=== PATIENT | female | born 1945 | race Caucasian/White ===

== ENCOUNTER 2017-09-18 12:05 | Day surgery (SDC) | payer MEDICARE ==
[~2017-09-18 12:05] MED LIST: Buffered Lidocaine 0.9% SYRIN* 5 ML/SYR SYRINGE INTRADERM ONE; Dexamethasone IV* 4 MG/ML 1 ML (4 MG) IV SLOW PU ONE; Famotidine IV* 10 MG/ML 2 ML (20 mg) IV ONE; Ondansetron ODT TAB* 4 MG PO ONE
[2017-09-18] MEDS ORDERED: Famotidine IV* 10 MG/ML 2 ML (20 mg) ONE (12:11)
[2017-09-18] MEDS ORDERED: Dexamethasone IV* 4 MG/ML 1 ML (4 MG) ONE (12:11)
[2017-09-18] MEDS ORDERED: Ondansetron ODT TAB* 4 MG ONE (12:11)
[2017-09-18] MEDS ORDERED: Levalbuterol 0.63MG/3ML NEB* UNIT OF USE INH ONE ×2 (12:25→12:31)
[2017-09-18] MEDS ORDERED: Atracurium* 10 MG/ML 10 ML VIAL ONE (13:44)
[2017-09-18] MEDS ORDERED: fentaNYL* 50 MCG/ML 5 ML VIAL (250 MCG VIAL) ONE (13:44)
[2017-09-18] MEDS ORDERED: Midazolam* 1 MG/ML 2 ML VIAL (2 MG) ONE (13:44)
[2017-09-18] MEDS ORDERED: Lidocaine 2% PF * 5 ML VIAL ONE (13:44)
[2017-09-18] MEDS ORDERED: fentaNYL* 50 MCG/ML 2 ML VIAL (100 MCG VIAL) IV PRN (14:24)
[2017-09-18] MEDS ORDERED: Ondansetron ODT TAB* 4 MG PO PRN (14:24)
[2017-09-18] MEDS ORDERED: Naloxone* 0.4 MG/ML 1 ML VIAL IV PRN (14:24)
[2017-09-18 16:35] VITALS: BP 127/65
--- NOTE | 2017-09-19 02:57 | PRO ---
BRONCHOSCOPY REPORT: DATE OF PROCEDURE: 09/18/17 PROCEDURE PERFORMED: Bronchoscopy with endobronchial ultrasound-guided fine needle aspiration from R4, L4 and station R10 nodes. PREPROCEDURAL DIAGNOSIS: Lung nodule, enlarged precarinal nodes. POSTPROCEDURAL DIAGNOSIS: Lymphadenopathy concerning for malignancy. ANESTHESIA: General anesthesia. ANESTHESIOLOGIST: Dr. Garcia. DESCRIPTION OF PROCEDURE: Informed consent was obtained from the patient prior to the procedure after all the risks and benefits were thoroughly explained. The patient recently had low-dose CT scan for evaluation of malignancy. Bronchoscopy was performed for evaluation of enlarged mediastinal nodes. The patient was intubated with size 8.5 endotracheal tube. Appropriate time-out was performed and agreed on by attending staff prior to the procedure. The flexible Olympus bronchoscope was inserted through ET tube for airway inspection. Evidence of thick white secretions were noted. 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 Secretions were suctioned out. No obvious endobronchial lesions were noted. Bronchoscope was then withdrawn and EBUS broncho-scope was inserted. Station R4 lymph nodes was significantly enlarged and was accessed with 6 passes. Rapid on-site evaluation revealed atypical cells towards 3rd, 4th and 5th passes. Rest of the specimen was placed in CytoLyt. Station L4 was accessed with two passes. Rapid on site evaluation revealed lymphatic tissue. Station R10 was then accessed with one pass. Rapid on-site evaluation revealed abnormal cells. Rest of specimen was placed in formalin. The patient tolerated the procedure well. The patient was extubated and seen in recovery in optimal condition. [id number]/[facility] #: [id number] MTDD
== END 2017-09-18 16:35 | disposition home or self-care (01) ==
LOC: OR 12:05
PROVIDERS: ATTEND Internal Medicine
DX: C96.9 Malignant neoplasm of lymphoid, hematopoietic and related tissue, unspecified (principal); Z87.891 Personal history of nicotine dependence; I48.91 Unspecified atrial fibrillation; Z79.01 Long term (current) use of anticoagulants; G47.33 Obstructive sleep apnea (adult) (pediatric); E66.01 Morbid (severe) obesity due to excess calories; E78.5 Hyperlipidemia, unspecified; I10 Essential (primary) hypertension; J45.40 Moderate persistent asthma, uncomplicated
CPT/HCPCS: 88172; 88173; 88305; 88341; 88342; 88360; A9270-GY; J1100; J2250; J3010

== ENCOUNTER 2017-12-30 15:05 | Inpatient (IN) | payer MEDICARE ==
[2017-12-30] MEDS ORDERED: Albuterol/Ipratropium NEB.SOL* Albuterol 2.5 MG/Ipratropium 0.5 MG 3 ML INH PRN (15:12)
--- OUTSIDE RECORDS SUMMARY | 2017-12-30 16:13 | XMS REPORT ---
:1945 External Reference #:[id number] Author Organization [facility] Address [address] [address] Phone [phone] Care Team Providers Name Role Phone Lorelei Pickett MD Care Team Information Manager Pacu Unavailable Lorelei Pickett MD Primary Care Physician Unavailable Payers Type Date Identification Numbers Payment Provider Subscriber Health Maintenance Expires: Policy Number: Medicare Pavel Naylor Organization (O) 07/22/2017 [id number] o Group Number: [id number] [address] [address] PayID: [id number] ROBINSON Prasad [id number] Commercial Effective: 06/23/2017 Policy Number: Mikey Maria Victoria/Todayronny Kassandra Naylor [id number] Options PayID: [id number] [address] [address] Attn: [place] [address] Problems Date Description Provider Status Onset: 06/19/2013 Dyspnea Abhishek Beck M.D. Active Onset: 06/19/2013 Electrocardiogram abnormal Abhishek Beck M.D. Active Onset: 06/19/2013 Paroxysmal supraventricular Abhishek Beck M.D. Active tachycardia Onset: 11/30/2014 Derangement of knee Nguyễn Mattson M.D. Active Onset: 11/30/2014 Osteoarthritis of knee Nguyễn Mattson M.D. Active Onset: 09/01/2015 Iliotibial band friction syndrome Nguyễn Mattson M.D. 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 Cigarette Use Former Cigarette Smoker ETOH Use Denies alcohol use Smoking Patient is a former smoker smoked 1-1/2 pack per day cigarettes for 30 years , quite 2004 Recreational Drug Use Denies Drug Use Daily Caffeine Comsumes on average 1 cup of decaff coffee per day Daily Caffeine consumes chocolate occasionally Exercise Type/Frequency Does not exercise Allergies, Adverse Reactions, Alerts Date Description Reaction Status Severity Comments 06/19/2013 Eggs or Egg-derived throat swelling active Moderate Products 06/19/2013 Codeine rapid heart beat active Moderate to Severe 06/19/2013 [place] Syrup tongue swelling active Severe 06/19/2013 Sulfa Antibiotics rash, buring active Moderate to Severe feeling 06/19/2013 Artichoke rash,buring active Moderate to Severe feeling 06/19/2013 Avocado rash and buring active Moderate to Severe feeling 06/19/2013 Levaquin rash active Moderate 06/19/2013 Clindamycin rash active Moderate 11/23/2015 Codeine active 05/28/2017 Dust Mites active 05/28/2017August Grass Pollen active Extract Medications Medication Date Status Form Strength Qnty SIG Indications Ordering Provider Prednisone 12/03 Active Tablets 5mg 60tab 2 tabs by J45.901 Matilde /2018 s mouth daily Norma, for 2 weeks and 1 tab daily for 2 weeks Azithromycin 12/03 Active Tablets 500mg 7tabs 1 tablet by J45.901 Matilde /2018 mouth daily Norma, for 7 days Symbicort 09/16 Active Aerosol 160-4.5mc 20.4g 1 puff Matilde /2018 g/Act m twice a day MD Norma Furosemide 09/13 Active Tablets 20mg 30tab 1 by mouth J45.909 Matilde /2017 s every day ( vidhi Green MD treatment end of 09/2016) Albuterol 07/05 Active Nebulizer 0.63mg/3M 225ml 1 unit, J45.41 Matilde Sulfate L nebl, every Norma, 6 hours, as MD needed Losartan 04/18 Active Tablets 100mg 90tab 1 by mouth Abhishek Potassium s every day James Beck M.D. Montelukast 11/21 Active Tablets 10mg 1 by mouth Unknown Sodium /2015 every day Atorvastatin Active Tablets 40mg 90tab 1 by mouth Unknown Calcium / s every day Vitamin D High Active Capsules 1000Unit 1 by mouth Unknown Potency / every day Xarelto Active Tablets 20mg 30tab 1 by mouth Abhishek / s every day James Beck M.D. Levocetirizine Active Tablets 5mg 1 by mouth Unknown Dihydrochloride / every day Levalbuterol Active Aerosol 45mcg/Act inhale 2 Unknown Tartrate puffs by mouth every 4 hours as needed Asmanex HFA Active Aerosol 200mcg/Ac 1 Unknown / t inhalation twice daily Diltiazem HCL ER Active Caps ER 360mg 1 cap po Blegen, Beads 24HR daily MD Lorelei Spiriva Respimat Active Aerosol 1.25mcg/A inhale two Unknown /0000 ct puffs by mouth every day Ventolin HFA Active Aerosol 108(90Bas 2 puffs by Unknown /0000 e) mouth four mcg/Act times a day as needed Xolair Active Solution 150mg 1 time per Unknown /0000 Rec month Magnesium Active Tablets 400mg 1 by mouth Unknown / every day Prednisone 09/23 Hx Tablets 5mg 90tab take 1 tab J45.40 Kasey S. s by mouth Fabian, - daily N.P. 12/03 Prednisone 05/28 Hx TBPK 10mg (21) 30uni 4 tabs J45.41 Matilde ts day#1, 3 Norma, - tabs day#2, 09/01 2 tabs /2017 day#3, 1 tab for 7 days, 1/2 tab for 7 days ( FInished ) Doxycycline 12/03 Hx Capsules 100mg 14cap 1 tablet by Matilde Monohydrate s mouth every Norma, - 12 hours ( MD 09/01 finished treatment) Prednisone 11/28 Hx Tablets 5mg 14tab 1 tab by R59.0 Matilde s mouth every Norma, - day every MD 05/27 morning (pt finished) Cefaclor ER 11/28 Hx Tablets ER 500mg 20tab 1 by mouth R59.0 Matilde /2017 12HR s twice a day Norma, - ( finished MD 09/15 treatment) Prednisone 07/26 Hx Tablets 5mg 14tab 1 tab by J45.41 Matilde s mouth every Norma, - day every MD 11/28 morning Prednisone 07/05 Hx Tablets 10mg 42tab 30mg daily J45.41 Matilde s for 1 week, Norma, - 20mg daily MD 07/25 for 1 week, 10 mg daily for 1 week Diltiazem CD 07/03 Hx Caps ER 180mg 1 by mouth Abhishek 24HR twice every D. Brand, - day M.D. 07/30 Dulera 11/21 Hx Aerosol 200-5mcg/ 2 puff Act twice a day - 11/27 Mobic 04/27 Hx Tablets 15mg 30tab take one M17.0 s tab by Srinivasan, - mouth once M.D. 03/16 a day take with food.(pt is not taking) Gabapentin 03/31 Hx Capsules 300mg 60cap 2 by mouth M76.32 s every night Srinivasan, - at bedtime M.D. 06/07 Losartan 00 Hx Tablets 50mg 30tab 1 by mouth Unknown Potassium /0000 s every day - 04/18 Diltiazem HCL ER 00 Hx Caps ER 360mg 30cap 1 by mouth Unknown /0000 24HR s every day - 07/04 Advair Diskus 0000 Hx Aerosol 250-50mcg 1 puff by Unknown /0000 /Dose mouth twice - a day 11/21 Fish Oil 00/ Hx Capsules 1000mg 1 by mouth Unknown /0000 every day - 11/23 Combivent 00 Hx Aerosol 20-100mcg 1unit 1 puffs 4-6 Unknown Respimat /0000 /Act s times daily - as needed 09/01 Gabapentin Hx Tablets 600mg 60tab 1 tabs by M76.32 Nguyễn /0000 s mouth every Srinivasan, - day at M.D. 02/19 bedtime as directed Augmentin 00 Hx not sure of Unknown /0000 dose, for - pneumonia 07/25 Clarinex Hx Tablets 5mg 1 by mouth Unknown /0000 every day - 12/20 Mometasone Hx Suspension 50mcg/Act spray 2 Unknown Furoate /0000 sprays into - each 07/30 nostril times daily Augmentin Hx Tablets 875-125mg 1 tablet by Unknown /0000 mouth q12 - hours for 07/30 Prednisone Hx Tablets 5mg 1 tablet po Blegen, /0000 daily ( Lorelei - isak GABRIEL 09/2307/31/17 Nitrofurantoin Hx Capsules 100mg 2 by mouth Unknown Monohyd Macro /0000 daily for 7 - days 09/15 Allergy Shots Hx once a Matilde Zolair? /0000 month Karen Green MD 09/15 Medications Administered in Office Medication Date Status Form Strength Qnty SIG Indications Ordering Provider Depomedrol Administered Injection Christian F 40MG 017 MD Annemarie Depomedrol Administered Injection Arcelia 40MG 016 JEANNA Wells Depomedrol Administered Injection Arcelia 40MG 016 JEANNA Wells Depomedrol Administered Injection Arcelia 40MG 016 JEANNA Wells Depomedrol Administered Injection Nguyễn 80MG 015 Ashly Mattson Inj, Administered Injection Abhishek Ramirez Regadenoson, 014 Ashly Beck 0.1 MG Technetium TC Administered Injection Abhishek Ramirez 99M 014 Ashly Beck Tetrofosmin, Per Unit Dose Up To 40 Millicuries Depomedrol Administered Injection Nguyễn 80MG 011 Ashly Mattson Vital Signs Date Vital Result Comment 12/03/2017 Height 64 inches 5'4" Weight 280.12 lb shoes on Heart Rate 78 /min BP Systolic Sitting 128 mmHg left arm, large cuff, sitting BP Diastolic Sitting 58 mmHg left arm, large cuff, sitting Respiratory Rate 16 /min Body Temperature 98.4 F O2 % BldC Oximetry 94 % BMI (Body Mass Index) 48.1 kg/m2 09/23/2017 Height 64 inches 5'4" Weight 279.50 lb Heart Rate 70 /min BP Systolic Sitting 132 mmHg Lue large cuff BP Diastolic Sitting 60 mmHg Lue large cuff Respiratory Rate 24 /min O2 % BldC Oximetry 93 % On Ra BMI (Body Mass Index) 48.0 kg/m2 09/16/2017 Height 64 inches 5'4" Weight 281.25 lb Heart Rate 78 /min BP Systolic Sitting 116 mmHg Lue large cuff BP Diastolic Sitting 54 mmHg Lue large cuff Respiratory Rate 26 /min O2 % BldC Oximetry 95 % On Ra BMI (Body Mass Index) 48.3 kg/m2 09/02/2017 Height 64 inches 5'4" Weight 283.00 lb Heart Rate 75 /min BP Systolic Sitting 126 mmHg Lue large cuff BP Diastolic Sitting 72 mmHg Lue large cuff Respiratory Rate 24 /min O2 % BldC Oximetry 93 % BMI (Body Mass Index) 48.6 kg/m2 07/31/2017 Height 64 inches 5'4" Weight 287.00 lb with shoes Heart Rate 68 /min BP Systolic Sitting 146 mmHg Rue lg cuff BP Diastolic Sitting 78 mmHg Rue lg cuff BP Systolic Standing 150 mmHg Rue lg cuff BP Diastolic Standing 80 mmHg Rue lg cuff Respiratory Rate 20 /min O2 % BldC Oximetry 95 % at room air BMI (Body Mass Index) 49.3 kg/m2 Ejection Fraction >65% date 11/03/15 ECHO 05/28/2017 Height 64 inches 5'4" Weight 279.00 lb Heart Rate 76 /min BP Systolic Sitting 134 mmHg BP Diastolic Sitting 66 mmHg Respiratory Rate 14 /min O2 % BldC Oximetry 92 % BMI (Body Mass Index) 47.9 kg/m2 01/23/2017 Height 64 inches 5'4" Weight 282.00 lb with shoes Heart Rate 76 /min BP Systolic Sitting 146 mmHg Lue lrg cuff BP Diastolic Sitting 68 mmHg Lue lrg cuff BP Systolic Standing 150 mmHg Lue lrg cuff BP Diastolic Standing 70 mmHg Lue lrg cuff Respiratory Rate 17 /min BMI (Body Mass Index) 48.4 kg/m2 Ejection Fraction >65% 11/03/2015-echo 12/21/2016 Height 64 inches 5'4" Weight 280.00 lb with shoes Heart Rate 70 /min BP Systolic Sitting 130 mmHg Lue lg cuff BP Diastolic Sitting 70 mmHg Lue lg cuff BP Systolic Standing 142 mmHg Lue lg cuff BP Diastolic Standing 70 mmHg Lue lg cuff Respiratory Rate 17 /min BMI (Body Mass Index) 48.1 kg/m2 Ejection Fraction >65% date 11/03/2015 ECHO 11/28/2016 Height 64 inches 5'4" Weight 278.00 lb Heart Rate 72 /min BP Systolic Sitting 126 mmHg BP Diastolic Sitting 70 mmHg Respiratory Rate 14 /min O2 % BldC Oximetry 95 % BMI (Body Mass Index) 47.7 kg/m2 09/13/2016 Height 64 inches 5'4" Weight 282.00 lb Heart Rate 74 /min BP Systolic Sitting 150 mmHg BP Diastolic Sitting 76 mmHg Respiratory Rate 24 /min O2 % BldC Oximetry 96 % room air BMI (Body Mass Index) 48.4 kg/m2 07/26/2016 Height 64 inches 5'4" Weight 270.00 lb Heart Rate 66 /min BP Systolic Sitting 122 mmHg BP Diastolic Sitting 78 mmHg Respiratory Rate 18 /min Pain Level 0 O2 % BldC Oximetry 97 % BMI (Body Mass Index) 46.3 kg/m2 07/23/2016 Height 64 inches 5'4" Weight 270.00 lb Heart Rate 60 /min BP Systolic 148 mmHg BP Diastolic 69 mmHg Respiratory Rate 16 /min Body Temperature 98.0 F Pain Level 2 BMI (Body Mass Index) 46.3 kg/m2 07/05/2016 Height 64 inches 5'4" Heart Rate 77 /min BP Systolic Sitting 100 mmHg BP Diastolic Sitting 40 mmHg Respiratory Rate 18 /min Pain Level 0 discomfort in neck - cutting off breath O2 % BldC Oximetry 92 % 07/04/2016 Height 64 inches 5'4" Weight 263.50 lb with shoes Heart Rate 68 /min irregular BP Systolic Sitting 138 mmHg Lue large cuff BP Diastolic Sitting 60 mmHg Lue large cuff BP Systolic Standing 132 mmHg Lue large cuff BP Diastolic Standing 60 mmHg Lue large cuff Respiratory Rate 18 /min O2 % BldC Oximetry 91 % BMI (Body Mass Index) 45.2 kg/m2 Ejection Fraction less 65% 11/07 echo 06/18/2016 Height 64 inches 5'4" Weight 270.00 lb Heart Rate 32 /min BP Systolic 165 mmHg BP Diastolic 73 mmHg Respiratory Rate 16 /min Body Temperature 98.1 F Pain Level 4 BMI (Body Mass Index) 46.3 kg/m2 04/30/2016 Height 64 inches 5'4" Weight 270.00 lb Heart Rate 66 /min BP Systolic 153 mmHg BP Diastolic 67 mmHg Respiratory Rate 20 /min Pain Level 6 BMI (Body Mass Index) 46.3 kg/m2 04/18/2016 Height 64 inches 5'4" Weight 270.00 lb w/o shoes Heart Rate 78 /min irreg BP Systolic Sitting 148 mmHg Lue, lg cuff BP Diastolic Sitting 74 mmHg Lue, lg cuff BP Systolic Standing 142 mmHg Lue BP Diastolic Standing 74 mmHg Lue Respiratory Rate 20 /min BMI (Body Mass Index) 46.3 kg/m2 Ejection Fraction > 65% as of 11/03/15 echo 04/12/2016 Height 64 inches 5'4" Weight 262.00 lb Heart Rate 56 /min BP Systolic 144 mmHg BP Diastolic 58 mmHg BMI (Body Mass Index) 45.0 kg/m2 02/21/2016 Height 64 inches 5'4" Weight 265.00 lb Heart Rate 105 /min BP Systolic Sitting 148 mmHg BP Diastolic Sitting 78 mmHg Respiratory Rate 16 /min O2 % BldC Oximetry 96 % BMI (Body Mass Index) 45.5 kg/m2 01/04/2016 Height 64.5 inches 5'4.50" Weight 261.00 lb Heart Rate 61 /min BP Systolic Sitting 142 mmHg BP Diastolic Sitting 74 mmHg Respiratory Rate 16 /min O2 % BldC Oximetry 95 % BMI (Body Mass Index) 44.1 kg/m2 11/25/2015 Height 64.5 inches 5'4.50" Weight 261.00 lb with shoes BP Systolic Sitting 154 mmHg Ra lrg cuff BP Diastolic Sitting 72 mmHg Ra lrg cuff BP Systolic Standing 148 mmHg Ra lrg cuff BP Diastolic Standing 72 mmHg Ra lrg cuff Respiratory Rate 18 /min BMI (Body Mass Index) 44.1 kg/m2 Ejection Fraction 55-60% 11/03/15 11/23/2015 Height 64.5 inches 5'4.50" Weight 263.12 lb Heart Rate 68 /min BP Systolic Sitting 134 mmHg BP Diastolic Sitting 79 mmHg Respiratory Rate 18 /min O2 % BldC Oximetry 94 % BMI (Body Mass Index) 44.5 kg/m2 11/16/2015 Height 64.5 inches 5'4.50" Weight 245.00 lb Pain Level 8 BMI (Body Mass Index) 41.4 kg/m2 09/01/2015 Height 64.5 inches 5'4.50" Weight 245.00 lb Heart Rate 72 /min BP Systolic Sitting 138 mmHg BP Diastolic Sitting 78 mmHg Respiratory Rate 18 /min Pain Level 2 BMI (Body Mass Index) 41.4 kg/m2 07/29/2015 Height 64.5 inches 5'4.50" Weight 247.00 lb Pain Level 7 BMI (Body Mass Index) 41.7 kg/m2 06/08/2015 Height 64.5 inches 5'4.50" Weight 247.00 lb BMI (Body Mass Index) 41.7 kg/m2 04/27/2015 Height 64.5 inches 5'4.50" Weight 247.00 lb Pain Level 8 BMI (Body Mass Index) 41.7 kg/m2 03/31/2015 Height 64.50 inches 5'4.50" Weight 247.00 lb Pain Level 8 BMI (Body Mass Index) 41.7 kg/m2 01/04/2015 Height 64.50 inches 5'4.50" Weight 247.00 lb Respiratory Rate 20 /min Pain Level 2 BMI (Body Mass Index) 41.7 kg/m2 11/30/2014 Height 64.50 inches 5'4.50" Weight 247.00 lb BP Systolic Sitting 148 mmHg BP Diastolic Sitting 69 mmHg Respiratory Rate 18 /min Pain Level 4 BMI (Body Mass Index) 41.7 kg/m2 07/14/2013 Height 64.50 inches 5'4.50" Weight 253.00 lb with shoes Heart Rate 66 /min BP Systolic Sitting 130 mmHg LA lg cuff BP Diastolic Sitting 60 mmHg LA lg cuff BP Systolic Standing 122 mmHg BP Diastolic Standing 60 mmHg Respiratory Rate 16 /min BMI (Body Mass Index) 42.8 kg/m2 06/19/2013 Height 65 inches 5'5" Weight 247.00 lb with shoes Heart Rate 70 /min BP Systolic 130 mmHg Ra lg cuff BP Diastolic 70 mmHg Ra lg cuff BP Systolic Sitting 128 mmHg Ra lg cuff BP Diastolic Sitting 70 mmHg Ra lg cuff BP Systolic Standing 124 mmHg LA lg cuff BP Diastolic Standing 70 mmHg LA lg cuff Respiratory Rate 17 /min BMI (Body Mass Index) 41.1 kg/m2 12/13/2010 Height 64 inches 5'4" Weight 247.00 lb Heart Rate 71 /min BP Systolic 144 mmHg BP Diastolic 70 mmHg BMI (Body Mass Index) 42.4 kg/m2 Results Test Date Test Result H/L Range Note Platelet Count 11/01/2017 Platelet Count 259 10^3/uL 150-450 Mean Platelet Volume 9.1 um3 7.4-10.4 Inr/Protime 11/01/2017 Inr 0.96 0.77-1.02 Laboratory test 11/01/2017 Partial Thrombo Time PTT 27.2 seconds 26.0- 36.3 finding Leukemia/Lymphoma Flow 10/31/2017 Path Interpretation 2-8 tnp Marker Path Interpret 9-15 Marker (SEE NOTE) 1 Path Interpret > 16 Marker tnp Laboratory test finding 10/31/2017 Cytology Non-Deputy K 9 SEE RESULT BELOW 2 Laboratory test finding 09/18/2017 Cytology Non-Deputy K 9 SEE RESULT BELOW 3 Comp Metabolic Panel 09/28/2016 Sodium 140 mmol/L 133-145 Potassium 3.6 mmol/L 3.5-5.0 Chloride 104 mmol/L 101-111 Co2 Carbon Dioxide 24 mmol/L 22-32 Anion Gap 12 mmol/L High 2-11 Glucose 91 mg/dL 70-100 Blood Urea Nitrogen 13 mg/dL 6-24 Creatinine 0.93 mg/dL 0.51-0.95 BUN/Creatinine Ratio 14.0 8-20 Calcium 9.9 mg/dL 8.6-10.3 Total Protein 6.8 g/dL 6.4-8.9 Albumin 4.0 g/dL 3.2-5.2 Globulin 2.8 g/dL 2-4 Albumin/Globulin Ratio 1.4 1-3 Total Bilirubin 0.60 mg/dL 0.2-1.0 Alkaline Phosphatase 68 U/L 34-104 Alt 30 U/L 7-52 Ast 14 U/L 13-39 Egfr Non- 59.6 >60 Egfr 76.7 >60 4 CBC Auto Diff 09/28/2016 White Blood Count 14.7 10^3/uL High 3.5-10.8 Red Blood Count 4.02 10^6/uL 4.0-5.4 Hemoglobin 12.9 g/dL 12.0-16.0 Hematocrit 40 % 35-47 Mean Corpuscular Volume 99 fL High 80-97 Mean Corpuscular Hemoglobin 32 pg High 27-31 Mean Corpuscular HGB Conc 32 g/dL 31-36 Red Cell Distribution Width 15 % 10.5-15 Platelet Count 275 10^3/uL 150-450 Mean Platelet Volume 10 um3 7.4-10.4 Abs Neutrophils 10.7 10^3/uL High 1.5-7.7 Abs Lymphocytes 2.7 10^3/uL 1.0-4.8 Abs Monocytes 1.0 10^3/uL High 0-0.8 Abs Eosinophils 0.2 10^3/uL 0-0.6 Abs Basophils 0.1 10^3/uL 0-0.2 Abs Nucleated RBC 0.01 10^3/uL Granulocyte % 72.9 % 38-83 Lymphocyte % 18.3 % Low 25-47 Monocyte % 6.6 % 1-9 Eosinophil % 1.4 % 0-6 Basophil % 0.8 % 0-2 Nucleated Red Blood Cells % 0 Laboratory test finding 09/28/2016 Immunoglobulin E 262 kU/L <=214 5 CBC Auto Diff 07/26/2016 White Blood Count 16.7 10^3/uL High 3.5-10.8 Red Blood Count 3.99 10^6/uL Low 4.0-5.4 Hemoglobin 12.5 g/dL 12.0-16.0 Hematocrit 39 % 35-47 Mean Corpuscular Volume 98 fL High 80-97 Mean Corpuscular Hemoglobin 31 pg 27-31 Mean Corpuscular HGB Conc 32 g/dL 31-36 Red Cell Distribution Width 15 % 10.5-15 Platelet Count 228 10^3/uL 150-450 Mean Platelet Volume 10 um3 7.4-10.4 Abs Neutrophils 11.6 10^3/uL High 1.5-7.7 Abs Lymphocytes 3.3 10^3/uL 1.0-4.8 Abs Monocytes 1.4 10^3/uL High 0-0.8 Abs Eosinophils 0.2 10^3/uL 0-0.6 Abs Basophils 0.1 10^3/uL 0-0.2 Abs Nucleated RBC 0 10^3/uL Granulocyte % 69.6 % 38-83 Lymphocyte % 19.8 % Low 25-47 Monocyte % 8.7 % 1-9 Eosinophil % 1.0 % 0-6 Basophil % 0.9 % 0-2 Nucleated Red Blood Cells % 0 Laboratory test finding 07/26/2016 Immunoglobulin E (Ige) 362 kU/L <=214 6 Anti Nuclear Antibody 0.3 U 7 1 FINAL DIAGNOSIS: Specimen Source: Left parotid ([id number]) Flow cytometry immunophenotypic analysis: No evidence of an immunophenotypically abnormal cell population. Interpretative data: Lymphocytes: 73% of gated events B-cells: 10% of lymphs; kappa:lambda within normal limits T-cells/NK cells: No aberrant population detected. Markers tested: CD3, CD5, CD7, CD10, CD19, CD20, CD23, CD45, kappa surface light chains, lambda surface light chains, 7-AAD. Quality Assessment: Acceptable Viability: Acceptable Viable lymphocytes (7-AAD): 99% Specimen received within validated guidelines. A Melendez-Giemsa stained slide prepared from the flow cytometry specimen was examined for quality purposes. Electronically signed by: Candi Joe MD 11/04/17 0949 Technical component performed by: [place] [address] Conductor Symphonic Orchestra: Federico Dow II, MD, PhD. 2 SEE RESULT BELOW Name: KASSANDRA NAYLOR : [address]: Ishmael AZEVEDO Acct: [id number] Unit: [id number] AGE: 72 Location: Re10/31/17 SEX: F Status: REG REF SPEC: [id number] PAWEL: 10/31/17-[address] [facility] [address]: Ishmael AZEVEDO REQ: [id number] RECD: 10/31/17 STATUS: TERESSA MONTERO DR: Bruce Bruno MD _ ORDERED: FNA-IMG GUID BX, CY ADEQ-ADDL P, LEVEL 4, CYTO ADEQ-1ST P Flow cytometry has been performed at [facility], [place], [place]. The testing reveals: FINAL DIAGNOSIS: Specimen Source: Left parotid ([id number]) Flow cytometry immunophenotypic analysis:No evidence of an immunophenotypically abnormal cell population. Interpretative data: Lymphocytes: 73% of gated events B-cells: 10% of lymphs; kappa:lambda within normal limits T-cells/NK cells: No aberrant population detected. Markers tested: CD3, CD5, CD7, CD10, CD19, CD20, CD23, CD45, kappa surface light chains, lambda surface light chains, 7-AAD. Quality Assessment: Acceptable Viability: Acceptable Viable lymphocytes (7-AAD): 99% Specimen received within validated guidelines. A Melendez-Giemsa stained slide prepared from the flow cytometry specimen was examined for quality purposes. Electronically signed by: Candi Joe MD11/04/17 0949 Technical component performed by: [place] [address] Conductor Symphonic Orchestra: Federico Dow II, MD, PhD. Addendum Signed (signature on file) Candi Joe MD 1706 FINAL DIAGNOSIS CONTINUED ON NEXT PAGE DEPARTMENT OF PATHOLOGY, [address] [place] [address] Apolinar Louis M.D. Director [facility] # [id number] RUN DATE: 11/05/17 [facility] LAB LIVE PAGE 2 Patient: KASSANDRA NAYLOR [id number] (Continued) FINAL DIAGNOSIS (Continued) Left parotid lymph node, ultrasound-guided fine needle aspiration: -- Benign lymphoid tissue. -- No evidence of malignancy. COMMENT: Flow cytometry is negative for an immunophenotypically abnormal cell population. A. PAROTID LEFT - US GUIDED LEFT PAROTID FINE NEEDLE ASPIRATION CLINICAL HISTORY Left parotid nodule. 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 GROSS DESCRIPTION Ultrasound guided, fine needle aspiration x 3 passes with 4 Alcohol fixed slide(s), 2 Air dried slide(s), needle rinse in formalin for cell blockand Specimen sent to [facility] for Flow cytometry [place], [place] on 10/31/17. Signed by and Reported on: Candi Joe MD 11/04/17 1055 END OF REPORT DEPARTMENT OF PATHOLOGY, [address] [place] [id number] Apolinar Louis M.D. Director [facility] # [id number] 3 SEE RESULT BELOW Name: KASSANDRA NAYLOR : [address]: Matilde Green MD Acct: [id number] Unit: [id number] AGE: 72 Location: OR Re09/18/17 SEX: F Status: DEP SDC SPEC: [id number] PAWEL: 09/18/17-[address]: Matilde Green MD REQ: [id number] RECD: 09/18/17153 STATUS: SOUT _ ORDERED: FNA-IMG GUID BX/3, LEVEL 4/3, CYTO ADEQ-1ST P/3, IMMUNO-FIRST, IMMUNO-AD IMMUNO-QUANT Immunohistochemical stains, with appropriately reacting controls, were performed on sections cut from the cell block from specimen 1 with the following results: Chromogranin focally positive CD56 positive Synaptophysin focally positive Pankeratin positive TTF-1 positive Ki67 proliferation index of approximately 85%, quantitated manually The immunoprofile support the previously rendered diagnosis. Addendum Signed (signature on file) Candi Joe MD 1343 FINAL DIAGNOSIS 1. 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 2. Lymph node, L4, Endobronchial ultrasound guided fine needle aspiration: --Benign bronchial epithelium and lymphoid tissue. --No evidence of malignancy identified. 3. Lymph node, R10, Endobronchial ultrasound guided fine needle aspiration: --Benign bronchial epithelium, macrophages and lymphoid tissue. --No evidence of malignancy identified. CONTINUED ON NEXT PAGE DEPARTMENT OF PATHOLOGY, [address] [place] [address] Apolinar Louis M.D. Director [facility] # [id number] RUN DATE: 09/20/17 [facility] LAB LIVE PAGE 2 Patient: KASSANDRA NAYLOR [id number] (Continued) FINAL DIAGNOSIS (Continued) Comment: Dr. Joe has reviewed this case and concurs. A cell block was prepared in the evaluation of this specimen. Smears and cell block reveal similar findings. #1. LYMPH NODE - US GUIDED ENDOBRONCHIAL R-4 LYMPH NODE FINE NEEDLE ASPIRATION, #2. LYMPH NODE - US GUIDED ENDOBRONCHIAL L-4 LYMPH NODE FINE NEEDLE ASPIRATION, #3. LYMPH NODE - US GUIDED ENDOBRONCHIAL R-10 LYMPH NODE FINE NEEDLE ASPIRATION CLINICAL HISTORY 1. R4 lymph node. 2. L4 lymph node. 3. R10 lymph node. IMMEDIATE INTERPRETATION 1. Pass 1-5 adequate 2. Pass 1 2-adequate 3. Pass 1-adequate GROSS DESCRIPTION 1. Endobronchial ultrasound guided fine needle aspiration x 5 passes, 4 alcohol fixed slides, 5 air dried slides and needle rinse in formalin for cell block. 2. Endobronchial ultrasound guided fine needle aspiration x 2 passes, 2 alcohol fixed slides and needle rinse in formalin for cell block. 3. Endobronchial ultrasound guided fine needle aspiration x 1 pass, 1 alcohol fixed slide and needle rinse in formalin for cell block. Signed by and Reported on: Apolinar Louis MD 1210 END OF REPORT DEPARTMENT OF PATHOLOGY, [address] [place] [address] Apolinar Louis M.D. Director [facility] # [id number] 4 Because ethnic data is not always readily available, this report includes an eGFR for both -Americans and non- Americans. The National Kidney Disease Education Program (NKDEP) does not endorse the use of the MDRD equation for patients that are not between the ages of 18 and 70, are , have extremes of body size, muscle mass, or nutritional status, or are non- or non-. According to the National Kidney Foundation, irrespective of diagnosis, the stage of the disease is based on the level of kidney function: Stage Description GFR(mL/min/1.73 m(2)) 1 Kidney damage with normal or decreased GFR 90 2 Kidney damage with mild decrease in GFR 60-89 3 Moderate decrease in GFR 30-59 4 Severe decrease in GFR 15-29 5 Kidney failure <15 (or dialysis) 5 Test Performed by: [facility] [address] [place] [address] 6 Test Performed by: [facility] [address] [place] [address] 7 REFERENCE VALUE <=1.0 (Negative) Test Performed by: [facility] [address] [place] [address] Procedures Date CPT Code Description Status 10/21/2017 62912 Implantable Cardio System Loop Recorder Sys Remota Data Completed Acquistio 10/21/2017 07311 Interrogation Dev Loop Recorder Incl Physician Completed Analysis,Rev,Repor 09/20/2017 77669 Implantable Cardio System Loop Recorder Sys Remota Data Completed Acquistio 09/20/2017 52555 Interrogation Dev Loop Recorder Incl Physician Completed Analysis,Rev,Repor 09/18/2017 89207 Endobronchial Ultrasound=>3 Completed 08/20/2017 34132 Implantable Cardio System Loop Recorder Sys Remota Data Completed Acquistio 08/20/2017 05022 Interrogation Dev Loop Recorder Incl Physician Completed Analysis,Rev,Repor 07/31/2017 78093 EKG Tracing & Interpretation Completed 07/20/2017 29145 Implantable Cardio System Loop Recorder Sys Remota Data Completed Acquistio 07/20/2017 98304 Interrogation Dev Loop Recorder Incl Physician Completed Analysis,Rev,Repor 06/19/2017 27546 Interrogation Dev Loop Recorder Incl Physician Completed Analysis,Rev,Repor 06/19/2017 96282 Implantable Cardio System Loop Recorder Sys Remota Data Completed Acquistio 05/19/2017 00405 Implantable Cardio System Loop Recorder Sys Remota Data Completed Acquistio 05/19/2017 12720 Interrogation Dev Loop Recorder Incl Physician Completed Analysis,Rev,Repor 04/18/2017 40199 Implantable Cardio System Loop Recorder Sys Remota Data Completed Acquistio 04/18/2017 57502 Interrogation Dev Loop Recorder Incl Physician Completed Analysis,Rev,Repor 03/18/2017 89180 Implantable Cardio System Loop Recorder Sys Remota Data Completed Acquistio 03/18/2017 11319 Interrogation Dev Loop Recorder Incl Physician Completed Analysis,Rev,Repor 02/15/2017 00200 Implantable Cardio System Loop Recorder Sys Remota Data Completed Acquistio 02/15/2017 72710 Interrogation Dev Loop Recorder Incl Physician Completed Analysis,Rev,Repor 01/14/2017 92110 Implant Cardiac Loop Recorder Completed 12/21/2016 36088 EKG Tracing & Interpretation Completed 07/04/2016 27132 EKG Tracing & Interpretation Completed 04/18/2016 56232 EKG Tracing & Interpretation Completed 04/12/2016 69423 Inject/Drain Joint/Bursa Major W/O US Completed 12/21/2015 09436 Polysomnography Sleep Staging 4+ Parameters Completed 12/14/2015 68655 Diffusing Capacity Completed 12/14/2015 33844 Plethysmography Determination Lung Volumes & Per Airway Completed Resist 12/14/2015 18093 Pulmonary Function><Bronchodil Completed 11/25/2015 61317 EKG Tracing & Interpretation Completed 11/16/2015 61686 Inject/Drain Joint/Bursa Major W/O US Completed 11/03/2015 93835 ECHO Transthorasic Realtime 2D W Doppler & Color Flow Completed Hosp 07/29/2015 60498 Inject/Drain Joint/Bursa Major W/O US Completed 07/29/2015 31117 Inject/Drain Joint/Bursa Major W/O US Completed 04/27/2015 58005 Inject/Drain Joint/Bursa Major W/O US Completed 11/30/2014 60660 Inject/Drain Joint/Bursa Major W/O US Completed 07/01/2013 90514 Stress Test Completed 07/01/2013 91292 Myocardial Perfusion Imaging Tomographic (Spect) Completed Multiple Studies 12/13/2010 44902 Xray Knee 3 Views Completed 12/13/201027973 Inject/Drain Joint/Bursa Major W/O US Completed 12/05/2010 46310 Color Flow Doppler/Interp & Reprt Completed 12/05/2010 39128 Pulse Wave/Continuous-Interp.RPT Completed 12/05/2010 19193 ECHO Transthorasic Realtime 2D W Doppler & Color Flow Completed Hosp Encounters Type Date Location Provider CPT E/M Dx Office Visit 09/23/2017 [facility]ology [facility] Sleep Kasey Peralta, 24620 G47.33 10:30a [facility] N[facility] E66.09 J45.40 C34.90 Office Visit 09/16/2017 12:30p [facility] [place] [address] R59.0 [facility] Office Visit 09/02/2017 9:15a [place] [address] J45.41 [facility] G47.33 E66.09 Office Visit 07/31/2017 11:30a [facility], 64538 I48.0 [facility] M.D. Z95.818 Office Visit 05/28/2017 12:30p [facility] [place] [address] J45.41 Services [place] G47.33 E66.09 Office Visit 01/23/2017 10:15a [facility], [address]113 I48.0 [facility] M.D. I10 Office Visit 12/21/2016 11:15a [facility], 35188 I48.0 [facility] M.D. I10 R06.02 Office Visit 11/28/2016 11:00a [facility] [place] [address] G47.33 [facility] J45.40 J01.80 Office Visit 09/13/2016 1:30p [facility] [place] [address] J45.41 [facility] J30.9 G47.33 E66.01 Z68.42 Office Visit 07/26/2016 10:45a [facility] [place] [address] J45.41 [facility] G47.33 E66.01 Z68.42 Office Visit 07/23/2016 1:00p [facility] 46707 M75.31 Ahsan GABRIEL M19.011 M75.41 Office Visit 07/05/2016 10:45a [facility] [place] [address] J45.41 [facility] G47.33 E66.01 Office Visit 07/04/2016 10:30a [facility] Abhishek Beck, 84694 I48.0 [facility] M.D. J44.0 I10 Z01.810 M19.011 Office Visit 06/18/2016 2:45p [facility], 59576 M75.31 Ahsan GABRIEL M19.011 M75.41 Office Visit 04/30/2016 11:15a [facility], 93016 M75.31 Ahsan GABRIEL M75.41 M19.011 Office Visit 04/18/2016 11:00a [facility] Abhishek Beck, 12287 I48.0 [facility] M.D. R06.02 J44.0 I10 Office Visit 04/12/2016 10:30a [facility] 648[address] S46.011A Of Ahsan Sharpe MD M75.41 M19.011 Office Visit 02/21/2016 11:30a [facility] [place] [address] J45.909 [facility] G47.33 Office Visit 01/04/2016 11:30a [facility] [place] [address] G47.33 [facility] J45.909 Office Visit 11/25/2015 1:00p [facility] Abhishek Beck, 45582 I48.0 [facility] M.D. J44.0 R94.31 Office Visit 11/23/2015 11:30a [facility] [place] [address] R06.02 [facility] J45.909 G47.9 E66.01 Office Visit 11/03/2015 4:06p [facility] Vladimir Rodriguez, 45972 I48.91 Hospitalists M.James I48.0 J44.0 E66.01 Office Visit 11/02/2015 7[facility] 57338 I48.91 [facility]oc[facility] JOLLY Hospitalists J44.0 I10 Office Visit 09/01/2015 4:00p [facility], 90098 M76.32 Ahsan Limon Office Visit 06/08/2015 10:40a [facility], 12516 M17.0 C.M.A. ANP-C M76.32 M70.62 Office Visit 04/27/2015 10:40a [facility], 28152 M17.0 C.M.A. ANP-C M76.32 M70.62 Office Visit 03/31/2015 11:20a [facility], 62351 M17.0 C.M.A. ANP-C M76.32 Office Visit 01/04/2015 1:30p [facility], 57737 M70.62 C.M.A. ANP-C M23.8x2 M17.0 Office Visit 11/30/2014 1:30p [facility], 78729 717.89 C.M.A. M.DTravis 715.96 Office Visit 07/14/2013 1:15p [facility] Abhishek Beck, 22410 794.31 [facility] M.DTravis 786.05 Office Visit 06/19/2013 2:00p [facility] Abhishek Beck, 50922 786.05 [facility] M.DTravis 794.31 427.0 Office Visit 01/30/2011 8:45a [facility], 16025 715.96 C.M.A. M.D. Office Visit 12/13/2010 1:15p [facility], 05724 715.96 C.M.A. M.D. 836.0 Plan of Care 12/03/2017 - RADHA Welch45.901 Unspecified asthma with (acute) exacerbationNew Medication:Prednisone 5 mgAzithromycin 500 mgNew Labs:Sputum Culture & SensitivNew Xrays:Chest PA & Lat 2 VWSFollow up:1 weekJ20.9 Acute bronchitis, nifyzkupmwmR61.33 Obstructive sleep apnea (adult) (pediatric) C34.90 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 bronchus or lungE66.09 Other obesity due to excess calories
--- OUTSIDE RECORDS SUMMARY | 2017-12-30 16:13 | XMS REPORT ---
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 Unavailable Lorelei Pickett MD Primary Care Physician Unavailable Payers Type Date Identification Numbers Payment Provider Subscriber Health Maintenance Expires: Policy Number: Medicare Pavel Naylor Organization (O) 07/22/2017 [id number] o Group Number: [id number] [address] [address] PayID: [id number] ROBINSON Prasad [id number] Commercial Effective: 06/23/2017 Policy Number: Mikey Maria Victoria/Todayronny Kassandra Naylor [id number] Options PayID: [id number] [address] [address] Attn: [place] [address] Problems Date Description Provider Status Onset: 06/19/2013 [...] With Occupation 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 Cigarette Use Former Cigarette Smoker ETOH Use [...] heart beat active Moderate to Severe 06/19/2013 [place] tongue swelling active Severe 06/19/2013 Sulfa [...] 5mg 60tab 2 tabs by J45.901 Matilde s mouth daily MD Norma Symbicort 09/16 Active Aerosol 160-4.5mc 20.4g 1 puff Matilde g/Act m twice a day MD Norma Furosemide 09/13 Active Tablets 20mg 30tab 1 by mouth J45.909 Matilde s every day ( vidhi Green MD treatment end of 09/2016) Albuterol 07/05 Active Nebulizer 0.63mg/3M 225ml 1 unit, J45.41 Matilde L nebl, every Norma, 6 hours, as [...] Tablets 5mg 1 by mouth Unknown Dihydrochloride every day Levalbuterol Active Aerosol 45mcg/Act inhale 2 Unknown Tartrate puffs by mouth every 4 hours as needed Asmanex HFA Active Aerosol 200mcg/Ac 1 Unknown t inhalation twice daily Diltiazem HCL ER Active Caps ER 360mg 1 cap po Blegen, Beads 24HR daily MD Lorelei Spiriva Respimat Active Aerosol 1.25mcg/A inhale two Unknown 0000 ct puffs by mouth every day Ventolin HFA Active Aerosol 108(90Bas 2 puffs by Unknown /0000 e) mouth four mcg/Act times a day as needed Magnesium Active Tablets 400mg 1 by mouth Unknown / every day Carboplatin Active Solution 600mg/60M chemo Unknown / L infusion Etoposide Active Solution 230 chemo Unknown infusion Azithromycin 12/03 Hx Tablets 500mg 7tabs 1 tablet by J45.901 Matilde /2018 mouth daily Norma, - for 7 days 12/09 Prednisone 09/23 Hx Tablets 5mg 90tab take 1 tab J45.40 Kasey S. s by mouth Foster, - daily N.P. 12/03 Prednisone 05/28 Hx TBPK 10mg (21) 30uni 4 tabs J45.41 Matilde /2018 ts day#1, 3 Norma, - tabs day#2, 09/01 2 tabs /2017 day#3, 1 tab for 7 days, 1/2 tab for 7 days ( FInished ) Doxycycline 12/03 Hx Capsules 100mg 14cap 1 tablet by Matilde Monohydrate /2016 s mouth every Norma, - 12 hours [...] Hx Caps ER 180mg 1 by mouth 24HR twice every D. Brand, - day [...] every day - 04/18 Diltiazem HCL ER Hx Caps ER 360mg 30cap 1 by mouth Unknown /0000 24HR s every day - 07/04 Advair Diskus Hx Aerosol 250-50mcg 1 puff by Unknown /0000 /Dose mouth twice - a day 11/21 Fish Oil Hx Capsules 1000mg 1 by mouth Unknown /0000 every day - 11/23 Combivent 0000 Hx Aerosol 20-100mcg 1unit 1 puffs 4-6 Unknown Respimat /0000 /Act s times daily - as needed 09/01 Gabapentin 00 Hx Tablets 600mg 60tab 1 tabs by [...] 1 tablet po Blegen, /0000 daily ( Lorelei, - isak GABRIEL 09/2307/31/17 Nitrofurantoin Hx Capsules 100mg 2 by mouth Unknown Monohyd Macro /0000 daily for 7 - days 09/15 Allergy Shots Hx once a Matilde Zolair? /0000 month Karen Green MD 09/15 Xolair Hx Solution 150mg 1 time per Unknown /0000 Rec month - 12/09 Medications Administered in Office Medication Date Status [...] 40 Millicuries Depomedrol Administered Injection Nguyễn 80MG Lakia Mattson M.D. Vital Signs Date Vital Result Comment 12/10/2017 Height 64 inches 5'4" Weight 277.00 lb Heart Rate 80 /min BP Systolic Sitting 118 mmHg BP Diastolic Sitting 60 mmHg Respiratory Rate 14 /min O2 % BldC Oximetry 95 % BMI (Body Mass Index) 47.5 kg/m2 12/03/2017 Height 64 inches 5'4" Weight 280.12 [...] Test Date Test Result H/L Range Note Sputum Culture & 12/04/2017 Sputum Culture SEE RESULT BELOW 1 Sensitiv Gram Stain Platelet Count 11/01/2017 Platelet Count 259 10^3/uL 150-450 Mean Platelet Volume 9.1 um3 7.4-10.4 Inr/Protime 11/01/2017 Inr 0.96 0.77-1.02 Laboratory test 11/01/2017 Partial Thrombo Time PTT 27.2 seconds 26.0- 36.3 finding Leukemia/Lymphoma Flow 10/31/2017 Path Interpretation 2-8 tnp Marker Path Interpret 9-15 Marker (SEE NOTE) 2 Path Interpret > 16 Marker tnp Laboratory test finding 10/31/2017 Cytology Non-Laser Beam Cutter SEE RESULT BELOW 3 Laboratory test finding 09/18/2017 Cytology Non-Laser Beam Cutter SEE RESULT BELOW 4 Comp Metabolic Panel 09/28/2016 Sodium 140 mmol/L [...] Egfr Non- 59.6 >60 Egfr 76.7 >60 5 CBC Auto Diff 09/28/2016 White Blood Count [...] finding 09/28/2016 Immunoglobulin E 262 kU/L <=214 6 Laboratory test finding 07/26/2016 Immunoglobulin E (Ige) 362 kU/L <=214 7 Anti Nuclear Antibody 0.3 U 8 CBC Auto Diff 07/26/2016 White Blood Count [...] 0-2 Nucleated Red Blood Cells % 0 1 SEE RESULT BELOW Name: KASSANDRA NAYLOR : [address]: Matilde Green MD Acct: [id number] Unit: [id number] AGE: 72 Location: [facility] Re12/04/17 SEX: F Status: REG REF SPEC: [id number] PAWEL: 12/04/[address]: Matilde Green MD REQ: [id number] RECD: 12/04/171177 STATUS: COMP _ SOURCE: SPUTUM,EXP SPDESC: ORDERED: Sputum Cult/GS Procedure Result Reported Site Sputum Smear Final 12/05/17- 1027 ML 2+ Epithelial Cells 3+ Neutrophils 3+ Gram Positive Cocci in Chains, resembling Strep 1+ Gram Positive Cocci in Clusters, resembling Staph 1+ Gram Negative Bacilli 2+ Gram Positive Diplococci Sputum Culture Final 12/06/17- 1107 ML Organism 1 NORMAL JANINA Quantity 2+ * ML - Main Lab . END OF REPORT DEPARTMENT OF PATHOLOGY, [address] [place] [address] Apolinar oLuis M.D. Director [facility] # [id number] 2 FINAL DIAGNOSIS: Specimen Source: Left parotid ([id number]) Flow cytometry immunophenotypic analysis: No evidence of [...] MD 11/04/17 0949 Technical component performed by: [address] [address] Machine Tool Builder: Federico Dow II, MD, PhD. 3 SEE RESULT BELOW Name: KASSANDRA NAYLOR : [address]: Ishmael AZEVEDO Acct: [id number] Unit: [id number] AGE: 72 Location: Re10/31/17 SEX: F Status: REG REF SPEC: [id number] PAWEL: 10/31/17-1025 [facility] DR: Ishmael AZEVEDO REQ: [id number] RECD: 10/31/17 STATUS: TERESSA MONTERO DR: Bruce Bruno MD _ ORDERED: FNA-IMG GUID BX, CY ADEQ-ADDL P, LEVEL 4, CYTO ADEQ-1ST P Flow cytometry has been performed at [place], [place]. The testing reveals: FINAL DIAGNOSIS: Specimen Source: Left parotid ([id number]) Flow cytometry immunophenotypic analysis:No evidence of an [...] Joe MD11/04/17 0949 Technical component performed by: [place] [address] Machine Tool Builder: Federico Dow II, MD, PhD. Addendum Signed (signature on file) Candi Joe MD 1706 FINAL DIAGNOSIS CONTINUED ON NEXT PAGE DEPARTMENT OF PATHOLOGY, [address] [place] [address] Apolinar Louis M.D. Director [facility] # [id number] RUN DATE: 11/05/17 [facility] LAB LIVE PAGE 2 Patient: KASSANDRA NAYLOR [id number] (Continued) FINAL DIAGNOSIS (Continued) Left parotid lymph [...] formalin for cell blockand Specimen sent to [facility] for Flow cytometry [place], [place] on 10/31/17. Signed by and Reported on: Candi Joe MD 11/04/17 1055 END OF REPORT DEPARTMENT OF PATHOLOGY, [address] [place] [address] Apolinar Louis M.D. Director [facility] # [id number] 4 SEE RESULT BELOW Name: KASSANDRA NAYLOR : [address]: Matilde Green MD Acct: [id number] Unit: [id number] AGE: 72 Location: [place] Re09/18/17 SEX: F Status: DEP SDC SPEC: [id number] PAWEL: 09/18/17-1410 [facility] DR: Matilde Green MD REQ: [id number] RECD: 09/18/17 STATUS: SOUT _ ORDERED: FNA-IMG GUID BX/3, [...] CONTINUED ON NEXT PAGE DEPARTMENT OF PATHOLOGY, [address] [place] [address], [place] [address] Apolinar Louis M.D. Director [facility] # [id number] RUN DATE: 09/20/17 [facility] LAB LIVE PAGE 2 Patient: KASSANDRA NAYLOR [id number] (Continued) FINAL DIAGNOSIS (Continued) Comment: Dr. Joe [...] 1210 END OF REPORT DEPARTMENT OF PATHOLOGY, [address] [place] [address] Apolinar Louis M.D. Director [facility] # [id number] 5 Because ethnic data is not always readily [...] 15-29 5 Kidney failure <15 (or dialysis) 6 Test Performed by: [address] [address] 7 Test Performed by: [address] [address] 8 REFERENCE VALUE <=1.0 (Negative) Test Performed by: [address] [address] Procedures Date CPT Code Description Status 10/21/2017 17107 Implantable Cardio System Loop Recorder Sys Remota Data Completed [facility] 10/21/2017 62438 Interrogation Dev Loop Recorder Incl Physician Completed Analysis,Rev,Repor 09/20/2017 56562 Implantable Cardio System Loop Recorder Sys Remota Data Completed [employer] 09/20/2017 62040 Interrogation Dev Loop Recorder Incl Physician Completed Analysis,Rev,Repor 09/18/2017 91147 Endobronchial Ultrasound=>3 Completed 08/20/2017 02219 Implantable Cardio System Loop Recorder Sys Remota Data Completed [employer] 08/20/2017 28521 Interrogation Dev Loop Recorder Incl Physician Completed Analysis,Rev,Repor 07/31/2017 45374 EKG Tracing & Interpretation Completed 07/20/2017 96131 Implantable Cardio System Loop Recorder Sys Remota Data Completed [employer]io 07/20/2017 17946 Interrogation Dev Loop Recorder Incl Physician Completed Analysis,Rev,Repor 06/19/2017 40661 Interrogation Dev Loop Recorder Incl Physician Completed Analysis,Rev,Repor 06/19/2017 09122 Implantable Cardio System Loop Recorder Sys Remota Data Completed Acquistio 05/19/2017 91129 Implantable Cardio System Loop Recorder Sys Remota Data Completed [employer] 05/19/2017 61275 Interrogation Dev Loop Recorder Incl Physician Completed Analysis,Rev,Repor 04/18/2017 30845 Implantable Cardio System Loop Recorder Sys Remota Data Completed Acquistio 04/18/2017 10801 Interrogation Dev Loop Recorder Incl Physician Completed Analysis,Rev,Repor 03/18/2017 59933 Implantable Cardio System Loop Recorder Sys Remota Data Completed Acquistio 03/18/2017 02416 Interrogation Dev Loop Recorder Incl Physician Completed Analysis,Rev,Repor 02/15/2017 33803 Implantable Cardio System Loop Recorder Sys Remota Data Completed Acquistio 02/15/2017 63750 Interrogation Dev Loop Recorder Incl Physician Completed Analysis,Rev,Repor 01/14/2017 62018 Implant Cardiac Loop Recorder Completed 12/21/2016 45552 EKG Tracing & Interpretation Completed 07/04/2016 72131 EKG Tracing & Interpretation Completed 04/18/2016 91260 EKG Tracing & Interpretation Completed 04/12/2016 57690 Inject/Drain Joint/Bursa Major W/O US Completed 12/21/2015 38732 Polysomnography Sleep Staging 4+ Parameters Completed 12/14/2015 89134 Diffusing Capacity Completed 12/14/2015 35508 Plethysmography Determination Lung Volumes & Per Airway Completed Resist 12/14/2015 92275 Pulmonary Function><Bronchodil Completed 11/25/2015 48227 EKG Tracing & Interpretation Completed 11/16/201587006 Inject/Drain Joint/Bursa Major W/O US Completed 11/03/2015 83382 ECHO Transthorasic Realtime 2D W Doppler & Color Flow Completed Hosp 07/29/201567745 Inject/Drain Joint/Bursa Major W/O US Completed 07/29/201549698 Inject/Drain Joint/Bursa Major W/O US Completed 04/27/201512943 Inject/Drain Joint/Bursa Major W/O US Completed 11/30/201489681 Inject/Drain Joint/Bursa Major W/O US Completed 07/01/2013 68917 Stress Test Completed 07/01/2013 84445 Myocardial Perfusion Imaging Tomographic (Spect) Completed Multiple Studies 12/13/2010 07158 Xray Knee 3 Views Completed 12/13/201041850 Inject/Drain Joint/Bursa Major W/O US Completed 12/05/2010 39924 Color Flow Doppler/Interp & Reprt Completed 12/05/2010 79330 Pulse Wave/Continuous-Interp.RPT Completed 12/05/2010 93938 ECHO Transthorasic Realtime 2D W Doppler & Color Flow Completed Hosp Encounters Type Date Location Provider CPT E/M Dx Office Visit 09/23/2017 [facility] Kasey Peralta, [address] G47.33 10:30a [facility] E66.09 J45.40 C34.90 Office Visit 09/16/2017 12:30p [facility] [place] [address] R59.0 [facility] Office Visit 09/02/2017 9:15a [facility] [place] [address] J45.41 [facility] G47.33 E66.09 Office Visit 07/31/2017 11:30a [facility] Abhishek Beck, [address] I48.0 Tung Limon Z95.818 Office Visit 05/28/2017 12:30p Pul[facility]ology [place] [address] J45.41 Services AT [facility] G47.33 E66.09 Office Visit 01/23/2017 10:15a [facility] [address] I48.0 Rn Or Lvn M.D. I10 Office Visit 12/21/2016 11:15a [facility] Abhishek JudeTravis Beck, [address]72 I48.0 Rn Or Lvn M.D. I10 R06.02 Office Visit 11/28/2016 11:00a [facility] [place] [address] G47.33 [facility] J45.40 J01.80 Office Visit 09/13/2016 1:30p [facility] [place] [address] J45.41 [facility] J30.9 G47.33 E66.01 Z68.42 Office Visit 07/26/2016 10:45a [facility] [place] [address] J45.41 [facility] G47.33 E66.01 Z68.42 Office Visit 07/23/2016 1:00p [facility] Sharpe [address]270 M75.31 Ahsan GABRIEL M19.011 M75.41 Office Visit 07/05/2016 10:45a [facility] [place] [address] J45.41 [facility] G47.33 E66.01 Office Visit 07/04/2016 10:30a [facility] Abhishek Beck, [address]658 I48.0 Tung M.D. J44.0 I10 Z01.810 M19.011 Office Visit 06/18/2016 2:45p [facility] 39247 M75.31 Ahsan GABRIEL M19.011 M75.41 Office Visit 04/30/2016 11:15a [facility] 24244 M75.31 Ahsan GABRIEL M75.41 M19.011 Office Visit 04/18/2016 11:00a [facility] Abhishek Beck 51586 I48.0 Rn Or Lvn M.D. R06.02 J44.0 I10 Office Visit 04/12/2016 10:30a [facility] Christian F [address] S46.011A Of Ahsan Sharpe MD M75.41 M19.011 Office Visit 02/21/2016 11:30a [facility] [place] [address] J45.909 Services Of Rn Or Lvn G47.33 Office Visit 01/04/2016 11:30a [facility] [place] [address] G47.33 Services Of Rn Or Lvn J45.909 Office Visit 11/25/2015 1:00p [facility] Abhishek Beck, 38966 I48.0 Rn Or Lvn M.DTravis J44.0 R94.31 Office Visit 11/23/2015 11:30a [facility] [place] [address] R06.02 Services Of Rn Or Lvn J45.909 G47.9 E66.01 Office Visit 11/03/2015 4:06p [facility] Vladimir Rodriguez, 16750 I48.91 Hospitalists Ashly I48.0 J44.0 E66.01 Office Visit 11/02/2015 7:[facility]a [facility] [address] I48.91 Assoc,pc JOLLY Hospitalists J44.0 I10 Office Visit 09/01/2015 4:00p [facility] Of Nguyễn Srinivasan, 73938 M76.32 C.M.A. MMarcin Office Visit 06/08/2015 10:40a [facility] Arcelia Wells, 91213 M17.0 C.M.A. ANP-C M76.32 M70.62 Office Visit 04/27/2015 10:40a [facility] Ar[facility]ia Wells, 07536 M17.0 C.M.A. ANP-C M76.32 M70.62 Office Visit 03/31/2015 11:20a [facility] Ar[place]ia Wells 23602 M17.0 C.M.A. ANP-C M76.32 Office Visit 01/04/2015 1:30p [facility] Arcelia Wells 39090 M70.62 C.M.A. ANP-C M23.8x2 M17.0 Office Visit 11/30/2014 1:30p [facility] Nguyễn Mattson, 34544 717.89 C.M.A. M.DTravis 715.96 Office Visit 07/14/2013 1:15p [facility] Abhishek Beck, 890[address] 794.31 [facility] M.DTravis 786.05 Office Visit 06/19/2013 2:00p [facility] Abhishek Beck, 57915 786.05 [facility] Parag.James 794.31 427.0 Office Visit 01/30/2011 8:45a [facility] Nguyễn Mattson, 06286 715.96 C.M.A. M.D. Office Visit 12/13/2010 1:15p [facility] Nguyễn Mattson, 78218 715.96 C.M.A. M.D. 836.0 Plan of Care Future Appointment(s):01/27/2018 10:45 am - Matilde Green MD at [facility]12/10/2017 - Matilde Green MDJ45.901 Unspecified asthma with (acute) exacerbationFollow up:1 oepmkD38.33 Obstructive sleep apnea (adult) (pediatric)E66.01 Morbid (severe) obesity due to excess calories
[2017-12-30] MEDS ORDERED: Magnesium Sulf 4 GM/100 ML IV* 4,000 MG/100 ML BAG IVPB ONE (17:00)
[2017-12-30 17:03] LABS: Urine Appearance Cloudy; Urine Blood 1+ (Negative); Urine Color Yellow; Urine Ketones Negative (Negative); Urine Protein 2+(100 mg/dL) (Negative); Urine Red Blood Cell Trace(0-2/hpf) (Absent); Urine Specific Gravity 1.014 (1.010-1.030); Urine Urobilinogen Negative (Negative); Urine White Blood Cell 1+(6-10/hpf) (Absent)
[2017-12-30] MEDS: NS 0.9% 1000 ML* 1,000 ML IV SCH (17:13)
[2017-12-30] MEDS: Montelukast Sodium TAB* 10 MG PO SCH (17:35)
[2017-12-30] MEDS: Cefepime 2 GM in Dextrose(*) 2 GM/50 ML BAG IV SCH (21:20)
[2017-12-30] MEDS: Omeprazole CAP* 20 MG PO SCH (21:20)
[2017-12-30] MEDS: Mometasone 220 MCG MDI INH SCH (21:33)
[2017-12-30] MEDS: Mometasone/Formoter 200/5 MDI INH SCH (21:34)
[2017-12-31] MEDS: NS 0.9% 1000 ML* 1,000 ML IV SCH ×3 (00:55→14:54)
[2017-12-31] MEDS: Cefepime 2 GM in Dextrose(*) 2 GM/50 ML BAG IV SCH ×3 (05:30→22:33)
[2017-12-31 06:01] LABS: ABS Basophils 0 10^3/ul (0-0.2); ABS Eosinophils 0 10^3/ul (0-0.6); ABS Lymphocytes 0.5 10^3/ul (1.0-4.8); ABS Monocytes 0.1 10^3/ul (0-0.8); ABS Neutrophils 0.1 10^3/ul (1.5-7.7); Eosinophil % 1.6 % (0-6); Hematocrit 20 % (35-47); Hemoglobin 6.8 g/dl (12.0-16.0); Lymphocyte % 65.1 % (25-47); Mean Corpuscular HGB Conc 34 g/dl (31-36); Mean Corpuscular Hemoglobin 33 pg (27-31); Mean Corpuscular Volume 96 fL (80-97); Mean Platelet Volume 8.1 um3 (7.4-10.4); Platelet Count 22 10^3/ul (150-450); Red Blood Count 2.06 10^6/ul (4.00-5.40); Red Cell Distribution Width 19 % (10.5-15); White Blood Count 0.8 10^3/ul (3.5-10.8)
[2017-12-31 06:16] LABS: EGFR Non-African American 73.9 (>60)
[2017-12-31 06:43] LABS: Nucleated Red Blood Cells % 0
[2017-12-31 06:52] LABS: ABS Nucleated RBC 0 10^3/ul
[2017-12-31] MEDS: Mometasone/Formoter 200/5 MDI INH SCH ×2 (07:50→20:00)
[2017-12-31] MEDS: Mometasone 220 MCG MDI INH SCH ×2 (07:50→20:57)
[2017-12-31] MEDS: Omeprazole CAP* 20 MG PO SCH (08:09)
[2017-12-31] MEDS: Diltiazem CD CAP* 180 MG PO SCH (08:09)
[2017-12-31] MEDS: Atorvastatin* 40 MG TAB PO SCH (08:09)
[2017-12-31] MEDS: Losartan TAB* 25 MG PO SCH (08:09)
[2017-12-31] MEDS: Cetirizine* 10 MG TAB PO SCH (08:09)
[2017-12-31] MEDS: Tiotropium CAP.INH* CAP.INH/18 MCG (USE ORDER SET !) INH SCH (12:30)
[2017-12-31] MEDS ORDERED: Spiriva Inhaler DEVICE* 1 EACH DEVICE INH ONE (12:30)
[2017-12-31] MEDS: Magic Mouth Was-BEN/MAAL/LIDO SWISH SPIT SCH ×2 (18:53→20:51)
[2017-12-31] MEDS: Montelukast Sodium TAB* 10 MG PO SCH (20:49)
[2018-01-01] MEDS: NS 0.9% 1000 ML* 1,000 ML IV SCH ×2 (00:30→23:18)
[2018-01-01] MEDS: Cefepime 2 GM in Dextrose(*) 2 GM/50 ML BAG IV SCH ×3 (06:01→23:21)
[2018-01-01 06:24] LABS: ABS Basophils 0 10^3/ul (0-0.2); ABS Eosinophils 0 10^3/ul (0-0.6); ABS Lymphocytes 0.5 10^3/ul (1.0-4.8); ABS Monocytes 0.2 10^3/ul (0-0.8); ABS Neutrophils 0.4 10^3/ul (1.5-7.7); ABS Nucleated RBC 0 10^3/ul; Eosinophil % 0.4 % (0-6); Hematocrit 20 % (35-47); Lymphocyte % 44.2 % (25-47); Mean Corpuscular HGB Conc 35 g/dl (31-36); Mean Corpuscular Hemoglobin 33 pg (27-31); Mean Corpuscular Volume 95 fL (80-97); Mean Platelet Volume 8.3 um3 (7.4-10.4); Nucleated Red Blood Cells % 0.5; Platelet Count 11 10^3/ul (150-450); Red Blood Count 2.13 10^6/ul (4.00-5.40); Red Cell Distribution Width 18 % (10.5-15); White Blood Count 1.2 10^3/ul (3.5-10.8)
[2018-01-01 06:35] LABS: EGFR Non-African American 76.2 (>60)
[2018-01-01] MEDS: Tiotropium CAP.INH* CAP.INH/18 MCG (USE ORDER SET !) INH SCH ×2 (07:38→13:20)
[2018-01-01] MEDS: Mometasone/Formoter 200/5 MDI INH SCH ×2 (07:39→19:31)
[2018-01-01] MEDS: Mometasone 220 MCG MDI INH SCH ×2 (08:28→19:32)
[2018-01-01] MEDS: Losartan TAB* 25 MG PO SCH (08:33)
[2018-01-01] MEDS: Cetirizine* 10 MG TAB PO SCH (08:33)
[2018-01-01] MEDS: Atorvastatin* 40 MG TAB PO SCH (08:33)
[2018-01-01] MEDS: Diltiazem CD CAP* 180 MG PO SCH (08:33)
[2018-01-01] MEDS: Omeprazole CAP* 20 MG PO SCH (08:33)
[2018-01-01] MEDS: Magic Mouth Was-BEN/MAAL/LIDO SWISH SPIT SCH ×4 (08:36→23:21)
--- NOTE | 2018-01-01 10:08 | RAD ---
HISTORY: Cough, fever w neutropenia on abx. COMPARISONS: December 30, 2017 VIEWS: 4: Frontal dual-energy and lateral views of the chest. FINDINGS: CARDIOMEDIASTINAL SILHOUETTE: The cardiac silhouette is enlarged. The cardiomediastinal silhouette is otherwise normal. ARNOL: The arnol are normal. PLEURA: The costophrenic angles are sharp. No pleural abnormalities are noted. LUNG PARENCHYMA: There is hyperinflation with flattening of the diaphragm and expansion of the AP diameter of the chest. There is faint alveolar opacification overlying the left midlung field on the frontal view. ABDOMEN: The upper abdomen is clear. There is no subphrenic gas. BONES AND SOFT TISSUES: No bone or soft tissue abnormalities are noted. OTHER: A right-sided chest port is noted from internal jugular approach with the tip overlying the right atrium. IMPRESSION: 1. FAINT AIRSPACE DISEASE OF THE LUNG THE LEFT MIDLUNG FIELD. RECOMMEND FOLLOW-UP UNTIL RESOLUTION TO EXCLUDE UNDERLYING PULMONARY PARENCHYMAL PATHOLOGY.. 2. CARDIOMEGALY. 3. COPD.
[2018-01-01] MEDS ORDERED: Vancomycin(*) 1,000 MG in NS 0.9% 250 ML* 250 ML IVPB ONE (11:27)
[2018-01-01] MEDS ORDERED: Magnesium Sulf 4 GM/100 ML IV* 4,000 MG/100 ML BAG IVPB ONE (11:27)
[2018-01-01] MEDS ORDERED: Vancomycin per Pharmacy* NOTE FOLLOW UP PRN (11:51)
[2018-01-01] MEDS ORDERED: Vancomycin(*) 2,000 MG in NS 0.9% 500 ML* 500 ML IVPB ONE (12:30)
[2018-01-01] MEDS: KCL 20 MEQ/100 ML IVPREMIX* 20 MEQ/100 ML BAG IV SCH ×2 (16:35→18:37)
[2018-01-01] MEDS: Montelukast Sodium TAB* 10 MG PO SCH (16:43)
[2018-01-02] MEDS: Vancomycin(*) 1,250 MG in NS 0.9% 250 ML* 250 ML IVPB SCH ×2 (04:09→16:12)
[2018-01-02] MEDS: Cefepime 2 GM in Dextrose(*) 2 GM/50 ML BAG IV SCH ×3 (06:07→21:10)
[2018-01-02 06:50] LABS: ABS Basophils 0 10^3/ul (0-0.2); ABS Eosinophils 0 10^3/ul (0-0.6); ABS Lymphocytes 0.6 10^3/ul (1.0-4.8); ABS Monocytes 0.4 10^3/ul (0-0.8); ABS Nucleated RBC 0 10^3/ul; Eosinophil % 0.4 % (0-6); Hematocrit 19 % (35-47); Hemoglobin 6.5 g/dl (12.0-16.0); Lymphocyte % 28.4 % (25-47); Mean Corpuscular HGB Conc 34 g/dl (31-36); Mean Corpuscular Hemoglobin 32 pg (27-31); Mean Corpuscular Volume 94 fL (80-97); Mean Platelet Volume 8.8 um3 (7.4-10.4); Nucleated Red Blood Cells % 0.8; Platelet Count 14 10^3/ul (150-450); Red Blood Count 2.03 10^6/ul (4.00-5.40); Red Cell Distribution Width 17 % (10.5-15)
[2018-01-02 07:14] LABS: EGFR Non-African American 93.2 (>60)
[2018-01-02] MEDS: Mometasone/Formoter 200/5 MDI INH SCH ×2 (07:48→19:40)
[2018-01-02] MEDS: Tiotropium CAP.INH* CAP.INH/18 MCG (USE ORDER SET !) INH SCH ×2 (07:48→14:55)
[2018-01-02] MEDS: Mometasone 220 MCG MDI INH SCH (07:59)
[2018-01-02] MEDS: Losartan TAB* 25 MG PO SCH (08:51)
[2018-01-02] MEDS: Cetirizine* 10 MG TAB PO SCH (08:51)
[2018-01-02] MEDS: Omeprazole CAP* 20 MG PO SCH (08:51)
[2018-01-02] MEDS: Atorvastatin* 40 MG TAB PO SCH (08:51)
[2018-01-02] MEDS: Diltiazem CD CAP* 180 MG PO SCH (08:52)
[2018-01-02] MEDS: Magic Mouth Was-BEN/MAAL/LIDO SWISH SPIT SCH ×4 (09:04→19:54)
--- NOTE | 2018-01-02 10:49 | PN ---
Progress Note - Progress Note Date of Service: 01/02/18 SOAP: Subjective: [Kassandra reports feeling slightly better today after being febrile for most of the day yesterday. She reports feeling more SOB with ambulation to the restroom today. Still has an occasional productive cough. No abd pain. She had a normal BM this am which was collected to test for occult blood. Reports that it did not appear black or grossly bloody.] Objective: [ Laboratory Results - last 24 hr 12/31/17 01/02/18 01/02/18 05:38 06:20 06:20 WBC 2.0 L RBC 2.03 L Hgb 6.5 L Hct 19 L MCV 94 MCH 32 H MCHC 34 RDW 17 H Plt Count 14 L MPV 8.8 Neut % (Auto) 50.5 Lymph % (Auto) 28.4 [place] % (Auto) 20.5 H Eos % (Auto) 0.4 Baso % (Auto) 0.2 Absolute Neuts (auto) 1.0 L Absolute Lymphs (auto) 0.6 L Absolute Monos (auto) 0.4 Absolute Eos (auto) 0 Absolute Basos (auto) 0 Absolute Nucleated RBC 0 Nucleated RBC % 0.8 Sodium 136 Potassium 3.4 L Chloride 104 Carbon Dioxide 24 Anion Gap 8 BUN 7 Creatinine 0.63 Est GFR ( Amer) 112.7 Est GFR (Non-Af Amer) 93.2 BUN/Creatinine Ratio 11.1 Glucose 95 Calcium 8.4 L Crossmatch See Detail Acetaminophen (Tylenol Tab*) 650 mg PO Q4H PRN PRN Reason: pain/fever Albuterol/Ipratropium (Duoneb (Albuterol 2.5 Mg/Ipratropium 0.5 Mg)) 1 neb INH Q4H PRN PRN Reason: SOB/WHEEZING Atorvastatin Calcium (Lipitor*) 40 mg PO QAM [facility] Last Admin: 01/02/18 08:51 Dose: 40 mg Cetirizine HCl (Zyrtec*) 10 mg PO QAM [facility] Last Admin: 01/02/18 08:51 Dose: 10 mg Diltiazem HCl (Cardizem Cd Cap*) 360 mg PO QAM [facility] Last Admin: 01/02/18 08:52 Dose: 360 mg Heparin Sodium (Porcine) (Heparin Flush Port (Ivad)) 5 ml FLUSH DAILY [facility]; Protocol Last Admin: 01/02/18 09:54 Dose: Not Given Cefepime HCl (Maxipime 2 Gm In Dextrose Duplex (*)) 2 gm in 50 mls @ 100 mls/ hr IV Q8HR [facility] Last Admin: 01/02/18 06:07 Dose: 100 mls/hr Vancomycin HCl 1,250 mg/ (Sodium Chloride) 250 mls @ 166.667 mls/hr IVPB Q12H [facility] Last Admin: 01/02/18 04:09 Dose: 166.667 mls/hr Losartan Potassium (Cozaar Tab*) 100 mg PO QAM [facility] Last Admin: 01/02/18 08:51 Dose: 100 mg Mometasone Furoate (Asmanex 220 Mcg Mdi *) 1 puff INH BID [facility]; Protocol Last Admin: 01/02/18 07:59 Dose: Not Given Mometasone Furoate/Formoterol Fumar (Dulera 200/5 Mdi*) 1 puff INH BID [facility]; Protocol Last Admin: 01/02/18 07:48 Dose: 1 puff Montelukast Sodium (Singulair Tab*) 10 mg PO QPM [facility] Last Admin: 01/01/18 16:43 Dose: 10 mg Multi-Ingredient Mouthwash/Gargle (Magic Mouth Was-Tito/Maal/Lido*) 5 ml SWISH SPIT QID [facility] Last Admin: 01/02/18 09:04 Dose: 5 ml Omeprazole (Prilosec Cap*) 20 mg PO DAILY@0730 [facility] Last Admin: 01/02/18 08:51 Dose: 20 mg Pharmacy Consult (Vancomycin Per Pharmacy*) 1 note FOLLOW UP . PRN PRN Reason: PER PROTOCOL Pharmacy Profile Note (Vancomycin Trough Check) 1 note FOLLOW UP ONCE ONE Stop: 01/03/18 15:31 Potassium Chloride (Klor-Con Liquid*) 20 meq PO TID [facility] Stop: 01/03/18 09:01 Tiotropium [place] (Spiriva Cap.Inh*) 1 cap INH DAILY@1230 [facility] Last Admin: 01/02/18 07:48 Dose: 1 cap Vital Signs: Temp Pulse Resp BP Pulse Ox 99.4 F 95 18 137/63 96 01/02/18 07:44 01/02/18 07:49 01/02/18 07:49 01/02/18 07:44 01/02/18 07:49 Exam: Gen: Pleasant 72 yo female who appears mildly ill but in NAD sitting up at bedside HEENT: MMM, no thrush CV: RRR, no m/r/g Resp: few wheezing and rhonchi, no crackles Abd: soft, nonTTP, but some mild L CVAT Ext: 1-2+ LE edema] Assessment: [This is a very pleasant 72 yo female with 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 Still febrile after 48h Cefepime, Vancomycin added yesterday (01/01/18).] Plan: [Neutropenic fever - likely source is PNA with a small infiltrate noted on CXR - urine cx also grew EColi, but only 50-75K colonies and sensitive to Cefepime - Vancomycin added 01/01/18 to cefepime, cont both - febrile all day yesterday, but afebrile so far this am - blood cultures are negative thus far Pancytopenia - improving - likely chemotherapy induced - anemia slightly out of proportion - nl iron studies, stool testing pend - transfuse an additional unit PRBCs today (2nd unit this admission) Dyspnea - likely due to PNA and anemia, but may also be slightly fluid overloaded - transfuse 1U PRBCs today, if still symptomatic or becomes hypoxic will lightly diuress SCLC - cont radiation (finished 01/08/18) Afib - rate controlled - anticoagulation held d/t thrombocytopenia Hypomagnesemia/hypokalemia - replete and monitor Dispo: continues to require inpatient level care, cont with daily RT ]
[2018-01-02] MEDS: Magnesium Sulfate 2 GM IV* 2 GM/50 ML BAG IVPB ONE ×2 (11:31→12:33)
[2018-01-02] MEDS: Potassium Chloride LIQUID* 20 MEQ PACKET PO SCH ×2 (15:42→19:54)
[2018-01-02] MEDS: Montelukast Sodium TAB* 10 MG PO SCH (17:42)
[2018-01-03] MEDS: Acetaminophen TAB* 325 MG PO PRN ×2 (02:19→20:36)
[2018-01-03] MEDS: Vancomycin(*) 1,250 MG in NS 0.9% 250 ML* 250 ML IVPB SCH ×2 (04:22→17:45)
[2018-01-03] MEDS: Cefepime 2 GM in Dextrose(*) 2 GM/50 ML BAG IV SCH ×3 (06:11→21:52)
[2018-01-03] MEDS: Omeprazole CAP* 20 MG PO SCH (07:19)
[2018-01-03] MEDS: Magic Mouth Was-BEN/MAAL/LIDO SWISH SPIT SCH ×4 (07:19→21:52)
[2018-01-03] MEDS: Potassium Chloride LIQUID* 20 MEQ PACKET PO SCH (07:36)
[2018-01-03] MEDS: Diltiazem CD CAP* 180 MG PO SCH (07:38)
[2018-01-03] MEDS: Atorvastatin* 40 MG TAB PO SCH (07:38)
[2018-01-03] MEDS: Losartan TAB* 25 MG PO SCH (07:38)
[2018-01-03] MEDS: Cetirizine* 10 MG TAB PO SCH (07:38)
[2018-01-03] MEDS: Mometasone/Formoter 200/5 MDI INH SCH ×2 (07:52→19:30)
[2018-01-03] MEDS: Tiotropium CAP.INH* CAP.INH/18 MCG (USE ORDER SET !) INH SCH ×2 (07:53→11:13)
[2018-01-03 09:22] LABS: Hematocrit 25 % (35-47); Hemoglobin 8.2 g/dl (12.0-16.0); Mean Corpuscular HGB Conc 33 g/dl (31-36); Mean Corpuscular Hemoglobin 32 pg (27-31); Mean Corpuscular Volume 99 fL (80-97); Mean Platelet Volume 9.5 um3 (7.4-10.4); Platelet Count 24 10^3/ul (150-450); Red Blood Count 2.54 10^6/ul (4.00-5.40); Red Cell Distribution Width 19 % (10.5-15); White Blood Count 2.5 10^3/ul (3.5-10.8)
[2018-01-03 09:30] LABS: EGFR Non-African American 94.9 (>60)
[2018-01-03 10:01] LABS: ABS Basophils 0 10^3/ul (0-0.2); ABS Neutrophils 1.9 10^3/ul (1.5-7.7); Monocytes % 6 % (0-7)
--- NOTE | 2018-01-03 10:51 | PN ---
Progress Note - Progress Note Date of Service: 01/03/18 SOAP: Subjective: [Reports feeling more SOB today. Coughing, but minimally productive. Tmax yest 100.6. Reports L wrist pain that started overnight. She thought maybe she bumped it, but no associated bruising. No bleeding. No abd pain.] Objective: [ Laboratory Results - last 24 hr 12/31/17 01/02/18 01/03/18 05:38 06:20 08:40 WBC 2.5 L RBC 2.54 L Hgb 8.2 L Hct 25 L MCV 99 H MCH 32 H MCHC 33 RDW 19 H Plt Count 24 L D MPV 9.5 Neut % (Auto) Not Reportable Lymph % (Auto) Not Reportable [place] % (Auto) Not Reportable Eos % (Auto) Not Reportable Baso % (Auto) Not Reportable Absolute Neuts (auto) Not Reportable Absolute Lymphs (auto) Not Reportable Absolute Monos (auto) Not Reportable Absolute Eos (auto) Not Reportable Absolute Basos (auto) Not Reportable Absolute Nucleated RBC Not Reportable Neutrophils % 75 Lymphocytes % 19 L Monocytes % 6 Eosinophils % 0 Basophils % 0 Nucleated RBC % Not Reportable Abs Neuts (Manual) 1.9 Abs Lymphs (Manual) 0.5 L Abs Monocytes (Manual) 0.2 Absolute Eos (Manual) 0 Abs Basophils (Manual) 0 Normal RBC Morphology Not Reportable Polychromasia 1+ Sodium Potassium Chloride Carbon Dioxide Anion Gap BUN Creatinine Est GFR ( Amer) Est GFR (Non-Af Amer) BUN/Creatinine Ratio Glucose Calcium Magnesium 1.6 L Total Bilirubin AST ALT Alkaline Phosphatase Total Protein Albumin Globulin Albumin/Globulin Ratio Blood Type O Negative Antibody Screen Negative Crossmatch See Detail 01/03/18 08:40 WBC RBC Hgb Hct MCV MCH MCHC RDW Plt Count MPV Neut % (Auto) Lymph % (Auto) [place] % (Auto) Eos % (Auto) Baso % (Auto) Absolute Neuts (auto) Absolute Lymphs (auto) Absolute Monos (auto) Absolute Eos (auto) Absolute Basos (auto) Absolute Nucleated RBC Neutrophils % Lymphocytes % Monocytes % Eosinophils % Basophils % Nucleated RBC % Abs Neuts (Manual) Abs Lymphs (Manual) Abs Monocytes (Manual) Absolute Eos (Manual) Abs Basophils (Manual) Normal RBC Morphology Polychromasia Sodium 137 Potassium 4.1 Chloride 107 Carbon Dioxide 22 Anion Gap 8 BUN 8 Creatinine 0.62 Est GFR ( Amer) 114.8 Est GFR (Non-Af Amer) 94.9 BUN/Creatinine Ratio 12.9 Glucose 109 H Calcium 8.7 Magnesium 1.6 L Total Bilirubin 0.60 AST 19 ALT 34 Alkaline Phosphatase 51 Total Protein 5.5 L Albumin 3.4 Globulin 2.1 Albumin/Globulin Ratio 1.6 Blood Type Antibody Screen Crossmatch Acetaminophen (Tylenol Tab*) 650 mg PO Q4H PRN PRN Reason: pain/fever Last Admin: 01/03/18 02:19 Dose: 650 mg Albuterol/Ipratropium (Duoneb (Albuterol 2.5 Mg/Ipratropium 0.5 Mg)) 1 neb INH Q4H PRN PRN Reason: SOB/WHEEZING Atorvastatin Calcium ([facility]*) [facility] [place] Last Admin: 01/03/18 07:38 Dose: 40 mg Cetirizine HCl (Zyrtec*) [facility] [place] Last Admin: 01/03/18 07:38 Dose: 10 mg Diltiazem HCl (Cardizem Cd Cap*) [facility] [place] Last Admin: 01/03/18 07:38 Dose: 360 mg Furosemide (Lasix Iv*) 40 mg IV DAILY [facility] Heparin Sodium (Porcine) (Heparin Flush Port (Ivad)) 5 ml FLUSH DAILY [facility]; Protocol Last Admin: 01/03/18 10:36 Dose: 5 ml Cefepime HCl (Maxipime 2 Gm In Dextrose Duplex (*)) 2 gm in 50 mls @ 100 mls/ hr IV Q8HR [facility] Last Admin: 01/03/18 06:11 Dose: 100 mls/hr Vancomycin HCl 1,250 mg/ (Sodium Chloride) 250 mls @ 166.667 mls/hr IVPB Q12H [facility] Last Admin: 01/03/18 04:22 Dose: 166.667 mls/hr Magnesium Sulfate (Magnesium Sulf 4 Gm/100 Ml Iv*) 4,000 mg in 100 mls @ 33.333 mls/hr IVPB ONCE ONE Stop: 01/03/18 13:59 Losartan Potassium (Cozaar Tab*) [facility] [place] Last Admin: 01/03/18 07:38 Dose: 100 mg Methylprednisolone Sodium Succinate (Solu-Medrol 40 Mg) 40 mg IV ONCE ONE Stop: 01/03/18 11:01 Mometasone Furoate/Formoterol Fumar (Dulera 200/5 Mdi*) 1 puff INH BID [facility]; Protocol Last Admin: 01/03/18 07:52 Dose: 1 puff Montelukast Sodium (Singulair Tab*) 10 mg PO QPM [facility] Last Admin: 01/02/18 17:42 Dose: 10 mg Multi-Ingredient Mouthwash/Gargle (Magic Mouth Was-Tito/Maal/Lido*) 5 ml SWISH SPIT QID [facility] Last Admin: 01/03/18 07:19 Dose: 5 ml Omeprazole (Prilosec Cap*) 20 mg PO DAILY@0730 [facility] Last Admin: 01/03/18 07:19 Dose: 20 mg Pharmacy Consult (Vancomycin Per Pharmacy*) 1 note FOLLOW UP . PRN PRN Reason: PER PROTOCOL Pharmacy Profile Note (Vancomycin Trough Check) 1 note FOLLOW UP ONCE ONE Stop: 01/03/18 15:31 Prednisone (Deltasone Tab*) 20 mg PO DAILY [facility] Tiotropium [place] (Spiriva Cap.Inh*) 1 cap INH DAILY@1230 [facility] Last Admin: 01/03/18 07:53 Dose: 1 cap Vital Signs: Temp Pulse Resp BP Pulse Ox 98.1 F 88 22 144/49 93 01/03/18 07:29 01/03/18 07:56 01/03/18 07:56 01/03/18 07:29 01/03/18 07:56 Exam: Gen: Pleasant 72 yo female who appears mildly ill but in NAD sitting up at bedside HEENT: MMM, no thrush CV: RRR, no m/r/g Resp: few wheezing and rhonchi, no crackles. 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 Still febrile after 48h Cefepime, Vancomycin added 01/01/18 and febrile ~40 hours after Vanco added. Blood cultures still negative. Plan: [Neutropenic fever - likely source is PNA with a small infiltrate noted on CXR - urine cx also grew EColi, but only 50-75K colonies and sensitive to Cefepime - Vancomycin added 01/01/18 to cefepime, cont both - febrile again overnight ~40 hours after Vancomycin had been added - ANC now improved - requested ID consultation - initial and repeat blood cultures are negative from her port and periphery Pancytopenia - improving - likely chemotherapy induced - anemia slightly out of proportion - nl iron studies, stool testing also neg for blood - she has been transfused 2U PRBCs Dyspnea - appears slightly fluid overloaded and does have significant wheeze on exam - start Lasix and corticosteriods Wrist pain - appears benign - just focal TTP over distal ulna, no signs of septic joint SCLC - cont radiation (finished 01/08/18) COPD - on chronic prednisone (10 mg) prescribed by Dr Green - wheeze on exam with increased dyspnea - give 1 dose Solumedrol today followed by oral prednisone starting tomorrow Afib - rate controlled - anticoagulation held d/t thrombocytopenia Hypomagnesemia/hypokalemia - replete and monitor Dispo: continues to require inpatient level care, cont with daily RT]
[2018-01-03] MEDS ORDERED: Magnesium Sulf 4 GM/100 ML IV* 4,000 MG/100 ML BAG IVPB ONE (11:00)
[2018-01-03] MEDS ORDERED: methylPREDNISolone SOD 40 MG* 1 ML VIAL IV ONE (11:00)
[2018-01-03] MEDS: Furosemide IV* 10 MG/ML VIAL (40 MG) IV SCH (11:27)
--- NOTE | 2018-01-03 13:20 | CONS ---
CONSULTATION REPORT: DATE OF CONSULT: 01/03/18 REQUESTING PHYSICIAN: JOLLY Sarkar. CONSULTING SERVICE: Infectious disease. REASON FOR CONSULT: Neutropenic fever. IMPRESSION: 1. Neutropenic fever. The fever is slowly subsiding. T-max last night was 37.8. Her ANC was 1900. Blood cultures are negative. A urine culture on the 12/30/17 grew E. coli. She has had no focal s igns or symptoms to suggest a source of infection. 2. Small cell lung cancer, undergoing radiation and chemotherapy concurrently. 3. Right chest port. PLAN/RECOMMENDATIONS: Given no focus of infection and no positive cultures, I suspect her fever will continue to improve as her white count slowly resolves. The only focal finding is the slight abnorm ality of the left lung on chest x-ray, which may be related to her initial diagnosis. I think it campbell l be reasonable to continue her IV antibiotics for another 24 hours and then in a step-hinojosa fashion w ould stop the vancomycin followed by the cefepime as long as she is continuing to improve. If she is worsening instead of getting better, I think the next step would be CT of chest for invasive fungal i nfection which at this point does seem less likely. HISTORY OF PRESENT ILLNESS: This is a 72-year-old receiving chemotherapy and radiation who developed fever, malaise, decreased appetite on 12/28/17. She started to get a cough with yellow sputum, she had some chills and so was seen by oncology team. She was admitted for neutropenic fever, found to h ave an ANC of 100. She was started on cefepime for the first two days followed by the addition of va ncomycin as her fever continued. Her T-max was 38.4 on 01/01/18, 38.1 yesterday afternoon. No fever overnight. Her energy is still decreased. Her cough is better. She feels short of breath getting to the bathroom but not at rest. She has no abdominal pain or diarrhea and no pain. PAST MEDICAL HISTORY: 1. Small cell lung cancer, treated with chemotherapy and radiation. 2. Right chest port. 3. Obesity. 4. COPD. 5. Atrial fibrillation. 6. Hyperlipidemia. 7. Hypertension. 8. Nephrolithiasis. 9. Osteoarthritis. 10. Sleep apnea. 11. Status post bilateral carpal tunnel repair. 12. Bilateral cataract repair. 13. Status post hemorrhoidectomy. MEDICATIONS: 1. Tylenol. 2. Lipitor. 3. Cefepime 2 mg IV every 8 hours. 4. Cetirizine. 5. Losartan. 6. Methylprednisolone one dose today. 7. Omeprazole. 8. Prednisone 20 mg a day to start tomorrow. 9. Spiriva. 10. Vancomycin 1250 mg every 12 hours. ALLERGIES: CLINDAMYCIN, CODEINE, LEVOFLOXACIN. FAMILY HISTORY: No recurrent infections. SOCIAL HISTORY: She lives in [place] with her . They have a pet dog. She has no travel , no sick contacts. REVIEW OF SYSTEMS: All negative except as noted above in the history of present illness. PHYSICAL EXAM: Vital Signs: Temperature 36.7, heart rate 90, respiratory rate 20, blood pressure 14 5/50, oxygen saturation 93% on room air. In general, she is awake not in distress. Neurologic: She is oriented x3. Follows all commands. HEENT: There is no conjunctival hemorrhage. Oropharynx with out lesions. There is thrush. Neck is supple without mass. Heart is regular rate and rhythm without murmurs, rubs, or gallops. Lungs: Coarse breath sounds at the bases bilaterally without wheeze or rales. Abdomen is soft, nontender, nondistended. There are bowel sounds present. Chest: There is a right chest port without swelling, erythema or tenderness. Skin: There is no rash or splinter hem orrhages. Musculoskeletal: There is no spine tenderness to palpation. DIAGNOSTIC STUDIES/LAB DATA: White blood cell count 2.5, hemoglobin 8, platelets 2400, ANC 1900, cre atinine is 0.6. Urinalysis showed blood, nitrites, leukocyte esterase. Please see impressions and recommendations outlined above. Thanks for asking me to see Ms. Giraldo in consultation. [id number]/[facility] #: [id number]
[2018-01-03] MEDS ORDERED: Vancomycin Trough Check NOTE FOLLOW UP ONE (15:30)
[2018-01-03] MEDS: Montelukast Sodium TAB* 10 MG PO SCH (17:45)
[2018-01-04] MEDS: Vancomycin(*) 1,250 MG in NS 0.9% 250 ML* 250 ML IVPB SCH (03:48)
[2018-01-04] MEDS: Cefepime 2 GM in Dextrose(*) 2 GM/50 ML BAG IV SCH ×3 (06:00→21:28)
[2018-01-04 06:04] LABS: Hematocrit 23 % (35-47); Mean Corpuscular HGB Conc 35 g/dl (31-36); Mean Corpuscular Hemoglobin 32 pg (27-31); Mean Corpuscular Volume 92 fL (80-97); Mean Platelet Volume 9.8 um3 (7.4-10.4); Platelet Count 34 10^3/ul (150-450); Red Blood Count 2.47 10^6/ul (4.00-5.40); Red Cell Distribution Width 18 % (10.5-15); White Blood Count 4.6 10^3/ul (3.5-10.8)
[2018-01-04 06:18] LABS: EGFR Non-African American 94.9 (>60)
[2018-01-04 06:24] LABS: ABS Basophils 0 10^3/ul (0-0.2); ABS Eosinophils 0 10^3/ul (0-0.6); ABS Lymphocytes 0.2 10^3/ul (1.0-4.8); ABS Monocytes 0.4 10^3/ul (0-0.8); ABS Neutrophils 3.9 10^3/ul (1.5-7.7); ABS Nucleated RBC 0 10^3/ul
[2018-01-04 06:28] LABS: ABS Basophils 0 10^3/ul (0-0.2); ABS Neutrophils 3.9 10^3/ul (1.5-7.7); Monocytes % 4 % (0-7)
[2018-01-04] MEDS: Tiotropium CAP.INH* CAP.INH/18 MCG (USE ORDER SET !) INH SCH ×2 (07:18→14:14)
[2018-01-04] MEDS: Mometasone/Formoter 200/5 MDI INH SCH ×2 (07:18→19:03)
[2018-01-04] MEDS: Magic Mouth Was-BEN/MAAL/LIDO SWISH SPIT SCH ×4 (08:51→21:27)
[2018-01-04] MEDS: Cetirizine* 10 MG TAB PO SCH (08:52)
[2018-01-04] MEDS: Diltiazem CD CAP* 180 MG PO SCH (08:52)
[2018-01-04] MEDS: Losartan TAB* 25 MG PO SCH (08:52)
[2018-01-04] MEDS: Atorvastatin* 40 MG TAB PO SCH (08:52)
[2018-01-04] MEDS: Furosemide IV* 10 MG/ML VIAL (40 MG) IV SCH (08:53)
[2018-01-04] MEDS: predniSONE TAB* 20 MG PO SCH (08:53)
[2018-01-04] MEDS: Omeprazole CAP* 20 MG PO SCH (08:53)
--- NOTE | 2018-01-04 09:10 | PN ---
Progress Note - Progress Note Date of Service: 01/04/18 SOAP: Subjective: []Feeling better. No fevers, night sweat last night. Breathing is better then yesterday but not what she would like. Better than two weeks ago. Edema less. Having bowl movements. Acetaminophen (Tylenol Tab*) 650 mg PO Q4H PRN PRN Reason: pain/fever Last Admin: 01/03/18 20:36 Dose: 650 mg Albuterol/Ipratropium (Duoneb (Albuterol 2.5 Mg/Ipratropium 0.5 Mg)) 1 neb INH Q4H PRN PRN Reason: SOB/WHEEZING Atorvastatin Calcium (Lipitor*) 40 mg PO QAM [facility] Last Admin: 01/04/18 08:52 Dose: 40 mg Cetirizine HCl (Zyrtec*) 10 mg PO QAM [facility] Last Admin: 01/04/18 08:52 Dose: 10 mg Diltiazem HCl (Cardizem Cd Cap*) 360 mg PO QAM [facility] Last Admin: 01/04/18 08:52 Dose: 360 mg Furosemide (Lasix Iv*) 40 mg IV DAILY [facility] Last Admin: 01/04/18 08:53 Dose: 40 mg Heparin Sodium (Porcine) (Heparin Flush Port (Ivad)) 5 ml FLUSH DAILY [facility]; Protocol Last Admin: 01/04/18 08:53 Dose: 5 ml Cefepime HCl (Maxipime 2 Gm In Dextrose Duplex (*)) 2 gm in 50 mls @ 100 mls/ hr IV Q8HR [facility] Last Admin: 01/04/18 06:00 Dose: 100 mls/hr Vancomycin HCl 1,500 mg/ (Sodium Chloride) 250 mls @ 166.667 mls/hr IVPB Q12HR@ 0100,1300 [facility] Losartan Potassium (Cozaar Tab*) 100 mg PO QAM [facility] Last Admin: 01/04/18 08:52 Dose: 100 mg Mometasone Furoate/Formoterol Fumar (Dulera 200/5 Mdi*) 1 puff INH BID [facility]; Protocol Last Admin: 01/04/18 07:18 Dose: 1 puff Montelukast Sodium (Singulair Tab*) 10 mg PO QPM [facility] Last Admin: 01/03/18 17:45 Dose: 10 mg Multi-Ingredient Mouthwash/Gargle (Magic Mouth Was-Tito/Maal/Lido*) 5 ml SWISH SPIT QID [facility] Last Admin: 01/04/18 08:51 Dose: 5 ml Omeprazole (Prilosec Cap*) 20 mg PO DAILY@0730 [facility] Last Admin: 01/04/18 08:53 Dose: 20 mg Pharmacy Consult (Vancomycin Per Pharmacy*) 1 note FOLLOW UP . PRN PRN Reason: PER PROTOCOL Pharmacy Profile Note (Vancomycin Trough Check) 1 note FOLLOW UP ONCE ONE Stop: 01/06/18 12:31 Prednisone (Deltasone Tab*) 20 mg PO DAILY [facility] Last Admin: 01/04/18 08:53 Dose: 20 mg Tiotropium [place] (Spiriva Cap.Inh*) 1 cap INH DAILY@1230 [facility] Last Admin: 01/04/18 07:18 Dose: 1 cap Objective: [] Vital Signs Temp Pulse Resp BP Pulse Ox 97.3 F 94 18 136/62 97 01/04/18 07:27 01/04/18 07:27 01/04/18 07:27 01/04/18 07:27 01/04/18 07:27 Exam: Gen: Pleasant 72 yo female who appears mildly ill but in NAD sitting up at bedside HEENT: MMM, no thrush CV: RRR, no m/r/g Resp: no wheezing, CTA Abd: soft, NT, exam while sitting. 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 Now with increasing WBC on Cefepime, Vancomycin added 01/01/18. A-fibrile over past 24 hrs. Blood cultures remain negative. Plan: [1. Neutropenic fever. Possible PNA. - Stop Vancomycin - CXR tomorrow and if remains a-fibrile will stop Cefepime on Saturday and discharge 2. Pancytopenia. No additional transfusions though anemia is contributing to SOB. 3. Dyspnea, better. - Change Lasix to 40 mg po daily - Continue Prednisone at 20 mg - Continue inhalers. 3. SCLC - cont radiation (finished 01/08/18) 4. Afib - rate controlled - anticoagulation held d/t thrombocytopenia re-start once plts > 49,000 5. Hypomagnesemia/hypokalemia. Replete today, check tomorrow. 6. Disp, possibly home Saturday after XRT
[2018-01-04] MEDS ORDERED: Vancomycin(*) 1,500 MG in NS 0.9% 250 ML* 250 ML IVPB SCH (13:00)
[2018-01-04] MEDS: Montelukast Sodium TAB* 10 MG PO SCH (17:29)
[2018-01-05] MEDS: Cefepime 2 GM in Dextrose(*) 2 GM/50 ML BAG IV SCH (06:01)
[2018-01-05 06:22] LABS: ABS Neutrophils 4.4 10^3/ul (1.5-7.7); Hematocrit 22 % (35-47); Hemoglobin 7.6 g/dl (12.0-16.0); Mean Corpuscular HGB Conc 35 g/dl (31-36); Mean Corpuscular Hemoglobin 33 pg (27-31); Mean Corpuscular Volume 94 fL (80-97); Mean Platelet Volume 10.5 um3 (7.4-10.4); Platelet Count 49 10^3/ul (150-450); Red Cell Distribution Width 18 % (10.5-15); White Blood Count 5.9 10^3/ul (3.5-10.8)
[2018-01-05 06:59] LABS: ABS Basophils 0 10^3/ul (0-0.2); ABS Eosinophils 0 10^3/ul (0-0.6); ABS Lymphocytes 0.8 10^3/ul (1.0-4.8); ABS Monocytes 0.7 10^3/ul (0-0.8); ABS Nucleated RBC 0.2 10^3/ul; Eosinophil % 0.1 % (0-6); Lymphocyte % 13.7 % (25-47); Nucleated Red Blood Cells % 2.8
[2018-01-05 07:02] LABS: EGFR Non-African American 81.2 (>60)
[2018-01-05] MEDS: Tiotropium CAP.INH* CAP.INH/18 MCG (USE ORDER SET !) INH SCH ×2 (07:12→11:08)
[2018-01-05] MEDS: Mometasone/Formoter 200/5 MDI INH SCH ×2 (07:12→19:32)
[2018-01-05] MEDS: Losartan TAB* 25 MG PO SCH (08:29)
[2018-01-05] MEDS: Magic Mouth Was-BEN/MAAL/LIDO SWISH SPIT SCH ×4 (08:29→21:13)
[2018-01-05] MEDS: Furosemide TAB* 40 MG PO SCH (08:30)
[2018-01-05] MEDS: Diltiazem CD CAP* 180 MG PO SCH (08:30)
[2018-01-05] MEDS: Cetirizine* 10 MG TAB PO SCH (08:30)
[2018-01-05] MEDS: predniSONE TAB* 20 MG PO SCH (08:30)
[2018-01-05] MEDS: Omeprazole CAP* 20 MG PO SCH (08:30)
[2018-01-05] MEDS: Atorvastatin* 40 MG TAB PO SCH (08:30)
--- NOTE | 2018-01-05 09:41 | PN ---
Progress Note - Progress Note Date of Service: 01/05/18 SOAP: Subjective: []Better today. Some increased swelling in ankles. Overall better. Eating well Active Medications Generic Name Dose Route Start Last Admin Trade Name Freq PRN Reason Stop Dose Admin Acetaminophen 650 mg 01/02/18 08:22 01/03/18 20:36 Tylenol Tab* PO 650 mg Q4H PRN Administration pain/fever Albuterol/Ipratropium 1 neb 12/30/17 15:12 Duoneb (Albuterol 2.5 Mg/Ipratropium 0.5 Mg) INH Q4H PRN SOB/WHEEZING Atorvastatin Calcium 40 mg 12/31/17 09:00 01/05/18 08:30 Lipitor* PO 40 mg QAM [facility] Administration Cetirizine HCl 10 mg 12/31/17 09:00 01/05/18 08:30 Zyrtec* PO 10 mg QAM [facility] Administration Diltiazem HCl 360 mg 12/31/17 09:00 01/05/18 08:30 Cardizem Cd Cap* PO 360 mg QAM [facility] Administration Furosemide 40 mg 01/05/18 09:00 01/05/18 08:30 Lasix Tab* PO 40 mg DAILY [facility] Administration Heparin Sodium (Porcine) 5 ml 12/31/17 09:00 01/05/18 06:45 Heparin Flush Port (Ivad) FLUSH 5 ml DAILY [facility] Administration Protocol Cefepime HCl 2 gm in 50 mls @ 100 mls/hr 12/30/17 22:00 01/05/18 06:01 Maxipime 2 Gm In Dextrose Duplex (*) IV 100 mls/hr Q8HR [facility] Administration Losartan Potassium 100 mg 12/31/17 09:00 01/05/18 08:29 Cozaar Tab* PO 100 mg QAM [facility] Administration Mometasone Furoate/Formoterol Fumar 1 puff 12/30/17 21:00 01/05/18 07:12 Dulera 200/5 Mdi* INH 1 puff BID [facility] Administration Protocol Montelukast Sodium 10 mg 12/30/17 18:00 01/04/18 17:29 Singulair Tab* PO 10 mg QPM [facility] Administration Multi-Ingredient Mouthwash/Gargle 5 ml 12/31/17 17:00 01/05/18 08:29 Magic Mouth Was-Tito/Maal/Lido* SWISH SPIT 5 ml QID [facility] Administration Omeprazole 20 mg 12/30/17 21:00 01/05/18 08:30 Prilosec Cap* PO 20 mg DAILY@0730 [facility] Administration Prednisone 20 mg 01/04/18 09:00 01/05/18 08:30 Deltasone Tab* PO 20 mg DAILY [facility] Administration Tiotropium [place] 1 cap 12/31/17 12:30 01/05/18 07:12 Spiriva Cap.Inh* INH 1 cap DAILY@1230 [facility] Administration Objective: [] Vital Signs Temp Pulse Resp BP Pulse Ox 97.7 F 78 14 113/55 98 01/05/18 07:10 01/05/18 07:15 01/05/18 07:15 01/05/18 07:10 01/05/18 07:15 Exam: Gen: Pleasant 72 yo female who appears mildly ill but in NAD sitting up at bedside HEENT: MMM, no thrush CV: RRR, no m/r/g Resp: no wheezing, CTA Abd: soft, NT, exam while sitting. 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 Now with increasing WBC on Cefepime, Vancomycin added 01/01/18. A-fibrile over past 24 hrs. Blood cultures remain negative. Plan: [1. Neutropenic fever. Possible PNA. - Stop Cefepime - CXR today 2. Pancytopenia. Improving but for anemia, 1 U PRBC and check Iron B12 3. Dyspnea, better. - Lasix to 40 mg po daily - Continue Prednisone at 20 mg - Continue inhalers. 3. SCLC - XRT tomorrow prior to d/c 4. Afib - rate controlled - anticoagulation held d/t thrombocytopenia re-start once plts > 49,000, tomorrow 5. Hypomagnesemia/hypokalemia. Mg 3 G today. 6. Disp, possibly home Saturday after XRT
[2018-01-05] MEDS ORDERED: Magnesium Sulfate IV* 3 GM in NS 0.9% 100 ML* 100 ML IVPB ONE (10:00)
--- NOTE | 2018-01-05 11:08 | RAD ---
Indication: Shortness of breath, cough. Comparison is made with previous exam dated January 01, 2018. 2 views the chest are reviewed. Cardiomegaly is noted. Lung rapp appear hyperinflated. Chronic pleural changes are noted. Left midlung zone opacity appears to be slightly improved since previous exam. Chronic pleural changes are noted. IMPRESSION: Cardiomegaly with chronic pleural changes. Left basilar opacity appears to be slightly improved when compared to previous exam of January 01, 2018.
[2018-01-05] MEDS: Montelukast Sodium TAB* 10 MG PO SCH (17:12)
[2018-01-06 07:45] LABS: ABS Basophils 0 10^3/ul (0-0.2); ABS Eosinophils 0 10^3/ul (0-0.6); ABS Lymphocytes 1.2 10^3/ul (1.0-4.8); ABS Monocytes 0.8 10^3/ul (0-0.8); ABS Neutrophils 4.2 10^3/ul (1.5-7.7); ABS Nucleated RBC 0.2 10^3/ul; Eosinophil % 0.1 % (0-6); Hematocrit 24 % (35-47); Hemoglobin 8.1 g/dl (12.0-16.0); Lymphocyte % 19.8 % (25-47); Mean Corpuscular HGB Conc 35 g/dl (31-36); Mean Corpuscular Hemoglobin 32 pg (27-31); Mean Corpuscular Volume 94 fL (80-97); Mean Platelet Volume 9.3 um3 (7.4-10.4); Nucleated Red Blood Cells % 3.6; Platelet Count 73 10^3/ul (150-450); Red Blood Count 2.52 10^6/ul (4.00-5.40); Red Cell Distribution Width 17 % (10.5-15); White Blood Count 6.3 10^3/ul (3.5-10.8)
[2018-01-06] MEDS ORDERED: Tiotropium CAP.INH* CAP.INH/18 MCG (USE ORDER SET !) INH ONE (07:45)
[2018-01-06 07:53] LABS: EGFR Non-African American 68.7 (>60)
[2018-01-06] MEDS: Mometasone/Formoter 200/5 MDI INH SCH (07:57)
[2018-01-06] MEDS: Omeprazole CAP* 20 MG PO SCH (08:05)
[2018-01-06] MEDS: predniSONE TAB* 20 MG PO SCH (08:06)
[2018-01-06] MEDS: Furosemide TAB* 40 MG PO SCH (08:06)
[2018-01-06] MEDS: Atorvastatin* 40 MG TAB PO SCH (08:06)
[2018-01-06] MEDS: Cetirizine* 10 MG TAB PO SCH (08:06)
[2018-01-06] MEDS: Diltiazem CD CAP* 180 MG PO SCH (08:07)
[2018-01-06] MEDS: Magic Mouth Was-BEN/MAAL/LIDO SWISH SPIT SCH ×2 (08:07→12:20)
[2018-01-06] MEDS: Losartan TAB* 25 MG PO SCH (08:07)
[2018-01-06] MEDS ORDERED: Magnesium Sulf 4 GM/100 ML IV* 4,000 MG/100 ML BAG IVPB ONE (10:00)
--- NOTE | 2018-01-06 10:06 | DS ---
- Discharge Summary Admission Date: 12/30/2017 Discharge Date: 01/06/2018 Discharge Diagnosis: 1. Neutropenic Fever 2/2 PNA: resolved 2. Panctyopenia 2/2 Chemotherapy: ANC normalized, anemia stable to improved, platelets recovering 3. COPD: dyspnea improved with increased steroid, will taper later this week 4. A.Fib: rate generally controlled, resume Xeralto today 5. SCLC: continue RT to complete this week and will start C4 Cis/Etoposide this week as long as counts fully recovered Discharge Medications: Medication Instructions Recorded Confirmed Type Atorvastatin* [Lipitor 40 MG*] 40 mg PO QAM 11/09/14 12/30/17 History Losartan TAB* [Cozaar TAB*] 100 mg PO QAM 11/09/14 12/30/17 History Montelukast Sodium TAB* [Singulair 10 mg PO QPM 11/09/14 12/30/17 History 10 MG TAB*] EPINEPHrine [Epipen 2-Osmin] 0.3 mg IM ONCE PRN 11/02/15 12/30/17 History Albuterol Sulfate 0.63 mg IN Q6H PRN 01/11/17 12/30/17 History Levocetirizine Dihydrochloride 5 mg PO QAM 01/11/17 12/30/17 History Mometasone 220 MCG MDI * [Asmanex 1 puff INH BID 01/11/17 12/30/17 History 220 MCG MDI *] Albuterol HFA INHALER* [Ventolin 1 - 2 puff INH Q4H PRN 09/17/17 12/30/17 History HFA Inhaler*] Budesonide/Formote 160/4.5(NF) 1 puff INH BID 09/17/17 12/30/17 History [Symbicort 160/4.5 (NF)] Cholecalciferol TAB* [Vitamin D 1,000 unit PO QAM 09/17/17 12/30/17 History TAB*] Rivaroxaban TAB(*) [Xarelto 20 mg] 20 mg PO QPM 09/17/17 12/30/17 History Tiotropium CAP.INH* [Spiriva 1 cap.inh INH 1230 09/17/17 12/30/17 History CAP.INH*] dilTIAZem 360 MG 24HR ER (NF) 360 mg PO QAM 09/17/17 12/30/17 History [Diltiazem 360 mg 24Hr ER] Acetaminophen TAB* [Tylenol TAB*] 650 mg PO Q4H PRN tab 01/06/18 Rx Furosemide TAB* [Lasix TAB*] 40 mg PO DAILY tab 01/06/18 Rx Magnesium Oxide TAB* [MagOx 400 400 mg PO TID #90 tab 01/06/18 Rx TAB*] Omeprazole CAP* [Prilosec CAP* 20 20 mg PO DAILY@0730 #30 cap.dr 01/06/18 Rx MG] Potassium Chlor TAB* [Potassium 20 meq PO DAILY #30 tab.er 01/06/18 Rx Chlor TAB 20 MEQ*] predniSONE TAB* [Deltasone 20 MG 20 mg PO DAILY #30 tab 01/06/18 Rx TAB*] Hospital Summary: Please see admission note for full H&P, however briefly, Mrs. 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 She presented to our office on 01/09/2018 with fevers for >24 hours and was found to be neutropenic with presumed PNA on clinical exam (though chest X-ray was clear). She was started on Cefepime in the office due to SIRS with tachycardia , fever, and elevated lactic acid. She was admitted after being lindsay-cultured with telemetry monitoring. On admission her anti-cogulation (for A.Fib) was held due to thrombocytopenia (felt 2/2 chemotherapy). She remained febrile for over 24 hours and Vancomycin was added on 01/01/2018. A repeat Chest x-ray revealed a small area of airspace disease in the left mid-lung. At that time cultures were negative beyond urine revealing 50-75K C.Coli, sensitive to Cefepime. She had recurrent fevers on 01/02/[address] Olson of infectious disease was consulted on 01/03/2018. Recommendation at that time was for continued dual IV antibiotics as long as she continued to improve and then a step-hinojosa approach to discontinuing antibiotics. On 01/03/2018 Mrs. Giraldo complained of increased dyspnea and due to known underlying COPD and cardiomegaly on Chest x-ray she was started on Lasix and her prednisone was increased. By 01/04/2018 her neutrophils had improved and the Vancomycin was discontinued. Yesterday she remained afebrile and the Cefepime was discontinued , a repeat chest x-ray showed continued improvement of the left lung. During her admission Mrs. Giraldo received three units PRBCs, however yesterday she did experience flushing at the completion of her transfusion (though felt NOT to be a true transfusion reaction and no work-up completed). She also received a total of 17 grams IV Mg and 40 mEq KCl. She will be discharged home today following Radiation and IV Magnesium (given in preparation for potential treatment with Cisplatin later this week, due for C4 01/08/2018). She will go home off antibiotics and continue current steroids. She has been instructed to follow-up with Dr. Green in 2-3 weeks and will be seen in our office for labs and potential treatment in two days. She will start oral electrolyte replacement and continue current lasix due to continued edema. Her Xeralto has been resumed as well. Plan of care reviewed at length and all questions answered. >40 min spent with >50% face to face counseling
[2018-01-06 11:39] VITALS: BP 117/46
[2018-01-06] MEDS ORDERED: Vancomycin Trough Check NOTE FOLLOW UP ONE (12:30)
[2018-01-06] MEDS: Tiotropium CAP.INH* CAP.INH/18 MCG (USE ORDER SET !) INH SCH (13:57)
[2018-01-06] MEDS ORDERED: Rivaroxaban TAB(*) 20 MG TAB PO SCH (18:00)
== END 2018-01-06 15:00 | disposition home or self-care (01) | DRG 193 ==
LOC: MED 16:06
PROVIDERS: ADMIT Internal Medicine Hematology & Oncology; ATTEND Internal Medicine Hematology & Oncology
PROC: 30233N1 Transfusion of Nonautologous Red Blood Cells into Peripheral Vein, Percutaneous Approach (ICD-10-PCS; principal; 2017-12-31)
PROC: DB0 Radiation Therapy, Respiratory System, Beam Radiation (ICD-10-PCS; 2017-12-31)
DX: J18.9 Pneumonia, unspecified organism (principal); D61.810 Antineoplastic chemotherapy induced pancytopenia; C34.31 Malignant neoplasm of lower lobe, right bronchus or lung; Z68.42 Body mass index [BMI] 45.0-49.9, adult; D70.4 Cyclic neutropenia; J44.9 Chronic obstructive pulmonary disease, unspecified; I48.91 Unspecified atrial fibrillation; E83.42 Hypomagnesemia; R50.81 Fever presenting with conditions classified elsewhere; E78.5 Hyperlipidemia, unspecified; I10 Essential (primary) hypertension; E66.9 Obesity, unspecified; M19.90 Unspecified osteoarthritis, unspecified site; G47.30 Sleep apnea, unspecified; E87.6 Hypokalemia; M25.532 Pain in left wrist; B37.9 Candidiasis, unspecified; Z88.1 Allergy status to other antibiotic agents; Z91.012 Allergy to eggs; Z88.5 Allergy status to narcotic agent; Z88.2 Allergy status to sulfonamides; Z91.048 Other nonmedicinal substance allergy status; Z88.8 Allergy status to other drugs, medicaments and biological substances; Z79.01 Long term (current) use of anticoagulants; Z79.52 Long term (current) use of systemic steroids; Z87.891 Personal history of nicotine dependence; Z79.899 Other long term (current) drug therapy; Z82.5 Family history of asthma and other chronic lower respiratory diseases; Z83.3 Family history of diabetes mellitus
CPT/HCPCS: 36415; 71046; 77336; 77386; 80048; 80053; 80202; 81003; 81015; 82272; 82306; 82607; 82728; 83540; 83550; 83605; 83735; 83880; 85025; 85060; 86850; 86900; 86901; 86922; 87040; 87070; 87077; 87086; 87186; 87205; 87899; 94640; 96365; 99214; 99223; 99232; 99239; A9270-GY; G0463; J0692; J1642; J1940; J2920; J3370; J3475; J3480; J7512; P9016; P9040

== ENCOUNTER 2018-02-10 11:03 | Inpatient (IN) | payer MEDICARE ==
--- OUTSIDE RECORDS SUMMARY | 2018-02-10 11:11 | XMS REPORT | Continuity of Care Document ---
:1945 External Reference #:[id number] Author Name Zach Kingsley MD Address [address] [place] [address] Care Team Providers Name Role Phone Matilde Green MD Care Team Information Subpoena Server Unavailable Lorelei Dunlap MD Primary Care Physician Unavailable Payers Type Date Identification Numbers Payment Provider Subscriber Effective: 2017 Policy Number: [id number] BS Medicare Blue Kassandra Giraldo Expires: 2017 PayID: [id number] [address] [address] [place] [address] Effective: 2017 Policy Number: [id number] Today's Options Kassandra Giraldo PayID: [id number] [address] [address] [place] [address] PayID: [id number] [facility] Kassandra Giraldo [address] [place] [address] Advance Directives Description No Information Available Problems Date Description Provider Status Onset: 07/05/2016 Exacerbation of moderate Matilde Green MD Active persistent asthma Onset: 01/04/2016 Obstructive sleep apnea syndrome Matilde Green MD Active Onset: 11/23/2015 Asthma without status asthmaticus Matilde Green MD Active Onset: 11/23/2015 Disturbance in sleep behavior Matilde Green MD Active Onset: 11/23/2015 Morbid obesity Matilde Green MD Active Onset: 09/01/2015 Iliotibial band friction syndrome Nguyễn Mattson Active Onset: 11/30/2014 Derangement of knee Nguyễn Mattson Active Onset: 11/30/2014 Osteoarthritis of knee Nguyễn Mattson Active Onset: 06/19/2013 Dyspnea Abhishek Beck Active Onset: 06/19/2013 Electrocardiogram abnormal Abhishek Beck Active Onset: 06/19/2013 Paroxysmal supraventricular Abhishek Beck Active tachycardia Onset: 10/05/2016 Allergic rhinitis due to pollen Zach Kingsley MD Active Onset: 10/05/2016 Allergic rhinitis Zach Kingsley MD Active Onset: 10/05/2016 Uncomplicated moderate persistent Zach Kingsley MD Active asthma Onset: 10/22/2016 Uncomplicated severe persistent Patricio Hurtado, RPA-C Active asthma Onset: 01/23/2017 Chronic obstructive lung disease Precious Guevara, Active RPA-C Onset: 02/22/2017 Pneumonia Precious Guevara, Active RPA-C Onset: 05/22/2017 Acute bronchitis Tosha Tariq NP Active Family History Date Family Member(s) Problem(s) Comments General Unknown Social History Type Date Description Comments Sex Unknown Smoke-Free Home is smoke-free Pets 1 dog Cigarette Use Pack Years - 30 Tobacco Use Start: Unknown End: Unknown Patient is a former smoker Tobacco Use Start: Unknown Quit 2004 Smoking Status Reviewed: 01/17/18 Quit 2004 Allergies, Adverse Reactions, Alerts Date Description Reaction Status Severity Comments 11/23/2015 Codeine Active 06/19/2013 Eggs Or Egg-Derived throat swelling Active Moderate Products 06/19/2013 Codeine rapid heart beat Active Severe 06/19/2013 [place] Syrup tongue swelling Active Severe 06/19/2013 Sulfa Antibiotics rash, buring feeling Active Severe 06/19/2013 Avocado rash and buring Active Severe feeling 06/19/2013 Levofloxacin rash Active Moderate 06/19/2013 Clindamycin rash Active Moderate Medications Medication Date Status Form Strength Qnty SIG Indications Ordering Provider Symbicort 01/17 Active Aerosol 160-4.5mc 1unit 2 puff J30.1 g/Act s twice a Mane Kingsley MD day Xolair 07/29 Active Solution 150mg 1unit administe Rec s r 300mg Mane Kingsley MD subcutane ously every 4 weeks as directed Spiriva Respimat 07/12 Active Aerosol 1.25mcg/A 1unit [address] inhalatio Mane Kingsley MD ns once daily Amoxicillin/Clav 05/31 Active Tablets 875-125mg 20tab i tabet Tosha ulanate s by mouth INGRID Tariq Potassium twice daily for 10 days. Ventolin HFA 05/22 Active Aerosol 108(90Bas 8gm inhale 2 e) puffs by Mane Kingsley MD mcg/Act inhalatio n route every 4 hours as needed Augmentin 05/22 Active Tablets 500-125mg 20tab take one s tablet by Mane Kingsley MD mouth twice a day x10 days. Prednisone 05/22 Active Tablets 20mg 10tab 1 tabs by s mouth bid Mane Kingsley MD Asmanex HFA 10/05 Active Aerosol 200mcg/Ac 13gm inhale 2 J30.1 t puffs Mane Kingsley MD twice a day. use with spacer. rinse mouth after use. Levocetirizine 10/05 Active Tablets 5mg 30tab take one J30.1 opher Dihydrochloride s tablet by Mane Kingsley MD mouth once daily as needed Albuterol 07/05 Active Nebulizer 0.63mg/3M 225un 1 unit, J45.41 Norma, Sulfate L its neblMatilde MD every 6 hours, as needed Diltiazem CD 07/03 Active Caps ER 180mg 1 by Brand, 24HR mouth Abhishek twice every day Losartan 04/18 Active Tablets 100mg 90tab 1 by Brand, Potassium s mouth Abhishek every day Montelukast 11/21 Active [facility] S[facility] mouth Mane Kingsley MD every day Atorvastatin Active Tablets 40mg 90tab 1 by Unknown Calcium / s mouth every day KP Vitamin D Active Capsules 1000Unit 1 by Unknown /0000 mouth every day Combivent Active Aerosol 20-100mcg 1unit 1 puffs Unknown Respimat /0000 /Act s 4-6 times daily as needed Xarelto Active Tablets 20mg 30tab 1 by Brand, / s mouth Abhishek every day Diltiazem HCL ER Active Caps ER 360mg Paliani-Bleg Beads 24HR enLorelei MD Prednisone 05/31 Hx TBPK 10mg (21) 21uni take 40 Tosha ts mg by INGRID Tariq - mouth bid 01/17 for days, then 30 mg by mouth bid, then 20mg bid, then 10 mg bid Spiriva Respimat 01/23 Hx Aerosol 2.5mcg/Ac 1Resp 2 J44.9 t imat inhalatio Mane Kingsley MD - ns by 07/12 daily Xopenex HFA 10/05 Hx Aerosol 45mcg/Act 15gm 2 puffs J30.1 every 4 Mane Kingsley MD - as needed 05/22 Mometasone 10/05 Hx Suspension 50mcg/Act 17gm instill 2 J30.1 opher Furoate sprays Mane Kingsley MD - into each 01/23 nostril once daily Furosemide 09/13 Hx Tablets 20mg 30tab 1 by J45.909 Norma s mouth MD Matilde - every day 05/22 Prednisone 07/26 Hx Tablets 5mg 14tab 1 tab by J45.41 Norma, s mouth MD Matilde - every day 01/23 morning Dulera 11/21 Hx Aerosol 200-5mcg/ 2 puff Act twice a - day 01/23 Clarinex Hx Tablets 5mg 1 by Unknown / mouth - every day 01/23 Amoxicillin/Clav Hx Tablets 875-125mg Unknown ulanate Potassium - 05/22 Prednisone Hx Tablets 20mg Unknown /0000 - 05/22 Medications Administered in Office Medication Date Status Form Strength Qnty SIG Indications Ordering Provider Injection 09/09/ Administered Injection Zach Haromab 2017 Mane Kingsley MD MG Therapeutic, 09/09/ Administered Injection Eulalioophthanh Prophylactic 2017 Mane Kingsley MD Or Diagnostic Injection Subq/Im Injection 08/09/ Administered Injection Zach Bartholomewb 2017 Mane Kingsley MD MG Therapeutic, 08/09/ Administered Injection Christopher Prophylactic 2017 Mane Kingsley MD Or Diagnostic Injection Subq/Im Injection 07/12/ Administered Injection Christopher Omalizumab 2017 Mane Kingsley MD MG Therapeutic, 07/12/ Administered Injection Christopher Prophylactic 2017 Mane Kingsley MD Or Diagnostic Injection Subq/Im Injection 06/14/ Administered Injection Christopher Omalizumab 2017 Mane Kingsley MD MG Therapeutic, 06/14/ Administered Injection Christopher Prophylactic 2017 Mane Kingsley MD Or Diagnostic Injection Subq/Im Flublok 01/23/ Administered Injection Precious Mckenzie [facility]ative/E 2016 [facility] [id number] Immunizations Description No Information Available Vital Signs Date Vital Result Comment 01/17/2018 8:39am BP Systolic 126 mmHg BP Diastolic 60 mmHg Height 64 inches 5'4" Weight 278.00 lb BMI (Body Mass Index) 47.7 kg/m2 Heart Rate 86 /min Respiratory Rate 18 /min Body Temperature 96.2 F O2 % BldC Oximetry 95 % 10/11/2017 8:49am BP Systolic 141 mmHg BP Diastolic 70 mmHg Height 64 inches 5'4" Weight 282.38 lb BMI (Body Mass Index) 48.5 kg/m2 Heart Rate 76 /min Respiratory Rate 18 /min Body Temperature 98.3 F O2 % BldC Oximetry 93 % 05/31/2017 1:25pm Height 64 inches 5'4" Weight 181.00 lb BMI (Body Mass Index) 31.1 kg/m2 Heart Rate 74 /min Respiratory Rate 18 /min Body Temperature 96.9 F O2 % BldC Oximetry 94 % 05/22/2017 2:37pm Height 64 inches 5'4" Weight 181.00 lb BMI (Body Mass Index) 31.1 kg/m2 Heart Rate 60 /min Respiratory Rate 16 /min Body Temperature 97.2 F O2 % BldC Oximetry 93 % 02/22/2017 10:18am Height 64 inches 5'4" Weight 283.00 lb BMI (Body Mass Index) 48.6 kg/m2 Heart Rate 70 /min Respiratory Rate 18 /min Body Temperature 96.7 F O2 % BldC Oximetry 94 % 01/23/2017 11:31am Height 64 inches 5'4" Weight 283.00 lb BMI (Body Mass Index) 48.6 kg/m2 Heart Rate 64 /min Respiratory Rate 16 /min Body Temperature 94.5 F O2 % BldC Oximetry 93 % 10/22/2016 11:02am Height 64 inches 5'4" Weight 281.00 lb BMI (Body Mass Index) 48.2 kg/m2 Heart Rate 67 /min Respiratory Rate 18 /min Body Temperature 96.6 F O2 % BldC Oximetry 96 % 10/05/2016 1:35pm BP Systolic 142 mmHg BP Diastolic 84 mmHg Height 64 inches 5'4" Weight 281.00 lb BMI (Body Mass Index) 48.2 kg/m2 Heart Rate 80 /min Respiratory Rate 18 /min Body Temperature 98.4 F O2 % BldC Oximetry 94 % 09/13/2016 1:25pm Height 64 inches Weight 282.00 lb BMI (Body Mass Index) 48.4 kg/m2 Heart Rate 74 /min Respiratory Rate 24 /min O2 % BldC Oximetry 96 % 07/26/2016 10:49am Height 64 inches Weight 270.00 lb BMI (Body Mass Index) 46.3 kg/m2 Heart Rate 66 /min Respiratory Rate 18 /min O2 % BldC Oximetry 97 % 07/23/2016 1:02pm BP Systolic 148 mmHg BP Diastolic 69 mmHg Height 64 inches Weight 270.00 lb BMI (Body Mass Index) 46.3 kg/m2 Heart Rate 60 /min Respiratory Rate 16 /min Body Temperature 98.0 F Results Test Date Facility Test Result H/L Range Note Order 01/17/2018 [facility] Nitric Oxide <pending> PFT Supplies <pending> PFT With Bronchodilator <pending> Laboratory test finding 07/10/2017 N2N/CCD Import Albumin 4.0 g/dL 3.2- 5.2 Albumin/Globulin Ratio 1.6 1 1-3 Alkaline Phosphatase 70 U/L 34-104 Alt 39 U/L 7-52 Anion Gap 10 mmol/L 2-11 Ast 20 U/L 13-39 B-Type Natriuretic Peptide BNP 80 pg/mL 1 BUN/Creatinine Ratio 11.8 1 8-20 Blood Urea Nitrogen 10 mg/dL 6-24 Calcium 10.0 mg/dL 8.6-10.3 Chloride 106 mmol/L 101-111 Co2 Carbon Dioxide 25 mmol/L 22-32 Creatinine 0.85 mg/dL 0.51-0.95 Egfr 85.0 1 >60 2 Egfr Non- 66.1 1 >60 Globulin 2.5 g/dL 2-4 Glucose 91 mg/dL 70-100 Potassium 4.1 mmol/L 3.5-5.0 Sodium 141 mmol/L 139-145 Total Bilirubin 0.40 mg/dL 0.2-1.0 Total Protein 6.5 g/dL 6.4-8.9 CBC Auto Diff 07/10/2017 N2N/CCD Import Abs Basophils 0.2 10^3/uL 0-0.2 Abs Eosinophils 0.1 10^3/uL 0-0.6 Abs Lymphocytes 2.9 10^3/uL 1.0-4.8 Abs Monocytes 1.6 10^3/uL High 0-0.8 Abs Neutrophils 8.6 10^3/uL High 1.5-7.7 Abs Nucleated RBC 0 10^3/uL Basophil % 1.2 % 0-2 Eosinophil % 0.9 % 0-6 Granulocyte % 64.4 % 38-83 Hematocrit 38 % 35-47 Hemoglobin 12.5 g/dL 12.0-16.0 Lymphocyte % 21.4 % Low 25-47 Mean Corpuscular HGB Conc 33 g/dL 31-36 Mean Corpuscular Hemoglobin 33 pg High 27-31 Mean Corpuscular Volume 99 fL High 80-97 Mean Platelet Volume 10.1 um3 7.4-10.4 Monocyte % 12.1 % High 0-7 Nucleated Red Blood Cells % 0.1 1 Platelet Count 235 10^3/uL 150-450 Red Blood Count 3.81 10^6/uL Low 4.0-5.4 Red Cell Distribution Width 14 % 10.5-15 White Blood Count 13.4 10^3/uL High 3.5-10.8 Laboratory test finding 07/26/2016 N2N/CCD Import Anti Nuclear Antibody 0.3 U 3 Immunoglobulin E (Ige) 362 kU/L <=214 4 CBC Auto Diff 07/26/2016 N2N/CCD Import Abs Basophils 0.1 10^3/uL 0-0.2 Abs Eosinophils 0.2 10^3/uL 0-0.6 Abs Lymphocytes 3.3 10^3/uL 1.0-4.8 Abs Monocytes 1.4 10^3/uL High 0-0.8 Abs Neutrophils 11.6 10^3/uL High 1.5-7.7 Abs Nucleated RBC 0 10^3/uL Basophil % 0.9 % 0-2 Eosinophil % 1.0 % 0-6 Granulocyte % 69.6 % 38-83 Hematocrit 39 % 35-47 Hemoglobin 12.5 g/dL 12.0-16.0 Lymphocyte % 19.8 % Low 25-47 Mean Corpuscular HGB Conc 32 g/dL 31-36 Mean Corpuscular Hemoglobin 31 pg 27-31 Mean Corpuscular Volume 98 fL High 80-97 Mean Platelet Volume 10 um3 7.4-10.4 Monocyte % 8.7 % 1-9 Nucleated Red Blood Cells % 0 1 Platelet Count 228 10^3/uL 150-450 Red Blood Count 3.99 10^6/uL Low 4.0-5.4 Red Cell Distribution Width 15 % 10.5-15 White Blood Count 16.7 10^3/uL High 3.5-10.8 1 >100 to <200 pg/mL: likely compensated congestive heart failure (CHF) 200 to 400 pg/mL: likely moderate CHF >400 pg/mL: likely moderate to severe CHF 2 Because ethnic data is not always readily [...] 15-29 5 Kidney failure <15 (or dialysis) 3 REFERENCE VALUE <=1.0 (Negative) Test Performed by: [address] [address] Test Performed by: [facility] [address] [place] [address] Procedures Date Code Description Status 01/17/2018 64487 Nitric Oxide Gas Determination Completed 01/17/2018 03517 Bronchodilation Responsiveness Spirometry Pre/Post Completed Bronchodil Adm 09/09/2017 60397 Therapeutic, Prophylactic Or Diagnostic Injection Subq/Im Completed 09/09/2017 18122 Spirometry Completed 09/09/2017 92210 Spirometry Completed 08/09/2017 63801 Therapeutic, Prophylactic Or Diagnostic Injection Subq/Im Completed 08/09/2017 87247 Spirometry Completed 07/12/2017 89518 Therapeutic, Prophylactic Or Diagnostic Injection Subq/Im Completed 06/14/2017 34085 Spirometry Completed 06/14/2017 08923 Therapeutic, Prophylactic Or Diagnostic Injection Subq/Im Completed 05/22/2017 23433 Bronchodilation Responsiveness Spirometry Pre/Post Completed Bronchodil Adm 05/22/2017 63737 Bronchodilation Responsiveness Spirometry Pre/Post Completed Bronchodil Adm 02/22/2017 66024 Nitric Oxide Gas Determination Completed 02/22/2017 37838 Bronchodilation Responsiveness Spirometry Pre/Post Completed Bronchodil Adm 01/23/2017 75478 Nitric Oxide Gas Determination Completed 01/23/2017 93459 Bronchodilation Responsiveness Spirometry Pre/Post Completed Bronchodil Adm 10/05/2016 19292 Nitric Oxide Gas Determination Completed 10/05/2016 04000 Bronchodilation Responsiveness Spirometry Pre/Post Completed Bronchodil Adm Encounters Type Date Location Provider Dx Diagnosis Office Visit 01/17/2018 Neelima Kingsley J30.1 Allergic rhinitis 8:15a MD due to pollen J30.89 Other allergic rhinitis J45.40 Moderate persistent asthma, uncomplicated Office Visit 10/11/2017 8:45a Neelima Kingsley J30.89 Other allergic MD rhinitis J44.9 Chronic obstructive pulmonary disease, unspecified J45.50 Severe persistent asthma, uncomplicated Office Visit 05/31/2017 1:30p Neelima Tariq NP J45.50 Severe persistent asthma, uncomplicated J20.9 Acute bronchitis, unspecified J44.9 Chronic obstructive pulmonary disease, unspecified J45.40 Moderate persistent asthma, uncomplicated Office Visit 05/22/2017 2:30p Neelima Tariq NP J30.1 Allergic rhinitis due to pollen J45.40 Moderate persistent asthma, uncomplicated J44.9 Chronic obstructive pulmonary disease, unspecified J20.9 Acute bronchitis, unspecified Office Visit 02/22/2017 10:15a Neelima Guevara, J30.1 Allergic rhinitis RPA-C due to pollen J30.89 Other allergic rhinitis J45.40 Moderate persistent asthma, uncomplicated J44.9 Chronic obstructive pulmonary disease, unspecified J18.9 Pneumonia, unspecified organism Office Visit 01/23/2017 10:30a Neelima Mckenzie J44.9 Chronic obstructive [place], RPA-C pulmonary disease, unspecified J45.40 Moderate persistent asthma, uncomplicated J30.89 Other allergic rhinitis Office Visit 10/22/2016 11:00a Patricio Wilburn J45.50 Severe persistent RPA-C asthma, uncomplicated J30.1 Allergic rhinitis due to pollen J30.89 Other allergic rhinitis Office Visit 10/05/2016 1:30p Neelima Kingsley J30.1 Allergic rhinitis MD due to pollen J.89 Other allergic rhinitis J45.40 Moderate persistent asthma, uncomplicated Plan of Treatment Future Appointment(s):07/18/2018 8:15 am - Zach Kingsley MD at [id number] - Zach Kingsley MDJ30.1 Allergic rhinitis due to pollenNew Medication:Symbicort 160-4.5 mcg/Act - 2 puff twice a dayJ30.89 Other allergic iphvdpwaL95.40 Moderate persistent asthma, uncomplicated
--- OUTSIDE RECORDS SUMMARY | 2018-02-10 11:11 | XMS REPORT | Continuity of Care Document ---
:1945 External Reference #:[id number] Author Name Zach Kingsley MD Address [address] [place] [address] Care Team Providers Name Role Phone Matilde Green MD Care Team Information Box Worker Unavailable Lorelei Dunlap MD Primary Care Physician Unavailable Payers Type Date Identification Numbers Payment Provider Subscriber Effective: 2017 Policy Number: [id number] BS Medicare Blue Kassandra Giraldo Expires: 2017 PayID: [id number] [address] [address] [place] [address] Effective: 2017 Policy Number: [id number] Today's Options Kassandra Giraldo PayID: [id number] [address] [address] [place] [address] PayID: [id number] [facility] Kassandra Giraldo [address] [place] [address] Advance Directives Description No Information Available Problems [...] Codeine rapid heart beat Active Severe 06/19/2013 [place] Syrup tongue swelling Active Severe 06/19/2013 Sulfa [...] 11/21 Active Tablets 10mg 30tab [facility] Sodium s mouth Mane Kingsley MD [...] mouth Abhishek every day Diltiazem HCL ER 00 Active Caps ER 360mg Paliani-Bleg Beads / 24HR enLorelei MD Prednisone 05/31 Hx TBPK 10mg (21) 21uni take 40 Tosha ts mg by INGRID Tariq - mouth bid 01/17 for days, then 30 mg by mouth bid, then 20mg bid, then 10 mg bid Spiriva Respimat 01/23 Hx Aerosol 2.5mcg/Ac 1Resp 2 J44.9 t imat inhalatio Mane Kingsley MD - ns by 07/12 mouth daily Xopenex HFA 10/05 Hx Aerosol 45mcg/Act [...] 01/23 Amoxicillin/Clav Hx Tablets 875-125mg Unknown ulanate /0000 Potassium - 05/22 Prednisone Hx Tablets 20mg Unknown /0000 - 05/22 Medications Administered in Office Medication Date Status Form Strength Qnty SIG Indications Ordering Provider Flublok 01/17/ Administered Injection Zach Preservative/E 2017 Mane Kingsley MD gg Free [id number] Injection 09/09/ Administered Injection Zach Omalizumab 5 2017 Mane Kingsley MD MG Therapeutic, 09/09/ Administered Injection Zach Prophylactic 2017 Mane Kingsley MD Or Diagnostic Injection Subq/Im Injection 08/09/ Administered Injection Christopher Omalizumab 2017 Mane Kingsley MD MG Therapeutic, 08/09/ [...] Injection Subq/Im Flublok 01/23/ Administered Injection Precious S. [facility]ervative/E 2017 [facility] [id number] Immunizations Description No Information Available Vital Signs [...] Date Facility Test Result H/L Range Note Laboratory test finding 07/10/2017 N2N/CCD Import Albumin [...] REFERENCE VALUE <=1.0 (Negative) Test Performed by: [address] [address] Test Performed by: [facility] [address] [place] [address] Procedures Date Code Description Status 01/17/2018 36298 Nitric Oxide Gas Determination Completed 01/17/2018 07659 Bronchodilation Responsiveness Spirometry Pre/Post Completed Bronchodil Adm 09/09/2017 61880 Therapeutic, Prophylactic Or Diagnostic Injection Subq/Im Completed 09/09/2017 10723 Spirometry Completed 09/09/2017 21859 Spirometry Completed 08/09/2017 94586 Therapeutic, Prophylactic Or Diagnostic Injection Subq/Im Completed 08/09/2017 64476 Spirometry Completed 07/12/2017 07209 Therapeutic, Prophylactic Or Diagnostic Injection Subq/Im Completed 06/14/2017 97387 Spirometry Completed 06/14/2017 04580 Therapeutic, Prophylactic Or Diagnostic Injection Subq/Im Completed 05/22/2017 91589 Bronchodilation Responsiveness Spirometry Pre/Post Completed Bronchodil Adm 05/22/2017 02803 Bronchodilation Responsiveness Spirometry Pre/Post Completed Bronchodil Adm 02/22/2017 28265 Nitric Oxide Gas Determination Completed 02/22/2017 38054 Bronchodilation Responsiveness Spirometry Pre/Post Completed Bronchodil Adm 01/23/2017 38200 Nitric Oxide Gas Determination Completed 01/23/2017 54706 Bronchodilation Responsiveness Spirometry Pre/Post Completed Bronchodil Adm 10/05/2016 42668 Nitric Oxide Gas Determination Completed 10/05/2016 66864 Bronchodilation Responsiveness Spirometry Pre/Post Completed Bronchodil Adm [...] J30.1 Allergic rhinitis MD due to pollen J. Other allergic rhinitis J45.40 Moderate persistent asthma, uncomplicated Plan of Treatment Future Appointment(s):07/18/2018 8:15 am - Zach Kingsley MD at [id number] - Zach Kingsley MDJ30.1 Allergic rhinitis due to pollenNew Medication:Symbicort 160-4.5 mcg/Act - 2 puff twice a dayJ30.89 Other allergic ytutrhoyI42.40 Moderate persistent asthma, uncomplicated
--- OUTSIDE RECORDS SUMMARY | 2018-02-10 11:11 | XMS REPORT ---
:1945 External Reference #:[id number] Author Organization [employer] Address [address] [place] [address] Phone [phone] Care Team Providers Name Role Phone Lorelei Pickett MD Care Team Information Business Info Consultant Unavailable Lorelei Pickett MD Primary Care Physician Unavailable Payers Type Date Identification Numbers Payment Provider Subscriber Health Maintenance Expires: Policy Number: Medicare Pavel Naylor Organization (O) 07/22/2017 [id number] Ppo Group Number: [id number] [address] [address] PayID: [id number] ROBINSON Prasad [id number] Commercial Effective: Policy Number: [facility] Option/Gisella Naylor 06/23/2017 [id number] pr PayID: [id number] [address] [address] Attn: [place] [address] Problems Date Description Provider Status Onset: 06/19/2013 [...] With Occupation 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 Cigarette Use Former Cigarette Smoker ETOH Use [...] Eggs or Egg-derived throat swelling active Moderate Can eat products Products that contain eggs 06/19/2013 Codeine rapid heart beat active Moderate to Severe 06/19/2013 [place] Syrup tongue swelling active Severe 06/19/2013 Sulfa Antibiotics rash, buring active Moderate to feeling Severe 06/19/2013 Artichoke rash,buring active Moderate to feeling Severe 06/19/2013 Avocado rash and buring active Moderate to feeling Severe 06/19/2013 Levaquin rash active Moderate 06/19/2013 Clindamycin rash active Moderate 11/23/2015 Codeine active 05/28/2017 Dust Mites active 05/28/2017August Grass Pollen active Extract Medications Medication Date Status Form Strength Qnty SIG Indications Ordering Provider Symbicort 09/16 Active Aerosol 160-4.5mc 20.4g 1 puff Matilde /2017 g/Act m twice a day MD Norma [...] 40mg 90tab 1 by mouth Unknown Calcium s every day Vitamin D High Active [...] Respimat Active Aerosol 1.25mcg/A inhale two Unknown ct puffs by mouth every day Ventolin HFA Active Aerosol 108(90Bas 2 puffs by Unknown 0000 e) mouth four mcg/Act times a day as needed Magnesium Active Tablets 1200mg 1 by mouth Unknown / every day Prednisone Active Tablets 5mg 2 tabs by J45.901 Unknown /0000 mouth daily (tapering, currently 10 mg 01/27/18) Carboplatin Active Solution 600mg/60M chemo Unknown / L infusion Etoposide Active Solution 230 chemo Unknown /0000 infusion Azithromycin 12/03 Hx Tablets 500mg 7tabs 1 tablet by J45.901 Matilde mouth daily Norma, - for 7 days [...] Unknown /0000 every day - 11/23 Combivent Hx Aerosol 20-100mcg 1unit 1 puffs 4-6 Unknown Respimat /0000 /Act s times daily - as needed 09/01 Gabapentin Hx Tablets 600mg 60tab 1 tabs by M76.32 Nguyễn /0000 s mouth every Srinivasan, - day at M.D. 02/19 bedtime as directed Augmentin Hx not sure of Unknown /0000 dose, [...] Administered Injection Arcelia 40MG 016 JEANNA Wells Depangrol Administered Injection Arcelia 40MG JEANNA Sr Depomedrol Administered Injection Nguyễn 80MG 015 Ashly Mattson Inj, Administered Injection Abhishek Ramirez Regadenoson, 014 Ashly Beck 0.1 MG Technetium TC Administered Injection Abhishek Ramirez 99M 014 Ashly Beck Tetrofosmin, Per Unit Dose Up To 40 Millicuries Depomedrol Administered Injection Nguyễn 80MG Lakia Mattson M.D. Vital Signs Date Vital Result Comment 01/27/2018 Height 64 inches 5'4" Weight 263.38 lb Heart Rate 84 /min BP Systolic Sitting 122 mmHg Lue large cuff BP Diastolic Sitting 56 mmHg Lue large cuff Respiratory Rate 20 /min O2 % BldC Oximetry 95 % On Ra BMI (Body Mass Index) 45.2 kg/m2 12/10/2017 Height 64 inches 5'4" Weight 277.00 [...] Marker tnp Laboratory test finding 10/31/2017 Cytology Non-Electric Transfer Operator SEE RESULT BELOW 3 Laboratory test finding 09/18/2017 Cytology Non-Electric Transfer Operator SEE RESULT BELOW 4 Comp Metabolic Panel [...] [address]: Matilde Green MD Acct: [id number] Unit: [id number] AGE: 72 Location: [facility] Re12/04/17 SEX: F Status: REG REF SPEC: [id number] PAWEL: [address]: Matilde Green MD REQ: [id number] RECD: 12/04/17 STATUS: COMP _ SOURCE: SPUTUM,EXP SPDESC: ORDERED: [...] . END OF REPORT DEPARTMENT OF PATHOLOGY, [address] [place] [address] Apolinar Louis M.D. Director [facility] # [id number] 2 FINAL DIAGNOSIS: Specimen Source: Left parotid ([id number]) Flow cytometry immunophenotypic analysis: No evidence of [...] MD 11/04/17 0949 Technical component performed by: [place] [address] Physical Education Specialist: Federico Dow II, MD, PhD. 3 SEE RESULT BELOW Name: KASSANDRA NAYLOR : [address]: Ishmael AZEVEDO Acct: [id number] Unit: [id number] AGE: 72 Location: Re10/31/17 SEX: F Status: REG REF SPEC: [id number] PAWEL: 10/31/17-[address]: Ishmael AZEVEDO REQ: [id number] RECD: 10/31/17-8 STATUS: SOUT OT DR: Bruce Bruno MD _ ORDERED: FNA-IMG GUID BX, CY ADEQ-ADDL P, LEVEL 4, CYTO ADEQ-1ST P Flow cytometry has been performed at [facility], [place], [place]. The testing reveals: FINAL DIAGNOSIS: Specimen Source: Left parotid ([id number]) Flow cytometry immunophenotypic analysis:No evidence of an [...] Joe MD11/04/17 0949 Technical component performed by: [place] [address] Physical Education Specialist: Federico Dow II, MD, PhD. Addendum Signed (signature on file) Candi Joe MD 1706 FINAL DIAGNOSIS CONTINUED ON NEXT PAGE DEPARTMENT OF PATHOLOGY, [address] [place] [address] Apolinar Louis M.D. Director [facility] # [id number] RUN DATE: 11/05/17 [facility] LAB LIVE PAGE 2 Patient: KASSANDRA NAYLOR [id number] (Continued) FINAL DIAGNOSIS (Continued) Left parotid lymph [...] formalin for cell blockand Specimen sent to [facility] for Flow cytometry [place], [place] on 10/31/17. Signed by and Reported on: Candi Joe MD 11/04/17 1055 END OF REPORT DEPARTMENT OF PATHOLOGY, [address] [place] [address] Apolinar Louis M.D. Director [facility] # [id number] 4 SEE RESULT BELOW Name: KASSANDRA NAYLOR : [address]: Matilde Green MD Acct: [id number] Unit: [id number] AGE: 72 Location: [place] Re09/18/17 SEX: F Status: DEP SDC SPEC: [id number] PAWEL: 09/18/17-[address]: Matilde Green MD REQ: [id number] RECD: 09/18/17 STATUS: SOUT _ ORDERED: FNA-IMG [...] CONTINUED ON NEXT PAGE DEPARTMENT OF PATHOLOGY, [address] [place] [address] Apolinar Louis M.D. Director [facility] # [id number] RUN DATE: 09/20/17 [facility] LAB LIVE PAGE 2 Patient: KASSANDRA NAYLOR [id number] (Continued) FINAL DIAGNOSIS (Continued) Comment: Dr. Joe [...] 1210 END OF REPORT DEPARTMENT OF PATHOLOGY, [address] [place] [address] Apolinar Louis M.D. Director [facility] # [id number] 5 Because ethnic data is not always [...] <15 (or dialysis) 6 Test Performed by: [address] [address] 7 Test Performed by: [address] [address] 8 REFERENCE VALUE <=1.0 (Negative) Test Performed by: [facility] [place], [facility] [address] [place] [address] Procedures Date CPT Code Description Status 01/15/2018 04620 ECHO Transthorasic Realtime 2D W Doppler & Color Flow Completed Hosp 11/21/2017 33106 Implantable Cardio System Loop Recorder Sys Remota Data Completed Acquistio 11/21/2017 42054 Interrogation Dev Loop Recorder Incl Physician Completed Analysis,Rev,Repor 11/01/2017 85113 Moderate Sedation Services; Same Phys Each Additional Completed 15 Mins 11/01/2017 58605 Moderate Sedation Services; Same Phys Intl 15 Mins; PT Completed >=5 Years 11/01/2017 87553 Fluoroscopic Guidance For Cent Completed 11/01/2017 05415 Ultrasound Guidance For Vascular Access Completed 11/01/2017 81447 Insertion Tunneled Cent Venous Cathr W Subcut Port 5 Completed Yrs Or Oldr 10/21/2017 24326 Implantable Cardio System Loop Recorder Sys Remota Data Completed Acquistio 10/21/2017 67728 Interrogation Dev Loop Recorder Incl Physician Completed Analysis,Rev,Repor 09/20/2017 64935 Implantable Cardio System Loop Recorder Sys Remota Data Completed Acquistio 09/20/2017 84714 Interrogation Dev Loop Recorder Incl Physician Completed Analysis,Rev,Repor 09/18/2017 17596 Endobronchial Ultrasound=>3 Completed 08/20/2017 79718 Implantable Cardio System Loop Recorder Sys Remota Data Completed Acquistio 08/20/2017 02392 Interrogation Dev Loop Recorder Incl Physician Completed Analysis,Rev,Repor 07/31/2017 37401 EKG Tracing & Interpretation Completed 07/20/2017 72563 Implantable Cardio System Loop Recorder Sys Remota Data Completed Acquistio 07/20/2017 01072 Interrogation Dev Loop Recorder Incl Physician Completed Analysis,Rev,Repor 06/19/2017 30633 Implantable Cardio System Loop Recorder Sys Remota Data Completed Acquistio 06/19/2017 34748 Interrogation Dev Loop Recorder Incl Physician Completed Analysis,Rev,Repor 05/19/2017 85156 Implantable Cardio System Loop Recorder Sys Remota Data Completed Acquistio 05/19/2017 14693 Interrogation Dev Loop Recorder Incl Physician Completed Analysis,Rev,Repor 04/18/2017 48979 Implantable Cardio System Loop Recorder Sys Remota Data Completed Acquistio 04/18/2017 04590 Interrogation Dev Loop Recorder Incl Physician Completed Analysis,Rev,Repor 03/18/2017 80233 Interrogation Dev Loop Recorder Incl Physician Completed Analysis,Rev,Repor 03/18/2017 29641 Implantable Cardio System Loop Recorder Sys Remota Data Completed Acquistio 02/15/2017 89978 Implantable Cardio System Loop Recorder Sys Remota Data Completed Acquistio 02/15/2017 09731 Interrogation Dev Loop Recorder Incl Physician Completed Analysis,Rev,Repor 01/14/2017 55552 Implant Cardiac Loop Recorder Completed 12/21/2016 94686 EKG Tracing & Interpretation Completed 07/04/2016 29783 EKG Tracing & Interpretation Completed 04/18/2016 08277 EKG Tracing & Interpretation Completed 04/12/2016 57473 Inject/Drain Joint/Bursa Major W/O US Completed 12/21/2015 09552 Polysomnography Sleep Staging 4+ Parameters Completed 12/14/2015 64220 Diffusing Capacity Completed 12/14/2015 87843 Plethysmography Determination Lung Volumes & Per Airway Completed Resist 12/14/2015 56796 Pulmonary Function><Bronchodil Completed 11/25/2015 52480 EKG Tracing & Interpretation Completed 11/16/201532448 Inject/Drain Joint/Bursa Major W/O US Completed 11/03/2015 78877 ECHO Transthorasic Realtime 2D W Doppler & Color Flow Completed Hosp 07/29/201577002 Inject/Drain Joint/Bursa Major W/O US Completed 07/29/201520586 Inject/Drain Joint/Bursa Major W/O US Completed 04/27/2015 06199 Inject/Drain Joint/Bursa Major W/O US Completed 11/30/201404544 Inject/Drain Joint/Bursa Major W/O US Completed 07/01/2013 00302 Stress Test Completed 07/01/2013 28153 Myocardial Perfusion Imaging Tomographic (Spect) Completed Multiple Studies 12/13/2010 67264 Xray Knee 3 Views Completed 12/13/2010 Inject/Drain Joint/Bursa Major W/O US Completed 12/05/2010 39801 Color Flow Doppler/Interp & Reprt Completed 12/05/2010 79693 Pulse Wave/Continuous-Interp.RPT Completed 12/05/2010 45614 ECHO Transthorasic Realtime 2D W Doppler & Color Flow Completed Hosp Encounters Type Date Location Provider CPT E/M Dx Office Visit 01/03/2018 [facility] Abimael Pulliam, 22111 D70.9 11:22a Infectious Diseases M.D. C34.90 Z92.3 Office Visit 12/10/2017 12:00p Pul[facility] [address] J45.901 Services Of [facility] G47.33 E66.01 Office Visit 12/03/2017 12:00p Pulmonology [place] [address] J45.901 Services AT [place] J20.9 G47.33 E66.01 C34.90 E66.09 Office Visit 09/23/2017 10:30a Pul[facility]ology [facility] Sleep Kasey Peralta 58366 G47.33 Services Of [facility] N.P. E66.09 J45.40 C34.90 Office Visit 09/16/2017 12:30p Pul[facility] [place] [address] R59.0 Services Of [facility] Office Visit 09/02/2017 9:15a Pul[facility] [place] [address] J45.41 Services [facility] G47.33 E66.09 Office Visit 07/31/2017 11:30a [facility] Elana Beck, 68899 I48.0 [facility] Parag.DTravis Z95.818 Office Visit 05/28/2017 12:30p Pulmonology [place] [address] J45.41 Services AT [place] G47.33 E66.09 Office Visit 01/23/2017 10:15a [facility] Elana Beck 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 R06.02 Office Visit 11/28/2016 11:00a [facility] [place] [address] G47.33 Services Of [employer] J45.40 J01.80 Office Visit 09/13/2016 1:30p [facility] [place] [address] J45.41 Services Of [employer] J30.9 G47.33 E66.01 Z68.42 Office Visit 07/26/2016 10:45a Pul[facility] [place] [address] J45.41 Services Of [employer] G47.33 E66.01 Z68.42 Office Visit 07/23/2016 1:00p [facility] 40573 M75.31 Ahsan GABRIEL M19.011 M75.41 Office Visit 07/05/2016 10:45a [facility] [place] [address] J45.41 Services Of [employer] G47.33 E66.01 Office Visit 07/04/2016 10:30a [facility] Abhishek Beck 94852 I48.0 Tung Limon J44.0 I10 Z01.810 M19.011 Office Visit 06/18/2016 2:45p [facility] 58703 M75.31 Ahsan GABRIEL M19.011 M75.41 Office Visit 04/30/2016 11:15a [facility] 48997 M75.31 Ahsan GABRIEL M75.41 M19.011 Office Visit 04/18/2016 11:00a [facility] Abhishek Beck 55875 I48.0 Tung Limon R06.02 J44.0 I10 Office Visit 04/12/2016 10:30a [facility] Christian Cai 77785 S46.011A Of Ahsan Sharpe MD M75.41 M19.011 Office Visit 02/21/2016 11:30a [facility] [place] [address] J45.909 Services Of [employer] G47.33 Office Visit 01/04/2016 11:30a Pul[facility] [place] [address] G47.33 Services Of [employer] J45.909 Office Visit 11/25/2015 1:00p [facility] Abhishek Beck, 51432 I48.0 Tung Tuttle.James J44.0 R94.31 Office Visit 11/23/2015 11:30a [facility] [place] [address] R06.02 Services [facility] J45.909 G47.9 E66.01 Office Visit 11/03/2015 4:06p [facility] Vladimir Rodriguez, 78663 I48.91 Hospitalists Ashly I48.0 J44.0 E66.01 Office Visit 11/02/2015 7:58a [facility], 19881 I48.91 Assoc,pc [place] Hospitalists J44.0 I10 Office Visit 09/01/2015 4:00p [facility] Of Nguyễn Chuino, 81731 M76.32 C.M.A. M.DTravis Office Visit 06/08/2015 10:40a [facility] Arcelia Bostonter, 92328 M17.0 C.M.A. ANP-C M76.32 M70.62 Office Visit 04/27/2015 10:40a [facility] Ar[facility]ia [place], 95530 M17.0 C.M.A. ANP-C M76.32 M70.62 Office Visit 03/31/2015 11:20a [facility] Ar[facility]ia [place], 75711 M17.0 C.M.A. ANP-C M76.32 Office Visit 01/04/2015 1:30p [facility] Arcelia Russell, 85275 M70.62 C.M.A. ANP-C M23.8x2 M17.0 Office Visit 11/30/2014 1:30p [facility] Of Nguyễn Mattson, 46456 717.89 C.M.A. M.James 715.96 Office Visit 07/14/2013 1:15p [facility] Elana Beck, 66723 794.31 Light Truck Driver [facility] Ashly 786.05 Office Visit 06/19/2013 2:00p [facility] Elana Beck, 52745 786.05 [facility] Ashly 794.31 427.0 Office Visit 01/30/2011 8:45a [facility] Nguyễn Mattson, 98475 715.96 C.M.A. M.D. Office Visit 12/13/2010 1:15p [facility] Nguyễn Mattson, 73119 715.96 C.M.A. M.D. 836.0 Plan of Care Future Appointment(s):03/11/2018 9:45 am - Matilde Green MD at [facility]01/27/2018 - Matilde Green MDJ45.40 Moderate persistent asthma, uncomplicatedFollow up:6 lkiidP46.33 Obstructive sleep apnea (adult) (pediatric)C34.90 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 bronchus or lungE66.09 Other obesity due to excess calories
--- OUTSIDE RECORDS SUMMARY | 2018-02-10 11:12 | XMS REPORT | Continuity of Care Document ---
:1945 External Reference #:[id number] Author Name Emilie Escalera Care Team Providers Name Role Phone Matilde Green MD Care Team Information Servicer Travel Trailers Unavailable Lorelei Dunlap MD Primary Care Physician Unavailable Payers Type Date Identification Numbers Payment Provider Subscriber Effective: 2017 Policy Number: [id number] BS Medicare Blue Kassandra Giraldo Expires: 2017 PayID: [id number] [address] [address] [place] [address] Effective: 2017 Policy Number: [id number] [employer] Kassandra Giraldo PayID: [id number] [address] [address] [place] [address] PayID: [id number] [facility] Kassandra Giraldo [address] [place] [address] Advance Directives Description No Information Available Problems [...] asthma Onset: 10/22/2016 Uncomplicated severe persistent Patricio Hurtado RPA-C Active asthma Onset: 01/23/2017 Chronic obstructive [...] Start: Unknown Quit 2004 Smoking Status Reviewed: 10/11/17 Quit 2004 Allergies, Adverse Reactions, Alerts Date Description Reaction Status Severity Comments 11/23/2015 Codeine Active 06/19/2013 Eggs Or Egg-Derived throat swelling Active Moderate Products 06/19/2013 Codeine rapid heart beat Active Severe 06/19/2013 Ida Syrup tongue swelling Active Severe 06/19/2013 Sulfa Antibiotics rash, buring feeling Active Severe 06/19/2013 Avocado rash and buring Active Severe feeling 06/19/2013 Levofloxacin rash Active Moderate 06/19/2013 Clindamycin rash Active Moderate Medications Medication Date Status Form Strength Qnty SIG Indications Ordering Provider Xolair 07/29 Active Solution 150mg 1unit administe Rec s r 300mg Mane Kingsley MD subcutane ously every 4 weeks as directed Spiriva Respimat 07/12 Active Aerosol 1.25mcg/A 1unit [address] inhalatio Mane Kingsley MD ns once daily Amoxicillin/Clav 05/31 Active Tablets 875-125mg 20tab i tabet Tosha s by mouth INGRID Tariq Potassium twice [...] Active Tablets 20mg 10tab 1 tabs by thanh s mouth bid Mane Kingsley MD Asmanex HFA 10/05 Active Aerosol 200mcg/Ac 13gm inhale 2 J30.1 t puffs Mane Kingsley MD twice a day. use with spacer. rinse mouth after use. Levocetirizine 10/05 Active Tablets 5mg 30tab take one J30.1 oph Dihydrochloride s tablet by Mane Kingsley MD mouth once daily as needed Albuterol 07/05 Active Nebulizer 0.63mg/3M 225un 1 unit, J45.41 Norma, Sulfate L its neblMatilde MD every 6 hours, as needed Diltiazem CD 07/03 Active Caps ER 180mg 1 by Brand 24HR mouth Abhishek twice every day Losartan 04/18 Active Tablets 100mg 90tab 1 by Kiran, Potassium s mouth Abhishek every day Montelukast 11/21 Active Tablets 10mg 30tab 1 by [place] Sodium s mouth Mane Kingsley MD every [...] ER Active Caps ER 360mg Paliani-Bleg Beads / 24HR Lorelei maria MD Prednisone 05/31 Hx TBPK 10mg (21) 21uni take 40 ts mg by INGRID Tariq - mouth [...] Suspension 50mcg/Act 17gm instill 2 J30.1 opher Fur sprays Mane Kingsley MD - into each 01/23 nostril once daily Furosemide 09/13 Hx Tablets 20mg 30tab 1 by J45.909 s larry Clayton MD - every day 05/22 Prednisone 07/26 Hx Tablets 5mg 14tab 1 tab by J45.41 Norma, s larry Clayton MD - every day 01/23 morning Dulera 11/21 Hx Aerosol 200-5mcg/ 2 puff Act twice a - day 01/23 Clarinex Hx Tablets 5mg 1 by Unknown /0000 mouth - every day 01/23 Amoxicillin/Clav Hx Tablets 875-125mg Unknown ulanate /0000 Potassium - 05/22 Prednisone Hx Tablets 20mg Unknown /0000 - 05/22 Medications Administered in Office Medication Date Status Form Strength Qnty SIG Indications Ordering Provider Injection 09/09/ Administered Injection Christopher Omalizumab 2017 Mane Kingsley MD MG Therapeutic, 09/09/ Administered Injection Christopher Prophylactic 2017 Mane Kingsley [...] Diagnostic Injection Subq/Im Injection 06/14/ Administered Injection Christophthahn Omalizumab 2017 Mane Kingsley MD MG Therapeutic, 06/14/ Administered Injection Christopher Prophylactic 2017 Mane Kingsley MD Or Diagnostic Injection Subq/Im Flublok 01/23/ Administered Injection Precious Mckenzie Preservative/E 2016 [place] gg Free r, [facility] 95458-817-50 Immunizations Description No Information Available Vital Signs [...] REFERENCE VALUE <=1.0 (Negative) Test Performed by: [address] [address] 4 Test Performed by: [address] [address] Procedures Date Code Description Status 09/09/2017 82272 Therapeutic, Prophylactic Or Diagnostic Injection Subq/Im Completed 09/09/2017 03623 Spirometry Completed 09/09/2017 76085 Spirometry Completed 08/09/2017 04113 Therapeutic, Prophylactic Or Diagnostic Injection Subq/Im Completed 08/09/2017 59368 Spirometry Completed 07/12/2017 64198 Therapeutic, Prophylactic Or Diagnostic Injection Subq/Im Completed 06/14/2017 29503 Therapeutic, Prophylactic Or Diagnostic Injection Subq/Im Completed 06/14/2017 85482 Spirometry Completed 05/22/2017 66729 Bronchodilation Responsiveness Spirometry Pre/Post Completed Bronchodil Adm 05/22/2017 76951 Bronchodilation Responsiveness Spirometry Pre/Post Completed Bronchodil Adm 02/22/2017 27312 Nitric Oxide Gas Determination Completed 02/22/2017 76947 Bronchodilation Responsiveness Spirometry Pre/Post Completed Bronchodil Adm 01/23/2017 48669 Nitric Oxide Gas Determination Completed 01/23/2017 29771 Bronchodilation Responsiveness Spirometry Pre/Post Completed Bronchodil Adm 10/05/2016 08899 Nitric Oxide Gas Determination Completed 10/05/2016 55628 Bronchodilation Responsiveness Spirometry Pre/Post Completed Bronchodil Adm Encounters Type Date Location Provider Dx Diagnosis Office Visit 10/11/2017 Neelima Kingsley J30.89 Other allergic 8:45a MD rhinitis J44.9 Chronic obstructive pulmonary disease, [...] bronchitis, unspecified Office Visit 02/22/2017 10:15a Neelima Ibrahimstcassandra J30.1 Allergic rhinitis RPA-C due to pollen [...] J30.1 Allergic rhinitis MD due to pollen J30.89 Other allergic rhinitis J45.40 Moderate persistent asthma, uncomplicated Plan of Treatment No Information Available
--- NOTE | 2018-02-10 11:17 | ED ---
GI/ HPI - HPI Summary HPI Summary: A 72 y/o F brought in by ambulance to ED for c/o watery diarrhea onset 4 days ago. Fluids started by EMS as her BP started to decrease en route to ED. Associated sx: weakness, lightheadedness, decreased appetite, chills. Denies abd pain, vomiting, fever. PMHx: CA and sees Dr. Martinez, oncology. She is scheduled for chemo on 02/19/18. Denies PMHx of Crohn's, UC, c diff, CHF. 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 Negative: Vomiting, Fever, Abdominal Pain - Additional Pertinent History Primary Care Physician: [id number] - Allergy/Home Medications Allergies/Adverse Reactions: Allergies Allergy/AdvReac Type Severity Reaction Status Date / Time clindamycin Allergy Severe Rash Verified 01/23/18 10:05 codeine Allergy Severe severe Verified 01/23/18 10:05 tachycardia Egg Derived Allergy Severe Difficulty Verified 01/23/18 10:05 Swallowing levofloxacin Allergy Severe Rash Verified 01/23/18 10:05 Sulfa (Sulfonamide Allergy Severe Rash Verified 01/23/18 10:05 Antibiotics) Home Medications: Home Medications Furosemide TAB* [Lasix TAB*] 20 mg PO DAILY 02/10/18 [History Confirmed 02/10/18 ] LevoCETirizine TAB (NF) [Xyzal TAB (NF)] 5 mg PO QAM 02/10/18 [History Confirmed 02/10/18] predniSONE TAB* [Deltasone TAB*] 5 mg PO DAILY 02/10/18 [History Confirmed 02/10] PMH/Surg Hx/FS Hx/Imm Hx Previously Healthy: No Endocrine/Hematology History: Denies: Hx Diabetes Cardiovascular History: Reports: Hx Hypercholesterolemia, Hx Hypertension, Other Cardiovascular Problems/Disorders - LOOP recorder on left side Denies: Hx Pacemaker/ICD Respiratory History: Reports: Hx Asthma, Hx Chronic Obstructive Pulmonary Disease (COPD), Hx Sleep Apnea History: Reports: Hx Kidney Stones Denies: Hx Renal Disease Musculoskeletal History: Reports: Hx Arthritis, Other Musculoskeletal History - corticosteroids shots in bilateral knees Denies: Hx Osteoporosis Sensory History: Reports: Hx Cataracts, Hx Contacts or Glasses, Hx Vision Problem - has reading glasses Denies: Hx Deafness, Hx Hearing Aid Opthamlomology History: Reports: Hx Cataracts, Hx Contacts or Glasses, Hx Vision Problem - has reading glasses Psychiatric History: Denies: Hx Panic Disorder - Cancer History Cancer Type, Location and Year: 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 Hx Chemotherapy: No Hx Radiation Therapy: No - Surgical History Surgery Procedure, Year, and Place: PORT RT SIDE, [employer] LINQ LOOP RECORDER, CATARACT REPAIR, CARPAL TUNNEL BILATERALLY, URETERAL STENTS FOR STONES Hx Anesthesia Reactions: No Infectious Disease History: Denies: Traveled Outside the [place] in Last 30 Days - Family History Family History: neg: Breast CA - Social History Occupation: Retired Lives: With Family Alcohol Use: None Substance Use Type: Reports: None Smoking Status (MU): Former Smoker Type: Cigarettes Amount Used/How Often: smoked approx 40 years 1-1 1/2ppd Length of Time of Smoking/Using Tobacco: 40 years Have You Smoked in the Last Year: No Review of Systems Positive: Chills. Negative: Fever Negative: Erythema Negative: Sore Throat Negative: Chest Pain Negative: Shortness Of Breath, Cough Positive: Diarrhea, Other - pos: decreased appetite. Negative: Abdominal Pain, Vomiting, Nausea Negative: dysuria, hematuria Negative: Myalgia, Edema Negative: Rash Neurological: Other - pos: lightheadedness Positive: Weakness All Other Systems Reviewed And Are Negative: Yes Physical Exam - Summary Physical Exam Summary: Constitutional: Well-developed, Well-nourished, Alert. (-) Distressed. Obese. Skin: Warm, Dry, Pale appearing HENT: Normocephalic; Atraumatic; mucous membranes are dry Eyes: Conjunctiva normal Neck: Musculoskeletal ROM normal neck. (-) JVD, (-) Stridor, (-) Tracheal deviation Cardio: Rhythm regular, rate normal, Heart sounds normal; Intact distal pulses; The pedal pulses are 2+ and symmetric. Radial pulses are 2+ and symmetric. (-) Murmur Pulmonary/Chest wall: Effort normal. (-) Respiratory distress, (-) Wheezes, (-) Rales Abd: Soft, diffuse abd tenderness, (-) Distension, (-) Guarding, (-) Rebound Musculoskeletal: (-) Edema Lymph: (-) Cervical adenopathy Neuro: Alert, Oriented x3 Psych: Mood and affect Normal Triage Information Reviewed: Yes Vital Signs Reviewed: Yes Diagnostics - Laboratory Result Diagrams: 02/10/18 11:57 02/10/18 11:57 Lab Statement: Any lab studies that have been ordered have been reviewed, and results considered in the medical decision making process. - Radiology CXR Radiology Interpretation Completed By: Radiologist Summary of Radiographic Findings: IMPRESSION: #. Stigmata of chronic obstructive pulmonary disease. Mild linear atelectasis at the LEFT lung base. # . Cardiomegaly without compelling evidence for pulmonary edema. #. No conspicuous focal pulmonary lesions evident. ED provider has reviewed this report. - CT ABD/PEL CT Interpretation Completed By: Radiologist Summary of CT Findings: IMPRESSION: There is dilated gallbladder with suggestion of some noncalcified gallstones in the neck of the gallbladder. The possibility of cholecystitis should BE considered. Pericholecystic infiltration of fat is noted. Likely left renal cyst. Fluid is present throughout the colon. This is consistent with history of diarrhea. There is also fluid in the vaginal wall which may be reflux from the urine. No bowel obstruction is noted. 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 ED provider has reviewed this report. Re-Evaluation - Re-Evaluation 1 Re-Evaluation Time: 12:36 Change: Unchanged Comment: Discussing low blood count with pt and and possibility that pt has been bleeding internally. Discussed risks/benefits of reversing blood thinner medication and blood transfusion. Pt signed transfusion form. GIGU Course/Dx - Course Course Of Treatment: Pt is a 72 y/o F presenting with watery diarrhea onset 4 days ago. Associated sx: weakness, lightheadedness, decreased appetite, chills. PMHx: CA and sees Dr. Martinez, oncology. Denies PMHx of Crohn's, UC, c diff, CHF. Critical lab values include: Hgb: 6.2, Abs neutrophils: 0.3, Lactic acid: 3.2 , Troponin: 0.07. CXR shows "stigmata of chronic obstructive pulmonary disease. Mild linear atelectasis at the LEFT lung base. Cardiomegaly without compelling evidence for pulmonary edema. No conspicuous focal pulmonary lesions evident.". A/P CT shows "There is dilated gallbladder with suggestion of some noncalcified gallstones in the neck of the gallbladder. The possibility of cholecystitis should BE considered. Pericholecystic infiltration of fat is noted. Likely left renal cyst. Fluid is present throughout the colon. This is consistent with history of diarrhea. There is also fluid in the vaginal wall which may be reflux from the urine. No bowel obstruction is noted. Left common iliac artery aneurysm measuring 2.0 cm.". Consulted with Dr. Paula who recommended Disease Case Manager review pt. Consulted with Dr. Whiting who will evaluate pt. Pt will be admitted to ICU. - Diagnoses Provider Diagnoses: Hypovolemia, Neutropenia, Diarrhea - Physician Notifications Discussed Care Of Patient With: Kvng Paula - oncology Time Discussed With Above Provider: 12:59 Instructed by Provider To: Other - Recommends the Disease Case Manager see pt - Critical Care Time Critical Care Time: 30-74 min - 60 min Discharge - Sign-Out/Discharge Documenting (check all that apply): Patient Departure - ADM ICU - Discharge Plan Condition: Fair Disposition: ADMITTED TO [facility] Referrals: Lorelei Pickett MD [Primary Care Provider] - - Attestation Statements Document Initiated by Scribe: Yes Documenting Scribe: Joey Garay Provider For Whom Scribe is Documenting (Include Credential): Dr. Alejandro Dominguez MD Scribe Attestation: Joey Kerr, scribed for Dr. Alejandro Dominguez MD on 02/10/18 at 1415. Consult Consult: 1301: Consult with Dr. Whiting, Disease Case Manager Will see pt in ED.
[2018-02-10] MEDS ORDERED: fentaNYL* 50 MCG/ML 2 ML VIAL (100 MCG VIAL) IV ONE (11:27)
[2018-02-10] MEDS: NS 0.9% 1000 ML* 2,000 ML IV ONE ×4 (11:29→16:17)
[2018-02-10] MEDS ORDERED: oxyCODONE/Acetamin 5/325 MG* TAB PO ONE (11:53)
[2018-02-10 12:16] LABS: INR 2.36 (0.77-1.02)
[2018-02-10 12:18] LABS: Hematocrit 18 % (35-47); Hemoglobin 6.2 g/dl (12.0-16.0); Mean Corpuscular HGB Conc 35 g/dl (31-36); Mean Corpuscular Hemoglobin 34 pg (27-31); Mean Corpuscular Volume 97 fL (80-97); Mean Platelet Volume 8.7 fL (7.4-10.4); Platelet Count 24 10^3/ul (150-450); Red Blood Count 1.83 10^6/ul (4.00-5.40); Red Cell Distribution Width 23 % (10.5-15); White Blood Count 0.7 10^3/ul (3.5-10.8)
[2018-02-10] MEDS ORDERED: Pantoprazole* 80 mg IN NS 80 MG/250 ML BAG IVPB ONE (12:23)
[2018-02-10] MEDS ORDERED: Pantoprazole IV* 40 MG IV ONE (12:23)
[2018-02-10 12:46] LABS: Monocytes % 16 % (0-7)
[2018-02-10 12:50] LABS: ABS Neutrophils 0.3 10^3/ul (1.5-7.7)
[2018-02-10] MEDS ORDERED: Iodixanol* (CONTRAST) 320 MG/ML 100 ML SDV IV ONE (12:59)
[2018-02-10] MEDS ORDERED: Spiriva Inhaler DEVICE* 1 EACH DEVICE SCH (14:00)
[2018-02-10] MEDS ORDERED: Spiriva Inhaler DEVICE* 1 EACH DEVICE INH SCH (14:00)
[2018-02-10] MEDS ORDERED: Magnesium Sulfate IV* 3 GM in NS 0.9% 100 ML* 100 ML IVPB ONE (15:30)
[2018-02-10] MEDS ORDERED: Ondansetron INJ* 2 MG/ML VIAL IV PRN (15:52)
[2018-02-10] MEDS: KCL 20 MEQ/100 ML IVPREMIX* 20 MEQ/100 ML BAG IV SCH ×2 (16:17→18:30)
[2018-02-10] MEDS ORDERED: Vancomycin(*) 1,000 MG in NS 0.9% 250 ML* 250 ML IVPB ONE (16:39)
[2018-02-10] MEDS ORDERED: Vancomycin(*) 2,000 MG in NS 0.9% 500 ML* 500 ML IVPB ONE ×2 (17:00→19:00)
[2018-02-10] MEDS ORDERED: Cefepime 2 GM in Dextrose(*) 2 GM/50 ML BAG IV SCH (17:30)
[2018-02-10] MEDS ORDERED: Rivaroxaban TAB(*) 20 MG TAB PO SCH (18:00)
[2018-02-10] MEDS ORDERED: Vancomycin per Pharmacy* NOTE FOLLOW UP PRN (18:18)
[2018-02-10] MEDS: Cefepime 2 GM in Dextrose(*) 2 GM/50 ML BAG IV SCH (18:30)
[2018-02-10] MEDS: Morphine VIAL* 4 MG/ML VIAL (1 ml vial) IV PRN (19:48)
[2018-02-10] MEDS: Montelukast Sodium TAB* 10 MG PO SCH (21:43)
[2018-02-10] MEDS: Mometasone/Formoter 200/5 MDI INH SCH (21:43)
[2018-02-10 22:44] LABS: ABS Neutrophils 0.5 10^3/ul (1.5-7.7); Hematocrit 24 % (35-47); Hemoglobin 8.2 g/dl (12.0-16.0); Mean Corpuscular HGB Conc 34 g/dl (31-36); Mean Corpuscular Hemoglobin 32 pg (27-31); Mean Corpuscular Volume 94 fL (80-97); Mean Platelet Volume 8.6 fL (7.4-10.4); Platelet Count 20 10^3/ul (150-450); Red Blood Count 2.54 10^6/ul (4.00-5.40); Red Cell Distribution Width 17 % (10.5-15); White Blood Count 0.7 10^3/ul (3.5-10.8)
[2018-02-10] MEDS ORDERED: Potassium Chlor TAB* 20 MEQ TAB.ER PO ONE (23:00)
[2018-02-10 23:13] LABS: EGFR Non-African American 47.5 (>60)
[2018-02-11] MEDS: Morphine VIAL* 4 MG/ML VIAL (1 ml vial) IV PRN ×3 (00:12→22:11)
[2018-02-11 02:17] LABS: ABS Basophils 0 10^3/ul (0-0.2); ABS Eosinophils 0 10^3/ul (0-0.6); ABS Lymphocytes 0.1 10^3/ul (1.0-4.8); ABS Monocytes 0.1 10^3/ul (0-0.8); ABS Nucleated RBC 0.1 10^3/ul; Eosinophil % 1.6 % (0-6); Lymphocyte % 15.3 % (25-47); Nucleated Red Blood Cells % 7.7
[2018-02-11 05:03] LABS: Hematocrit 22 % (35-47); Hemoglobin 7.5 g/dl (12.0-16.0); Mean Corpuscular HGB Conc 34 g/dl (31-36); Mean Corpuscular Hemoglobin 32 pg (27-31); Mean Corpuscular Volume 94 fL (80-97); Mean Platelet Volume 8.4 fL (7.4-10.4); Platelet Count 20 10^3/ul (150-450); Red Blood Count 2.33 10^6/ul (4.00-5.40); Red Cell Distribution Width 18 % (10.5-15); White Blood Count 1.1 10^3/ul (3.5-10.8)
[2018-02-11 05:59] LABS: Monocytes % 17 % (0-7)
[2018-02-11] MEDS: Omeprazole CAP* 20 MG PO SCH (06:13)
[2018-02-11] MEDS: Cefepime 2 GM in Dextrose(*) 2 GM/50 ML BAG IV SCH ×2 (06:13→18:23)
[2018-02-11 07:06] LABS: ABS Neutrophils 0.8 10^3/ul (1.5-7.7)
--- NOTE | 2018-02-11 08:39 | HP ---
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 The patient was recently admitted with febrile neutropenia, pna, and uti. She was discharged on 01/06. She was restarted on her chemotherapy. Over the last 4 days the patient has become increasingly weak. She has had a large amount of watery diarrhea. She denies any blood in her stool. She also has some abdominal discomfort and nausea. She denies any vomiting. She denies any hematemesis. The patient came to the ER and was found to be pancytopenic. She was started on iv hydration and 2 units of prbcs were ordered. She was borderline hypotensive. ROS - as per HPI PMHx - htn, hld, jonnie, asthma/copd, afib, chf ef 45%, locally advanced SCLC PSHx - carpal tunnel release, chest port All - clinda, codeine, egg, levaquin FamHx - denies SocHx - former smoker, no durgs, no etoh Home Meds Atorvastatin* [Lipitor 40 MG*] 40 mg PO QAM 11/09/14 [History Confirmed 02/10/18 ] Losartan TAB* [Cozaar TAB*] 100 mg PO QAM 11/09/14 [History Confirmed 02/10/18] Montelukast Sodium TAB* [Singulair 10 MG TAB*] 10 mg PO DAILY PRN 11/09/14 [ History Confirmed 02/10/18] EPINEPHrine [Epipen 2-Osmin] 0.3 mg IM ONCE PRN 11/02/15 [History Confirmed ] Albuterol Sulfate 0.63 mg IN Q6H PRN 01/11/17 [History Confirmed 02/10/18] Mometasone 220 MCG MDI * [Asmanex 220 MCG MDI *] 1 puff INH BID PRN 01/11/17 [ History Confirmed 02/10/18] Albuterol HFA INHALER* [Ventolin HFA Inhaler*] 1 - 2 puff INH Q4H PRN 09/17/17 [ History Confirmed 02/10/18] Budesonide/Formote 160/4.5(NF) [Symbicort 160/4.5 (NF)] 1 puff INH BID PRN 09/17 [History Confirmed 02/10/18] Cholecalciferol TAB* [Vitamin D TAB*] 1,000 unit PO QAM 09/17/17 [History Confirmed 02/10/18] Rivaroxaban TAB(*) [Xarelto 20 mg] 20 mg PO QPM 09/17/17 [History Confirmed ] Tiotropium CAP.INH* [Spiriva CAP.INH*] 1 cap.inh INH 1230 09/17/17 [History Confirmed 02/10/18] dilTIAZem 360 MG 24HR ER (NF) [Diltiazem 360 mg 24Hr ER] 360 mg PO QAM 09/17/17 [History Confirmed 02/10/18] Acetaminophen TAB* [Tylenol TAB*] 650 mg PO Q4H PRN tab 01/06/18 [Rx Confirmed 02/10/18] Magnesium Oxide TAB* [MagOx 400 TAB*] 400 mg PO TID #90 tab 01/06/18 [Rx Confirmed 02/10/18] Omeprazole CAP* [Prilosec CAP* 20 MG] 20 mg PO DAILY@0730 #30 cap.dr 01/06/18 [ Rx Confirmed 02/10/18] Potassium Chlor TAB* [Potassium Chlor TAB 20 MEQ*] 20 meq PO DAILY #30 tab.er [Rx Confirmed 02/10/18] Furosemide TAB* [Lasix TAB*] 20 mg PO DAILY 02/10/18 [History Confirmed 02/10/18 ] LevoCETirizine TAB (NF) [Xyzal TAB (NF)] 5 mg PO QAM 02/10/18 [History Confirmed 02/10/18] predniSONE TAB* [Deltasone TAB*] 5 mg PO DAILY 02/10/18 [History Confirmed 02/10] PE Vital Signs: Temp Pulse Resp BP Pulse Ox 98.7 F 115 23 115/55 94 02/10/18 11:11 02/10/18 12:00 02/10/18 12:01 02/10/18 11:40 02/10/18 12:00 Gen - chronically ill neck - no jvd, no thyromegaly cv - s1/s2, tachy, irregular lungs - cta, no wheeze abd - soft, mild tenderness ext - no cce neuro - non-focal Labs Laboratory Results - last 24 hr 02/10/18 02/10/18 02/10/18 11:56 11:57 11:57 WBC 0.7 L RBC 1.83 L Hgb 6.2 L* Hct 18 L MCV 97 MCH 34 H MCHC 35 RDW 23 H Plt Count 24 L MPV 8.7 Neut % (Auto) Not Reportable Lymph % (Auto) Not Reportable [place] % (Auto) Not Reportable Eos % (Auto) Not Reportable Baso % (Auto) Not Reportable Absolute Neuts (auto) Not Reportable Absolute Lymphs (auto) Not Reportable Absolute Monos (auto) Not Reportable Absolute Eos (auto) Not Reportable Absolute Basos (auto) Not Reportable Absolute Nucleated RBC Not Reportable Immature Gran % 11 H Neutrophils % 36 L Band Neutrophils % 10 H Lymphocytes % 36 Monocytes % 16 H Basophils % 1 Metamyelocytes % 1 Nucleated RBC % Not Reportable Abs Neuts (Manual) 0.3 L* Abs Lymphs (Manual) 0.3 L Abs Monocytes (Manual) 0.1 Nucleated RBCs/100 WBC 5 H Toxic Granulation 1+ Normal RBC Morphology Not Reportable Hypochromasia 2+ INR (Anticoag Therapy) 2.36 H APTT 29.2 Sodium 132 L Potassium 3.3 L Chloride 97 L Carbon Dioxide 23 Anion Gap 12 H BUN 32 H Creatinine 1.59 H Est GFR ( Amer) 38.7 Est GFR (Non-Af Amer) 32.0 BUN/Creatinine Ratio 20.1 H Glucose 131 H Lactic Acid Calcium 9.2 Total Bilirubin 1.10 H AST 323 H ALT 418 H Alkaline Phosphatase 65 Troponin I 0.07 H* Total Protein 6.3 L Albumin 3.4 Globulin 2.9 Albumin/Globulin Ratio 1.2 Blood Type Antibody Screen Crossmatch 02/10/18 02/10/18 11:57 11:57 WBC RBC Hgb Hct MCV MCH MCHC RDW Plt Count MPV Neut % (Auto) Lymph % (Auto) [place] % (Auto) Eos % (Auto) Baso % (Auto) Absolute Neuts (auto) Absolute Lymphs (auto) Absolute Monos (auto) Absolute Eos (auto) Absolute Basos (auto) Absolute Nucleated RBC Immature Gran % Neutrophils % Band Neutrophils % Lymphocytes % Monocytes % Basophils % Metamyelocytes % Nucleated RBC % Abs Neuts (Manual) Abs Lymphs (Manual) Abs Monocytes (Manual) Nucleated RBCs/100 WBC Toxic Granulation Normal RBC Morphology Hypochromasia INR (Anticoag Therapy) APTT Sodium Potassium Chloride Carbon Dioxide Anion Gap BUN Creatinine Est GFR ( Amer) Est GFR (Non-Af Amer) BUN/Creatinine Ratio Glucose Lactic Acid 3.2 H* Calcium Total Bilirubin AST ALT Alkaline Phosphatase Troponin I Total Protein Albumin Globulin Albumin/Globulin Ratio Blood Type O Negative Antibody Screen Negative Crossmatch See Detail Imaging CXR 02/10 IMPRESSION: #. Stigmata of chronic obstructive pulmonary disease. Mild linear atelectasis at the LEFT lung base. #. Cardiomegaly without compelling evidence for pulmonary edema. #. No conspicuous focal pulmonary lesions evident. 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 Pancytopenia. Transaminitis. Acute renal failure. Hyponatremia. Hypkalemia. Plan Neuro - pain control CV - htn, hld, afib, chf - hold antihypertensive until volume repleted - hold statin with transaminitis - hold xarelto for now Pulm - jonnie, copd - nebs q4h prn - c/w home inhalers - c/w singulair/xyzal - c/w prednisone 5mg daily ID - sepsis? - neutropenic but afebrile - check stool c diff/culture/ova and parasite - check blood cultures - check ua/uc - hold off on abx for now - iv hydration - serial lactates GI - diarrhea, transaminitis 1.) diarrhea - c diff vs typhilitis vs 2/[address] - [address] abd/pel pending - iv hydration - advance diet as tolerated 2.) transaminitis - ct abd/pel ordered Renal - heber, hyponatremia, hypokalemia - 2/2 volume depletion vs sepsis - replete electrolytes - monitor i/o - check urine lytes Heme - small cell lung cancer, pancytopenia - keep hgb > 7, plt > 10 - would benefit from palliative care consult - SCLC management per onc Endo - check fs, niss Lines - right chest port, piv PPx - gi/dvt Full Code Admit to ICU Critical Care Time: 70 mins
--- NOTE | 2018-02-11 08:59 | PN ---
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 pancytopenia. Diarrhea. Transaminitis. 02/11: Stool neg for c diff. Given 4L iv hydration and 2 units prbc. Vital Signs: Temp Pulse Resp BP SpO2 FiO2 97.1 F 96 24 133/81 95 92 02/11/18 08:00 02/11/18 08:00 02/11/18 08:00 02/11/18 06:01 02/11/18 08:00 02/10 16:00 Physical Exam: Gen - chronically ill neck - no jvd, no thyromegaly cv - s1/s2, tachy, irregular lungs - cta, no wheeze abd - soft, mild tenderness ext - no cce neuro - non-focal Fluid Balance (Past 24 Hours): I= O= Net Intake & Output 02/09/18 02/10/18 02/11/18 02/12/18 06:59 06:59 06:59 06:59 Intake Total 4089 Output Total 50 Balance 4039 Weight 125 kg Intake: IV Fluids 1872 Mag 108 NS 764 IVPB 53 NS 53 Medicated IV 764 cefapime 50 potassium 214 vanco 500 Oral 820 Whole Blood 305 Packed Cells 275 Output: Urine 50 Other: Date of Last Bowel 02/10 Movement # Bowel Movements 1 Estimated Stool Amount Small Labs: Laboratory Results - last 24 hr 02/10/18 02/10/18 02/10/18 11:56 11:57 11:57 WBC 0.7 L RBC 1.83 L Hgb 6.2 L* Hct 18 L MCV 97 MCH 34 H MCHC 35 RDW 23 H Plt Count 24 L MPV 8.7 Neut % (Auto) Not Reportable Lymph % (Auto) Not Reportable [place] % (Auto) Not Reportable Eos % (Auto) Not Reportable Baso % (Auto) Not Reportable Absolute Neuts (auto) Not Reportable Absolute Lymphs (auto) Not Reportable Absolute Monos (auto) Not Reportable Absolute Eos (auto) Not Reportable Absolute Basos (auto) Not Reportable Absolute Nucleated RBC Not Reportable Immature Gran % 11 H Neutrophils % 36 L Band Neutrophils % 10 H Lymphocytes % 36 Monocytes % 16 H Basophils % 1 Metamyelocytes % 1 Blast Cells % Nucleated RBC % Not Reportable Abs Neuts (Manual) 0.3 L* Abs Lymphs (Manual) 0.3 L Abs Monocytes (Manual) 0.1 Nucleated RBCs/100 WBC 5 H Toxic Granulation 1+ Normal RBC Morphology Not Reportable Polychromasia Hypochromasia 2+ Microcytosis Elliptocytes INR (Anticoag Therapy) 2.36 H APTT 29.2 Sodium 132 L Potassium 3.3 L Chloride 97 L Carbon Dioxide 23 Anion Gap 12 H BUN 32 H Creatinine 1.59 H Est GFR ( Amer) 38.7 Est GFR (Non-Af Amer) 32.0 BUN/Creatinine Ratio 20.1 H Glucose 131 H Serum Osmolality Lactic Acid Calcium 9.2 Phosphorus Magnesium 1.6 L Total Bilirubin 1.10 H Direct Bilirubin Indirect Bilirubin AST 323 H ALT 418 H Alkaline Phosphatase 65 Troponin I 0.07 H* Total Protein 6.3 L Albumin 3.4 Globulin 2.9 Albumin/Globulin Ratio 1.2 Blood Type Antibody Screen Crossmatch 02/10/18 02/10/18 02/10/18 11:57 11:57 11:57 WBC RBC Hgb Hct MCV MCH MCHC RDW Plt Count MPV Neut % (Auto) Lymph % (Auto) [place] % (Auto) Eos % (Auto) Baso % (Auto) Absolute Neuts (auto) Absolute Lymphs (auto) Absolute Monos (auto) Absolute Eos (auto) Absolute Basos (auto) Absolute Nucleated RBC Immature Gran % Neutrophils % Band Neutrophils % Lymphocytes % Monocytes % Basophils % Metamyelocytes % Blast Cells % Nucleated RBC % Abs Neuts (Manual) Abs Lymphs (Manual) Abs Monocytes (Manual) Nucleated RBCs/100 WBC Toxic Granulation Normal RBC Morphology Polychromasia Hypochromasia Microcytosis Elliptocytes INR (Anticoag Therapy) APTT Sodium Potassium Chloride Carbon Dioxide Anion Gap BUN Creatinine Est GFR ( Amer) Est GFR (Non-Af Amer) BUN/Creatinine Ratio Glucose Serum Osmolality 283 Lactic Acid 3.2 H* Calcium Phosphorus Magnesium Total Bilirubin Direct Bilirubin Indirect Bilirubin AST ALT Alkaline Phosphatase Troponin I Total Protein Albumin Globulin Albumin/Globulin Ratio Blood Type O Negative Antibody Screen Negative Crossmatch See Detail 02/10/18 02/10/18 02/10/18 22:06 22:06 22:06 WBC 0.7 L RBC 2.54 L Hgb 8.2 L Hct 24 L MCV 94 MCH 32 H MCHC 34 RDW 17 H Plt Count 20 L MPV 8.6 Neut % (Auto) 63.4 Lymph % (Auto) 15.3 L [place] % (Auto) 19.2 H Eos % (Auto) 1.6 Baso % (Auto) 0.5 Absolute Neuts (auto) 0.5 L* Absolute Lymphs (auto) 0.1 L Absolute Monos (auto) 0.1 Absolute Eos (auto) 0 Absolute Basos (auto) 0 Absolute Nucleated RBC 0.1 Immature Gran % Neutrophils % Band Neutrophils % Lymphocytes % Monocytes % Basophils % Metamyelocytes % Blast Cells % Nucleated RBC % 7.7 Abs Neuts (Manual) Abs Lymphs (Manual) Abs Monocytes (Manual) Nucleated RBCs/100 WBC Toxic Granulation Normal RBC Morphology Polychromasia Hypochromasia Microcytosis Elliptocytes INR (Anticoag Therapy) APTT Sodium 135 Potassium 3.1 L Chloride 105 Carbon Dioxide 21 L Anion Gap 9 BUN 25 H Creatinine 1.13 H Est GFR ( Amer) 57.4 Est GFR (Non-Af Amer) 47.5 BUN/Creatinine Ratio 22.1 H Glucose 111 H Serum Osmolality Lactic Acid 1.2 Calcium 8.7 Phosphorus Magnesium 2.2 Total Bilirubin 1.70 H Direct Bilirubin 0.60 H Indirect Bilirubin 1.1 H AST 439 H ALT 570 H Alkaline Phosphatase 66 Troponin I Total Protein 6.1 L Albumin 3.3 Globulin 2.8 Albumin/Globulin Ratio 1.2 Blood Type Antibody Screen Crossmatch 02/11/18 02/11/18 04:30 04:30 WBC 1.1 L RBC 2.33 L Hgb 7.5 L Hct 22 L MCV 94 MCH 32 H MCHC 34 RDW 18 H Plt Count 20 L MPV 8.4 Neut % (Auto) [employer] Lymph % (Auto) [employer] [place] % (Auto) [employer] Eos % (Auto) [employer] Baso % (Auto) [employer] Absolute Neuts (auto) [employer] Absolute Lymphs (auto) [employer] Absolute Monos (auto) [employer]eman Absolute Eos (auto) [employer]eman Absolute Basos (auto) [employer]eman Absolute Nucleated RBC [employer]eman Immature Gran % 1 Neutrophils % 71 Band Neutrophils % Lymphocytes % 10 L Monocytes % 17 H Basophils % Metamyelocytes % 1 Blast Cells % 1 H* Nucleated RBC % [employer]eman Abs Neuts (Manual) 0.8 L* Abs Lymphs (Manual) 0.1 L Abs Monocytes (Manual) 0.2 Nucleated RBCs/100 WBC 4 H Toxic Granulation Normal RBC Morphology Not Reportable Polychromasia 1+ Hypochromasia Microcytosis 2+ Elliptocytes 1+ INR (Anticoag Therapy) APTT Sodium 134 L Potassium 3.3 L Chloride 107 Carbon Dioxide 18 L Anion Gap 9 BUN 24 Creatinine 1.12 H Est GFR ( Amer) 58.0 Est GFR (Non-Af Amer) 48.0 BUN/Creatinine Ratio 21.4 H Glucose 111 H Serum Osmolality Lactic Acid Calcium 8.4 L Phosphorus 3.1 Magnesium 2.1 Total Bilirubin 1.10 H Direct Bilirubin 0.40 H Indirect Bilirubin 0.7 AST 243 H ALT 478 H Alkaline Phosphatase 63 Troponin I 0.07 H* Total Protein 5.6 L Albumin 3.0 L Globulin 2.6 Albumin/Globulin Ratio 1.2 Blood Type Antibody Screen Crossmatch Studies: CXR 02/10 IMPRESSION: #. Stigmata of chronic obstructive pulmonary disease. Mild linear atelectasis at the LEFT lung base. #. Cardiomegaly without compelling evidence for pulmonary edema. #. No conspicuous focal pulmonary lesions evident. CT abd/pel 02/11 IMPRESSION: There is dilated gallbladder with suggestion of some noncalcified gallstones in the neck of the gallbladder. The possibility of cholecystitis should BE considered. Pericholecystic infiltration of fat is noted. Likely left renal cyst. Fluid is present throughout the colon. This is consistent with history of diarrhea. There is also fluid in the vaginal wall which may be reflux from the urine. Abd US 02/11 IMPRESSION: 1. HEPATOMEGALY WITH FATTY INFILTRATION OF THE LIVER. 2. THERE IS INTRAHEPATIC AND EXTRAHEPATIC BILIARY DILATATION. 3. THERE IS MILD GALLBLADDER WALL THICKENING WITH A SMALL AMOUNT OF PERICHOLECYSTIC FLUID, WITHOUT SONOGRAPHIC HICKS SIGN OR APPRECIABLE CHOLELITHIASIS. THE IMAGING FEATURES ARE INDETERMINATE FOR ACUTE CHOLECYSTITIS. Impression: 72F with htn, hld, jonnie, asthma/copd, afib, chf ef 45%, locally advanced SCLC on chemo and radiation presents with weakness and diarrhea. Pancytopenia. Transaminitis. Acute renal failure. Hyponatremia. Hypokalemia. Plan: Neuro - pain control CV - htn, hld, afib, chf - restart diltiazem - hold statin with transaminitis - hold xarelto for now Pulm - jonnie, copd - nebs q4h prn - c/w home inhalers - c/w singulair/xyzal - c/w prednisone 5mg daily ID - sepsis? - neutropenic but afebrile - check stool c diff/culture/ova and parasite - check blood cultures - check ua/uc - RUQ sono indeterminant for cholecystitis - on vanc/cefepime/flagyl - iv hydration - serial lactates GI - diarrhea, transaminitis 1.) diarrhea - typhilitis vs 2/2 chemotherapy - c diff negative - iv hydration 2.) transaminitis - RUQ sono indeterminant for cholecystitis - send for HIDA scan - Surgery eval - may need perc cholecystostomy tube Renal - heber, hyponatremia, hypokalemia - 2/2 volume depletion and sepsis - replete electrolytes - monitor i/o - check urine lytes Heme - small cell lung cancer, pancytopenia - keep hgb > 7, plt > 10 - would benefit from palliative care consult - SCLC management per onc Endo - check fs, niss Lines - right chest port, piv PPx - gi/dvt Full Code Critical Care Time: 60 mins
[2018-02-11] MEDS: KCL 20 MEQ/100 ML IVPREMIX* 20 MEQ/100 ML BAG IV SCH ×3 (09:23→11:45)
[2018-02-11] MEDS: Vancomycin(*) 1,250 MG in NS 0.9% 250 ML* 250 ML IVPB SCH ×2 (09:24→19:14)
[2018-02-11] MEDS: Cholecalciferol TAB* 1000 UNITS PO SCH (09:31)
[2018-02-11] MEDS: predniSONE TAB* 5 MG PO SCH (09:31)
[2018-02-11] MEDS: Cetirizine* 10 MG TAB PO SCH (09:31)
[2018-02-11] MEDS: Diltiazem CD CAP* 180 MG PO SCH (09:37)
[2018-02-11] MEDS: Tiotropium CAP.INH* CAP.INH/18 MCG (USE ORDER SET !) INH SCH (09:56)
[2018-02-11] MEDS: Mometasone/Formoter 200/5 MDI INH SCH ×2 (09:56→21:08)
--- NOTE | 2018-02-11 10:14 | PN ---
Progress Note - Progress Note Date of Service: 02/11/18 SOAP: Subjective: []Admitted ti ICU yesterday evening with severe weakness and diarrhea resulting in HAZEL and marked electrolyte abnormalities. No big change today. Notes diarrhea started 4 days ago and has been persistent. Abd. is tender throughout and has been progressively weak. "I was so weak I didn't take any of my meds or eat for 2 days." Has a cough and easily SOB though no marked changed. History of COPD and has been on steroids for exacerbation 3 weeks ago. Persistent dizziness without BAUTISTA or vision changes. Chronic back pain progressive recently. No chest pain/pressure Admitted after C3 with neutropenic fever (urinary source), C4 delayed and dose reduced by 20% tolerated very well. C5 Carboplatin/Etoposide with 20% dose reduction 01/29- Medications: Albuterol/Ipratropium (Duoneb (Albuterol 2.5 Mg/Ipratropium 0.5 Mg)) 1 neb INH Q4H PRN PRN Reason: SOB/WHEEZING Cetirizine HCl (Zyrtec*) 10 mg PO DAILY [facility] Last Admin: 02/11/18 09:31 Dose: 10 mg Cholecalciferol (Vitamin D Tab*) 1,000 units PO DAILY [facility] Last Admin: 02/11/18 09:31 Dose: 1,000 units Device (Tiotropium Inhaler Device*) 1 each .SEE ORDER .USE w/ SPIRIVA CAPS [facility] Diltiazem HCl (Cardizem Cd Cap*) 360 mg PO DAILY [facility] Last Admin: 02/11/18 09:37 Dose: 360 mg Cefepime HCl (Maxipime 2 Gm In Dextrose Duplex (*)) 2 gm in 50 mls @ 100 mls/ hr IV 0630,1830 [facility] Last Admin: 02/11/18 06:13 Dose: 100 mls/hr Vancomycin HCl 1,250 mg/ (Sodium Chloride) 250 mls @ 166.667 mls/hr IVPB Q12H [facility] Last Admin: 02/11/18 09:24 Dose: 166.667 mls/hr Potassium Chloride (Potassium Chloride 20 Meq/100 Ml Ivpremix*) 20 meq in 100 mls @ 50 mls/hr IV Q2H [facility] Stop: 02/11/18 14:59 Last Admin: 02/11/18 09:23 Dose: 50 mls/hr Metronidazole/Sodium Chloride (Flagyl 500 Mg Ivpb*) 500 mg in 100 mls @ 100 mls /hr IVPB Q8H [facility] Mometasone Furoate/Formoterol Fumar (Dulera 200/5 Mdi*) 2 puff INH BID [facility]; Protocol Last Admin: 02/11/18 09:56 Dose: 2 puff Montelukast Sodium (Singulair Tab*) 10 mg PO BEDTIME [facility] Last Admin: 02/10/18 21:43 Dose: 10 mg Morphine Sulfate (Morphine Vial*) 1 mg IV Q4H PRN PRN Reason: PAIN Last Admin: 02/11/18 00:12 Dose: 1 mg Omeprazole (Prilosec Cap*) 20 mg PO DAILY@0600 [facility] Last Admin: 02/11/18 06:13 Dose: 20 mg Ondansetron HCl (Zofran Inj*) 4 mg IV Q6H PRN PRN Reason: NAUSEA Pharmacy Consult (Vancomycin Per Pharmacy*) 1 note FOLLOW UP . PRN PRN Reason: PER PROTOCOL Pharmacy Profile Note (Vancomycin Trough Check) 1 note FOLLOW UP .ENTER TIME ONE Stop: 02/12/18 07:31 Prednisone (Deltasone Tab*) 5 mg PO DAILY [facility] Last Admin: 02/11/18 09:31 Dose: 5 mg Tiotropium Animas (Spiriva Cap.Inh*) 1 cap INH DAILY [facility] Last Admin: 02/11/18 09:56 Dose: 1 cap Objective: [] Vital Signs Temp Pulse Resp BP Pulse Ox 97.1 F 109 25 149/72 90 02/11/18 08:00 02/11/18 10:00 02/11/18 10:00 02/11/18 09:39 02/11/18 10:00 A&Ox3, EOMI, neuro grossly non-focal HRI, distant heart sounds, A.Fib on tele LS with rhonchi to bases, harsh wet cough, mild tachypnea +BS, abd. round, distended and tender throughout neg. rebound tenderness and no point tenderness non-specific bates's sign tymphany throughout Laboratory Results - last 24 hr 02/10/18 02/10/18 02/10/18 11:56 11:57 11:57 WBC 0.7 L RBC 1.83 L Hgb 6.2 L* Hct 18 L MCV 97 MCH 34 H MCHC 35 RDW 23 H Plt Count 24 L MPV 8.7 Neut % (Auto) Not Reportable Lymph % (Auto) Not Reportable [place] % (Auto) Not Reportable Eos % (Auto) Not Reportable Baso % (Auto) Not Reportable Absolute Neuts (auto) Not Reportable Absolute Lymphs (auto) Not Reportable Absolute Monos (auto) Not Reportable Absolute Eos (auto) Not Reportable Absolute Basos (auto) Not Reportable Absolute Nucleated RBC Not Reportable Immature Gran % 11 H Neutrophils % 36 L Band Neutrophils % 10 H Lymphocytes % 36 Monocytes % 16 H Basophils % 1 Metamyelocytes % 1 Blast Cells % Nucleated RBC % Not Reportable Abs Neuts (Manual) 0.3 L* Abs Lymphs (Manual) 0.3 L Abs Monocytes (Manual) 0.1 Nucleated RBCs/100 WBC 5 H Toxic Granulation 1+ Normal RBC Morphology Not Reportable Polychromasia Hypochromasia 2+ Microcytosis Elliptocytes INR (Anticoag Therapy) 2.36 H APTT 29.2 Sodium 132 L Potassium 3.3 L Chloride 97 L Carbon Dioxide 23 Anion Gap 12 H BUN 32 H Creatinine 1.59 H Est GFR ( Amer) 38.7 Est GFR (Non-Af Amer) 32.0 BUN/Creatinine Ratio 20.1 H Glucose 131 H Serum Osmolality Lactic Acid Calcium 9.2 Phosphorus Magnesium 1.6 L Total Bilirubin 1.10 H Direct Bilirubin Indirect Bilirubin AST 323 H ALT 418 H Alkaline Phosphatase 65 Troponin I 0.07 H* Total Protein 6.3 L Albumin 3.4 Globulin 2.9 Albumin/Globulin Ratio 1.2 Vancomycin Trough Blood Type Antibody Screen Crossmatch 02/10/18 02/10/18 02/10/18 11:57 11:57 11:57 WBC RBC Hgb Hct MCV MCH MCHC RDW Plt Count MPV Neut % (Auto) Lymph % (Auto) [place] % (Auto) Eos % (Auto) Baso % (Auto) Absolute Neuts (auto) Absolute Lymphs (auto) Absolute Monos (auto) Absolute Eos (auto) Absolute Basos (auto) Absolute Nucleated RBC Immature Gran % Neutrophils % Band Neutrophils % Lymphocytes % Monocytes % Basophils % Metamyelocytes % Blast Cells % Nucleated RBC % Abs Neuts (Manual) Abs Lymphs (Manual) Abs Monocytes (Manual) Nucleated RBCs/100 WBC Toxic Granulation Normal RBC Morphology Polychromasia Hypochromasia Microcytosis Elliptocytes INR (Anticoag Therapy) APTT Sodium Potassium Chloride Carbon Dioxide Anion Gap BUN Creatinine Est GFR ( Amer) Est GFR (Non-Af Amer) BUN/Creatinine Ratio Glucose Serum Osmolality 283 Lactic Acid 3.2 H* Calcium Phosphorus Magnesium Total Bilirubin Direct Bilirubin Indirect Bilirubin AST ALT Alkaline Phosphatase Troponin I Total Protein Albumin Globulin Albumin/Globulin Ratio Vancomycin Trough Blood Type O Negative Antibody Screen Negative Crossmatch See Detail 02/10/18 02/10/18 02/10/18 22:06 22:06 22:06 WBC 0.7 L RBC 2.54 L Hgb 8.2 L Hct 24 L MCV 94 MCH 32 H MCHC 34 RDW 17 H Plt Count 20 L MPV 8.6 Neut % (Auto) 63.4 Lymph % (Auto) 15.3 L [place] % (Auto) 19.2 H Eos % (Auto) 1.6 Baso % (Auto) 0.5 Absolute Neuts (auto) 0.5 L* Absolute Lymphs (auto) 0.1 L Absolute Monos (auto) 0.1 Absolute Eos (auto) 0 Absolute Basos (auto) 0 Absolute Nucleated RBC 0.1 Immature Gran % Neutrophils % Band Neutrophils % Lymphocytes % Monocytes % Basophils % Metamyelocytes % Blast Cells % Nucleated RBC % 7.7 Abs Neuts (Manual) Abs Lymphs (Manual) Abs Monocytes (Manual) Nucleated RBCs/100 WBC Toxic Granulation Normal RBC Morphology Polychromasia Hypochromasia Microcytosis Elliptocytes INR (Anticoag Therapy) APTT Sodium 135 Potassium 3.1 L Chloride 105 Carbon Dioxide 21 L Anion Gap 9 BUN 25 H Creatinine 1.13 H Est GFR ( Amer) 57.4 Est GFR (Non-Af Amer) 47.5 BUN/Creatinine Ratio 22.1 H Glucose 111 H Serum Osmolality Lactic Acid 1.2 Calcium 8.7 Phosphorus Magnesium 2.2 Total Bilirubin 1.70 H Direct Bilirubin 0.60 H Indirect Bilirubin 1.1 H AST 439 H ALT 570 H Alkaline Phosphatase 66 Troponin I Total Protein 6.1 L Albumin 3.3 Globulin 2.8 Albumin/Globulin Ratio 1.2 Vancomycin Trough Blood Type Antibody Screen Crossmatch 02/11/18 02/11/18 02/11/18 04:30 04:30 07:59 WBC 1.1 L RBC 2.33 L Hgb 7.5 L Hct 22 L MCV 94 MCH 32 H MCHC 34 RDW 18 H Plt Count 20 L MPV 8.4 Neut % (Auto) [employer] Lymph % (Auto) [employer] [place] % (Auto) [employer] Eos % (Auto) [employer] [employer] Baso % (Auto) [employer] [employer] Absolute Neuts (auto) [place] [employer] Absolute Lymphs (auto) [employer] [employer] Absolute Monos (auto) [place] [employer] Absolute Eos (auto) [place] [employer] Absolute Basos (auto) [place] [employer] Absolute Nucleated RBC [employer] Immature Gran % 1 Neutrophils % 71 Band Neutrophils % Lymphocytes % 10 L Monocytes % 17 H Basophils % Metamyelocytes % 1 Blast Cells % 1 H* Nucleated RBC % [place] [employer] Abs Neuts (Manual) 0.8 L* Abs Lymphs (Manual) 0.1 L Abs Monocytes (Manual) 0.2 Nucleated RBCs/100 WBC 4 H Toxic Granulation Normal RBC Morphology Not Reportable Polychromasia 1+ Hypochromasia Microcytosis 2+ Elliptocytes 1+ INR (Anticoag Therapy) APTT Sodium 134 L Potassium 3.3 L Chloride 107 Carbon Dioxide 18 L Anion Gap 9 BUN 24 Creatinine 1.12 H Est GFR ( Amer) 58.0 Est GFR (Non-Af Amer) 48.0 BUN/Creatinine Ratio 21.4 H Glucose 111 H Serum Osmolality Lactic Acid Calcium 8.4 L Phosphorus 3.1 Magnesium 2.1 Total Bilirubin 1.10 H Direct Bilirubin 0.40 H Indirect Bilirubin 0.7 AST 243 H ALT 478 H Alkaline Phosphatase 63 Troponin I 0.07 H* Total Protein 5.6 L Albumin 3.0 L Globulin 2.6 Albumin/Globulin Ratio 1.2 Vancomycin Trough 10.3 Blood Type Antibody Screen Crossmatch MRI of brain 01/30 neg. for mets, +mastoid effusion MRI T/L spine 01/30 with T8 compression fx., DJD and OA with mild narrowing, no evidence for bone mets Assessment: []72 yo female with limited stage SCLC on Carboplatin/Etoposide s/p C5 admitted with lactic acidosis appearing secondary to significant dehydration related to severe diarrhea, improving slowly with supportive measures. At this time there is no infection source, however I compeletly agree with abx. coverage with Cefepime and Flagyl. Plan: []HAZEL: secondary to dehydration - cont. 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 abx. as per rubber and plastics worker - cultures ordered - agree with ID consult Transaminitis: unclear cause at this time - small risk with chemo (Carb can cause inc. alk phos and AST in approx. 20% of pt., etop <3% hepatitis per [email or web address]) - agree with gallbladder work-up Pancytopenia: Chemotherapy induced - day 14 today therefore in [place], expect recovery over next 7 days though with Carboplatin can be prolonged - cont. neutropenic precautions - consider transfusion for hmg <8 d/t cardio/pulmonary demand - transfuse plt. <10 or bleeding SOB: likely r/t COPD, however will need to monitor closely - has been on steroids recently and with chemo risk for PCP, fortunately no evidence of hypoxia A.Fib: stable - cont. tele, cont. cardiac meds - trop. elevation likely r/t demand ischemia - mild elevation in BNP in Dec., consider echo SCLC: - completed RT 01/08, s/p C5 Carbo/Etoposide with dose reduction as above - depending on recovery may hold further chemotherapy and pursue PET restaging as outpatient but will cont. to re-evaluate during admission DVT prophylaxis: recommend SCDs - no medication d/t thrombocytopenia Appreciate rubber and plastics worker management, Onc. to take over once stable for transfer to tele unit
[2018-02-11 10:28] LABS: Urine Appearance Turbid; Urine Blood 3+ (Negative); Urine Color Amber; Urine Ketones Negative (Negative); Urine Protein 1+(30 mg/dL) (Negative); Urine Red Blood Cell 3+(>10/hpf) (Absent); Urine Specific Gravity 1.035 (1.010-1.030); Urine Urobilinogen Negative (Negative); Urine White Blood Cell Trace(0-5/hpf) (Absent)
[2018-02-11] MEDS: metroNIDAZOLE IV 500 MG/100ML* 500 MG/100 ML BAG IVPB SCH ×2 (10:36→17:04)
[2018-02-11] MEDS ORDERED: Digoxin IV* 0.5 MG/2 ML AMP (0.25 MG/ML) IV ONE (17:40)
[2018-02-11] MEDS ORDERED: Metoprolol Tartrate IV* 1 MG/ML 5 ML VIAL IV ONE (17:40)
[2018-02-11] MEDS ORDERED: Digoxin IV* 0.5 MG/2 ML AMP (0.25 MG/ML) ONE (17:47)
[2018-02-11] MEDS ORDERED: Metoprolol Tartrate IV* 1 MG/ML 5 ML VIAL ONE (17:47)
[2018-02-11 18:09] LABS: EGFR Non-African American 38.7 (>60)
[2018-02-11] MEDS: Montelukast Sodium TAB* 10 MG PO SCH (21:25)
--- NOTE | 2018-02-11 22:34 | CONS ---
CONSULTATION REPORT: DATE OF CONSULT: 02/11/18 REQUESTING PHYSICIAN: Dr. Whiting. CONSULTING SERVICE: Infectious Disease. REASON FOR CONSULT: Neutropenia and transaminitis. IMPRESSION: 1. Chemotherapy-related neutropenia, which is improving. ANC today is 800. No fever. Does have transaminitis, had diarrhea. No respiratory infection. 2. Small cell lung cancer, treated with radiation and chemotherapy, right chest port. Blood cultures negative at 24 hours. 3. Obesity. 4. Atrial fibrillation with rapid ventricular response. RECOMMENDATIONS: Agree with broad-spectrum antibiotics while awaiting cell count recovery and assuming that is a continued case, would next stop vancomycin when ANC is over 1000 and blood cultures are negative at 48 hours. Given GI component and diffuse GI symptoms, we will plan on course of cefepime and Flagyl unless another particular etiology is found. Stool cultures are pending. She does not have as much right lower quadrant tenderness , typhlitis seems a little less likely. HISTORY OF PRESENT ILLNESS: This is a 72-year-old woman with chemotherapy for lung cancer, had neutropenic fever in December, had done well since, and is neutropenic again, was admitted with an ANC of 300 on the 02/10/18. At that time, she had weakness after some diarrhea at home, which was frequent. C diff testing here was negative. Stool cultures are pending. She has not had a blood in her stool, but had some abdominal pain and vomiting. She had hydration and broad-spectrum antibiotics started in the ER. Her ANC is up to 800 today. She has been afebrile here, hemodynamically stable. She is tachycardic now, in atrial fibrillation. She had transaminitis, which was new. She had CT abdomen and pelvis and HIDA scan, which did not suggest acute cholecystitis. She has diffuse abdominal tenderness with palpation, none at rest. She does fell a little bit bloated and has had some liquid stools today. PAST MEDICAL HISTORY: 1. Small cell lung cancer, treated with chemotherapy and radiation. 2. Obesity. 3. Hypertension. 4. Hyperlipidemia. 5. Obstructive sleep apnea. 6. Asthma and COPD. 7. Atrial fibrillation. ALLERGIES: CLINDAMYCIN, CODEINE, LEVOFLOXACIN. MEDICATIONS: 1. Cefepime 2 g every 12 hours. 2. Cetirizine. 3. Cholecalciferol. 4. Fentanyl. 5. Diltiazem. 6. Flagyl 500 mg every 8 hours. 7. Zofran as needed. 8. Omeprazole. 9. Prednisone 5 mg a day. 10. Vancomycin 1250 mg every 12 hours. SOCIAL HISTORY: Lives with her in [place]. No sick contacts. FAMILY HISTORY: No recurrent infections. REVIEW OF SYSTEMS: A 14-point review is negative except as noted above. PHYSICAL EXAM: Vital Signs: Temperature is 36, heart rate 90, respiratory rate 20, blood pressure 151/59, oxygen saturation 96% on 4 L by nasal cannula. In general, she is awake and not in distress. Neurologic: She is oriented x3. Follows all commands. HEENT: There is no conjunctival hemorrhage. Oropharynx without lesions. Neck is supple without mass. Heart is regular rate and rhythm without murmurs, rubs, or gallops. Lungs: Clear to auscultation bilaterally. Abdomen is soft, mildly distended. There are bowel sounds present. There is diffuse tenderness to palpation without rebound. Skin: There is no rash or splinter hemorrhages. Musculoskeletal: There is no spine tenderness to palpation. DIAGNOSTIC STUDIES/LAB DATA: White blood cell count 1.1, hemoglobin 7.5, platelets 20, creatinine is 1.1, bilirubin 1.1. AST is 243, down from 439. ALT is 478. Troponin is 0.07. Please see impressions and recommendations outlined above. Thanks for asking me to see Ms. Giraldo in consultation. [id number]/[facility] #: [id number] MTDD
[2018-02-12] MEDS: metroNIDAZOLE IV 500 MG/100ML* 500 MG/100 ML BAG IVPB SCH ×3 (02:18→16:30)
[2018-02-12] MEDS: Omeprazole CAP* 20 MG PO SCH (04:52)
[2018-02-12] MEDS: Morphine VIAL* 4 MG/ML VIAL (1 ml vial) IV PRN ×3 (04:52→20:06)
[2018-02-12] MEDS: Cefepime 2 GM in Dextrose(*) 2 GM/50 ML BAG IV SCH ×2 (04:55→18:44)
[2018-02-12 05:05] LABS: Hematocrit 20 % (35-47); Hemoglobin 6.9 g/dl (12.0-16.0); Mean Corpuscular HGB Conc 34 g/dl (31-36); Mean Corpuscular Hemoglobin 32 pg (27-31); Mean Corpuscular Volume 94 fL (80-97); Mean Platelet Volume 8.5 fL (7.4-10.4); Platelet Count 19 10^3/ul (150-450); Red Blood Count 2.15 10^6/ul (4.00-5.40); Red Cell Distribution Width 18 % (10.5-15); White Blood Count 2.7 10^3/ul (3.5-10.8)
[2018-02-12 05:16] LABS: EGFR Non-African American 28.8 (>60)
[2018-02-12 05:44] LABS: Monocytes % 12 % (0-7)
[2018-02-12 06:06] LABS: ABS Neutrophils 2.2 10^3/ul (1.5-7.7)
[2018-02-12] MEDS ORDERED: Vancomycin Trough Check NOTE FOLLOW UP ONE (07:30)
[2018-02-12] MEDS: predniSONE TAB* 5 MG PO SCH (07:32)
[2018-02-12] MEDS: Cholecalciferol TAB* 1000 UNITS PO SCH (07:32)
[2018-02-12] MEDS: Diltiazem CD CAP* 180 MG PO SCH (07:32)
[2018-02-12] MEDS: Cetirizine* 10 MG TAB PO SCH (07:32)
[2018-02-12] MEDS: Vancomycin(*) 1,250 MG in NS 0.9% 250 ML* 250 ML IVPB SCH (10:50)
[2018-02-12] MEDS: Tiotropium CAP.INH* CAP.INH/18 MCG (USE ORDER SET !) INH SCH (11:58)
[2018-02-12] MEDS: Mometasone/Formoter 200/5 MDI INH SCH ×2 (11:58→19:40)
[2018-02-12 12:09] LABS: Hematocrit 20 % (35-47)
--- NOTE | 2018-02-12 14:07 | PN ---
Date of Service: 02/12/18 Critical Care Services: Up in chair and breathing comfortably. ID consult appreciated. Serum Hb = 6.9 after 2 units packed RBCs, but no evidence for active bleeding. Has been afebrile, and all cultures negative to date. Absolute neutrophil count today > 2 ,000 Vital Signs: Temp Pulse Resp BP SpO2 FiO2 97 F 73 19 116/51 97 97 Physical Exam: Gen:Alert, oriented. Up in a chair. Lungs:Rhonchi both sides. No wheezing or crackles Extremities:No cyanosis. 1+edema. Fluid Balance (Past 24 Hours): 02/11/18 02/12/18 06:59 06:59 Intake Total 4089 2076 Output Total 50 180 Balance 4039 1896 Weight 275 lb 274 lb Intake: IV Fluids 1872 1396 Mag 108 NS 764 1396 IVPB 53 NS 53 Medicated IV 764 cefapime 50 potassium 214 vanco 500 Oral 820 680 Whole Blood 305 Packed Cells 275 Output: Urine 50 180 Other: Estimated Void Small Date of Last Bowel 02/10 Movement # Bowel Movements 1 1 Estimated Stool Amount Small Medium # Voids 1 Labs: 02/11/18 02/11/18 02/11/18 04:30 04:30 17:45 Sodium 135 Potassium 4.1 Chloride 109 Carbon Dioxide 19 L Anion Gap 7 BUN 26 Creatinine 1.35 Glucose 143 H Calcium 8.9 Magnesium 2.0 Total Bilirubin Direct Bilirubin Indirect Bilirubin AST ALT Alkaline Phosphatase Total Protein Albumin Globulin Albumin/Globulin Ratio Vancomycin Trough Hepatitis A IgM Ab Nonreactive Hep Bs Antigen Nonreactive Hep B Core IgM Ab Nonreactive Hepatitis C Antibody Nonreactive Hepatitis C Ab Index < 0.0 02/12/18 02/12/18 02/12/18 04:45 04:45 07:36 WBC 2.7 Hgb 6.9 Hct 20 L MCV 94 MCH 32 H MCHC 34 RDW 18 H Plt Count 19 L* Immature Gran % 6 Neutrophils % 75 Band Neutrophils % 6 Lymphocytes % 7 L Monocytes % 12 H Nucleated RBC % Not Reportable Abs Neuts (Manual) 2.2 Abs Lymphs (Manual) 0.2 Abs Monocytes (Manual) 0.3 Nucleated RBCs/100 WBC 1 H Toxic Granulation 2+ Dohle Bodies Present Normal RBC Morphology Hem Pathologist Commnt Sodium 134 L Potassium 3.9 Chloride 109 Carbon Dioxide 20 L Anion Gap 5 BUN 33 H Creatinine 1.74 H Est GFR ( Amer) 34.9 Est GFR (Non-Af Amer) 28.8 BUN/Creatinine Ratio 19.0 Glucose 136 H Calcium 9.0 Magnesium 2.1 Total Bilirubin 0.50 Direct Bilirubin 0.20 H Indirect Bilirubin 0.3 AST 99 H ALT 406 H Alkaline Phosphatase 76 Total Protein 5.5 L Albumin 2.8 L Globulin 2.7 Albumin/Globulin Ratio 1.0 Vancomycin Trough 19.3 Hepatitis A IgM Ab Hep Bs Antigen Hep B Core IgM Ab Hepatitis C Antibody Hepatitis C Ab Index 02/12/18 11:52 WBC RBC Hgb 7.0 L Hct 20 L MCV MCH MCHC RDW Plt Count MPV Neut % (Auto) Lymph % (Auto) [place] % (Auto) Eos % (Auto) Baso % (Auto) Absolute Neuts (auto) Absolute Lymphs (auto) Absolute Monos (auto) Absolute Eos (auto) Absolute Basos (auto) Absolute Nucleated RBC Immature Gran % Neutrophils % Band Neutrophils % Lymphocytes % Monocytes % Nucleated RBC % Abs Neuts (Manual) Abs Lymphs (Manual) Abs Monocytes (Manual) Nucleated RBCs/100 WBC Toxic Granulation Dohle Bodies Normal RBC Morphology Hem Pathologist Commnt Sodium Potassium Chloride Carbon Dioxide Anion Gap BUN Creatinine Est GFR ( Amer) Est GFR (Non-Af Amer) BUN/Creatinine Ratio Glucose Calcium Magnesium Total Bilirubin Direct Bilirubin Indirect Bilirubin AST ALT Alkaline Phosphatase Total Protein Albumin Globulin Albumin/Globulin Ratio Vancomycin Trough Hepatitis A IgM Ab Hep Bs Antigen Hep B Core IgM Ab Hepatitis C Antibody Hepatitis C Ab Index Studies: Absolute neutrophil count - as above Nutrition: Oral diet Impression: 1. Neutropenia has resolved, and there is no evidence for a treatable infection. 2. Has persistent thrombocytopenia but no evidence of active bleeding. 3. She also has a persistent, severe anemia, and will probably will benefit from another unit of packed RBCs. Plan: Antibiotics per oncology and ID services. I will transfuse one unit packed RBCs (to get Hgb>7 g/dL). Patient will be transferred out of ICU. Dr. Michelle infante.
[2018-02-12] MEDS: Montelukast Sodium TAB* 10 MG PO SCH (20:06)
[2018-02-12] MEDS ORDERED: Vancomycin(*) 1,000 MG in NS 0.9% 250 ML* 250 ML IVPB SCH (22:00)
[2018-02-13] MEDS: metroNIDAZOLE IV 500 MG/100ML* 500 MG/100 ML BAG IVPB SCH ×3 (01:30→16:55)
[2018-02-13] MEDS: Omeprazole CAP* 20 MG PO SCH (06:22)
[2018-02-13] MEDS: Cefepime 2 GM in Dextrose(*) 2 GM/50 ML BAG IV SCH ×2 (06:22→18:27)
[2018-02-13] MEDS ORDERED: Alteplase (CATHFLO)* 2 MG VIAL IV ONE (07:23)
--- NOTE | 2018-02-13 07:39 | PN ---
Progress Note - Progress Note Date of Service: 02/13/18 SOAP: Subjective: still feels fairly poor today. +cough with midthoracic back pain on coughing. +incontinence from diarrhea. abd pain improved Objective: Vital Signs Temp Pulse Resp BP Pulse Ox 97.0 F 69 18 129/50 95 02/13/18 02:52 02/13/18 02:52 02/13/18 02:52 02/13/18 02:52 02/13/18 02:52 obese f lying in bed in nad op very dry CTA anteriorly s1 s2 irr obese soft nt trace le edema bl A+O x 3, nonfocal grossly port RUchest wall scattered petechiae and ecchymoses Laboratory Results - last 24 hr 02/10/18 02/12/18 02/12/18 11:57 04:45 07:36 Hgb Hct Hem Pathologist Commnt Vancomycin Trough 19.3 Blood Type O Negative Antibody Screen Negative Crossmatch See Detail 02/12/18 11:52 Hgb 7.0 L Hct 20 L Hem Pathologist Commnt Vancomycin Trough Blood Type Antibody Screen Crossmatch Albuterol/Ipratropium (Duoneb (Albuterol 2.5 Mg/Ipratropium 0.5 Mg)) 1 neb INH Q4H PRN PRN Reason: SOB/WHEEZING Cetirizine HCl (Zyrtec*) 10 mg PO DAILY [facility] Last Admin: 02/12/18 07:32 Dose: 10 mg Cholecalciferol (Vitamin D Tab*) 1,000 units PO DAILY [facility] Last Admin: 02/12/18 07:32 Dose: 1,000 units Device (Tiotropium Inhaler Device*) 1 each .SEE ORDER .USE w/ SPIRIVA CAPS [facility] Diltiazem HCl (Cardizem Cd Cap*) 360 mg PO DAILY [facility] Last Admin: 02/12/18 07:32 Dose: 360 mg Cefepime HCl (Maxipime 2 Gm In Dextrose Duplex (*)) 2 gm in 50 mls @ 100 mls/ hr IV 0630,1830 [facility] Last Admin: 02/13/18 06:22 Dose: 100 mls/hr Metronidazole/Sodium Chloride (Flagyl 500 Mg Ivpb*) 500 mg in 100 mls @ 100 mls /hr IVPB Q8H [facility] Last Admin: 02/13/18 01:30 Dose: 100 mls/hr Sodium Chloride (Ns 0.9% 1000 Ml*) 1,000 mls @ 125 mls/hr IV PER RATE [facility] Loperamide HCl (Imodium Cap*) 2 mg PO .SEE DIRECTIONS PRN PRN Reason: DIARRHEA Mometasone Furoate/Formoterol Fumar (Dulera 200/5 Mdi*) 2 puff INH BID [facility]; Protocol Last Admin: 02/12/18 19:40 Dose: 2 puff Montelukast Sodium (Singulair Tab*) 10 mg PO BEDTIME [facility] Last Admin: 02/12/18 20:06 Dose: 10 mg Morphine Sulfate (Morphine Vial*) 1 mg IV Q4H PRN PRN Reason: PAIN Last Admin: 02/12/18 20:06 Dose: 1 mg Omeprazole (Prilosec Cap*) 20 mg PO DAILY@0600 [facility] Last Admin: 02/13/18 06:22 Dose: 20 mg Ondansetron HCl (Zofran Inj*) 4 mg IV Q6H PRN PRN Reason: NAUSEA Prednisone (Deltasone Tab*) 5 mg PO DAILY [facility] Last Admin: 02/12/18 07:32 Dose: 5 mg Tiotropium [place] (Spiriva Cap.Inh*) 1 cap INH DAILY [facility] Last Admin: 02/12/18 11:58 Dose: Not Given Assessment: 72 yo F w 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 Diarrhea persists. As c diff negative I would like to start loperamide. If abdominal pain increases we will scan for typhlitis. Plan: ARF: likely a combination of prerenal azotemia from diarrhea and vancomycin. not on fluids currently so will start (clinically appears quite dry) -NS at 125 cc/hr -follow urine output if possible given diarrheal incontinence neutropenic fevers: resolved, source unclear but still coughing with diarrhea so will continue cefepime and flagyl diarrhea: add loperamide copd: cont nebs, dulera, spiriva and prednisone pancytopenia: no DVT prophylaxis transfuse plts <10 or bleeding transfuse Hb <7.0 full code
[2018-02-13] MEDS: Cholecalciferol TAB* 1000 UNITS PO SCH (07:52)
[2018-02-13] MEDS: Cetirizine* 10 MG TAB PO SCH (07:52)
[2018-02-13] MEDS: Morphine VIAL* 4 MG/ML VIAL (1 ml vial) IV PRN ×3 (07:52→20:03)
[2018-02-13] MEDS: NS 0.9% 1000 ML* 1,000 ML IV SCH ×2 (07:52→16:55)
[2018-02-13] MEDS: predniSONE TAB* 5 MG PO SCH (07:52)
[2018-02-13] MEDS: Diltiazem CD CAP* 180 MG PO SCH (07:53)
[2018-02-13] MEDS: Tiotropium CAP.INH* CAP.INH/18 MCG (USE ORDER SET !) INH SCH (07:55)
[2018-02-13] MEDS: Mometasone/Formoter 200/5 MDI INH SCH ×2 (07:55→20:25)
[2018-02-13] MEDS: Albuterol/Ipratropium NEB.SOL* Albuterol 2.5 MG/Ipratropium 0.5 MG 3 ML INH PRN ×2 (07:55→14:21)
[2018-02-13 08:10] LABS: Hematocrit 21 % (35-47); Hemoglobin 7.3 g/dl (12.0-16.0); Mean Corpuscular HGB Conc 35 g/dl (31-36); Mean Corpuscular Hemoglobin 33 pg (27-31); Mean Corpuscular Volume 92 fL (80-97); Mean Platelet Volume 9.7 fL (7.4-10.4); Platelet Count 22 10^3/ul (150-450); Red Blood Count 2.25 10^6/ul (4.00-5.40); Red Cell Distribution Width 18 % (10.5-15); White Blood Count 4.2 10^3/ul (3.5-10.8)
[2018-02-13 08:21] LABS: EGFR Non-African American 25.6 (>60)
[2018-02-13 08:32] LABS: ABS Basophils 0 10^3/ul (0-0.2); ABS Eosinophils 0 10^3/ul (0-0.6); ABS Lymphocytes 0.2 10^3/ul (1.0-4.8); ABS Monocytes 0.5 10^3/ul (0-0.8); ABS Neutrophils 3.5 10^3/ul (1.5-7.7)
[2018-02-13 08:36] LABS: Monocytes % 13 % (0-7)
[2018-02-13 08:40] LABS: ABS Neutrophils 3.4 10^3/ul (1.5-7.7)
[2018-02-13] MEDS: Loperamide CAP* 2 MG PO PRN ×2 (09:05→19:51)
[2018-02-13] MEDS: Montelukast Sodium TAB* 10 MG PO SCH (19:51)
[2018-02-14] MEDS: metroNIDAZOLE IV 500 MG/100ML* 500 MG/100 ML BAG IVPB SCH (01:03)
[2018-02-14] MEDS: Cefepime 2 GM in Dextrose(*) 2 GM/50 ML BAG IV SCH (05:25)
[2018-02-14] MEDS: Omeprazole CAP* 20 MG PO SCH (05:30)
[2018-02-14 05:47] LABS: Hematocrit 19 % (35-47); Hemoglobin 6.5 g/dl (12.0-16.0); Mean Corpuscular HGB Conc 35 g/dl (31-36); Mean Corpuscular Hemoglobin 32 pg (27-31); Mean Corpuscular Volume 93 fL (80-97); Mean Platelet Volume 10.1 fL (7.4-10.4); Platelet Count 27 10^3/ul (150-450); Red Blood Count 2.03 10^6/ul (4.00-5.40); Red Cell Distribution Width 18 % (10.5-15); White Blood Count 4.8 10^3/ul (3.5-10.8)
[2018-02-14 06:03] LABS: EGFR Non-African American 31.8 (>60)
[2018-02-14 06:08] LABS: ABS Basophils 0 10^3/ul (0-0.2); ABS Eosinophils 0 10^3/ul (0-0.6); ABS Lymphocytes 0.4 10^3/ul (1.0-4.8); ABS Monocytes 0.7 10^3/ul (0-0.8); ABS Neutrophils 3.7 10^3/ul (1.5-7.7); ABS Nucleated RBC 0.1 10^3/ul; Eosinophil % 0.2 % (0-6); Lymphocyte % 8.4 % (25-47); Nucleated Red Blood Cells % 1.2
[2018-02-14] MEDS: Tiotropium CAP.INH* CAP.INH/18 MCG (USE ORDER SET !) INH SCH ×2 (06:22→08:20)
[2018-02-14] MEDS: Albuterol/Ipratropium NEB.SOL* Albuterol 2.5 MG/Ipratropium 0.5 MG 3 ML INH PRN ×2 (06:22→19:50)
[2018-02-14] MEDS: Mometasone/Formoter 200/5 MDI INH SCH ×3 (06:23→19:50)
[2018-02-14] MEDS ORDERED: NS 0.9% 1000 ML* 1,000 ML IV SCH (07:31)
--- NOTE | 2018-02-14 07:39 | PN ---
Progress Note - Progress Note Date of Service: 02/14/18 SOAP: Subjective: diarrhea resolved with one dose of immodium. wheezing more today and aware of being SOB/tight. no fevers. abdominal pain resolved after arredondo placed and 800 cc urine immediately returned. Objective: Vital Signs Temp Pulse Resp BP Pulse Ox 97.0 F 80 22 116/39 99 02/14/18 03:40 02/14/18 06:26 02/14/18 06:26 02/14/18 03:08 02/14/18 06:26 lying flat with mild tachypnea perr eomi op dry exp wheeze throughout s1 s2 nl obese nontender today +ankle edema bilaterally globally weak but grossly nonfocal port RU chest wall clean A+O x 3 scattered ecchymoses and petechiae Laboratory Results - last 24 hr 02/13/18 02/13/18 02/14/18 07:30 07:30 05:25 WBC 4.2 4.8 RBC 2.25 L 2.03 L Hgb 7.3 L 6.5 L Hct 21 L 19 L MCV 92 93 MCH 33 H 32 H MCHC 35 35 RDW 18 H 18 H Plt Count 22 L 27 L MPV 9.7 10.1 Neut % (Auto) Not Reportable 77.4 Lymph % (Auto) Not Reportable 8.4 L [place] % (Auto) Not Reportable 13.8 H Eos % (Auto) Not Reportable 0.2 Baso % (Auto) Not Reportable 0.2 Absolute Neuts (auto) 3.5 3.7 Absolute Lymphs (auto) 0.2 L 0.4 L Absolute Monos (auto) 0.5 0.7 Absolute Eos (auto) 0 0 Absolute Basos (auto) 0 0 Absolute Nucleated RBC Not Reportable 0.1 Immature Gran % 4 Neutrophils % 76 Lymphocytes % 6 L Monocytes % 13 H Eosinophils % 1 Metamyelocytes % 2 Myelocytes % 2 H Nucleated RBC % Not Reportable 1.2 Abs Neuts (Manual) 3.4 Abs Lymphs (Manual) 0.3 L Abs Monocytes (Manual) 0.5 Absolute Eos (Manual) 0 Toxic Granulation 1+ Normal RBC Morphology Not Reportable Sodium 134 L Potassium 3.5 Chloride 109 Carbon Dioxide 18 L Anion Gap 7 BUN 35 H Creatinine 1.93 H Est GFR ( Amer) 31.0 Est GFR (Non-Af Amer) 25.6 BUN/Creatinine Ratio 18.1 Glucose 118 H Calcium 9.5 Total Bilirubin 0.50 AST 68 H ALT 341 H Alkaline Phosphatase 79 Total Protein 5.8 L Albumin 2.9 L Globulin 2.9 Albumin/Globulin Ratio 1.0 02/14/18 05:25 WBC RBC Hgb Hct MCV MCH MCHC RDW Plt Count MPV Neut % (Auto) Lymph % (Auto) [place] % (Auto) Eos % (Auto) Baso % (Auto) Absolute Neuts (auto) Absolute Lymphs (auto) Absolute Monos (auto) Absolute Eos (auto) Absolute Basos (auto) Absolute Nucleated RBC Immature Gran % Neutrophils % Lymphocytes % Monocytes % Eosinophils % Metamyelocytes % Myelocytes % Nucleated RBC % Abs Neuts (Manual) Abs Lymphs (Manual) Abs Monocytes (Manual) Absolute Eos (Manual) Toxic Granulation Normal RBC Morphology Sodium 140 Potassium 3.2 L Chloride 115 H Carbon Dioxide 20 L Anion Gap 5 BUN 28 H Creatinine 1.60 H Est GFR ( Amer) 38.4 Est GFR (Non-Af Amer) 31.8 BUN/Creatinine Ratio 17.5 Glucose 101 H Calcium 8.9 Total Bilirubin 0.30 AST 41 H ALT 265 H Alkaline Phosphatase 71 Total Protein 5.1 L Albumin 2.6 L Globulin 2.5 Albumin/Globulin Ratio 1.0 Albuterol/Ipratropium (Duoneb (Albuterol 2.5 Mg/Ipratropium 0.5 Mg)) 1 neb INH Q4H PRN PRN Reason: SOB/WHEEZING Last Admin: 02/14/18 06:22 Dose: 1 neb Cetirizine HCl (Zyrtec*) 10 mg PO DAILY [facility] Last Admin: 02/13/18 07:52 Dose: 10 mg Cholecalciferol (Vitamin D Tab*) 1,000 units PO DAILY [facility] Last Admin: 02/13/18 07:52 Dose: 1,000 units Device (Tiotropium Inhaler Device*) 1 each .SEE ORDER .USE w/ SPIRIVA CAPS [facility] Diltiazem HCl (Cardizem Cd Cap*) 360 mg PO DAILY [facility] Last Admin: 02/13/18 07:53 Dose: 360 mg Sodium Chloride (Ns 0.9% 1000 Ml*) 1,000 mls @ 50 mls/hr IV PER RATE [facility] Loperamide HCl (Imodium Cap*) 2 mg PO .SEE DIRECTIONS PRN PRN Reason: DIARRHEA Last Admin: 02/13/18 19:51 Dose: 2 mg Methylprednisolone Sodium Succinate (Solu-Medrol 40 Mg) 40 mg IV Q8H [facility] Mometasone Furoate/Formoterol Fumar (Dulera 200/5 Mdi*) 2 puff INH BID [facility]; Protocol Last Admin: 02/14/18 06:23 Dose: 2 puff Montelukast Sodium (Singulair Tab*) 10 mg PO BEDTIME [facility] Last Admin: 02/13/18 19:51 Dose: 10 mg Morphine Sulfate (Morphine Vial*) 1 mg IV Q4H PRN PRN Reason: PAIN Last Admin: 02/13/18 20:03 Dose: 1 mg Omeprazole (Prilosec Cap*) 20 mg PO DAILY@0600 [facility] Last Admin: 02/14/18 05:30 Dose: 20 mg Ondansetron HCl (Zofran Inj*) 4 mg IV Q6H PRN PRN Reason: NAUSEA Potassium Chloride (Klor Con Er Tab*) 20 meq PO DAILY [facility] Prednisone (Deltasone Tab*) 5 mg PO DAILY [facility] Last Admin: 02/13/18 07:52 Dose: 5 mg Tiotropium [place] (Spiriva Cap.Inh*) 1 cap INH DAILY [facility] Last Admin: 02/14/18 06:22 Dose: 1 cap Assessment: 72 yo F w 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 Her diarrhea has resolved and she is no longer neutropenic and so I will stop all abx. Plan: ARF: appears to have been at least in part obstructive, improving with arredondo catheter dec IVFs to 50 cc monitor UO hypokalemia- likely from diuresis and diarrhea replete PO today neutropenic fevers: resolved stop abx today diarrhea: resolved with one dose of immodium copd:appears to be worse today -add solumedrol 40 mg iv q8hrs today, hopefully quick taper cont nebs, dulera, spiriva and prednisone (5mg appears to be home dose?? will cont for now) pancytopenia: no DVT prophylaxis transfuse plts <10 or bleeding transfuse Hb <7.0 full code []
[2018-02-14] MEDS ORDERED: Vancomycin Trough Check NOTE FOLLOW UP ONE (09:30)
[2018-02-14] MEDS: Cholecalciferol TAB* 1000 UNITS PO SCH (09:43)
[2018-02-14] MEDS: methylPREDNISolone SOD 40 MG* 1 ML VIAL IV SCH ×2 (09:43→16:18)
[2018-02-14] MEDS: Potassium Chlor TAB* 20 MEQ TAB.ER PO SCH (09:44)
[2018-02-14] MEDS: Cetirizine* 10 MG TAB PO SCH (09:44)
[2018-02-14] MEDS: Diltiazem CD CAP* 180 MG PO SCH (09:44)
[2018-02-14] MEDS: predniSONE TAB* 5 MG PO SCH (09:44)
[2018-02-14] MEDS: Morphine VIAL* 4 MG/ML VIAL (1 ml vial) IV PRN ×2 (14:44→20:28)
[2018-02-14] MEDS: Loperamide CAP* 2 MG PO PRN (20:33)
[2018-02-14] MEDS: Montelukast Sodium TAB* 10 MG PO SCH (21:30)
[2018-02-15] MEDS: methylPREDNISolone SOD 40 MG* 1 ML VIAL IV SCH ×3 (00:45→21:00)
[2018-02-15] MEDS: Omeprazole CAP* 20 MG PO SCH (05:29)
[2018-02-15 05:34] LABS: EGFR Non-African American 41.1 (>60)
[2018-02-15 05:50] LABS: Hematocrit 22 % (35-47); Hemoglobin 7.6 g/dl (12.0-16.0); Mean Corpuscular HGB Conc 35 g/dl (31-36); Mean Corpuscular Hemoglobin 32 pg (27-31); Mean Corpuscular Volume 91 fL (80-97); Mean Platelet Volume 9.4 fL (7.4-10.4); Platelet Count 36 10^3/ul (150-450); Red Cell Distribution Width 17 % (10.5-15); White Blood Count 7.6 10^3/ul (3.5-10.8)
[2018-02-15 06:17] LABS: ABS Basophils 0 10^3/ul (0-0.2); ABS Eosinophils 0 10^3/ul (0-0.6); ABS Lymphocytes 0.5 10^3/ul (1.0-4.8); ABS Monocytes 0.6 10^3/ul (0-0.8); ABS Neutrophils 6.6 10^3/ul (1.5-7.7); ABS Nucleated RBC 0.1 10^3/ul
[2018-02-15 06:20] LABS: Monocytes % 3 % (0-7)
[2018-02-15 06:21] LABS: ABS Neutrophils 6.8 10^3/ul (1.5-7.7)
[2018-02-15] MEDS: Mometasone/Formoter 200/5 MDI INH SCH ×2 (07:26→19:55)
[2018-02-15] MEDS: Tiotropium CAP.INH* CAP.INH/18 MCG (USE ORDER SET !) INH SCH (07:26)
[2018-02-15] MEDS: predniSONE TAB* 5 MG PO SCH (08:42)
[2018-02-15] MEDS: Diltiazem CD CAP* 180 MG PO SCH (08:42)
[2018-02-15] MEDS: Potassium Chlor TAB* 20 MEQ TAB.ER PO SCH (08:42)
[2018-02-15] MEDS: Cetirizine* 10 MG TAB PO SCH (08:42)
[2018-02-15] MEDS: Cholecalciferol TAB* 1000 UNITS PO SCH (08:42)
--- NOTE | 2018-02-15 10:01 | PN ---
Progress Note - Progress Note Date of Service: 02/15/18 SOAP: Subjective: [Reports feeling better today. She had a semiformed BM, no abd pain. SOB somewhat improved. No new complaints] Objective: [ Albuterol/Ipratropium (Duoneb (Albuterol 2.5 Mg/Ipratropium 0.5 Mg)) 1 neb INH Q4H PRN PRN Reason: SOB/WHEEZING Last Admin: 02/14/18 19:50 Dose: 1 neb Albuterol/Ipratropium (Duoneb (Albuterol 2.5 Mg/Ipratropium 0.5 Mg)) 1 neb INH BID [facility] Cetirizine HCl (Zyrtec*) 10 mg PO DAILY [facility] Last Admin: 02/15/18 08:42 Dose: 10 mg Cholecalciferol (Vitamin D Tab*) 1,000 units PO DAILY [facility] Last Admin: 02/15/18 08:42 Dose: 1,000 units Device (Tiotropium Inhaler Device*) 1 each .SEE ORDER .USE w/ SPIRIVA CAPS [facility] Diltiazem HCl (Cardizem Cd Cap*) 360 mg PO DAILY [facility] Last Admin: 02/15/18 08:42 Dose: 360 mg Heparin Sodium (Porcine) (Heparin Flush Port (Ivad)) 5 ml FLUSH DAILY [facility]; Protocol Loperamide HCl (Imodium Cap*) 2 mg PO .SEE DIRECTIONS PRN PRN Reason: DIARRHEA Last Admin: 02/14/18 20:33 Dose: 2 mg Methylprednisolone Sodium Succinate (Solu-Medrol 40 Mg) 40 mg IV Q12H [facility] Mometasone Furoate/Formoterol Fumar (Dulera 200/5 Mdi*) 2 puff INH BID [facility]; Protocol Last Admin: 02/15/18 07:26 Dose: 2 puff Montelukast Sodium (Singulair Tab*) 10 mg PO BEDTIME [facility] Last Admin: 02/14/18 21:30 Dose: 10 mg Morphine Sulfate (Morphine Vial*) 1 mg IV Q4H PRN PRN Reason: PAIN Last Admin: 02/14/18 20:28 Dose: 1 mg Omeprazole (Prilosec Cap*) 20 mg PO DAILY@0600 [facility] Last Admin: 02/15/18 05:29 Dose: 20 mg Ondansetron HCl (Zofran Inj*) 4 mg IV Q6H PRN PRN Reason: NAUSEA Potassium Chloride (Klor Con Er Tab*) 20 meq PO DAILY [facility] Last Admin: 02/15/18 08:42 Dose: 20 meq Prednisone (Deltasone Tab*) 5 mg PO DAILY [facility] Last Admin: 02/15/18 08:42 Dose: 5 mg Tiotropium [place] (Spiriva Cap.Inh*) 1 cap INH DAILY [facility] Last Admin: 02/15/18 07:26 Dose: 1 cap Laboratory Results - last 24 hr 02/14/18 02/15/18 02/15/18 05:25 04:58 05:10 WBC 7.6 RBC 2.40 L Hgb 7.6 L Hct 22 L MCV 91 MCH 32 H MCHC 35 RDW 17 H Plt Count 36 L MPV 9.4 Neut % (Auto) Not Reportable Lymph % (Auto) Not Reportable [place] % (Auto) Not Reportable Eos % (Auto) Not Reportable Baso % (Auto) Not Reportable Absolute Neuts (auto) 6.6 Absolute Lymphs (auto) 0.5 L Absolute Monos (auto) 0.6 Absolute Eos (auto) 0 Absolute Basos (auto) 0 Absolute Nucleated RBC 0.1 Immature Gran % 10 H Neutrophils % 80 Band Neutrophils % 6 Lymphocytes % 7 L Monocytes % 3 Metamyelocytes % 4 H Nucleated RBC % Not Reportable Abs Neuts (Manual) 6.8 Abs Lymphs (Manual) 0.5 L Abs Monocytes (Manual) 0.2 Nucleated RBCs/100 WBC 4 H Normal RBC Morphology Not Reportable Anisocytosis 2+ Sodium 140 Potassium 3.5 Chloride 113 H Carbon Dioxide 19 L Anion Gap 8 BUN 27 H Creatinine 1.28 H Est GFR ( Amer) 49.7 Est GFR (Non-Af Amer) 41.1 BUN/Creatinine Ratio 21.1 H Glucose 161 H Calcium 9.2 Magnesium 1.3 L Total Bilirubin 0.40 AST 21 ALT 250 H Alkaline Phosphatase 73 Total Protein 5.5 L Albumin 2.9 L Globulin 2.6 Albumin/Globulin Ratio 1.1 Blood Type O Negative Antibody Screen Negative Crossmatch See Detail Vital Signs: Temp Pulse Resp BP Pulse Ox 98.1 F 89 20 138/60 96 02/14/18 23:15 02/14/18 23:15 02/15/18 01:09 02/14/18 23:15 02/14/18 23:15 Exam: Gen: chronically ill appearing 72 yo female in NAD, cushingoid HEENT: MMM, no thrush CV: RRR, no m/r/g Abd: soft, nonTTP Ext: trace LE edema] [Assessment: 72 yo F w 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 Her diarrhea has resolved and she is no longer neutropenic. Plan: ARF: appears to have been at least in part obstructive, improving with arredondo catheter no h/o prior obstructive symptoms dc Arredondo today and monitor PVR hypokalemia- improved monitor neutropenic fevers: resolved abx stopped diarrhea: resolved associated transaminitis with neg HIDA liver enzymes improving suspect viral etiology copd with mild exacerbation start to taper solumedrol cont nebs, dulera, spiriva on prednisone daily at home, baseline dose is somewhere between 5 and 10 mg pancytopenia secondary to chemotherapy: no DVT prophylaxis transfuse plts <10 or bleeding transfuse Hb <7.0 full code
[2018-02-15] MEDS: Morphine VIAL* 4 MG/ML VIAL (1 ml vial) IV PRN (16:25)
[2018-02-15] MEDS: Albuterol/Ipratropium NEB.SOL* Albuterol 2.5 MG/Ipratropium 0.5 MG 3 ML INH SCH (19:55)
[2018-02-15] MEDS: Montelukast Sodium TAB* 10 MG PO SCH (21:00)
[2018-02-16] MEDS: Morphine VIAL* 4 MG/ML VIAL (1 ml vial) IV PRN ×3 (00:30→20:38)
[2018-02-16] MEDS: Omeprazole CAP* 20 MG PO SCH (05:52)
[2018-02-16 06:37] LABS: Hematocrit 24 % (35-47); Hemoglobin 7.9 g/dl (12.0-16.0); Mean Corpuscular HGB Conc 33 g/dl (31-36); Mean Corpuscular Hemoglobin 31 pg (27-31); Mean Corpuscular Volume 93 fL (80-97); Mean Platelet Volume 9.7 fL (7.4-10.4); Platelet Count 51 10^3/ul (150-450); Red Blood Count 2.56 10^6/ul (4.00-5.40); Red Cell Distribution Width 18 % (10.5-15); White Blood Count 11.8 10^3/ul (3.5-10.8)
[2018-02-16 06:49] LABS: EGFR Non-African American 42.2 (>60)
[2018-02-16 06:58] LABS: ABS Basophils 0 10^3/ul (0-0.2); ABS Eosinophils 0 10^3/ul (0-0.6); ABS Lymphocytes 0.7 10^3/ul (1.0-4.8); ABS Monocytes 1.1 10^3/ul (0-0.8)
[2018-02-16 07:00] LABS: Monocytes % 3 % (0-7)
[2018-02-16 07:03] LABS: ABS Neutrophils 10.9 10^3/ul (1.5-7.7)
[2018-02-16] MEDS: Albuterol/Ipratropium NEB.SOL* Albuterol 2.5 MG/Ipratropium 0.5 MG 3 ML INH SCH ×2 (07:27→19:44)
[2018-02-16] MEDS: Tiotropium CAP.INH* CAP.INH/18 MCG (USE ORDER SET !) INH SCH (07:27)
[2018-02-16] MEDS: Mometasone/Formoter 200/5 MDI INH SCH ×2 (07:28→19:45)
[2018-02-16] MEDS: methylPREDNISolone SOD 40 MG* 1 ML VIAL IV SCH ×2 (08:02→20:38)
[2018-02-16] MEDS: Diltiazem CD CAP* 180 MG PO SCH (08:03)
[2018-02-16] MEDS: predniSONE TAB* 5 MG PO SCH (08:03)
[2018-02-16] MEDS: Potassium Chlor TAB* 20 MEQ TAB.ER PO SCH (08:04)
[2018-02-16] MEDS: Cholecalciferol TAB* 1000 UNITS PO SCH (08:04)
[2018-02-16] MEDS: Cetirizine* 10 MG TAB PO SCH (08:05)
--- NOTE | 2018-02-16 10:38 | PN ---
Progress Note - Progress Note Date of Service: 02/16/18 SOAP: Subjective: [She unfortunately failed Arredondo challenge. She was unable to urinate after ~8 hours with >400 ml in her bladder. She did have an urge, but was unable to go. Arredondo was replaced last night. No abd pain. No diarrhea. No fevers. She had more difficulty sleeping last night, she was up coughing.] Objective: [ Laboratory Results - last 24 hr 02/16/18 02/16/18 06:00 06:00 WBC 11.8 H RBC 2.56 L Hgb 7.9 L Hct 24 L MCV 93 MCH 31 MCHC 33 RDW 18 H Plt Count 51 L D MPV 9.7 Neut % (Auto) Not Reportable Lymph % (Auto) Not Reportable [place] % (Auto) Not Reportable Eos % (Auto) Not Reportable Baso % (Auto) Not Reportable Absolute Neuts (auto) 10.0 H Absolute Lymphs (auto) 0.7 L Absolute Monos (auto) 1.1 H Absolute Eos (auto) 0 Absolute Basos (auto) 0 Absolute Nucleated RBC Not Reportable Immature Gran % 3 Neutrophils % 89 H Band Neutrophils % 1 Lymphocytes % 5 L Monocytes % 3 Metamyelocytes % 1 Myelocytes % 1 Nucleated RBC % Not Reportable Abs Neuts (Manual) 10.9 H Abs Lymphs (Manual) 0.6 L Abs Monocytes (Manual) 0.3 Nucleated RBCs/100 WBC 3 H Normal RBC Morphology Not Reportable Polychromasia 1+ Sodium 141 Potassium 3.6 Chloride 112 H Carbon Dioxide 20 L Anion Gap 9 BUN 37 H Creatinine 1.25 H Est GFR ( Amer) 51.1 Est GFR (Non-Af Amer) 42.2 BUN/Creatinine Ratio 29.6 H Glucose 175 H Calcium 9.7 Magnesium 1.2 L Total Bilirubin 0.30 AST 16 ALT 212 H Alkaline Phosphatase 83 Total Protein 5.6 L Albumin 3.1 L Globulin 2.5 Albumin/Globulin Ratio 1.2 Albuterol/Ipratropium (Duoneb (Albuterol 2.5 Mg/Ipratropium 0.5 Mg)) 1 neb INH Q4H PRN PRN Reason: SOB/WHEEZING Last Admin: 02/14/18 19:50 Dose: 1 neb Albuterol/Ipratropium (Duoneb (Albuterol 2.5 Mg/Ipratropium 0.5 Mg)) 1 neb INH RT.BID [facility] Last Admin: 02/16/18 07:27 Dose: 1 neb Cetirizine HCl (Zyrtec*) 10 mg PO DAILY [facility] Last Admin: 02/16/18 08:05 Dose: 10 mg Cholecalciferol (Vitamin D Tab*) 1,000 units PO DAILY [facility] Last Admin: 02/16/18 08:04 Dose: 1,000 units Device (Tiotropium Inhaler Device*) 1 each .SEE ORDER .USE w/ SPIRIVA CAPS [facility] Diltiazem HCl (Cardizem Cd Cap*) 360 mg PO DAILY [facility] Last Admin: 02/16/18 08:03 Dose: 360 mg Heparin Sodium (Porcine) (Heparin Flush Port (Ivad)) 5 ml FLUSH DAILY [facility]; Protocol Last Admin: 02/16/18 09:50 Dose: 5 ml Magnesium Sulfate (Magnesium Sulf 4 Gm/100 Ml Iv*) 4,000 mg in 100 mls @ 33.333 mls/hr IVPB ONCE ONE Stop: 02/16/18 13:28 Lidocaine (Lidoderm 5% Patch*) 1 patch TRANSDERM DAILY [facility] Loperamide HCl (Imodium Cap*) 2 mg PO .SEE DIRECTIONS PRN PRN Reason: DIARRHEA Last Admin: 02/14/18 20:33 Dose: 2 mg Methylprednisolone Sodium Succinate (Solu-Medrol 40 Mg) 40 mg IV Q12H [facility] Last Admin: 02/16/18 08:02 Dose: 40 mg Mometasone Furoate/Formoterol Fumar (Dulera 200/5 Mdi*) 2 puff INH BID [facility]; Protocol Last Admin: 02/16/18 07:28 Dose: 2 puff Montelukast Sodium (Singulair Tab*) 10 mg PO BEDTIME [facility] Last Admin: 02/15/18 21:00 Dose: 10 mg Morphine Sulfate (Morphine Vial*) 1 mg IV Q4H PRN PRN Reason: PAIN Last Admin: 02/16/18 09:59 Dose: 1 mg Omeprazole (Prilosec Cap*) 20 mg PO DAILY@0600 [facility] Last Admin: 02/16/18 05:52 Dose: 20 mg Ondansetron HCl (Zofran Inj*) 4 mg IV Q6H PRN PRN Reason: NAUSEA Pharmacy Profile Note (Lidocaine Patch Remove*) 1 note N/A 2100 [facility] Potassium Chloride (Klor Con Er Tab*) 20 meq PO DAILY [facility] Last Admin: 02/16/18 08:04 Dose: 20 meq Prednisone (Deltasone Tab*) 5 mg PO DAILY [facility] Last Admin: 02/16/18 08:03 Dose: 5 mg Tamsulosin HCl (Flomax Cap*) 0.4 mg PO BEDTIME [facility] Tiotropium [place] (Spiriva Cap.Inh*) 1 cap INH DAILY [facility] Last Admin: 02/16/18 07:27 Dose: 1 cap Vital Signs: Temp Pulse Resp BP Pulse Ox 96.4 F 65 18 146/78 98 02/16/18 07:17 02/16/18 07:29 02/16/18 09:59 02/16/18 07:17 02/16/18 07:29 Exam: Gen: chronically ill appearing 72 yo female in NAD, cushingoid HEENT: MMM, no thrush CV: RRR, no m/r/g Resp: reduced breath sounds diffusely, no w/c/r Abd: soft, nonTTP Ext: trace LE edema] [Assessment: 72 yo F w 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 Her diarrhea has resolved and she is no longer neutropenic. Plan: ARF with urinary retention appears to have been at least in part obstructive, improving with arredondo catheter no h/o prior obstructive symptoms unable to urinate yesterday when Arredondo removed She has been complaining of back pain - MRI L spine completed 01/30 which showed no metastatic disease and no significant canal stenosis at that time UA from admission appeared to represent infection - polymicrobial on culture - she received multiple days of abx that would cover most urinary pathogens Repeat UA today and request urology consultation Arredondo to remain in place Start Flomax hypokalemia/hypomagnesemia cont to monitor and replete as necessary neutropenic fevers: resolved abx stopped diarrhea: resolved associated transaminitis with neg HIDA liver enzymes improving suspect viral etiology copd with mild exacerbation started to taper solumedrol, increased cough overnight but no worsening wheeze, cont 40 mg bid cont nebs, dulera, spiriva on prednisone daily at home, baseline dose is somewhere between 5 and 10 mg pancytopenia secondary to chemotherapy: slow recovery no DVT prophylaxis for now - but will resume her Xarelto tomorrow if platelets again >50K transfuse plts <10 or bleeding transfuse Hb <7.0 full code]
[2018-02-16] MEDS ORDERED: Magnesium Sulf 4 GM/100 ML IV* 4,000 MG/100 ML BAG IVPB ONE (11:00)
[2018-02-16] MEDS: Lidocaine PATCH 5%* 1 PATCH TRANSDERM SCH (12:08)
[2018-02-16 14:30] LABS: Urine Appearance Cloudy; Urine Blood 3+ (Negative); Urine Color Yellow; Urine Ketones Negative (Negative); Urine Protein 2+(100 mg/dL) (Negative); Urine Red Blood Cell 3+(>10/hpf) (Absent); Urine Specific Gravity 1.016 (1.010-1.030); Urine Urobilinogen Negative (Negative); Urine White Blood Cell 3+(>20/hpf) (Absent)
[2018-02-16] MEDS: Tamsulosin CAP* 0.4 MG PO SCH (20:37)
[2018-02-16] MEDS: Montelukast Sodium TAB* 10 MG PO SCH (20:38)
[2018-02-16] MEDS: Lidocaine Patch REMOVE* 1 NOTE MISC SCH (20:43)
[2018-02-17] MEDS: Omeprazole CAP* 20 MG PO SCH (05:16)
[2018-02-17 05:27] LABS: Hematocrit 25 % (35-47); Hemoglobin 8.4 g/dl (12.0-16.0); Mean Corpuscular HGB Conc 34 g/dl (31-36); Mean Corpuscular Hemoglobin 32 pg (27-31); Mean Corpuscular Volume 93 fL (80-97); Mean Platelet Volume 9.6 fL (7.4-10.4); Platelet Count 67 10^3/ul (150-450); Red Blood Count 2.66 10^6/ul (4.00-5.40); Red Cell Distribution Width 18 % (10.5-15); White Blood Count 15.4 10^3/ul (3.5-10.8)
[2018-02-17 05:43] LABS: EGFR Non-African American 45.6 (>60)
[2018-02-17 07:33] LABS: ABS Basophils 0 10^3/ul (0-0.2); ABS Eosinophils 0 10^3/ul (0-0.6); ABS Lymphocytes 0.8 10^3/ul (1.0-4.8); ABS Monocytes 1.3 10^3/ul (0-0.8); ABS Neutrophils 13.3 10^3/ul (1.5-7.7)
[2018-02-17 07:35] LABS: Monocytes % 7 % (0-7)
[2018-02-17] MEDS: Albuterol/Ipratropium NEB.SOL* Albuterol 2.5 MG/Ipratropium 0.5 MG 3 ML INH SCH ×2 (07:52→20:00)
[2018-02-17] MEDS: Mometasone/Formoter 200/5 MDI INH SCH ×2 (07:54→20:00)
[2018-02-17] MEDS: Tiotropium CAP.INH* CAP.INH/18 MCG (USE ORDER SET !) INH SCH (08:00)
[2018-02-17] MEDS: Lidocaine PATCH 5%* 1 PATCH TRANSDERM SCH (08:14)
[2018-02-17] MEDS: methylPREDNISolone SOD 40 MG* 1 ML VIAL IV SCH (08:14)
[2018-02-17] MEDS: Cholecalciferol TAB* 1000 UNITS PO SCH (08:15)
[2018-02-17] MEDS: Diltiazem CD CAP* 180 MG PO SCH (08:15)
[2018-02-17] MEDS: Potassium Chlor TAB* 20 MEQ TAB.ER PO SCH (08:15)
[2018-02-17] MEDS: predniSONE TAB* 5 MG PO SCH (08:15)
[2018-02-17] MEDS: Cetirizine* 10 MG TAB PO SCH (08:15)
[2018-02-17 08:59] LABS: ABS Neutrophils 13.7 10^3/ul (1.5-7.7)
[2018-02-17] MEDS ORDERED: oxyCODONE TAB* 5 MG TAB PO PRN (12:35)
[2018-02-17] MEDS ORDERED: Rivaroxaban TAB(*) 20 MG TAB PO SCH (18:00)
--- NOTE | 2018-02-17 18:06 | PN ---
Progress Note - Progress Note Date of Service: 02/17/18 SOAP: Subjective: []Pt. seen and examined this AM, approx. 11:30am Feels better today than yesterday. Moving more with PT and feels she got a little less winded. Back pain controlled with PRN morphine and has not been severe. No fevers that she is aware of. Regular BMs Arredondo in place Medications: Albuterol/Ipratropium (Duoneb (Albuterol 2.5 Mg/Ipratropium 0.5 Mg)) 1 neb INH Q4H PRN PRN Reason: SOB/WHEEZING Last Admin: 02/14/18 19:50 Dose: 1 neb Albuterol/Ipratropium (Duoneb (Albuterol 2.5 Mg/Ipratropium 0.5 Mg)) 1 neb INH RT.BID [facility] Last Admin: 02/17/18 07:52 Dose: 1 neb Cholecalciferol (Vitamin D Tab*) 1,000 units PO DAILY [facility] Last Admin: 02/17/18 08:15 Dose: 1,000 units Device (Tiotropium Inhaler Device*) 1 each .SEE ORDER .USE w/ SPIRIVA CAPS [facility] Diltiazem HCl (Cardizem Cd Cap*) 360 mg PO DAILY [facility] Last Admin: 02/17/18 08:15 Dose: 360 mg Heparin Sodium (Porcine) (Heparin Flush Port (Ivad)) 5 ml FLUSH DAILY [facility]; Protocol Last Admin: 02/17/18 08:14 Dose: 5 ml Lidocaine (Lidoderm 5% Patch*) 1 patch TRANSDERM DAILY [facility] Last Admin: 02/17/18 08:14 Dose: 1 patch Loperamide HCl (Imodium Cap*) 2 mg PO .SEE DIRECTIONS PRN PRN Reason: DIARRHEA Last Admin: 02/14/18 20:33 Dose: 2 mg Methylprednisolone Sodium Succinate (Solu-Medrol 40 Mg) 40 mg IV DAILY [facility] Mometasone Furoate/Formoterol Fumar (Dulera 200/5 Mdi*) 2 puff INH BID [facility]; Protocol Last Admin: 02/17/18 07:54 Dose: 2 puff Montelukast Sodium (Singulair Tab*) 10 mg PO BEDTIME [facility] Last Admin: 02/16/18 20:38 Dose: 10 mg Omeprazole (Prilosec Cap*) 20 mg PO DAILY@0600 [facility] Last Admin: 02/17/18 05:16 Dose: 20 mg Ondansetron HCl (Zofran Inj*) 4 mg IV Q6H PRN PRN Reason: NAUSEA Oxycodone HCl (Roxycodone Tab*) 5 mg PO Q6H PRN PRN Reason: pain Pharmacy Profile Note (Lidocaine Patch Remove*) 1 note N/A 2100 [facility] Last Admin: 02/16/18 20:43 Dose: 1 note Potassium Chloride (Klor Con Er Tab*) 20 meq PO DAILY [facility] Last Admin: 02/17/18 08:15 Dose: 20 meq Prednisone (Deltasone Tab*) 5 mg PO DAILY [facility] Last Admin: 02/17/18 08:15 Dose: 5 mg Rivaroxaban (Xarelto(*)) 20 mg PO QPM [facility] Tamsulosin HCl (Flomax Cap*) 0.4 mg PO BEDTIME [facility] Last Admin: 02/16/18 20:37 Dose: 0.4 mg Tiotropium [place] (Spiriva Cap.Inh*) 1 cap INH DAILY [facility] Last Admin: 02/17/18 08:00 Dose: 1 cap Objective: [] Vital Signs Temp Pulse Resp BP Pulse Ox 97.6 F 87 22 158/64 99 02/17/18 16:26 02/17/18 16:26 02/17/18 16:26 02/17/18 16:26 02/17/18 16:26 A&Ox3, EOMI, neuro grossly non-focal HRR, S1S2 LS dim. to bilat. bases +BS, abd. round, obese Laboratory Results - last 24 hr 02/17/18 02/17/18 05:00 05:00 WBC 15.4 H RBC 2.66 L Hgb 8.4 L Hct 25 L MCV 93 MCH 32 H MCHC 34 RDW 18 H Plt Count 67 L MPV 9.6 Neut % (Auto) Not Reportable Lymph % (Auto) Not Reportable [place] % (Auto) Not Reportable Eos % (Auto) Not Reportable Baso % (Auto) Not Reportable Absolute Neuts (auto) 13.3 H Absolute Lymphs (auto) 0.8 L Absolute Monos (auto) 1.3 H Absolute Eos (auto) 0 Absolute Basos (auto) 0 Absolute Nucleated RBC Not Reportable Immature Gran % 2 Neutrophils % 87 H Lymphocytes % 4 L Monocytes % 7 Myelocytes % 2 H Nucleated RBC % Not Reportable Abs Neuts (Manual) 13.7 H Abs Lymphs (Manual) 0.6 L Abs Monocytes (Manual) 1.1 H Nucleated RBCs/100 WBC 5 H Normal RBC Morphology Not Reportable Polychromasia 1+ Hypochromasia 1+ Anisocytosis 1+ Sodium 141 Potassium 3.5 Chloride 112 H Carbon Dioxide 21 L Anion Gap 8 BUN 37 H Creatinine 1.17 H Est GFR ( Amer) 55.2 Est GFR (Non-Af Amer) 45.6 BUN/Creatinine Ratio 31.6 H Glucose 164 H Calcium 9.8 Magnesium 1.9 Total Bilirubin 0.30 AST 15 ALT 213 H Alkaline Phosphatase 92 Total Protein 5.8 L Albumin 3.2 Globulin 2.6 Albumin/Globulin Ratio 1.2 Assessment: []72 yo F w 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 Unfortunately she has developed urinary retention of unclear etiology. Plan: []1. Decrease steroids today to once in AM and monitor breathing - leukocytosis is likely a response to steroids now that her bone marrow has recovered 2. Case quickly discussed with Dr. Calvillo who feels retention is likely related to dec. mobility. - cont. flomax but watch for progressive dizziness - stop morphine, stop histamine nova - trial arredondo out and check post void residuals Hopeful for d/c home tomorrow with nursing services
[2018-02-17] MEDS: Tamsulosin CAP* 0.4 MG PO SCH (21:29)
[2018-02-17] MEDS: Montelukast Sodium TAB* 10 MG PO SCH (21:29)
[2018-02-17] MEDS: Lidocaine Patch REMOVE* 1 NOTE MISC SCH (21:31)
[2018-02-18] MEDS: Omeprazole CAP* 20 MG PO SCH (05:20)
[2018-02-18 06:07] LABS: EGFR Non-African American 44.3 (>60)
[2018-02-18 07:10] LABS: ABS Basophils 0 10^3/ul (0-0.2); ABS Eosinophils 0 10^3/ul (0-0.6); ABS Lymphocytes 0.8 10^3/ul (1.0-4.8); ABS Monocytes 1.4 10^3/ul (0-0.8); ABS Neutrophils 14.6 10^3/ul (1.5-7.7); Hematocrit 24 % (35-47); Mean Corpuscular HGB Conc 34 g/dl (31-36); Mean Corpuscular Hemoglobin 32 pg (27-31); Mean Corpuscular Volume 94 fL (80-97); Mean Platelet Volume 9.2 fL (7.4-10.4); Platelet Count 79 10^3/ul (150-450); Red Blood Count 2.51 10^6/ul (4.00-5.40); Red Cell Distribution Width 17 % (10.5-15); White Blood Count 16.7 10^3/ul (3.5-10.8)
[2018-02-18 07:12] LABS: Monocytes % 5 %
[2018-02-18 07:14] LABS: ABS Neutrophils 15.2 10^3/ul (1.5-7.7)
[2018-02-18] MEDS: Albuterol/Ipratropium NEB.SOL* Albuterol 2.5 MG/Ipratropium 0.5 MG 3 ML INH SCH (08:01)
[2018-02-18] MEDS: Mometasone/Formoter 200/5 MDI INH SCH (08:02)
[2018-02-18] MEDS: Tiotropium CAP.INH* CAP.INH/18 MCG (USE ORDER SET !) INH SCH (08:02)
[2018-02-18] MEDS ORDERED: methylPREDNISolone SOD 40 MG* 1 ML VIAL IV SCH (09:00)
[2018-02-18] MEDS: Potassium Chlor TAB* 20 MEQ TAB.ER PO SCH (09:30)
[2018-02-18] MEDS: Diltiazem CD CAP* 180 MG PO SCH (09:30)
[2018-02-18] MEDS: predniSONE TAB* 5 MG PO SCH (09:31)
[2018-02-18] MEDS: Cholecalciferol TAB* 1000 UNITS PO SCH (09:31)
[2018-02-18] MEDS: Lidocaine PATCH 5%* 1 PATCH TRANSDERM SCH (09:37)
[2018-02-18] MEDS ORDERED: Dexamethasone TAB* 4 MG PO SCH (10:00)
--- NOTE | 2018-02-18 10:36 | DS ---
- Discharge Summary Admission Date: Discharge Date: 02/18/18 Discharge Diagnosis: 1. SIRS: resolved, no growth on cultures 2. HAZEL: improved and felt initially r/t hypovolemia and then secondary to obstruction, will need monitoring as outpatient and unclear if she will return to baseline 3. Pancytopenia: secondary to chemotherapy, resolved 4. COPD: currently on steroid taper and will have home O2, cont. inhalers and f/ u with pulm as outpatient 5. Urinary obstruction: felt r/t immobility, resolved with addition of flomax, f /u urology 6. CHF: cont. cardizem, resume lasix 7. SCLC: s/p definition therapy, f/u 2 weeks with imaging Discharge Medications: Home Medications Medication Instructions Recorded Confirmed Type Atorvastatin* [Lipitor 40 MG*] 40 mg PO QAM 11/09/14 02/10/18 History Montelukast Sodium TAB* [Singulair 10 mg PO DAILY PRN 11/09/14 02/10/18 History 10 MG TAB*] EPINEPHrine [Epipen 2-Osmin] 0.3 mg IM ONCE PRN 11/02/15 02/10/18 History Mometasone 220 MCG MDI * [Asmanex 1 puff INH BID PRN 01/11/17 02/10/18 History 220 MCG MDI *] Albuterol HFA INHALER* [Ventolin 1 - 2 puff INH Q4H PRN 09/17/17 02/10/18 History HFA Inhaler*] Budesonide/Formote 160/4.5(NF) 1 puff INH BID PRN 09/17/17 02/10/18 History [Symbicort 160/4.5 (NF)] Cholecalciferol TAB* [Vitamin D 1,000 unit PO QAM 09/17/17 02/10/18 History TAB*] Rivaroxaban TAB(*) [Xarelto 20 mg] 20 mg PO QPM 09/17/17 02/10/18 History Tiotropium CAP.INH* [Spiriva 1 cap.inh INH 1230 09/17/17 02/10/18 History CAP.INH*] dilTIAZem 360 MG 24HR ER (NF) 360 mg PO QAM 09/17/17 02/10/18 History [Diltiazem 360 mg 24Hr ER] Acetaminophen TAB* [Tylenol TAB*] 650 mg PO Q4H PRN tab 01/06/18 02/10/18 Rx Omeprazole CAP* [Prilosec CAP* 20 20 mg PO DAILY@0730 #30 cap.dr 01/06/18 Rx MG] Potassium Chlor TAB* [Potassium 20 meq PO DAILY #30 tab.er 01/06/18 02/10/18 Rx Chlor TAB 20 MEQ*] Furosemide TAB* [Lasix TAB*] 20 mg PO DAILY 02/10/18 02/10/18 History predniSONE TAB* [Deltasone TAB*] 5 mg PO DAILY 02/10/18 02/10/18 History Albuterol/Ipratropium NEB.PARVEEN* 1 neb INH Q4H PRN #180 neb.soln 02/18/18 Rx [Duoneb (Albuterol 2.5 MG/Ipratropium 0.5 MG)] Dexamethasone TAB* [Decadron TAB*] 8 mg PO DAILY #14 tab 02/18/18 Rx Lidocaine PATCH 5%* [Lidoderm 5% 1 patch TRANSDERM DAILY #30 patch 02/18/18 Rx Patch*] Loperamide CAP* [Imodium CAP*] 2 mg PO .SEE DIRECTIONS PRN cap 02/18/18 Rx Magnesium Oxide TAB* [MagOx 400 400 mg PO BID #90 tab 02/18/18 02/10/18 Rx TAB*] Tamsulosin CAP* [Flomax CAP*] 0.4 mg PO BEDTIME #30 cap 02/18/18 Rx oxyCODONE TAB* [Roxycodone TAB 5 5 mg PO Q6H PRN #120 tab MDD 4 tabs 02/18/18 Rx mg*] Hospital Course: Please see admission note for full H&P, however briefly, Mrs. Giraldo is well known to our service due to her recent diagnosis of limited stage SCLC. She has been on definitive therapy with radiation and chemotherapy now s/p C5 Carbo/ Etoposide with 20% dose reduction. She presented to the ER on 02/10/18 with neutropenic fevers, diarrhea, and cough and was admitted to the ICU with marked electrolyte abnormalities, SIRS, and concern for sepsis. Work-up has been essentially negative with no definitive source for infection including negative CT and negative cultures. She was transferred out of the ICU on 02/12/18 and has continued to recover slowly. Her diarrhea resolved with imodium and her renal function improved with hydration. Unfortunately she developed acute urinary retention with subsequent acute kidney injury requiring a catheter on . Attempt at discontinuing was unsuccessful that evening and Tamsulosin was started on 02/16. CT scan on admission showed no evidence for stones or hydronephrosis, a MRI of the lumbar spine completed 01/27 as an outpatient showed no evidence for cord compression or metastatic disease concerning for early compression, although she does have a T8 compression fracture. Yesterday she was able to urinate following removal of the catheter and is now urinating regularly. She has been working with PT and today was able to do the 5 stairs required to enter her house. Her breathing is returning to normal (COPD with possible pneumonia on chest x-ray in the ER), however she will require home O2 for the time being as well as a quick steroid taper. She will be discharged home with home care services including cont.'d PT. She will f/u with oncology on 03/04 with plan for post tx. restaging PET prior. She will also f/u with urology and pulmonology as an outpatient. Plan of care was discussed at length and all questions answered. >40 min spent wiht >50% face to face counseling
[2018-02-18 12:08] VITALS: BP 157/66
== END 2018-02-18 13:25 | disposition home health service (06) | DRG 809 ==
LOC: ED 11:03 → ICU 13:28 → MED 02-12 17:54
PROVIDERS: ADMIT Internal Medicine; ATTEND Internal Medicine Hematology & Oncology
PROC: 30233N1 Transfusion of Nonautologous Red Blood Cells into Peripheral Vein, Percutaneous Approach (ICD-10-PCS; principal; 2018-02-14)
PROC: 0TPBX0Z Removal of Drainage Device from Bladder, External Approach (ICD-10-PCS; 2018-02-15)
PROC: 0T9B70Z Drainage of Bladder with Drainage Device, Via Natural or Artificial Opening (ICD-10-PCS; 2018-02-15)
DX: D61.810 Antineoplastic chemotherapy induced pancytopenia (principal); N17.9 Acute kidney failure, unspecified; K52.1 Toxic gastroenteritis and colitis; R65.10 Systemic inflammatory response syndrome (SIRS) of non-infectious origin without acute organ dysfunction; C34.90 Malignant neoplasm of unspecified part of unspecified bronchus or lung; E87.1 Hypo-osmolality and hyponatremia; J98.11 Atelectasis; M48.54XA Collapsed vertebra, not elsewhere classified, thoracic region, initial encounter for fracture; J44.1 Chronic obstructive pulmonary disease with (acute) exacerbation; E78.5 Hyperlipidemia, unspecified; G47.33 Obstructive sleep apnea (adult) (pediatric); J44.9 Chronic obstructive pulmonary disease, unspecified; I48.91 Unspecified atrial fibrillation; I50.9 Heart failure, unspecified; R50.81 Fever presenting with conditions classified elsewhere; I95.9 Hypotension, unspecified; R74.0 Nonspecific elevation of levels of transaminase and lactic acid dehydrogenase [LDH]; E87.6 Hypokalemia; T45.1X5A Adverse effect of antineoplastic and immunosuppressive drugs, initial encounter; Y92.9 Unspecified place or not applicable; E78.00 Pure hypercholesterolemia, unspecified; M19.90 Unspecified osteoarthritis, unspecified site; I72.3 Aneurysm of iliac artery; E66.9 Obesity, unspecified; I11.0 Hypertensive heart disease with heart failure; E86.1 Hypovolemia; N13.9 Obstructive and reflux uropathy, unspecified; G89.29 Other chronic pain; R33.9 Retention of urine, unspecified; Z92.21 Personal history of antineoplastic chemotherapy; Z92.3 Personal history of irradiation; Z87.01 Personal history of pneumonia (recurrent); Z87.440 Personal history of urinary (tract) infections; Z88.1 Allergy status to other antibiotic agents; Z88.5 Allergy status to narcotic agent; Z88.2 Allergy status to sulfonamides; Z91.018 Allergy to other foods; Z87.891 Personal history of nicotine dependence; Z79.52 Long term (current) use of systemic steroids
CPT/HCPCS: 36415; 71045; 74177; 76705; 78226; 80048; 80053; 80074; 80076; 80202; 81003; 81015; 82272; 83605; 83735; 83930; 84100; 84484; 85014; 85018; 85025; 85060; 85610; 85730; 86850; 86900; 86901; 86922; 87040; 87045; 87046; 87086; 87493; 87899; 93005; 94640; 99232; 99233; 99239; 99285; A9270-GY; A9537; C9132; G8978-GP-CJ; G8979-GP-CI; J0692; J1160; J1642; J2270; J2920; J2997; J3010; J3370; J3475; J3480; J3490; J7512; J8540; P9040; Q9967

== ENCOUNTER 2018-02-28 20:27 | Inpatient (IN) | payer MEDICARE ==
--- OUTSIDE RECORDS SUMMARY | 2018-02-28 21:05 | XMS REPORT | Continuity of Care Document ---
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 Lorelei Pickett MD Primary Care Physician Unavailable Payers Type Date Identification Numbers Payment Provider Subscriber Expires: 2017 Policy Number: [id number] Medicare Blue Ppo Kassandra Naylor Group Number: [id number] [address] [address] PayID: [id number] ROBINSON Prasad [address] Effective: 2017 Policy Number: Todays Option/Togolese pr Kassandra Naylor [id number] PayID: [id number] [address] [address] Attn: [place] [address] Advance Directives Description No Information Available Problems Date Description Provider Status Onset: 06/19/2013 [...] None Social History Type Date Description Comments Sex Unknown Marital Status Lives With Occupation Unemployed 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 Tobacco Use Start: Unknown Former Cigarette End: Unknown Smoker Smoking Status Reviewed: 01/27/18 Former Cigarette Smoker ETOH Use Denies alcohol use Tobacco Use Start: Unknown Patient is a former smoked 1-1/2 pack End: Unknown smoker per day cigarettes for 30 years , quite 2004 Recreational Drug Use Denies Drug Use Exercise Type/Frequency Does not exercise Allergies, Adverse Reactions, Alerts Date Description Reaction Status Severity Comments 06/19/2013 Eggs or Egg-derived throat swelling Active Moderate Can eat products Products that contain eggs 06/19/2013 Codeine rapid heart beat Active Severe 06/19/2013 [place] Syrup tongue swelling Active Severe 06/19/2013 Sulfa Antibiotics rash, buring Active Severe feeling 06/19/2013 Artichoke rash,buring Active Severe feeling 06/19/2013 Avocado rash and buring Active Severe feeling 06/19/2013 Levaquin rash Active Moderate 06/19/2013 Clindamycin rash Active Moderate 11/23/2015 Codeine Active 05/28/2017 Dust Mites Active 05/28/2017August Grass Pollen Active Extract Medications Medication Date Status Form Strength [...] mouth Abhishek Potassium s every day James eBck M.D. Montelukast 11/21 Active Tablets 10mg 1 by mouth Unknown Sodium every day Atorvastatin Active Tablets 40mg 90tab 1 by mouth Unknown Calcium /0000 s every day Vitamin D High Active Capsules 1000Unit 1 by mouth Unknown Potency /0000 every day Xarelto Active Tablets 20mg 30tab 1 by mouth Abhishek /0000 s every day James Beck M.D. Levocetirizine Active Tablets 5mg 1 by mouth Unknown Dihydrochloride /0000 every day Levalbuterol Active Aerosol 45mcg/Act inhale 2 Unknown Tartrate /0000 puffs by mouth every 4 hours as needed Asmanex HFA Active Aerosol 200mcg/Ac 1 Unknown / t inhalation twice daily Diltiazem HCL ER Active Caps ER 360mg 1 cap po Blegen, Beads 24HR daily MD Lorelei Spiriva Respimat Active Aerosol 1.25mcg/A inhale two Unknown / ct puffs by mouth every day Ventolin HFA Active Aerosol 108(90Bas 2 puffs by Unknown / e) mouth four mcg/Act times a day as needed Magnesium Active Tablets 1200mg 1 by mouth Unknown / every day Prednisone Active Tablets 5mg 2 tabs by J45.901 Unknown / mouth daily (tapering, currently 10 mg 01/27/18) Carboplatin Active Solution 600mg/60M chemo Unknown /0000 L infusion Etoposide Active Solution 230 chemo [...] twice a day Norma, - ( finished 09/15 treatment) Prednisone 07/26 Hx Tablets 5mg 14tab 1 tab by J45.41 Matilde /2017 s mouth every Norma, - day every MD 11/28 morning /2016 Prednisone 07/05 Hx Tablets 10mg 42tab 30mg daily J45.41 Matilde s for 1 week, Norma, - 20mg daily 07/25 for 1 week, 10 mg daily [...] s every day - 07/04 Advair Diskus 00 Hx Aerosol 250-50mcg 1 puff by Unknown /0000 /Dose mouth twice - a day 11/21 Fish Oil 00 Hx Capsules 1000mg 1 by mouth Unknown [...] /0000 dose, for - pneumonia 07/25 Clarinex 00 Hx Tablets 5mg 1 by mouth Unknown /0000 every day - 12/20 Mometasone Hx Suspension 50mcg/Act spray 2 Unknown Furoate /0000 sprays into - each 07/30 nostril two times daily Augmentin Hx Tablets 875-125mg 1 tablet by Unknown /0000 mouth q12 - hours for 07/30 Prednisone Hx Tablets 5mg 1 tablet po Blegen, /0000 daily ( Lorelei, - started 09/2307/31/17 Nitrofurantoin Hx Capsules 100mg 2 by [...] Millicuries Depomedrol Administered Injection Nguyễn 80MG 011 Srinivasan, M.D. Immunizations Description No Information Available Vital Signs Date Vital Result Comment 01/27/2018 10:23am Height 64 inches 5'4" Weight 263.38 lb Heart Rate 84 /min BP Systolic Sitting 122 mmHg Lue large cuff BP Diastolic Sitting 56 mmHg Lue large cuff Respiratory Rate 20 /min O2 % BldC Oximetry 95 % On Ra BMI (Body Mass Index) 45.2 kg/m2 12/10/2017 11:47am Height 64 inches 5'4" Weight 277.00 lb Heart Rate 80 /min BP Systolic Sitting 118 mmHg BP Diastolic Sitting 60 mmHg Respiratory Rate 14 /min O2 % BldC Oximetry 95 % BMI (Body Mass Index) 47.5 kg/m2 12/03/2017 12:29pm Height 64 inches 5'4" Weight 280.12 lb shoes on Heart Rate 78 /min BP Systolic Sitting 128 mmHg left arm, large cuff, sitting BP Diastolic Sitting 58 mmHg left arm, large cuff, sitting Respiratory Rate 16 /min Body Temperature 98.4 F O2 % BldC Oximetry 94 % BMI (Body Mass Index) 48.1 kg/m2 09/23/2017 10:15am Height 64 inches 5'4" Weight 279.50 lb Heart Rate 70 /min BP Systolic Sitting 132 mmHg Lue large cuff BP Diastolic Sitting 60 mmHg Lue large cuff Respiratory Rate 24 /min O2 % BldC Oximetry 93 % On Ra BMI (Body Mass Index) 48.0 kg/m2 09/16/2017 12:24pm Height 64 inches 5'4" Weight 281.25 lb Heart Rate 78 /min BP Systolic Sitting 116 mmHg Lue large cuff BP Diastolic Sitting 54 mmHg Lue large cuff Respiratory Rate 26 /min O2 % BldC Oximetry 95 % On Ra BMI (Body Mass Index) 48.3 kg/m2 09/02/2017 9:08am Height 64 inches 5'4" Weight 283.00 lb Heart Rate 75 /min BP Systolic Sitting 126 mmHg Lue large cuff BP Diastolic Sitting 72 mmHg Lue large cuff Respiratory Rate 24 /min O2 % BldC Oximetry 93 % BMI (Body Mass Index) 48.6 kg/m2 07/31/2017 11:16am Height 64 inches 5'4" Weight 287.00 lb [...] Ejection Fraction >65% date 11/03/15 ECHO 05/28/2017 12:34pm Height 64 inches 5'4" Weight 279.00 lb Heart Rate 76 /min BP Systolic Sitting 134 mmHg BP Diastolic Sitting 66 mmHg Respiratory Rate 14 /min O2 % BldC Oximetry 92 % BMI (Body Mass Index) 47.9 kg/m2 01/23/2017 10:00am Height 64 inches 5'4" Weight 282.00 lb with shoes Heart Rate 76 /min BP Systolic Sitting 146 mmHg Lue lrg cuff BP Diastolic Sitting 68 mmHg Lue lrg cuff BP Systolic Standing 150 mmHg Lue lrg cuff BP Diastolic Standing 70 mmHg Lue lrg cuff Respiratory Rate 17 /min BMI (Body Mass Index) 48.4 kg/m2 Ejection Fraction >65% 11/03/2015-echo 12/21/2016 10:57am Height 64 inches 5'4" Weight 280.00 lb with shoes Heart Rate 70 /min BP Systolic Sitting 130 mmHg Lue lg cuff BP Diastolic Sitting 70 mmHg Lue lg cuff BP Systolic Standing 142 mmHg Lue lg cuff BP Diastolic Standing 70 mmHg Lue lg cuff Respiratory Rate 17 /min BMI (Body Mass Index) 48.1 kg/m2 Ejection Fraction >65% date 11/03/2015 ECHO 11/28/2016 11:40am Height 64 inches 5'4" Weight 278.00 lb Heart Rate 72 /min BP Systolic Sitting 126 mmHg BP Diastolic Sitting 70 mmHg Respiratory Rate 14 /min O2 % BldC Oximetry 95 % BMI (Body Mass Index) 47.7 kg/m2 09/13/2016 1:25pm Height 64 inches 5'4" Weight 282.00 lb Heart Rate 74 /min BP Systolic Sitting 150 mmHg BP Diastolic Sitting 76 mmHg Respiratory Rate 24 /min O2 % BldC Oximetry 96 % room air BMI (Body Mass Index) 48.4 kg/m2 07/26/2016 10:49am Height 64 inches 5'4" Weight 270.00 lb Heart Rate 66 /min BP Systolic Sitting 122 mmHg BP Diastolic Sitting 78 mmHg Respiratory Rate 18 /min Pain Level 0 O2 % BldC Oximetry 97 % BMI (Body Mass Index) 46.3 kg/m2 07/23/2016 1:02pm Height 64 inches 5'4" Weight 270.00 lb Heart Rate 60 /min BP Systolic 148 mmHg BP Diastolic 69 mmHg Respiratory Rate 16 /min Body Temperature 98.0 F Pain Level 2 BMI (Body Mass Index) 46.3 kg/m2 07/05/2016 10:50am Height 64 inches 5'4" Heart Rate 77 /min BP Systolic Sitting 100 mmHg BP Diastolic Sitting 40 mmHg Respiratory Rate 18 /min Pain Level 0 discomfort in neck - cutting off breath O2 % BldC Oximetry 92 % 07/04/2016 10:12am Height 64 inches 5'4" Weight 263.50 lb [...] Ejection Fraction less 65% 11/07 echo 06/18/2016 2:47pm Height 64 inches 5'4" Weight 270.00 lb Heart Rate 32 /min BP Systolic 165 mmHg BP Diastolic 73 mmHg Respiratory Rate 16 /min Body Temperature 98.1 F Pain Level 4 BMI (Body Mass Index) 46.3 kg/m2 04/30/2016 11:13am Height 64 inches 5'4" Weight 270.00 lb Heart Rate 66 /min BP Systolic 153 mmHg BP Diastolic 67 mmHg Respiratory Rate 20 /min Pain Level 6 BMI (Body Mass Index) 46.3 kg/m2 04/18/2016 10:45am Height 64 inches 5'4" Weight 270.00 lb w/o shoes Heart Rate 78 /min irreg BP Systolic Sitting 148 mmHg Lue, lg cuff BP Diastolic Sitting 74 mmHg Lue, lg cuff BP Systolic Standing 142 mmHg Lue BP Diastolic Standing 74 mmHg Lue Respiratory Rate 20 /min BMI (Body Mass Index) 46.3 kg/m2 Ejection Fraction > 65% as of 11/03/15 echo 04/12/2016 10:37am Height 64 inches 5'4" Weight 262.00 lb Heart Rate 56 /min BP Systolic 144 mmHg BP Diastolic 58 mmHg BMI (Body Mass Index) 45.0 kg/m2 02/21/2016 11:33am Height 64 inches 5'4" Weight 265.00 lb Heart Rate 105 /min BP Systolic Sitting 148 mmHg BP Diastolic Sitting 78 mmHg Respiratory Rate 16 /min O2 % BldC Oximetry 96 % BMI (Body Mass Index) 45.5 kg/m2 01/04/2016 11:25am Height 64.5 inches 5'4.50" Weight 261.00 lb Heart Rate 61 /min BP Systolic Sitting 142 mmHg BP Diastolic Sitting 74 mmHg Respiratory Rate 16 /min O2 % BldC Oximetry 95 % BMI (Body Mass Index) 44.1 kg/m2 11/25/2015 12:58pm Height 64.5 inches 5'4.50" Weight 261.00 lb with shoes BP Systolic Sitting 154 mmHg Ra lrg cuff BP Diastolic Sitting 72 mmHg Ra lrg cuff BP Systolic Standing 148 mmHg Ra lrg cuff BP Diastolic Standing 72 mmHg Ra lrg cuff Respiratory Rate 18 /min BMI (Body Mass Index) 44.1 kg/m2 Ejection Fraction 55-60% 11/03/15 11/23/2015 11:21am Height 64.5 inches 5'4.50" Weight 263.12 lb Heart Rate 68 /min BP Systolic Sitting 134 mmHg BP Diastolic Sitting 79 mmHg Respiratory Rate 18 /min O2 % BldC Oximetry 94 % BMI (Body Mass Index) 44.5 kg/m2 11/16/2015 10:49am Height 64.5 inches 5'4.50" Weight 245.00 lb Pain Level 8 BMI (Body Mass Index) 41.4 kg/m2 09/01/2015 3:55pm Height 64.5 inches 5'4.50" Weight 245.00 lb Heart Rate 72 /min BP Systolic Sitting 138 mmHg BP Diastolic Sitting 78 mmHg Respiratory Rate 18 /min Pain Level 2 BMI (Body Mass Index) 41.4 kg/m2 07/29/2015 3:37pm Height 64.5 inches 5'4.50" Weight 247.00 lb Pain Level 7 BMI (Body Mass Index) 41.7 kg/m2 06/08/2015 10:48am Height 64.5 inches 5'4.50" Weight 247.00 lb BMI (Body Mass Index) 41.7 kg/m2 04/27/2015 10:55am Height 64.5 inches 5'4.50" Weight 247.00 lb Pain Level 8 BMI (Body Mass Index) 41.7 kg/m2 03/31/2015 11:31am Height 64.50 inches 5'4.50" Weight 247.00 lb Pain Level 8 BMI (Body Mass Index) 41.7 kg/m2 01/04/2015 1:24pm Height 64.50 inches 5'4.50" Weight 247.00 lb Respiratory Rate 20 /min Pain Level 2 BMI (Body Mass Index) 41.7 kg/m2 11/30/2014 1:19pm Height 64.50 inches 5'4.50" Weight 247.00 lb BP Systolic Sitting 148 mmHg BP Diastolic Sitting 69 mmHg Respiratory Rate 18 /min Pain Level 4 BMI (Body Mass Index) 41.7 kg/m2 07/14/2013 1:06pm Height 64.50 inches 5'4.50" Weight 253.00 lb with shoes Heart Rate 66 /min BP Systolic Sitting 130 mmHg LA lg cuff BP Diastolic Sitting 60 mmHg LA lg cuff BP Systolic Standing 122 mmHg BP Diastolic Standing 60 mmHg Respiratory Rate 16 /min BMI (Body Mass Index) 42.8 kg/m2 06/19/2013 1:58pm Height 65 inches 5'5" Weight 247.00 lb [...] BMI (Body Mass Index) 41.1 kg/m2 12/13/2010 1:28pm Height 64 inches 5'4" Weight 247.00 lb Heart Rate 71 /min BP Systolic 144 mmHg BP Diastolic 70 mmHg BMI (Body Mass Index) 42.4 kg/m2 Results Test Date Facility Test Result H/L Range Note Sputum Culture 12/04/2017 [facility] Sputum Culture SEE RESULT [address] [place] [address] [phone] Platelet Count 11/01/2017 [facility] Platelet Count 259 10^3/uL N [address] [place] [address] [phone] Mean Platelet Volume 9.1 um3 N 7.4-10.4 Inr/Protime 11/01/2017 [facility] Inr 0.96 N 0.77-1.[address] [place] [address] [phone] Laboratory test 11/01/2017 [facility] Partial Thrombo 27.2 N 26.0-36.[address] [place] [address] [phone] Leukemia/Lympho 10/31/2017 [facility] Path tnp ma Flow [address] [place] [address] 2-8 Marker [phone] Path Interpret 9-15 Marker (SEE NOTE) 2 Path Interpret > 16 Marker tnp Laboratory test 10/31/2017 [facility] Cytology SEE RESULT [address] [place] [address] [phone] Laboratory test 09/18/2017 [facility] Cytology SEE RESULT [address] Non-Baby Nurse BELOW [place], [place] [id number] [phone] Comp Metabolic 09/28/2016 [facility] Sodium 140 mmol/L N 133- [address] [place] [address] [phone] Potassium 3.6 mmol/L N 3.5-5.0 Chloride 104 mmol/L N 101-111 Co2 Carbon Dioxide 24 mmol/L N 22-32 Anion Gap 12 mmol/L High 2-11 Glucose 91 mg/dL N 70-100 Blood Urea Nitrogen 13 mg/dL N 6-24 Creatinine 0.93 mg/dL N 0.51-0.95 BUN/Creatinine Ratio 14.0 N 8-20 Calcium 9.9 mg/dL N 8.6-10.3 Total Protein 6.8 g/dL N 6.4-8.9 Albumin 4.0 g/dL N 3.2-5.2 Globulin 2.8 g/dL N 2-4 Albumin/Globulin Ratio 1.4 N 1-3 Total Bilirubin 0.60 mg/dL N 0.2-1.0 Alkaline Phosphatase 68 U/L N 34-104 Alt 30 U/L N 7-52 Ast 14 U/L N 13-39 Egfr Non- 59.6 N >60 Egfr 76.7 N >60 5 CBC Auto 09/28/2016 [facility] White Blood 14.7 10^3/uL High 3.5-10.[address] [place] [address] [phone] Red Blood Count 4.02 10^6/uL N 4.0-5.4 Hemoglobin 12.9 g/dL N 12.0-16.0 Hematocrit 40 % N 35-47 Mean Corpuscular Volume 99 fL High 80-97 Mean Corpuscular Hemoglobin 32 pg High 27-31 Mean Corpuscular HGB Conc 32 g/dL N 31-36 Red Cell Distribution Width 15 % N 10.5-15 Platelet Count 275 10^3/uL N 150-450 Mean Platelet Volume 10 um3 N 7.4-10.4 Abs Neutrophils 10.7 10^3/uL High 1.5-7.7 Abs Lymphocytes 2.7 10^3/uL N 1.0-4.8 Abs Monocytes 1.0 10^3/uL High 0-0.8 Abs Eosinophils 0.2 10^3/uL N 0-0.6 Abs Basophils 0.1 10^3/uL N 0-0.2 Abs Nucleated RBC 0.01 10^3/uL N Granulocyte % 72.9 % N 38-83 Lymphocyte % 18.3 % Low 25-47 Monocyte % 6.6 % N 1-9 Eosinophil % 1.4 % N 0-6 Basophil % 0.8 % N 0-2 Nucleated Red Blood Cells % 0 N Laboratory 09/28/2016 [facility] Immunoglobulin E 262 Abnormal <=214 6 test finding [address] [place] kU/[place] [address] [phone] Laboratory 07/26/2016 [facility] Immunoglobulin E 362 Abnormal <=214 7 test finding [address] (Ige) kU/L [place], [place] [id number] [phone] Anti Nuclear Antibody 0.3 U N 8 CBC Auto 07/26/2016 [facility] White Blood 16.7 10^3/uL High 3.5-10.[address] [place] [address] [phone] Red Blood Count 3.99 10^6/uL Low 4.0-5.4 Hemoglobin 12.5 g/dL N 12.0-16.0 Hematocrit 39 % N 35-47 Mean Corpuscular Volume 98 fL High 80-97 Mean Corpuscular Hemoglobin 31 pg N 27-31 Mean Corpuscular HGB Conc 32 g/dL N 31-36 Red Cell Distribution Width 15 % N 10.5-15 Platelet Count 228 10^3/uL N 150-450 Mean Platelet Volume 10 um3 N 7.4-10.4 Abs Neutrophils 11.6 10^3/uL High 1.5-7.7 Abs Lymphocytes 3.3 10^3/uL N 1.0-4.8 Abs Monocytes 1.4 10^3/uL High 0-0.8 Abs Eosinophils 0.2 10^3/uL N 0-0.6 Abs Basophils 0.1 10^3/uL N 0-0.2 Abs Nucleated RBC 0 10^3/uL N Granulocyte % 69.6 % N 38-83 Lymphocyte % 19.8 % Low 25-47 Monocyte % 8.7 % N 1-9 Eosinophil % 1.0 % N 0-6 Basophil % 0.9 % N 0-2 Nucleated Red Blood Cells % 0 N 1 SEE RESULT BELOW Name: KASSANDRA NAYLOR : [address]: Matilde Green MD Acct: [id number] Unit: [id number] AGE: 72 Location: [facility] Re12/04/17 SEX: F Status: REG REF SPEC: [id number] PAWEL: 12/04/17-[address]: Matilde Green MD REQ: [id number] RECD: 12/04/17 STATUS: COMP _ SOURCE: SPUTUM,EXP [...] . END OF REPORT DEPARTMENT OF PATHOLOGY, [address] [place] [address] Apolinar Louis M.D. Director [facility] # [id number] 2 FINAL DIAGNOSIS: Specimen Source: Left parotid ([id number]) Flow cytometry immunophenotypic analysis: No evidence of [...] MD 11/04/17 0949 Technical component performed by: [place] [address] Lead Maintenance Technician: Federico Dow II, MD, PhD. 3 SEE RESULT BELOW Name: KASSANDRA NAYLOR : [address]: Ishmael AZEVEDO Acct: [id number] Unit: [id number] AGE: 72 Location: Re10/31/17 SEX: F Status: REG REF SPEC: [id number] PAWEL: 10/31/17-[address] [facility] [address]: Ishmael AZEVEDO REQ: [id number] RECD: 10/31/17 STATUS: TERESSA MONTERO DR: Bruce Bruno MD _ ORDERED: FNA-IMG GUID BX, CY ADEQ-ADDL P, LEVEL 4, CYTO ADEQ-1ST P Flow cytometry has been performed at [place], [place]. The testing reveals: FINAL DIAGNOSIS: Specimen Source: Left parotid ([id number]) Flow cytometry immunophenotypic analysis:No evidence of an [...] Joe MD11/04/17 0949 Technical component performed by: [place] [address] Lead Maintenance Technician: Federico Dow II, MD, PhD. Addendum Signed (signature on file) Candi Joe MD 1706 FINAL DIAGNOSIS CONTINUED ON NEXT PAGE DEPARTMENT OF PATHOLOGY, [address] [place] [address] Apolinar Louis M.D. Director [facility] # [id number] RUN DATE: 11/05/17 [facility] LAB LIVE PAGE 2 Patient: KASSANDRA NAYLOR [id number] (Continued) FINAL DIAGNOSIS (Continued) Left parotid lymph [...] formalin for cell blockand Specimen sent to [facility] for Flow cytometry [place], [place] on 10/31/17. Signed by and Reported on: Candi Joe MD 11/04/17 1055 END OF REPORT DEPARTMENT OF PATHOLOGY, [address] [place] [address] Apolinar Louis M.D. Director [facility] # [id number] 4 SEE RESULT BELOW Name: KASSANDRA NAYLOR : [address]: Matilde Green MD Acct: [id number] Unit: [id number] AGE: 72 Location: [place] Re09/18/17 SEX: F Status: DEP [facility] SPEC: [id number] PAWEL: 09/18/17-[address]: Matilde Green MD REQ: [id number] RECD: 09/18/17-1529 STATUS: SOUT _ ORDERED: FNA-IMG GUID BX/3, [...] CONTINUED ON NEXT PAGE DEPARTMENT OF PATHOLOGY, [address] [place] [address], [place] [address] Apolinar Louis M.D. Director [facility] # [id number] RUN DATE: 09/20/17 [facility] LAB LIVE PAGE 2 Patient: KASSANDRA NAYLOR [id number] (Continued) FINAL DIAGNOSIS (Continued) Comment: Dr. Joe [...] 1210 END OF REPORT DEPARTMENT OF PATHOLOGY, [address] [place] [address] Apolinar Louis M.D. Director [facility] # [id number] 5 Because ethnic data is not always [...] <15 (or dialysis) 6 Test Performed by: [address] [address] 7 Test Performed by: [address] [address] 8 REFERENCE VALUE <=1.0 (Negative) Test Performed by: [address] [address] Procedures Date Code Description Status 01/15/2018 62466 ECHO Transthorasic Realtime 2D W Doppler & Color Flow Hosp Completed 12/22/2017 70050 Implantable Cardio System Loop Recorder Sys Remota Data Completed [facility] 12/22/2017 77702 Interrogation Dev Loop Recorder Incl Physician Completed Analysis,Rev,Repor 11/21/2017 06753 Implantable Cardio System Loop Recorder Sys Remota Data Completed [facility] 11/21/2017 13996 Interrogation Dev Loop Recorder Incl Physician Completed Analysis,Rev,Repor 11/01/2017 87850 Moderate Sedation Services; Same Phys Each Additional 15 Completed Mins 11/01/2017 94325 Moderate Sedation Services; Same Phys Intl 15 Mins; PT >=5 Completed Years 11/01/2017 77575 Fluoroscopic Guidance For Cent Completed 11/01/2017 62333 Ultrasound Guidance For Vascular Access Completed 11/01/2017 41823 Insertion Tunneled Cent Venous Cathr W Subcut Port 5 Yrs Completed Or Oldr 10/21/2017 10102 Implantable Cardio System Loop Recorder Sys Remota Data Completed [facility] 10/21/2017 08285 Interrogation Dev Loop Recorder Incl Physician Completed Analysis,Rev,Repor 09/20/2017 66052 Interrogation Dev Loop Recorder Incl Physician Completed Analysis,Rev,Repor 09/20/2017 88860 Implantable Cardio System Loop Recorder Sys Remota Data Completed [facility] 09/18/2017 70526 Endobronchial Ultrasound=>3 Completed 08/20/2017 49093 Implantable Cardio System Loop Recorder Sys Remota Data Completed [facility] 08/20/2017 53895 Interrogation Dev Loop Recorder Incl Physician Completed Analysis,Rev,Repor 07/31/2017 71092 EKG Tracing & Interpretation Completed 07/20/2017 04010 Implantable Cardio System Loop Recorder Sys Remota Data Completed [facility] 07/20/2017 66929 Interrogation Dev Loop Recorder Incl Physician Completed Analysis,Rev,Repor 06/19/2017 53230 Implantable Cardio System Loop Recorder Sys Remota Data Completed [facility] 06/19/2017 10532 Interrogation Dev Loop Recorder Incl Physician Completed Analysis,Rev,Repor 05/19/2017 28215 Implantable Cardio System Loop Recorder Sys Remota Data Completed [facility] 05/19/2017 16719 Interrogation Dev Loop Recorder Incl Physician Completed Analysis,Rev,Repor 04/18/2017 28173 Implantable Cardio System Loop Recorder Sys Remota Data Completed [facility] 04/18/2017 03043 Interrogation Dev Loop Recorder Incl Physician Completed Analysis,Rev,Repor 03/18/2017 75548 Interrogation Dev Loop Recorder Incl Physician Completed Analysis,Rev,Repor 03/18/2017 52333 Implantable Cardio System Loop Recorder Sys Remota Data Completed [facility] 02/15/2017 77406 Implantable Cardio System Loop Recorder Sys Remota Data Completed [facility] 02/15/2017 59994 Interrogation Dev Loop Recorder Incl Physician Completed Analysis,Rev,Repor 01/14/2017 78470 Implant Cardiac Loop Recorder Completed 12/21/2016 82597 EKG Tracing & Interpretation Completed 07/04/2016 94361 EKG Tracing & Interpretation Completed 04/18/2016 31817 EKG Tracing & Interpretation Completed 04/12/2016 10712 Inject/Drain Joint/Bursa Major W/O US Completed 12/21/2015 16903 Polysomnography Sleep Staging 4+ Parameters Completed 12/14/2015 06162 Diffusing Capacity Completed 12/14/2015 70294 Plethysmography Determination Lung Volumes & Per Airway Completed Resist 12/14/2015 47061 Pulmonary Function><Bronchodil Completed 11/25/2015 48249 EKG Tracing & Interpretation Completed 11/16/2015 77784 Inject/Drain Joint/Bursa Major W/O US Completed 11/03/2015 89888 ECHO Transthorasic Realtime 2D W Doppler & Color Flow Hosp Completed 07/29/201542098 Inject/Drain Joint/Bursa Major W/O US Completed 07/29/201549572 Inject/Drain Joint/Bursa Major W/O US Completed 04/27/2015 30231 Inject/Drain Joint/Bursa Major W/O US Completed 11/30/2014 04920 Inject/Drain Joint/Bursa Major W/O US Completed 07/01/2013 79168 Stress Test Completed 07/01/2013 47961 Myocardial Perfusion Imaging Tomographic (Spect) Multiple Completed Studies 12/13/2010 19752 Xray Knee 3 Views Completed 12/13/2010 Inject/Drain Joint/Bursa Major W/O US Completed 12/05/2010 85932 Color Flow Doppler/Interp & Reprt Completed 12/05/2010 22837 Pulse Wave/Continuous-Interp.RPT Completed 12/05/2010 07693 ECHO Transthorasic Realtime 2D W Doppler & Color Flow Hosp Completed Encounters Type Date Location Provider Dx Diagnosis Office Visit 01/27/2018 [facility]in Welch.40 Moderate persistent 10:45a [facility], Lot Attendant uncomplicated G47.33 Obstructive sleep apnea (adult) (pediatric) C34.90 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 bronchus or lung E66.09 Other obesity due to excess calories Office Visit 01/03/2018 11:22a [facility] Abimael Ramirez D70.9 Neutropenia, For Infectious Ashly Pulliam unspecified Diseases C34.90 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 bronchus or lung Z92.3 Personal history of irradiation Office Visit 12/10/2017 [facility] Matilde J45.901 Unspecified asthma 12:00p [facility] with (acute) Lot Attendant exacerbation G47.33 Obstructive sleep apnea (adult) (pediatric) E66.01 Morbid (severe) obesity due to excess calories Office Visit 12/03/2017 Pulmonology & Matilde J45.901 Unspecified asthma 12:00p [facility] with (acute) John exacerbation J20.9 Acute bronchitis, unspecified G47.33 Obstructive sleep apnea (adult) (pediatric) E66.01 Morbid (severe) obesity due to excess calories C34.90 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 bronchus or lung E66.09 Other obesity due to excess calories Office Visit 09/23/2017 10:30a [facility] And Kasey STravis G47.33 Obstructive sleep [facility] [place] apnea (adult) Lot Attendant (pediatric) E66.09 Other obesity due to excess calories J45.40 Moderate persistent asthma, uncomplicated C34.90 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 bronchus or lung Office Visit 09/16/2017 12:30p [facility] And Matilde R59.0 Localized enlarged [facility] lymph nodes Lot Attendant Office Visit 09/02/2017 9:15a [facility] Mat[facility] J45.41 Moderate Sleep Services [facility] persistent asthma Lot Attendant with (acute) exacerbation G47.33 Obstructive sleep apnea (adult) (pediatric) E66.09 Other obesity due to excess calories Office Visit 07/31/2017 11:30a [facility] Abhishek D. I48.0 Paroxysmal atrial Of Tung Beck M.D. fibrillation Z95.818 Presence of other cardiac implants and grafts Office Visit 05/28/2017 12:30p Pulmonology & Matilde J45.41 Moderate Sleep Services AT [facility] persistent asthma [place] with (acute) exacerbation G47.33 Obstructive sleep apnea (adult) (pediatric) E66.09 Other obesity due to excess calories Office Visit 01/23/2017 10:15a [facility] Abhsihek D. I48.0 Paroxysmal atrial Of Tung Beck M.D. fibrillation I10 Essential (primary) hypertension Office Visit 12/21/2016 11:15a [facility] Abhishek D. I48.0 Paroxysmal atrial Of Tung Beck M.D. fibrillation I10 Essential (primary) hypertension R06.02 Shortness of breath Office Visit 11/28/2016 11:00a [facility] And Matilde G47.33 Obstructive sleep [facility] apnea (adult) Lot Attendant (pediatric) J45.40 Moderate persistent asthma, uncomplicated J01.80 Other acute sinusitis Office Visit 09/13/2016 1:30p [facility] And Mat[facility] J45.41 Moderate [facility] persistent asthma Lot Attendant with (acute) exacerbation J30.9 Allergic rhinitis, unspecified G47.33 Obstructive sleep apnea (adult) (pediatric) E66.01 Morbid (severe) obesity due to excess calories Z68.42 Body mass index (BMI) 45.0-49.9, adult Office Visit 07/26/2016 10:45a [facility] Mat[facility] J45.41 Moderate [facility] persistent asthma Lot Attendant with (acute) exacerbation G47.33 Obstructive sleep apnea (adult) (pediatric) E66.01 Morbid (severe) obesity due to excess calories Z68.42 Body mass index (BMI) 45.0-49.9, adult Office Visit 07/23/2016 1:00p [facility] F M75.31 [facility] tendinitis of C.M.A. right shoulder M19.011 Primary osteoarthritis, right shoulder M75.41 Impingement syndrome of right shoulder Office Visit 07/05/2016 10:45a [facility] And Mat[facility] J45.41 Moderate [facility] persistent asthma Lot Attendant with (acute) exacerbation G47.33 Obstructive sleep apnea (adult) (pediatric) E66.01 Morbid (severe) obesity due to excess calories Office Visit 07/04/2016 10:30a [facility] Abhishek Ramirez I48.0 Paroxysmal atrial Of Lot Attendant Ashly Beck fibrillation J44.0 Chronic obstructive pulmon disease w acute lower resp infct I10 Essential (primary) hypertension Z01.810 Encounter for preprocedural cardiovascular examination M19.011 Primary osteoarthritis, right shoulder Office Visit 06/18/2016 2:45p [facility] Christian F M75.31 [facility] [place] tendinitis of C.M.A. right shoulder M19.011 Primary osteoarthritis, right shoulder M75.41 Impingement syndrome of right shoulder Office Visit 04/30/2016 11:15a [facility] Christian Cai M75.31 Calc[facility] Of [facility] [place] tendinitis of C.M.A. right shoulder M75.41 Impingement syndrome of right shoulder M19.011 Primary osteoarthritis, right shoulder Office Visit 04/18/2016 11:00a [facility] Abhishek Ramirez I48.0 Paroxysmal atrial Of Lot Attendant Ashly Beck fibrillation R06.02 Shortness of breath J44.0 Chronic obstructive pulmon disease w acute lower resp infct I10 Essential (primary) hypertension Office Visit 04/12/2016 10:30a [facility] Christian F S46.011A Strain of Services Of [facility] Ann[place]arie musc/tend the C.M.A. rotator cuff of right shoulder, init M75.41 Impingement syndrome of right shoulder M19.011 Primary osteoarthritis, right shoulder Office Visit 02/21/2016 [facility] And Matilde J45.909 Unspecified asthma , 11:30a [facility] uncomplicated Lot Attendant G47.33 Obstructive sleep apnea (adult) (pediatric) Office Visit 01/04/2016 11:30a [facility]ology And Matilde G47.33 Obstructive sleep [facility] apnea (adult) Lot Attendant (pediatric) J45.909 Unspecified asthma, uncomplicated Office Visit 11/25/2015 1:00p [facility] Abhishek Ramirez I48.0 Paroxysmal atrial Of Tung Beck M.D. fibrillation J44.0 Chronic obstructive pulmon disease w acute lower resp infct R94.31 Abnormal electrocardiogram [ECG] [EKG] Office Visit 11/23/2015 11:30a Pul[facility]ology And Matilde R06.02 Shortness of [facility] breath Lot Attendant J45.909 Unspecified asthma, uncomplicated G47.9 Sleep disorder, unspecified E66.01 Morbid (severe) obesity due to excess calories Office Visit 11/03/2015 [facility] I48.91 Unspecified atrial 4:06p Assoc,aruna Rodriguez M.D. fibrillation Hospitalists I48.0 Paroxysmal atrial fibrillation J44.0 Chronic obstructive pulmon disease w acute lower resp infct E66.01 Morbid (severe) obesity due to excess calories Office [facility]02[facility]91 Unspecified Visit 7:58a Assoc,JOLLY Rascon atrial Hospitalists fibrillation J44.0 Chronic obstructive pulmon disease w acute lower resp infct I10 Essential (primary) hypertension Office Visit 09/01/2015 [facility] N[facility]ễn M76.32 Iliotibial band 4:00p Services Of Ashly Mattson syndrome, left leg C.M.A. Office Visit 06/08/2015 [facility] M17.0 Bilateral primary 10:40a Services Of JEANNA Wells osteoarthritis of C.M.A. knee M76.32 Iliotibial band syndrome, left leg M70.62 Trochanteric bursitis, left hip Office Visit 04/27/2015 [facility] M17.0 Bilateral primary 10:40a Services Of JEANNA Wells osteoarthritis of C.M.A. knee M76.32 Iliotibial band syndrome, left leg M70.62 Trochanteric bursitis, left hip Office Visit 03/31/2015 [facility] M17.0 Bilateral primary 11:20a Services Of JEANNA Wells osteoarthritis of C.M.A. knee M76.32 Iliotibial band syndrome, left leg Office Visit 01/04/2015 1:30p Orth[facility] Arcelia M70.62 Trochanteric Services Of JEANNA Wells bursitis, left hip C.M.A. M23.8x2 Other internal derangements of left knee M17.0 Bilateral primary osteoarthritis of knee Office Visit 11/30/2014 1:30p [facility] Nguyễn 717.89 Internal Services Of Ashly Mattson Derangement Old C.M.A. Knee Other 715.96 Osteoarthrosis Unspec Genlzd Or Localized Lower Leg Office Visit 07/14/2013 [facility] Ramirez 794.31 Electrocardiogram 1:15p Cardiology Of Ashly Beck (ECG) (EKG) Abnormal [facility] 786.05 Shortness Of Breath Office Visit 06/19/2013 2:00p [facility] Abhishek D. 786.05 Shortness Of Of [facility] Ashly Beck Breath 794.31 Electrocardiogram (ECG) (EKG) Abnormal 427.0 PSVT Paroxysmal Supraventricular Tachycardia Office Visit 01/30/2011 [facility] Nguyễn 715.96 Osteoarthrosis 8:45a Services Of Ashly Mattson Unspec Genlzd Or C.M.A. Localized Lower Leg Office Visit 12/13/2010 [facility] Nguyễn 715.96 Osteoarthrosis 1:15p Services Of Ashly Mattson Unspec Genlzd Or C.M.A. Localized Lower Leg 836.0 Dislocation Knee Tear Of Medial Cartilage Or Meniscus Philippe Plan of Treatment Future Appointment(s):03/11/2018 9:45 am - Matilde Green MD at [facility]01/27/2018 - Matilde Green MDJ45.40 Moderate persistent asthma, uncomplicatedFollow up:6 uztwbY90.33 Obstructive sleep apnea (adult) (pediatric)C34.90 Malignant neoplasm of unspecified part of unspecified bronchus or lungE66.09 Other obesity due to excess calories
--- NOTE | 2018-02-28 21:17 | ED ---
Adult Trauma - HPI Summary HPI Summary: Patient has 2 complaints today. First complaint today: Patient is a 72-year-old female with a history of atrial fibrillation, COPD and CA (sees Dr. Paula) presenting to the ED approximately 2 hours after a fall. She states while she was sitting on the toilet in the bathroom, she fell off the toilet and hit her back on the bathtub seat. She c/o low back pain. She is also on arrival now c/o abdominal pain, worse with movement. She denies hitting her head or LOC. at bedside states he did not witness the fall, but saw her "sitting" when he went in the bathroom to help her. She was alert and acting appropriately per , however was c/o back pain. Patient ambulates at baseline. She states she was not weak just prior to her fall. Instead, she states she was sitting on the toilet for so long, her legs "fell asleep" and she was unaware until she began to stand. Upon trying to stand, she was unable to stand fully, and fell to her back. Her second complaint today: She has also been endorsing recent cough with thick yellow sputum without worsening SOB or chest pain. She was seen in the ED 3 weeks ago for SOB and admitted to ICU for SOB and elevated trop. She endorses sweats and chills, but denies fever. She states she feels improved since her stay 3 weeks ago. She denies any worsening SOB past baseline and continues her at home inhalers. She has acute renal failure but denies worsening urinary sxs. 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 She is also currently taking xarelto for her atrial fibrillation. She denies any excess bleeding or bruising. - History of Current Complaint Chief Complaint: EDBackInjuryPain Stated Complaint: FALL/LOWER BACK PAIN Time Seen by Provider: 02/28/18 20:52 Hx Obtained From: Patient ?: No Mechanism of Injury: Blunt Trauma Ambulatory at the Scene: N/A Onset/Duration: Started Hours Ago Onset of Pain: Hours Onset Severity: Moderate Current Severity: Moderate Pain Intensity: 6 Pain Scale Used: 0-10 Numeric Location: Head, Back, Abdomen/Pelvis Character: Aching Aggravating Factor(s): Movement, Palpation Alleviating Factor(s): Rest Associated Signs & Symptoms: Positive: Cough, Abdominal Pain - Additional Pertinent History Primary Care Physician: [id number] Oxygen Devices Used Prior to Hospitalization: Nasal Cannula - at baseline Recent Stress Test: No Have you ever had this problem before: Yes - Allergy/Home Medications Allergies/Adverse Reactions: Allergies Allergy/AdvReac Type Severity Reaction Status Date / Time clindamycin Allergy Severe Rash Verified 01/23/18 10:05 codeine Allergy Severe severe Verified 01/23/18 10:05 tachycardia Egg Derived Allergy Severe Difficulty Verified 01/23/18 10:05 Swallowing levofloxacin Allergy Severe Rash Verified 01/23/18 10:05 Sulfa (Sulfonamide Allergy Severe Rash Verified 01/23/18 10:05 Antibiotics) PMH/Surg Hx/FS Hx/Imm Hx Previously Healthy: Yes Endocrine/Hematology History: Reports: Hx Anemia - acute this admin Denies: Hx Diabetes Cardiovascular History: Reports: Hx Congestive Heart Failure - w/ef 45%, Hx Hypercholesterolemia, Hx Hypertension, Other Cardiovascular Problems/Disorders - LOOP recorder on left side. AFIB Denies: Hx Pacemaker/ICD Respiratory History: Reports: Hx Asthma, Hx Chronic Obstructive Pulmonary Disease (COPD), Hx Sleep Apnea GI History: Comment Only: Other GI Disorders - Current admin. Liquid stool x 3 days History: Reports: Hx Kidney Stones Denies: Hx Renal Disease Musculoskeletal History: Reports: Hx Arthritis, Other Musculoskeletal History - corticosteroids shots in bilateral knees in the past Denies: Hx Osteoporosis Sensory History: Reports: Hx Cataracts, Hx Contacts or Glasses, Hx Vision Problem - has reading glasses Denies: Hx Deafness, Hx Hearing Aid Opthamlomology History: Reports: Hx Cataracts, Hx Contacts or Glasses, Hx Vision Problem - has reading glasses Psychiatric History: Denies: Hx Panic Disorder - Cancer History Cancer Type, Location and Year: 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 Hx Chemotherapy: No Hx Radiation Therapy: Yes - Surgical History Surgery Procedure, Year, and Place: PORT RT SIDE, [employer] LINQ LOOP RECORDER, CATARACT REPAIR, CARPAL TUNNEL BILATERALLY, URETERAL STENTS FOR STONES Hx Anesthesia Reactions: No - Immunization History Hx Pertussis Vaccination: No Immunizations Up to Date: Yes Infectious Disease History: No Infectious Disease History: Denies: Traveled Outside the [place] in Last 30 Days - Family History Family History: neg: Breast CA - Social History Occupation: Unemployed, Disabled Lives: With Family Alcohol Use: None Hx Substance Use: No Substance Use Type: Reports: None Hx Tobacco Use: Yes Smoking Status (MU): Former Smoker Type: Cigarettes Amount Used/How Often: smoked approx 40 years 1-1 1/2ppd Length of Time of Smoking/Using Tobacco: 40 years Have You Smoked in the Last Year: No Review of Systems - ROS Summary Review of Systems Summary: Constitutional: The patient denies fever, BAUTISTA,however is endorsing some intermittent sweats and chills over the past few days. HEENT: Head: The patient denies headaches or dizziness. Eyes: The patient denies diplopia, blurry vision, eye pain, eye discharge, photophobia. Cardiovascular: The patient denies chest pain, palpitations, syncope, night cramps, or orthostasis. Respiratory: The patient endorses cough, dyspnea, wheezing. yellow sputum production, denies hemoptysis Gastrointestinal: Endorses diffuse abdominal pain on palpation. Denies diarrhea or constipation Genitourinary: Patient denies dysuria, hematuria, or pyuria. Denies vaginal discharge, vaginal bleeding. Denies other urinary symptoms. Muscles: The patient endorses diffuse myalgias Joints: The patient denies arthralgia and/or arthritis. Neurologic: The patient denies headache, loss of consciousness Positive: Chills, Skin Diaphoresis. Negative: Fever, Fatigue Negative: Photophobia, Blurred Vision, Diplopia Negative: Sore Throat, Ear Ache Negative: Palpitations, Chest Pain Positive: Cough. Negative: Shortness Of Breath Positive: Abdominal Pain. Negative: Vomiting, Diarrhea, Nausea Genitourinary: Negative Positive: no symptoms reported, see HPI Positive: Arthralgia Negative: Rash Neurological: Negative Psychological: Normal All Other Systems Reviewed And Are Negative: Yes Physical Exam - Summary Physical Exam Summary: Appearance: White female, obese, appears comfortable, pleasant, alert, appears SOB with oxygen applied Skin: Soft dry skin, no lesions. Nailbeds pink with no cyanosis or clubbing. No petechia noted. Bruising to the bilateral arms - denies new bruising since fall. Eyes: ANITA, EOMI, Conjunctiva pink with no redness or exudates. Mouth: Dentition without lesions. Moist mucosa Neck: Full range of motion to the bilateral upper and lower extremities. Palpable thyroid. Trachea at midline. No lymphadenopathy. Pulm: Chest symmetrical expansion. No deformities on posterior chest wall. Decreased breath wounds bilaterally. CV: No JVD. No deformities on anterior chest wall. RRR. No a-fib noted. GI: Bowel sounds WNL in all 4 quadrants. Pain on deep palpation of all 4 quadrants. Negative bates's, negative obturator. Psoas not performed. No pain over Mcburney's point. Musculoskeletal: Flexion and extension of neck without limitations. ROM WNL in all extremities. No deformities noted. Pulses +2 bilaterally. Neuro: Motor strength is 5/5 in upper and lower extremities bilaterally. A&OX3 Psych: Logical, coherent Triage Information Reviewed: Yes Vital Signs On Initial Exam: Initial Vitals Temp Pulse Resp BP Pulse Ox 97.7 F 97 20 123/76 94 02/28/18 20:29 02/28/18 20:29 02/28/18 20:29 02/28/18 20:29 02/28/18 20:29 Vital Signs Reviewed: Yes Appearance: Positive: Well-Nourished, Ill-Appearing Skin: Positive: Warm, Skin Color Reflects Adequate Perfusion Head/Face: Positive: Normal Head/Face Inspection Eyes: Positive: EOMI, ANITA, Conjunctiva Clear Neck: Positive: No Lymphadenopathy Respiratory/Lung Sounds: Positive: Clear to Auscultation, Breath Sounds Present Cardiovascular: Positive: RRR, Pulses are Symmetrical in both Upper and Lower Extremities. Negative: Leg Edema Left, Leg Edema Right Abdomen Description: Positive: Other: - tenderness throughout on deep palpatoin Musculoskeletal: Positive: Pain @ - lower back and abdomen Neurological: Positive: Sensory/Motor Intact, Alert, Oriented to Person Place, Time, Speech Normal Psychiatric: Positive: Affect/Mood Appropriate AVPU Assessment: Alert Diagnostics - Vital Signs Vital Signs Temp Pulse Resp BP Pulse Ox 02/28/18 20:29 97.7 F 97 20 123/76 94 - Laboratory Result Diagrams: 03/01/18 06:00 03/01/18 06:00 Lab Statement: Any lab studies that have been ordered have been reviewed, and results considered in the medical decision making process. - CT No standard instances CT Interpretation Completed By: Radiologist - L1 compression fracture; RLL PNA Adult Trauma Course/Dx - Course Course Of Treatment: On physical examination, patient is evaluated for low back pain after a trauma as well as cough and sweats and chills. She is having diffuse abdominal pain, but states this is not new and she has been having this for several weeks likely secondary to her chemotherapy. She denies any worsening symptoms of abdominal pain on this date. She does have low back pain from T12 to L5, no step-off noted and no bruising identified. CT chest abdomen and pelvis obtained which shows a right lower lobe airspace opacity representing either pneumonia or hemorrhage. Small associated pleural effusion. Right lung nodules and mediastinal adenopathy described on reports a prior studies. No other acute posttraumatic findings. L1 compression fracture with mild narrowing of the spinal canal, not present on the recent comparison study. No other acute findings. Patient does have leukocytosis but this is likely a combination of her steroid prescription and her right lower lobe pneumonia. VS stable and patient now only c/o back pain with no abdominal pain. - Diagnoses Differential Diagnosis/HQI/PQRI: Positive: Fracture, Other - pneumonia, SCLC, trauma. Provider Diagnoses: Compression fracture of L1 vertebra, Right lower lobe pneumonia - Physician Notifications Discussed Care Of Patient With: Maritza Sauer Instructed by Provider To: Admit As Inpatient Discharge - Sign-Out/Discharge Documenting (check all that apply): Patient Departure - Discharge Plan Condition: Stable Disposition: [facility]ITT[facility] TO [facility] - Billing Disposition and Condition Condition: STABLE Disposition: Admitted to [facility]
[2018-02-28 22:19] LABS: Albumin 3.5 g/dL (3.2-5.2); Albumin/Globulin Ratio 1.4 (1-3); Calcium 9.8 mg/dL (8.6-10.3); EGFR Non-African American 47.5 (>60); Globulin 2.5 g/dL (2-4); Potassium 3.6 mmol/L (3.5-5.0); Total Bilirubin 0.8 mg/dL (0.2-1.0)
[2018-02-28 22:22] LABS: INR 2.92 (0.77-1.02)
[2018-02-28 22:26] LABS: ABS Basophils 0.2 10^3/ul (0-0.2); ABS Eosinophils 0 10^3/ul (0-0.6); ABS Lymphocytes 0.2 10^3/ul (1.0-4.8); ABS Monocytes 2.8 10^3/ul (0-0.8); ABS Neutrophils 19.6 10^3/ul (1.5-7.7); ABS Nucleated RBC 0 10^3/ul; Eosinophil % 0 %; Hematocrit 31 % (35-47); Hemoglobin 10.2 g/dl (12.0-16.0); Lymphocyte % 1.1 %; Mean Corpuscular HGB Conc 33 g/dl (31-36); Mean Corpuscular Hemoglobin 32 pg (27-31); Mean Corpuscular Volume 96 fL (80-97); Mean Platelet Volume 8.7 fL (7.4-10.4); Nucleated Red Blood Cells % 0.1; Platelet Count 146 10^3/ul (150-450); Red Blood Count 3.17 10^6/ul (4.00-5.40); Red Cell Distribution Width 25 % (10.5-15); White Blood Count 22.8 10^3/ul (3.5-10.8)
[2018-02-28] MEDS ORDERED: HYDROcodone/ACETAMIN 5-325 MG* 1 TAB PO ONE (23:30)
[2018-02-28] MEDS ORDERED: cefTRIAXone(*) 1 GM in NS 0.9% 50 ML* 50 ML IVPB ONE (23:32)
[2018-02-28] MEDS ORDERED: Azithromycin IV(*) 500 MG in NS 0.9% 250 ML* 250 ML IVPB ONE (23:35)
[2018-02-28] MEDS ORDERED: NS 0.9% 1000 ML* 1,000 ML IV ONE (23:36)
[2018-03-01] MEDS ORDERED: Morphine INJ* 2 MG/ML 1 ML SYRINGE (TWO MG - NEW SYRINGE VERSION) IV ONE (00:31)
[2018-03-01] MEDS ORDERED: Albuterol HFA INHALER* 8 gm MDI INH PRN (00:34)
[2018-03-01] MEDS ORDERED: Mometasone 220 MCG MDI INH PRN (00:34)
[2018-03-01] MEDS ORDERED: Montelukast Sodium TAB* 10 MG PO PRN (00:34)
[2018-03-01] MEDS ORDERED: Mometasone/Formoter 200/5 MDI INH PRN (00:34)
[2018-03-01] MEDS ORDERED: Acetaminophen TAB* 325 MG PO PRN (00:34)
[2018-03-01] MEDS ORDERED: Loperamide CAP* 2 MG PO PRN (00:34)
[2018-03-01] MEDS ORDERED: Morphine VIAL* 4 MG/ML VIAL (1 ml vial) ONE (00:36)
[2018-03-01] MEDS ORDERED: NS 0.9% 1000 ML* 1,000 ML IV SCH (00:45)
--- NOTE | 2018-03-01 02:28 | HP ---
CC: Dr. Pickett; Dr. Green; Dr. Martinez HISTORY AND PHYSICAL: DATE OF ADMISSION: 03/01/18 TIME OF EVALUATION: 12:21 a.m. PRIMARY CARE PROVIDER: Dr. Pickett. COTTON BUYER: Dr. Green. ONCOLOGIST: Dr. Martinez. CHIEF COMPLAINT: "My back hurts." HISTORY OF PRESENT ILLNESS: Mrs. Giraldo is a 72-year-old lady with a past medical history of small lorraine l lung cancer, on chemotherapy; asthma/COPD; atrial fibrillation, on anticoagulation; hyperlipidemia; hypertension; nephrolithiasis; morbid obesity; osteoarthritis; obstructive sleep apnea, who presents to the emergency room with complaints of back pain. The patient was admitted to [facility] [place] in December with neutropenic fever secondary to pneumonia. She went home and returned in end of January with diarrhea and sepsis of unclear source. The plan a t that time was for the patient to follow up with Oncology on 03/04/18 with plan for posttreatment re staging PET. The patient says that she was initially doing well at home; but for the past 4 to 5 days , she noted progressive shortness of breath with productive cough, weakness and malaise. She states that she was feeling so poorly that her plan was to call 911 to come to the hospital. She went to e bathroom, had a soft bowel movement and she states that she stayed on the toilet for too long and h er feet became numb. She moved them around and felt that the sensation was coming back, but when she tried to stand up from the toilet using her walker, she fell on her bottom and developed acute back p ain, reason why 911 was called. She denies fever, but her states that she did have some chills. There is no nausea, vomiting, diarrhea, chest pain, or palpitations. PAST MEDICAL HISTORY: 1. Limited stage small cell lung cancer, undergoing chemotherapy and plan for radiation. 2. Asthma/COPD. 3. Atrial fibrillation. 4. Hyperlipidemia. 5. Hypertension. 6. Nephrolithiasis. 7. Osteoarthritis. 8. Obstructive sleep apnea. 9. Morbid obesity, BMI is 45.5. PAST SURGICAL HISTORY: 1. Status post carpal tunnel repair. 2. Status post cataract surgery. 3. Status post hemorrhoidectomy. MEDICATIONS: 1. Acetaminophen 650 mg p.o. q.4 hours p.r.n. pain or fever. 2. Albuterol HFA 1 to 2 puffs inhaled q.4 hours p.r.n. shortness of breath. 3. Albuterol ipratropium nebulized q.4 hours p.r.n. shortness of breath. 4. Atorvastatin 40 mg p.o. daily. 5. Symbicort 160/4.5 one puff inhaled b.i.d. as needed for shortness of breath. 6. Cholecalciferol 1000 units p.o. in the morning. 7. Dexamethasone 8 mg p.o. daily. 8. Cardizem CD 360 mg p.o. daily. 9. EpiPen 0.3 mg IM p.r.n. anaphylaxis. 10. Furosemide 10 mg p.o. daily. 11. Lidocaine patch 5% topical daily. 12. Loperamide 2 mg p.o. p.r.n. after each diarrhea bowel movement, maximum 8 mg daily. 13. Magnesium oxide 400 mg p.o. b.i.d. 14. Asmanex 220 mcg 1 puff inhaled b.i.d. as needed for shortness of breath. 15. Montelukast 10 mg p.o. daily as needed for allergy symptoms. 16. Omeprazole 20 mg p.o. daily. 17. Oxycodone 5 mg p.o. q.6 hours p.r.n. pain. 18. Potassium chloride 20 mEq p.o. daily. 19. Prednisone 5 mg p.o. daily. 20. Xarelto 20 mg p.o. at bedtime. 21. Tamsulosin 0.4 mg p.o. at bedtime. 22. Spiriva 1 capsule inhaled daily. ALLERGIES: CLINDAMYCIN, CODEINE, EGG, LEVOFLOXACIN, and SULFA. FAMILY HISTORY: The patient's mother at age 57 with COPD. Father in his 30s of diabetes. SOCIAL HISTORY: The patient has a prior history of tobacco abuse, has quit. No alcohol or drug use. Surrogate decision maker is her , Derrick Giraldo, phone number is [phone]. REVIEW OF SYSTEMS: A 14-point review of systems was performed and all the pertinent negative and pos itive findings are in the HPI. PHYSICAL EXAMINATION GENERAL: The patient is an elderly morbid obese lady, lying in the ED stretcher on her left side, ap pears to be uncomfortable due to pain. VITAL SIGNS: Temperature 97.7, heart rate is 94, respiratory rate is 18, oxygen saturation is 96% on 2 L nasal cannula, and blood pressure is 123/75. CVS: S1, S2. Irregularly irregular. CHEST: Breath sounds bilaterally, coarse with crackles on the right base. ABDOMEN: Obese, soft. Bowel sounds are present. EXTREMITIES: No edema. NEUROLOGIC: She is alert, awake and oriented x3, able to move all 4 extremities. Sensation is intact in the lower extremities and power is 5/5. LABORATORY AND IMAGING DATA: The patient had a CBC that showed a WBC of 22.8, hemoglobin of 10.2, h ematocrit of 31, platelets of 146 with 85% neutrophils. INR is 2.9. Chemistry showed a sodium 134, potassium 3.6, chloride of 95, bicarb of 29, BUN of 26, creatinine of 1.1, glucose of 129, calcium of 9.8. LFTs showed a total bilirubin of 0.8, AST of 26, ALT of 74, alk phos of 128. CT of the chest, abdomen and pelvis shows right lower lobe airspace opacity representing either pneum onia or hemorrhage, small right-sided pleural effusion, right lung nodules and mediastinal adenopathy . No other acute posttraumatic findings. L1 compression fracture with mild narrowing of the spinal canal, not present on her recent compression study. ASSESSMENT AND PLAN: Ms. Giraldo is a 72-year-old lady with a past medical history of lung carcinoma, m orbid obesity with a BMI of 45, asthma, chronic obstructive pulmonary disease, atrial fibrillation, w ho presented to the emergency room after sustaining a fall, found to have L1 fracture but also with 3 to 4 days of shortness of breath and cough, found to have pneumonia. 1. Pneumonia. The patient does not meet sepsis criteria at this time, but she does have a leukocyto sis of 22,000 and she is immunosuppressed with malignancy and chemotherapy. She will be admitted to the medical floor. She is going to be treated with ceftriaxone and Zithromax and blood and sputum cu lture, Legionella and pneumococcal antigens will be sent. She will receive gentle IV hydration and w e are going to continue her usual bronchodilators and inhaled steroids. She does not appear to have a chronic obstructive pulmonary disease exacerbation at this time. 2. L1 compression fracture. The patient's neurological exam is normal. She will receive pain medic ation and will benefit of a neurosurgical consultation in the morning. For now due to her pain, she will be kept on bed rest. 3. Atrial fibrillation, rate is controlled. We will continue Cardizem and rivaroxaban. 4. Lung carcinoma. Management as per Oncology. 5. DVT prophylaxis. The patient has a score of 5 on the DVT Prophylaxis Risk Assessment Guide and s he was already anticoagulated with Xarelto. She will have SCDs while in bed. 6. Code status is full. TIME SPENT: Approximately 50 minutes were spent with the patient interview, medical records review, physical examination to complete this admission. More than half of this time was spent [id number] with the patient in coordination of care. [id number]/[facility] #: [id number]
[2018-03-01 06:36] LABS: ABS Basophils 0 10^3/ul (0-0.2); ABS Eosinophils 0 10^3/ul (0-0.6); ABS Lymphocytes 0.3 10^3/ul (1.0-4.8); ABS Neutrophils 18.1 10^3/ul (1.5-7.7); ABS Nucleated RBC 0 10^3/ul; Eosinophil % 0.1 %; Hematocrit 27 % (35-47); Lymphocyte % 1.4 %; Mean Corpuscular HGB Conc 33 g/dl (31-36); Mean Corpuscular Hemoglobin 32 pg (27-31); Mean Corpuscular Volume 97 fL (80-97); Mean Platelet Volume 9.3 fL (7.4-10.4); Nucleated Red Blood Cells % 0.1; Platelet Count 126 10^3/ul (150-450); Red Blood Count 2.79 10^6/ul (4.00-5.40); Red Cell Distribution Width 25 % (10.5-15); White Blood Count 20.5 10^3/ul (3.5-10.8)
[2018-03-01 06:50] LABS: BUN/Creatinine Ratio 24.7 (8-20); EGFR Non-African American 62.5 (>60); Potassium 3.4 mmol/L (3.5-5.0)
[2018-03-01] MEDS ORDERED: Tiotropium CAP.INH* CAP.INH/18 MCG (USE ORDER SET !) INH ONE (07:36)
[2018-03-01] MEDS: Morphine INJ* 2 MG/ML 1 ML SYRINGE (TWO MG - NEW SYRINGE VERSION) IV PRN ×6 (08:00→22:39)
[2018-03-01] MEDS: Atorvastatin* 40 MG TAB PO SCH (08:00)
[2018-03-01] MEDS: Diltiazem CD CAP* 180 MG PO SCH (08:01)
[2018-03-01] MEDS: guaiFENesin ER TAB 600 MG PO SCH ×2 (08:01→20:31)
[2018-03-01] MEDS: Omeprazole CAP* 20 MG PO SCH (08:01)
[2018-03-01] MEDS: Cholecalciferol TAB* 1000 UNITS PO SCH (08:01)
[2018-03-01] MEDS: Lidocaine PATCH 5%* 1 PATCH TRANSDERM SCH (08:01)
[2018-03-01] MEDS: Potassium Chlor TAB* 20 MEQ TAB.ER PO SCH (08:01)
[2018-03-01] MEDS: Magnesium Oxide TAB* 400 MG PO SCH ×2 (08:01→20:31)
[2018-03-01] MEDS: Mometasone/Formoter 200/5 MDI INH SCH ×2 (08:10→19:39)
[2018-03-01] MEDS ORDERED: Dexamethasone TAB* 4 MG PO SCH (09:00)
[2018-03-01] MEDS: Tiotropium CAP.INH* CAP.INH/18 MCG (USE ORDER SET !) INH SCH (11:52)
[2018-03-01] MEDS ORDERED: Spiriva Inhaler DEVICE* 1 EACH DEVICE INH ONE (12:30)
--- NOTE | 2018-03-01 12:36 | PN ---
Progress Note - Progress Note Date of Service: 03/01/18 SOAP: Subjective: []Has had chronic back pain. Over past several weeks also not feeling well. Has had cough with green mucous. Chronic SOB, no change. Was in bathroom this am and feet fell asleep sitting on toilet. Tried to sand and fell, hit back against tub, did not hit head. Chronic back pain worse and could not get up. Called ambulance and came to ER. On presentation CT scan of C/A/P showed infiltrated vs atelectasis in RLL, compression fracture in T8. Today feels the same, back still hurts. 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 ANTONIO at this time Obese Asthma/COPD Abdominal pain OA, back pain. afib Acetaminophen (Tylenol Tab*) 650 mg PO Q4H PRN PRN Reason: pain/fever Albuterol (Ventolin Hfa Inhaler*) 2 puff INH Q4H PRN PRN Reason: SOB/WHEEZING Albuterol/Ipratropium (Duoneb (Albuterol 2.5 Mg/Ipratropium 0.5 Mg)) 1 neb INH Q4H PRN PRN Reason: SOB/WHEEZING Atorvastatin Calcium (Lipitor*) [facility] [facility] Admin: 03/01/18 08:00 Dose: 40 mg Cholecalciferol (Vitamin D Tab*) 1,000 units PO QAM [facility] Last Admin: 03/01/18 08:01 Dose: 1,000 units Diltiazem HCl (Cardizem Cd Cap*) 360 mg PO QAM [facility] Last Admin: 03/01/18 08:01 Dose: 360 mg Guaifenesin (Mucinex*) 600 mg PO BID [facility] Last Admin: 03/01/18 08:01 Dose: 600 mg Azithromycin 500 mg/ Sodium (Chloride) 250 mls @ 250 mls/hr IVPB DAILY@2300 [facility] Sodium Chloride (Ns 0.9% 1000 Ml*) 1,000 mls @ 75 mls/hr IV PER RATE [facility] Stop: 03/01/18 14:04 Last Admin: 03/01/18 01:54 Dose: 75 mls/hr Ceftriaxone Sodium 1 gm/ (Sodium Chloride) 50 mls @ 200 mls/hr IVPB Q24H [facility] Lidocaine (Lidoderm 5% Patch*) 1 patch TRANSDERM DAILY [facility] Last Admin: 03/01/18 08:01 Dose: 1 patch Loperamide HCl (Imodium Cap*) 2 mg PO .SEE DIRECTIONS PRN PRN Reason: DIARRHEA Magnesium Oxide (Magox 400 Tab*) 400 mg PO BID [facility] Last Admin: 03/01/18 08:01 Dose: 400 mg Mometasone Furoate (Asmanex 220 Mcg Mdi *) 1 puff INH BID PRN; Protocol PRN Reason: SHORTNESS OF BREATH Mometasone Furoate/Formoterol Fumar (Dulera 200/5 Mdi*) 2 puff INH BID [facility]; Protocol Last Admin: 03/01/18 08:10 Dose: 2 puff Montelukast Sodium (Singulair Tab*) 10 mg PO DAILY PRN PRN Reason: Allergy Symptoms Morphine Sulfate (Morphine Inj ((Syringe))*) 1 mg IV Q1H PRN PRN Reason: SEVERE PAIN Last Admin: 03/01/18 11:22 Dose: 1 mg Omeprazole (Prilosec Cap*) 20 mg PO DAILY@0730 [facility] Last Admin: 03/01/18 08:01 Dose: 20 mg Oxycodone HCl (Roxycodone Tab*) 5 mg PO Q6H PRN PRN Reason: pain Pharmacy Profile Note (Lidocaine Patch Remove*) 1 note PATCH OFF 2100 [facility] Potassium Chloride (Klor Con Er Tab*) 20 meq PO DAILY [facility] Last Admin: 03/01/18 08:01 Dose: 20 meq Rivaroxaban (Xarelto(*)) 20 mg PO QPM [facility] Tamsulosin HCl (Flomax Cap*) 0.4 mg PO BEDTIME [facility] Tiotropium [place] (Spiriva Cap.Inh*) 1 cap INH 1230 [facility] Last Admin: 03/01/18 11:52 Dose: 1 cap Objective: [] Vital Signs Temp Pulse Resp BP Pulse Ox 97.9 F 77 18 136/44 92 03/01/18 11:25 03/01/18 11:25 03/01/18 11:25 03/01/18 11:25 03/01/18 11:25 HEENT: pale, no oral lesions decreased BS, no wheezing RRR today S12 obese, non tender no tenderness along spine, no CVA tenderness Mckeon in place could not sit up in bed, able to turn to side stregnth 5/5 arms and legs, AAOx3 CT scans, MRI and PET reviewed. The compression fracture in T8 appears progressed from January. Unsure if I believe infiltrate on CT. No clear evidence of recurrent cancer. Assessment: []72 year old with multiple medical problems admitted after fall and cannot get up. Plan: []1. Pnemonia/Bronchitis. Agree with antibiotics, WBC to far from chemotherpy to be recover of marrow, assume infection. Will also check UA. 2. Back pain. Compression fracture may be from fall, osteoporosis, unlikely cancer. She is on Morphine. Consultation PT. Not a good surgical candidate. Will check Vit D, Dex in future. 3. Urinary retention. May be from narcotics, check UA 4. COPD stable, continue home medications. 5. Anemia is chronic disease, normal Iron and B12 in December. 6. Cancer. Proceed with out patient PET after discharge, NATONIO at this time and no additional therapy planned. High risk of recurrence.
[2018-03-01 13:29] LABS: Urine Appearance Cloudy; Urine Bacteria Absent (Absent); Urine Bilirubin Negative (Negative); Urine Blood 2+ (Negative); Urine Color Yellow; Urine Glucose Negative (Negative); Urine Ketones Negative (Negative); Urine Nitrite Negative (Negative); Urine Protein Negative (Negative); Urine Red Blood Cell 3+(>10/hpf) (Absent); Urine Specific Gravity 1.014 (1.010-1.030); Urine Urobilinogen Negative (Negative); Urine White Blood Cell 3+(>20/hpf) (Absent)
[2018-03-01] MEDS: oxyCODONE TAB* 5 MG TAB PO PRN ×2 (14:30→20:31)
[2018-03-01] MEDS: Rivaroxaban TAB(*) 20 MG TAB PO SCH (16:54)
[2018-03-01] MEDS: Tamsulosin CAP* 0.4 MG PO SCH (20:31)
[2018-03-01] MEDS: Lidocaine Patch REMOVE* 1 NOTE MISC PATCH OFF SCH (20:36)
[2018-03-01] MEDS: cefTRIAXone* 1 GM in NS 0.9% 50 ML BAG IVPB SCH (22:44)
[2018-03-01] MEDS ORDERED: cefTRIAXone VIAL(*) 1,000 MG VIAL IVPB SCH (23:00)
[2018-03-01] MEDS: Azithromycin IV(*) 500 MG in NS 0.9% 250 ML* 250 ML IVPB SCH (23:44)
[2018-03-02] MEDS: Morphine INJ* 2 MG/ML 1 ML SYRINGE (TWO MG - NEW SYRINGE VERSION) IV PRN ×7 (04:13→19:23)
[2018-03-02] MEDS: oxyCODONE TAB* 5 MG TAB PO PRN ×3 (04:14→21:15)
[2018-03-02 06:39] LABS: ABS Basophils 0 10^3/ul (0-0.2); ABS Eosinophils 0 10^3/ul (0-0.6); ABS Lymphocytes 0.3 10^3/ul (1.0-4.8); ABS Monocytes 1.6 10^3/ul (0-0.8); ABS Neutrophils 19.2 10^3/ul (1.5-7.7); ABS Nucleated RBC 0 10^3/ul; Eosinophil % 0 %; Hematocrit 25 % (35-47); Hemoglobin 8.3 g/dl (12.0-16.0); Lymphocyte % 1.3 %; Mean Corpuscular HGB Conc 33 g/dl (31-36); Mean Corpuscular Hemoglobin 32 pg (27-31); Mean Corpuscular Volume 97 fL (80-97); Mean Platelet Volume 8.7 fL (7.4-10.4); Nucleated Red Blood Cells % 0.1; Platelet Count 121 10^3/ul (150-450); Red Blood Count 2.58 10^6/ul (4.00-5.40); Red Cell Distribution Width 26 % (10.5-15); White Blood Count 21.1 10^3/ul (3.5-10.8)
[2018-03-02 06:52] LABS: Albumin 2.9 g/dL (3.2-5.2); Albumin/Globulin Ratio 1.3 (1-3); BUN/Creatinine Ratio 20.2 (8-20); EGFR Non-African American 66.8 (>60); Globulin 2.3 g/dL (2-4); Potassium 3.2 mmol/L (3.5-5.0); Total Bilirubin 0.5 mg/dL (0.2-1.0); Total Protein 5.2 g/dL (6.4-8.9)
[2018-03-02] MEDS: Mometasone/Formoter 200/5 MDI INH SCH ×2 (07:27→19:40)
[2018-03-02] MEDS: Potassium Chlor TAB* 20 MEQ TAB.ER PO SCH (07:51)
[2018-03-02] MEDS: Atorvastatin* 40 MG TAB PO SCH (07:51)
[2018-03-02] MEDS: Diltiazem CD CAP* 180 MG PO SCH (07:51)
[2018-03-02] MEDS: Omeprazole CAP* 20 MG PO SCH (07:52)
[2018-03-02] MEDS: guaiFENesin ER TAB 600 MG PO SCH ×2 (07:52→21:08)
[2018-03-02] MEDS: Lidocaine PATCH 5%* 1 PATCH TRANSDERM SCH (07:52)
[2018-03-02] MEDS: Magnesium Oxide TAB* 400 MG PO SCH ×2 (07:52→21:08)
[2018-03-02] MEDS: Cholecalciferol TAB* 1000 UNITS PO SCH (07:52)
--- NOTE | 2018-03-02 08:52 | PN ---
Subjective Date of Service: 03/02/18 Interval History: No overnight events. States her breathing is ok because she isn't moving. Has not gotten out of bed yet. States she has been on bedrest. Dry cough persists , unable to bring anything up. No CP. Has been on oxygen chronically since January. Appetite adequate. Has indwelling arredondo. No BM for the past few days. Objective Active Medications: Acetaminophen (Tylenol Tab*) 650 mg PO Q4H PRN PRN Reason: pain/fever Albuterol (Ventolin Hfa Inhaler*) 2 puff INH Q4H PRN PRN Reason: SOB/WHEEZING Albuterol/Ipratropium (Duoneb (Albuterol 2.5 Mg/Ipratropium 0.5 Mg)) 1 neb INH Q4H PRN PRN Reason: SOB/WHEEZING Atorvastatin Calcium (Lipitor*) 40 mg PO QAM [facility] Last Admin: 03/02/18 07:51 Dose: 40 mg Cholecalciferol (Vitamin D Tab*) 1,[facility] [place] Last Admin: 03/02/18 07:52 Dose: 1,000 units Diltiazem HCl (Cardizem Cd Cap*) 360 mg [facility] [place] Last Admin: 03/02/18 07:51 Dose: 360 mg Guaifenesin (Mucinex*) 600 mg PO BID [facility] Last Admin: 03/02/18 07:52 Dose: 600 mg Heparin Sodium (Porcine) (Heparin Flush Port (Ivad)) 5 ml FLUSH DAILY [facility]; Protocol Last Admin: 03/02/18 07:52 Dose: 5 ml Azithromycin 500 mg/ Sodium (Chloride) 250 mls @ 250 mls/hr IVPB DAILY@2300 [facility] Last Admin: 03/01/18 23:44 Dose: 250 mls/hr Ceftriaxone Sodium 1 gm/ (Sodium Chloride) 50 mls @ 200 mls/hr IVPB Q24H [facility] Last Admin: 03/01/18 22:44 Dose: 200 mls/hr Lidocaine (Lidoderm 5% Patch*) 1 patch TRANSDERM DAILY [facility] Last Admin: 03/02/18 07:52 Dose: 1 patch Loperamide HCl (Imodium Cap*) 2 mg PO .SEE DIRECTIONS PRN PRN Reason: DIARRHEA Magnesium Oxide (Magox 400 Tab*) 400 mg PO BID [facility] Last Admin: 03/02/18 07:52 Dose: 400 mg Mometasone Furoate (Asmanex 220 Mcg Mdi *) 1 puff INH BID PRN; Protocol PRN Reason: SHORTNESS OF BREATH Mometasone Furoate/Formoterol Fumar (Dulera 200/5 Mdi*) 2 puff INH BID [facility]; Protocol Last Admin: 03/02/18 07:27 Dose: 2 puff Montelukast Sodium (Singulair Tab*) 10 mg PO DAILY PRN PRN Reason: Allergy Symptoms Morphine Sulfate (Morphine Inj ((Syringe))*) 1 mg IV Q1H PRN PRN Reason: SEVERE PAIN Last Admin: 03/02/18 07:51 Dose: 1 mg Omeprazole (Prilosec Cap*) 20 mg PO DAILY@0730 [facility] Last Admin: 03/02/18 07:52 Dose: 20 mg Oxycodone HCl (Roxycodone Tab*) 5 mg PO Q6H PRN PRN Reason: pain Last Admin: 03/02/18 04:14 Dose: 5 mg Pharmacy Profile Note (Lidocaine Patch Remove*) 1 note PATCH OFF 2100 [facility] Last Admin: 03/01/18 20:36 Dose: 1 note Potassium Chloride (Klor Con Er Tab*) 20 meq PO DAILY [facility] Last Admin: 03/02/18 07:51 Dose: 20 meq Rivaroxaban (Xarelto(*)) 20 mg PO QPM [facility] Last Admin: 03/01/18 16:54 Dose: 20 mg Tamsulosin HCl (Flomax Cap*) 0.4 mg PO BEDTIME [facility] Last Admin: 03/01/18 20:31 Dose: 0.4 mg Tiotropium [place] (Spiriva Cap.Inh*) 1 cap INH 1230 [facility] Last Admin: 03/01/18 11:52 Dose: 1 cap Vital Signs - 8 hr 03/02/18 03/02/18 03/02/18 02:41 04:13 04:14 Temperature 98.6 F Pulse Rate 101 Respiratory 20 22 22 Rate Blood Pressure 149/49 (mmHg) O2 Sat by Pulse 94 Oximetry 03/02/18 03/02/18 03/02/18 05:15 07:27 07:28 Temperature 98.1 F Pulse Rate 103 90 Respiratory 20 16 Rate Blood Pressure 136/65 (mmHg) O2 Sat by Pulse 93 92 Oximetry 03/02/18 03/02/18 03/02/18 07:51 07:53 08:00 Temperature Pulse Rate Respiratory 22 22 22 Rate Blood Pressure (mmHg) O2 Sat by Pulse Oximetry Oxygen Devices in Use Now: Nasal Cannula Appearance: Conversationally dyspneic Ears/Nose/Mouth/Throat: Mucous Membranes Moist Respiratory: - - diminished breath sounds, b/l faint rhonchi, prolonged expiratory phase Abdominal: NL Sounds; No Tenderness; No Distention Extremities: - - +1 edema Skin: No Rash or Ulcers Neurological: Alert and Oriented x 3, NL Muscle Strength and Tone Result Diagrams: 03/02/18 06:10 03/02/18 06:10 Microbiology and Other Data: Microbiology 03/01/18 03:00 Legionella Urinary Antigen - Final Urine Negative Legionella Antigen Streptococcus pneumoniae Ag Screen - Final Negative S. pneumo Antigen Assess/Plan/Problems-Billing Assessment: This is a 72 yr old with SSLC s/p chemo plans for radiation who presented to ED with back pain found to have L1 compression fracture and PNA - Patient Problems (1) Compression fracture of L1 lumbar vertebra Current Visit: Yes Status: Acute Code(s): S32.010A - WEDGE COMPRESSION FRACTURE OF FIRST LUMBAR VERTEBRA, INIT SNOMED Code(s): 290849979 Comment: A/P Status post fall prior to admission. ON bedrest. Per oncology, not a good surgical candidate with her SSLC and COPD with poor performance status. Spoke with neurosurgery regarding mobility and conservative management Plan Consult neurosurgery as above - once they evaluate then PT can assess for home safety discharge planning Continue pain management - Consider PMRU consult for pain management Start bowel regimen (2) Pneumonia Current Visit: Yes Status: Acute Code(s): J18.9 - PNEUMONIA, UNSPECIFIED ORGANISM SNOMED Code(s): 461653186 Comment: A/P With COPD and SSLC Dry cough, dyspneic in bed On IV ABx Plan Continue Abx COPD management Consider PE evaluation if no clinical improvement (anticoagulated) (3) SCLC (small cell lung carcinoma) Current Visit: Yes Status: Acute Code(s): C34.90 - MALIGNANT NEOPLASM OF UNSP PART OF UNSP BRONCHUS OR LUNG SNOMED Code(s): 179260485 Comment: A/P - Per ONcology (4) COPD (chronic obstructive pulmonary disease) Current Visit: Yes Status: Acute Code(s): J44.9 - CHRONIC OBSTRUCTIVE PULMONARY DISEASE, UNSPECIFIED SNOMED Code(s): 71873140 Comment: A/P - Has conversatinally dyspneic. Unclear how far this is from her baseline. Does not appear in active exacerbation based on exam. Plan Continue inhaler regimen. Hold off on steroids (5) Urinary retention Current Visit: Yes Status: Acute Code(s): R33.9 - RETENTION OF URINE, UNSPECIFIED SNOMED Code(s): 228623008 Comment: A/P indwelling arredondo in place (6) Atrial fibrillation Current Visit: Yes Status: Acute Code(s): I48.91 - UNSPECIFIED ATRIAL FIBRILLATION SNOMED Code(s): 75600905 Comment: A/P Rate controlled Continue diltiazem and Xarelto (7) Constipation Current Visit: Yes Status: Acute Code(s): K59.00 - CONSTIPATION, UNSPECIFIED SNOMED Code(s): 76173962 Comment: A/P - No BM since 03/09 Will start regimen (8) Anemia Current Visit: Yes Status: Acute Code(s): D64.9 - ANEMIA, UNSPECIFIED SNOMED Code(s): 479616631 Comment: A/P Slow decline but still within her baseline. Repeat in AM (9) DVT prophylaxis Current Visit: Yes Status: Acute Code(s): NRG3174 - SNOMED Code(s): 590982078 Comment: On xarelto (10) Full code status Current Visit: Yes Status: Acute Code(s): Z78.9 - OTHER SPECIFIED HEALTH STATUS SNOMED Code(s): 132552689 Comment: Recommend readdress with patient and family
[2018-03-02] MEDS ORDERED: Senna TAB PO PRN (08:58)
[2018-03-02] MEDS: Polyethylene Glycol 3350* 17 GM PACKET PO PRN (09:51)
[2018-03-02] MEDS: Docusate CAP* 100 MG PO PRN (09:51)
[2018-03-02] MEDS: Tiotropium CAP.INH* CAP.INH/18 MCG (USE ORDER SET !) INH SCH (12:50)
[2018-03-02] MEDS: Rivaroxaban TAB(*) 20 MG TAB PO SCH (17:46)
[2018-03-02] MEDS: Tamsulosin CAP* 0.4 MG PO SCH (21:08)
[2018-03-02] MEDS: Lidocaine Patch REMOVE* 1 NOTE MISC PATCH OFF SCH (21:10)
[2018-03-02] MEDS: Azithromycin IV(*) 500 MG in NS 0.9% 250 ML* 250 ML IVPB SCH (22:49)
[2018-03-02] MEDS: cefTRIAXone* 1 GM in NS 0.9% 50 ML BAG IVPB SCH (22:55)
--- NOTE | 2018-03-02 23:55 | CONS ---
CONSULTATION NOTE: DATE OF CONSULT: 03/02/18 HISTORY OF PRESENT ILLNESS: The patient is a very pleasant 72-year-old female with a past medical history of small cell lung cancer, status post chemotherapy ; asthma; COPD, on home oxygen; atrial fibrillation, on Xarelto; hyperlipidemia ; hypertension; nephrolithiasis; morbid obesity; osteoarthritis; obstructive sleep apnea, who presented to the emergency room with complaints of back pain after a recent fall. The patient has a history of a T8 compression fracture diagnosed recently. She now reports that she fell in the toilet, no loss of consciousness. She reported that after that she had difficulty with back pain. She reports that she had difficulty ambulating in the past. She was using the walker but she was not able to ambulate after the fall. She denies any weakness , numbness or tingling of extremities with the exception of occasional numbness in both feet that improves with repositioning of her legs. She denies any urinary or GI incontinence. She is . 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 PAST MEDICAL HISTORY: Small cell lung CA, on chemotherapy and scheduled for radiation; asthma; COPD; atrial fibrillation; hyperlipidemia; hypertension; nephrolithiasis; osteoarthritis; obstructive sleep apnea; morbid obesity with a BMI of 45.5. PAST SURGICAL HISTORY: Carpal tunnel release, cataract surgery, hemorrhoidectomy. MEDICATIONS: The patient was on: 1. Acetaminophen. 2. Albuterol. 3. Atorvastatin. 4. Symbicort. 5. Cholecalciferol. 6. Dexamethasone. 7. Cardizem. 8. EpiPen. 9. Furosemide. 10. Lidocaine. 11. Loperamide. 12. Magnesium. 13. Asmanex. 14. Montelukast. 15. Omeprazole. 16. Oxycodone. 17. Potassium. 18. Prednisone. 19. Xarelto. 20. Tamsulosin. 21. Spiriva. ALLERGIES: CLINDAMYCIN, CODEINE, EGG, LEVOFLOXACIN, and SULFA. FAMILY HISTORY: COPD, diabetes. SOCIAL HISTORY: Tobacco, negative, history of prior tobacco use. Alcohol, negative. Recreational use, negative. PHYSICAL EXAMINATION: On physical examination, the patient is in no acute distress. She is lying on the bed. She has nasal cannula for oxygen. She is awake, alert, and oriented x3. Her pupils are equal and reactive. Cranial nerves II through XII are grossly intact with decreased hearing on the right side. Motor 4 to 5/5 in all extremities. Patient has limited range of motion in the hip flexion, possibly antalgic, but has good strength in resistance. Sensory grossly intact to light touch. Deep tendon reflexes +1 bilaterally. No clonus. No Babinski. Doyle's negative. Patient has full range of motion of the cervical spine. No pain to palpation in the cervical, thoracic, and lumbar spine. DIAGNOSTIC STUDIES/LAB DATA: The patient had a CT of her chest, abdomen and pelvis revealing the prior T8 mild compression fracture, which was diagnosed on MRI of the thoracic spine on 01/30/18. The patient also had an L1 compression fracture without significant height loss. There is no canal compromise, although there is some suspicion of mild depression of the posterior wall of the vertebral body. No obvious injury in the posterior ligamentous complex. There is no splaying of the spinous processes or posterior fractures. There is also significant osteopenia. ASSESSMENT: The patient is a very pleasant 72-year-old female with past medical history of lung cancer; morbid obesity with a body mass index of 45; asthma; chronic obstructive pulmonary disease, on home oxygen; atrial fibrillation, on Xarelto with a previous T8 compression fracture with acute L1 compression fracture after reported fall. PLAN: The patient also was found to have pneumonia and this is treated by the oncology service. The patient was assessed by Dr. Paula. She is a poor surgical candidate given her comorbidities and her clinical condition. Furthermore, her TLICS score is 1 that indicates a most likely stable injury. At this point would advocate for conservative treatment with a thoracolumbosacral arthrosis. Recommend an upright x-ray as a baseline on the brace and conservative treatment. Furthermore, patient would benefit from evaluation and treatment of possible osteoporosis as well as surveillance of metastatic disease in the spine with MRI of her axis with and without contrast if is in agreement with Oncology. Full instructions given to the patient, the patient should exercise full fall precautions. Thank you for allowing us to participate in the care of this patient. Please do not hesitate to contact our office in case you have any further questions or concerns regarding the care of this patient. [id number]/[facility] #: [id number] CR
[2018-03-03] MEDS: Morphine INJ* 2 MG/ML 1 ML SYRINGE (TWO MG - NEW SYRINGE VERSION) IV PRN ×7 (02:24→20:25)
[2018-03-03] MEDS: oxyCODONE TAB* 5 MG TAB PO PRN ×2 (03:51→10:15)
[2018-03-03 04:51] LABS: ABS Basophils 0 10^3/ul (0-0.2); ABS Eosinophils 0 10^3/ul (0-0.6); ABS Lymphocytes 0.3 10^3/ul (1.0-4.8); ABS Monocytes 1.3 10^3/ul (0-0.8); ABS Neutrophils 16.1 10^3/ul (1.5-7.7); ABS Nucleated RBC 0 10^3/ul; Eosinophil % 0.2 %; Hematocrit 23 % (35-47); Hemoglobin 7.5 g/dl (12.0-16.0); Lymphocyte % 1.7 %; Mean Corpuscular HGB Conc 33 g/dl (31-36); Mean Corpuscular Hemoglobin 32 pg (27-31); Mean Corpuscular Volume 97 fL (80-97); Mean Platelet Volume 8.8 fL (7.4-10.4); Nucleated Red Blood Cells % 0.1; Platelet Count 111 10^3/ul (150-450); Red Blood Count 2.36 10^6/ul (4.00-5.40); Red Cell Distribution Width 25 % (10.5-15); White Blood Count 17.7 10^3/ul (3.5-10.8)
[2018-03-03] MEDS: Mometasone/Formoter 200/5 MDI INH SCH ×2 (07:21→20:14)
[2018-03-03] MEDS: Omeprazole CAP* 20 MG PO SCH (08:24)
[2018-03-03] MEDS: Cholecalciferol TAB* 1000 UNITS PO SCH (08:26)
[2018-03-03] MEDS: guaiFENesin ER TAB 600 MG PO SCH ×2 (08:26→20:27)
[2018-03-03] MEDS: Magnesium Oxide TAB* 400 MG PO SCH ×2 (08:26→20:27)
[2018-03-03] MEDS: Atorvastatin* 40 MG TAB PO SCH (08:27)
[2018-03-03] MEDS: Diltiazem CD CAP* 180 MG PO SCH (08:27)
[2018-03-03] MEDS: Potassium Chlor TAB* 20 MEQ TAB.ER PO SCH (08:29)
--- NOTE | 2018-03-03 10:25 | PN ---
Progress Note - Progress Note Date of Service: 03/03/18 SOAP: Subjective: []Feels terrible. Has a lot of pain though pain meds are helping. At home was using OTC lidocaine patches as insurance wouldn't cover and this helped some as well. Breathing is OK, but has no energy. Medications: Acetaminophen (Tylenol Tab*) 650 mg PO Q4H PRN PRN Reason: pain/fever Albuterol (Ventolin Hfa Inhaler*) 2 puff INH Q4H PRN PRN Reason: SOB/WHEEZING Albuterol/Ipratropium (Duoneb (Albuterol 2.5 Mg/Ipratropium 0.5 Mg)) 1 neb INH Q4H PRN PRN Reason: SOB/WHEEZING Atorvastatin Calcium (Lipitor*) 40 mg PO QAM [facility] Last Admin: 03/03/18 08:27 Dose: 40 mg Cholecalciferol (Vitamin D Tab*) 1,000 units PO QAM [facility] Last Admin: 03/03/18 08:26 Dose: 1,000 units Diltiazem HCl (Cardizem Cd Cap*) 360 mg PO QAM [facility] Last Admin: 03/03/18 08:27 Dose: 360 mg Docusate Sodium (Colace Cap*) 100 mg PO BID PRN PRN Reason: CONSTIPATION Last Admin: 03/02/18 09:51 Dose: 100 mg Fentanyl (Duragesic Patch 12 Mcg/Hr *) 12 mcg TRANSDERM Q72H [facility] Guaifenesin (Mucinex*) 600 mg PO BID [facility] Last Admin: 03/03/18 08:26 Dose: 600 mg Heparin Sodium (Porcine) (Heparin Flush Port (Ivad)) 5 ml FLUSH DAILY [facility]; Protocol Last Admin: 03/03/18 08:21 Dose: 5 ml Azithromycin 500 mg/ Sodium (Chloride) 250 mls @ 250 mls/hr IVPB DAILY@2300 [facility] Last Admin: 03/02/18 22:49 Dose: 250 mls/hr Ceftriaxone Sodium 1 gm/ (Sodium Chloride) 50 mls @ 200 mls/hr IVPB Q24H [facility] Last Admin: 03/02/18 22:55 Dose: 200 mls/hr Lidocaine (Lidoderm 5% Patch*) 1 patch TRANSDERM DAILY [facility] Last Admin: 03/02/18 07:52 Dose: 1 patch Loperamide HCl (Imodium Cap*) 2 mg PO .SEE DIRECTIONS PRN PRN Reason: DIARRHEA Magnesium Oxide (Magox 400 Tab*) 400 mg PO BID [facility] Last Admin: 03/03/18 08:26 Dose: 400 mg Mometasone Furoate (Asmanex 220 Mcg Mdi *) 1 puff INH BID [facility]; Protocol PRN Reason: SHORTNESS OF BREATH Mometasone Furoate/Formoterol Fumar (Dulera 200/5 Mdi*) 2 puff INH BID [facility]; Protocol Last Admin: 03/03/18 07:21 Dose: 2 puff Montelukast Sodium (Singulair Tab*) 10 mg PO DAILY PRN PRN Reason: Allergy Symptoms Morphine Sulfate (Morphine Inj ((Syringe))*) 1 mg IV Q1H PRN PRN Reason: SEVERE PAIN Last Admin: 03/03/18 08:21 Dose: 1 mg Omeprazole (Prilosec Cap*) 20 mg PO DAILY@0730 [facility] Last Admin: 03/03/18 08:24 Dose: 20 mg Oxycodone HCl (Roxycodone Tab*) 5 mg PO Q6H PRN PRN Reason: pain Last Admin: 03/03/18 03:51 Dose: 5 mg Pharmacy Profile Note (Lidocaine Patch Remove*) 1 note PATCH OFF 2100 [facility] Last Admin: 03/02/18 21:10 Dose: 1 note Pharmacy Profile Note (Fentanyl Patch Check Q Shift) 1 note N/A 0700,1900 [facility] Polyethylene Glycol/Electrolytes (Miralax*) 17 gm PO DAILY PRN PRN Reason: CONSTIPATION Last Admin: 03/02/18 09:51 Dose: 17 gm Potassium Chloride (Klor Con Er Tab*) 20 meq PO DAILY [facility] Last Admin: 03/03/18 08:29 Dose: 20 meq Rivaroxaban (Xarelto(*)) 20 mg PO QPM [facility] Last Admin: 03/02/18 17:46 Dose: 20 mg Senna (Senokot Tab*) 1 tab PO BEDTIME PRN PRN Reason: CONSTIPATION Tamsulosin HCl (Flomax Cap*) 0.4 mg PO BEDTIME [facility] Last Admin: 03/02/18 21:08 Dose: 0.4 mg Tiotropium [place] (Spiriva Cap.Inh*) 1 cap INH 1230 [facility] Last Admin: 03/02/18 12:50 Dose: 1 cap Objective: [] Vital Signs Temp Pulse Resp BP Pulse Ox 98.9 F 98 22 159/60 93 03/03/18 02:17 03/03/18 02:17 03/03/18 08:21 03/03/18 02:17 03/03/18 02:17 A&Ox3, EOMI, KIM, neuro grossly non-focal Strength = bilat. HRR, S1S3 LS rhonchi bilat. +BS, abd. soft and non-tender Laboratory Results - last 24 hr 03/03/18 04:00 WBC 17.7 H RBC 2.36 L Hgb 7.5 L Hct 23 L MCV 97 MCH 32 H MCHC 33 RDW 25 H Plt Count 111 L MPV 8.8 Neut % (Auto) 90.9 Lymph % (Auto) 1.7 [place] % (Auto) 7.1 Eos % (Auto) 0.2 Baso % (Auto) 0.1 Absolute Neuts (auto) 16.1 H Absolute Lymphs (auto) 0.3 L Absolute Monos (auto) 1.3 H Absolute Eos (auto) 0 Absolute Basos (auto) 0 Absolute Nucleated RBC 0 Nucleated RBC % 0.1 Microbiology 03/01/18 13:08 Urine Culture - Preliminary Urine Enterococcus Faecium 03/02/18 18:45 Gram Stain - Final Sputum Expectorated 03/02/18 06:10 Aerobic Blood Culture - Preliminary Blood Venous No Growth Day 1 Anaerobic Blood Culture - Preliminary No Growth Day 1 03/01/18 03:00 Legionella Urinary Antigen - Final Urine Negative Legionella Antigen Streptococcus pneumoniae Ag Screen - Final Negative S. pneumo Antigen Assessment: []72 yo female with history of SCLC s/p definitive therapy (C5D1 Carbo/ Etoposide 01/29) admitted with RLL pneumonia and new L1 compression fracture. Plan: []1. PNA: sputum pending, cont. abx. 2. Compression fracture: appreciate neurosurgical consult, will order TLSO brace - stable fracture, will need PT and likely rehab, PMRU consult once brace in place - start Fentanyl 12mcg transdermally q72hrs, reviewed use and precautions 3. Cystitis: urine +enteroccocus, abx. coverage appropriate 4. Hypokalemia: on PO replacement, labs today pending 5. Anemia: likely partially dilutional, though with resp. status I think she will benefit from a unit, reviewed risks and benefits 6. Constipation: add laxative for PRN use, cont. stool softener with use of narcotics 7. SCLC: CT from admission restaging appears stable, will review with primary oncologist as well, f/u as outpatient
[2018-03-03] MEDS ORDERED: fentaNYL PATCH 12 MCG/HR TRANSDERM SCH (11:00)
[2018-03-03] MEDS: Tiotropium CAP.INH* CAP.INH/18 MCG (USE ORDER SET !) INH SCH (11:22)
[2018-03-03 12:09] LABS: Albumin 2.8 g/dL (3.2-5.2); Albumin/Globulin Ratio 1.1 (1-3); BUN/Creatinine Ratio 19.2 (8-20); EGFR Non-African American 72.8 (>60); Globulin 2.6 g/dL (2-4); Magnesium 1.5 mg/dL (1.9-2.7); Potassium 3.7 mmol/L (3.5-5.0); Total Bilirubin 0.6 mg/dL (0.2-1.0); Total Protein 5.4 g/dL (6.4-8.9)
[2018-03-03] MEDS: Lidocaine PATCH 5%* 1 PATCH TRANSDERM SCH (15:56)
[2018-03-03] MEDS: Rivaroxaban TAB(*) 20 MG TAB PO SCH (17:21)
[2018-03-03] MEDS ORDERED: Furosemide IV* 10 MG/ML 2 ML VIAL (20 MG) ONE (17:35)
[2018-03-03] MEDS: Albuterol/Ipratropium NEB.SOL* Albuterol 2.5 MG/Ipratropium 0.5 MG 3 ML INH PRN (17:39)
[2018-03-03] MEDS ORDERED: Furosemide IV* 10 MG/ML 2 ML VIAL (20 MG) IV SLOW PU ONE (18:30)
[2018-03-03] MEDS: Tamsulosin CAP* 0.4 MG PO SCH (20:27)
[2018-03-03] MEDS: fentaNYL Patch Check Q Shift 1 NOTE SCH (20:34)
[2018-03-03] MEDS: Lidocaine Patch REMOVE* 1 NOTE MISC PATCH OFF SCH (22:11)
[2018-03-03] MEDS: cefTRIAXone* 1 GM in NS 0.9% 50 ML BAG IVPB SCH (23:18)
[2018-03-03] MEDS: Azithromycin IV(*) 500 MG in NS 0.9% 250 ML* 250 ML IVPB SCH (23:45)
--- NOTE | 2018-03-04 00:04 | PN ---
Progress Note - Progress Note Date of Service: 03/03/18 SOAP: Subjective: []Patient seen earlier today. No events ON. Objective: []VSS AAOx3 ANITA, CN II-XII grossly intact Motor 4-5/5 all extremities Sensory grossly intact to light touch Assessment: [] 72 yof Lung Ca, Fall with acute L1 compression fracture, chronic T 8 fracture Plan: []Monitor VS, Neurochecks TLso brace Upright XR with brace if tolerated. Felipe Lopez MD
[2018-03-04] MEDS: Morphine INJ* 2 MG/ML 1 ML SYRINGE (TWO MG - NEW SYRINGE VERSION) IV PRN ×12 (00:57→23:46)
[2018-03-04] MEDS: fentaNYL Patch Check Q Shift 1 NOTE SCH ×2 (06:53→19:17)
[2018-03-04] MEDS ORDERED: Tiotropium CAP.INH* CAP.INH/18 MCG (USE ORDER SET !) INH ONE (08:09)
[2018-03-04] MEDS: Mometasone/Formoter 200/5 MDI INH SCH ×2 (08:14→19:24)
[2018-03-04] MEDS: Tiotropium CAP.INH* CAP.INH/18 MCG (USE ORDER SET !) INH SCH ×2 (08:15→11:12)
[2018-03-04] MEDS: Diltiazem CD CAP* 180 MG PO SCH (08:25)
[2018-03-04] MEDS: Omeprazole CAP* 20 MG PO SCH (08:26)
[2018-03-04] MEDS: Atorvastatin* 40 MG TAB PO SCH (08:26)
[2018-03-04] MEDS: Cholecalciferol TAB* 1000 UNITS PO SCH (08:27)
[2018-03-04] MEDS: guaiFENesin ER TAB 600 MG PO SCH ×2 (08:27→20:45)
[2018-03-04] MEDS: Potassium Chlor TAB* 20 MEQ TAB.ER PO SCH (08:28)
[2018-03-04] MEDS: Magnesium Oxide TAB* 400 MG PO SCH ×2 (08:28→20:45)
[2018-03-04] MEDS: Lidocaine PATCH 5%* 1 PATCH TRANSDERM SCH (08:29)
[2018-03-04] MEDS: oxyCODONE TAB* 5 MG TAB PO PRN ×3 (08:50→22:06)
[2018-03-04 13:09] LABS: ABS Basophils 0 10^3/ul (0-0.2); ABS Eosinophils 0.1 10^3/ul (0-0.6); ABS Lymphocytes 0.3 10^3/ul (1.0-4.8); ABS Monocytes 1.5 10^3/ul (0-0.8); ABS Neutrophils 12.4 10^3/ul (1.5-7.7); ABS Nucleated RBC 0 10^3/ul; Eosinophil % 0.4 %; Hematocrit 24 % (35-47); Lymphocyte % 2.4 %; Mean Corpuscular HGB Conc 34 g/dl (31-36); Mean Corpuscular Hemoglobin 32 pg (27-31); Mean Corpuscular Volume 95 fL (80-97); Mean Platelet Volume 8.3 fL (7.4-10.4); Nucleated Red Blood Cells % 0.3; Platelet Count 104 10^3/ul (150-450); Red Blood Count 2.49 10^6/ul (4.00-5.40); Red Cell Distribution Width 24 % (10.5-15); White Blood Count 14.3 10^3/ul (3.5-10.8)
[2018-03-04 13:15] LABS: BUN/Creatinine Ratio 21.3 (8-20); Calcium 8.3 mg/dL (8.6-10.3); EGFR Non-African American 96.7 (>60); Potassium 3.4 mmol/L (3.5-5.0)
[2018-03-04] MEDS: Cefepime 2 GM in Dextrose(*) 2 GM/50 ML BAG IV SCH (16:16)
[2018-03-04] MEDS: Rivaroxaban TAB(*) 20 MG TAB PO SCH (17:32)
[2018-03-04] MEDS: Tamsulosin CAP* 0.4 MG PO SCH (20:45)
[2018-03-04] MEDS: Lidocaine Patch REMOVE* 1 NOTE MISC PATCH OFF SCH (20:46)
[2018-03-04] MEDS: Docusate CAP* 100 MG PO PRN (20:50)
[2018-03-04] MEDS: Azithromycin IV(*) 500 MG in NS 0.9% 250 ML* 250 ML IVPB SCH (23:46)
[2018-03-05] MEDS: Morphine INJ* 2 MG/ML 1 ML SYRINGE (TWO MG - NEW SYRINGE VERSION) IV PRN ×8 (02:31→21:40)
[2018-03-05] MEDS: Cefepime 2 GM in Dextrose(*) 2 GM/50 ML BAG IV SCH ×2 (02:33→15:15)
[2018-03-05] MEDS: oxyCODONE TAB* 5 MG TAB PO PRN ×3 (04:38→17:19)
[2018-03-05 05:07] LABS: ABS Basophils 0 10^3/ul (0-0.2); ABS Eosinophils 0 10^3/ul (0-0.6); ABS Lymphocytes 0.3 10^3/ul (1.0-4.8); ABS Monocytes 1.5 10^3/ul (0-0.8); ABS Neutrophils 12.7 10^3/ul (1.5-7.7); ABS Nucleated RBC 0 10^3/ul; Eosinophil % 0.2 %; Hematocrit 22 % (35-47); Hemoglobin 7.6 g/dl (12.0-16.0); Lymphocyte % 2.3 %; Mean Corpuscular HGB Conc 34 g/dl (31-36); Mean Corpuscular Hemoglobin 32 pg (27-31); Mean Corpuscular Volume 95 fL (80-97); Mean Platelet Volume 7.8 fL (7.4-10.4); Nucleated Red Blood Cells % 0.2; Platelet Count 97 10^3/ul (150-450); Red Blood Count 2.35 10^6/ul (4.00-5.40); Red Cell Distribution Width 24 % (10.5-15); White Blood Count 14.6 10^3/ul (3.5-10.8)
[2018-03-05] MEDS: fentaNYL Patch Check Q Shift 1 NOTE SCH ×2 (06:34→19:24)
[2018-03-05] MEDS: Tiotropium CAP.INH* CAP.INH/18 MCG (USE ORDER SET !) INH SCH ×2 (07:24→12:42)
[2018-03-05] MEDS: Mometasone/Formoter 200/5 MDI INH SCH ×2 (07:24→20:05)
[2018-03-05] MEDS: Lidocaine PATCH 5%* 1 PATCH TRANSDERM SCH (07:37)
[2018-03-05] MEDS: Potassium Chlor TAB* 20 MEQ TAB.ER PO SCH (07:37)
[2018-03-05] MEDS: Atorvastatin* 40 MG TAB PO SCH (07:37)
[2018-03-05] MEDS: Omeprazole CAP* 20 MG PO SCH (07:37)
[2018-03-05] MEDS: Magnesium Oxide TAB* 400 MG PO SCH ×2 (07:38→21:42)
[2018-03-05] MEDS: Diltiazem CD CAP* 180 MG PO SCH (07:38)
[2018-03-05] MEDS: guaiFENesin ER TAB 600 MG PO SCH ×2 (07:38→21:42)
[2018-03-05] MEDS: Cholecalciferol TAB* 1000 UNITS PO SCH (07:38)
[2018-03-05] MEDS: Polyethylene Glycol 3350* 17 GM PACKET PO PRN (07:48)
[2018-03-05] MEDS: Docusate CAP* 100 MG PO PRN ×2 (07:48→21:42)
--- NOTE | 2018-03-05 10:50 | CONS ---
CONSULTATION REPORT: DATE OF CONSULT: 03/05/18 REQUESTING PROVIDER: Ronna Hernandez NP. CONSULTING SERVICE: Infectious Disease. REASON FOR CONSULTATION: Pneumonia. IMPRESSION: 1. Left lower lobe infiltrate with cough, sputum production, which has grown Pseudomonas, could be colonization but in the setting of an infiltrate, likely it is a pathogen. 2. Lumbar spine compression fracture. 3. Chronic obstructive pulmonary disease, on supplemental oxygen. 4. Small cell lung cancer, chemotherapy. RECOMMENDATION: Change ceftriaxone to cefepime. We can continue azithromycin, which I will change to p.o. to finish 5 days. HISTORY OF PRESENT ILLNESS: This is a 72-year-old woman with COPD, lung cancer , recent chemotherapy, admitted with back pain after falling at home. She had been going weak over a couple of days before coming in, she thinks. Occasional chills, sweats. No fever. Her appetite had been okay. Had not had any diarrhea. In the hospital, she had a CT chest, abdomen, and pelvis showed left lower lobe infiltrate. She was found to have a compression fracture of the lumbar spine, being managed conservatively. She was started on ceftriaxone and azithromycin. She had no fever here. Her cough has been productive off and on and she did cough up some Pseudomonas on the 03/02/18. Today, she had occasional cough. Her breathing is little bit better. She has ongoing pain in her low back. PAST MEDICAL HISTORY: 1. Small cell lung cancer, recent chemotherapy and right chest port. 2. COPD, on supplemental oxygen. 3. Atrial fibrillation. 4. Hyperlipidemia. 5. Hypertension. 6. Nephrolithiasis. 7. Osteoarthritis. 8. Obstructive sleep apnea. 9. Morbid obesity. 10. Status post carpal tunnel repair. 11. Status post cataract surgery. 12. Status post hemorrhoidectomy. MEDICATIONS: 1. Tylenol. 2. Albuterol. 3. Lipitor. 4. Ceftriaxone. 5. Cholecalciferol. 6. Diltiazem. 7. Fentanyl patch. 8. Heparin flush for the port. 9. Guaifenesin. 10. Magnesium oxide. 11. Singulair. 12. Omeprazole. 13. Rivaroxaban. 14. Tamsulosin. 15. Azithromycin 500 mg daily. ALLERGIES: CLINDAMYCIN, CODEINE, EGG, LEVOFLOXACIN, SULFA. FAMILY HISTORY: No recurrent infections. SOCIAL HISTORY: She lives in [place]. No travel. REVIEW OF SYSTEMS: All negative except as noted above in the history of present illness to a 14-point review. PHYSICAL EXAMINATION: Vital Signs: Temperature 37, heart rate 90, respiratory rate 20, blood pressure 140/62, oxygen saturation 98% on 5 L by nasal cannula. In general, she is awake, not in distress. Neurologic: She is oriented x3. Follows all commands. HEENT: There is no conjunctival hemorrhage. Oropharynx without lesions. Neck is supple without mass. Heart is regular rate and rhythm without murmurs, rubs, or gallops. There is a right chest port. Lungs have decreased breath sounds at the left base without egophony. Abdomen: Soft , nontender, and nondistended. There are bowel sounds present. Skin: There is no rash or splinter hemorrhage. Musculoskeletal: There is no cervical or thoracic spine tenderness to palpation. LABORATORY DATA: White blood cell count 14,000 down from 22,000, hemoglobin 7, platelets 97. Creatinine 0.6. Please see impressions and recommendations as outlined above. Thank you for asking me to see Ms. Giraldo in consultation. [id number]/[facility] #: [id number] CR
--- NOTE | 2018-03-05 11:05 | PN ---
Progress Note - Progress Note Date of Service: 03/05/18 SOAP: Subjective: still w significant pain. reports brace was so tight she felt something "pop" when they placed it. too painful to wear and could not breath. pain still 8/ 10 even while sitting still. no BM since saturday Objective: Vital Signs Temp Pulse Resp BP Pulse Ox 98.2 F 92 22 138/62 98 03/05/18 07:40 03/05/18 07:40 03/05/18 08:00 03/05/18 07:40 03/05/18 07:40 sitting up uncomfortable and mildly tachypneic related to pain distant bs s1 s2 nl soft obese nt no le edema did not ambulate 2/2 pain, limited leg movement 2/2 pain Laboratory Results - last 24 hr 03/04/18 03/04/18 03/05/18 12:45 12:45 04:45 WBC 14.3 H 14.6 H RBC 2.49 L 2.35 L Hgb 8.0 L 7.6 L Hct 24 L 22 L MCV 95 95 MCH 32 H 32 H MCHC 34 34 RDW 24 H 24 H Plt Count 104 L 97 L MPV 8.3 7.8 Neut % (Auto) 86.5 86.7 Lymph % (Auto) 2.4 2.3 [place] % (Auto) 10.5 10.6 Eos % (Auto) 0.4 0.2 Baso % (Auto) 0.2 0.2 Absolute Neuts (auto) 12.4 H 12.7 H Absolute Lymphs (auto) 0.3 L 0.3 L Absolute Monos (auto) 1.5 H 1.5 H Absolute Eos (auto) 0.1 0 Absolute Basos (auto) 0 0 Absolute Nucleated RBC 0 0 Nucleated RBC % 0.3 0.2 Sodium 135 Potassium 3.4 L Chloride 101 Carbon Dioxide 28 Anion Gap 6 BUN 13 Creatinine 0.61 Est GFR ( Amer) 117.0 Est GFR (Non-Af Amer) 96.7 BUN/Creatinine Ratio 21.3 H Glucose 90 Calcium 8.3 L Acetaminophen (Tylenol Tab*) 650 mg PO Q4H PRN PRN Reason: pain/fever Albuterol (Ventolin Hfa Inhaler*) 2 puff INH Q4H PRN PRN Reason: SOB/WHEEZING Albuterol/Ipratropium (Duoneb (Albuterol 2.5 Mg/Ipratropium 0.5 Mg)) 1 neb INH Q4H PRN PRN Reason: SOB/WHEEZING Last Admin: 03/03/18 17:39 Dose: 1 neb Atorvastatin Calcium (Lipitor*) 40 mg PO QAM [facility] Last Admin: 03/05/18 07:37 Dose: 40 mg Calcitonin [place] (Fortical(Nr)) 200 units ALT NARE DAILY [facility]; Protocol Cholecalciferol (Vitamin D Tab*) 1,000 units PO QAM [facility] Last Admin: 03/05/18 07:38 Dose: 1,000 units Diltiazem HCl (Cardizem Cd Cap*) 360 mg PO QAM [facility] Last Admin: 03/05/18 07:38 Dose: 360 mg Docusate Sodium (Colace Cap*) 100 mg PO BID PRN PRN Reason: CONSTIPATION Last Admin: 03/05/18 07:48 Dose: 100 mg Fentanyl (Duragesic Patch 12 Mcg/Hr *) 12 mcg TRANSDERM Q72H [facility] Last Admin: 03/03/18 11:42 Dose: 12 mcg Guaifenesin (Mucinex*) 600 mg PO BID [facility] Last Admin: 03/05/18 07:38 Dose: 600 mg Heparin Sodium (Porcine) (Heparin Flush Port (Ivad)) 5 ml FLUSH DAILY [facility]; Protocol Last Admin: 03/05/18 08:01 Dose: Not Given Cefepime HCl (Maxipime 2 Gm In Dextrose Duplex (*)) 2 gm in 50 mls @ 100 mls/ hr IV Q12H [facility] Last Admin: 03/05/18 02:33 Dose: 100 mls/hr Lactulose (Lactulose*) 30 ml PO TID [facility] Lidocaine (Lidoderm 5% Patch*) 1 patch TRANSDERM DAILY [facility] Last Admin: 03/05/18 07:37 Dose: 1 patch Loperamide HCl (Imodium Cap*) 2 mg PO .SEE DIRECTIONS PRN PRN Reason: DIARRHEA Magnesium Oxide (Magox 400 Tab*) 800 mg PO BID [facility] Last Admin: 03/05/18 07:38 Dose: 800 mg Mometasone Furoate (Asmanex 220 Mcg Mdi *) 1 puff INH BID [facility]; Protocol PRN Reason: SHORTNESS OF BREATH Mometasone Furoate/Formoterol Fumar (Dulera 200/5 Mdi*) 2 puff INH BID [facility]; Protocol Last Admin: 03/05/18 07:24 Dose: 2 puff Montelukast Sodium (Singulair Tab*) 10 mg PO DAILY PRN PRN Reason: Allergy Symptoms Morphine Sulfate (Morphine Inj ((Syringe))*) 1 mg IV Q1H PRN PRN Reason: SEVERE PAIN Last Admin: 03/05/18 07:48 Dose: 1 mg Omeprazole (Prilosec Cap*) 20 mg PO DAILY@0730 [facility] Last Admin: 03/05/18 07:37 Dose: 20 mg Oxycodone HCl (Roxycodone Tab*) 5 mg PO Q6H PRN PRN Reason: pain Last Admin: 03/05/18 04:38 Dose: 5 mg Pharmacy Profile Note (Lidocaine Patch Remove*) 1 note PATCH OFF 2100 [facility] Last Admin: 03/04/18 20:46 Dose: 1 note Pharmacy Profile Note (Fentanyl Patch Check Q Shift) 1 note N/A 0700,1900 [facility] Last Admin: 03/05/18 06:34 Dose: 1 note Polyethylene Glycol/Electrolytes (Miralax*) 17 gm PO DAILY PRN PRN Reason: CONSTIPATION Last Admin: 03/05/18 07:48 Dose: 17 gm Potassium Chloride (Klor Con Er Tab*) 20 meq PO DAILY [facility] Last Admin: 03/05/18 07:37 Dose: 20 meq Rivaroxaban (Xarelto(*)) 20 mg PO QPM [facility] Last Admin: 03/04/18 17:32 Dose: 20 mg Senna (Senokot Tab*) 1 tab PO BEDTIME PRN PRN Reason: CONSTIPATION Last Admin: 03/04/18 20:50 Dose: 1 tab Tamsulosin HCl (Flomax Cap*) 0.4 mg PO BEDTIME [facility] Last Admin: 03/04/18 20:45 Dose: 0.4 mg Tiotropium [place] (Spiriva Cap.Inh*) 1 cap INH 1230 [facility] Last Admin: 03/05/18 07:24 Dose: 1 cap Assessment: 72 yo female with history of SCLC s/p definitive therapy (C5D1 Carbo/Etoposide 01/29) admitted with RLL pneumonia and new L1 compression fracture. Plan: 1. PNA: sputum growing pseudomonas and antibiotics changed by ID for coverage -cefepime and ?azithro PO 2. Compression fracture: appreciate neurosurgical consult -TLSO brace does not appear to be fitting appropriately, SW to call company to come refit again - stable fracture, will need PT and likely rehab, PMRU consult pending -add calcitonin for pain control - Fentanyl 12mcg transdermally q72hrs, started 48 hrs ago, can increase tomorrow if needed 3. Cystitis: VRE felt to be colonization and not true cystitis, no Abx for this 4. Hypokalemia: on PO replacement, labs today pending 5. Anemia: transfuse Hb <7..5 6. Constipation: add lactulose today 7. SCLC: CT from admission restaging appears stable
[2018-03-05] MEDS: CMCS: Calcitonin NASAL(NF) 200 UNITS/SPRAY NASAL.SPR ALT NARE SCH (11:58)
[2018-03-05] MEDS: Rivaroxaban TAB(*) 20 MG TAB PO SCH (17:20)
[2018-03-05] MEDS: Tamsulosin CAP* 0.4 MG PO SCH (21:42)
[2018-03-05] MEDS: Lidocaine Patch REMOVE* 1 NOTE MISC PATCH OFF SCH (21:49)
[2018-03-06] MEDS: Cefepime 2 GM in Dextrose(*) 2 GM/50 ML BAG IV SCH ×2 (03:16→15:43)
[2018-03-06] MEDS: Morphine INJ* 2 MG/ML 1 ML SYRINGE (TWO MG - NEW SYRINGE VERSION) IV PRN ×3 (04:59→20:39)
[2018-03-06 05:24] LABS: ABS Basophils 0.1 10^3/ul (0-0.2); ABS Eosinophils 0 10^3/ul (0-0.6); ABS Lymphocytes 0.3 10^3/ul (1.0-4.8); ABS Monocytes 1.1 10^3/ul (0-0.8); ABS Neutrophils 15.7 10^3/ul (1.5-7.7); ABS Nucleated RBC 0 10^3/ul; Eosinophil % 0.1 %; Hematocrit 24 % (35-47); Lymphocyte % 1.6 %; Mean Corpuscular HGB Conc 34 g/dl (31-36); Mean Corpuscular Hemoglobin 32 pg (27-31); Mean Corpuscular Volume 96 fL (80-97); Mean Platelet Volume 8.2 fL (7.4-10.4); Nucleated Red Blood Cells % 0.1; Platelet Count 102 10^3/ul (150-450); Red Blood Count 2.49 10^6/ul (4.00-5.40); Red Cell Distribution Width 24 % (10.5-15); White Blood Count 17.2 10^3/ul (3.5-10.8)
[2018-03-06 05:41] LABS: Albumin 2.7 g/dL (3.2-5.2); Albumin/Globulin Ratio 0.9 (1-3); BUN/Creatinine Ratio 23.5 (8-20); Calcium 9.1 mg/dL (8.6-10.3); EGFR Non-African American 85.3 (>60); Potassium 3.6 mmol/L (3.5-5.0); Total Bilirubin 0.9 mg/dL (0.2-1.0); Total Protein 5.7 g/dL (6.4-8.9)
[2018-03-06] MEDS: fentaNYL Patch Check Q Shift 1 NOTE SCH ×2 (05:41→19:37)
[2018-03-06] MEDS: Mometasone/Formoter 200/5 MDI INH SCH ×3 (08:26→20:55)
[2018-03-06] MEDS: Tiotropium CAP.INH* CAP.INH/18 MCG (USE ORDER SET !) INH SCH ×2 (08:26→11:48)
[2018-03-06] MEDS: Docusate CAP* 100 MG PO PRN (09:06)
[2018-03-06] MEDS: Omeprazole CAP* 20 MG PO SCH (09:06)
[2018-03-06] MEDS: Cholecalciferol TAB* 1000 UNITS PO SCH (09:06)
[2018-03-06] MEDS: Magnesium Oxide TAB* 400 MG PO SCH ×2 (09:07→20:40)
[2018-03-06] MEDS: guaiFENesin ER TAB 600 MG PO SCH ×2 (09:07→20:40)
[2018-03-06] MEDS: Atorvastatin* 40 MG TAB PO SCH (09:07)
[2018-03-06] MEDS: Polyethylene Glycol 3350* 17 GM PACKET PO PRN (09:07)
[2018-03-06] MEDS: Potassium Chlor TAB* 20 MEQ TAB.ER PO SCH (09:07)
[2018-03-06] MEDS: oxyCODONE TAB* 5 MG TAB PO PRN (09:07)
[2018-03-06] MEDS: CMCS: Calcitonin NASAL(NF) 200 UNITS/SPRAY NASAL.SPR ALT NARE SCH (09:08)
[2018-03-06] MEDS: Diltiazem CD CAP* 180 MG PO SCH (09:08)
[2018-03-06] MEDS: Lidocaine PATCH 5%* 1 PATCH TRANSDERM SCH (09:12)
--- NOTE | 2018-03-06 09:54 | PN ---
Progress Note - Progress Note Date of Service: 03/06/18 SOAP: Subjective: pain maybe very slightly better today. still no BM Objective: Vital Signs Temp Pulse Resp BP Pulse Ox 97.8 F 91 22 131/57 97 03/06/18 07:35 03/06/18 08:27 03/06/18 09:07 03/06/18 07:35 03/06/18 08:27 morbidly obese F in nad lying flat diffuse mild insp wheeze s1 s2 distant obese nt +bs trace LE edema A+O x 3 Laboratory Results - last 24 hr 03/06/18 03/06/18 05:12 05:12 WBC 17.2 H RBC 2.49 L Hgb 8.0 L Hct 24 L MCV 96 MCH 32 H MCHC 34 RDW 24 H Plt Count 102 L MPV 8.2 Neut % (Auto) 91.2 Lymph % (Auto) 1.6 [place] % (Auto) 6.6 Eos % (Auto) 0.1 Baso % (Auto) 0.5 Absolute Neuts (auto) 15.7 H Absolute Lymphs (auto) 0.3 L Absolute Monos (auto) 1.1 H Absolute Eos (auto) 0 Absolute Basos (auto) 0.1 Absolute Nucleated RBC 0 Nucleated RBC % 0.1 Sodium 134 L Potassium 3.6 Chloride 97 L Carbon Dioxide 29 Anion Gap 8 BUN 16 Creatinine 0.68 Est GFR ( Amer) 103.2 Est GFR (Non-Af Amer) 85.3 BUN/Creatinine Ratio 23.5 H Glucose 131 H Calcium 9.1 Total Bilirubin 0.90 AST 32 ALT 57 H Alkaline Phosphatase 174 H Total Protein 5.7 L Albumin 2.7 L Globulin 3.0 Albumin/Globulin Ratio 0.9 L Acetaminophen (Tylenol Tab*) 650 mg PO Q4H PRN PRN Reason: pain/fever Albuterol (Ventolin Hfa Inhaler*) 2 puff INH Q4H PRN PRN Reason: SOB/WHEEZING Albuterol/Ipratropium (Duoneb (Albuterol 2.5 Mg/Ipratropium 0.5 Mg)) 1 neb INH Q4H PRN PRN Reason: SOB/WHEEZING Last Admin: 03/03/18 17:39 Dose: 1 neb Atorvastatin Calcium (Lipitor*) 40 mg PO QAM [facility] Last Admin: 03/06/18 09:07 Dose: 40 mg Calcitonin [place] (Fortical(Nr)) 200 units ALT NARE DAILY [facility]; Protocol Last Admin: 03/06/18 09:08 Dose: 200 units Cholecalciferol (Vitamin D Tab*) 1,000 units PO QAM [facility] Last Admin: 03/06/18 09:06 Dose: 1,000 units Diltiazem HCl (Cardizem Cd Cap*) 360 mg PO QAM [facility] Last Admin: 03/06/18 09:08 Dose: 360 mg Docusate Sodium (Colace Cap*) 100 mg PO BID PRN PRN Reason: CONSTIPATION Last Admin: 03/06/18 09:06 Dose: 100 mg Fentanyl (Duragesic Patch 25 Mcg/Hr*) 25 mcg TRANSDERM Q72H [facility] Guaifenesin (Mucinex*) 600 mg PO BID [facility] Last Admin: 03/06/18 09:07 Dose: 600 mg Heparin Sodium (Porcine) (Heparin Flush Port (Ivad)) 5 ml FLUSH DAILY [facility]; Protocol Last Admin: 03/06/18 09:08 Dose: Not Given Cefepime HCl (Maxipime 2 Gm In Dextrose Duplex (*)) 2 gm in 50 mls @ 100 mls/ hr IV Q12H [facility] Last Admin: 03/06/18 03:16 Dose: 100 mls/hr Lactulose (Lactulose*) 30 ml PO TID [facility] Last Admin: 03/06/18 09:11 Dose: 30 ml Lidocaine (Lidoderm 5% Patch*) 1 patch TRANSDERM DAILY [facility] Last Admin: 03/06/18 09:12 Dose: 1 patch Loperamide HCl (Imodium Cap*) 2 mg PO .SEE DIRECTIONS PRN PRN Reason: DIARRHEA Magnesium Oxide (Magox 400 Tab*) 800 mg PO BID [facility] Last Admin: 03/06/18 09:07 Dose: 800 mg Mometasone Furoate (Asmanex 220 Mcg Mdi *) 1 puff INH BID [facility]; Protocol PRN Reason: SHORTNESS OF BREATH Mometasone Furoate/Formoterol Fumar (Dulera 200/5 Mdi*) 2 puff INH BID [facility]; Protocol Last Admin: 03/06/18 08:26 Dose: 2 puff Montelukast Sodium (Singulair Tab*) 10 mg PO DAILY PRN PRN Reason: Allergy Symptoms Morphine Sulfate (Morphine Inj ((Syringe))*) 1 mg IV Q1H PRN PRN Reason: SEVERE PAIN Last Admin: 03/06/18 04:59 Dose: 1 mg Omeprazole (Prilosec Cap*) 20 mg PO DAILY@0730 [facility] Last Admin: 03/06/18 09:06 Dose: 20 mg Oxycodone HCl (Roxycodone Tab*) 5 mg PO Q6H PRN PRN Reason: pain Last Admin: 03/06/18 09:07 Dose: 5 mg Pharmacy Profile Note (Lidocaine Patch Remove*) 1 note PATCH OFF 2100 [facility] Last Admin: 03/05/18 21:49 Dose: 1 note Pharmacy Profile Note (Fentanyl Patch Check Q Shift) 1 note N/A 0700,1900 [facility] Last Admin: 03/06/18 05:41 Dose: 1 note Polyethylene Glycol/Electrolytes (Miralax*) 17 gm PO DAILY PRN PRN Reason: CONSTIPATION Last Admin: 03/06/18 09:07 Dose: 17 gm Potassium Chloride (Klor Con Er Tab*) 20 meq PO DAILY [facility] Last Admin: 03/06/18 09:07 Dose: 20 meq Prednisone (Deltasone Tab*) 20 mg PO DAILY [facility] Rivaroxaban (Xarelto(*)) 20 mg PO QPM [facility] Last Admin: 03/05/18 17:20 Dose: 20 mg Senna (Senokot Tab*) 1 tab PO BEDTIME PRN PRN Reason: CONSTIPATION Last Admin: 03/04/18 20:50 Dose: 1 tab Tamsulosin HCl (Flomax Cap*) 0.4 mg PO BEDTIME [facility] Last Admin: 03/05/18 21:42 Dose: 0.4 mg Tiotropium [place] (Spiriva Cap.Inh*) 1 cap INH 1230 [facility] Last Admin: 03/06/18 08:26 Dose: 1 cap Assessment: 72 yo female with history of SCLC s/p definitive therapy (C5D1 Carbo/Etoposide 01/29) admitted with RLL pneumonia and new L1 compression fracture. Her pain is slightly better but she is still requiring frequent narcotics PRN. Plan: 1. PNA: sputum growing pseudomonas and antibiotics changed by ID for coverage -cefepime -dc arredondo 2. Compression fracture: appreciate neurosurgical consult -TLSO brace to be refit today - stable fracture, will need PT and likely rehab, PMRU consult pending -cont calcitonin for pain control - Fentanyl 25 mcg increased today 3. asymptomatic bacturia: VRE felt to be colonization and not true cystitis, no Abx for this -d/c arredondo 4. Hypokalemia: on PO replacement 5. Anemia: transfuse Hb <7..5 6. Constipation: cont lactulose 7. SCLC: CT from admission restaging appears stable 8. COPD: increased wheezing today, resume home steroids
[2018-03-06] MEDS: fentaNYL PATCH 25 MCG/HR TRANSDERM SCH (10:36)
[2018-03-06] MEDS: predniSONE TAB* 20 MG PO SCH (10:36)
[2018-03-06] MEDS: Rivaroxaban TAB(*) 20 MG TAB PO SCH (17:57)
[2018-03-06] MEDS: Albuterol/Ipratropium NEB.SOL* Albuterol 2.5 MG/Ipratropium 0.5 MG 3 ML INH PRN (18:05)
[2018-03-06] MEDS: Tamsulosin CAP* 0.4 MG PO SCH (20:40)
[2018-03-06] MEDS: Benzonatate CAP* 100 MG PO SCH (20:40)
[2018-03-06] MEDS: Lidocaine Patch REMOVE* 1 NOTE MISC PATCH OFF SCH (20:46)
[2018-03-07] MEDS: Cefepime 2 GM in Dextrose(*) 2 GM/50 ML BAG IV SCH ×2 (03:16→15:55)
[2018-03-07] MEDS: oxyCODONE TAB* 5 MG TAB PO PRN (04:46)
[2018-03-07 06:30] LABS: ABS Basophils 0 10^3/ul (0-0.2); ABS Eosinophils 0 10^3/ul (0-0.6); ABS Lymphocytes 0.3 10^3/ul (1.0-4.8); ABS Neutrophils 17.7 10^3/ul (1.5-7.7); ABS Nucleated RBC 0 10^3/ul; Eosinophil % 0.1 %; Hematocrit 22 % (35-47); Hemoglobin 7.2 g/dl (12.0-16.0); Lymphocyte % 1.5 %; Mean Corpuscular HGB Conc 33 g/dl (31-36); Mean Corpuscular Hemoglobin 32 pg (27-31); Mean Corpuscular Volume 97 fL (80-97); Mean Platelet Volume 8.3 fL (7.4-10.4); Nucleated Red Blood Cells % 0.1; Platelet Count 97 10^3/ul (150-450); Red Blood Count 2.26 10^6/ul (4.00-5.40); Red Cell Distribution Width 24 % (10.5-15)
[2018-03-07 06:47] LABS: Albumin 2.7 g/dL (3.2-5.2); Albumin/Globulin Ratio 0.9 (1-3); BUN/Creatinine Ratio 29.8 (8-20); Calcium 9.2 mg/dL (8.6-10.3); EGFR Non-African American 104.6 (>60); Globulin 3.1 g/dL (2-4); Potassium 3.8 mmol/L (3.5-5.0); Total Bilirubin 0.6 mg/dL (0.2-1.0); Total Protein 5.8 g/dL (6.4-8.9)
[2018-03-07] MEDS: fentaNYL Patch Check Q Shift 1 NOTE SCH ×2 (07:19→18:57)
[2018-03-07] MEDS: Tiotropium CAP.INH* CAP.INH/18 MCG (USE ORDER SET !) INH SCH ×2 (07:42→11:15)
[2018-03-07] MEDS: Mometasone/Formoter 200/5 MDI INH SCH ×2 (07:43→20:00)
[2018-03-07] MEDS: Albuterol/Ipratropium NEB.SOL* Albuterol 2.5 MG/Ipratropium 0.5 MG 3 ML INH PRN (07:48)
[2018-03-07] MEDS: CMCS: Calcitonin NASAL(NF) 200 UNITS/SPRAY NASAL.SPR ALT NARE SCH (08:08)
[2018-03-07] MEDS: Lidocaine PATCH 5%* 1 PATCH TRANSDERM SCH (08:10)
[2018-03-07] MEDS: Magnesium Oxide TAB* 400 MG PO SCH ×2 (08:11→20:34)
[2018-03-07] MEDS: Atorvastatin* 40 MG TAB PO SCH (08:11)
[2018-03-07] MEDS: Benzonatate CAP* 100 MG PO SCH ×3 (08:11→20:34)
[2018-03-07] MEDS: Potassium Chlor TAB* 20 MEQ TAB.ER PO SCH (08:12)
[2018-03-07] MEDS: Diltiazem CD CAP* 180 MG PO SCH (08:12)
[2018-03-07] MEDS: Omeprazole CAP* 20 MG PO SCH (08:12)
[2018-03-07] MEDS: predniSONE TAB* 20 MG PO SCH (08:12)
[2018-03-07] MEDS: guaiFENesin ER TAB 600 MG PO SCH ×2 (08:12→20:34)
[2018-03-07] MEDS: Cholecalciferol TAB* 1000 UNITS PO SCH (08:12)
[2018-03-07] MEDS: Morphine INJ* 2 MG/ML 1 ML SYRINGE (TWO MG - NEW SYRINGE VERSION) IV PRN ×3 (09:42→20:35)
--- NOTE | 2018-03-07 11:23 | PN ---
Progress Note - Progress Note Date of Service: 03/07/18 SOAP: Subjective: [Brace was successfully refit yesterday. She was able to stand with the brace in place. She has persistent pain, reports ~7/10 at rest, no exacerbated by standing. Mckeon was removed yesterday, but she developed abd pain with evidence of significant retention on bladder scan. Mckeon was replaced and her abd pain improved.] Objective: [ Laboratory Results - last 24 hr 03/07/18 03/07/18 03/07/18 06:10 06:10 06:10 WBC 19.0 H RBC 2.26 L Hgb 7.2 L Hct 22 L MCV 97 MCH 32 H MCHC 33 RDW 24 H Plt Count 97 L MPV 8.3 Neut % (Auto) 93.3 Lymph % (Auto) 1.5 Crook % (Auto) 5.0 Eos % (Auto) 0.1 Baso % (Auto) 0.1 Absolute Neuts (auto) 17.7 H Absolute Lymphs (auto) 0.3 L Absolute Monos (auto) 1.0 H Absolute Eos (auto) 0 Absolute Basos (auto) 0 Absolute Nucleated RBC 0 Nucleated RBC % 0.1 Sodium 134 L Potassium 3.8 Chloride 98 L Carbon Dioxide 30 Anion Gap 6 BUN 17 Creatinine 0.57 Est GFR ( Amer) 126.5 Est GFR (Non-Af Amer) 104.6 BUN/Creatinine Ratio 29.8 H Glucose 124 H Calcium 9.2 Total Bilirubin 0.60 AST 20 ALT 51 Alkaline Phosphatase 173 H Total Protein 5.8 L Albumin 2.7 L Globulin 3.1 Albumin/Globulin Ratio 0.9 L Blood Type O Negative Crossmatch See Detail Acetaminophen (Tylenol Tab*) 650 mg PO Q4H PRN PRN Reason: pain/fever Albuterol (Ventolin Hfa Inhaler*) 2 puff INH Q4H PRN PRN Reason: SOB/WHEEZING Albuterol/Ipratropium (Duoneb (Albuterol 2.5 Mg/Ipratropium 0.5 Mg)) 1 neb INH Q4H PRN PRN Reason: SOB/WHEEZING Last Admin: 03/07/18 07:48 Dose: 1 neb Atorvastatin Calcium (Lipitor*) 40 mg PO QAM [facility] Last Admin: 03/07/18 08:11 Dose: 40 mg Benzonatate (Tessalon Cap*) 200 mg PO TID [facility] Last Admin: 03/07/18 08:11 Dose: 200 mg Calcitonin [place] (Fortical(Nr)) 200 units ALT NARE DAILY [facility]; Protocol Last Admin: 03/07/18 08:08 Dose: 200 units Cholecalciferol (Vitamin D Tab*) 1,000 units PO QAM [facility] Last Admin: 03/07/18 08:12 Dose: 1,000 units Diltiazem HCl (Cardizem Cd Cap*) 360 mg PO QAM [facility] Last Admin: 03/07/18 08:12 Dose: 360 mg Docusate Sodium (Colace Cap*) 100 mg PO BID PRN PRN Reason: CONSTIPATION Last Admin: 03/06/18 09:06 Dose: 100 mg Fentanyl (Duragesic Patch 25 Mcg/Hr*) 25 mcg TRANSDERM Q72H [facility] Last Admin: 03/06/18 10:36 Dose: 25 mcg Guaifenesin (Mucinex*) 600 mg PO BID [facility] Last Admin: 03/07/18 08:12 Dose: 600 mg Heparin Sodium (Porcine) (Heparin Flush Port (Ivad)) 5 ml FLUSH DAILY [facility]; Protocol Last Admin: 03/07/18 08:13 Dose: Not Given Cefepime HCl (Maxipime 2 Gm In Dextrose Duplex (*)) 2 gm in 50 mls @ 100 mls/ hr IV Q12H [facility] Last Admin: 03/07/18 03:16 Dose: 100 mls/hr Lactulose (Lactulose*) 30 ml PO TID [facility] Last Admin: 03/07/18 08:14 Dose: Not Given Lidocaine (Lidoderm 5% Patch*) 1 patch TRANSDERM DAILY [facility] Last Admin: 03/07/18 08:10 Dose: 1 patch Loperamide HCl (Imodium Cap*) 2 mg PO .SEE DIRECTIONS PRN PRN Reason: DIARRHEA Magnesium Oxide (Magox 400 Tab*) 800 mg PO BID [facility] Last Admin: 03/07/18 08:11 Dose: 800 mg Mometasone Furoate (Asmanex 220 Mcg Mdi *) 1 puff INH BID PRN; Protocol PRN Reason: SHORTNESS OF BREATH Mometasone Furoate/Formoterol Fumar (Dulera 200/5 Mdi*) 2 puff INH BID [facility]; Protocol Last Admin: 03/07/18 07:43 Dose: 2 puff Montelukast Sodium (Singulair Tab*) 10 mg PO DAILY PRN PRN Reason: Allergy Symptoms Morphine Sulfate (Morphine Inj ((Syringe))*) 1 mg IV Q1H PRN PRN Reason: SEVERE PAIN Last Admin: 03/07/18 09:42 Dose: 1 mg Omeprazole (Prilosec Cap*) 20 mg PO DAILY@0730 [facility] Last Admin: 03/07/18 08:12 Dose: 20 mg Oxycodone HCl (Roxycodone Tab*) 5 mg PO Q6H PRN PRN Reason: pain Last Admin: 03/07/18 04:46 Dose: 5 mg Pharmacy Profile Note (Lidocaine Patch Remove*) 1 note PATCH OFF 2100 [facility] Last Admin: 03/06/18 20:46 Dose: 1 note Pharmacy Profile Note (Fentanyl Patch Check Q Shift) 1 note N/A 0700,1900 [facility] Last Admin: 03/07/18 07:19 Dose: 1 note Polyethylene Glycol/Electrolytes (Miralax*) 17 gm PO DAILY PRN PRN Reason: CONSTIPATION Last Admin: 03/06/18 09:07 Dose: 17 gm Potassium Chloride (Klor Con Er Tab*) 20 meq PO DAILY [facility] Last Admin: 03/07/18 08:12 Dose: 20 meq Prednisone (Deltasone Tab*) 20 mg PO DAILY [facility] Last Admin: 03/07/18 08:12 Dose: 20 mg Rivaroxaban (Xarelto(*)) 20 mg PO QPM [facility] Last Admin: 03/06/18 17:57 Dose: 20 mg Senna (Senokot Tab*) 1 tab PO BEDTIME PRN PRN Reason: CONSTIPATION Last Admin: 03/04/18 20:50 Dose: 1 tab Tamsulosin HCl (Flomax Cap*) 0.4 mg PO BEDTIME [facility] Last Admin: 03/06/18 20:40 Dose: 0.4 mg Tiotropium [place] (Spiriva Cap.Inh*) 1 cap INH 1230 [facility] Last Admin: 03/07/18 07:42 Dose: 1 cap Vital Signs: Temp Pulse Resp BP Pulse Ox 98.5 F 88 18 145/50 100 03/07/18 07:55 03/07/18 07:55 03/07/18 09:42 03/07/18 07:55 03/07/18 07:55 Exam: Gen: 72 yo female that appears chronically ill, in NAD. Accompanied by her HEENT: MMM CV: RRR, no m/r/g Resp: diffuse rhonchi and wheezing Abd: mildly distended but soft, TTP over midepigastrum Ext: trace LE edema] Assessment: 72 yo female with history of SCLC s/p definitive therapy (C5D1 Carbo/Etoposide 01/29) admitted with RLL pneumonia and new L1 compression fracture. Her pain is slightly better but she is still requiring frequent narcotics PRN. Plan: 1. PNA: - sputum growing pseudomonas - cont cefepime 2. Compression fracture: appreciate neurosurgical consult -TLSO brace now seems to be fitting appropriately - stable fracture, will need PT and likely rehab, PMRU consult pending - cont calcitonin for pain control - Fentanyl 37.5 mcg (increased today) 3. Urinary retention with bacturia: - Mckeon dc'd yesterday but unfortunately she began retaining again - she has had mild retention previously and improved with starting Flomax - she remains on Flomax at this time - review the clinical significance of her VRE bacturia with ID - may benefit from attempting to treat the VRE and see if the retention improves - no significant retropulsion of her L1 fragments noted on CT or new neurological symptoms more suggestive of cauda equina 4. Hypokalemia: on PO replacement 5. Anemia: transfuse 1U PRBCs today, Hgb 7.2 g/dl 6. Constipation: cont lactulose 7. SCLC: CT from admission restaging appears stable 8. COPD: - cont home steroids Dispo: pending decision from PMRU otherwise likely [facility] early next week
[2018-03-07] MEDS: Rivaroxaban TAB(*) 20 MG TAB PO SCH (17:26)
[2018-03-07] MEDS: Tamsulosin CAP* 0.4 MG PO SCH (20:34)
[2018-03-07] MEDS: Lidocaine Patch REMOVE* 1 NOTE MISC PATCH OFF SCH (20:57)
[2018-03-08] MEDS: Cefepime 2 GM in Dextrose(*) 2 GM/50 ML BAG IV SCH ×2 (02:46→15:29)
[2018-03-08] MEDS ORDERED: Morphine VIAL* 4 MG/ML VIAL (1 ml vial) ONE (03:27)
[2018-03-08] MEDS: fentaNYL Patch Check Q Shift 1 NOTE SCH ×2 (06:37→19:13)
[2018-03-08] MEDS: Omeprazole CAP* 20 MG PO SCH (07:33)
[2018-03-08] MEDS: oxyCODONE TAB* 5 MG TAB PO PRN ×2 (07:39→22:21)
[2018-03-08] MEDS: Mometasone/Formoter 200/5 MDI INH SCH ×2 (07:44→20:01)
[2018-03-08] MEDS: Tiotropium CAP.INH* CAP.INH/18 MCG (USE ORDER SET !) INH SCH ×2 (07:45→12:15)
[2018-03-08 08:30] LABS: ABS Basophils 0.1 10^3/ul (0-0.2); ABS Eosinophils 0 10^3/ul (0-0.6); ABS Lymphocytes 0.6 10^3/ul (1.0-4.8); ABS Monocytes 0.5 10^3/ul (0-0.8); ABS Neutrophils 14.7 10^3/ul (1.5-7.7); ABS Nucleated RBC 0 10^3/ul; Eosinophil % 0.1 %; Hematocrit 22 % (35-47); Hemoglobin 7.7 g/dl (12.0-16.0); Lymphocyte % 3.5 %; Mean Corpuscular HGB Conc 34 g/dl (31-36); Mean Corpuscular Hemoglobin 33 pg (27-31); Mean Corpuscular Volume 95 fL (80-97); Mean Platelet Volume 8.4 fL (7.4-10.4); Nucleated Red Blood Cells % 0.2; Platelet Count 101 10^3/ul (150-450); Red Blood Count 2.36 10^6/ul (4.00-5.40); Red Cell Distribution Width 22 % (10.5-15); White Blood Count 15.9 10^3/ul (3.5-10.8)
[2018-03-08 08:43] LABS: Albumin 2.7 g/dL (3.2-5.2); Albumin/Globulin Ratio 0.9 (1-3); BUN/Creatinine Ratio 30.9 (8-20); Calcium 9.4 mg/dL (8.6-10.3); Potassium 3.7 mmol/L (3.5-5.0); Total Bilirubin 0.5 mg/dL (0.2-1.0); Total Protein 5.7 g/dL (6.4-8.9)
[2018-03-08] MEDS: Benzonatate CAP* 100 MG PO SCH ×3 (09:14→22:20)
[2018-03-08] MEDS: guaiFENesin ER TAB 600 MG PO SCH ×2 (09:14→22:20)
[2018-03-08] MEDS: Potassium Chlor TAB* 20 MEQ TAB.ER PO SCH (09:14)
[2018-03-08] MEDS: Atorvastatin* 40 MG TAB PO SCH (09:14)
[2018-03-08] MEDS: Magnesium Oxide TAB* 400 MG PO SCH ×2 (09:15→22:20)
[2018-03-08] MEDS: Cholecalciferol TAB* 1000 UNITS PO SCH (09:15)
[2018-03-08] MEDS: Diltiazem CD CAP* 180 MG PO SCH (09:15)
[2018-03-08] MEDS: predniSONE TAB* 20 MG PO SCH (09:15)
[2018-03-08] MEDS: CMCS: Calcitonin NASAL(NF) 200 UNITS/SPRAY NASAL.SPR ALT NARE SCH (09:16)
[2018-03-08] MEDS: Lidocaine PATCH 5%* 1 PATCH TRANSDERM SCH (09:18)
[2018-03-08] MEDS: Morphine VIAL* 4 MG/ML VIAL (1 ml vial) IV PRN ×4 (09:21→19:49)
[2018-03-08] MEDS: Linezolid TAB* 600 MG PO SCH ×2 (11:07→22:20)
[2018-03-08] MEDS: Rivaroxaban TAB(*) 20 MG TAB PO SCH (17:05)
[2018-03-08] MEDS: Tamsulosin CAP* 0.4 MG PO SCH (22:20)
[2018-03-08] MEDS: Lidocaine Patch REMOVE* 1 NOTE MISC PATCH OFF SCH (22:21)
[2018-03-09] MEDS: Cefepime 2 GM in Dextrose(*) 2 GM/50 ML BAG IV SCH ×2 (02:42→15:30)
[2018-03-09] MEDS: oxyCODONE TAB* 5 MG TAB PO PRN ×3 (04:35→20:51)
[2018-03-09 05:45] LABS: ABS Basophils 0 10^3/ul (0-0.2); ABS Eosinophils 0 10^3/ul (0-0.6); ABS Lymphocytes 0.4 10^3/ul (1.0-4.8); ABS Monocytes 0.5 10^3/ul (0-0.8); ABS Neutrophils 14.2 10^3/ul (1.5-7.7); ABS Nucleated RBC 0 10^3/ul; Eosinophil % 0.1 %; Hematocrit 23 % (35-47); Hemoglobin 7.7 g/dl (12.0-16.0); Lymphocyte % 2.5 %; Mean Corpuscular HGB Conc 33 g/dl (31-36); Mean Corpuscular Hemoglobin 32 pg (27-31); Mean Corpuscular Volume 97 fL (80-97); Nucleated Red Blood Cells % 0.3; Platelet Count 119 10^3/ul (150-450); Red Cell Distribution Width 24 % (10.5-15); White Blood Count 15.1 10^3/ul (3.5-10.8)
[2018-03-09] MEDS: fentaNYL Patch Check Q Shift 1 NOTE SCH ×2 (06:42→19:07)
[2018-03-09] MEDS: Tiotropium CAP.INH* CAP.INH/18 MCG (USE ORDER SET !) INH SCH ×2 (07:24→11:52)
[2018-03-09] MEDS: Mometasone/Formoter 200/5 MDI INH SCH ×2 (07:25→19:48)
[2018-03-09] MEDS ORDERED: Dexamethasone TAB* 1 MG PO SCH (09:00)
[2018-03-09] MEDS: Atorvastatin* 40 MG TAB PO SCH (09:23)
[2018-03-09] MEDS: Diltiazem CD CAP* 180 MG PO SCH (09:23)
[2018-03-09] MEDS: Omeprazole CAP* 20 MG PO SCH (09:23)
[2018-03-09] MEDS: Benzonatate CAP* 100 MG PO SCH ×3 (09:23→20:52)
[2018-03-09] MEDS: Magnesium Oxide TAB* 400 MG PO SCH ×2 (09:23→20:52)
[2018-03-09] MEDS: Cholecalciferol TAB* 1000 UNITS PO SCH (09:24)
[2018-03-09] MEDS: Linezolid TAB* 600 MG PO SCH ×2 (09:24→22:32)
[2018-03-09] MEDS: guaiFENesin ER TAB 600 MG PO SCH ×2 (09:24→20:51)
[2018-03-09] MEDS: Potassium Chlor TAB* 20 MEQ TAB.ER PO SCH (09:24)
[2018-03-09] MEDS: CMCS: Calcitonin NASAL(NF) 200 UNITS/SPRAY NASAL.SPR ALT NARE SCH (09:25)
[2018-03-09] MEDS: Morphine VIAL* 4 MG/ML VIAL (1 ml vial) IV PRN (09:25)
[2018-03-09] MEDS: predniSONE TAB* 20 MG PO SCH (09:25)
[2018-03-09] MEDS: Lidocaine PATCH 5%* 1 PATCH TRANSDERM SCH (09:31)
[2018-03-09] MEDS: fentaNYL PATCH 25 MCG/HR TRANSDERM SCH (09:35)
[2018-03-09] MEDS: Rivaroxaban TAB(*) 20 MG TAB PO SCH (18:04)
[2018-03-09] MEDS: Tamsulosin CAP* 0.4 MG PO SCH (20:51)
[2018-03-09] MEDS: Lidocaine Patch REMOVE* 1 NOTE MISC PATCH OFF SCH (20:56)
[2018-03-10] MEDS: Cefepime 2 GM in Dextrose(*) 2 GM/50 ML BAG IV SCH ×2 (02:36→15:30)
[2018-03-10] MEDS: fentaNYL Patch Check Q Shift 1 NOTE SCH ×2 (06:50→19:54)
[2018-03-10] MEDS: Mometasone/Formoter 200/5 MDI INH SCH ×2 (08:00→19:42)
[2018-03-10] MEDS: Tiotropium CAP.INH* CAP.INH/18 MCG (USE ORDER SET !) INH SCH ×2 (08:00→12:37)
--- NOTE | 2018-03-10 09:22 | PN ---
Progress Note - Progress Note Date of Service: 03/10/18 SOAP: Subjective: []Feeling OK. Still has a lot of pain. Some improvement with Fentanyl, though still needing PRN meds. Having regular BMs. Has been getting up to chair, though limited ambulation as TLSO was difficult to fit. Agreeable with plan to go to rehab. Medications: Acetaminophen (Tylenol Tab*) 650 mg PO Q4H PRN PRN Reason: pain/fever Albuterol (Ventolin Hfa Inhaler*) 2 puff INH Q4H PRN PRN Reason: SOB/WHEEZING Albuterol/Ipratropium (Duoneb (Albuterol 2.5 Mg/Ipratropium 0.5 Mg)) 1 neb INH Q4H PRN PRN Reason: SOB/WHEEZING Last Admin: 03/07/18 07:48 Dose: 1 neb Atorvastatin Calcium (Lipitor*) 40 mg PO QAM [facility] Last Admin: 03/09/18 09:23 Dose: 40 mg Benzonatate (Tessalon Cap*) 200 mg PO TID [facility] Last Admin: 03/09/18 20:52 Dose: 200 mg Calcitonin [place] (Fortical(Nr)) 200 units ALT NARE DAILY [facility]; Protocol Last Admin: 03/09/18 09:25 Dose: 200 units Cholecalciferol (Vitamin D Tab*) 1,000 units PO QAM [facility] Last Admin: 03/09/18 09:24 Dose: 1,000 units Diltiazem HCl (Cardizem Cd Cap*) 360 mg PO QAM [facility] Last Admin: 03/09/18 09:23 Dose: 360 mg Docusate Sodium (Colace Cap*) 100 mg PO BID PRN PRN Reason: CONSTIPATION Last Admin: 03/06/18 09:06 Dose: 100 mg Fentanyl (Duragesic Patch 25 Mcg/Hr*) 25 mcg TRANSDERM Q72H [facility] Last Admin: 03/09/18 09:35 Dose: 25 mcg Guaifenesin (Mucinex*) 600 mg PO BID [facility] Last Admin: 03/09/18 20:51 Dose: 600 mg Heparin Sodium (Porcine) (Heparin Flush Port (Ivad)) 5 ml FLUSH DAILY [facility]; Protocol Last Admin: 03/09/18 16:28 Dose: 5 ml Cefepime HCl (Maxipime 2 Gm In Dextrose Duplex (*)) 2 gm in 50 mls @ 100 mls/ hr IV Q12H [facility] Last Admin: 03/10/18 02:36 Dose: 100 mls/hr Lactulose (Lactulose*) 30 ml PO TID [facility] Last Admin: 03/09/18 20:51 Dose: Not Given Lidocaine (Lidoderm 5% Patch*) 1 patch TRANSDERM DAILY [facility] Last Admin: 03/09/18 09:31 Dose: 1 patch Linezolid (Zyvox Tab*) 600 mg PO Q12H [facility] Last Admin: 03/09/18 22:32 Dose: 600 mg Loperamide HCl (Imodium Cap*) 2 mg PO .SEE DIRECTIONS PRN PRN Reason: DIARRHEA Magnesium Oxide (Magox 400 Tab*) 800 mg PO BID [facility] Last Admin: 03/09/18 20:52 Dose: 800 mg Mometasone Furoate (Asmanex 220 Mcg Mdi *) 1 puff INH BID PRN; Protocol PRN Reason: SHORTNESS OF BREATH Mometasone Furoate/Formoterol Fumar (Dulera 200/5 Mdi*) 2 puff INH BID [facility]; Protocol Last Admin: 03/10/18 08:00 Dose: 2 puff Montelukast Sodium (Singulair Tab*) 10 mg PO DAILY PRN PRN Reason: Allergy Symptoms Morphine Sulfate (Morphine Vial*) 1 mg IV Q1H PRN PRN Reason: PAIN - SEVERE Last Admin: 03/09/18 09:25 Dose: 1 mg Omeprazole (Prilosec Cap*) 20 mg PO DAILY@0730 [facility] Last Admin: 03/09/18 09:23 Dose: 20 mg Oxycodone HCl (Roxycodone Tab*) 5 mg PO Q6H PRN PRN Reason: PAIN Last Admin: 03/09/18 20:51 Dose: 5 mg Pharmacy Profile Note (Lidocaine Patch Remove*) 1 note PATCH OFF 2100 [facility] Last Admin: 03/09/18 20:56 Dose: 1 note Pharmacy Profile Note (Fentanyl Patch Check Q Shift) 1 note N/A 0700,1900 [facility] Last Admin: 03/10/18 06:50 Dose: 1 note Polyethylene Glycol/Electrolytes (Miralax*) 17 gm PO DAILY PRN PRN Reason: CONSTIPATION Last Admin: 03/06/18 09:07 Dose: 17 gm Potassium Chloride (Klor Con Er Tab*) 20 meq PO DAILY [facility] Last Admin: 03/09/18 09:24 Dose: 20 meq Prednisone (Deltasone Tab*) 20 mg PO DAILY [facility] Last Admin: 03/09/18 09:25 Dose: 20 mg Rivaroxaban (Xarelto(*)) 20 mg PO QPM [facility] Last Admin: 03/09/18 18:04 Dose: 20 mg Senna (Senokot Tab*) 1 tab PO BEDTIME PRN PRN Reason: CONSTIPATION Last Admin: 03/04/18 20:50 Dose: 1 tab Tamsulosin HCl (Flomax Cap*) 0.4 mg PO BEDTIME [facility] Last Admin: 03/09/18 20:51 Dose: 0.4 mg Tiotropium [place] (Spiriva Cap.Inh*) 1 cap INH 1230 [facility] Last Admin: 03/10/18 08:00 Dose: 1 cap Objective: [] Vital Signs Temp Pulse Resp BP Pulse Ox 97.3 F 84 19 148/68 97 03/10/18 02:59 03/10/18 08:44 03/10/18 08:44 03/10/18 08:44 03/10/18 08:44 A&Ox3, EOMI, neuro grossly non-focal HRR, S1S2 LS with scatter wheeze to right, left clear +BS, abd. soft and round Obese KIM Microbiology 03/03/18 04:00 Aerobic Blood Culture - Final Blood Venous No Growth Day 5 Anaerobic Blood Culture - Final No Growth Day 5 03/03/18 04:00 Aerobic Blood Culture - Final Blood Line No Growth Day 5 Anaerobic Blood Culture - Final No Growth Day 5 03/02/18 06:10 Aerobic Blood Culture - Final Blood Venous No Growth Day 5 Anaerobic Blood Culture - Final No Growth Day 5 03/02/18 18:45 Gram Stain - Final Sputum Expectorated Sputum Culture - Final Pseudomonas Aeruginosa 03/01/18 13:08 Urine Culture - Final Urine Vre Enterococcus Faecium 03/01/18 03:00 Legionella Urinary Antigen - Final Urine Negative Legionella Antigen Streptococcus pneumoniae Ag Screen - Final Negative S. pneumo Antigen Assessment: []72 yo female with history of SCLC s/p definitive therapy (C5D1 Carbo/ Etoposide 01/29) admitted with RLL pneumonia and new L1 compression fracture. Course complicated by urinary retention. Plan: []1. PNA 2/2 Pseudomonas: Cefepime, IV Day 6 today - plan to d/c tomorrow 2. Urinary retention: has been on flomax - linezolid started 03/08 due to concern for infectious process with VRE ( versus colonization), plan 3 days abx per ID rec. - potentially exacerbated by narcotics, CT negative for pelvic mass - repeat UA today from [facility] - US pelvis/bladder to eval. for cystocele d/t hx. partial hysterectomy and may need outpatient referral to [facility] pediatric or urology 3. Compression fx.: TLSO brace recommended by neurosurgery - Fentanyl started 03/03 with increase 03/06, suspect she'll need increase, though I would like to be very cautious about escalation - avoid morphine d/t retention risk 4. SCLC: stable on imaging, will need outpatient PET in near future Dispo: d/c to [facility] tomorrow 03/11
[2018-03-10] MEDS: Diltiazem CD CAP* 180 MG PO SCH (09:29)
[2018-03-10] MEDS: Atorvastatin* 40 MG TAB PO SCH (09:30)
[2018-03-10] MEDS: predniSONE TAB* 20 MG PO SCH (09:30)
[2018-03-10] MEDS: Cholecalciferol TAB* 1000 UNITS PO SCH (09:30)
[2018-03-10] MEDS: Potassium Chlor TAB* 20 MEQ TAB.ER PO SCH (09:30)
[2018-03-10] MEDS: Magnesium Oxide TAB* 400 MG PO SCH ×2 (09:30→21:34)
[2018-03-10] MEDS: Benzonatate CAP* 100 MG PO SCH ×3 (09:30→21:33)
[2018-03-10] MEDS: Omeprazole CAP* 20 MG PO SCH (09:30)
[2018-03-10] MEDS: Linezolid TAB* 600 MG PO SCH ×2 (09:30→21:34)
[2018-03-10] MEDS: guaiFENesin ER TAB 600 MG PO SCH ×2 (09:32→21:34)
[2018-03-10] MEDS: oxyCODONE TAB* 5 MG TAB PO PRN ×2 (09:34→18:06)
[2018-03-10] MEDS: CMCS: Calcitonin NASAL(NF) 200 UNITS/SPRAY NASAL.SPR ALT NARE SCH (09:35)
[2018-03-10] MEDS: Lidocaine PATCH 5%* 1 PATCH TRANSDERM SCH (09:36)
[2018-03-10 12:46] LABS: Urine Appearance Cloudy; Urine Bacteria Absent (Absent); Urine Bilirubin Negative (Negative); Urine Blood 1+ (Negative); Urine Color Yellow; Urine Glucose Negative (Negative); Urine Ketones Negative (Negative); Urine Nitrite Negative (Negative); Urine Protein Negative (Negative); Urine Red Blood Cell 2+(6-10/hpf) (Absent); Urine Specific Gravity 1.015 (1.010-1.030); Urine Urobilinogen Negative (Negative); Urine White Blood Cell 3+(>20/hpf) (Absent)
[2018-03-10] MEDS: Morphine VIAL* 4 MG/ML VIAL (1 ml vial) IV PRN ×2 (12:52→21:34)
[2018-03-10] MEDS: Rivaroxaban TAB(*) 20 MG TAB PO SCH (18:02)
[2018-03-10] MEDS: Tamsulosin CAP* 0.4 MG PO SCH (21:34)
[2018-03-10] MEDS: Lidocaine Patch REMOVE* 1 NOTE MISC PATCH OFF SCH (21:34)
[2018-03-11] MEDS: Morphine VIAL* 4 MG/ML VIAL (1 ml vial) IV PRN ×3 (02:47→21:53)
[2018-03-11] MEDS: Cefepime 2 GM in Dextrose(*) 2 GM/50 ML BAG IV SCH (02:47)
[2018-03-11] MEDS: Omeprazole CAP* 20 MG PO SCH (07:27)
[2018-03-11] MEDS: fentaNYL Patch Check Q Shift 1 NOTE SCH ×2 (07:38→18:47)
[2018-03-11] MEDS: Tiotropium CAP.INH* CAP.INH/18 MCG (USE ORDER SET !) INH SCH ×2 (08:13→08:48)
[2018-03-11] MEDS: Mometasone/Formoter 200/5 MDI INH SCH ×2 (08:17→20:04)
[2018-03-11] MEDS: oxyCODONE TAB* 5 MG TAB PO PRN (09:24)
[2018-03-11] MEDS: Lidocaine PATCH 5%* 1 PATCH TRANSDERM SCH (09:36)
[2018-03-11] MEDS: Benzonatate CAP* 100 MG PO SCH ×3 (09:36→21:52)
[2018-03-11] MEDS: Atorvastatin* 40 MG TAB PO SCH (09:36)
[2018-03-11] MEDS: Magnesium Oxide TAB* 400 MG PO SCH ×2 (09:37→21:53)
[2018-03-11] MEDS: Diltiazem CD CAP* 180 MG PO SCH (09:37)
[2018-03-11] MEDS: predniSONE TAB* 20 MG PO SCH (09:37)
[2018-03-11] MEDS: Potassium Chlor TAB* 20 MEQ TAB.ER PO SCH (09:37)
[2018-03-11] MEDS: guaiFENesin ER TAB 600 MG PO SCH ×2 (09:37→21:53)
[2018-03-11] MEDS: Cholecalciferol TAB* 1000 UNITS PO SCH (09:37)
[2018-03-11] MEDS: CMCS: Calcitonin NASAL(NF) 200 UNITS/SPRAY NASAL.SPR ALT NARE SCH (09:37)
--- NOTE | 2018-03-11 11:03 | PN ---
Progress Note - Progress Note Date of Service: 03/11/18 SOAP: Subjective: [Feeling pretty good today. Participating with PT. Pain still 6-7/10 at rest. Respiratory symptoms are ok, no significant dyspnea and better than yesterday. ] Objective: [ Vital Signs: Temp Pulse Resp BP Pulse Ox 97.2 F 78 18 120/60 94 03/11/18 02:46 03/11/18 02:46 03/11/18 09:24 03/11/18 02:46 03/11/18 02:46 Laboratory Results - last 24 hr 03/10/18 12:00 Urine Color Yellow Urine Appearance Cloudy Urine pH 7.0 Ur Specific [place] 1.015 Urine Protein Negative Urine Ketones Negative Urine Blood 1+ A Urine Nitrate Negative Urine Bilirubin Negative Urine Urobilinogen Negative Ur Leukocyte Esterase Trace A Urine WBC (Auto) 3+(>20/hpf) A Urine RBC (Auto) 2+(6-10/hpf) A Ur Squamous Epith Cells Present A Urine Bacteria Absent Urine Glucose Negative Acetaminophen (Tylenol Tab*) 650 mg PO Q4H PRN PRN Reason: pain/fever Albuterol (Ventolin Hfa Inhaler*) 2 puff INH Q4H PRN PRN Reason: SOB/WHEEZING Last Admin: 03/11/18 08:13 Dose: 2 puff Albuterol/Ipratropium (Duoneb (Albuterol 2.5 Mg/Ipratropium 0.5 Mg)) 1 neb INH Q4H PRN PRN Reason: SOB/WHEEZING Last Admin: 03/07/18 07:48 Dose: 1 neb Atorvastatin Calcium (Lipitor*) 40 mg PO QAM [facility] Last Admin: 03/11/18 09:36 Dose: 40 mg Benzonatate (Tessalon Cap*) 200 mg PO TID [facility] Last Admin: 03/11/18 09:36 Dose: 200 mg Calcitonin [place] (Fortical(Nr)) 200 units ALT NARE DAILY [facility]; Protocol Last Admin: 03/11/18 09:37 Dose: 200 units Cholecalciferol (Vitamin D Tab*) 1,000 units PO QAM [facility] Last Admin: 03/11/18 09:37 Dose: 1,000 units Diltiazem HCl (Cardizem Cd Cap*) 360 mg PO QAM [facility] Last Admin: 03/11/18 09:37 Dose: 360 mg Docusate Sodium (Colace Cap*) 100 mg PO BID PRN PRN Reason: CONSTIPATION Last Admin: 03/06/18 09:06 Dose: 100 mg Fentanyl (Duragesic Patch 25 Mcg/Hr*) 25 mcg TRANSDERM Q72H [facility] Last Admin: 03/09/18 09:35 Dose: 25 mcg Guaifenesin (Mucinex*) 600 mg PO BID [facility] Last Admin: 03/11/18 09:37 Dose: 600 mg Heparin Sodium (Porcine) (Heparin Flush Port (Ivad)) 5 ml FLUSH DAILY [facility]; Protocol Last Admin: 03/11/18 09:38 Dose: 5 ml Cefepime HCl (Maxipime 2 Gm In Dextrose Duplex (*)) 2 gm in 50 mls @ 100 mls/ hr IV Q12H [facility] Last Admin: 03/11/18 02:47 Dose: 100 mls/hr Lactulose (Lactulose*) 30 ml PO TID [facility] Last Admin: 03/11/18 09:59 Dose: Not Given Lidocaine (Lidoderm 5% Patch*) 1 patch TRANSDERM DAILY [facility] Last Admin: 03/11/18 09:36 Dose: 1 patch Linezolid (Zyvox Tab*) 600 mg PO Q12H [facility] Last Admin: 03/10/18 21:34 Dose: 600 mg Loperamide HCl (Imodium Cap*) 2 mg PO .SEE DIRECTIONS PRN PRN Reason: DIARRHEA Magnesium Oxide (Magox 400 Tab*) 800 mg PO BID [facility] Last Admin: 03/11/18 09:37 Dose: 800 mg Mometasone Furoate (Asmanex 220 Mcg Mdi *) 1 puff INH BID [facility]; Protocol PRN Reason: SHORTNESS OF BREATH Mometasone Furoate/Formoterol Fumar (Dulera 200/5 Mdi*) 2 puff INH BID [facility]; Protocol Last Admin: 03/11/18 08:17 Dose: 2 puff Montelukast Sodium (Singulair Tab*) 10 mg PO DAILY PRN PRN Reason: Allergy Symptoms Morphine Sulfate (Morphine Vial*) 1 mg IV Q1H PRN PRN Reason: PAIN - SEVERE Last Admin: 03/11/18 02:47 Dose: 1 mg Omeprazole (Prilosec Cap*) 20 mg PO DAILY@0730 [facility] Last Admin: 03/11/18 07:27 Dose: 20 mg Oxycodone HCl (Roxycodone Tab*) 5 mg PO Q6H PRN PRN Reason: PAIN Last Admin: 03/11/18 09:24 Dose: 5 mg Pharmacy Profile Note (Lidocaine Patch Remove*) 1 note PATCH OFF 2100 [facility] Last Admin: 03/10/18 21:34 Dose: 1 note Pharmacy Profile Note (Fentanyl Patch Check Q Shift) 1 note N/A 0700,1900 [facility] Last Admin: 03/11/18 07:38 Dose: 1 note Polyethylene Glycol/Electrolytes (Miralax*) 17 gm PO DAILY PRN PRN Reason: CONSTIPATION Last Admin: 03/06/18 09:07 Dose: 17 gm Potassium Chloride (Klor Con Er Tab*) 20 meq PO DAILY [facility] Last Admin: 03/11/18 09:37 Dose: 20 meq Prednisone (Deltasone Tab*) 20 mg PO DAILY [facility] Last Admin: 03/11/18 09:37 Dose: 20 mg Rivaroxaban (Xarelto(*)) 20 mg PO QPM [facility] Last Admin: 03/10/18 18:02 Dose: 20 mg Senna (Senokot Tab*) 1 tab PO BEDTIME PRN PRN Reason: CONSTIPATION Last Admin: 03/04/18 20:50 Dose: 1 tab Tamsulosin HCl (Flomax Cap*) 0.4 mg PO BEDTIME [facility] Last Admin: 03/10/18 21:34 Dose: 0.4 mg Tiotropium [place] (Spiriva Cap.Inh*) 1 cap INH 0900 [facility] Last Admin: 03/11/18 08:48 Dose: Not Given Exam: Gen: 72 yo female who appears chronically ill but in NAD. Sitting up in a chair at bedside with brace in place HEENT: MMM CV: RRR, no m/r/g Resp: reduced breath sounds, but no w/c/r Abd: soft, nonTTP Ext: trace LE edema] Assessment: 72 yo female with history of SCLC s/p definitive therapy (C5D1 Carbo/Etoposide 01/29) admitted with RLL pneumonia and new L1 compression fracture. Course complicated by urinary retention. Plan: 1. PNA 2/2 Pseudomonas: Cefepime, IV Day 7 today - stop Cefepime after today's dose 2. Urinary retention: has been on flomax - linezolid started 03/08 due to concern for infectious process with VRE ( versus colonization), plan 3 days abx per ID rec. - potentially exacerbated by narcotics, CT negative for pelvic mass, no retropulsion of compression fracture - will repeat a voiding trial today - will need to follow up with urology as an outpatient 3. Compression fx.: TLSO brace recommended by neurosurgery - increase fentanyl patch today - cont calcitonin nasal spray and lidocaine patch 4. SCLC: stable on imaging, will need outpatient PET in near future 5. COPD: severe - no acute exacerbation - cont 20 mg prednisone daily Dispo: d/c to [facility] when approved by insurance]
[2018-03-11] MEDS: Linezolid TAB* 600 MG PO SCH (11:41)
[2018-03-11] MEDS ORDERED: fentaNYL PATCH 37.5 MCG/HR(NF) PATCH.TD72 TRANSDERM SCH (12:00)
[2018-03-11] MEDS ORDERED: fentaNYL PATCH 12 MCG/HR TRANSDERM SCH (12:00)
[2018-03-11] MEDS ORDERED: fentaNYL PATCH 25 MCG/HR TRANSDERM SCH (12:00)
[2018-03-11] MEDS: Rivaroxaban TAB(*) 20 MG TAB PO SCH (18:18)
[2018-03-11] MEDS: Tamsulosin CAP* 0.4 MG PO SCH (21:52)
[2018-03-11] MEDS: Lidocaine Patch REMOVE* 1 NOTE MISC PATCH OFF SCH (21:54)
[2018-03-12] MEDS: Morphine VIAL* 4 MG/ML VIAL (1 ml vial) IV PRN ×3 (05:07→13:32)
[2018-03-12 05:14] LABS: ABS Basophils 0 10^3/ul (0-0.2); ABS Eosinophils 0 10^3/ul (0-0.6); ABS Lymphocytes 0.6 10^3/ul (1.0-4.8); ABS Monocytes 0.6 10^3/ul (0-0.8); ABS Nucleated RBC 0 10^3/ul; Eosinophil % 0.1 %; Hematocrit 24 % (35-47); Hemoglobin 8.1 g/dl (12.0-16.0); Lymphocyte % 5.9 %; Mean Corpuscular HGB Conc 34 g/dl (31-36); Mean Corpuscular Hemoglobin 33 pg (27-31); Mean Corpuscular Volume 97 fL (80-97); Nucleated Red Blood Cells % 0.2; Platelet Count 124 10^3/ul (150-450); Red Blood Count 2.47 10^6/ul (4.00-5.40); Red Cell Distribution Width 23 % (10.5-15); White Blood Count 10.3 10^3/ul (3.5-10.8)
[2018-03-12 05:26] LABS: Albumin/Globulin Ratio 1.2 (1-3); Calcium 9.4 mg/dL (8.6-10.3); EGFR Non-African American 121.6 (>60); Globulin 2.6 g/dL (2-4); Potassium 4.4 mmol/L (3.5-5.0); Total Bilirubin 0.4 mg/dL (0.2-1.0); Total Protein 5.6 g/dL (6.4-8.9)
[2018-03-12] MEDS: fentaNYL Patch Check Q Shift 1 NOTE SCH (07:09)
[2018-03-12] MEDS: Mometasone/Formoter 200/5 MDI INH SCH (08:43)
[2018-03-12] MEDS: Tiotropium CAP.INH* CAP.INH/18 MCG (USE ORDER SET !) INH SCH (08:44)
[2018-03-12] MEDS: oxyCODONE TAB* 5 MG TAB PO PRN (09:22)
[2018-03-12] MEDS: Omeprazole CAP* 20 MG PO SCH (09:34)
[2018-03-12] MEDS: guaiFENesin ER TAB 600 MG PO SCH (09:35)
[2018-03-12] MEDS: Atorvastatin* 40 MG TAB PO SCH (09:35)
[2018-03-12] MEDS: Magnesium Oxide TAB* 400 MG PO SCH (09:35)
[2018-03-12] MEDS: Benzonatate CAP* 100 MG PO SCH ×2 (09:36→13:31)
[2018-03-12] MEDS: Cholecalciferol TAB* 1000 UNITS PO SCH (09:36)
[2018-03-12] MEDS: Diltiazem CD CAP* 180 MG PO SCH (09:36)
[2018-03-12] MEDS: CMCS: Calcitonin NASAL(NF) 200 UNITS/SPRAY NASAL.SPR ALT NARE SCH (09:38)
[2018-03-12] MEDS: Lidocaine PATCH 5%* 1 PATCH TRANSDERM SCH (09:40)
[2018-03-12] MEDS: predniSONE TAB* 20 MG PO SCH (09:45)
[2018-03-12] MEDS: Potassium Chlor TAB* 20 MEQ TAB.ER PO SCH (09:45)
[2018-03-12 11:29] VITALS: BP 138/59
--- NOTE | 2018-03-12 12:02 | DS ---
CC: Dr. Lorelei Pickett; Dr. Martinez; Dr. Calvillo; Dr. Lopez * DATE OF ADMISSION: 03/01/2018. DATE OF DISCHARGE: 03/12/2018. PRIMARY CARE PHYSICIAN: Dr. Lorelei Pickett. PRIMARY ONCOLOGIST: Dr. Martinez. CONSULTING NEUROSURGEON: Dr. Lopez. CONSULTING INFECTIOUS DISEASE SPECIALIST: Dr. Olson. CONSULTING UROLOGIST: Dr. Calvillo. ATTENDING PHYSICIAN: Dr. Paula * (dictated by JOLLY Varma). DISCHARGING PROVIDER: JOLLY Varma. PRIMARY DISCHARGE DIAGNOSES: 1. Compression fracture at L1 with recommendations from Neurosurgery for TLSO brace with activity. 2. Pseudomonal pneumonia, status post seven days of Cefepime, no further antibiotics. 3. Urinary retention - Mckeon catheter in place at the time of discharge. 4. Small cell lung carcinoma, status post concurrent chemo and radiation with follow-up PET scan anticipated in the next couple of weeks. 5. Severe COPD, oxygen and steroid dependent without acute exacerbation during this hospitalization. DISCHARGE MEDICATIONS: 1. Albuterol one to two puffs inhaled q.4 hours as needed for shortness of breath. 2. Lipitor 40 mg p.o. daily. 3. Symbicort one puff inhaled twice daily. 4. Vitamin D 1,000 units p.o. daily. 5. Diltiazem 360 mg p.o. daily. 6. Lasix 20 mg p.o. daily. 7. Singulair 10 mg p.o. daily. 8. Xarelto 20 mg p.o. daily. 9. Spiriva one capsule inhaled daily. 10. Acetaminophen 650 mg p.o. q.4 hours as needed for pain or fever. 11. DuoNebs one neb inhaled q.4 hours as needed for shortness of breath. 12. Calcitonin nasal spray 200 units intranasal alternating nostrils daily through April 11. 13. Docusate 100 mg p.o. twice daily. 14. Fentanyl patch 37 mcg apply topically every 72 hours. 15. Lactulose 30 ml p.o. 3 times daily as needed for constipation. 16. Lidoderm patch 5% applied transdermally once daily. 17. Imodium 2 mg p.o. as needed for diarrhea. 18. Magnesium Oxide 400 mg p.o. twice daily. 19. Omeprazole 20 mg p.o. daily. 20. Oxycodone 5 mg p.o. q.6 hours as needed for pain. 21. MiraLax 17 gm p.o. daily as needed for constipation. 22. Potassium Chloride 20 mEq p.o. daily. 23. Prednisone 20 mg p.o. daily. 24. Flomax 0.4 mg p.o. at bedtime. MEDICATION CHANGES: 1. Calcitonin nasal spray for 4 weeks. 2. Start Fentanyl patch. HOSPITAL IMAGIN. CT chest/abdomen/pelvis, 02/28/2018, demonstrates right lower lobe airspace opacity representing either pneumonia or hemorrhage. Small associated pleural effusion. Right lung nodules and mediastinal adenopathy noted and appears stable. L1 compression fracture with mild narrowing of the spinal canal, not present on other recent imaging. 2. Bladder ultrasound, 03/10/2018: Normal sonogram of the urinary bladder with a Mckeon catheter in place. No cystocele. HOSPITAL COURSE: This is a 72-year-old female with small cell lung cancer who has now completed concurrent chemotherapy and radiation. She had multiple complications during treatment, mostly exacerbations of her COPD and pneumonia resulting in prior hospitalizations. She was admitted after sustaining a fall at home with complaints of back pain. She was found to have a new L1 compression fracture at the time of admission. Subsequently, she was diagnosed with a pneumonia by imaging with complaints of cough and leukocytosis. The patient's sputum grew pseudomonas and she was appropriately treated with Cefepime and completed a total of seven days of therapy. Following completion of the antibiotics, she has had no recurrence of cough or fever. Urine culture grew VRE which was initially thought to potentially be a contaminate, but was eventually treated with three days of Linezolid as she was having urinary retention to see if acute cystitis may be contributing to the retention, although she was otherwise asymptomatic. The patient was seen by a neurosurgeon regarding the compression fracture and recommendations were for a TLSO brace which was eventually fitted for her and she seems to be tolerating it well. She has been participating in physical therapy, but activity is still quite limited. For pain control, she has a Fentanyl patch in place, started on Calcitonin nasal spray, and using prn Oxycodone. The patient experienced urinary retention during this hospitalization with multiple voiding trials, all of which failed. As mentioned above, she had VRE growing on urine culture which was treated with three days of oral Linezolid without improvement in her retention. She has had prior retention which resolved after initiating Flomax and has previously been seen by Dr. Calvillo for other concerns, but unfortunately was unable to follow-up with him between her hospitalizations. DISPOSITION AND FOLLOW-UP PLAN: The patient is being discharged to [facility] for subacute rehab. She will continue to work with Physical Therapy. Follow-up is scheduled with Dr. Martinez on the 26 of March with an outpatient PET scan prior to that to re-evaluate the status of her small cell lung cancer post therapy. She requires follow-up with Dr. Calvillo on an outpatient basis and his office will be contacting her with an appointment. She also requires follow -up with Dr. Lopez regarding her compression fracture and an appointment has been made on her behalf with him for the end of March. The patient would benefit from a DEXA scan and subsequent Bisphosphonate therapy as an outpatient , but will continue Calcitonin for a total of four weeks. JOLLY VARMA [id number]/[facility] #: [id number] CR
== END 2018-03-12 14:45 | DRG 551 ==
LOC: ED 20:27 → MED 03-01 00:21
PROVIDERS: ADMIT Internal Medicine; ATTEND Internal Medicine Hematology & Oncology
PROC: 5A09357 Assistance with Respiratory Ventilation, Less than 24 Consecutive Hours, Continuous Positive Airway Pressure (ICD-10-PCS; principal; 2018-03-01)
PROC: 30233N1 Transfusion of Nonautologous Red Blood Cells into Peripheral Vein, Percutaneous Approach (ICD-10-PCS; 2018-03-03)
PROC: 0T9B70Z Drainage of Bladder with Drainage Device, Via Natural or Artificial Opening (ICD-10-PCS; 2018-03-04)
PROC: 2W35X3Z Immobilization of Back using Brace (ICD-10-PCS; 2018-03-04)
DX: S32.019A Unspecified fracture of first lumbar vertebra, initial encounter for closed fracture (principal); J15.1 Pneumonia due to Pseudomonas; C34.90 Malignant neoplasm of unspecified part of unspecified bronchus or lung; Z68.41 Body mass index [BMI] 40.0-44.9, adult; Z68.42 Body mass index [BMI] 45.0-49.9, adult; J44.0 Chronic obstructive pulmonary disease with (acute) lower respiratory infection; M84.48XA Pathological fracture, other site, initial encounter for fracture; J90 Pleural effusion, not elsewhere classified; N30.00 Acute cystitis without hematuria; W18.11XA Fall from or off toilet without subsequent striking against object, initial encounter; I48.91 Unspecified atrial fibrillation; E78.5 Hyperlipidemia, unspecified; E66.01 Morbid (severe) obesity due to excess calories; Z96.0 Presence of urogenital implants; I11.0 Hypertensive heart disease with heart failure; I50.9 Heart failure, unspecified; M19.90 Unspecified osteoarthritis, unspecified site; R59.0 Localized enlarged lymph nodes; G47.33 Obstructive sleep apnea (adult) (pediatric); D63.8 Anemia in other chronic diseases classified elsewhere; R33.9 Retention of urine, unspecified; E87.6 Hypokalemia; K59.00 Constipation, unspecified; Z98.41 Cataract extraction status, right eye; Y92.002 Bathroom of unspecified non-institutional (private) residence as the place of occurrence of the external cause; Z88.5 Allergy status to narcotic agent; Z87.442 Personal history of urinary calculi; Z88.2 Allergy status to sulfonamides; Z91.012 Allergy to eggs; Z88.1 Allergy status to other antibiotic agents; Z83.3 Family history of diabetes mellitus; Z82.5 Family history of asthma and other chronic lower respiratory diseases; Z98.42 Cataract extraction status, left eye; Z99.81 Dependence on supplemental oxygen; Z79.01 Long term (current) use of anticoagulants; Z79.52 Long term (current) use of systemic steroids
CPT/HCPCS: 36415; 71250; 74176; 76857; 80048; 80053; 81003; 81015; 82306; 83735; 85025; 85610; 86850; 86900; 86901; 86922; 87040; 87070; 87077; 87086; 87186; 87205; 87899; 94640; 94660; 99232; 99233; 99239; 99283; A9270-GY; G8978-GP-CL; G8979-GP-CI; G8987-GO-CL; G8988-GO-CI; J0456; J0692; J0696; J1642; J1940; J2270; J7512; P9040

== ENCOUNTER 2018-03-26 09:18 | Inpatient (IN) | payer MEDICARE, OTHER ==
[2018-03-26] MEDS ORDERED: Albuterol/Ipratropium NEB.SOL* Albuterol 2.5 MG/Ipratropium 0.5 MG 3 ML INH ONE (09:23)
[2018-03-26] MEDS ORDERED: Dexamethasone IV* 4 MG/ML 1 ML (4 MG) IV SLOW PU ONE (09:23)
[2018-03-26] MEDS ORDERED: cefTRIAXone(*) 1 GM in NS 0.9% 50 ML* 50 ML IVPB ONE (09:26)
[2018-03-26] MEDS ORDERED: Azithromycin IV(*) 500 MG in NS 0.9% 250 ML* 250 ML IVPB ONE (09:26)
[2018-03-26] MEDS ORDERED: NS 0.9% 1000 ML* 2,000 ML IV ONE (09:27)
--- NOTE | 2018-03-26 09:30 | ED ---
Shortness of Breath - HPI Summary HPI Summary: This pt is a 72 y/o female presenting to [facility] via EMS from [facility] for SOB. Pt reports she has had a nonproductive cough for a couple of weeks now. Per EMS pt was saturating in the 70s%. EMS states upon their arrival pt was in respiratory distress on 5L of O2 NC. Pt's oxygen saturation increased to the 90s % on a non-rebreather mask. Per EMS, pt had a nebulizer treatment at 08:30 today with little relief. EMS reports that per the staff at [facility] pt had a lot of medications in the beginning of the week. Pt states she was nauseous earlier today. Currently denies chest pain, nausea, vomiting, fever. Pt uses 2L of O2 in [facility] at baseline. She additionally reports she has not had her arredondo catheter changed. 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 She is on anticoagulants, Xarelto. Denies hx of PE, DVT, or MO. Pt states her last chemo was a while ago and is no longer on it since she was not responding to it. - History of Current Complaint Hx Obtained From: Patient, EMS Onset/Duration: Lasting Days, Still Present, Worse Since - today Timing: Constant Current Severity: Severe Dyspnea At: Rest Aggrevating Factors: Nothing Alleviating Factors: EMS Tx, Oxygen Associated Signs & Symptoms: Cough (Nonproductive) - Allergy/Home Medications Allergies/Adverse Reactions: Allergies Allergy/AdvReac Type Severity Reaction Status Date / Time clindamycin Allergy Severe Rash Verified 03/26/18 10:18 Egg Derived Allergy Severe Difficulty Verified 03/26/18 10:18 Swallowing levofloxacin Allergy Severe Rash Verified 03/26/18 10:18 Sulfa (Sulfonamide Allergy Severe Rash Verified 03/26/18 10:18 Antibiotics) codeine AdvReac Severe severe Verified 03/26/18 12:20 tachycardia PMH/Surg Hx/FS Hx/Imm Hx Endocrine/Hematology History: Reports: Hx Anemia - acute this admin Denies: Hx Diabetes Cardiovascular History: Reports: Hx Atrial Fibrillation, Hx Congestive Heart Failure - w/ef 45%, Hx Hypercholesterolemia, Hx Hypertension, Other Cardiovascular Problems/Disorders - LOOP recorder on left side. AFIB Denies: Hx Pacemaker/ICD Respiratory History: Reports: Hx Asthma, Hx Chronic Obstructive Pulmonary Disease (COPD), Hx Sleep Apnea GI History: Comment Only: Other GI Disorders - Current admin. Liquid stool x 3 days History: Reports: Hx Kidney Stones Denies: Hx Renal Disease Musculoskeletal History: Reports: Hx Arthritis, Other Musculoskeletal History - corticosteroids shots in bilateral knees in the past Denies: Hx Osteoporosis Sensory History: Reports: Hx Cataracts, Hx Contacts or Glasses, Hx Vision Problem - has reading glasses, Hx Hearing Problem - slightly [place] in left ear Denies: Hx Deafness, Hx Hearing Aid Opthamlomology History: Reports: Hx Cataracts, Hx Contacts or Glasses, Hx Vision Problem - has reading glasses Psychiatric History: Denies: Hx Panic Disorder - Cancer History Cancer Type, Location and Year: 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 Hx Chemotherapy: No Hx Radiation Therapy: Yes - Surgical History Surgery Procedure, Year, and Place: PORT RT SIDE, [employer] LINQ LOOP RECORDER, CATARACT REPAIR, CARPAL TUNNEL BILATERALLY, URETERAL STENTS FOR STONES Hx Anesthesia Reactions: No - Family History Family History: neg: Breast CA - Social History Alcohol Use: None Hx Substance Use: No Substance Use Type: Reports: None Hx Tobacco Use: Yes Smoking Status (MU): Former Smoker Type: Cigarettes Amount Used/How Often: smoked approx 40 years 1-1 1/2ppd Length of Time of Smoking/Using Tobacco: 40 years Have You Smoked in the Last Year: No Review of Systems Negative: Fever, Chills Negative: Chest Pain Positive: Shortness Of Breath, Cough Negative: Vomiting, Nausea All Other Systems Reviewed And Are Negative: Yes Physical Exam - Summary Physical Exam Summary: GENERAL: Patient is a well developed and nourished female who is lying comfortable in the stretcher. HEAD AND FACE: Normocephalic EYES: PERRLA, EOMI x 2. EARS: Hearing grossly intact. MOUTH: Oropharynx within normal limits. NECK: Supple, trachea is midline, no adenopathy, no JVD, no carotid bruit. CHEST: Symmetric, no tenderness at palpation LUNGS: Lungs have a lot of rhonchi, wheezing, and crackles. CVS: Irregularly irregular, S1 and S2 present, no murmurs or gallops appreciated. ABDOMEN: Soft, non-tender. Bowel sounds are normal. No abdominal abnormal pulsations. EXTREMITIES: Full ROM in all major joints, no edema, no cyanosis or clubbing. NEURO: Alert and oriented x 3. No acute neurological deficits. Speech is normal and follows commands. SKIN: Dry and warm Triage Information Reviewed: Yes Vital Signs On Initial Exam: Initial Vitals Temp Pulse Resp BP Pulse Ox 98.2 F 122 22 137/69 93 03/26/18 09:19 03/26/18 09:19 03/26/18 09:19 03/26/18 09:19 03/26/18 09:19 Vital Signs Reviewed: Yes Diagnostics - Laboratory Result Diagrams: 03/26/18 09:50 03/26/18 09:50 Lab Statement: Any lab studies that have been ordered have been reviewed, and results considered in the medical decision making process. - Radiology Chest XR Radiology Interpretation Completed By: Radiologist Summary of Radiographic Findings: IMPRESSION: Cardiomegaly with interstitial edema consistent with vascular congestion. Dr. Heath has reviewed this report. - EKG 09:22 Cardiac Rate: Tachycardia - at 128 bpm EKG Rhythm: Sinus Tachycardia Summary of EKG Findings: Some premature supraventricular complexes. Some ST depressions seen in the lateral leads. Re-Evaluation - Re-Evaluation First Eval Re-Evaluation Time: 11:03 Change: Worse Comment: Manual blood pressure is 92/52. Second Eval Re-Evaluation Time: 11:10 Change: Unchanged Comment: I discussed the admission plan with the pt. She understands and agrees. Third Eval Re-Evaluation Time: 11:22 Change: Improved Comment: Blood pressure has improved and is now 122/52. Course/Dx - Course Assessment/Plan: Pt is a 72 y/o female, with hx of small cell CA in right lung, afib and COPD, who presents to the ED via EMS from [facility] for SOB, worsening today. Pt reports she has had a nonproductive cough for a couple of weeks now. Workup is remarkable for a urinary tract infection. The patient will be admitted. Case discussed with oncologist, Dr. Martinez, who accepted the pt for admission. I discussed results with patient. The patient agrees with this plan. - Diagnoses Provider Diagnoses: UTI (urinary tract infection), COPD exacerbation - Physician Notifications Discussed Care of Patient With: Kenny Martinez - oncologist Time Discussed With Above Provider: 11:17 Instructed by Provider To: Admit As Inpatient Discharge - Sign-Out/Discharge Documenting (check all that apply): Patient Departure - Admit to [facility] - Discharge Plan Condition: Stable Disposition: ADMITTED TO [facility] - Billing Disposition and Condition Condition: STABLE Disposition: Admitted to [facility] - Attestation Statements Document Initiated by Barbara: Yes Documenting Scribe: Nicole Reed Provider For Whom Barbara is Documenting (Include Credential): Madison Heath MD Scribe Attestation: Nicole Kerr, scribed for Madison Heath MD on 03/26/18 at 1807. Scribe Documentation Reviewed: Yes Provider Attestation: The documentation as recorded by the sirenaibNicole delgado accurately reflects the service I personally performed and the decisions made by me, Madison Heath MD Status of Scribe Document: Viewed
[2018-03-26 10:08] LABS: Activated Partial Thrombo Time 26.3 seconds (26.0-36.3); INR 2.08 (0.77-1.02)
[2018-03-26] MEDS ORDERED: oxyCODONE/Acetamin 5/325 MG* TAB PO ONE (10:15)
[2018-03-26 10:19] LABS: Potassium 3.5 mmol/L (3.5-5.0)
[2018-03-26 10:19] LABS: Influenza A Molecular NEGATIVE (Negative); Influenza B Molecular NEGATIVE (Negative)
[2018-03-26 10:20] LABS: Albumin 3.4 g/dL (3.2-5.2); Albumin/Globulin Ratio 1.5 (1-3); BUN/Creatinine Ratio 29.4 (8-20); C Reactive Protein 185.59 mg/L (<8.01); Calcium 9.3 mg/dL (8.6-10.3); EGFR African American 103.2 (>60); EGFR Non-African American 85.3 (>60); Globulin 2.2 g/dL (2-4); Total Bilirubin 0.9 mg/dL (0.2-1.0); Total Protein 5.6 g/dL (6.4-8.9); Troponin I 0.03 ng/mL (<0.04)
[2018-03-26 10:40] LABS: Urine Appearance Turbid; Urine Bacteria 2+ (Absent); Urine Bilirubin Negative (Negative); Urine Blood 1+ (Negative); Urine Color Yellow; Urine Glucose Negative (Negative); Urine Ketones Negative (Negative); Urine Nitrite Positive (Negative); Urine Protein 2+(100 mg/dL) (Negative); Urine Red Blood Cell 3+(>10/hpf) (Absent); Urine Specific Gravity 1.017 (1.010-1.030); Urine Squamous Epithelial Cell Present (Absent); Urine Urobilinogen Negative (Negative); Urine White Blood Cell 3+(>20/hpf) (Absent)
[2018-03-26 10:54] LABS: Hematocrit 33 % (35-47); Hemoglobin 10.9 g/dl (12.0-16.0); Mean Corpuscular HGB Conc 33 g/dl (31-36); Mean Corpuscular Hemoglobin 35 pg (27-31); Mean Corpuscular Volume 106 fL (80-97); Mean Platelet Volume 8.4 fL (7.4-10.4); Platelet Count 84 10^3/ul (150-450); Red Blood Count 3.14 10^6/ul (4.00-5.40); Red Cell Distribution Width 30 % (10.5-15); White Blood Count 8.5 10^3/ul (3.5-10.8)
[2018-03-26 10:55] LABS: ABS Basophils 0 10^3/ul (0-0.2); ABS Eosinophils 0 10^3/ul (0-0.6); ABS Lymphocytes 0.3 10^3/ul (1.0-4.8); ABS Monocytes 1.1 10^3/ul (0-0.8); ABS Neutrophils 7.1 10^3/ul (1.5-7.7); ABS Nucleated RBC 0.1 10^3/ul; Eosinophil % 0.1 %; Lymphocyte % 3.4 %; Nucleated Red Blood Cells % 1.2
[2018-03-26] MEDS ORDERED: Albuterol HFA INHALER* 8 gm MDI INH PRN (12:07)
[2018-03-26] MEDS ORDERED: Montelukast Sodium TAB* 10 MG PO PRN (12:07)
[2018-03-26] MEDS ORDERED: Acetaminophen TAB* 325 MG PO PRN (12:07)
[2018-03-26] MEDS ORDERED: Polyethylene Glycol 3350* 17 GM PACKET PO PRN (12:07)
[2018-03-26] MEDS: fentaNYL PATCH 25 MCG/HR TRANSDERM SCH (16:26)
[2018-03-26] MEDS: fentaNYL PATCH 12 MCG/HR TRANSDERM SCH (16:27)
[2018-03-26] MEDS: oxyCODONE TAB* 5 MG TAB PO PRN (16:31)
[2018-03-26] MEDS: Rivaroxaban TAB(*) 20 MG TAB PO SCH (16:32)
[2018-03-26] MEDS: Lidocaine PATCH 5%* 1 PATCH TRANSDERM SCH (16:32)
[2018-03-26] MEDS: Potassium Chlor TAB* 20 MEQ TAB.ER PO SCH ×2 (16:32→20:21)
[2018-03-26] MEDS: Atorvastatin* 40 MG TAB PO SCH (16:32)
[2018-03-26] MEDS: NS 0.9% 1000 ML* 1,000 ML IV SCH (16:37)
[2018-03-26] MEDS: fentaNYL Patch Check Q Shift 1 NOTE FOLLOW UP SCH (19:09)
[2018-03-26] MEDS: Mometasone/Formoter 200/5 MDI INH PRN (20:02)
[2018-03-26] MEDS: Tamsulosin CAP* 0.4 MG PO SCH (20:08)
[2018-03-26] MEDS: Lidocaine Patch REMOVE* 1 NOTE MISC PATCH OFF SCH (20:22)
[2018-03-27] MEDS: NS 0.9% 1000 ML* 1,000 ML IV SCH (02:29)
--- NOTE | 2018-03-27 03:33 | HP ---
ADMISSION HISTORY AND PHYSICAL: DATE OF ADMISSION: 03/26/18 REASON FOR ADMISSION: Respiratory distress. HISTORY OF PRESENT ILLNESS: Kassandra Giraldo is a 72-year-old female who has had multiple hospitalizations over the course of the fall of 2018. She recently had been discharged from [facility] on 03/01/18. She has been residing at [facility] since then. Her prior admission from 03/01/18 to 03/12/18 was precipitated by severe back pain. She had a pseudomonal pneumonia, urinary retention along with a new compression fracture at L1. She had ongoing severe COPD with oxygen and steroid dependent during that hospitalization. She was discharged to [facility] at that time with a TLSO brace to use with any movement due to severe back pain from the lumbar compression fracture. She has an indwelling Mckeon catheter because of urinary retention, having had during her hospitalization potentially urinary tract infection with VRE, treated with a short course of linezolid. Her chemo-therapy was discontinued at that time and she has been scheduled for a followup PET scan to reevaluate for small-cell lung cancer status post therapy. She is also scheduled to see both Urology and Neurosurgery in followup. At [facility], it was noted that for the past several days, she has been requiring larger amounts of oxygen. She has left [facility] on 03/12 using 2 L per nasal cannula and on activity using up to 3 to 4. More recently, she has been requiring 4 to 5 L per nasal cannula and oxygen saturations even then were running in the upper 70s to low 80s. She reports over the last several days, she has been coughing frequently with thick green sputum and has been having wheezing. Breathing treatments have been given several times per day and have only been helping modestly. She has not had any fevers, chills, or sweats. She has recently been constipated and she has been taking more narcotics for her back pain. Since the [facility], her appetite has been decreased, but she has not had any nausea or vomiting. She does eat well and her family does bring in food for her. Since arrival in the emergency room, she was initially placed on nonrebreather mask and with this had oxygen saturations improved into the 90s. She has had nebulizer treatment, IV fluids, and been started on antibiotics. By the time I see her, she reports that she is feeling considerably improved after these interventions. PAST MEDICAL HISTORY: 1. Asthma. 2. Atrial fibrillation. 3. COPD. 4. Hyperlipidemia. 5. Hypertension. 6. Renal colic. 7. Osteoarthritis. 8. Sleep apnea. 9. Small-cell lung cancer diagnosed after initial workup starting in August 2017 , when a 1.2 cm nodule was noted in the right lung apex along with two 8 mm nodules in the right lung base. She was found to have a 2.3 cm mediastinal adenopathy in the right paratracheal region and 9 mm in the left prevascular space. This was a low-dose CT scan done for screening and was called lung-RADS 3. EBUS revealed four lymph nodes from small-cell lung cancer. PET scan in September 2017 revealed lymph nodes which were PET avid along with the larger of the three lung masses. She was treated with one cycle of carboplatin and etoposide in October supplemented with concurrent radiation therapy and then completed her chemotherapy. No history of IL, CVA, or diabetes. PAST SURGICAL HISTORY: Status post carpal tunnel release, bilateral cataract surgeries, and hemorrhoidectomy. MEDICATIONS: 1. Albuterol 1 to 2 puffs q.4 hours p.r.n. 2. Lipitor 40 mg daily. 3. Symbicort 1 puff b.i.d. 4. Vitamin D 1000 units daily. 5. Diltiazem 360 mg daily. 6. Lasix 20 mg daily. 7. Singulair 10 mg daily. 8. Xarelto 20 mg daily. 9. Spiriva 1 capsule daily. 10. Tylenol 650 mg q.4 hours p.r.n. pain or fever. 11. DuoNeb 1 inhalation q.4 hours p.r.n. shortness of breath. 12. Calcitonin nasal spray 200 units intranasally daily. 13. Docusate 100 mg b.i.d. 14. Fentanyl patch 37 mcg q.72 hours. 15. Lactulose 30 mL t.i.d. p.r.n. constipation. 16. Lidoderm patch 5% transdermally daily. 17. Magnesium oxide 40 mg b.i.d. 18. Omeprazole 20 mg daily. 19. Oxycodone 5 mg q.6 hours p.r.n. pain. 20. MiraLAX 17 g p.r.n. constipation. 21. Potassium chloride 20 mEq daily. 22. Prednisone 20 mg daily. 23. Flomax 0.4 mg at h.s. ALLERGIES: CLINDAMYCIN, CODEINE, SULFA ANTIBIOTICS, AND MULTIPLE ENVIRONMENTAL ALLERGIES. FAMILY HISTORY: Mother at 57 with COPD. Father at age 30 with complications of diabetes. No family history of any malignancy. SOCIAL HISTORY: She is . She is a prior smoker, but has stopped smoking. REVIEW OF SYSTEMS: Energy level has been slowly improving at the alf. She has been doing more with Physical Therapy and was getting up and walking short distances with oxygen as long as she wore the TLSO clamshell. Pain has been decreased to about 6 to 7/10 after she takes her oxycodone, but up to 8 or 9/10 prior to receiving it. This is in the area of the L1 vertebra. Mckeon catheter is still in place and she reports significant pressure when her catheter is not adequately emptied. Denies any shaking chills or fevers. Has had some sweats with her hair becoming drenched, but not the body. She has been constipated recently and has not had a BM in 4 days. Medications for bowels had been helping this before that. She does report some breakdown in the buttocks and they have been using cream on her buttocks for the past 1 week. She denies any chest pain, denies any palpitations, denies any swelling in her ankles. Has not been on any antibiotics since her prior hospitalization. Denies any neurologic complaints. PHYSICAL EXAMINATION GENERAL: A 72-year-old female, lying comfortably in bed with O2 at 5 L. VITAL SIGNS: Blood pressure 122/52, pulse 107 and irregularly irregular, O2 saturation 93% on 5 L and afebrile. HEENT: PERRLA, EOMI. No erythema or exudate. Moist mucous membranes. NECK: No palpable cervical, supraclavicular or axillary adenopathy is noted. LUNGS: Diffuse wheezing bilaterally. HEART: Irregularly irregular rhythm without murmurs, rubs, or gallops. ABDOMEN: Soft and nontender without masses or organomegaly. EXTREMITIES: No clubbing, cyanosis, or edema. BACK: No CVA or spinal tenderness. NEUROLOGIC: Exam without focal deficits. LABORATORY DATA: CBC: Elevated white count of 8500, hemoglobin and hematocrit of 10.9 and 33, platelet count 84,000, which is slightly diminished from the values since she finished her chemotherapy. Differential includes an ANC of 7100. Chemistry studies: Sodium 136, potassium 3.5, chloride 98, bicarb 31, BUN 30, creatinine 0.68, glucose 115, lactic acid 1.4. LFTs normal, C reactive protein elevated at 185, BNP slightly elevated at 340. Urine with 2+ protein, 1+ blood, positive nitrites, 3+ leukocyte esterase with 3 + white cells and 3+ red cells, 2+ bacteria with squamous cells present on a specimen taken through her Mckeon catheter. Influenza A and B are negative on rapid testing. Microbiology has been obtained including a nasal swab negative for MRSA. Urine cultures and blood cultures are pending at the present time. Chest x-ray is reported to show cardiomegaly with interstitial edema, felt to be most consistent with vascular congestion by the radiologist, but I believe more likely represents potentially a small infiltrate. IMPRESSION AND PLAN: A 72-year-old female with: 1. Small-cell lung cancer, limited stage, status post recently completing chemotherapy and radiation therapy. She presents now with an increased productive cough of greenish sputum along with wheezing and some respiratory distress. This has been increasing over the past several days. This most likely seems to represent a COPD exacerbation with potentially some infection. She has been started on ceftriaxone and Zithromax; this will be continued. She has been given extra nebulizers and maintained on the usual inhalers. Steroid was given as a dose of Decadron in the emergency room and the 20 mg of prednisone will be increased to 60 mg daily of Solu-Medrol. We will attempt to keep her O2 saturations over 88% by increasing her FiO2 to 5 L and titrating as needed. 2. Recent compression fracture of the spine. Pain medication have been increased recently including fentanyl patch increased to 37 mcg during her prior admission. Oxycodone has been used at 5 mg q.6 hours and will be increased as needed to q.4 hours p.r.n. When she is up and about, she will need to use her TLSO brace. 3. Urinary retention. She does have a Mckeon catheter in place. Plan had been for this to be attempted to be discontinued while in the nursing room, but it is still in place. We will see if we can discontinue it in the next several days. During her prior hospitalization, she did grow VRE out of the urine. It was initially thought to be a contaminant, but eventually was treated with linezolid for several days as it was felt it could be an acute cystitis given her urinary retention. 4. Small-cell lung cancer. No obvious active disease at the present time. A restaging scan had been scheduled for early March and if she improves, it will be obtained as an outpatient. If her respiratory status deteriorates or does not improve quickly, a CT scan will be obtained as an inpatient. 5. History of atrial fibrillation, currently in atrial fibrillation. She will be continued on her Xarelto. 6. Constipation from the narcotics. She will be maintained on her docusate, but lactulose and MiraLAX will be given as needed to help clear up the constipation. 7. The patient requests full code status including intubation if necessary to get her through this episode. [id number]/[facility] #: [id number] CR
[2018-03-27] MEDS: fentaNYL Patch Check Q Shift 1 NOTE FOLLOW UP SCH ×2 (05:40→19:25)
[2018-03-27 05:51] LABS: Hematocrit 22 % (35-47); Hemoglobin 7.2 g/dl (12.0-16.0); Mean Corpuscular HGB Conc 33 g/dl (31-36); Mean Corpuscular Hemoglobin 35 pg (27-31); Mean Corpuscular Volume 106 fL (80-97); Mean Platelet Volume 8.3 fL (7.4-10.4); Platelet Count 100 10^3/ul (150-450); Red Blood Count 2.05 10^6/ul (4.00-5.40); Red Cell Distribution Width 29 % (10.5-15); White Blood Count 11.4 10^3/ul (3.5-10.8)
[2018-03-27 06:06] LABS: BUN/Creatinine Ratio 28.1 (8-20); Calcium 9.2 mg/dL (8.6-10.3); EGFR African American 126.5 (>60); EGFR Non-African American 104.6 (>60); Potassium 3.9 mmol/L (3.5-5.0)
[2018-03-27 06:18] LABS: ABS Basophils 0 10^3/ul (0-0.2); ABS Eosinophils 0 10^3/ul (0-0.6); ABS Lymphocytes 0.3 10^3/ul (1.0-4.8); ABS Nucleated RBC 0 10^3/ul; Eosinophil % 0 %; Lymphocyte % 2.3 %; Nucleated Red Blood Cells % 0.2
[2018-03-27] MEDS: oxyCODONE TAB* 5 MG TAB PO PRN ×3 (08:12→18:14)
[2018-03-27] MEDS: Diltiazem CD CAP* 180 MG PO SCH (08:13)
[2018-03-27] MEDS: Omeprazole CAP (NF) 20 MG CAP.DR PO SCH (08:13)
[2018-03-27] MEDS: Cholecalciferol TAB* 1000 UNITS PO SCH (08:13)
[2018-03-27] MEDS: methylPREDNISolone 125 MG* 2 ML VIAL IV SCH (08:13)
[2018-03-27] MEDS: Furosemide TAB* 20 MG PO SCH (08:14)
[2018-03-27] MEDS: Potassium Chlor TAB* 20 MEQ TAB.ER PO SCH ×2 (08:14→20:37)
[2018-03-27] MEDS: Lidocaine PATCH 5%* 1 PATCH TRANSDERM SCH (08:15)
[2018-03-27] MEDS: CMC: Calcitonin NASAL(NF) 200 UNITS/SPRAY NASAL.SPR ALT NARE SCH (08:38)
--- NOTE | 2018-03-27 09:05 | PN ---
Progress Note - Progress Note Date of Service: 03/27/18 SOAP: Subjective: [Admitted yesterday with COPD exacerbation. Feels slightly better today, but still quite winded just with conversation.] Objective: [ Laboratory Results - last 24 hr 03/26/18 03/26/18 03/26/18 09:30 09:50 09:50 WBC 8.5 RBC 3.14 L Hgb 10.9 L Hct 33 L MCV 106 H MCH 35 H MCHC 33 RDW 30 H Plt Count 84 L MPV 8.4 Neut % (Auto) 83.2 Lymph % (Auto) 3.4 [place] % (Auto) 12.8 Eos % (Auto) 0.1 Baso % (Auto) 0.5 Absolute Neuts (auto) 7.1 Absolute Lymphs (auto) 0.3 L Absolute Monos (auto) 1.1 H Absolute Eos (auto) 0 Absolute Basos (auto) 0 Absolute Nucleated RBC 0.1 Nucleated RBC % 1.2 Anisocytosis 1+ Macrocytosis 1+ INR (Anticoag Therapy) 2.08 H APTT 26.3 ABG pH 7.51 H ABG pCO2 34 L ABG pO2 79 L ABG HCO3 28.2 ABG O2 Saturation 97.7 ABG Base Excess 4.3 H Sodium Potassium Chloride Carbon Dioxide Anion Gap BUN Creatinine Est GFR ( Amer) Est GFR (Non-Af Amer) BUN/Creatinine Ratio Glucose Lactic Acid Calcium Total Bilirubin AST ALT Alkaline Phosphatase Troponin I C-Reactive Protein B-Natriuretic Peptide Total Protein Albumin Globulin Albumin/Globulin Ratio Urine Color Urine Appearance Urine pH Ur Specific [place] Urine Protein Urine Ketones Urine Blood Urine Nitrate Urine Bilirubin Urine Urobilinogen Ur Leukocyte Esterase Urine WBC (Auto) Urine RBC (Auto) Ur Squamous Epith Cells Urine Bacteria Urine Glucose Influenza A (Rapid) Influenza B (Rapid) 03/26/18 03/26/18 03/26/18 09:50 09:50 09:50 WBC RBC Hgb Hct MCV MCH MCHC RDW Plt Count MPV Neut % (Auto) Lymph % (Auto) [place] % (Auto) Eos % (Auto) Baso % (Auto) Absolute Neuts (auto) Absolute Lymphs (auto) Absolute Monos (auto) Absolute Eos (auto) Absolute Basos (auto) Absolute Nucleated RBC Nucleated RBC % Anisocytosis Macrocytosis INR (Anticoag Therapy) APTT ABG pH ABG pCO2 ABG pO2 ABG HCO3 ABG O2 Saturation ABG Base Excess Sodium 136 Potassium 3.5 Chloride 98 L Carbon Dioxide 31 Anion Gap 7 BUN 20 Creatinine 0.68 Est GFR ( Amer) 103.2 Est GFR (Non-Af Amer) 85.3 BUN/Creatinine Ratio 29.4 H Glucose 115 H Lactic Acid 1.4 Calcium 9.3 Total Bilirubin 0.90 AST 10 L ALT 23 Alkaline Phosphatase 106 H Troponin I 0.03 C-Reactive Protein 185.59 H B-Natriuretic Peptide 340 H Total Protein 5.6 L Albumin 3.4 Globulin 2.2 Albumin/Globulin Ratio 1.5 Urine Color Urine Appearance Urine pH Ur Specific [place] Urine Protein Urine Ketones Urine Blood Urine Nitrate Urine Bilirubin Urine Urobilinogen Ur Leukocyte Esterase Urine WBC (Auto) Urine RBC (Auto) Ur Squamous Epith Cells Urine Bacteria Urine Glucose Influenza A (Rapid) Influenza B (Rapid) 03/26/18 03/26/18 03/26/18 09:51 10:06 13:42 WBC RBC Hgb Hct MCV MCH MCHC RDW Plt Count MPV Neut % (Auto) Lymph % (Auto) [place] % (Auto) Eos % (Auto) Baso % (Auto) Absolute Neuts (auto) Absolute Lymphs (auto) Absolute Monos (auto) Absolute Eos (auto) Absolute Basos (auto) Absolute Nucleated RBC Nucleated RBC % Anisocytosis Macrocytosis INR (Anticoag Therapy) APTT ABG pH ABG pCO2 ABG pO2 ABG HCO3 ABG O2 Saturation ABG Base Excess Sodium Potassium Chloride Carbon Dioxide Anion Gap BUN Creatinine Est GFR ( Amer) Est GFR (Non-Af Amer) BUN/Creatinine Ratio Glucose Lactic Acid 1.1 Calcium Total Bilirubin AST ALT Alkaline Phosphatase Troponin I C-Reactive Protein B-Natriuretic Peptide Total Protein Albumin Globulin Albumin/Globulin Ratio Urine Color Yellow Urine Appearance Turbid Urine pH 6.0 Ur Specific [place] 1.017 Urine Protein 2+(100 mg/dl) A Urine Ketones Negative Urine Blood 1+ A Urine Nitrate Positive A Urine Bilirubin Negative Urine Urobilinogen Negative Ur Leukocyte Esterase 3+ A Urine WBC (Auto) 3+(>20/hpf) A Urine RBC (Auto) 3+(>10/hpf) A Ur Squamous Epith Cells Present A Urine Bacteria 2+ A Urine Glucose Negative Influenza A (Rapid) Negative Influenza B (Rapid) Negative 03/27/18 03/27/18 05:40 05:40 WBC 11.4 H RBC 2.05 L Hgb 7.2 L Hct 22 L MCV 106 H MCH 35 H MCHC 33 RDW 29 H Plt Count 100 L MPV 8.3 Neut % (Auto) 88.3 Lymph % (Auto) 2.3 [place] % (Auto) 9.2 Eos % (Auto) 0 Baso % (Auto) 0.2 Absolute Neuts (auto) 10.0 H Absolute Lymphs (auto) 0.3 L Absolute Monos (auto) 1.0 H Absolute Eos (auto) 0 Absolute Basos (auto) 0 Absolute Nucleated RBC 0 Nucleated RBC % 0.2 Anisocytosis Macrocytosis INR (Anticoag Therapy) APTT ABG pH ABG pCO2 ABG pO2 ABG HCO3 ABG O2 Saturation ABG Base Excess Sodium 139 Potassium 3.9 Chloride 105 Carbon Dioxide 29 Anion Gap 5 BUN 16 Creatinine 0.57 Est GFR ( Amer) 126.5 Est GFR (Non-Af Amer) 104.6 BUN/Creatinine Ratio 28.1 H Glucose 125 H Lactic Acid Calcium 9.2 Total Bilirubin AST ALT Alkaline Phosphatase Troponin I C-Reactive Protein B-Natriuretic Peptide Total Protein Albumin Globulin Albumin/Globulin Ratio Urine Color Urine Appearance Urine pH Ur Specific [place] Urine Protein Urine Ketones Urine Blood Urine Nitrate Urine Bilirubin Urine Urobilinogen Ur Leukocyte Esterase Urine WBC (Auto) Urine RBC (Auto) Ur Squamous Epith Cells Urine Bacteria Urine Glucose Influenza A (Rapid) Influenza B (Rapid) Acetaminophen (Tylenol Tab*) 650 mg PO Q4H PRN PRN Reason: pain/fever Albuterol (Ventolin Hfa Inhaler*) 2 puff INH Q4H PRN PRN Reason: SOB/WHEEZING Albuterol/Ipratropium (Duoneb (Albuterol 2.5 Mg/Ipratropium 0.5 Mg)) 1 neb INH Q4H PRN PRN Reason: SOB/WHEEZING Atorvastatin Calcium (Lipitor*) 40 mg PO QPM [facility] Last Admin: 03/26/18 16:32 Dose: 40 mg Calcitonin [place] (Fortical(Nr)) 200 units ALT NARE DAILY [facility]; Protocol Last Admin: 03/27/18 08:38 Dose: Not Given Cholecalciferol (Vitamin D Tab*) 1,000 units PO QAM [facility] Last Admin: 03/27/18 08:13 Dose: 1,000 units Diltiazem HCl (Cardizem Cd Cap*) 360 mg PO QAM [facility] Last Admin: 03/27/18 08:13 Dose: 360 mg Docusate Sodium (Colace Cap*) 100 mg PO BID PRN PRN Reason: CONSTIPATION Fentanyl (Duragesic Patch 12 Mcg/Hr *) 12 mcg TRANSDERM Q72H [facility] Last Admin: 03/26/18 16:27 Dose: 12 mcg Fentanyl (Duragesic Patch 25 Mcg/Hr*) 25 mcg TRANSDERM Q72H [facility] Last Admin: 03/26/18 16:26 Dose: 25 mcg Furosemide (Lasix Tab*) 20 mg PO DAILY [facility] Last Admin: 03/27/18 08:14 Dose: 20 mg Ceftriaxone Sodium 1 gm/ (Sodium Chloride) 50 mls @ 200 mls/hr IVPB Q24H [facility] Azithromycin 250 mg/ Sodium (Chloride) 250 mls @ 250 mls/hr IVPB Q24H [facility] Lactulose (Lactulose*) 30 ml PO TID PRN PRN Reason: CONSTIPATION Last Admin: 03/27/18 08:12 Dose: 30 ml Lidocaine (Lidoderm 5% Patch*) 1 patch TRANSDERM DAILY [facility] Last Admin: 03/27/18 08:15 Dose: 1 patch Methylprednisolone Sodium Succinate (Solu-Medrol 125mg *) 60 mg IV DAILY [facility] Last Admin: 03/27/18 08:13 Dose: 60 mg Mometasone Furoate/Formoterol Fumar (Dulera 200/5 Mdi*) 1 puff INH BID PRN; Protocol PRN Reason: SHORTNESS OF BREATH Last Admin: 03/26/18 20:02 Dose: 1 puff Montelukast Sodium (Singulair Tab*) 10 mg PO DAILY PRN PRN Reason: Allergy Symptoms Omeprazole (Prilosec Cap*) 20 mg PO DAILY@0730 [facility] Last Admin: 03/27/18 08:13 Dose: 20 mg Oxycodone HCl (Roxycodone Tab*) 5 mg PO Q4H PRN PRN Reason: pain Last Admin: 03/27/18 08:12 Dose: 5 mg Pharmacy Profile Note (Lidocaine Patch Remove*) 1 note PATCH OFF 2100 [facility] Last Admin: 03/26/18 20:22 Dose: 1 note Pharmacy Profile Note (Fentanyl Patch Check Q Shift) 1 note FOLLOW UP 0700, 1900 [facility] Last Admin: 03/27/18 05:40 Dose: 1 note Polyethylene Glycol/Electrolytes (Miralax*) 17 gm PO DAILY PRN PRN Reason: CONSTIPATION Potassium Chloride (Klor Con Er Tab*) 20 meq PO BID [facility] Last Admin: 03/27/18 08:14 Dose: 20 meq Rivaroxaban (Xarelto(*)) 20 mg PO QPM [facility] Last Admin: 03/26/18 16:32 Dose: 20 mg Tamsulosin HCl (Flomax Cap*) 0.4 mg PO BEDTIME [facility] Last Admin: 03/26/18 20:08 Dose: 0.4 mg Vital Signs: Temp Pulse Resp BP Pulse Ox 98.6 F 87 22 133/62 93 03/27/18 07:15 03/27/18 07:15 03/27/18 08:20 03/27/18 07:15 03/27/18 08:20 Exam: Gen: Chronically ill appearing 72 yo female in NAD, slight increased WOB HEENT: MMM, no thrush CV: RRR, no m/r/g Resp: diffuse rhonchi and wheezing Abd: soft, nonTTP Ext: no edema Skin: no rashes] Assessment: [72 yo female with limited stage small cell lung CA who recently completed chemotherapy and radiation who was recently discharged to [facility] for rehab following L1 compression fracture who is now readmitted with a COPD exacerbation.] Plan: [1. COPD exacerbation: - no obvious PNA, but cont abx coverage with ceftriaxone/azithro - cont Solumedrol - reg DuoNebs - cont Breo/Spiriva 2. Small cell lung CA - completed therapy - pending post treatment restaging 3. Urinary retention - Mckeon catheter remains in place, failed multiple prior attempts to remove - needs follow up with Dr Calvillo 4. L1 compression fx - has been in rehab with some improved mobility, but still limited - TLSO brace with any activity - need to clarify with Dr Quick the length of time she should remain in the brace and timing of repeat imaging Dispo: cont inpatient stay]
[2018-03-27] MEDS ORDERED: Spiriva Inhaler DEVICE* 1 EACH DEVICE SCH (10:00)
[2018-03-27] MEDS: Azithromycin IV(*) 250 MG in NS 0.9% 250 ML* 250 ML IVPB SCH (10:49)
[2018-03-27] MEDS: cefTRIAXone(*) 1 GM in NS 0.9% 50 ML* 50 ML IVPB SCH (11:55)
[2018-03-27] MEDS: Albuterol/Ipratropium NEB.SOL* Albuterol 2.5 MG/Ipratropium 0.5 MG 3 ML INH SCH ×2 (12:02→19:53)
[2018-03-27] MEDS: Atorvastatin* 40 MG TAB PO SCH (18:14)
[2018-03-27] MEDS: Rivaroxaban TAB(*) 20 MG TAB PO SCH (18:14)
[2018-03-27] MEDS: Tamsulosin CAP* 0.4 MG PO SCH (20:37)
[2018-03-27] MEDS: Lidocaine Patch REMOVE* 1 NOTE MISC PATCH OFF SCH (20:37)
[2018-03-27] MEDS: Docusate CAP* 100 MG PO PRN (20:37)
[2018-03-28] MEDS: Albuterol/Ipratropium NEB.SOL* Albuterol 2.5 MG/Ipratropium 0.5 MG 3 ML INH SCH ×4 (01:01→18:08)
[2018-03-28] MEDS: oxyCODONE TAB* 5 MG TAB PO PRN ×3 (06:06→21:59)
[2018-03-28 06:24] LABS: ABS Basophils 0 10^3/ul (0-0.2); ABS Eosinophils 0 10^3/ul (0-0.6); ABS Lymphocytes 0.4 10^3/ul (1.0-4.8); ABS Monocytes 1.1 10^3/ul (0-0.8); ABS Neutrophils 12.4 10^3/ul (1.5-7.7); ABS Nucleated RBC 0.1 10^3/ul; Eosinophil % 0 %; Hematocrit 23 % (35-47); Hemoglobin 7.5 g/dl (12.0-16.0); Lymphocyte % 2.7 %; Mean Corpuscular HGB Conc 33 g/dl (31-36); Mean Corpuscular Hemoglobin 35 pg (27-31); Mean Corpuscular Volume 107 fL (80-97); Mean Platelet Volume 8.4 fL (7.4-10.4); Nucleated Red Blood Cells % 0.6; Platelet Count 111 10^3/ul (150-450); Red Blood Count 2.14 10^6/ul (4.00-5.40); Red Cell Distribution Width 29 % (10.5-15); White Blood Count 13.9 10^3/ul (3.5-10.8)
[2018-03-28 06:32] LABS: BUN/Creatinine Ratio 28.3 (8-20); Calcium 9.5 mg/dL (8.6-10.3); EGFR African American 119.2 (>60); EGFR Non-African American 98.5 (>60); Potassium 4.1 mmol/L (3.5-5.0)
[2018-03-28] MEDS: fentaNYL Patch Check Q Shift 1 NOTE FOLLOW UP SCH ×2 (07:00→19:05)
[2018-03-28] MEDS: Mometasone/Formoter 200/5 MDI INH PRN ×2 (07:19→18:09)
[2018-03-28] MEDS: Tiotropium CAP.INH* CAP.INH/18 MCG (USE ORDER SET !) INH SCH (07:19)
[2018-03-28] MEDS: Cholecalciferol TAB* 1000 UNITS PO SCH (08:43)
[2018-03-28] MEDS: Omeprazole CAP (NF) 20 MG CAP.DR PO SCH (08:43)
[2018-03-28] MEDS: Diltiazem CD CAP* 180 MG PO SCH (08:43)
[2018-03-28] MEDS: Furosemide TAB* 20 MG PO SCH (08:43)
[2018-03-28] MEDS: CMC: Calcitonin NASAL(NF) 200 UNITS/SPRAY NASAL.SPR ALT NARE SCH (08:43)
[2018-03-28] MEDS: Potassium Chlor TAB* 20 MEQ TAB.ER PO SCH ×2 (08:43→22:00)
[2018-03-28] MEDS: Lidocaine PATCH 5%* 1 PATCH TRANSDERM SCH (08:44)
[2018-03-28] MEDS: methylPREDNISolone 125 MG* 2 ML VIAL IV SCH (08:44)
--- NOTE | 2018-03-28 10:00 | PN ---
Progress Note - Progress Note Date of Service: 03/28/18 SOAP: Subjective: [No changes. Still winded with minimal activity, maybe slightly improved. No back pain at rest.] Objective: [ Laboratory Results - last 24 hr 03/28/18 03/28/18 03/28/18 05:59 05:59 05:59 WBC 13.9 H RBC 2.14 L Hgb 7.5 L Hct 23 L MCV 107 H MCH 35 H MCHC 33 RDW 29 H Plt Count 111 L MPV 8.4 Neut % (Auto) 89.5 Lymph % (Auto) 2.7 [place] % (Auto) 7.8 Eos % (Auto) 0 Baso % (Auto) 0 Absolute Neuts (auto) 12.4 H Absolute Lymphs (auto) 0.4 L Absolute Monos (auto) 1.1 H Absolute Eos (auto) 0 Absolute Basos (auto) 0 Absolute Nucleated RBC 0.1 Nucleated RBC % 0.6 Sodium 139 Potassium 4.1 Chloride 104 Carbon Dioxide 29 Anion Gap 6 BUN 17 Creatinine 0.60 Est GFR ( Amer) 119.2 Est GFR (Non-Af Amer) 98.5 BUN/Creatinine Ratio 28.3 H Glucose 122 H Calcium 9.5 Blood Type O Negative Antibody Screen Negative Crossmatch See Detail Vital Signs: Temp Pulse Resp BP Pulse Ox 97.5 F 74 18 113/62 94 03/28/18 04:02 03/28/18 07:22 03/28/18 08:06 03/28/18 04:02 03/28/18 07:22 Exam: Gen: Chronically ill appearing 72 yo female in NAD, slight increased WOB HEENT: MMM, no thrush CV: RRR, no m/r/g Resp: diffuse rhonchi and wheezing Abd: soft, nonTTP Ext: no edema Skin: no rashes] Assessment: [72 yo female with limited stage small cell lung CA who recently completed chemotherapy and radiation who was recently discharged to [facility] for rehab following L1 compression fracture who is now readmitted with a COPD exacerbation.] Plan: [1. COPD exacerbation: - no obvious PNA, but cont abx coverage with ceftriaxone/azithro - cont Solumedrol - reg DuoNebs - cont Breo/Spiriva 2. Small cell lung CA - completed therapy - pending post treatment restaging 3. Urinary retention - Mckeon catheter remains in place, failed multiple prior attempts to remove - needs follow up with Dr Calvillo, scheduled for Apr 11 at 1:15p 4. L1 compression fx - has been in rehab with some improved mobility, but still limited - TLSO brace with any activity - spoke with Dr Enriquez who recommends TLSO for ~ 12 weeks, he will order repeat XR when he sees her clinic later this month - pain reasonably well controlled at this time Dispo: cont inpatient stay, will likely need to return to [facility] following this admission. She would like to consider [facility]
[2018-03-28] MEDS: Azithromycin IV(*) 250 MG in NS 0.9% 250 ML* 250 ML IVPB SCH (10:16)
[2018-03-28] MEDS: cefTRIAXone(*) 1 GM in NS 0.9% 50 ML* 50 ML IVPB SCH (11:58)
[2018-03-28] MEDS: Rivaroxaban TAB(*) 20 MG TAB PO SCH (17:35)
[2018-03-28] MEDS: Atorvastatin* 40 MG TAB PO SCH (17:35)
[2018-03-28] MEDS: Tamsulosin CAP* 0.4 MG PO SCH (21:59)
[2018-03-28] MEDS: Lidocaine Patch REMOVE* 1 NOTE MISC PATCH OFF SCH (22:00)
[2018-03-29] MEDS: Albuterol/Ipratropium NEB.SOL* Albuterol 2.5 MG/Ipratropium 0.5 MG 3 ML INH SCH ×2 (01:09→07:18)
[2018-03-29] MEDS ORDERED: PROCHLORPERAZINE INJ 5 MG/ML 2 ML VIAL IV PRN (03:10)
[2018-03-29] MEDS: fentaNYL Patch Check Q Shift 1 NOTE FOLLOW UP SCH ×2 (06:15→19:23)
[2018-03-29] MEDS: oxyCODONE TAB* 5 MG TAB PO PRN ×2 (06:19→17:00)
[2018-03-29] MEDS: Tiotropium CAP.INH* CAP.INH/18 MCG (USE ORDER SET !) INH SCH (07:18)
[2018-03-29] MEDS: Mometasone/Formoter 200/5 MDI INH PRN (07:18)
[2018-03-29] MEDS: Potassium Chlor TAB* 20 MEQ TAB.ER PO SCH ×2 (08:58→22:21)
[2018-03-29] MEDS: Furosemide TAB* 20 MG PO SCH (08:58)
[2018-03-29] MEDS: Omeprazole CAP (NF) 20 MG CAP.DR PO SCH (08:58)
[2018-03-29] MEDS: Lidocaine PATCH 5%* 1 PATCH TRANSDERM SCH (08:58)
[2018-03-29] MEDS: Diltiazem CD CAP* 180 MG PO SCH (08:58)
[2018-03-29] MEDS: Cholecalciferol TAB* 1000 UNITS PO SCH (08:58)
[2018-03-29] MEDS: CMC: Calcitonin NASAL(NF) 200 UNITS/SPRAY NASAL.SPR ALT NARE SCH (08:59)
[2018-03-29] MEDS: methylPREDNISolone 125 MG* 2 ML VIAL IV SCH (08:59)
[2018-03-29 09:27] LABS: Corrected Retic Count 2.4 % (0.5-1.5); Hematocrit for Retic CNT 26 % (35-47); Immature Retic Fraction 0.55; RBC Retic Count 2.51 10^6/ul (4.6-6.2)
[2018-03-29 09:43] LABS: % Iron Saturation 50 % (15-55); Iron 122 ug/dL (50-212); LDH 244 U/L (140-271); Total Iron Binding Capacity 244 mcg/dL (250-450); Transferrin 174 mg/dL (203-362)
[2018-03-29 10:04] LABS: Ferritin 1033.2 ng/mL (11-307)
[2018-03-29] MEDS: Azithromycin IV(*) 250 MG in NS 0.9% 250 ML* 250 ML IVPB SCH (10:54)
--- NOTE | 2018-03-29 12:43 | PN ---
Progress Note - Progress Note Date of Service: 03/29/18 SOAP: Subjective: []Feeling a little better. Breathing still difficulty. Back pain controlled. She is using brace. No fever or chills. Acetaminophen (Tylenol Tab*) 650 mg PO Q4H PRN PRN Reason: pain/fever Albuterol/Ipratropium (Duoneb (Albuterol 2.5 Mg/Ipratropium 0.5 Mg)) 1 neb INH Q4H PRN PRN Reason: SOB/WHEEZING Albuterol/Ipratropium (Duoneb (Albuterol 2.5 Mg/Ipratropium 0.5 Mg)) 1 neb INH [id number] AWAKE [facility] Last Admin: 03/29/18 07:18 Dose: 1 neb Atorvastatin Calcium (Lipitor*) 40 mg PO QPM [facility] Last Admin: 03/28/18 17:35 Dose: 40 mg Calcitonin [place] (Fortical(Nr)) 200 units ALT NARE DAILY [facility]; Protocol Last Admin: 03/29/18 08:59 Dose: Not Given Cholecalciferol (Vitamin D Tab*) 1,000 units PO QAM [facility] Last Admin: 03/29/18 08:58 Dose: 1,000 units Device (Tiotropium Inhaler Device*) 1 each .SEE ORDER .USE w/ SPIRIVA CAPS [facility] Diltiazem HCl (Cardizem Cd Cap*) 360 mg PO QAM [facility] Last Admin: 03/29/18 08:58 Dose: 360 mg Docusate Sodium (Colace Cap*) 100 mg PO BID PRN PRN Reason: CONSTIPATION Last Admin: 03/27/18 20:37 Dose: 100 mg Fentanyl (Duragesic Patch 12 Mcg/Hr *) 12 mcg TRANSDERM Q72H [facility] Last Admin: 03/26/18 16:27 Dose: 12 mcg Fentanyl (Duragesic Patch 25 Mcg/Hr*) 25 mcg TRANSDERM Q72H [facility] Last Admin: 03/26/18 16:26 Dose: 25 mcg Furosemide (Lasix Tab*) 20 mg PO DAILY [facility] Last Admin: 03/29/18 08:58 Dose: 20 mg Ceftriaxone Sodium 1 gm/ (Sodium Chloride) 50 mls @ 200 mls/hr IVPB Q24H [facility] Last Admin: 03/28/18 11:58 Dose: 200 mls/hr Azithromycin 250 mg/ Sodium (Chloride) 250 mls @ 250 mls/hr IVPB Q24H [facility] Last Admin: 03/29/18 10:54 Dose: 250 mls/hr Lactulose (Lactulose*) 30 ml PO TID PRN PRN Reason: CONSTIPATION Last Admin: 03/27/18 08:12 Dose: 30 ml Lidocaine (Lidoderm 5% Patch*) 1 patch TRANSDERM DAILY [facility] Last Admin: 03/29/18 08:58 Dose: 1 patch Methylprednisolone Sodium Succinate (Solu-Medrol 125mg *) 60 mg IV DAILY [facility] Last Admin: 03/29/18 08:59 Dose: 60 mg Mometasone Furoate/Formoterol Fumar (Dulera 200/5 Mdi*) 1 puff INH BID PRN; Protocol PRN Reason: SHORTNESS OF BREATH Last Admin: 03/29/18 07:18 Dose: 1 puff Montelukast Sodium (Singulair Tab*) 10 mg PO DAILY PRN PRN Reason: Allergy Symptoms Omeprazole (Prilosec Cap*) 20 mg PO DAILY@0730 [facility] Last Admin: 03/29/18 08:58 Dose: 20 mg Oxycodone HCl (Roxycodone Tab*) 5 mg PO Q4H PRN PRN Reason: pain Last Admin: 03/29/18 06:19 Dose: 5 mg Pharmacy Profile Note (Lidocaine Patch Remove*) 1 note PATCH OFF 2100 [facility] Last Admin: 03/28/18 22:00 Dose: 1 note Pharmacy Profile Note (Fentanyl Patch Check Q Shift) 1 note FOLLOW UP 0700, 1900 [facility] Last Admin: 03/29/18 06:15 Dose: 1 note Polyethylene Glycol/Electrolytes (Miralax*) 17 gm PO DAILY PRN PRN Reason: CONSTIPATION Potassium Chloride (Klor Con Er Tab*) 20 meq PO BID [facility] Last Admin: 03/29/18 08:58 Dose: 20 meq Prochlorperazine Edisylate (Compazine Inj*) 10 mg IV Q6H PRN PRN Reason: NAUSEA Rivaroxaban (Xarelto(*)) 20 mg PO QPM [facility] Last Admin: 03/28/18 17:35 Dose: 20 mg Tamsulosin HCl (Flomax Cap*) 0.4 mg PO BEDTIME [facility] Last Admin: 03/28/18 21:59 Dose: 0.4 mg Tiotropium [place] (Spiriva Cap.Inh*) 1 cap INH DAILY [facility] Last Admin: 03/29/18 07:18 Dose: 1 cap Objective: [] Vital Signs Temp Pulse Resp BP Pulse Ox 98.0 F 85 16 142/60 97 03/29/18 11:35 03/29/18 11:35 03/29/18 11:35 03/29/18 11:35 03/29/18 11:35 HEENT: MMM, no thrush CV: RRR, no m/r/g Resp: diffuse rhonchi and wheezing, no change Abd: soft, nonTTP, obese MK: difficult time turning in bed, diffuse weakness Ext: no edema Skin: no rashes] Assessment: [72 yo female with limited stage small cell lung CA who recently completed chemotherapy and radiation. Admission to [facility] 02/2018 with L1 compression fracture, discharged to [facility] for rehab. Re-admission for COPD. Today with slow improvement. Plan: [1. COPD exacerbation: - no obvious PNA, but cont abx coverage with ceftriaxone/azithro - cont Solumedrol 60 qd - reg DuoNebs - cont Breo/Spiriva 2. Small cell lung CA - completed therapy - pending post treatment restaging 3. Urinary retention - Mckeon catheter remains in place, failed multiple prior attempts to remove - needs follow up with Dr Calvillo, scheduled for Apr 11 at 1:15p 4. L1 compression fx - has been in rehab with some improved mobility, but still limited - TLSO brace with any activity x 12 weeks, - pain reasonably well controlled at this time 5. NHP on discharge
[2018-03-29] MEDS: cefTRIAXone(*) 1 GM in NS 0.9% 50 ML* 50 ML IVPB SCH (12:45)
[2018-03-29] MEDS: fentaNYL PATCH 12 MCG/HR TRANSDERM SCH (16:57)
[2018-03-29] MEDS: fentaNYL PATCH 25 MCG/HR TRANSDERM SCH (16:58)
[2018-03-29] MEDS: Rivaroxaban TAB(*) 20 MG TAB PO SCH (16:59)
[2018-03-29] MEDS: Atorvastatin* 40 MG TAB PO SCH (16:59)
[2018-03-29] MEDS: Tamsulosin CAP* 0.4 MG PO SCH (22:21)
[2018-03-29] MEDS: Lidocaine Patch REMOVE* 1 NOTE MISC PATCH OFF SCH (22:31)
[2018-03-30] MEDS: oxyCODONE TAB* 5 MG TAB PO PRN ×3 (03:17→21:54)
[2018-03-30 06:18] LABS: Hematocrit 24 % (35-47); Mean Corpuscular HGB Conc 33 g/dl (31-36); Mean Corpuscular Hemoglobin 34 pg (27-31); Mean Corpuscular Volume 104 fL (80-97); Mean Platelet Volume 8.2 fL (7.4-10.4); Platelet Count 101 10^3/ul (150-450); Red Blood Count 2.35 10^6/ul (4.00-5.40); Red Cell Distribution Width 27 % (10.5-15)
[2018-03-30 06:35] LABS: Albumin 3.1 g/dL (3.2-5.2); Albumin/Globulin Ratio 1.4 (1-3); BUN/Creatinine Ratio 38.7 (8-20); Calcium 9.3 mg/dL (8.6-10.3); EGFR African American 114.8 (>60); EGFR Non-African American 94.9 (>60); Globulin 2.2 g/dL (2-4); Potassium 4.2 mmol/L (3.5-5.0); Total Bilirubin 0.5 mg/dL (0.2-1.0); Total Protein 5.3 g/dL (6.4-8.9)
[2018-03-30 06:40] LABS: ABS Basophils 0 10^3/ul (0-0.2); ABS Eosinophils 0 10^3/ul (0-0.6); ABS Lymphocytes 0.5 10^3/ul (1.0-4.8); ABS Monocytes 1.1 10^3/ul (0-0.8); ABS Neutrophils 13.4 10^3/ul (1.5-7.7)
[2018-03-30 06:42] LABS: Immature Granulocytes 1 % (0-9); Lymphocytes % 2 %; Monocytes % 5 %; Myelocytes % 1 % (0-1); Neutrophil % 92 %; Nucleated Red Blood Cells/100 3 (0-0); Polychromasia 1+
[2018-03-30] MEDS: fentaNYL Patch Check Q Shift 1 NOTE FOLLOW UP SCH ×2 (07:11→19:11)
[2018-03-30] MEDS: Tiotropium CAP.INH* CAP.INH/18 MCG (USE ORDER SET !) INH SCH (07:33)
[2018-03-30] MEDS: Mometasone/Formoter 200/5 MDI INH PRN ×2 (07:33→19:26)
[2018-03-30] MEDS: methylPREDNISolone 125 MG* 2 ML VIAL IV SCH (08:02)
[2018-03-30] MEDS: Furosemide TAB* 20 MG PO SCH (08:02)
[2018-03-30] MEDS: Omeprazole CAP (NF) 20 MG CAP.DR PO SCH (08:02)
[2018-03-30] MEDS: Diltiazem CD CAP* 180 MG PO SCH (08:02)
[2018-03-30] MEDS: Cholecalciferol TAB* 1000 UNITS PO SCH (08:02)
[2018-03-30] MEDS: Potassium Chlor TAB* 20 MEQ TAB.ER PO SCH (08:02)
[2018-03-30] MEDS: Lidocaine PATCH 5%* 1 PATCH TRANSDERM SCH (08:03)
[2018-03-30] MEDS: CMC: Calcitonin NASAL(NF) 200 UNITS/SPRAY NASAL.SPR ALT NARE SCH (08:03)
[2018-03-30] MEDS: Azithromycin IV(*) 250 MG in NS 0.9% 250 ML* 250 ML IVPB SCH (11:02)
[2018-03-30] MEDS: cefTRIAXone(*) 1 GM in NS 0.9% 50 ML* 50 ML IVPB SCH (12:46)
--- NOTE | 2018-03-30 12:54 | PN ---
Progress Note - Progress Note Date of Service: 03/30/18 SOAP: Subjective: []Better, breathing is better today and respiratory reported less need for nebs. Eating well and wearing back brace. Wants placement at [facility]. Acetaminophen (Tylenol Tab*) 650 mg PO Q4H PRN PRN Reason: pain/fever Albuterol/Ipratropium (Duoneb (Albuterol 2.5 Mg/Ipratropium 0.5 Mg)) 1 neb INH Q4H PRN PRN Reason: SOB/WHEEZING Atorvastatin Calcium (Lipitor*) 40 mg PO QPM [facility] Last Admin: 03/29/18 16:59 Dose: 40 mg Calcitonin [place] (Fortical(Nr)) 200 units ALT NARE DAILY [facility]; Protocol Last Admin: 03/30/18 08:03 Dose: Not Given Cholecalciferol (Vitamin D Tab*) 1,000 units PO QAM [facility] Last Admin: 03/30/18 08:02 Dose: 1,000 units Device (Tiotropium Inhaler Device*) 1 each .SEE ORDER .USE w/ SPIRIVA CAPS [facility] Diltiazem HCl (Cardizem Cd Cap*) 360 mg PO QAM [facility] Last Admin: 03/30/18 08:02 Dose: 360 mg Docusate Sodium (Colace Cap*) 100 mg PO BID PRN PRN Reason: CONSTIPATION Last Admin: 03/27/18 20:37 Dose: 100 mg Fentanyl (Duragesic Patch 12 Mcg/Hr *) 12 mcg TRANSDERM Q72H [facility] Last Admin: 03/29/18 16:57 Dose: 12 mcg Fentanyl (Duragesic Patch 25 Mcg/Hr*) 25 mcg TRANSDERM Q72H [facility] Last Admin: 03/29/18 16:58 Dose: 25 mcg Furosemide (Lasix Tab*) 20 mg PO DAILY [facility] Last Admin: 03/30/18 08:02 Dose: 20 mg Ceftriaxone Sodium 1 gm/ (Sodium Chloride) 50 mls @ 200 mls/hr IVPB Q24H [facility] Last Admin: 03/30/18 12:46 Dose: 200 mls/hr Azithromycin 250 mg/ Sodium (Chloride) 250 mls @ 250 mls/hr IVPB Q24H [facility] Last Admin: 03/30/18 11:02 Dose: 250 mls/hr Lactulose (Lactulose*) 30 ml PO TID PRN PRN Reason: CONSTIPATION Last Admin: 03/27/18 08:12 Dose: 30 ml Lidocaine (Lidoderm 5% Patch*) 1 patch TRANSDERM DAILY [facility] Last Admin: 03/30/18 08:03 Dose: 1 patch Methylprednisolone Sodium Succinate (Solu-Medrol 125mg *) 60 mg IV DAILY [facility] Last Admin: 03/30/18 08:02 Dose: 60 mg Mometasone Furoate/Formoterol Fumar (Dulera 200/5 Mdi*) 1 puff INH BID PRN; Protocol PRN Reason: SHORTNESS OF BREATH Last Admin: 03/30/18 07:33 Dose: 1 puff Montelukast Sodium (Singulair Tab*) 10 mg PO DAILY PRN PRN Reason: Allergy Symptoms Omeprazole (Prilosec Cap*) 20 mg PO DAILY@0730 [facility] Last Admin: 03/30/18 08:02 Dose: 20 mg Oxycodone HCl (Roxycodone Tab*) 5 mg PO Q4H PRN PRN Reason: pain Last Admin: 03/30/18 03:17 Dose: 5 mg Pharmacy Profile Note (Lidocaine Patch Remove*) 1 note PATCH OFF 2100 [facility] Last Admin: 03/29/18 22:31 Dose: 1 note Pharmacy Profile Note (Fentanyl Patch Check Q Shift) 1 note FOLLOW UP 0700, 1900 [facility] Last Admin: 03/30/18 07:11 Dose: 1 note Polyethylene Glycol/Electrolytes (Miralax*) 17 gm PO DAILY PRN PRN Reason: CONSTIPATION Potassium Chloride (Klor Con Er Tab*) 20 meq PO BID [facility] Last Admin: 03/30/18 08:02 Dose: 20 meq Prochlorperazine Edisylate (Compazine Inj*) 10 mg IV Q6H PRN PRN Reason: NAUSEA Rivaroxaban (Xarelto(*)) 20 mg PO QPM [facility] Last Admin: 03/29/18 16:59 Dose: 20 mg Tamsulosin HCl (Flomax Cap*) 0.4 mg PO BEDTIME [facility] Last Admin: 03/29/18 22:21 Dose: 0.4 mg Tiotropium [place] (Spiriva Cap.Inh*) 1 cap INH DAILY [facility] Last Admin: 03/30/18 07:33 Dose: 1 cap Objective: HEENT: MMM, no thrush CV: RRR, no m/r/g Resp: diffuse rhonchi and wheezing, no change Abd: soft, nonTTP, obese MK: difficult time turning in bed, diffuse weakness Ext: no edema Skin: no rashes Assessment: [72 yo female with limited stage small cell lung CA who recently completed chemotherapy and radiation. Admission to [facility] 02/2018 with L1 compression fracture, discharged to [facility] for rehab. Re-admission for COPD. Today with slow improvement. Plan: [1. COPD exacerbation: - no obvious PNA, but cont abx coverage with ceftriaxone and stop Azithromycin - Stop Solumedrol, Prednisone 40 mg po daily - DuoNebsonly PRN - cont Breo/Spiriva 2. Small cell lung CA - completed therapy - pending post treatment restaging 3. Urinary retention - Mckeon catheter remains in place, failed multiple prior attempts to remove - needs follow up with Dr Calvillo, scheduled for Apr 11 at 1:15p -Continue FlowMax 4. L1 compression fx - has been in rehab with some improved mobility, but still limited - TLSO brace with any activity x 12 weeks, - pain reasonably well controlled at this time, continue Fentanyl. 5. Simplify Medication: - Stop Compazine, not using - Stop Miralax, use Lactulose - Potassium to 20 mg daily 6. Hemolytic anemia, Ruby negative - Folic Acid 1 G daily, further evaluation as out patient 7. NHP on discharge, [facility] if possible
[2018-03-30] MEDS: Atorvastatin* 40 MG TAB PO SCH (17:35)
[2018-03-30] MEDS: Rivaroxaban TAB(*) 20 MG TAB PO SCH (17:35)
[2018-03-30] MEDS: Albuterol/Ipratropium NEB.SOL* Albuterol 2.5 MG/Ipratropium 0.5 MG 3 ML INH PRN (19:24)
[2018-03-30] MEDS: Tamsulosin CAP* 0.4 MG PO SCH (21:54)
[2018-03-30] MEDS: Lidocaine Patch REMOVE* 1 NOTE MISC PATCH OFF SCH (22:32)
[2018-03-31] MEDS: oxyCODONE TAB* 5 MG TAB PO PRN ×4 (04:06→23:54)
[2018-03-31] MEDS: fentaNYL Patch Check Q Shift 1 NOTE FOLLOW UP SCH ×2 (06:27→18:12)
[2018-03-31] MEDS: Omeprazole CAP (NF) 20 MG CAP.DR PO SCH (06:52)
[2018-03-31] MEDS: Mometasone/Formoter 200/5 MDI INH PRN (07:17)
[2018-03-31] MEDS: Tiotropium CAP.INH* CAP.INH/18 MCG (USE ORDER SET !) INH SCH (07:20)
[2018-03-31] MEDS: predniSONE TAB* 20 MG PO SCH (09:12)
[2018-03-31] MEDS: Cholecalciferol TAB* 1000 UNITS PO SCH (09:12)
[2018-03-31] MEDS: Furosemide TAB* 20 MG PO SCH (09:12)
[2018-03-31] MEDS: Potassium Chlor TAB* 20 MEQ TAB.ER PO SCH (09:12)
[2018-03-31] MEDS: Diltiazem CD CAP* 180 MG PO SCH (09:13)
[2018-03-31] MEDS: Lidocaine PATCH 5%* 1 PATCH TRANSDERM SCH (09:14)
[2018-03-31] MEDS: cefTRIAXone(*) 1 GM in NS 0.9% 50 ML* 50 ML IVPB SCH (13:19)
--- NOTE | 2018-03-31 13:37 | PN ---
Progress Note - Progress Note Date of Service: 03/31/18 SOAP: Subjective: []Feeling well, though still gets winded easily. Coughing with deep breaths and trying to do inspirometer. Still feels like she feels best with nebs. Medications: Acetaminophen (Tylenol Tab*) 650 mg PO Q4H PRN PRN Reason: pain/fever Albuterol/Ipratropium (Duoneb (Albuterol 2.5 Mg/Ipratropium 0.5 Mg)) 1 neb INH Q4H PRN PRN Reason: SOB/WHEEZING Last Admin: 03/30/18 19:24 Dose: 1 neb Atorvastatin Calcium (Lipitor*) 40 mg PO QPM [facility] Last Admin: 03/30/18 17:35 Dose: 40 mg Calcitonin [place] (Fortical(Nr)) 200 units ALT NARE DAILY [facility]; Protocol Stop: 04/11/18 23:00 Last Admin: 03/30/18 08:03 Dose: Not Given Cholecalciferol (Vitamin D Tab*) 1,000 units PO QAM [facility] Last Admin: 03/31/18 09:12 Dose: 1,000 units Device (Tiotropium Inhaler Device*) 1 each .SEE ORDER .USE w/ SPIRIVA CAPS [facility] Diltiazem HCl (Cardizem Cd Cap*) 360 mg PO QAM [facility] Last Admin: 03/31/18 09:13 Dose: 360 mg Docusate Sodium (Colace Cap*) 100 mg PO BID PRN PRN Reason: CONSTIPATION Last Admin: 03/27/18 20:37 Dose: 100 mg Fentanyl (Duragesic Patch 12 Mcg/Hr *) 12 mcg TRANSDERM Q72H [facility] Last Admin: 03/29/18 16:57 Dose: 12 mcg Fentanyl (Duragesic Patch 25 Mcg/Hr*) 25 mcg TRANSDERM Q72H [facility] Last Admin: 03/29/18 16:58 Dose: 25 mcg Furosemide (Lasix Tab*) 20 mg PO DAILY [facility] Last Admin: 03/31/18 09:12 Dose: 20 mg Ceftriaxone Sodium 1 gm/ (Sodium Chloride) 50 mls @ 200 mls/hr IVPB Q24H [facility] Last Admin: 03/31/18 13:19 Dose: 200 mls/hr Lactulose (Lactulose*) 30 ml PO TID PRN PRN Reason: CONSTIPATION Last Admin: 03/27/18 08:12 Dose: 30 ml Lidocaine (Lidoderm 5% Patch*) 1 patch TRANSDERM DAILY [facility] Last Admin: 03/31/18 09:14 Dose: 1 patch Mometasone Furoate/Formoterol Fumar (Dulera 200/5 Mdi*) 1 puff INH BID PRN; Protocol PRN Reason: SHORTNESS OF BREATH Last Admin: 03/31/18 07:17 Dose: 1 puff Montelukast Sodium (Singulair Tab*) 10 mg PO DAILY PRN PRN Reason: Allergy Symptoms Omeprazole (Prilosec Cap*) 20 mg PO DAILY@0730 [facility] Last Admin: 03/31/18 06:52 Dose: 20 mg Oxycodone HCl (Roxycodone Tab*) 5 mg PO Q4H PRN PRN Reason: pain Last Admin: 03/31/18 09:12 Dose: 5 mg Pharmacy Profile Note (Lidocaine Patch Remove*) 1 note PATCH OFF 2100 [facility] Last Admin: 03/30/18 22:32 Dose: 1 note Pharmacy Profile Note (Fentanyl Patch Check Q Shift) 1 note FOLLOW UP 0700, 1900 [facility] Last Admin: 03/31/18 06:27 Dose: 1 note Potassium Chloride (Klor Con Er Tab*) 20 meq PO DAILY [facility] Last Admin: 03/31/18 09:12 Dose: 20 meq Prednisone (Deltasone Tab*) 40 mg PO DAILY [facility] Last Admin: 03/31/18 09:12 Dose: 40 mg Rivaroxaban (Xarelto(*)) 20 mg PO QPM [facility] Last Admin: 03/30/18 17:35 Dose: 20 mg Tamsulosin HCl (Flomax Cap*) 0.4 mg PO BEDTIME [facility] Last Admin: 03/30/18 21:54 Dose: 0.4 mg Tiotropium [place] (Spiriva Cap.Inh*) 1 cap INH DAILY [facility] Last Admin: 03/31/18 07:20 Dose: 1 cap Objective: [] Vital Signs Temp Pulse Resp BP Pulse Ox 98.3 F 77 17 141/60 94 03/31/18 11:11 03/31/18 11:11 03/31/18 11:11 03/31/18 11:11 03/31/18 11:11 A&Ox3, EOMI, neuro grossly non-focal Back brace in place, sitting upright in no acute distress HRR, SR on tele, occ. ectopy with no sustained arrhythmias LS with rhonchi bilat., harsh wet cough, no wheeze noted Obese Assessment: []8 yo female with history of SCLC s/p definitive therapy with plan for restaging scans next week, admitted with COPD exacerbation with cont.'d improvement. At this time she is ready for d/c and we are awaiting authorization for d/c to [facility]. Plan: []d/c tele Plan pred. taper currently on 40 mg down to 30 mg / Try increasing dulera to 2 puffs BID (400/10), and will cont. on d/c in place of spiriva Dispo: hopeful for d/c to SNF tomorrow
[2018-03-31] MEDS: CMC: Calcitonin NASAL(NF) 200 UNITS/SPRAY NASAL.SPR ALT NARE SCH (13:59)
[2018-03-31] MEDS: Atorvastatin* 40 MG TAB PO SCH (18:12)
[2018-03-31] MEDS: Rivaroxaban TAB(*) 20 MG TAB PO SCH (18:12)
[2018-03-31] MEDS: Tamsulosin CAP* 0.4 MG PO SCH (20:18)
[2018-03-31] MEDS: Lidocaine Patch REMOVE* 1 NOTE MISC PATCH OFF SCH (20:18)
[2018-03-31] MEDS: Docusate CAP* 100 MG PO PRN (23:55)
[2018-04-01] MEDS ORDERED: LORazepam TAB(*) 0.5 MG PO ONE (01:58)
[2018-04-01] MEDS: Albuterol/Ipratropium NEB.SOL* Albuterol 2.5 MG/Ipratropium 0.5 MG 3 ML INH PRN (02:26)
[2018-04-01] MEDS: fentaNYL Patch Check Q Shift 1 NOTE FOLLOW UP SCH ×2 (07:13→19:29)
[2018-04-01] MEDS: CMC: Calcitonin NASAL(NF) 200 UNITS/SPRAY NASAL.SPR ALT NARE SCH (07:27)
[2018-04-01] MEDS: Furosemide TAB* 20 MG PO SCH (07:29)
[2018-04-01] MEDS: predniSONE TAB* 20 MG PO SCH (07:29)
[2018-04-01] MEDS: Lidocaine PATCH 5%* 1 PATCH TRANSDERM SCH (07:29)
[2018-04-01] MEDS: Cholecalciferol TAB* 1000 UNITS PO SCH (07:29)
[2018-04-01] MEDS: Potassium Chlor TAB* 20 MEQ TAB.ER PO SCH (07:29)
[2018-04-01] MEDS: Diltiazem CD CAP* 180 MG PO SCH (07:29)
[2018-04-01] MEDS: Docusate CAP* 100 MG PO PRN (07:29)
[2018-04-01] MEDS: Omeprazole CAP (NF) 20 MG CAP.DR PO SCH (07:29)
[2018-04-01] MEDS: Tiotropium CAP.INH* CAP.INH/18 MCG (USE ORDER SET !) INH SCH (07:30)
[2018-04-01] MEDS: Mometasone/Formoter 200/5 MDI INH PRN (07:30)
[2018-04-01] MEDS ORDERED: LORazepam TAB(*) 0.5 MG PO PRN (11:04)
[2018-04-01] MEDS ORDERED: Simethicone TAB* 80 MG TAB.CHEW PO PRN (11:04)
--- NOTE | 2018-04-01 11:34 | DS ---
- Discharge Summary Admission Date: 03/26/18 Discharge Date: 04/02/18 Discharge Diagnosis: 1. COPD exacerbation: improved, will be d/c'd off abx. with cont.'d inhalers and supplemental O2 2. SCLC: s/p definitive therapy with restaging PET scheduled 04/07 3. Urinary retention: failed discontinuation of arredondo several times, will be seen by urology 04/11 4. Anemia: question of hemolysis, verenice negative, further eval. as outpatient, repeat CBC 04/07 Discharge Medications: Medication Instructions Recorded Confirmed Type Atorvastatin* [Lipitor 40 MG*] 40 mg PO QAM 11/09/14 03/26/18 History Montelukast Sodium TAB* [Singulair 10 mg PO DAILY PRN 11/09/14 03/26/18 History 10 MG TAB*] Cholecalciferol TAB* [Vitamin D 1,000 unit PO QAM 09/17/17 03/26/18 History TAB*] Rivaroxaban TAB(*) [Xarelto 20 mg] 20 mg PO QPM 09/17/17 03/26/18 History Tiotropium CAP.INH* [Spiriva 1 cap.inh INH 1230 09/17/17 03/26/18 History CAP.INH*] dilTIAZem 360 MG 24HR ER (NF) 360 mg PO QAM 09/17/17 03/26/18 History [Diltiazem 360 mg 24Hr ER] Acetaminophen TAB* [Tylenol TAB*] 650 mg PO Q4H PRN tab 01/06/18 03/26/18 Rx Omeprazole CAP (NF) [Prilosec CAP* 20 mg PO DAILY@0730 #30 cap.dr 01/06/1803/26 Rx 20 MG] Potassium Chlor TAB* [Potassium 20 meq PO DAILY #30 tab.er 01/06/18 03/26/18 Rx Chlor TAB 20 MEQ*] Furosemide TAB* [Lasix TAB*] 20 mg PO DAILY 02/10/18 03/26/18 History Albuterol/Ipratropium NEB.PARVEEN* 1 neb INH Q4H PRN #180 neb.soln 02/18/18 Rx [Duoneb (Albuterol 2.5 MG/Ipratropium 0.5 MG)] Lidocaine PATCH 5%* [Lidoderm 5% 1 patch TRANSDERM DAILY #30 patch 02/18/1805/13 Rx Patch*] Loperamide CAP* [Imodium CAP*] 2 mg PO .SEE DIRECTIONS PRN cap 02/18/18 Rx Tamsulosin CAP* [Flomax CAP*] 0.4 mg PO BEDTIME #30 cap 02/18/18 03/26/18 Rx oxyCODONE TAB* [Roxycodone TAB 5 5 mg PO Q6H PRN #120 tab MDD 4 tabs 02/18/18 Rx mg*] Calcitonin [place](NF) [Fortical(NR)] 200 units ALT NARE DAILY nasal.spr 03/26/18 Rx Docusate CAP* [Colace Cap*] 100 mg PO BID PRN cap 03/12/18 03/26/18 Rx Lactulose* 30 ml PO TID PRN udc 03/12/18 03/26/18 Rx Polyethylene Glycol 3350* 17 gm PO DAILY PRN packet 03/12/18 03/26/18 Rx [Miralax*] fentaNYL PATCH 12 MCG/HR * 12 mcg TRANSDERM Q72H patch 03/12/18 03/26/18 Rx [Duragesic Patch 12 Mcg/Hr *] fentaNYL PATCH 25 MCG/HR* 25 mcg TRANSDERM Q72H patch 03/12/18 03/26/18 Rx [Duragesic PATCH 25 Mcg/Hr*] LORazepam TAB(*) [Ativan 0.5 MG 0.25 mg PO Q6H PRN #20 tab MDD 2 04/01/18 Rx TAB (*)] tabs Mometasone/Formoter 200/5 MDI* 1 puff INH BID PRN #1 mdi 04/01/18 Rx [Dulera 200/5 MDI*] Simethicone TAB* [Mylicon TAB*] 80 mg PO ACHS PRN #120 tab.chew 04/01/18 Rx predniSONE TAB* [Deltasone 20 MG 40 mg PO DAILY 17 Days tab 04/01/18 Rx TAB*] Hospital Course: Please see admission note for full H&P, briefly however, Mrs. 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 She was admitted to SNF on 03/01/18 following an inpt. stay for rehab d/t lumbar compression fracture (TLSO brace in place) and presented to [facility] ER on 03/26/18 with progressive SOB, increased O2 needs, and a cough. In the ER she was hypoxic however improved with non-rebreather mask, nebs, and initiation of antibiotics. She was admitted for COPD exacerbation and IV abx. and steroids. She has made continued improvement and as of 03/30 was transitioned to PO steroids. She had an isolated episode of chest pain last night with associated gas that appears to be an anxiety attack (ekg with bigeminey, however symptoms resolved with BM and ativan). She is easily winded still, however is at her baseline and feels ready for discharge back to SNF. She will be discharged to [facility] for cont.'d rehab and will f/u with the oncology practice next week. On d/c she will have a steroid taper as well as PRN simethicone and anxiety medications. During her admission Dulera was increased to maximum recommended and she will be d/c'd with cont'd nebs PRN. Plan of care reviewed at length with all questions answered. >40 min spent with >50% face to face counseling
[2018-04-01] MEDS: cefTRIAXone(*) 1 GM in NS 0.9% 50 ML* 50 ML IVPB SCH (12:06)
[2018-04-01] MEDS: fentaNYL PATCH 12 MCG/HR TRANSDERM SCH (16:53)
[2018-04-01] MEDS: Rivaroxaban TAB(*) 20 MG TAB PO SCH (16:53)
[2018-04-01] MEDS: Atorvastatin* 40 MG TAB PO SCH (16:53)
[2018-04-01] MEDS: fentaNYL PATCH 25 MCG/HR TRANSDERM SCH (16:55)
--- NOTE | 2018-04-01 18:16 | PN ---
Progress Note - Progress Note Date of Service: 04/01/18 SOAP: Subjective: []Seen and examined this AM at approx. 11am. Initially planned for d/c, however due to insurance will be delayed overnight. Feeling well. Last night had anxiety like attack with significant gas. No further discomfort and VSS. Denies worsening breathing and feels very ready to go. Feels like maybe part of it was that she didn't get to move as much yesterday, "it was just too busy here." Medications: Acetaminophen (Tylenol Tab*) 650 mg PO Q4H PRN PRN Reason: pain/fever Albuterol/Ipratropium (Duoneb (Albuterol 2.5 Mg/Ipratropium 0.5 Mg)) 1 neb INH Q4H PRN PRN Reason: SOB/WHEEZING Last Admin: 04/01/18 02:26 Dose: 1 neb Atorvastatin Calcium (Lipitor*) 40 mg PO QPM [facility] Last Admin: 04/01/18 16:53 Dose: 40 mg Calcitonin [place] (Fortical(Nr)) 200 units ALT NARE DAILY [facility]; Protocol Stop: 04/11/18 23:00 Last Admin: 04/01/18 07:27 Dose: 200 units Cholecalciferol (Vitamin D Tab*) 1,000 units PO QAM [facility] Last Admin: 04/01/18 07:29 Dose: 1,000 units Device (Tiotropium Inhaler Device*) 1 each .SEE ORDER .USE w/ SPIRIVA CAPS [facility] Diltiazem HCl (Cardizem Cd Cap*) 360 mg PO QAM [facility] Last Admin: 04/01/18 07:29 Dose: 360 mg Docusate Sodium (Colace Cap*) 100 mg PO BID PRN PRN Reason: CONSTIPATION Last Admin: 04/01/18 07:29 Dose: 100 mg Fentanyl (Duragesic Patch 12 Mcg/Hr *) 12 mcg TRANSDERM Q72H [facility] Last Admin: 04/01/18 16:53 Dose: 12 mcg Fentanyl (Duragesic Patch 25 Mcg/Hr*) 25 mcg TRANSDERM Q72H [facility] Last Admin: 04/01/18 16:55 Dose: 25 mcg Furosemide (Lasix Tab*) 20 mg PO DAILY [facility] Last Admin: 04/01/18 07:29 Dose: 20 mg Heparin Sodium (Porcine) (Heparin Flush Port (Ivad)) 5 ml FLUSH DAILY [facility]; Protocol Ceftriaxone Sodium 1 gm/ (Sodium Chloride) 50 mls @ 200 mls/hr IVPB Q24H [facility] Last Admin: 04/01/18 12:06 Dose: 200 mls/hr Lactulose (Lactulose*) 30 ml PO TID PRN PRN Reason: CONSTIPATION Last Admin: 03/27/18 08:12 Dose: 30 ml Lidocaine (Lidoderm 5% Patch*) 1 patch TRANSDERM DAILY [facility] Last Admin: 04/01/18 07:29 Dose: 1 patch Lorazepam (Ativan Tab(*)) 0.25 mg PO Q6H PRN PRN Reason: ANXIETY Mometasone Furoate/Formoterol Fumar (Dulera 200/5 Mdi*) 1 puff INH BID PRN; Protocol PRN Reason: SHORTNESS OF BREATH Last Admin: 04/01/18 07:30 Dose: 1 puff Montelukast Sodium (Singulair Tab*) 10 mg PO DAILY PRN PRN Reason: Allergy Symptoms Omeprazole (Prilosec Cap*) 20 mg PO DAILY@0730 [facility] Last Admin: 04/01/18 07:29 Dose: 20 mg Oxycodone HCl (Roxycodone Tab*) 5 mg PO Q4H PRN PRN Reason: pain Last Admin: 03/31/18 23:54 Dose: 5 mg Pharmacy Profile Note (Lidocaine Patch Remove*) 1 note PATCH OFF 2100 [facility] Last Admin: 03/31/18 20:18 Dose: 1 note Pharmacy Profile Note (Fentanyl Patch Check Q Shift) 1 note FOLLOW UP 0700, 1900 [facility] Last Admin: 04/01/18 07:13 Dose: 1 note Potassium Chloride (Klor Con Er Tab*) 20 meq PO DAILY [facility] Last Admin: 04/01/18 07:29 Dose: 20 meq Prednisone (Deltasone Tab*) 40 mg PO DAILY [facility] Last Admin: 04/01/18 07:29 Dose: 40 mg Rivaroxaban (Xarelto(*)) 20 mg PO QPM [facility] Last Admin: 04/01/18 16:53 Dose: 20 mg Simethicone (Mylicon Tab*) 80 mg PO Q6H PRN PRN Reason: gas Tamsulosin HCl (Flomax Cap*) 0.4 mg PO BEDTIME [facility] Last Admin: 03/31/18 20:18 Dose: 0.4 mg Tiotropium [place] (Spiriva Cap.Inh*) 1 cap INH DAILY [facility] Last Admin: 04/01/18 07:30 Dose: 1 cap Objective: [] Vital Signs Temp Pulse Resp BP Pulse Ox 98.1 F 73 18 126/72 95 04/01/18 15:55 04/01/18 15:55 04/01/18 16:55 04/01/18 15:55 04/01/18 15:55 A&Ox3, EOMI, neuro grossly non-focal HRR, S1S2 - EKG from last night reviewed LS rhonchous bilat. with even and non-labored resp., no wheeze noted Obese TLSO in place Assessment: []72 yo female with locally advanced SCLC s/p defnitive therapy admitted d/t COPD exacerbation now ready for d/c awaiting placement. Plan: []Add ativan and simethicone PRN Hopeful for d/c tomorrow AM
[2018-04-01] MEDS: oxyCODONE TAB* 5 MG TAB PO PRN (19:30)
[2018-04-01] MEDS: Tamsulosin CAP* 0.4 MG PO SCH (20:37)
[2018-04-01] MEDS: Lidocaine Patch REMOVE* 1 NOTE MISC PATCH OFF SCH (20:39)
[2018-04-02] MEDS: oxyCODONE TAB* 5 MG TAB PO PRN ×3 (03:55→17:20)
[2018-04-02] MEDS: fentaNYL Patch Check Q Shift 1 NOTE FOLLOW UP SCH ×2 (06:42→18:48)
[2018-04-02] MEDS: CMC: Calcitonin NASAL(NF) 200 UNITS/SPRAY NASAL.SPR ALT NARE SCH (07:46)
[2018-04-02] MEDS: Lidocaine PATCH 5%* 1 PATCH TRANSDERM SCH (07:47)
[2018-04-02] MEDS: predniSONE TAB* 20 MG PO SCH (07:50)
[2018-04-02] MEDS: Diltiazem CD CAP* 180 MG PO SCH (07:50)
[2018-04-02] MEDS: Potassium Chlor TAB* 20 MEQ TAB.ER PO SCH (07:50)
[2018-04-02] MEDS: Cholecalciferol TAB* 1000 UNITS PO SCH (07:50)
[2018-04-02] MEDS: Omeprazole CAP (NF) 20 MG CAP.DR PO SCH (07:50)
[2018-04-02] MEDS: Furosemide TAB* 20 MG PO SCH (07:50)
[2018-04-02] MEDS: Mometasone/Formoter 200/5 MDI INH PRN (07:54)
[2018-04-02] MEDS: Tiotropium CAP.INH* CAP.INH/18 MCG (USE ORDER SET !) INH SCH (07:54)
--- NOTE | 2018-04-02 10:52 | PN ---
Progress Note - Progress Note Date of Service: 04/02/18 SOAP: Subjective: awaiting insurance auth for SNF. feels ok this am. breathing better. Objective: Vital Signs Temp Pulse Resp BP Pulse Ox 98.1 F 71 18 128/69 92 04/02/18 07:22 04/02/18 07:56 04/02/18 09:21 04/02/18 07:22 04/02/18 08:00 sitting up in nad perr eomi op moist diff mild rhonchi, no wheeze s1 s2 nl obese nt +bs 1+ le edema A+O x 3, nonfocal neurological exam Acetaminophen (Tylenol Tab*) 650 mg PO Q4H PRN PRN Reason: pain/fever Albuterol/Ipratropium (Duoneb (Albuterol 2.5 Mg/Ipratropium 0.5 Mg)) 1 neb INH Q4H PRN PRN Reason: SOB/WHEEZING Last Admin: 04/01/18 02:26 Dose: 1 neb Atorvastatin Calcium (Lipitor*) 40 mg PO QPM [facility] Last Admin: 04/01/18 16:53 Dose: 40 mg Calcitonin [place] (Fortical(Nr)) 200 units ALT NARE DAILY [facility]; Protocol Stop: 04/11/18 23:00 Last Admin: 04/02/18 07:46 Dose: 200 units Cholecalciferol (Vitamin D Tab*) 1,000 units PO QAM [facility] Last Admin: 04/02/18 07:50 Dose: 1,000 units Device (Tiotropium Inhaler Device*) 1 each .SEE ORDER .USE w/ SPIRIVA CAPS [facility] Diltiazem HCl (Cardizem Cd Cap*) 360 mg PO QAM [facility] Last Admin: 04/02/18 07:50 Dose: 360 mg Docusate Sodium (Colace Cap*) 100 mg PO BID PRN PRN Reason: CONSTIPATION Last Admin: 04/01/18 07:29 Dose: 100 mg Fentanyl (Duragesic Patch 12 Mcg/Hr *) 12 mcg TRANSDERM Q72H [facility] Last Admin: 04/01/18 16:53 Dose: 12 mcg Fentanyl (Duragesic Patch 25 Mcg/Hr*) 25 mcg TRANSDERM Q72H [facility] Last Admin: 04/01/18 16:55 Dose: 25 mcg Furosemide (Lasix Tab*) 20 mg PO DAILY [facility] Last Admin: 04/02/18 07:50 Dose: 20 mg Heparin Sodium (Porcine) (Heparin Flush Port (Ivad)) 5 ml FLUSH DAILY [facility]; Protocol Last Admin: 04/02/18 07:48 Dose: 5 ml Ceftriaxone Sodium 1 gm/ (Sodium Chloride) 50 mls @ 200 mls/hr IVPB Q24H [facility] Last Admin: 04/01/18 12:06 Dose: 200 mls/hr Lactulose (Lactulose*) 30 ml PO TID PRN PRN Reason: CONSTIPATION Last Admin: 03/27/18 08:12 Dose: 30 ml Lidocaine (Lidoderm 5% Patch*) 1 patch TRANSDERM DAILY [facility] Last Admin: 04/02/18 07:47 Dose: 1 patch Lorazepam (Ativan Tab(*)) 0.25 mg PO Q6H PRN PRN Reason: ANXIETY Mometasone Furoate/Formoterol Fumar (Dulera 200/5 Mdi*) 1 puff INH BID PRN; Protocol PRN Reason: SHORTNESS OF BREATH Last Admin: 04/02/18 07:54 Dose: 1 puff Montelukast Sodium (Singulair Tab*) 10 mg PO DAILY PRN PRN Reason: Allergy Symptoms Omeprazole (Prilosec Cap*) 20 mg PO DAILY@0730 [facility] Last Admin: 04/02/18 07:50 Dose: 20 mg Oxycodone HCl (Roxycodone Tab*) 5 mg PO Q4H PRN PRN Reason: pain Last Admin: 04/02/18 09:21 Dose: 5 mg Pharmacy Profile Note (Lidocaine Patch Remove*) 1 note PATCH OFF 2100 [facility] Last Admin: 04/01/18 20:39 Dose: 1 note Pharmacy Profile Note (Fentanyl Patch Check Q Shift) 1 note FOLLOW UP 0700, 1900 [facility] Last Admin: 04/02/18 06:42 Dose: 1 note Potassium Chloride (Klor Con Er Tab*) 20 meq PO DAILY [facility] Last Admin: 04/02/18 07:50 Dose: 20 meq Prednisone (Deltasone Tab*) 40 mg PO DAILY [facility] Last Admin: 04/02/18 07:50 Dose: 40 mg Rivaroxaban (Xarelto(*)) 20 mg PO QPM [facility] Last Admin: 04/01/18 16:53 Dose: 20 mg Simethicone (Mylicon Tab*) 80 mg PO Q6H PRN PRN Reason: gas Tamsulosin HCl (Flomax Cap*) 0.4 mg PO BEDTIME [facility] Last Admin: 04/01/18 20:37 Dose: 0.4 mg Tiotropium [place] (Spiriva Cap.Inh*) 1 cap INH DAILY [facility] Last Admin: 04/02/18 07:54 Dose: 1 cap Assessment: 72 yo F w small cell lung ca sp curative intent treatment and COPD p/w COPD exacerbation, now clinically stable and awaiting placement. Plan: -cont steroids -cont nebs -d/c abx awaiting placement/rehab
[2018-04-02] MEDS: Rivaroxaban TAB(*) 20 MG TAB PO SCH (17:18)
[2018-04-02] MEDS: Atorvastatin* 40 MG TAB PO SCH (17:18)
[2018-04-02] MEDS: Tamsulosin CAP* 0.4 MG PO SCH (20:24)
[2018-04-02] MEDS: Docusate CAP* 100 MG PO PRN (20:24)
[2018-04-02] MEDS: Lidocaine Patch REMOVE* 1 NOTE MISC PATCH OFF SCH (20:25)
[2018-04-03] MEDS: oxyCODONE TAB* 5 MG TAB PO PRN ×3 (02:28→23:43)
[2018-04-03] MEDS: fentaNYL Patch Check Q Shift 1 NOTE FOLLOW UP SCH ×2 (06:53→19:00)
[2018-04-03] MEDS: Tiotropium CAP.INH* CAP.INH/18 MCG (USE ORDER SET !) INH SCH (07:32)
[2018-04-03] MEDS: Mometasone/Formoter 200/5 MDI INH PRN (07:33)
[2018-04-03] MEDS: Diltiazem CD CAP* 180 MG PO SCH (07:54)
[2018-04-03] MEDS: Furosemide TAB* 20 MG PO SCH (07:54)
[2018-04-03] MEDS: Omeprazole CAP (NF) 20 MG CAP.DR PO SCH (07:55)
[2018-04-03] MEDS: Cholecalciferol TAB* 1000 UNITS PO SCH (07:55)
[2018-04-03] MEDS: predniSONE TAB* 20 MG PO SCH (07:55)
[2018-04-03] MEDS: Lidocaine PATCH 5%* 1 PATCH TRANSDERM SCH (07:56)
[2018-04-03] MEDS: CMC: Calcitonin NASAL(NF) 200 UNITS/SPRAY NASAL.SPR ALT NARE SCH (07:56)
[2018-04-03] MEDS: Potassium Chlor TAB* 20 MEQ TAB.ER PO SCH (07:56)
[2018-04-03] MEDS: Atorvastatin* 40 MG TAB PO SCH (17:19)
[2018-04-03] MEDS: Rivaroxaban TAB(*) 20 MG TAB PO SCH (17:19)
[2018-04-03] MEDS: Lidocaine Patch REMOVE* 1 NOTE MISC PATCH OFF SCH (20:55)
[2018-04-03] MEDS: Tamsulosin CAP* 0.4 MG PO SCH (20:55)
[2018-04-04] MEDS: fentaNYL Patch Check Q Shift 1 NOTE FOLLOW UP SCH ×2 (06:59→18:50)
[2018-04-04] MEDS: Tiotropium CAP.INH* CAP.INH/18 MCG (USE ORDER SET !) INH SCH (07:55)
[2018-04-04] MEDS: Mometasone/Formoter 200/5 MDI INH PRN (07:55)
--- NOTE | 2018-04-04 08:32 | PN ---
Progress Note - Progress Note Date of Service: 04/03/18 SOAP: Subjective: []Seen and examined approx. 1100. Feeling very well and hopeful for discharge. IV abx. stopped yesterday and no change since. Medications: Acetaminophen (Tylenol Tab*) 650 mg PO Q4H PRN PRN Reason: pain/fever Albuterol/Ipratropium (Duoneb (Albuterol 2.5 Mg/Ipratropium 0.5 Mg)) 1 neb INH Q4H PRN PRN Reason: SOB/WHEEZING Last Admin: 04/01/18 02:26 Dose: 1 neb Atorvastatin Calcium (Lipitor*) 40 mg PO QPM [facility] Last Admin: 04/03/18 17:19 Dose: 40 mg Calcitonin [place] (Fortical(Nr)) 200 units ALT NARE DAILY [facility]; Protocol Stop: 04/11/18 23:00 Last Admin: 04/03/18 07:56 Dose: 200 units Cholecalciferol (Vitamin D Tab*) 1,000 units PO QAM [facility] Last Admin: 04/03/18 07:55 Dose: 1,000 units Device (Tiotropium Inhaler Device*) 1 each .SEE ORDER .USE w/ SPIRIVA CAPS [facility] Diltiazem HCl (Cardizem Cd Cap*) 360 mg PO QAM [facility] Last Admin: 04/03/18 07:54 Dose: 360 mg Docusate Sodium (Colace Cap*) 100 mg PO BID PRN PRN Reason: CONSTIPATION Last Admin: 04/02/18 20:24 Dose: 100 mg Fentanyl (Duragesic Patch 12 Mcg/Hr *) 12 mcg TRANSDERM Q72H [facility] Last Admin: 04/01/18 16:53 Dose: 12 mcg Fentanyl (Duragesic Patch 25 Mcg/Hr*) 25 mcg TRANSDERM Q72H [facility] Last Admin: 04/01/18 16:55 Dose: 25 mcg Furosemide (Lasix Tab*) 20 mg PO DAILY [facility] Last Admin: 04/03/18 07:54 Dose: 20 mg Heparin Sodium (Porcine) (Heparin Flush Port (Ivad)) 5 ml FLUSH DAILY [facility]; Protocol Last Admin: 04/03/18 08:07 Dose: 5 ml Lactulose (Lactulose*) 30 ml PO TID PRN PRN Reason: CONSTIPATION Last Admin: 03/27/18 08:12 Dose: 30 ml Lidocaine (Lidoderm 5% Patch*) 1 patch TRANSDERM DAILY [facility] Last Admin: 04/03/18 07:56 Dose: 1 patch Lorazepam (Ativan Tab(*)) 0.25 mg PO Q6H PRN PRN Reason: ANXIETY Mometasone Furoate/Formoterol Fumar (Dulera 200/5 Mdi*) 1 puff INH BID PRN; Protocol PRN Reason: SHORTNESS OF BREATH Last Admin: 04/04/18 07:55 Dose: 1 puff Montelukast Sodium (Singulair Tab*) 10 mg PO DAILY PRN PRN Reason: Allergy Symptoms Oxycodone HCl (Roxycodone Tab*) 5 mg PO Q4H PRN PRN Reason: pain Last Admin: 04/03/18 23:43 Dose: 5 mg Pantoprazole Sodium (Protonix Tab *) 40 mg PO DAILY [facility] Pharmacy Profile Note (Lidocaine Patch Remove*) 1 note PATCH OFF 2100 [facility] Last Admin: 04/03/18 20:55 Dose: 1 note Pharmacy Profile Note (Fentanyl Patch Check Q Shift) 1 note FOLLOW UP 0700, 1900 [facility] Last Admin: 04/04/18 06:59 Dose: 1 note Potassium Chloride (Klor Con Er Tab*) 20 meq PO DAILY [facility] Last Admin: 04/03/18 07:56 Dose: 20 meq Prednisone (Deltasone Tab*) 40 mg PO DAILY [facility] Last Admin: 04/03/18 07:55 Dose: 40 mg Rivaroxaban (Xarelto(*)) 20 mg PO QPM [facility] Last Admin: 04/03/18 17:19 Dose: 20 mg Simethicone (Mylicon Tab*) 80 mg PO Q6H PRN PRN Reason: gas Tamsulosin HCl (Flomax Cap*) 0.4 mg PO BEDTIME [facility] Last Admin: 04/03/18 20:55 Dose: 0.4 mg Tiotropium [place] (Spiriva Cap.Inh*) 1 cap INH DAILY [facility] Last Admin: 04/04/18 07:55 Dose: 1 cap Objective: [] Selected Entries 04/03/18 04/03/18 08:00 11:15 Pulse Rate 79 Respiratory 20 Rate Blood Pressure 142/68 (mmHg) Blood Pressure 83 Mean O2 Sat by Pulse 93 Oximetry Oxygen Flow 4 Rate Patient on Room No Air A&Ox3, EOMI, KIM TLSO brace in place Sitting upright in chair in no acute distress, communicating effectively and clearly HRR, S1S2 LS with course crackles bilat., occ. wheeze, no cough noted today Resp. even and non-labored +BS, obese [place] draining clear yellow urine Assessment: []72 yo F w small cell lung ca sp curative intent treatment admitted with acute COPD exacerbation with acute hypoxic respiratory distress present on admission, now resolved. Clinically stable and awaiting placement. Plan: []d/c tamiko D/c John once insurance authorizes
[2018-04-04] MEDS: Lidocaine PATCH 5%* 1 PATCH TRANSDERM SCH (09:19)
[2018-04-04] MEDS: CMC: Calcitonin NASAL(NF) 200 UNITS/SPRAY NASAL.SPR ALT NARE SCH (09:19)
[2018-04-04] MEDS: predniSONE TAB* 20 MG PO SCH (09:19)
[2018-04-04] MEDS: Pantoprazole TAB * 40 MG TAB PO SCH (09:19)
[2018-04-04] MEDS: Furosemide TAB* 20 MG PO SCH (09:19)
[2018-04-04] MEDS: Potassium Chlor TAB* 20 MEQ TAB.ER PO SCH (09:20)
[2018-04-04] MEDS: oxyCODONE TAB* 5 MG TAB PO PRN ×2 (09:20→16:50)
[2018-04-04] MEDS: Diltiazem CD CAP* 180 MG PO SCH (09:20)
[2018-04-04] MEDS: Cholecalciferol TAB* 1000 UNITS PO SCH (09:20)
[2018-04-04] MEDS ORDERED: Ibuprofen TAB* 400 MG PO PRN (09:29)
--- NOTE | 2018-04-04 13:35 | PN ---
Progress Note - Progress Note Date of Service: 04/04/18 SOAP: Subjective: []Seen and examined this AM approx. 1000. Feeling well, "but I'm wheezy." No change in cough and still feels she is at baseline. Port was sore last night when attempt at re-access made. Anxious to go to skill nursing and frustrated by delay. Medications: Acetaminophen (Tylenol Tab*) 650 mg PO Q4H PRN PRN Reason: pain/fever Albuterol/Ipratropium (Duoneb (Albuterol 2.5 Mg/Ipratropium 0.5 Mg)) 1 neb INH Q4H PRN PRN Reason: SOB/WHEEZING Last Admin: 04/01/18 02:26 Dose: 1 neb Atorvastatin Calcium (Lipitor*) 40 mg PO QPM [facility] Last Admin: 04/03/18 17:19 Dose: 40 mg Calcitonin [place] (Fortical(Nr)) 200 units ALT NARE DAILY [facility]; Protocol Stop: 04/11/18 23:00 Last Admin: 04/04/18 09:19 Dose: 200 units Cholecalciferol (Vitamin D Tab*) 1,000 units PO QAM [facility] Last Admin: 04/04/18 09:20 Dose: 1,000 units Device (Tiotropium Inhaler Device*) 1 each .SEE ORDER .USE w/ SPIRIVA CAPS [facility] Diltiazem HCl (Cardizem Cd Cap*) 360 mg PO QAM [facility] Last Admin: 04/04/18 09:20 Dose: 360 mg Docusate Sodium (Colace Cap*) 100 mg PO BID PRN PRN Reason: CONSTIPATION Last Admin: 04/02/18 20:24 Dose: 100 mg Fentanyl (Duragesic Patch 12 Mcg/Hr *) 12 mcg TRANSDERM Q72H [facility] Last Admin: 04/01/18 16:53 Dose: 12 mcg Fentanyl (Duragesic Patch 25 Mcg/Hr*) 25 mcg TRANSDERM Q72H [facility] Last Admin: 04/01/18 16:55 Dose: 25 mcg Furosemide (Lasix Tab*) 20 mg PO DAILY [facility] Last Admin: 04/04/18 09:19 Dose: 20 mg Heparin Sodium (Porcine) (Heparin Flush [place] (Ivad)) 5 ml FLUSH DAILY [facility]; Protocol Last Admin: 04/04/18 09:20 Dose: Not Given Ibuprofen (Motrin Tab*) 400 mg PO Q6H PRN PRN Reason: PAIN Lactulose (Lactulose*) 30 ml PO TID PRN PRN Reason: CONSTIPATION Last Admin: 03/27/18 08:12 Dose: 30 ml Lidocaine (Lidoderm 5% Patch*) 1 patch TRANSDERM DAILY [facility] Last Admin: 04/04/18 09:19 Dose: 1 patch Lorazepam (Ativan Tab(*)) 0.25 mg PO Q6H PRN PRN Reason: ANXIETY Mometasone Furoate/Formoterol Fumar (Dulera 200/5 Mdi*) 1 puff INH BID PRN; Protocol PRN Reason: SHORTNESS OF BREATH Last Admin: 04/04/18 07:55 Dose: 1 puff Montelukast Sodium (Singulair Tab*) 10 mg PO DAILY PRN PRN Reason: Allergy Symptoms Oxycodone HCl (Roxycodone Tab*) 5 mg PO Q4H PRN PRN Reason: pain Last Admin: 04/04/18 09:20 Dose: 5 mg Pantoprazole Sodium (Protonix Tab *) 40 mg PO DAILY [facility] Last Admin: 04/04/18 09:19 Dose: 40 mg Pharmacy Profile Note (Lidocaine Patch Remove*) 1 note PATCH OFF 2100 [facility] Last Admin: 04/03/18 20:55 Dose: 1 note Pharmacy Profile Note (Fentanyl Patch Check Q Shift) 1 note FOLLOW UP 0700, 1900 [facility] Last Admin: 04/04/18 06:59 Dose: 1 note Potassium Chloride (Klor Con Er Tab*) 20 meq PO DAILY [facility] Last Admin: 04/04/18 09:20 Dose: 20 meq Prednisone (Deltasone Tab*) 40 mg PO DAILY [facility] Last Admin: 04/04/18 09:19 Dose: 40 mg Rivaroxaban (Xarelto(*)) 20 mg PO QPM [facility] Last Admin: 04/03/18 17:19 Dose: 20 mg Simethicone (Mylicon Tab*) 80 mg PO Q6H PRN PRN Reason: gas Tamsulosin HCl (Flomax Cap*) 0.4 mg PO BEDTIME [facility] Last Admin: 04/03/18 20:55 Dose: 0.4 mg Tiotropium [place] (Spiriva Cap.Inh*) 1 cap INH DAILY [facility] Last Admin: 04/04/18 07:55 Dose: 1 cap Objective: [] Vital Signs Temp Pulse Resp BP Pulse Ox 97.4 F 86 24 140/60 95 04/04/18 11:00 04/04/18 11:00 04/04/18 11:00 04/04/18 11:00 04/04/18 11:00 A&Ox3, EOMI, neuro grossly non-focal HRR, S1S2 LS rhonchi bilat. +BS, obese Port RCW benign with small bruise at access, no S/S infection TLSO in place Assessment: []72 yo female s/p definition chemo/rt for SCLC admitted with COPD exacerbation clinically stable for d/c however delayed by insurance authorization. Plan: []No IV access required Dispo: pending discharge to bed offered at [facility]
[2018-04-04] MEDS: fentaNYL PATCH 12 MCG/HR TRANSDERM SCH (16:45)
[2018-04-04] MEDS: fentaNYL PATCH 25 MCG/HR TRANSDERM SCH (16:46)
[2018-04-04] MEDS: Rivaroxaban TAB(*) 20 MG TAB PO SCH (16:50)
[2018-04-04] MEDS: Atorvastatin* 40 MG TAB PO SCH (16:50)
[2018-04-04] MEDS: Tamsulosin CAP* 0.4 MG PO SCH (22:31)
[2018-04-05] MEDS: oxyCODONE TAB* 5 MG TAB PO PRN ×4 (02:50→21:06)
[2018-04-05] MEDS: Lidocaine Patch REMOVE* 1 NOTE MISC PATCH OFF SCH ×2 (02:52→21:07)
[2018-04-05] MEDS: fentaNYL Patch Check Q Shift 1 NOTE FOLLOW UP SCH (07:17)
[2018-04-05] MEDS: Tiotropium CAP.INH* CAP.INH/18 MCG (USE ORDER SET !) INH SCH (07:32)
[2018-04-05] MEDS: Mometasone/Formoter 200/5 MDI INH PRN (07:32)
[2018-04-05] MEDS: Lidocaine PATCH 5%* 1 PATCH TRANSDERM SCH (08:33)
[2018-04-05] MEDS: CMC: Calcitonin NASAL(NF) 200 UNITS/SPRAY NASAL.SPR ALT NARE SCH (08:35)
[2018-04-05] MEDS: Diltiazem CD CAP* 180 MG PO SCH (08:36)
[2018-04-05] MEDS: Cholecalciferol TAB* 1000 UNITS PO SCH (08:36)
[2018-04-05] MEDS: Potassium Chlor TAB* 20 MEQ TAB.ER PO SCH (08:36)
[2018-04-05] MEDS: predniSONE TAB* 20 MG PO SCH (08:36)
[2018-04-05] MEDS: Pantoprazole TAB * 40 MG TAB PO SCH (08:36)
[2018-04-05] MEDS: Furosemide TAB* 20 MG PO SCH (08:36)
[2018-04-05] MEDS: Rivaroxaban TAB(*) 20 MG TAB PO SCH (17:25)
[2018-04-05] MEDS: Atorvastatin* 40 MG TAB PO SCH (17:25)
[2018-04-05] MEDS: Tamsulosin CAP* 0.4 MG PO SCH (21:07)
[2018-04-06] MEDS: fentaNYL Patch Check Q Shift 1 NOTE FOLLOW UP SCH ×3 (02:35→18:34)
[2018-04-06] MEDS: oxyCODONE TAB* 5 MG TAB PO PRN ×3 (04:07→19:26)
[2018-04-06] MEDS: Furosemide TAB* 20 MG PO SCH (07:26)
[2018-04-06] MEDS: CMC: Calcitonin NASAL(NF) 200 UNITS/SPRAY NASAL.SPR ALT NARE SCH (07:26)
[2018-04-06] MEDS: Lidocaine PATCH 5%* 1 PATCH TRANSDERM SCH (07:27)
[2018-04-06] MEDS: Cholecalciferol TAB* 1000 UNITS PO SCH (07:27)
[2018-04-06] MEDS: Diltiazem CD CAP* 180 MG PO SCH (07:27)
[2018-04-06] MEDS: Potassium Chlor TAB* 20 MEQ TAB.ER PO SCH (07:27)
[2018-04-06] MEDS: Pantoprazole TAB * 40 MG TAB PO SCH (07:27)
[2018-04-06] MEDS: predniSONE TAB* 20 MG PO SCH (07:27)
[2018-04-06] MEDS: Docusate CAP* 100 MG PO PRN (07:41)
[2018-04-06] MEDS: Mometasone/Formoter 200/5 MDI INH PRN (08:36)
[2018-04-06] MEDS: Tiotropium CAP.INH* CAP.INH/18 MCG (USE ORDER SET !) INH SCH (08:36)
[2018-04-06] MEDS: Rivaroxaban TAB(*) 20 MG TAB PO SCH (17:51)
[2018-04-06] MEDS: Atorvastatin* 40 MG TAB PO SCH (17:51)
[2018-04-06] MEDS: Tamsulosin CAP* 0.4 MG PO SCH (19:26)
[2018-04-06] MEDS: Lidocaine Patch REMOVE* 1 NOTE MISC PATCH OFF SCH (21:18)
[2018-04-07] MEDS: oxyCODONE TAB* 5 MG TAB PO PRN ×3 (03:46→16:56)
[2018-04-07] MEDS: fentaNYL Patch Check Q Shift 1 NOTE FOLLOW UP SCH ×2 (07:08→19:16)
[2018-04-07] MEDS: Tiotropium CAP.INH* CAP.INH/18 MCG (USE ORDER SET !) INH SCH (08:49)
[2018-04-07] MEDS: Mometasone/Formoter 200/5 MDI INH PRN (08:49)
[2018-04-07] MEDS ORDERED: predniSONE TAB* 10 MG PO SCH (09:00)
[2018-04-07] MEDS: Potassium Chlor TAB* 20 MEQ TAB.ER PO SCH (10:21)
[2018-04-07] MEDS: Pantoprazole TAB * 40 MG TAB PO SCH (10:21)
[2018-04-07] MEDS: Diltiazem CD CAP* 180 MG PO SCH (10:22)
[2018-04-07] MEDS: Furosemide TAB* 20 MG PO SCH (10:22)
[2018-04-07] MEDS: Cholecalciferol TAB* 1000 UNITS PO SCH (10:22)
[2018-04-07] MEDS: CMC: Calcitonin NASAL(NF) 200 UNITS/SPRAY NASAL.SPR ALT NARE SCH (10:28)
--- NOTE | 2018-04-07 11:24 | PN ---
Progress Note - Progress Note Date of Service: 04/07/18 SOAP: Subjective: []Feeling very well overall. Feels her breathing is a little better, though cont.'s to need increased O2 needs (up to 6 lpm via NC) with exertion. At rest using 3 lpm via NC and denies SOB or increased cough. She is appropriately frustrated by the delay in insurance authorization for transportation to SNF, however also states understanding for the process "hiccups". She states a desire to go home if possible, "however I don't want to fail." Her has limited mobility and continous O2 needs as well. Nursing staff note limited ability with self care and ADLs related to body habitus, however have not assessed her ability to manage her arredondo independently. Nursing notes reveal stable pressure ulcer to buttocks (present on admission) and RN today states it is not feasible for her to reach this area for self care of the wound. Medications: Acetaminophen (Tylenol Tab*) 650 mg PO Q4H PRN PRN Reason: pain/fever Albuterol/Ipratropium (Duoneb (Albuterol 2.5 Mg/Ipratropium 0.5 Mg)) 1 neb INH Q4H PRN PRN Reason: SOB/WHEEZING Last Admin: 04/01/18 02:26 Dose: 1 neb Atorvastatin Calcium (Lipitor*) 40 mg PO QPM [facility] Last Admin: 04/06/18 17:51 Dose: 40 mg Calcitonin [place] (Fortical(Nr)) 200 units ALT NARE DAILY [facility]; Protocol Stop: 04/11/18 23:00 Last Admin: 04/07/18 10:28 Dose: 200 units Cholecalciferol (Vitamin D Tab*) 1,000 units PO QAM [facility] Last Admin: 04/07/18 10:22 Dose: 1,000 units Device (Tiotropium Inhaler Device*) 1 each .SEE ORDER .USE w/ SPIRIVA CAPS [place]ERN[place] Diltiazem HCl (Cardizem Cd Cap*) 360 mg PO QAM [facility] Last Admin: 04/07/18 10:22 Dose: 360 mg Docusate Sodium (Colace Cap*) 100 mg PO BID PRN PRN Reason: CONSTIPATION Last Admin: 04/06/18 07:41 Dose: 100 mg Fentanyl (Duragesic Patch 12 Mcg/Hr *) 12 mcg TRANSDERM Q72H [facility] Last Admin: 04/04/18 16:45 Dose: 12 mcg Fentanyl (Duragesic Patch 25 Mcg/Hr*) 25 mcg TRANSDERM Q72H [facility] Last Admin: 04/04/18 16:46 Dose: 25 mcg Furosemide (Lasix Tab*) 20 mg PO DAILY [facility] Last Admin: 04/07/18 10:22 Dose: 20 mg Heparin Sodium (Porcine) (Heparin Flush [place] (Ivad)) 5 ml FLUSH DAILY [facility]; Protocol Last Admin: 04/07/18 10:22 Dose: Not Given Ibuprofen (Motrin Tab*) 400 mg PO Q6H PRN PRN Reason: PAIN Lactulose (Lactulose*) 30 ml PO TID PRN PRN Reason: CONSTIPATION Last Admin: 03/27/18 08:12 Dose: 30 ml Lidocaine (Lidoderm 5% Patch*) 1 patch TRANSDERM DAILY [facility] Last Admin: 04/06/18 07:27 Dose: 1 patch Lorazepam (Ativan Tab(*)) 0.25 mg PO Q6H PRN PRN Reason: ANXIETY Mometasone Furoate/Formoterol Fumar (Dulera 200/5 Mdi*) 1 puff INH BID PRN; Protocol PRN Reason: SHORTNESS OF BREATH Last Admin: 04/07/18 08:49 Dose: 1 puff Montelukast Sodium (Singulair Tab*) 10 mg PO DAILY PRN PRN Reason: Allergy Symptoms Oxycodone HCl (Roxycodone Tab*) 5 mg PO Q4H PRN PRN Reason: pain Last Admin: 04/07/18 10:28 Dose: 5 mg Pantoprazole Sodium (Protonix Tab *) 40 mg PO DAILY [facility] Last Admin: 04/07/18 10:21 Dose: 40 mg Pharmacy Profile Note (Lidocaine Patch Remove*) 1 note PATCH OFF 2100 [facility] Last Admin: 04/06/18 21:18 Dose: 1 note Pharmacy Profile Note (Fentanyl Patch Check Q Shift) 1 note FOLLOW UP 0700, 1900 [facility] Last Admin: 04/07/18 07:08 Dose: 1 note Potassium Chloride (Klor Con Er Tab*) 20 meq PO DAILY [facility] Last Admin: 04/07/18 10:21 Dose: 20 meq Prednisone (Deltasone Tab*) 30 mg PO DAILY [facility] Last Admin: 04/07/18 10:22 Dose: 30 mg Rivaroxaban (Xarelto(*)) 20 mg PO QPM [facility] Last Admin: 04/06/18 17:51 Dose: 20 mg Simethicone (Mylicon Tab*) 80 mg PO Q6H PRN PRN Reason: gas Tamsulosin HCl (Flomax Cap*) 0.4 mg PO BEDTIME [facility] Last Admin: 04/06/18 19:26 Dose: 0.4 mg Tiotropium [place] (Spiriva Cap.Inh*) 1 cap INH DAILY [facility] Last Admin: 04/07/18 08:49 Dose: 1 cap Objective: [] Vital Signs Temp Pulse Resp BP Pulse Ox 97.5 F 77 20 147/59 94 04/07/18 07:13 04/07/18 08:52 04/07/18 10:28 04/07/18 07:13 04/07/18 08:52 A&Ox3, EOMI, PERRLA, neuro grossly non-focal KIM, 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 TLSO in place HRR, S1S2 LS with course crackles bilat., consistent with baseline, resp. even and non- labored Obese Arredondo with clear yellow urine Assessment: []72 yo female s/p definition chemo/rt for SCLC admitted with COPD exacerbation clinically stable for d/c to SNF, however delayed by insurance authorization. At this time while she has improved from a respiratory standpoint, however she cont.'s to have significant limitations in mobility (related to TLSO, pain, weakness, and underlying body habitus) as well as continued intermediate need (chronic indwelling arredondo catheter and pressure ulcer wound care) that I feel limits her ability to return home safely. Plan: []1. Weakness: Case discussed with PT: re-aparna. ability to do stairs (requires 4 for entry into home and then flat layout), has already assessed ability to get in and out of car (as plan was for personal transport to SNF). Suspect she still has cont.'d high need for strength building. 2. Indwelling catheter: chronic and plan for f/u with urology later this week, nursing to assess ability to manage with pt. and 3. Pressure ulcer: will need cont.'s care and nursing will assess today ability of her and to manage Dispo: High suspicion for cont.'d skilled needs and working with insurance for authorization, based on re-assessments today if marked improvement will consider d/c home, though again I suspect this will not be the case
[2018-04-07] MEDS: fentaNYL PATCH 12 MCG/HR TRANSDERM SCH (16:52)
[2018-04-07] MEDS: fentaNYL PATCH 25 MCG/HR TRANSDERM SCH (16:53)
[2018-04-07] MEDS: Rivaroxaban TAB(*) 20 MG TAB PO SCH (16:57)
[2018-04-07] MEDS: Atorvastatin* 40 MG TAB PO SCH (16:57)
[2018-04-07] MEDS: Lidocaine PATCH 5%* 1 PATCH TRANSDERM SCH (17:52)
[2018-04-07] MEDS: Tamsulosin CAP* 0.4 MG PO SCH (21:13)
[2018-04-07] MEDS: Lidocaine Patch REMOVE* 1 NOTE MISC PATCH OFF SCH (22:09)
[2018-04-08] MEDS: oxyCODONE TAB* 5 MG TAB PO PRN ×2 (01:46→13:05)
[2018-04-08] MEDS: fentaNYL Patch Check Q Shift 1 NOTE FOLLOW UP SCH (07:11)
[2018-04-08] MEDS: Mometasone/Formoter 200/5 MDI INH PRN (08:26)
[2018-04-08] MEDS: Tiotropium CAP.INH* CAP.INH/18 MCG (USE ORDER SET !) INH SCH (08:26)
[2018-04-08] MEDS: CMC: Calcitonin NASAL(NF) 200 UNITS/SPRAY NASAL.SPR ALT NARE SCH (08:31)
[2018-04-08] MEDS: Diltiazem CD CAP* 180 MG PO SCH (08:32)
[2018-04-08] MEDS: Furosemide TAB* 20 MG PO SCH (08:32)
[2018-04-08] MEDS: Cholecalciferol TAB* 1000 UNITS PO SCH (08:32)
[2018-04-08] MEDS: Potassium Chlor TAB* 20 MEQ TAB.ER PO SCH (08:32)
[2018-04-08] MEDS: Pantoprazole TAB * 40 MG TAB PO SCH (08:32)
[2018-04-08] MEDS: Lidocaine PATCH 5%* 1 PATCH TRANSDERM SCH (08:32)
[2018-04-08] MEDS ORDERED: predniSONE TAB* 10 MG PO SCH ×2 (09:00)
--- NOTE | 2018-04-08 10:36 | PN ---
Progress Note - Progress Note Date of Service: 04/08/18 SOAP: Subjective: []Feeling OK. Motivated to keep working on building strength. Thick sputum but denies changes in breathing. Pain controlled. Frustrated with delay in transfer to long-term, however understanding of process and need for cont.'d long-term. Medications: Acetaminophen (Tylenol Tab*) 650 mg PO Q4H PRN PRN Reason: pain/fever Albuterol/Ipratropium (Duoneb (Albuterol 2.5 Mg/Ipratropium 0.5 Mg)) 1 neb INH Q4H PRN PRN Reason: SOB/WHEEZING Last Admin: 04/01/18 02:26 Dose: 1 neb Atorvastatin Calcium (Lipitor*) 40 mg PO QPM [facility] Last Admin: 04/07/18 16:57 Dose: 40 mg Calcitonin [place] (Fortical(Nr)) 200 units ALT NARE DAILY [facility]; Protocol Stop: 04/11/18 23:00 Last Admin: 04/08/18 08:31 Dose: 200 units Cholecalciferol (Vitamin D Tab*) 1,000 units PO QAM [facility] Last Admin: 04/08/18 08:32 Dose: 1,000 units Device (Tiotropium Inhaler Device*) 1 each .SEE ORDER .USE w/ SPIRIVA CAPS VERNON Diltiazem HCl (Cardizem Cd Cap*) 360 mg PO QAM [facility] Last Admin: 04/08/18 08:32 Dose: 360 mg Docusate Sodium (Colace Cap*) 100 mg PO BID PRN PRN Reason: CONSTIPATION Last Admin: 04/06/18 07:41 Dose: 100 mg Fentanyl (Duragesic Patch 12 Mcg/Hr *) 12 mcg TRANSDERM Q72H [facility] Last Admin: 04/07/18 16:52 Dose: 12 mcg Fentanyl (Duragesic Patch 25 Mcg/Hr*) 25 mcg TRANSDERM Q72H [facility] Last Admin: 04/07/18 16:53 Dose: 25 mcg Furosemide (Lasix Tab*) 20 mg PO DAILY [facility] Last Admin: 04/08/18 08:32 Dose: 20 mg Heparin Sodium (Porcine) (Heparin Flush [place] (Ivad)) 5 ml FLUSH DAILY [facility]; Protocol Last Admin: 04/08/18 08:34 Dose: Not Given Ibuprofen (Motrin Tab*) 400 mg PO Q6H PRN PRN Reason: PAIN Last Admin: 04/08/18 08:33 Dose: 400 mg Lactulose (Lactulose*) 30 ml PO TID PRN PRN Reason: CONSTIPATION Last Admin: 03/27/18 08:12 Dose: 30 ml Lidocaine (Lidoderm 5% Patch*) 1 patch TRANSDERM DAILY [facility] Last Admin: 04/08/18 08:32 Dose: 1 patch Lorazepam (Ativan Tab(*)) 0.25 mg PO Q6H PRN PRN Reason: ANXIETY Mometasone Furoate/Formoterol Fumar (Dulera 200/5 Mdi*) 1 puff INH BID PRN; Protocol PRN Reason: SHORTNESS OF BREATH Last Admin: 04/08/18 08:26 Dose: 1 puff Montelukast Sodium (Singulair Tab*) 10 mg PO DAILY PRN PRN Reason: Allergy Symptoms Oxycodone HCl (Roxycodone Tab*) 5 mg PO Q4H PRN PRN Reason: pain Last Admin: 04/08/18 01:46 Dose: 5 mg Pantoprazole Sodium (Protonix Tab *) 40 mg PO DAILY [facility] Last Admin: 04/08/18 08:32 Dose: 40 mg Pharmacy Profile Note (Lidocaine Patch Remove*) 1 note PATCH OFF 2100 [facility] Last Admin: 04/07/18 22:09 Dose: Not Given Pharmacy Profile Note (Fentanyl Patch Check Q Shift) 1 note FOLLOW UP 0700, 1900 [facility] Last Admin: 04/08/18 07:11 Dose: 1 note Potassium Chloride (Klor Con Er Tab*) 20 meq PO DAILY [facility] Last Admin: 04/08/18 08:32 Dose: 20 meq Prednisone (Deltasone Tab*) 30 mg PO DAILY [facility] Last Admin: 04/08/18 08:34 Dose: 30 mg Rivaroxaban (Xarelto(*)) 20 mg PO QPM [facility] Last Admin: 04/07/18 16:57 Dose: 20 mg Simethicone (Mylicon Tab*) 80 mg PO Q6H PRN PRN Reason: gas Tamsulosin HCl (Flomax Cap*) 0.4 mg PO BEDTIME [facility] Last Admin: 04/07/18 21:13 Dose: 0.4 mg Tiotropium [place] (Spiriva Cap.Inh*) 1 cap INH DAILY [facility] Last Admin: 01/15/19 08:26 Dose: 1 cap Objective: [] Vital Signs Temp Pulse Resp BP Pulse Ox 97.8 F 87 16 126/57 93 04/08/18 07:17 04/08/18 08:30 04/08/18 08:30 04/08/18 07:17 04/08/18 08:30 A&Ox3, EOMI, PERRLA, KIM with good strength = bilat. Neuro grossly non-focal TLSO in place HRR LS rhonchi bilat., no wheeze noted Wet cough, resp. even and non-labored +BS Obese Assessment: []72 yo female s/p definition chemo/rt for SCLC admitted with COPD exacerbation clinically stable for d/c to SNF, however delayed by insurance authorization. She has continued skill needs and is working with PT on strength building. Increased sputum production yesterday with pending sputum culture, however stable breathing therefore will hold off on abx. for now. Plan: []1. COPD: cont. current inhalers, suspect sputum is actually normal yoshi - prednisone decreased to 30 mg yesterday, plan taper to 20 mg 04/11 - cont. vibratory PEP 2. Weakness and compression fracture: cont. PT - cont. TLSO - walk with nursing BID in addition to PT Dispo: plan d/c to [facility] AS[facility], insurance auth pending
[2018-04-08 11:27] LABS: Hematocrit 28 % (35-47); Hemoglobin 9.4 g/dl (12.0-16.0); Mean Corpuscular HGB Conc 34 g/dl (31-36); Mean Corpuscular Hemoglobin 36 pg (27-31); Mean Corpuscular Volume 108 fL (80-97); White Blood Count 13.5 10^3/ul (3.5-10.8)
[2018-04-08 11:39] LABS: Albumin 3.5 g/dL (3.2-5.2); Albumin/Globulin Ratio 1.7 (1-3); BUN/Creatinine Ratio 24.7 (8-20); C Reactive Protein 4.26 mg/L (<8.01); Calcium 9.5 mg/dL (8.6-10.3); EGFR African American 84.3 (>60); EGFR Non-African American 69.7 (>60); Globulin 2.1 g/dL (2-4); Potassium 3.3 mmol/L (3.5-5.0); Total Bilirubin 0.6 mg/dL (0.2-1.0); Total Protein 5.6 g/dL (6.4-8.9)
[2018-04-08] MEDS ORDERED: Potassium Chlor TAB* 20 MEQ TAB.ER PO ONE (11:52)
[2018-04-08 12:03] VITALS: BP 150/73
[2018-04-08 12:37] LABS: ABS Basophils 0 10^3/ul (0-0.2); ABS Eosinophils 0 10^3/ul (0-0.6); ABS Lymphocytes 0.3 10^3/ul (1.0-4.8); ABS Monocytes 0.7 10^3/ul (0-0.8); ABS Neutrophils 12.4 10^3/ul (1.5-7.7); ABS Nucleated RBC 0 10^3/ul; Eosinophil % 0.1 %; Lymphocyte % 2.3 %; Mean Platelet Volume 8.9 fL (7.4-10.4); Nucleated Red Blood Cells % 0.1; Platelet Count 83 10^3/ul (150-450); Red Cell Distribution Width 27 % (10.5-15)
== END 2018-04-08 14:00 | disposition swing bed (61) | DRG 191 ==
LOC: ED 09:18 → MED 12:00
PROVIDERS: ADMIT Internal Medicine Hematology & Oncology; ATTEND Internal Medicine Hematology & Oncology
PROC: 30233N1 Transfusion of Nonautologous Red Blood Cells into Peripheral Vein, Percutaneous Approach (ICD-10-PCS; principal; 2018-03-28)
DX: J44.1 Chronic obstructive pulmonary disease with (acute) exacerbation (principal); M48.56XA Collapsed vertebra, not elsewhere classified, lumbar region, initial encounter for fracture; D58.9 Hereditary hemolytic anemia, unspecified; J96.11 Chronic respiratory failure with hypoxia; I48.91 Unspecified atrial fibrillation; I50.9 Heart failure, unspecified; E78.00 Pure hypercholesterolemia, unspecified; I11.0 Hypertensive heart disease with heart failure; G47.30 Sleep apnea, unspecified; M19.90 Unspecified osteoarthritis, unspecified site; H91.92 Unspecified hearing loss, left ear; T40.605A Adverse effect of unspecified narcotics, initial encounter; K59.03 Drug induced constipation; L89.90 Pressure ulcer of unspecified site, unspecified stage; Z98.42 Cataract extraction status, left eye; Z92.21 Personal history of antineoplastic chemotherapy; Z85.118 Personal history of other malignant neoplasm of bronchus and lung; Z87.442 Personal history of urinary calculi; Z88.1 Allergy status to other antibiotic agents; Z91.012 Allergy to eggs; Z98.41 Cataract extraction status, right eye; Z80.3 Family history of malignant neoplasm of breast; Z87.891 Personal history of nicotine dependence; Z87.440 Personal history of urinary (tract) infections; Z88.2 Allergy status to sulfonamides; Z88.5 Allergy status to narcotic agent; Z83.3 Family history of diabetes mellitus; Z83.6 Family history of other diseases of the respiratory system; Y92.9 Unspecified place or not applicable; Z99.81 Dependence on supplemental oxygen
CPT/HCPCS: 36415; 71045; 80048; 80053; 81003; 81015; 82607; 82728; 82803; 83010; 83540; 83550; 83605; 83615; 83880; 84484; 85025; 85045; 85060; 85610; 85730; 86140; 86850; 86880; 86900; 86901; 86922; 87040; 87070; 87077; 87086; 87186; 87205; 87641; 93005; 94640; 99231; 99232; 99233; 99239; 99284; A9270-GY; G8978-GP-CK; G8979-GP-CJ; G8987-GO-CL; G8988-GO-CI; J0456; J0696; J1100; J1642; J2930; J7512; P9040

== ENCOUNTER 2018-06-08 15:29 | Inpatient (IN) | payer MEDICARE ==
--- OUTSIDE RECORDS SUMMARY | 2018-06-08 17:16 | XMS REPORT | Continuity of Care Document ---
:1945 External Reference #:[id number] Author Name Paige Gonzalez Care Team Providers Name Role Phone Lorelei Pickett MD Primary Care Physician Unavailable Payers Date Identification Numbers Payment Provider Subscriber Expires: 2017 Policy Number: [id number] Medicare Blue Ppo Kassandra Naylor Group Number: [id number] [address] [address] PayID: [id number] ROBINSON Prasad [address] Effective: 2017 Policy Number: [id number] [employer] Options Kassandra Naylor PayID: [id number] [address] [address] Attn: [place] [address] Advance Directives Description No Information Available Problems Date Description Provider Status Onset: 06/19/2013 Dyspnea Abhishek Beck M.D. Active Onset: 06/19/2013 Electrocardiogram abnormal Ahbishek Beck M.D. 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 Tobacco Use Start: Unknown Former Cigarette End: Unknown Smoker Smoking Status Reviewed: 04/18/18 Former Cigarette Smoker ETOH Use Denies alcohol [...] Codeine rapid heart beat Active Severe 06/19/2013 [place] Syrup tongue swelling Active Severe 06/19/2013 Sulfa [...] mouth every Norma, - 12 hours ( 09/01 finished treatment) Prednisone 11/28 Hx Tablets 5mg 14tab 1 tab by R59.0 Matilde /2017 s mouth every Norma, - day every MD 05/27 morning (pt /2017 finished) Cefaclor ER 11/28 Hx Tablets ER 500mg 20tab 1 by mouth R59.0 12HR s twice a day Norma, - ( finished 09/15 treatment) Prednisone 07/26 Hx Tablets 5mg 14tab 1 tab by J45.41 Matilde /2017 s mouth every Norma, - day every MD 11/28 morning Prednisone 07/05 Hx Tablets 10mg 42tab 30mg daily J45.41 Matilde s for 1 week, , - 20mg daily 07/25 for 1 week, [...] by M76.32 Nguyễn /0000 s mouth every Rsinivasan, - day at M.DTravis 02/19 bedtime directed Augmentin 00 Hx not sure of Unknown /0000 dose, for - pneumonia 07/25 Clarinex Hx Tablets 5mg 1 by mouth Unknown /0000 every day - 12/20 Mometasone Hx Suspension 50mcg/Act spray 2 Unknown Furoate sprays into - each 07/30 nostril times daily Augmentin Hx Tablets 875-125mg 1 tablet by Unknown /0000 mouth q12 - hours for 07/30 Prednisone Hx Tablets 5mg 1 tablet po Blegen, / daily ( Lorelei, - isak GABRIEL 09/2307/31/17 Nitrofurantoin Hx Capsules 100mg 2 by mouth Unknown Monohyd Macro /0000 daily for 7 - days 09/15 Allergy Shots Hx once a Matilde Zolair? / month Karen Green MD 09/15 Xolair Hx [...] Administered Injection Nguyễn 80MG 011 Ashly Mattson Immunizations Description No Information Available Vital Signs Date Vital Result Comment 05/16/2018 10:52am Height 64 inches 5'4" Weight 230.00 lb Heart Rate 88 /min BP Systolic Recheck 122 mmHg BP Diastolic Recheck 70 mmHg Respiratory Rate 16 /min Body Temperature 97.5 F BMI (Body Mass Index) 39.5 kg/m2 04/18/2018 12:10pm Height 64 inches 5'4" Heart Rate 88 /min BP Systolic Recheck 136 mmHg BP Diastolic Recheck 84 mmHg Respiratory Rate 16 /min Body Temperature 98.7 F 01/27/2018 10:23am Height 64 inches 5'4" Weight [...] Date Facility Test Result H/L Range Note Comp Metabolic Panel 02/26/2018 [facility] Sodium 140 mmol/L N 135-[address] [place] [address] [phone] Chloride 97 mmol/L Low 101-111 Co2 Carbon Dioxide 34 mmol/L High 22-32 Glucose 150 mg/dL High 70-100 Blood Urea Nitrogen 26 mg/dL High 6-24 Creatinine 1.07 mg/dL High 0.51-0.95 BUN/Creatinine Ratio 24.3 High 8-20 Calcium 9.9 mg/dL N 8.6-10.3 Total Protein 5.9 g/dL Low 6.4-8.9 Albumin 3.7 g/dL N 3.2-5.2 Globulin 2.2 g/dL N 2-4 Albumin/Globulin Ratio 1.7 N 1-3 Total Bilirubin 0.60 mg/dL N 0.2-1.0 Alkaline Phosphatase 118 U/L High 34-104 Alt 79 U/L High 7-52 Ast 12 U/L Low 13-39 Egfr Non- 50.6 >60 Egfr 61.2 >60 1 Potassium 5.1 mmol/L High 3.5-5.0 Anion Gap 9 mmol/L N 2-11 Laboratory test 02/26/2018 [facility] Magnesium 1.5 mg/dL Low 1.9-2.7 [address] [place] [address] [phone] CBC Auto Diff 02/26/2018 [facility] White Blood 16.7 High 3.5- 10.[address] Count 10^3/[place] [address] [phone] Red Blood Count 3.24 10^6/uL Low 4.00-5.40 Hemoglobin 10.4 g/dL Low 12.0-16.0 Hematocrit 31 % Low 35-47 Mean Corpuscular Volume 97 fL N 80-97 Mean Corpuscular Hemoglobin 32 pg High 27-31 Mean Corpuscular HGB Conc 33 g/dL N 31-36 Red Cell Distribution Width 25 % High 10.5-15 Platelet Count 173 10^3/uL N 150-450 Mean Platelet Volume 9.4 fL N 7.4-10.4 Abs Neutrophils 15.2 10^3/uL High 1.5-7.7 Abs Lymphocytes 0.2 10^3/uL Low 1.0-4.8 Abs Monocytes 1.3 10^3/uL High 0-0.8 Abs Eosinophils 0 10^3/uL N 0-0.6 Abs Basophils 0 10^3/uL N 0-0.2 Abs Nucleated RBC 0 10^3/uL Granulocyte % 91.2 % Lymphocyte % 1.1 % Monocyte % 7.6 % Eosinophil % 0 % Basophil % 0.1 % Nucleated Red Blood Cells % 0.2 Manual Differential 02/26/2018 [facility] Immature 8 % N 0-[address] [place] [address] [phone] Neutrophil % 86 % Band % 6 % N 0-8 Lymphocytes % 2 % Monocytes % 4 % Metamyelocytes % 2 % N 0-2 Abs Neutrophils 15.7 10^3/uL High 1.5-7.7 Abs Lymphocytes 0.3 10^3/uL Low 1.0-4.8 Abs Monocytes 0.7 10^3/uL N 0-0.8 Abs Eosinophils 0 10^3/uL N 0-0.6 Abs Basophils 0 10^3/uL N 0-0.2 Polychromasia 1+ Anisocytosis 2+ Sputum Culture 12/04/2017 [facility] Sputum Culture SEE RESULT 3 & Sensitiv [address] [place] [address] [phone] Platelet Count 11/01/2017 [facility] Platelet Count 259 10^3/uL N 150-[address] [place], [place] [id number] [phone] Mean Platelet Volume 9.1 um3 N 7.4-10.4 Inr/Protime 11/01/2017 [facility] Inr 0.96 N 0.77-1.[address] [place] [address] [phone] Laboratory test 11/01/2017 [facility] Partial Thrombo 27.2 N 26.0-36.[address] Time PTT seconds [place], [place] [id number] [phone] Leukemia/Lympho 10/31/2017 [facility] Path tnp ma Flow [address] [place] [address] 2-8 Marker [phone] Path Interpret 9-15 Marker (SEE NOTE) 4 Path Interpret > 16 Marker tnp Laboratory test 10/31/2017 [facility] Cytology SEE RESULT [address] Non-Advertising Operations Manager BELOW [place], [place] [id number] [phone] Laboratory test 09/18/2017 [facility] Cytology SEE RESULT [address] Non[employer]vertising [place] [address] [phone] Comp Metabolic 09/28/2016 [facility] Sodium 140 mmol/L N 133- [address] [place] [address] [phone] Potassium 3.6 mmol/L N 3.5-5.0 Chloride 104 [...] 59.6 N >60 Egfr 76.7 N >60 7 CBC Auto 09/28/2016 [facility] White Blood 14.7 10^3/uL High 3.5-10.[address] [place] [address] [phone] Red Blood Count 4.02 10^6/uL N 4.0-5.4 [...] Blood Cells % 0 N Laboratory 09/28/2016 [facility] Immunoglobulin E 262 Abnormal <=214 8 test finding [address] kU/[place] [address] [phone] CBC Auto Diff 07/26/2016 [facility] White Blood Count 16.7 High 3.5-10.[address] 10^3/[place] [address] [phone] Red Blood Count 3.99 10^6/uL Low 4.0-5.4 [...] Red Blood Cells % 0 N Laboratory 07/26/2016 [facility] Immunoglobulin E 362 Abnormal <=214 9 test finding [address] (Ige) kU/[place] [address] [phone] Anti Nuclear Antibody 0.3 U N 10 1 Because ethnic data is not always readily [...] 15-29 5 Kidney failure <15 (or dialysis) 2 [id number] Copy Result to: DIANNA FELICIANO ([id number]) 3 SEE RESULT BELOW Name: KASSANDRA NAYLOR : [address]: Matilde Green MD Acct: [id number] Unit: [id number] AGE: 72 Location: [facility] Re12/04/17 SEX: F Status: REG REF SPEC: [id number] PAWEL: 12/04/17-[address]: Matilde Green MD REQ: [id number] RECD: 12/04/17 STATUS: COMP _ SOURCE: SPUTUM,EXP [...] . END OF REPORT DEPARTMENT OF PATHOLOGY, [address] [place] [address] Apolinar Louis M.D. Director [facility] # [id number] 4 FINAL DIAGNOSIS: Specimen Source: Left parotid ([id number]) Flow cytometry immunophenotypic analysis: No evidence of [...] MD 11/04/17 0949 Technical component performed by: [place] [address] Sustainability Communicator: Federico Dow II, MD, PhD. 5 SEE RESULT BELOW Name: KASSANDRA NAYLOR : [address]: Ishmael AZEVEDO Acct: [id number] Unit: [id number] AGE: 72 Location: Re10/31/17 SEX: F Status: REG REF SPEC: [id number] PAWEL: 10/31/17-[address]: Ishmael AZEVEDO REQ: [id number] RECD: 10/31/17 STATUS: TERESSA MONTERO DR: Bruce Bruno MD _ ORDERED: FNA-IMG GUID BX, CY ADEQ-ADDL P, LEVEL 4, CYTO ADEQ-1ST P Flow cytometry has been performed at [place], [place]. The testing reveals: FINAL DIAGNOSIS: Specimen Source: Left parotid ([id number]) Flow cytometry immunophenotypic analysis:No evidence of an [...] Joe MD11/04/17 0949 Technical component performed by: [place] [address] Sustainability Communicator: Federico Dow II, MD, PhD. Addendum Signed (signature on file) Candi Joe MD 1706 FINAL DIAGNOSIS CONTINUED ON NEXT PAGE DEPARTMENT OF PATHOLOGY, [address] [place] [address] Apolinar Louis M.D. Director [facility] # [id number] RUN DATE: 11/05/17 [facility] LAB LIVE PAGE 2 Patient: KASSANDRA NAYLOR [id number] (Continued) FINAL DIAGNOSIS (Continued) Left parotid lymph [...] formalin for cell blockand Specimen sent to [facility] for Flow cytometry [place], [place] on 10/31/17. Signed by and Reported on: Candi Joe MD 11/04/17 1055 END OF REPORT DEPARTMENT OF PATHOLOGY, [address] [place] [address] Apolinar Louis M.D. Director [facility] # [id number] 6 SEE RESULT BELOW Name: KASSANDRA NAYLOR : [address]: Matilde Green MD Acct: [id number] Unit: [id number] AGE: 72 Location: [place] Re09/18/17 SEX: F Status: DEP SDC SPEC: [id number] PAWEL: 09/18/17-[address]: Matilde Green MD REQ: [id number] RECD: 09/18/17 STATUS: SOUT _ ORDERED: FNA-IMG [...] CONTINUED ON NEXT PAGE DEPARTMENT OF PATHOLOGY, [address] [place] [address] Apolinar Louis M.D. Director [facility] # [id number] RUN DATE: 09/20/17 [facility] LIVE PAGE 2 Patient: KASSANDRA NAYLOR [id number] (Continued) FINAL DIAGNOSIS (Continued) Comment: Dr. Joe [...] 1210 END OF REPORT DEPARTMENT OF PATHOLOGY, [address] [place] [address] Apolinar Loius M.D. Director [facility] # [id number] 7 Because ethnic data is not always readily [...] 15-29 5 Kidney failure <15 (or dialysis) 8 Test Performed by: [address] [address] 9 Test Performed by: [facility] [address] [place] [address] 10 REFERENCE VALUE <=1.0 (Negative) Test Performed by: [address] [address] Procedures Date Code Description Status 04/01/2018 80061 EKG, Interpretation Only Completed 02/22/2018 91525 Implantable Cardio System Loop Recorder Sys Remota Data Completed Acquistio 02/22/2018 40592 Interrogation Dev Loop Recorder Incl Physician Completed Analysis,Rev,Repor 02/11/2018 44910 EKG, Interpretation Only Completed 01/22/2018 49112 Implantable Cardio System Loop Recorder Sys Remota Data Completed Acquistio 01/22/2018 98040 Interrogation Dev Loop Recorder Incl Physician Completed Analysis,Rev,Repor 01/15/2018 31525 ECHO Transthorasic Realtime 2D W Doppler & Color Flow Hosp Completed 12/22/2017 67308 Implantable Cardio System Loop Recorder Sys Remota Data Completed Acquistio 12/22/2017 02823 Interrogation Dev Loop Recorder Incl Physician Completed Analysis,Rev,Repor 11/21/2017 12316 Implantable Cardio System Loop Recorder Sys Remota Data Completed Acquistio 11/21/2017 91756 Interrogation Dev Loop Recorder Incl Physician Completed Analysis,Rev,Repor 11/01/2017 16977 Insertion Tunneled Cent Venous Cathr W Subcut Port 5 Yrs Completed Or Oldr 11/01/2017 91273 Ultrasound Guidance For Vascular Access Completed 11/01/2017 09607 Fluoroscopic Guidance For Cent Completed 11/01/2017 38438 Moderate Sedation Services; Same Phys Intl 15 Mins; PT >=5 Completed Years 11/01/2017 85938 Moderate Sedation Services; Same Phys Each Additional 15 Completed Mins 10/21/2017 81248 Implantable Cardio System Loop Recorder Sys Remota Data Completed Acquistio 10/21/2017 93670 Interrogation Dev Loop Recorder Incl Physician Completed Analysis,Rev,Repor 09/20/2017 87815 Implantable Cardio System Loop Recorder Sys Remota Data Completed Acquistio 09/20/2017 52462 Interrogation Dev Loop Recorder Incl Physician Completed Analysis,Rev,Repor 09/18/2017 63890 Endobronchial Ultrasound=>3 Completed 08/20/2017 28486 Implantable Cardio System Loop Recorder Sys Remota Data Completed Acquistio 08/20/2017 61622 Interrogation Dev Loop Recorder Incl Physician Completed Analysis,Rev,Repor 07/31/2017 14815 EKG Tracing & Interpretation Completed 07/20/2017 86120 Implantable Cardio System Loop Recorder Sys Remota Data Completed Acquistio 07/20/2017 96513 Interrogation Dev Loop Recorder Incl Physician Completed Analysis,Rev,Repor 06/19/2017 28983 Implantable Cardio System Loop Recorder Sys Remota Data Completed Acquistio 06/19/2017 99821 Interrogation Dev Loop Recorder Incl Physician Completed Analysis,Rev,Repor 05/19/2017 01449 Interrogation Dev Loop Recorder Incl Physician Completed Analysis,Rev,Repor 05/19/2017 20220 Implantable Cardio System Loop Recorder Sys Remota Data Completed Acquistio 04/18/2017 05740 Implantable Cardio System Loop Recorder Sys Remota Data Completed Acquistio 04/18/2017 20804 Interrogation Dev Loop Recorder Incl Physician Completed Analysis,Rev,Repor 03/18/2017 52800 Implantable Cardio System Loop Recorder Sys Remota Data Completed Acquistio 03/18/2017 55513 Interrogation Dev Loop Recorder Incl Physician Completed Analysis,Rev,Repor 02/15/2017 06004 Implantable Cardio System Loop Recorder Sys Remota Data Completed Acquistio 02/15/2017 57208 Interrogation Dev Loop Recorder Incl Physician Completed Analysis,Rev,Repor 01/14/2017 21493 Implant Cardiac Loop Recorder Completed 12/21/2016 68090 EKG Tracing & Interpretation Completed 07/04/2016 54381 EKG Tracing & Interpretation Completed 04/18/2016 78230 EKG Tracing & Interpretation Completed 04/12/2016 84848 Inject/Drain Joint/Bursa Major W/O US Completed 12/21/2015 27415 Polysomnography Sleep Staging 4+ Parameters Completed 12/14/2015 21778 Pulmonary Function><Bronchodil Completed 12/14/2015 21789 Plethysmography Determination Lung Volumes & Per Airway Completed Resist 12/14/2015 07910 Diffusing Capacity Completed 11/25/2015 85749 EKG Tracing & Interpretation Completed 11/16/201519401 Inject/Drain Joint/Bursa Major W/O US Completed 11/03/2015 02106 ECHO Transthorasic Realtime 2D W Doppler & Color Flow Hosp Completed 07/29/201556782 Inject/Drain Joint/Bursa Major W/O US Completed 07/29/2015 Inject/Drain Joint/Bursa Major W/O US Completed 04/27/2015 Inject/Drain Joint/Bursa Major W/O US Completed 11/30/2014 Inject/Drain Joint/Bursa Major W/O US Completed 07/01/2013 61913 Stress Test Completed 07/01/2013 83658 Myocardial Perfusion Imaging Tomographic (Spect) Multiple Completed Studies 12/13/2010 14952 Xray Knee 3 Views Completed 12/13/2010 Inject/Drain Joint/Bursa Major W/O US Completed 12/05/2010 77524 Color Flow Doppler/Interp & Reprt Completed 12/05/2010 04917 Pulse Wave/Continuous-Interp.RPT Completed 12/05/2010 84249 ECHO Transthorasic Realtime 2D W Doppler & Color Flow Hosp Completed Encounters Type Date Location Provider Dx Diagnosis Office Visit 05/09/2018 Surgical Vitaly S. K80.20 Calculus of 7:00a [facility] MD Lesli gallbladder w/o cholecystitis w/o obstruction R10.13 Epigastric pain J44.9 Chronic obstructive pulmonary disease, unspecified R19.7 Diarrhea, unspecified Office Visit 04/18/2018 Neurosurgery Alysha Shah, S22.060D Wedge comprsn fx 12:00p [facility] AT PA-C T7-T8 vertebra, Nuckolls subs for fx w routn heal Office Visit 03/21/2018 [facility] Afshan J44.0 Chronic 8:30a MD Rosario obstructive pulmon disease w acute lower resp infct S32.000A Wedge compression fracture of unsp lumbar vertebra, init Office Visit 03/14/2018 10:45a [facility] Afshan S32.000A Wedge compression MD Rosario fracture of unsp lumbar vertebra, init C34.90 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 bronchus or lung J44.9 Chronic obstructive pulmonary disease, unspecified I48.0 Paroxysmal atrial fibrillation Office Visit 03/13/2018 8:45a [facility] Chelsey Bedolla M54.5 Low back pain INGRID Lr S32.000D Wedge comprsn fx unsp lum vertebra, subs for fx w routn heal Z78.9 Other specified health status Office Visit 03/05/2018 1:26p [facility] For Abimael Ramirez J15.1 Pneumonia due to Infectious Ashly Pulliam Pseudomonas Diseases S32.008D Oth fracture of unsp lum vertebra, subs for fx mónica wolfe heal J44.9 Chronic obstructive pulmonary disease, unspecified C34.90 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 bronchus or lung Office Visit 03/03/2018 Neurosurgery Vassilios S32.010A Wedge 7:00a Services Of Tung Lopez MD compression fracture of first lumbar vertebra, init Office Visit 03/02/2018 [facility] Adele Sheriff, S32.010A Wedge 2:01p Assoc,pc DO compression Hospitalists fracture of first lumbar vertebra, init J18.9 Pneumonia, unspecified organism C34.90 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 bronchus or lung J44.9 Chronic obstructive pulmonary disease, unspecified I48.91 Unspecified atrial fibrillation D64.9 Anemia, unspecified Office Visit 03/02/2018 Neurosurgery Vassilios S32.010A Wedge 7:00a Services Of Tung Lopez MD compression fracture of first lumbar vertebra, init Office Visit 03/01/2018 [facility] Maritza Sauer, J18.9 Pneumonia, 2:01p Assoc,pc Ashly unspecified Hospitalists organism S32.010A Wedge compression fracture of first lumbar vertebra, init I48.91 Unspecified atrial fibrillation C34.90 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 bronchus or lung Office Visit 02/12/2018 8:43a [facility] Richard Kohli, D69.6 Thrombocytopenia, M.D. unspecified D64.9 Anemia, unspecified Office Visit 02/11/2018 8:42a [facility] Shlomo Whiting DO R53.1 Weakness N17.9 Acute kidney failure, unspecified D61.810 Antineoplastic chemotherapy induced pancytopenia C34.90 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 bronchus or lung R19.7 Diarrhea, unspecified E86.0 Dehydration E87.1 Hypo-osmolality and hyponatremia E87.6 Hypokalemia Office Visit 02/11/2018 [facility] Abimael Ramirez D70.1 Agranulocytosis 10:37a For Infectious Macqueen, M.D. secondary to cancer Diseases chemotherapy R74.0 Nonspec elev of levels of transamns & lactic acid dehydrgnse R19.7 Diarrhea, unspecified I48.91 Unspecified atrial fibrillation C34.90 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 bronchus or lung Office Visit 02/10/2018 8:41a [facility] Shlomo Whiting DO R53.1 Weakness N17.9 Acute kidney failure, unspecified D61.810 Antineoplastic chemotherapy induced pancytopenia C34.90 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 bronchus or lung R19.7 Diarrhea, unspecified E87.1 Hypo-osmolality and hyponatremia E87.6 Hypokalemia R74.0 Nonspec elev of levels of transamns & lactic acid dehydrgnse Office Visit 01/27/2018 Pulmonology And Matilde J45.40 Moderate persistent 10:45a Sleep Services Of MD Norma asthma, Online Content Developer uncomplicated G47.33 Obstructive sleep apnea (adult) (pediatric) C34.90 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 bronchus or lung E66.09 Other obesity due to excess calories Office Visit 01/03/2018 11:22a [facility] Abimael Ramirez D70.9 Neutropenia, For Infectious Ashly Pulliam unspecified Diseases C34.90 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 bronchus or lung Z92.3 Personal history of irradiation Office Visit 12/10/2017 Pulmonology Aston Clyaton J45.901 Unspecified asthma 12:00p [facility] Of MD Norma with (acute) Online Content Developer exacerbation G47.33 Obstructive sleep apnea (adult) (pediatric) E66.01 Morbid (severe) obesity due to excess calories Office Visit 12/03/2017 Pulmonology Wojciech Clayton J45.901 Unspecified asthma 12:00p Sleep Services AT MD Norma with (acute) John exacerbation J20.9 Acute bronchitis, unspecified G47.33 Obstructive sleep apnea (adult) (pediatric) E66.01 Morbid (severe) obesity due to excess calories C34.90 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 bronchus or lung E66.09 Other obesity due to excess calories Office Visit 09/23/2017 10:30a Pulmonology And Kasey Mckenzie G47.33 Obstructive sleep Sleep Services Of Sayra Peralta apnea (adult) Online Content Developer (pediatric) E66.09 Other obesity due to excess calories J45.40 Moderate persistent asthma, uncomplicated C34.90 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 bronchus or lung Office Visit 09/16/2017 12:30p Pulmonology And Matilde R59.0 Localized enlarged Sleep Services Of MD Norma lymph nodes Online Content Developer Office Visit 09/02/2017 9:15a Pulmonology And Matilde J45.41 Moderate Sleep Services Of MD Norma persistent asthma Online Content Developer with (acute) exacerbation G47.33 Obstructive sleep apnea (adult) (pediatric) E66.09 Other obesity due to excess calories Office Visit 07/31/2017 11:30a [facility] Abhishek D. I48.0 Paroxysmal atrial Of Tung Beck M.D. 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 I48.0 Paroxysmal atrial Of Tung Beck M.D. fibrillation I10 Essential (primary) hypertension Office Visit 12/21/2016 11:15a [facility] Abhishek D. I48.0 Paroxysmal atrial Of Tung Beck M.D. fibrillation I10 Essential (primary) hypertension R06.02 Shortness of breath Office Visit 11/28/2016 11:00a Pulmonology And Matilde G47.33 Obstructive sleep Sleep Services Of MD Norma apnea (adult) Online Content Developer (pediatric) J45.40 Moderate persistent asthma, uncomplicated J01.80 Other acute sinusitis Office Visit 09/13/2016 1:30p Pulmonology And Matilde J45.41 Moderate Sleep Services Of MD Norma persistent asthma Online Content Developer with (acute) exacerbation J30.9 Allergic rhinitis, unspecified G47.33 Obstructive sleep apnea (adult) (pediatric) E66.01 Morbid (severe) obesity due to excess calories Z68.42 Body mass index (BMI) 45.0-49.9, adult Office Visit 07/26/2016 10:45a Pulmonology And Matilde J45.41 Moderate Sleep Services Of MD Norma persistent asthma Online Content Developer with (acute) exacerbation G47.33 Obstructive sleep apnea (adult) (pediatric) E66.01 Morbid (severe) obesity due to excess calories Z68.42 Body mass index (BMI) 45.0-49.9, adult Office Visit 07/23/2016 1:00p Orthopedic Christian Cai M75.31 Calc[facility] Services Of MD Annemarie tendinitis of C.M.A. right shoulder M19.011 Primary osteoarthritis, right shoulder M75.41 Impingement syndrome of right shoulder Office Visit 07/05/2016 10:45a Pulmonology And Matilde J45.41 Moderate Sleep Services Of MD Norma persistent asthma Online Content Developer with (acute) exacerbation G47.33 Obstructive sleep apnea (adult) (pediatric) E66.01 Morbid (severe) obesity due to excess calories Office Visit 07/04/2016 10:30a [facility] Abhishek Ramirez I48.0 Paroxysmal atrial Of Tung Beck M.D. fibrillation J44.0 Chronic obstructive pulmon disease w acute lower resp infct I10 Essential (primary) hypertension Z01.810 Encounter for preprocedural cardiovascular examination M19.011 Primary osteoarthritis, right shoulder Office Visit 06/18/2016 2:45p Orthopedic Christian Cai M75.31 [facility] Services Of MD Annemarie tendinitis of C.M.A. right shoulder M19.011 Primary osteoarthritis, right shoulder M75.41 Impingement syndrome of right shoulder Office Visit 04/30/2016 11:15a Orthopedic Christian Cai M75.31 [facility] Services Of MD Annemarie tendinitis of C.M.A. right shoulder M75.41 Impingement syndrome of right shoulder M19.011 Primary osteoarthritis, right shoulder Office Visit 04/18/2016 11:00a [facility] Abhishek Ramirez I48.0 Paroxysmal atrial Of Tung Beck M.D. fibrillation R06.02 Shortness of breath J44.0 Chronic obstructive pulmon disease w acute lower resp infct I10 Essential (primary) hypertension Office Visit 04/12/2016 10:30a [facility] Christian Cai S46.011A Strain of Services Of MD Annemarie musc/tend the C.M.A. rotator cuff of right shoulder, init M75.41 Impingement syndrome of right shoulder M19.011 Primary osteoarthritis, right shoulder Office Visit 02/21/2016 [facility] And Matilde J45.909 Unspecified asthma , 11:30a Sleep Services Of MD Norma uncomplicated [facility] G47.33 Obstructive sleep apnea (adult) (pediatric) Office Visit 01/04/2016 11:30a Pulmonology And Matilde G47.33 Obstructive sleep Sleep Services Of MD Norma apnea (adult) Online [employer] Developer (pediatric) J45.909 Unspecified asthma, uncomplicated Office Visit 11/25/2015 1:00p [facility] Abhishek Ramirez I48.0 Paroxysmal atrial Of Tung Beck M.D. fibrillation J44.0 Chronic obstructive pulmon disease w acute lower resp infct R94.31 Abnormal electrocardiogram [ECG] [EKG] Office Visit 11/23/2015 11:30a Pulmonology And Matilde R06.02 Shortness of Sleep Services Of MD Norma breath [facility] J45.909 Unspecified asthma, uncomplicated G47.9 Sleep disorder, unspecified E66.01 Morbid (severe) obesity due to excess calories Office Visit 11/03/2015 [facility] I48.91 Unspecified atrial 4:06p Assocaruna M.D. fibrillation Hospitalists I48.0 Paroxysmal atrial fibrillation J44.0 Chronic obstructive pulmon disease w acute lower resp infct E66.01 Morbid (severe) obesity due to excess calories [facility] I[facility].91 Unspecified Visit 7:58a Assoc,JOLLY Rascon atrial [...] Or Localized Lower Leg Office Visit 07/14/2013 [facility]hek Ramirez 794.31 Electrocardiogram 1:15p Cardiology Of Ashly Beck (ECG) (EKG) Abnormal [facility] AT [facility] 786.05 Shortness Of Breath Office Visit 06/19/2013 2:00p [facility] Abhishek Ramirez 786.05 Shortness Of Of [facility] Ashly Beck Breath 794.31 Electrocardiogram (ECG) (EKG) [...] Or Meniscus Philippe Plan of Treatment Future Appointment(s):05/30/2018 10:30 am - Alysha Shah PA-C at [facility] Of [facility] AT [facility]52/22/2019 - JOLLY Kruse-CS32.010G Wedge comprsn fx first lum vert, subs for fx w delay healNew Xrays:SP Lumbar Ap//Lat 2-3 Views , Ordered: 05/16/18Follow up:05/30 Complete xray 1-2 days prior to follow up appointment
[2018-06-08] MEDS ORDERED: Piperacillin/Tazobac ADVAN(*) 3.375 GM in NS 0.9% 100 ML* 100 ML IVPB ONE (17:23)
[2018-06-08] MEDS ORDERED: Acetaminophen TAB* 325 MG PO PRN (17:28)
[2018-06-08] MEDS ORDERED: NS 0.9% 1000 ML** 1,000 ML IV SCH (17:30)
[2018-06-08] MEDS ORDERED: Zosyn per Pharmacy* NOTE FOLLOW UP SCH (18:00)
[2018-06-08] MEDS ORDERED: Rivaroxaban TAB(*) 20 MG TAB PO SCH (18:00)
[2018-06-08 18:05] LABS: INR 2.93 (0.77-1.02)
[2018-06-08 18:08] LABS: ALT 15 U/L (7-52); AST 17 U/L (13-39); Albumin 2.1 g/dL (3.2-5.2); Alkaline Phosphatase 201 U/L (34-104); Anion Gap 5 mmol/L (2-11); BUN/Creatinine Ratio 15.7 (8-20); Blood Urea Nitrogen 16 mg/dL (6-24); CO2 Carbon Dioxide 21 mmol/L (22-32); Calcium 8.6 mg/dL (8.6-10.3); Chloride 108 mmol/L (101-111); EGFR African American 64.6 (>60); EGFR Non-African American 53.4 (>60); Globulin 2.2 g/dL (2-4); Glucose 103 mg/dL (70-100); Magnesium 1.7 mg/dL (1.9-2.7); Potassium 4.8 mmol/L (3.5-5.0); Sodium 134 mmol/L (135-145); Total Protein 4.3 g/dL (6.4-8.9)
[2018-06-08 18:43] LABS: Hematocrit 34 % (33-41); Hemoglobin 10.9 g/dL (12.0-16.0); Mean Corpuscular HGB Conc 32 g/dL (31-36); Mean Corpuscular Hemoglobin 36 pg (27-31); Mean Corpuscular Volume 111 fL (80-97); Platelet Count 194 10^3/uL (150-450); Red Blood Count 3.06 10^6 /uL (3.70-4.87); Red Cell Distribution Width 19 % (10.5-15); White Blood Count 25.4 10^3/uL (3.5-10.8)
[2018-06-08 18:49] LABS: Neutrophil % 84 %
[2018-06-08 18:50] LABS: Immature Granulocytes 10 % (0-9); Lymphocytes % 3 %; Monocytes % 3 %
[2018-06-08 18:52] LABS: Polychromasia 1+
[2018-06-08 18:55] LABS: ABS Neutrophils 23.9 10^3/ul (1.5-7.7)
[2018-06-08] MEDS: Mometasone/Formoter 200/5 MDI INH SCH (20:16)
[2018-06-08] MEDS: Norepinephrine 16MCG/ML IVPRE* 4,000 MCG/250 ML BAG IV SCH (20:24)
[2018-06-08] MEDS: Lidocaine Patch REMOVE* 1 NOTE MISC PATCH OFF SCH (21:23)
--- NOTE | 2018-06-08 21:28 | CONS ---
CC: Dr. Patricio Valenzuela; [facility] CONSULTATION REPORT: DATE OF CONSULT: 06/08/18 HISTORY OF PRESENT ILLNESS: The patient is a 72-year-old female, who has been transferred over from [facility] this afternoon. She is somewhat disoriented, confused, so I am unable to get much history from her, but according to the reports from [facility], she was admitted from the [facility] to the inpatient hospital on 06/04/18 suffering from abdominal pain, and at that point, was found to have white blood count elevated at 27,000. She was afebrile. She had relativel y normal chemistries, slight elevation of alkaline phosphatase, normal lipase and bilirubin, and norm al renal function. She was severely hypoalbuminemic and somewhat anticoagulated. She was maintained on intravenous antibiotics and did not seem to be improving and was transferred today to [facility]. This morning, at [facility], her white blood count remained elevated at 22,000 wi th a left shift. She has had a CT scan done there on 06/04/18 and another one this morning, and the constellation of symptoms and findings seems to be most consistent with acute cholecystitis. PHYSICAL EXAM: Today, she is somewhat obtunded, hard to get her to answer questions. Abdomen is obe se and mild diffuse tenderness, most pronounced in the right upper quadrant. There is a small umbili haim hernia, which seems to be asymptomatic. There appears to be a low midline incision, which does n ot appear to have any herniation. It is unable to say on exam whether she has any peritonitis, altho ugh does not seem so. IMPRESSION AND PLAN: A 72-year-old female with history of small cell lung cancer and atrial fibrilla tion, with anticoagulation; history of chronic obstructive pulmonary disease and asthma; morbid obesi ty; sleep apnea, who now has acute cholecystitis with signs of sepsis. At this stage, she needs to b e treated with antibiotics. She is currently in intensive care unit. I have discussed her situation with Dr. Haynes, and at this point, she would be best served by intravenous antibiotics, fluid resusci tation, and percutaneous drainage of the gallbladder, and we could entertain the possibility of elect tamy cholecystectomy few months down the road once she has recovered from this acute event. We will long e happy to follow her along with you should the need arise. Please let us know if we can be of addit ional assistance. [id number]/[facility] #: [id number]
[2018-06-08] MEDS ORDERED: Lactated Ringers 1000 ML Bag* 1,000 ML IV SCH (22:00)
--- NOTE | 2018-06-08 22:26 | OP ---
DATE OF PROCEDURE: 06/08/18 - ROOM #ICU-09 DATE OF : 46 SURGEON: Dr. Valenzuela. BRAND ADVOCATE: None. ANESTHESIOLOGIST: None. OPERATIVE PROCEDURE: Placement of central venous catheter. DESCRIPTION OF PROCEDURE: The patient is supine in the ICU bed. She is septic and requiring pressors and the hospitalist physician has asked me to place central venous catheter. The right side has what appears to be a pacemaker or something of that sort. So, left side was chosen, and the left side was prepped with antiseptic and draped in sterile fashion. Sterile drapes, gown, gloves, mask, etc., were utilized and local anesthetic was administered. Subclavian venipuncture carried out without difficulty. Guidewire passed without difficulty. Catheter passed over the guidewire without difficulty and sutured to the skin. There was good blood return. It was flushed with saline solution and then a sterile dressing was placed. She tolerated the procedure well, and chest x-ray will be obtained. [id number]/[facility] #: [id number] [facility]
--- NOTE | 2018-06-08 22:53 | PN ---
Sepsis Event Evaluation Date of Evaluation: 06/08/18 Time of Evaluation: 22:53 Current Stage of Sepsis: Septic Shock Vital Signs - Last 12 Hours: Vital Signs - 12 hr Temp Pulse Resp BP Pulse Ox 06/08/18 22:19 104 20 97 06/08/18 22:18 103 21 125/69 98 06/08/18 22:15 103 20 102/61 97 06/08/18 22:00 19 06/08/18 21:00 20 06/08/18 20:20 95 20 95 06/08/18 20:00 20 06/08/18 19:16 96.5 F 06/08/18 19:14 96.5 F 96 21 85/49 96 06/08/18 17:05 80/46 06/08/18 17:02 97.5 F 99 22 83/47 95 Lactic Acid: 06/08/18 06/08/18 17:15 21:15 Lactic Acid 2.8 H* 3.4 H* - Cardiopulmonary Exam Capillary Refill: Immediate Respiratory: Symmetrical Chest Expansion and Respiratory Effort, Clear to Auscultation Cardiovascular: RRR - Normal S1 and S2 - Peripheral Pulse Exam Radial Pulses: Bilateral Normal Pedal Pulses: Bilateral Normal Posterior Tibial Pulse: Bilateral Normal Femoral Pulses: Bilateral Normal Popliteal Pulses: Bilateral Normal - Skin Exam Skin Exam: Normal Turgor - Gali Coma Scale Best Eye Response: 4 - Spontaneous Best Motor Response: 6 - Obeys Commands Best Verbal Response: 4 - Confused Coma Scale Total: 14 Assess/Plan/Problems-Billing Assessment: Mrs Giraldo is a 72yo F with PMH of Afib, COPD, lung CA s/p chemo/radiation, who was transferred from [facility] for management of acute cholecystitis. On arrival patient in septic shock, transferred to ICU. BP improving with fluids and Levophed. Case d/w radiology (Dr Gilliland) - recommended repeat CT abd to see if there's a window for cholecystostomy. Continue IVF, pressors, Zosyn, repeat LA q4h and monitor closely in ICU.
[2018-06-08] MEDS ORDERED: Morphine 4 MG/ML VIAL (1 ml) 4 MG/ML VIAL ONE (23:00)
[2018-06-08] MEDS: Morphine 4 MG/ML VIAL (1 ml) 4 MG/ML VIAL IV PRN (23:03)
--- NOTE | 2018-06-08 23:07 | HP ---
HISTORY AND PHYSICAL: DATE OF ADMISSION: 06/08/18 PRIMARY CARE PROVIDER: Dr. Kvng Paula, oncology. PULMONOLOGY: Dr. Matilde Green. MANAGER COMMERCIAL: Derrick Giraldo, her . CODE STATUS: Full. CHIEF COMPLAINT: Nausea and vomiting, abdominal pain. SOURCE OF INFORMATION: HPI is obtained from chart review, patient's , and staff at [facility] as patient is a poor historian. HISTORY OF PRESENT ILLNESS: This is a 72-year-old female with a past medical history of COPD; oxygen and steroid dependent, МАРИНА; on nightly CPAP, atrial fibrillation; on anticoagulation, hypertension, history of limited stage small- cell lung cancer diagnosed in 2017, status post chemotherapy and radiation completed in March 2018, recent compression fracture, morbid obesity, and chronic pain; on long-term opiates who has presented from [facility] today with abdominal pain, leukocytosis, and nausea and vomiting. She has a complicated recent past medical history with admissions to [facility] for compression fracture in March, then readmission for pneumonia several weeks after that and then approximately 1 month ago, she was admitted again from [facility] with nausea, vomiting, and diarrhea. At that time, imaging showed thickened gallbladder, but no evidence of acute cholecystitis or other significant GI pathology. She returned to [facility] where she continued to have rehabilitation, although for the last 4 days reports she has had persistently increasing nausea, vomiting, and abdominal pain as well as diarrhea. Patient was placed at [facility] on cefepime and Flagyl as she had persistent leukocytosis starting 3 days prior to admission. On the day of admission, we were called by emergency department at [facility] who reported patient re-presented to the emergency room from [facility] to have imaging of her stomach, CT of the abdomen and pelvis, which showed new [id number] abdominopelvic ascites, severe hepatic steatosis, distended stomach, and extension of fat stranding next to the gallbladder and hepatic flexure without significant wall thickening of the adjacent colon and radiologist felt that it was compatible with acute cholecystitis. Emergency room physician requested ED to floor transfer for surgical evaluation of acute cholecystitis and patient was accepted for this. ARRIVAL TO FLOOR: Upon arrival to the hospital floor, patient had unstable vital signs with blood pressure 80/40 and EMS staff reported that in the course of transfer and in her hospital stay she had already received 5 L of normal saline. Patient was mildly tachycardic to the 90s. She was afebrile. She had a respiratory rate of 12 and her mental status was limited to being able to follow only basic commands and otherwise not participate in a meaningful exam. A code sepsis was called on the floor for leukocytosis, elevated lactate at 2.8, altered mental status, tachycardia with presumed biliary source. Patient was transferred to the intensive care unit for pressor support and continued evaluation of her current presentation. PAST MEDICAL HISTORY: 1. COPD, oxygen dependent. 2. МАРИНА. 3. AFib. 4. Hypertension. 5. Limited stage small-cell lung cancer diagnosed in 2017, status post chemo and radiation completed in March 2018. 6. Compression fracture. 7. Urinary retention. 8. Morbid obesity. 9. Chronic pain, on long-term opiates. PAST SURGICAL HISTORY: She is status post bilateral carpal tunnel, cataracts, hemorrhoidectomy. She has a right Mediport in place on the right and a cardiac loop recorder as well. MEDICATIONS: 1. Albuterol/ipratropium nebs 1 neb inhaled q.4 hours p.r.n. for shortness of breath. 2. Calcitonin 200 units alternate naris daily. 3. Vitamin D 1000 units p.o. q.a.m. 4. Diltiazem 360 mg p.o. q.a.m. 5. Docusate 100 mg p.o. b.i.d. 6. Fentanyl patch 37.5 mcg q.72 hours. 7. Furosemide 20 mg p.o. daily. 8. Probiotics 2 tabs p.o. daily. 9. Loperamide 2 mg p.o. q.4 hours p.r.n. for diarrhea. 10. Montelukast 10 mg p.o. daily. 11. Omeprazole 20 mg p.o. daily. 12. Ondansetron 4 mg p.o. q.6 hours. 13. Oxycodone 5 mg p.o. q.6 hours p.r.n. for pain. 14. Polyethylene glycol 17 g p.o. daily. 15. Potassium chloride 40 mEq p.o. daily. 16. Simethicone 80 mg p.o. a.c. and h.s. 17. Tamsulosin 0.4 mg p.o. at bedtime. 18. Spiriva 1 cap inhaled daily. 19. Acetaminophen 325 mg p.o. q.4 hours p.r.n. pain. 20. Atorvastatin 40 mg p.o. q.a.m. 21. Lidocaine patch 1 patch transdermal q.12 hours. 22. Dulera 1 puff inhaled b.i.d. 23. Rivaroxaban 20 mg p.o. q.p.m. ALLERGIES: CLINDAMYCIN, LEVOFLOXACIN, SULFA, CODEINE, and eggs. SOCIAL HISTORY: Prior to this hospitalization, she lived with her . Tobacco: She has a distant use of tobacco and has quit greater than 15 years ago. Alcohol: None. Illicits: None. FAMILY HISTORY: Mother has COPD. Father has diabetes. Both . REVIEW OF SYSTEMS: Unable to be completed secondary to mental status of the patient. PHYSICAL EXAMINATION GENERAL APPEARANCE: Patient is a morbidly obese woman who is minimally responsive, aside from following basic commands, pale appearing. VITAL SIGNS: On arrival to the hospital, patient's blood pressure 80/46, temperature 96.5, heart rate 99, respiratory rate 20, oxygen saturation 95% on 4 L. HEENT: Normocephalic, atraumatic. Pupils are 2 mm and only minimally reactive. Extraocular movements are intact. Moist mucous membranes. NECK: Supple. No cervical lymphadenopathy. RESPIRATORY: Patient has bilateral lower lung crackles and dullness in the left lung base. Otherwise, distant lung sounds with no wheezes. CARDIAC: She has regular rate and rhythm with 2/6 systolic ejection murmur. She has a right Mediport in place. GI: Her belly is distended, but soft, tender to palpation in the right upper epigastric. No guarding, no rebound with hypoactive bowel sounds in all 4 quadrants. SKIN: She has no evidence of rashes or lesions. MUSCULOSKELETAL: She moves all 4 extremities spontaneously. NEURO: She is unable to participate in meaningful neurologic exam or participate in orientation exam. DIAGNOSTIC STUDIES/LAB DATA: CBC on arrival, white blood cell count of 25.4, hemoglobin of 10.9, hematocrit 34, platelets 194. INR is 2.93. On CMP, sodium is 134, potassium is 4.8, chloride 108, carbon dioxide 21, creatinine 1.02, glucose is 103, lactic acid is 2.8, magnesium is 1.7. LFTs, total bilirubin of 0.6, AST is 17, ALT is 15, alkaline phosphatase is 201, lipase is less than 10. Imaging: It was completed at [facility] and images are sent to upload in radiology. The reports are as following: CT of the abdomen from today, 06/08, shows new [id number]-[id number] abdominopelvic ascites with severe hepatic steatosis, distended stomach, interval extension of fat stranding next to the gallbladder and hepatic flexure without significant wall thickening of the adjacent colon, which is noted to be more compatible with acute cholecystitis rather than colitis. Radiograph on 06/08/18 showed left base opacity and left pleural effusion, gaseous distention of the stomach, and nonspecific bowel pattern. Chest x-ray from 06/04/18 showed blunting of the left costophrenic recess, likely representing a small pleural effusion with atelectasis. Chest x-ray done on shows patient is status post left IJ triple lumen catheter with appropriate placement as well as small left pleural effusion and bilateral atelectasis. EKG was performed upon arrival, which showed sinus rhythm with no evidence of acute ischemia. Imaging reports and EKG was reviewed by myself. ASSESSMENT AND PLAN BY SYSTEM: This is a 72-year-old female with past medical history of chronic obstructive pulmonary disease; oxygen dependent, obstructive sleep apnea, paroxysmal atrial fibrillation; on anticoagulation, hypertension, recent diagnosis of limited stage small-cell lung cancer; status post radiation and chemotherapy completed in March 2018, recent compression fracture, morbid obesity who presented from [facility] with 4 days of worsening nausea, vomiting, and abdominal pain accompanied by leukocytosis and presented in septic shock from presumed biliary source. Plan by system is as follows: Cardiology: 1. Paroxysmal atrial fibrillation. Patient is currently in sinus. We are holding Xarelto and holding diltiazem. 2. Shock. Patient is in presumed septic shock, see ID for further plan. She is status post 6 L fluid. We will trend lactate. We will place on Levophed for pressor support. Pulmonology: 1.Chronic obstructive pulmonary disease, oxygen dependent. Continue home oxygen. She is currently at her baseline. Continue supportive oxygen. She has no evidence of acute exacerbation. Renal: 1. Mild acute kidney injury, on normal baseline renal function. Continue to monitor and consider Mckeon for strict Is and Os. 2. Elevated Lactic Acid: Continue to trend Gastrointestinal: 1. Evidence of acute cholecystitis. This was debated and thought to be acute diverticulitis/colitis 3 days prior to admission, although on CT scan on day of admission, radiology felt that fat stranding adjacent to the gallbladder and hepatic flexure seemed most consistent with acute cholecystitis. She has elevated alkaline phosphatase with no evidence of elevated LFTs. 2. New ascites in the setting of severe hepatic steatosis, unclear what the source of this is, possibly if GB has ruptured? She has no evidence of acute hepatic decompensation. She has no history of cirrhosis. Will consult GI and possibly IR if patient needs to be acutely decompressed and continue to monitor with subsequent CT scans. 3. Gastroesophageal reflux disease. Continue PPI. Infectious Disease: 1. Septic shock secondary to presumed biliary source. Patient has been on cefepime and metronidazole 3 days prior to admission. We will cover currently with Zosyn. She has no other obvious source. Blood cultures and urine cultures have been obtained and we will continue to follow on culture data. Musculoskeletal: 1. Compression fracture. Patient has recent stable compression fracture and is currently just being treated with Tylenol and opiate pain medication secondary to altered mental status. We will continue to hold opiate pain medication until mental status improves. Neurologic: 1. Patient arrives altered and is thought to be secondary to pain medication administration and septic shock. Continue pressor support as well as hold sedating medications until patient returns to baseline. Endocrine: No active issues at this time. Hospital issues: 1. DVT prophylaxis. Patient is on Xarelto at baseline and this is held in the setting of possible need for intervention on septic shock for biliary source. 2. FEN. The patient is currently n.p.o. 3. Lines and tubes. Patient has a left subclavian catheter placed on . She also has an old Mediport on the right side that was not placed at [facility] in October 2017 4. Code status is full. This was discussed with her on the day of admission. TIME SPENT: Sixty minutes were spent in the planning and triage of this admission with over half of that spent directly at the bedside of the patient providing direct patient care. This patient also needed critical care time of 35 minutes on arrival as she arrived in septic shock. Plan reviewed with the patient's family who are in agreement. [id number]/[facility] #: [id number] CR
[2018-06-09] MEDS ORDERED: Iodixanol* (CONTRAST) 320 MG/ML 100 ML SDV IV ONE (00:27)
[2018-06-09] MEDS: Morphine 4 MG/ML VIAL (1 ml) 4 MG/ML VIAL IV PRN (01:31)
[2018-06-09] MEDS: ZOSYN 3.375 GM Q8H per EXTENDED INFUSION IVPB SCH ×8 (01:45→23:31)
--- NOTE | 2018-06-09 02:22 | PN ---
Hospitalist Progress Note Date of Service: 06/09/18 HOSPITALIST ADDENDUM Called by dynamics ax technical architect because patient's Left subclavian TLC was accidentally dislodged during preparations for CT. Right port was accessed and Levophed infusion continued. Selected Entries 06/09/18 06/09/18 06/09/18 01:34 01:45 02:00 Temperature 97.3 F Heart Rate 101 Respiratory 19 Rate Blood Pressure 117/49 (mmHg) O2 Sat by Pulse [address] abd/pelvis results and Radiology decision re: cholecystostomy.
--- NOTE | 2018-06-09 04:07 | PN ---
Hospitalist Progress Note Date of Service: 06/09/18 HOSPITALIST ADDENDUM Case reviewed and d/w Dr Gilliland. CT shows GB wall thickening with no radiopaque calculi. She has some ascitesand suggestion of colitis. I suspect she has had a biliary process all along and the colonic process is local progression of her RUQ process. As her GB is not distended now, Dr Gilliland brings up the concern of possible GB rupture - this was d/w Dr Valenzuela and he'll re-evaluate. Plan to continue current management with IVF, pressors, Zosyn, and repeat RUQ US.
[2018-06-09 05:43] LABS: Hematocrit 32 % (33-41); Mean Corpuscular HGB Conc 32 g/dL (31-36); Mean Corpuscular Hemoglobin 35 pg (27-31); Mean Corpuscular Volume 111 fL (80-97); Mean Platelet Volume 9.7 fL (7.4-10.4); Platelet Count 151 10^3/uL (150-450); Red Blood Count 2.84 10^6 /uL (3.70-4.87); Red Cell Distribution Width 19 % (10.5-15); White Blood Count 27.9 10^3/uL (3.5-10.8)
[2018-06-09 06:03] LABS: Calcium 8.6 mg/dL (8.6-10.3); Potassium 4.3 mmol/L (3.5-5.0)
[2018-06-09 06:09] LABS: ABS Basophils 0.1 10^3/ul (0-0.2); ABS Eosinophils 0.6 10^3/ul (0-0.6); ABS Lymphocytes 0.4 10^3/ul (1.0-4.8); ABS Monocytes 0.7 10^3/ul (0-0.8); ABS Neutrophils 26.1 10^3/ul (1.5-7.7); ABS Nucleated RBC 0 10^3/ul; BUN/Creatinine Ratio 17.3 (8-20); EGFR African American 63.2 (>60); EGFR Non-African American 52.2 (>60); Eosinophil % 2.1 %; Lymphocyte % 1.5 %; Nucleated Red Blood Cells % 0.1
[2018-06-09] MEDS: Norepinephrine 16MCG/ML IVPRE* 4,000 MCG/250 ML BAG IV SCH (08:00)
[2018-06-09] MEDS: Mometasone/Formoter 200/5 MDI INH SCH ×2 (08:10→22:38)
[2018-06-09] MEDS ORDERED: Atorvastatin* 40 MG TAB PO SCH (09:00)
[2018-06-09] MEDS: Lidocaine PATCH 5%* 1 PATCH TRANSDERM SCH (12:19)
[2018-06-09] MEDS: metroNIDAZOLE IV 500 MG/100ML* 500 MG/100 ML BAG IVPB SCH ×2 (12:32→21:04)
[2018-06-09] MEDS: Vancomycin CAP* 250 MG CAP PO SCH ×2 (12:55→13:03)
[2018-06-09] MEDS ORDERED: EPINEPHrine SYR 0.1MG/ML* SYRINGE ONE (13:55)
[2018-06-09] MEDS ORDERED: Succinylcholine* 20 MG/ML 10 ML VIAL ONE (13:57)
[2018-06-09] MEDS ORDERED: Etomidate* 2 MG/ML 20 ML VIAL (40 MG) ONE (14:00)
[2018-06-09] MEDS ORDERED: Propofol* 100 ML ONE (14:06)
[2018-06-09] MEDS ORDERED: NS 0.9% 1000 ML** 1,000 ML IV ONE (14:14)
[2018-06-09] MEDS ORDERED: Rocuronium* 10 MG/ML VIAL ONE ×3 (14:21→17:55)
[2018-06-09] MEDS ORDERED: fentaNYL* 50 MCG/ML 2 ML VIAL (100 MCG VIAL) ONE (14:23)
[2018-06-09] MEDS: VANCOMYCIN PO SOLN* 125 MG/5ML 25 MG/ML PO SCH ×2 (14:45→21:09)
[2018-06-09] MEDS ORDERED: Pantoprazole IV* 40 MG IV SCH (15:00)
[2018-06-09] MEDS ORDERED: Bupivacaine 0.25% SDV PF* 10 ML VIAL INJ ONE (15:20)
[2018-06-09] MEDS: Chlorhexidine MOUTHWASH 0.12%* 15 ML UDC TOPICAL SCH ×3 (15:24→23:31)
[2018-06-09 15:55] LABS: Hematocrit 29 % (33-41); Hemoglobin 9.3 g/dL (12.0-16.0); Mean Corpuscular HGB Conc 33 g/dL (31-36); Mean Corpuscular Hemoglobin 37 pg (27-31); Mean Corpuscular Volume 112 fL (80-97); Mean Platelet Volume 9.7 fL (7.4-10.4); Platelet Count 110 10^3/uL (150-450); Red Blood Count 2.55 10^6 /uL (3.70-4.87); Red Cell Distribution Width 20 % (10.5-15); White Blood Count 21.6 10^3/uL (3.5-10.8)
[2018-06-09] MEDS ORDERED: Albumin Human 5%* 12.5 GM/250 ML BTL IV ONE (16:00)
[2018-06-09] MEDS ORDERED: Heparin DIALYSIS ONLY(*) 1,000 UNITS/ML VIAL ONE (16:09)
[2018-06-09 16:11] LABS: Urine Appearance Cloudy; Urine Bacteria Absent (Absent); Urine Bilirubin Negative (Negative); Urine Blood Negative (Negative); Urine Color Amber; Urine Glucose Negative (Negative); Urine Ketones Trace (Negative); Urine Nitrite Negative (Negative); Urine Protein 1+(30 mg/dL) (Negative); Urine Red Blood Cell Absent (Absent); Urine Specific Gravity > 1.060 (1.010-1.030); Urine Squamous Epithelial Cell Present (Absent); Urine Urobilinogen Negative (Negative); Urine White Blood Cell 1+(6-10/hpf) (Absent)
[2018-06-09 16:19] LABS: BUN/Creatinine Ratio 19.2 (8-20); Calcium 8.6 mg/dL (8.6-10.3); EGFR African American 63.2 (>60); EGFR Non-African American 52.2 (>60); Potassium 4.2 mmol/L (3.5-5.0)
[2018-06-09] MEDS ORDERED: Midazolam* 1 MG/ML 5 ML VIAL (5 MG) ONE (17:37)
--- NOTE | 2018-06-09 17:41 | OP ---
Operative Report - Blank - Operative Report Date of Operation: 06/09/18 Note: Indication: Respiratory Distress; increased work of breathing I personally performed the entire procedure Emergent intubation performed without time-out. The patient was placed in an appropriate position. Sedation was obtained using Etomidate 20 mg. The patient was easily ventilated using an ambu bag. The [employer] with 4 blade was used and inserted into the oropharynx at which time there was a Grade 1 view of the vocal cords. A 7.5-cymraes endotracheal tube was inserted and visualized going through the vocal cords. The stylette was removed. Colorimetric change was visualized on the CO2 meter. Breath sounds were heard in both lung rapp equally. The endotracheal tube was placed at 25 cm, measured at the lip. Chest x-ray confirmed ETT just above the senthil. No pneumothorax was noted on the CXR. ETT was pulled 3 cm away from the senthil. The patient tolerated the procedure well and there were no complications.
[2018-06-09] MEDS ORDERED: Norepinephrine VIAL* 1 MG/ML 4 ML VIAL ONE (17:46)
--- NOTE | 2018-06-09 17:48 | HP ---
History of Present Illness - History of Present Illness Reason for Visit: Septic shock History of Present Illness: 72 yo F with a past medical history of morbid obesity, COPD, chronic hypoxemic respiratory failure on home O2, steroid dependance, МАРИНА on nightly CPAP, atrial fibrillation Xarelto, hypertension, small-cell lung cancer diagnosed in 2018 status post chemotherapy and radiation completed in March 2018, recent compression fracture, morbid obesity, and chronic pain; on long-term opiates who has presented from [facility] with with abdominal pain, leukocytosis , and nausea and vomiting. Due to concerns of acute cholecystitis based on CT A /P she was transferred to [facility]. The CT was concerning for additional findings of ascites, severe hepatic steatosis, distended stomach, and extension of fat stranding next to the gallbladder and hepatic flexure without significant wall thickening of the adjacent colon. 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 In the interim, she was intubated due to concerns with WOB - Past Medical History Cardiac: AFIB, HTN Pulmonary: COPD, Other - CHRONIC HYPOXEMIC RESPIRATORY FAILURE, МАРИНА ON CPAP Heme/Onc: Cancer - Small cell Ca s/p XRT/CHT completed 03/2018 Musculoskeletal: Other - compression fracture Renal/: Other - urinary retention Endocrine: Other - morbid obesity - Past Surgical History Past Surgical History: Cataract Removal, Other - carpal tunnel repair, hemorrhoidectomy; s/p medi port (R) and L cardiac loop recorder - Past Social History Smoke: Quit - >15 years ago Alcohol: None Drugs: None Lives: With Family Review of Systems - Review of Systems Constitutional: Positive: Weakness Eyes: Positive: Pain ENT: Negative: Ear Pain, Ear Discharge Respiratory: Positive: Shortness of Breath, SOB with Excertion. Negative: Hemoptysis, Wheezing Cardiovascular: Positive: Edema. Negative: Chest Pain, Palpitations Gastrointestinal: Positive: Nausea, Vomiting, Abdominal Pain, Diarrhea Musculoskeletal: Negative: Neck Pain, Shoulder Pain Skin: Negative: Rash, Lesions Neurological: Positive: Weakness - Medications/Allergies Allergies/Adverse Reactions: Allergies Allergy/AdvReac Type Severity Reaction Status Date / Time clindamycin Allergy Severe Rash Verified 03/26/18 10:18 Egg Derived Allergy Severe Difficulty Verified 03/26/18 10:18 Swallowing levofloxacin Allergy Severe Rash Verified 03/26/18 10:18 Sulfa (Sulfonamide Allergy Severe Rash Verified 03/26/18 10:18 Antibiotics) codeine AdvReac Severe severe Verified 03/26/18 12:20 tachycardia Medications: Current Medications Acetaminophen (Tylenol Tab*) 650 mg PO Q4H PRN PRN Reason: pain/fever Atorvastatin Calcium (Lipitor*) 40 mg PO QAM COUNT INCLUDES THE [facility] Last Admin: 06/09/18 12:55 Dose: 40 mg Chlorhexidine Gluconate (Peridex Mouth Wash 0.12%*) 15 ml TOPICAL Q4H COUNT INCLUDES THE [facility] Last Admin: 06/09/18 15:24 Dose: Not Given Heparin Sodium (Porcine) (Heparin Vial(*)) 5,000 units SUBCUT Q8HR COUNT INCLUDES THE [facility] Piperacillin Sod/Tazobactam (Sod 3.375 gm/ Sodium Chloride) 100 mls @ 25 mls/ hr IVPB Q8H COUNT INCLUDES THE [facility] Last Admin: 06/09/18 09:55 Dose: 25 mls/hr Norepinephrine Bitartrate (Levophed 16 Mcg/Ml Premix Bag*) 4,000 mcg in 250 mls @ 30 mls/hr IV .PER PROTOCOL COUNT INCLUDES THE [facility]; Protocol Last Admin: 06/09/18 08:00 Dose: 30 mls/hr Metronidazole/Sodium Chloride (Flagyl 500 Mg Ivpb*) 500 mg in 100 mls @ 100 mls /hr IVPB Q8H COUNT INCLUDES THE [facility] Last Admin: 06/09/18 12:32 Dose: 100 mls/hr Lidocaine (Lidoderm 5% Patch*) 1 patch TRANSDERM DAILY COUNT INCLUDES THE [facility] Last Admin: 06/09/18 12:19 Dose: Not Given Mometasone Furoate/Formoterol Fumar (Dulera 200/5 Mdi*) 1 puff INH BID COUNT INCLUDES THE [facility] Last Admin: 06/09/18 08:10 Dose: 1 puff Morphine Sulfate (Morphine Vial*) 1 mg IV Q2H PRN PRN Reason: SEVERE PAIN Last Admin: 06/09/18 01:31 Dose: 1 mg Pantoprazole Sodium (Protonix Iv*) 40 mg IV Q24H COUNT INCLUDES THE [facility] Pharmacy Consult (Zosyn Per Pharmacy*) 1 note FOLLOW UP .ZOSYN PER PHARMACY COUNT INCLUDES THE [facility] Pharmacy Profile Note (Lidocaine Patch Remove*) 1 note PATCH OFF 2100 COUNT INCLUDES THE [facility] Last Admin: 06/08/18 21:23 Dose: Not Given Vancomycin HCl (Firvanq*) 250 mg PO Q6H COUNT INCLUDES THE [facility] Last Admin: 06/09/18 14:45 Dose: 250 mg Exam - Exam Vital Signs: Vital Signs (72 hours) 06/08/18 06/08/18 06/08/18 17:02 17:05 19:14 Temperature 97.5 F 96.5 F Pulse Rate 99 96 Respiratory 22 21 Rate Blood Pressure 83/47 80/46 85/49 (mmHg) O2 Sat by Pulse 95 96 Oximetry 06/08/18 06/08/18 06/08/18 19:16 20:00 20:20 Temperature 96.5 F Pulse Rate 95 Respiratory 20 20 Rate Blood Pressure (mmHg) O2 Sat by Pulse 95 Oximetry 06/08/18 06/08/18 06/08/18 21:00 22:00 22:15 Temperature Pulse Rate 103 Respiratory 20 19 20 Rate Blood Pressure 102/61 (mmHg) O2 Sat by Pulse 97 Oximetry 06/08/18 06/08/18 06/08/18 22:18 22:19 22:33 Temperature Pulse Rate 103 104 104 Respiratory 21 20 22 Rate Blood Pressure 125/69 135/56 (mmHg) O2 Sat by Pulse 98 97 98 Oximetry 06/08/18 06/08/18 06/08/18 22:45 23:00 23:01 Temperature Pulse Rate 104 105 104 Respiratory 21 20 20 Rate Blood Pressure 137/68 139/88 (mmHg) O2 Sat by Pulse 98 97 99 Oximetry 06/08/18 06/08/18 06/08/18 23:03 23:04 23:15 Temperature Pulse Rate 105 103 Respiratory 19 20 19 Rate Blood Pressure 114/74 (mmHg) O2 Sat by Pulse 98 98 Oximetry 06/08/18 06/08/18 06/09/18 23:30 23:46 00:00 Temperature Pulse Rate 103 103 103 Respiratory 17 18 18 Rate Blood Pressure 104/71 118/62 100/60 (mmHg) O2 Sat by Pulse 98 97 98 Oximetry 06/09/18 06/09/18 06/09/18 00:01 01:00 01:31 Temperature Pulse Rate 103 102 Respiratory 16 18 18 Rate Blood Pressure (mmHg) O2 Sat by Pulse 99 98 Oximetry 06/09/18 06/09/18 06/09/18 01:32 01:34 01:45 Temperature 97.3 F Pulse Rate 102 99 Respiratory 19 19 Rate Blood Pressure 118/54 117/49 (mmHg) O2 Sat by Pulse 98 97 Oximetry 06/09/18 06/09/18 06/09/18 02:00 02:45 03:00 Temperature Pulse Rate 101 103 102 Respiratory 20 22 16 Rate Blood Pressure 129/66 127/68 (mmHg) O2 Sat by Pulse 98 96 98 Oximetry 06/09/18 06/09/18 06/09/18 03:15 03:30 03:45 Temperature 97.5 F Pulse Rate 103 102 102 Respiratory 18 17 16 Rate Blood Pressure 131/71 107/74 118/65 (mmHg) O2 Sat by Pulse 95 97 96 Oximetry 06/09/18 06/09/18 06/09/18 04:00 04:15 04:30 Temperature Pulse Rate 103 105 103 Respiratory 17 20 16 Rate Blood Pressure 122/64 108/49 102/53 (mmHg) O2 Sat by Pulse 97 97 98 Oximetry 06/09/18 06/09/18 06/09/18 04:45 05:00 05:15 Temperature Pulse Rate 103 103 102 Respiratory 16 16 18 Rate Blood Pressure 102/52 106/51 94/53 (mmHg) O2 Sat by Pulse 98 98 97 Oximetry 06/09/18 06/09/18 06/09/18 05:30 05:37 05:45 Temperature Pulse Rate 103 103 Respiratory 17 19 Rate Blood Pressure 115/51 99/50 (mmHg) O2 Sat by Pulse 98 98 97 Oximetry 06/09/18 06/09/18 06/09/18 06:00 06:01 06:15 Temperature Pulse Rate 104 104 105 Respiratory 17 19 18 Rate Blood Pressure 109/53 100/54 (mmHg) O2 Sat by Pulse 97 97 97 Oximetry 06/09/18 06/09/18 06/09/18 06:30 06:45 07:00 Temperature Pulse Rate 106 107 106 Respiratory 21 20 19 Rate Blood Pressure 101/55 114/57 106/54 (mmHg) O2 Sat by Pulse 95 96 97 Oximetry 06/09/06/09/06/09/18 07:01 07:15 07:30 Temperature Pulse Rate 106 107 106 Respiratory 19 23 18 Rate Blood Pressure 109/55 111/53 (mmHg) O2 Sat by Pulse 97 97 98 Oximetry 06/09/1818/06/09/18 07:45 08:00 08:01 Temperature 96.2 F Pulse Rate 107 109 108 Respiratory 23 21 22 Rate Blood Pressure 94/72 119/54 (mmHg) O2 Sat by Pulse 98 97 97 Oximetry 06/09/18 06/09/18 06/09/18 08:11 08:15 08:30 Temperature Pulse Rate 105 107 107 Respiratory 18 22 21 Rate Blood Pressure 113/62 114/58 (mmHg) O2 Sat by Pulse 97 97 98 Oximetry 06/09/18 06/09/18 06/09/18 08:45 09:00 09:01 Temperature Pulse Rate 107 109 109 Respiratory 20 19 19 Rate Blood Pressure 103/64 125/65 (mmHg) O2 Sat by Pulse 97 98 98 Oximetry 06/09/18 06/09/18 06/09/18 09:15 09:30 09:45 Temperature Pulse Rate 110 108 107 Respiratory 20 22 22 Rate Blood Pressure 123/63 98/59 112/56 (mmHg) O2 Sat by Pulse 97 97 97 Oximetry 06/09/18 06/09/18 06/09/18 10:00 10:01 10:15 Temperature Pulse Rate 110 110 111 Respiratory 21 23 21 Rate Blood Pressure 134/53 115/64 (mmHg) O2 Sat by Pulse 97 97 96 Oximetry 06/09/18 06/09/18 06/09/18 10:30 10:45 11:00 Temperature Pulse Rate 110 113 110 Respiratory 20 24 21 Rate Blood Pressure 129/63 118/64 135/67 (mmHg) O2 Sat by Pulse 97 97 97 Oximetry 06/09/18 06/09/18 06/09/18 11:15 11:30 11:45 Temperature Pulse Rate 110 112 112 Respiratory 18 24 26 Rate Blood Pressure 119/64 120/64 129/62 (mmHg) O2 Sat by Pulse 96 97 97 Oximetry 06/09/18 06/09/18 06/09/18 11:51 12:00 12:15 Temperature 96.1 F Pulse Rate 113 110 Respiratory 21 25 Rate Blood Pressure 119/67 118/67 (mmHg) O2 Sat by Pulse 97 97 Oximetry 06/09/18 06/09/18 06/09/18 12:30 12:45 13:00 Temperature Pulse Rate 108 108 108 Respiratory 22 23 24 Rate Blood Pressure 103/56 132/66 116/56 (mmHg) O2 Sat by Pulse 97 97 97 Oximetry 06/09/18 06/09/18 06/09/18 13:15 13:30 13:45 Temperature Pulse Rate 108 108 107 Respiratory 26 23 23 Rate Blood Pressure 119/57 120/61 128/57 (mmHg) O2 Sat by Pulse 97 96 97 Oximetry 06/09/18 06/09/18 06/09/18 14:00 14:01 14:05 Temperature Pulse Rate 108 107 107 Respiratory Rate Blood Pressure 115/60 121/102 (mmHg) O2 Sat by Pulse 97 94 98 Oximetry 06/09/18 06/09/18 06/09/18 14:10 14:15 14:20 Temperature Pulse Rate 102 102 102 Respiratory Rate Blood Pressure 122/65 119/73 114/62 (mmHg) O2 Sat by Pulse 99 97 97 Oximetry 06/09/18 06/09/18 06/09/18 14:25 14:31 14:35 Temperature Pulse Rate 102 111 105 Respiratory Rate Blood Pressure 123/63 121/69 109/67 (mmHg) O2 Sat by Pulse 96 96 88 Oximetry 06/09/18 06/09/18 06/09/18 14:40 14:45 14:50 Temperature Pulse Rate 103 99 100 Respiratory Rate Blood Pressure 119/61 106/59 113/59 (mmHg) O2 Sat by Pulse 95 96 97 Oximetry 06/09/18 06/09/18 06/09/18 14:55 15:00 15:01 Temperature Pulse Rate 99 99 99 Respiratory Rate Blood Pressure 114/59 98/56 (mmHg) O2 Sat by Pulse 96 94 95 Oximetry 06/09/18 06/09/18 15:05 15:44 Temperature Pulse Rate 105 Respiratory Rate Blood Pressure 126/56 (mmHg) O2 Sat by Pulse 96 96 Oximetry General: Alert, Oriented x3, Cooperative HEENT: Atraumatic, EOMI, Other - Dry mucosa Lungs: Clear to auscultation Cardiovascular: Regular rate, Normal S1, Normal S2 Abdomen: Soft, Other - tender to light palpation generalized, hypoactive bowel sounds, no rebound/guarding Extremities: No clubbing, No cyanosis Skin: No rashes, No breakdown Neurological: Cranial nerves 3-12 NL Assessment/Plan - Assessment/Plan Assessment: 72 yo F with hx/o chroinic hypoxemic respiratory failure, COPD, morbid obesity, SCC s/p XRT/CHT admitted for N/V/abd pain with diarrhea with septic shock, increase work of breathing Septic shock Lactemia Acute colitis with possible peritonitis vs acute cholecystis Increased work of breathing due to shock s/p intubation 06/09 Leukocytosis 27-->21 anemia Coagulopathy 2.93 likely due to sepsis HAZEL Plan: - MAP >65 - Discussed with Dr. Ballesteros, plan for possible ex lap today for possible source control - continue with zosyn, flagyl IV, and po vanc - C-DIFF pending - blood cultures x 2 in lab - vent bundle - [facility] vent: cmv, vt 400, PEEP 8, RR 16 - adjust vent settings according to ABG DVT ppx: autocoagulated with high INR 2.93 GI ppx: H2B oral care with chlorhexidine Code status: full code prognosis: grave Critical care issues: septic shock, acute vent dependance/acute respiratory failure Critical care time: 75 minutes
[2018-06-09] MEDS ORDERED: KETAMINE HCL* 50 MG/ML 10 ML VIAL ONE (17:57)
[2018-06-09 18:09] LABS: Immature Granulocytes 24 % (0-9); Lymphocytes % 3 %; Monocytes % 8 %; Neutrophil % 65 %
[2018-06-09 18:12] LABS: ABS Neutrophils 19.2 10^3/ul (1.5-7.7)
[2018-06-09] MEDS ORDERED: Famotidine SUSP ORALSYR 8 MG/ML FEED TUBE ONE (18:30)
[2018-06-09] MEDS ORDERED: Midazolam* 1 MG/ML 2 ML VIAL (2 MG) ONE (18:36)
[2018-06-09] MEDS: Propofol* 100 ML IV SCH (19:09)
--- NOTE | 2018-06-09 19:12 | BRIEFOPN ---
Brief Operative Note - Surgery Procedures: Procedures OPERATIVE REPORT Pre-op: Sepsis, peritonitis Post-Op: Same, perforation of gallbladder with bile peritonitis Procedure:Laparoscopy, exploratory laparotomy, oversew of cystic duct, wound vac placement of open abdomen Surgeon: MD Lesli Asst: JOLLY Hodgson Anes: general with Dr. Indira Dr. Ney IVF:3100 cc crystalloid, 4 u FFP, 250 cc albumin EBL:150cc Specimen: None Drain: VIVIAN drain #10 Wound: 4 To ICU, intubated
[2018-06-09] MEDS: Lidocaine Patch REMOVE* 1 NOTE MISC PATCH OFF SCH (21:05)
[2018-06-09 21:37] LABS: Activated Partial Thrombo Time 47.4 seconds (26.0-36.3); INR 1.88 (0.77-1.02)
[2018-06-09] MEDS ORDERED: Heparin VIAL(*) 5000 UNITS/ML VIAL (FIVE THOUSAND) SUBCUT SCH (22:00)
--- NOTE | 2018-06-10 03:20 | OP ---
DATE OF OPERATION: 06/09/18 - ROOM #ICU-09 DATE OF : 47 SURGEON: Vitaly Ballesteros MD. DRY CLEANING MACHINE OPERATOR HELPER: JOLLY Bustillos. ANESTHESIOLOGIST: Dr. Field as well as Dr. Gaitan. ANESTHESIA: General. PRE-OP DIAGNOSIS: Sepsis with peritonitis. POST-OP DIAGNOSES: 1. Sepsis with peritonitis. 2. Perforated gallbladder with bile peritonitis. OPERATIVE PROCEDURES: Diagnostic laparoscopy, exploratory laparotomy with drainage of right upper quadrant, and placement of wound VAC on open abdomen. IV FLUIDS: 3100 cc of crystalloid, 4 units of fresh frozen plasma, and 250 cc of albumin. SPECIMENS: None. DRAINS: A #10 VIVIAN drain in the right upper quadrant. WOUND CLASSIFICATION: IV. COMPLICATIONS: None. BRIEF HISTORY: Ms. Kassandra Giraldo is a 72-year-old woman transferred from [facility] yesterday with several days of severe abdominal discomfort. She was found to be septic requiring Levophed for blood pressure maintenance despite fluid resuscitation. She has been started on broad-spectrum IV antibiotics and a CAT scan showed findings of free intra-abdominal fluid with concern for right- sided colitis as well as a mildly thickened gallbladder wall. In light of her physical exam and overt sepsis, despite having significant multiple medical comorbidities, it is recommended that she be taken to the operating room for diagnostic laparoscopy, possible laparotomy. Please see the separate hand written note in discussion with the patient and her in this regard, including the risks, benefits and alternatives. DESCRIPTION OF PROCEDURE: Written informed consent was obtained, the patient was already on IV antibiotics, and the abdomen was marked with indelible ink. She was taken to the operating room and placed in the supine position. Sequential compression devices and warming blanket were applied. A right radial artery blood pressure monitoring catheter was placed as well as a right internal jugular vein triple lumen catheter without difficulty. The patient had been previously intubated and general anesthesia was administered. The abdomen was prepped and draped in the usual sterile fashion. Time-out verification was completed. Initially, a small vertical incision was made at the midline above the umbilicus. The peritoneal cavity was entered under direct vision. A 12-mm blunt port was inserted and the abdomen was insufflated to 250 mmHg. On placement of the camera, it was obvious that there was bilious fluid in all 4 quadrants with fibrinous exudate, and omentum and small bowel adherent to the anterior abdominal wall mainly in the pelvis. With these findings and due to the patient's obesity, decision was made to proceed with an open laparotomy for adequate visualization and evaluation. Midline incision was then extended superiorly and inferiorly from our initial port site. In all 4 quadrants, there was bilious turbid fluid. Cultures were sent of this. The small bowel was adherent to the anterior abdominal wall mainly in the pelvis and all these loculations were digitally broken up. I was able to identify then the ligament of Treitz and ran the entire small bowel. Other than being somewhat inflamed with mild peritonitis, I appreciated no abnormalities, perforation, mass, or obstruction down to the terminal ileum as it entered the cecum. The appendix had been previously removed. The cecum and ascending colon were soft and pliable without evidence of colitis or other abnormality. In the right upper quadrant, there was quite a bit of bilious fluid up over the liver and this was irrigated. The transverse colon in its mid to distal portion was identified and this was unremarkable.The left colon was normal. Attention was turned in the right upper quadrant, and it was apparent that the right hepatic flexure of the colon was quite adherent and knuckled down up under the liver somewhat. Lysing some adhesions to identify and expose the lower portion of the liver, I identified an opening/hole in what appeared to be the top of the gallbladder which was leaking bile. Initially, this was difficult to identify as the gallbladder as it was thick walled and whitish in color, but with careful dissection and identification of the stomach, pylorus, and the duodenal sweep, which appeared to be normal without evidence of abnormality and the fact that this did not appear to be colon, this logically appeared to be the gallbladder. I then placed an instrument within the lumen and I opened up the gallbladder from top down to "fillet" it open. There were no stones or sludge noted. Continued to follow this dissection into more in the infundibulum with care. This was quite inflamed and adherent to the proximal transverse colon and I made no attempt to try to perform a cholecystectomy. With care opening up the gallbladder down towards the infundibular area, I felt I identified what was the cystic duct orifice with bile welling up at the base of this. I was able to use a probe and this passed several centimeters easily and I believe this was being passed into the cystic duct. The infundibulum and the cystic duct orifice were then lifted up with an Allis clamp and oversewn with a [id number] 0 Vicryl suture on a needle. This stopped the leak of bile. Hemostasis was assured in this area. A decision was then made to place a #10 VIVIAN drain up into the gallbladder fossa and this was exited through a separate stab wound in the right side of the abdominal wall. No other abnormalities were noted on the colon. The stomach as mentioned was also unremarkable. A new nasogastric tube was inserted. Then used a copious amount of sterile saline to irrigate all 4 quadrants of the abdomen. During the case, the patient was requiring Levophed for blood pressure maintenance as well as continued IV fluids and made a decision not to close the abdominal cavity with plans to return for another washout in 24 to 48 hours. Thus, a large Ioban drape was folded in half and pie crusted and placed in the abdomen over the viscera and omentum. A wound VAC was then placed over the Ioban in the usual fashion and placed to 50 mmHg suction. The patient tolerated the procedure well. She was taken back to the intensive care unit, intubated, in stable but critical condition. [id number]/[facility] #: [id number] CR
[2018-06-10] MEDS: Chlorhexidine MOUTHWASH 0.12%* 15 ML UDC TOPICAL SCH ×6 (03:40→22:12)
[2018-06-10 05:54] LABS: ABS Basophils 0.2 10^3/ul (0-0.2); ABS Eosinophils 0.4 10^3/ul (0-0.6); ABS Lymphocytes 0.5 10^3/ul (1.0-4.8); ABS Monocytes 0.4 10^3/ul (0-0.8); ABS Neutrophils 20.5 10^3/ul (1.5-7.7); ABS Nucleated RBC 0.1 10^3/ul; Eosinophil % 1.8 %; Hematocrit 25 % (33-41); Hemoglobin 7.8 g/dL (12.0-16.0); Lymphocyte % 2.5 %; Mean Corpuscular HGB Conc 32 g/dL (31-36); Mean Corpuscular Hemoglobin 36 pg (27-31); Mean Corpuscular Volume 113 fL (80-97); Mean Platelet Volume 9.6 fL (7.4-10.4); Nucleated Red Blood Cells % 0.4; Platelet Count 107 10^3/uL (150-450); Red Blood Count 2.18 10^6 /uL (3.70-4.87); Red Cell Distribution Width 20 % (10.5-15)
[2018-06-10 05:56] LABS: INR 1.66 (0.77-1.02)
[2018-06-10 06:09] LABS: Albumin 2.1 g/dL (3.2-5.2); Albumin/Globulin Ratio 1.1 (1-3); BUN/Creatinine Ratio 23.2 (8-20); Calcium 8.7 mg/dL (8.6-10.3); EGFR African American 83.2 (>60); EGFR Non-African American 68.7 (>60); Globulin 1.9 g/dL (2-4); Potassium 3.7 mmol/L (3.5-5.0)
[2018-06-10] MEDS: Norepinephrine 16MCG/ML IVPRE* 4,000 MCG/250 ML BAG IV SCH (07:32)
[2018-06-10] MEDS: Propofol* 100 ML IV SCH (07:34)
[2018-06-10] MEDS: Mometasone/Formoter 200/5 MDI INH SCH (08:32)
[2018-06-10] MEDS: Morphine 4 MG/ML VIAL (1 ml) 4 MG/ML VIAL IV PRN (08:56)
[2018-06-10] MEDS: ZOSYN 3.375 GM Q8H per EXTENDED INFUSION IVPB SCH ×4 (08:58→15:17)
[2018-06-10] MEDS ORDERED: NS 0.9% 1000 ML** 1,000 ML IV ONE (10:07)
[2018-06-10] MEDS ORDERED: Norepinephrine 16MCG/ML IVPRE* 4,000 MCG/250 ML BAG IV SCH (10:10)
[2018-06-10] MEDS ORDERED: Docusate LIQ* 100 MG/10 ML UDC PO PRN (10:13)
[2018-06-10] MEDS ORDERED: Bisacodyl SUPP* 10 MG SUPP PR PRN (10:13)
[2018-06-10] MEDS: Lidocaine PATCH 5%* 1 PATCH TRANSDERM SCH (10:37)
[2018-06-10] MEDS: fentaNYL INFUSION 50 MCG/ML* 2,500 MCG/50 ML BAG IV SCH (11:46)
--- NOTE | 2018-06-10 11:47 | ECHO ---
Patient: ZELDA NAYLOR Rec#: [id number] : 1945 Date: 06/10/2018 Age: 72y Height: 163 cm / 64.2 in Weight: 111 kg / 244.6 lbs Sex: F BSA: 2.14 Room#: ICU 9 Admit Date#: 06/08/2018 Type: Inpatient Referring: Brown Monzon Reading: Abhishek Beck MD Plastic Finisher: Oksana Caro RDCS,RDMS CC: Lorelei Pickett MD Transthoracic Echocardiogram Indication: Valvular Disease BP: 135/44 HR: 102 Rhythm: Tachycardia Findings History: Peritonitis. COPD, AFIB, small cell lung cancer, chemotherapy, HTN, МАРИНА, chronic respiratory failure. Technical Comments: The study quality is fair. Left Ventricle: The left ventricular chamber size is normal. Mild concentric left ventricular hypertrophy is observed. Global left ventricular wall motion and contractility are within normal limits. The left ventricle appears hyperdynamic. The estimated ejection fraction is 60-65%. There is an E to A reversal in the mitral valve flow pattern suggestive of diastolic dysfunction. Left Atrium: The left atrium is severely dilated. Right Ventricle: The right ventricle wall thickness is mildly increased. The right ventricular cavity size is normal. The right ventricular global systolic function is hyperdynamic. Right Atrium: The right atrium is moderate to severely dilated. Aortic Valve: The aortic valve is trileaflet. The aortic valve leaflets are mildly thickened. There is no evidence of aortic regurgitation. There is no evidence of aortic stenosis. Mitral Valve: There is mitral annular calcification. Mild mitral leaflet calcification is visualized. There is no evidence of mitral regurgitation. The mean gradient across the mitral valve is 6 mmHg. The mitral valve area, by pressure half time, is calculated at 3.1 cm2. Tricuspid Valve: The tricuspid valve leaflets are normal. There is no evidence of tricuspid valve regurgitation. Unable to estimate the right ventricular systolic pressure. Pulmonic Valve: The pulmonic valve structure is not well visualized. There is no evidence of pulmonic valve thickening. There is no evidence of pulmonic regurgitation. Pericardium: There is no significant pericardial effusion. A pericardial fat pad is visualized. Aorta: The aortic root appears normal. The aortic arch is not well visualized. Pulmonary Artery: The main pulmonary artery is not well visualized. Venous: Unable to accurately comment on the size collapsibility of the IVC as the patient in known to be on mechanical ventilation. Summary: There are no significant changes when compared to the previous study done on 01/15/18 Conclusions Mild concentric left ventricular hypertrophy is observed. Global left ventricular wall motion and contractility are within normal limits. The estimated ejection fraction is 60-65%. The right ventricular global systolic function is hyperdynamic. There is no evidence of aortic stenosis. Mild mitral leaflet calcification is visualized. There is no evidence of mitral regurgitation. There is no evidence of tricuspid valve regurgitation. There is no significant pericardial effusion. Measurements Name Value Normal Range RVIDd (AP) 2D 2.7 cm (0.9 - 2.6) RVDdMajor (2D) 3.7 cm (2.2 - 4.4) RAd ISD 4CH 7.1 cm (3.4 - 4.9) RA (A4C)W 4.7 cm (2.9 - 4.6) IVSd (2D) 1.1 cm (0.6 - 1) LVPWd (2D) 1.2 cm (0.6 - 1) LVIDd (2D) 4.1 cm (3.6 - 5.4) LVIDs (2D) 2.7 cm - LV FS (2D) 33 % (25 - 45) Aortic Annulus 2.1 cm (1.4 - 2.6) Ao root diameter (2D) 3.1 cm (2.1 - 3.5) Ascending Ao 3.4 cm (2.1 - 3.4) LA dimension (AP) 2D 3.6 cm (2.3 - 3.8) LAd ISD 4CH 5.8 cm (2.9 - 5.3) LA ISD 4CH W 4.6 cm (2.5 - 4.5) Name Value Normal Range LA ESV BP (A/L) index 55 ml/m2 - Name Value Normal Range MV E-wave Vmax 1.2 m/sec - MV deceleration time 135 msec - MV A-wave Vmax 1.8 m/sec - MV E:A ratio 0.7 ratio - LV septal e' Vmax 0.05 m/sec - LV lateral e' Vmax 0.07 m/sec - LV E:e' septal ratio 24 ratio - LV E:e' lateral ratio 17 ratio - Name Value Normal Range AV Vmax 1.7 m/sec - AV VTI 26 cm - AV peak gradient 12 mmHg - AV mean gradient 6 mmHg - LVOT diameter 2 cm - LVOT Vmax 1.1 m/sec - LVOT VTI 17.5 cm - LVOT peak gradient 5 mmHg - LVOT mean gradient 2 mmHg - EMY (continuity Vmax) 2 cm2 - EMY (continuity VTI) 2.1 cm2 - CHRISTIANNE Vmax 0.7 m/sec - Name Value Normal Range MV Vmax 1.8 m/sec - MV VTI 37 cm - MV peak gradient 13 mmHg - MV mean gradient 6 mmHg - MV PHT 70 msec - MVA (PHT) 3.1 cm2 - MVA (continuity VTI) 1.5 cm2 - Name Value Normal Range RAP 8 mmHg - IVC diameter 2.2 cm - Name Value Normal Range PV Vmax 0.8 m/sec - PV peak gradient 2 mmHg -
[2018-06-10] MEDS: Vasopressin* 100 UNITS in D5W 250 ML BAG* 245 ML IVPB SCH (12:00)
--- NOTE | 2018-06-10 12:37 | PN ---
Progress Note - Progress Note Date of Service: 06/10/18 SOAP: Subjective: Sedated on ventilator Objective: Temp Pulse Resp BP Pulse Ox 96.1 F 98 24 135/44 95 06/10/18 04:00 06/10/18 08:01 06/10/18 11:46 06/10/18 08:00 06/10/18 08:01 Intake & Output 06/08/18 06/09/18 06/10/18 06/11/18 06:59 06:59 06:59 06:59 Intake Total 2186 4818 Output Total 68 1154 135 Balance 2118 3664 -135 Weight 234 lb 9.266 oz 244 lb 11.41 oz Intake: IV Fluids 1148 3132 LR 471 2200 NS (0.9%) 677 932 IVPB 211 205 ABX - FLAGYL 94 ABX - ZOSYN 211 111 Medicated IV 227 221 CC - Norepinephrine/ 227 163 Levophed CC - Propofol/Diprivan 58 Oral 0 Tube Feeding Flush Amount 600 60 Fresh Frozen Plasma 800 Albumin 250 NG Tube Irrigate Amount 150 Output: VIVIAN #1 215 20 Wound Vac 325 Mckeon 68 614 115 PEX: Abdominal dressing in place, VIVIAN with small amount of serosanguinous fluid in bulb Labs noted Assessment: S/P exlap for gallbladder perforation--drainage and open abdomen Plan: Ventilator and sedation IV abx Wound vac-open abdomen Plan return to OR 06/11 for wash out and closure of abominal wall Discussed care with Forming Process Worker Discussed procedure yesterday and her current condition and plans for OR tomorrow with today. I had long discussion with family yesterday after surgery.
[2018-06-10] MEDS: KCL 20 MEQ/100 ML IVPREMIX* 20 MEQ/100 ML BAG IV SCH ×3 (12:49→15:17)
[2018-06-10] MEDS: Albuterol/Ipratropium NEB.SOL* Albuterol 2.5 MG/Ipratropium 0.5 MG 3 ML INH SCH ×2 (13:06→19:19)
--- NOTE | 2018-06-10 14:15 | PN ---
Date of Service: 06/10/18 Critical Care Services: 72 yo F with a past medical history of morbid obesity, COPD, chronic hypoxemic respiratory failure on home O2, steroid dependance, МАРИНА on nightly CPAP, atrial fibrillation Xarelto , hypertension, small- cell lung cancer diagnosed in 2018 status post chemotherapy and radiation completed in March 2018, recent compression fracture, chronic pain on long-term opiates being managed in the ICU for septic shock in the setting of perforated gall bladder s/ p repair and requiring intubation and mechanical ventilation 06/09: Intubated in the ICU due to increased WOB of breathing in the setting of septic shock; s/p ex-lap with finding of gall bladder perforation, abd left open 06/10: patient remains intubated/mechanically ventilated on sedation with propofol, on norepinephrine Vital Signs: Temp Pulse Resp BP SpO2 FiO2 97.3 F 92 24 132/46 96 60 06/10/18 12:00 06/10/18 13:08 06/10/18 13:08 06/10/18 12:00 06/10/18 13:08 06/10 13:08 Physical Exam: Gen:NAD, sedated on propofol HEENT:NCAT, periorbital edema, neck supple, no thyromegaly Lungs:air entry bilaterally Cardiac: +S1 S2, tachycardia Abdomen:soft, hypoactive bowel sounds Extremities:1+ symmetric edema Neuro:on sedation, unable to access optimally Fluid Balance (Past 24 Hours): I= O= Net Intake & Output 06/08/18 06/09/18 06/10/18 06/11/18 06:59 06:59 06:59 06:59 Intake Total 2186 4818 1 Output Total 68 1154 195 Balance 2118 3664 -194 Weight 234 lb 9.266 oz 244 lb 11.41 oz Intake: IV Fluids 1148 3132 LR 471 2200 NS (0.9%) 677 932 IVPB 211 205 ABX - FLAGYL 94 ABX - ZOSYN 211 111 Medicated IV 227 221 CC - Norepinephrine/ 227 163 Levophed CC - Propofol/Diprivan 58 IV Narcotic Infusion 1 Fentanyl 1 Oral 0 Tube Feeding Flush Amount 600 60 Fresh Frozen Plasma 800 Albumin 250 NG Tube Irrigate Amount 150 Output: VIVIAN #1 215 20 Wound Vac 325 Mckeon 68 614 175 ADLs: Meal Record Start: 06/08/18 17: 17 Freq: Status: Complete Protocol: Created 06/08/18 17:17 System (Rec: 06/08/18 17:17 System [id number]) ADLs: Meal Record Start: 06/08/18 19: 14 Freq: 09,13,18 Status: Complete Protocol: Created 06/08/18 19:14 [id number] (Rec: 06/08/18 19:14 [id number] ICU-C06) ADLs: Meal Record Start: 06/09/18 00: 02 Freq: 09,13,18 Status: Active Protocol: Created 06/09/18 00:02 [id number] (Rec: 06/09/18 00:02 [id number] ICU-C06) Document 06/09/18 09:00 [id number] (Rec: 06/09/18 10:33 [id number] ICU-C06) Document 06/09/18 13:00 [id number] (Rec: 06/09/18 13:28 [id number] ICU-C06) Intake and Output Start: 06/08/18 17: 17 Freq: DAILY@0600,1400,2200 Status: Complete Protocol: Created 06/08/18 17:17 System (Rec: 06/08/18 17:17 System [id number]) Intake and Output Start: 06/08/18 19: 14 Freq: Q1HR Status: Complete Protocol: Created 06/08/18 19:14 [id number] (Rec: 06/08/18 19:14 [id number] ICU-C06) Document 06/08/18 22:28 [id number] (Rec: 06/08/18 22:28 [id number] ICU-M32) Document 06/08/18 22:46 [id number] (Rec: 06/08/18 22:46 [id number] ICU-M32) Intake and Output Start: 06/09/18 00: 02 Freq: Q1HR Status: Active Protocol: Created 06/09/18 00:02 [id number] (Rec: 06/09/18 00:02 [id number] ICU-C06) Document 06/09/18 01:56 [id number] (Rec: 06/09/18 01:56 [id number] ICU-M32) Document 06/09/18 04:00 [id number] (Rec: 06/09/18 05:09 [id number] ICU-M25) Document 06/09/18 08:00 [id number] (Rec: 06/09/18 11:30 [id number] ICU-C06) Document 06/09/18 12:00 [id number] (Rec: 06/09/18 13:30 [id number] ICU-C06) Document 06/09/18 15:44 [id number] (Rec: 06/09/18 15:44 [id number] ICU-C07) Document 06/09/18 18:00 [id number] (Rec: 06/10/18 01:20 [id number] ICU-C06) Document 06/09/18 20:00 [id number] (Rec: 06/09/18 21:48 [id number] ICU-C06) Document 06/09/18 22:00 [id number] (Rec: 06/09/18 22:08 [id number] ICU-C06) Document 06/09/18 23:50 [id number] (Rec: 06/09/18 23:50 [id number] ICU-C06) Document 06/10/18 01:00 [id number] (Rec: 06/10/18 01:14 [id number] ICU-C06) Document 06/10/18 02:00 [id number] (Rec: 06/10/18 02:11 [id number] ICU-C06) Document 06/10/18 03:00 [id number] (Rec: 06/10/18 03:22 [id number] ICU-C06) Document 06/10/18 04:00 [id number] (Rec: 06/10/18 04:30 [id number] ICU-C06) Document 06/10/18 05:54 [id number] (Rec: 06/10/18 05:56 [id number] ICU-M32) Document 06/10/18 07:00 [id number] (Rec: 06/10/18 09:20 [id number] ICU-C07) Document 06/10/18 08:00 [id number] (Rec: 06/10/18 09:20 [id number] ICU-C07) Document 06/10/18 09:00 [id number] (Rec: 06/10/18 10:48 [id number] ICU-C07) Document 06/10/18 10:00 [id number] (Rec: 06/10/18 10:49 [id number] ICU-C07) Document 06/10/18 10:49 [id number] (Rec: 06/10/18 10:49 [id number] ICU-C07) Document 06/10/18 12:00 [id number] (Rec: 06/10/18 12:42 [id number] ICU-C07) Labs: Laboratory Results - last 24 hr 06/09/18 06/09/18 06/09/18 15:27 15:36 15:36 WBC 21.6 H RBC 2.55 L Hgb 9.3 L Hct 29 L MCV 112 H MCH 37 H MCHC 33 RDW 20 H Plt Count 110 L MPV 9.7 Neut % (Auto) Not Reportable Lymph % (Auto) Not Reportable [place] % (Auto) Not Reportable Eos % (Auto) Not Reportable Baso % (Auto) Not Reportable Absolute Neuts (auto) Not Reportable Absolute Lymphs (auto) Not Reportable Absolute Monos (auto) Not Reportable Absolute Eos (auto) Not Reportable Absolute Basos (auto) Not Reportable Absolute Nucleated RBC Not Reportable Immature Gran % 24 H Neutrophils % 65 Band Neutrophils % 24 H Lymphocytes % 3 Monocytes % 8 Nucleated RBC % Not Reportable Abs Neuts (Manual) 19.2 H Abs Lymphs (Manual) 0.6 L Abs Monocytes (Manual) 1.8 H Normal RBC Morphology Normal INR (Anticoag Therapy) APTT Patient Temperature ABG pH ABG pH (Temp Correct) ABG pCO2 ABG pCO2 (Temp Corrct ABG pO2 ABG pO2 (Temp Correct ABG HCO3 ABG O2 Saturation ABG Base Excess Respiration Rate O2 Delivery Device Ventilator Type Vent Mode FiO2 Inspiratory Time PEEP Pressure Support Pressure Control EPAP IPAP BiPAP Sodium 136 Potassium 4.2 Chloride 110 Carbon Dioxide 21 L Anion Gap 5 BUN 20 Creatinine 1.04 H Est GFR ( Amer) 63.2 Est GFR (Non-Af Amer) 52.2 BUN/Creatinine Ratio 19.2 Glucose 94 Lactic Acid Calcium 8.6 Total Bilirubin AST ALT Alkaline Phosphatase Total Protein Albumin Globulin Albumin/Globulin Ratio Urine Color Vanessa Urine Appearance Cloudy Urine pH 5.0 Ur Specific [place] > 1.060 H Urine Protein 1+(30 mg/dl) A Urine Ketones Trace A Urine Blood Negative Urine Nitrate Negative Urine Bilirubin Negative Urine Urobilinogen Negative Ur Leukocyte Esterase 1+ A Urine WBC (Auto) 1+(6-10/hpf) A Urine RBC (Auto) Absent Ur Squamous Epith Cells Present A Urine Bacteria Absent Urine Yeast Present A Urine Glucose Negative Blood Type Antibody Screen Crossmatch 06/09/18 06/09/18 06/09/18 15:36 15:47 20:25 WBC RBC Hgb Hct MCV MCH MCHC RDW Plt Count MPV Neut % (Auto) Lymph % (Auto) [place] % (Auto) Eos % (Auto) Baso % (Auto) Absolute Neuts (auto) Absolute Lymphs (auto) Absolute Monos (auto) Absolute Eos (auto) Absolute Basos (auto) Absolute Nucleated RBC Immature Gran % Neutrophils % Band Neutrophils % Lymphocytes % Monocytes % Nucleated RBC % Abs Neuts (Manual) Abs Lymphs (Manual) Abs Monocytes (Manual) Normal RBC Morphology INR (Anticoag Therapy) APTT Patient Temperature ABG pH 7.29 L 7.23 L ABG pH (Temp Correct) ABG pCO2 39 48 H ABG pCO2 (Temp Corrct ABG pO2 258 H 114 H ABG pO2 (Temp Correct ABG HCO3 19.2 19.1 ABG O2 Saturation 100.0 H 99.7 H ABG Base Excess -7.3 L -7.5 L Respiration Rate O2 Delivery Device Ventilator Type Vent Mode FiO2 Inspiratory Time PEEP Pressure Support Pressure Control EPAP IPAP BiPAP Sodium Potassium Chloride Carbon Dioxide Anion Gap BUN Creatinine Est GFR ( Amer) Est GFR (Non-Af Amer) BUN/Creatinine Ratio Glucose Lactic Acid Calcium Total Bilirubin AST ALT Alkaline Phosphatase Total Protein Albumin Globulin Albumin/Globulin Ratio Urine Color Urine Appearance Urine pH Ur Specific [place] Urine Protein Urine Ketones Urine Blood Urine Nitrate Urine Bilirubin Urine Urobilinogen Ur Leukocyte Esterase Urine WBC (Auto) Urine RBC (Auto) Ur Squamous Epith Cells Urine Bacteria Urine Yeast Urine Glucose Blood Type O Negative Antibody Screen Negative Crossmatch See Detail 06/09/18 06/09/18 06/10/18 20:25 21:15 05:45 WBC 22.0 H RBC 2.18 L Hgb 7.8 L Hct 25 L MCV 113 H MCH 36 H MCHC 32 RDW 20 H Plt Count 107 L MPV 9.6 Neut % (Auto) 93.2 Lymph % (Auto) 2.5 [place] % (Auto) 1.7 Eos % (Auto) 1.8 Baso % (Auto) 0.8 Absolute Neuts (auto) 20.5 H Absolute Lymphs (auto) 0.5 L Absolute Monos (auto) 0.4 Absolute Eos (auto) 0.4 Absolute Basos (auto) 0.2 Absolute Nucleated RBC 0.1 Immature Gran % Neutrophils % Band Neutrophils % Lymphocytes % Monocytes % Nucleated RBC % 0.4 Abs Neuts (Manual) Abs Lymphs (Manual) Abs Monocytes (Manual) Normal RBC Morphology INR (Anticoag Therapy) 1.88 H APTT 47.4 H Patient Temperature Cancelled ABG pH Cancelled ABG pH (Temp Correct) Cancelled ABG pCO2 Cancelled ABG pCO2 (Temp Corrct Cancelled ABG pO2 Cancelled ABG pO2 (Temp Correct Cancelled ABG HCO3 Cancelled ABG O2 Saturation Cancelled ABG Base Excess Cancelled Respiration Rate Cancelled O2 Delivery Device Cancelled Ventilator Type Cancelled Vent Mode Cancelled FiO2 Cancelled Inspiratory Time Cancelled PEEP Cancelled Pressure Support Cancelled Pressure Control Cancelled EPAP Cancelled IPAP Cancelled BiPAP Cancelled Sodium Potassium Chloride Carbon Dioxide Anion Gap BUN Creatinine Est GFR ( Amer) Est GFR (Non-Af Amer) BUN/Creatinine Ratio Glucose Lactic Acid Calcium Total Bilirubin AST ALT Alkaline Phosphatase Total Protein Albumin Globulin Albumin/Globulin Ratio Urine Color Urine Appearance Urine pH Ur Specific [place] Urine Protein Urine Ketones Urine Blood Urine Nitrate Urine Bilirubin Urine Urobilinogen Ur Leukocyte Esterase Urine WBC (Auto) Urine RBC (Auto) Ur Squamous Epith Cells Urine Bacteria Urine Yeast Urine Glucose Blood Type Antibody Screen Crossmatch 06/10/18 06/10/18 06/10/18 05:45 05:45 11:30 WBC RBC Hgb Hct MCV MCH MCHC RDW Plt Count MPV Neut % (Auto) Lymph % (Auto) [place] % (Auto) Eos % (Auto) Baso % (Auto) Absolute Neuts (auto) Absolute Lymphs (auto) Absolute Monos (auto) Absolute Eos (auto) Absolute Basos (auto) Absolute Nucleated RBC Immature Gran % Neutrophils % Band Neutrophils % Lymphocytes % Monocytes % Nucleated RBC % Abs Neuts (Manual) Abs Lymphs (Manual) Abs Monocytes (Manual) Normal RBC Morphology INR (Anticoag Therapy) 1.66 H APTT Patient Temperature Not Reportable ABG pH 7.19 L* ABG pH (Temp Correct) Not Reportable ABG pCO2 53 H ABG pCO2 (Temp Corrct Not Reportable ABG pO2 164 H ABG pO2 (Temp Correct Not Reportable ABG HCO3 18.5 L ABG O2 Saturation 99.9 H ABG Base Excess -8.3 L Respiration Rate 16 O2 Delivery Device vent Ventilator Type Not Reportable Vent Mode cmv FiO2 80 Inspiratory Time Not Reportable PEEP 10 Pressure Support Not Reportable Pressure Control Not Reportable EPAP Not Reportable IPAP Not Reportable BiPAP Not Reportable Sodium 136 Potassium 3.7 Chloride 109 Carbon Dioxide 22 Anion Gap 5 BUN 19 Creatinine 0.82 Est GFR ( Amer) 83.2 Est GFR (Non-Af Amer) 68.7 BUN/Creatinine Ratio 23.2 H Glucose 101 H Lactic Acid Calcium 8.7 Total Bilirubin 1.00 AST 30 ALT 16 Alkaline Phosphatase 247 H Total Protein 4.0 L Albumin 2.1 L Globulin 1.9 L Albumin/Globulin Ratio 1.1 Urine Color Urine Appearance Urine pH Ur Specific [place] Urine Protein Urine Ketones Urine Blood Urine Nitrate Urine Bilirubin Urine Urobilinogen Ur Leukocyte Esterase Urine WBC (Auto) Urine RBC (Auto) Ur Squamous Epith Cells Urine Bacteria Urine Yeast Urine Glucose Blood Type Antibody Screen Crossmatch 06/10/18 11:57 WBC RBC Hgb Hct MCV MCH MCHC RDW Plt Count MPV Neut % (Auto) Lymph % (Auto) [place] % (Auto) Eos % (Auto) Baso % (Auto) Absolute Neuts (auto) Absolute Lymphs (auto) Absolute Monos (auto) Absolute Eos (auto) Absolute Basos (auto) Absolute Nucleated RBC Immature Gran % Neutrophils % Band Neutrophils % Lymphocytes % Monocytes % Nucleated RBC % Abs Neuts (Manual) Abs Lymphs (Manual) Abs Monocytes (Manual) Normal RBC Morphology INR (Anticoag Therapy) APTT Patient Temperature ABG pH ABG pH (Temp Correct) ABG pCO2 ABG pCO2 (Temp Corrct ABG pO2 ABG pO2 (Temp Correct ABG HCO3 ABG O2 Saturation ABG Base Excess Respiration Rate O2 Delivery Device Ventilator Type Vent Mode FiO2 Inspiratory Time PEEP Pressure Support Pressure Control EPAP IPAP BiPAP Sodium Potassium Chloride Carbon Dioxide Anion Gap BUN Creatinine Est GFR ( Amer) Est GFR (Non-Af Amer) BUN/Creatinine Ratio Glucose Lactic Acid 0.5 Calcium Total Bilirubin AST ALT Alkaline Phosphatase Total Protein Albumin Globulin Albumin/Globulin Ratio Urine Color Urine Appearance Urine pH Ur Specific [place] Urine Protein Urine Ketones Urine Blood Urine Nitrate Urine Bilirubin Urine Urobilinogen Ur Leukocyte Esterase Urine WBC (Auto) Urine RBC (Auto) Ur Squamous Epith Cells Urine Bacteria Urine Yeast Urine Glucose Blood Type Antibody Screen Crossmatch Studies: TTE 06/10/18: Conclusions Mild concentric left ventricular hypertrophy is observed. Global left ventricular wall motion and contractility are within normal limits. The estimated ejection fraction is 60-65%. The right ventricular global systolic function is hyperdynamic. There is no evidence of aortic stenosis. Mild mitral leaflet calcification is visualized. There is no evidence of mitral regurgitation. There is no evidence of tricuspid valve regurgitation. There is no significant pericardial effusion. Nutrition: TF: promote goal 60cc/h Impression: 72 yo F with hx/o chroinic hypoxemic respiratory failure, COPD, morbid obesity, SCC s/p XRT/CHT, AF on xarelto being managed in the ICU for septic shock from perforated gall bladder with bile peritonitis and intubation/mechanical ventilation for increased WOB Septic shock Lactemia - resolved Urine [place] + brianna tropicalis Perforated gallbladder with bile peritonitis s/p exploratory laparotomy with drainage of RUQ and wound VAC on open abdomen 06/10 Acute respiratory failure with hypoxemia and hypercapnea Acute ventilator dependance Mixed acute respiratory and metabolic acidosis Leukocytosis Anemia Coagulopathy 2.93 likely due to sepsis resolved HAZEL -resolved Diastolic dysfunction hx/o AF on xarelto Hypokalemia Plan: Septic shock Lactemia - resolved Urine [place] + brianna tropicalis - MAP >65 - s/p 1L NS - UOP 30-60mL/h which is near optimal - on NE and vasopressin - Improved lactic acidosis from 3.4-->2.6-->0.5 - will consider brianna in urine as colonizer and not treat at this time - continue with zosyn Perforated gallbladder with bile peritonitis -s/p ex lap with Diagnostic laparoscopy, exploratory laparotomy with drainage of right upper quadrant, and placement of wound VAC on open abdomen 06/10 -by Dr. Yosi Ballesteros - intraoperatively 3100 cc of crystalloid, 4 units of fresh frozen plasma, and 250 cc of albumin -plan for wash out and abdominal closure on 06/11. Acute respiratory failure with hypoxemia and hypercapnea Acute ventilator dependance Mixed acute respiratory and metabolic acidosis - mechanical vent - CMV, VT 400, PEEP 8, RR 16-->24, FIO2 0.6 - awaiting post vent changes ABG - sedation and analgesia with propofol and fentanyl to maintain RASS 0--1 and CPOT <2 while intubated and abd open Leukocytosis due to sepsis improving from 21-->22 on zosyn anemia with acute intraop blood loss - intraoperatively received 1unit PRBC, 4 units FFP - s/p 1 unit PRBC 06/10 for high pressor needs and anemia Coagulopathy 2.93 likely due to sepsis resolved, 1.66 HAZEL resolved Cr improved from 1.04-->0.82 good UOP Diastolic dysfunction hx/o AF on xarelto - holding xarelto till after abd closure Hypokalemia due to poor intake replaced with IV KCL DVT ppx: SCD. Holding xarelto till after abd closure. Will start SQH GI ppx: H2B, on bowel regimen oral care with chlorhexidine Code status: full code prognosis: grave Critical care issues: septic shock, acute vent dependance/acute respiratory failure Critical care time: 65 minutes
[2018-06-10] MEDS ORDERED: Sodium Bicarbonate 8.4% IV* 150 MEQ in D5W 1000 ML BAG* 1,000 ML IVPB ONE (16:30)
[2018-06-10] MEDS ORDERED: NS 0.9% 500 ML* @ Wide Open(Bolus) 500ml IV ONE (19:00)
[2018-06-10] MEDS: Heparin VIAL(*) 5000 UNITS/ML VIAL (FIVE THOUSAND) SUBCUT SCH (22:12)
[2018-06-11] MEDS: ZOSYN 3.375 GM Q8H per EXTENDED INFUSION IVPB SCH ×6 (00:36→17:15)
[2018-06-11] MEDS: Albuterol/Ipratropium NEB.SOL* Albuterol 2.5 MG/Ipratropium 0.5 MG 3 ML INH SCH ×4 (01:53→20:19)
[2018-06-11] MEDS: Chlorhexidine MOUTHWASH 0.12%* 15 ML UDC TOPICAL SCH ×5 (03:00→17:54)
[2018-06-11 06:23] LABS: Hematocrit 25 % (33-41); Mean Corpuscular HGB Conc 33 g/dL (31-36); Mean Corpuscular Hemoglobin 35 pg (27-31); Mean Corpuscular Volume 108 fL (80-97); Mean Platelet Volume 9.6 fL (7.4-10.4); Platelet Count 74 10^3/uL (150-450); Red Blood Count 2.27 10^6 /uL (3.70-4.87); Red Cell Distribution Width 23 % (10.5-15); White Blood Count 13.3 10^3/uL (3.5-10.8)
[2018-06-11 06:45] LABS: BUN/Creatinine Ratio 34.5 (8-20); Calcium 8.3 mg/dL (8.6-10.3); EGFR Non-African American 102.5 (>60); Magnesium 1.9 mg/dL (1.9-2.7); Phosphorus 1.9 mg/dL (2.5-5.0); Potassium 3.3 mmol/L (3.5-5.0)
[2018-06-11 06:46] LABS: ABS Basophils 0 10^3/ul (0-0.2); ABS Eosinophils 0 10^3/ul (0-0.6); ABS Lymphocytes 0.4 10^3/ul (1.0-4.8); ABS Monocytes 0.3 10^3/ul (0-0.8); ABS Neutrophils 12.5 10^3/ul (1.5-7.7); ABS Nucleated RBC 0.1 10^3/ul; Eosinophil % 0.1 %; Lymphocyte % 3.3 %; Nucleated Red Blood Cells % 0.4
[2018-06-11] MEDS ORDERED: Polyethylene Glycol 3350* 17 GM PACKET PO SCH (09:00)
--- NOTE | 2018-06-11 09:05 | PN ---
Progress Note - Progress Note Date of Service: 06/11/18 SOAP: Subjective: Sedated on ventilator Care discussed with nurse Objective: Temp Pulse Resp BP Pulse Ox 97.6 F 92 24 97/34 96 06/10/18 19:17 06/11/18 08:03 06/11/18 08:00 06/11/18 08:03 06/11/18 08:03 Intake & Output 06/09/18 06/10/18 06/11/18 06/12/18 06:59 06:59 06:59 06:59 Intake Total 2186 4818 3967 Output Total 68 1154 896 50 Balance 2118 3664 3071 -50 Weight 234 lb 9.266 oz 244 lb 11.41 oz 260 lb 2.327 oz Intake: IV Fluids 1148 3132 2671 LR 471 2200 NS (0.9%) 660 757 7126 Sodium Bicarb 1106 IVPB 211 205 447 ABX - FLAGYL 94 ABX - ZOSYN 211 111 322 Potassium 125 Medicated IV 227 221 389 CC - Norepinephrine/ 227 163 226 Levophed CC - Propofol/Diprivan 58 55 Vasopressin 108 IV Narcotic Infusion 1 Fentanyl 1 Oral 0 Tube Feeding 139 Tube Feeding Flush Amount 600 60 Packed Cells 320 Fresh Frozen Plasma 800 Albumin 250 NG Tube Irrigate Amount 150 Output: VIVIAN #1 215 40 Wound Vac 325 Mckeon 68 614 856 50 PEX: Abd: Dressing is intact, minimal drainage. VIVIAN serosanguinous, non-bilious. Mildly distended. Labs noted Assessment: POD#2 s/p exlap for perforated gallbladder, peritonitis with sepsis Severe COPD Open abdomen Plan: Exploratory laparotomy with abdominal wall closure today. Procedure discussed with last night and he will give consent. Risks and benefits explained. Continue IV abx Ventilator.
[2018-06-11] MEDS ORDERED: Potassium Phosphate IV* 30 MMOLE in NS 0.9% 250 ML* 250 ML IVPB ONE (09:29)
[2018-06-11] MEDS: KCL 20 MEQ/100 ML IVPREMIX* 20 MEQ/100 ML BAG IV SCH ×2 (09:47→16:45)
[2018-06-11] MEDS: Heparin VIAL(*) 5000 UNITS/ML VIAL (FIVE THOUSAND) SUBCUT SCH ×3 (09:48→22:20)
[2018-06-11] MEDS ORDERED: fentaNYL* 50 MCG/ML 5 ML VIAL (250 MCG VIAL) ONE (11:58)
[2018-06-11] MEDS ORDERED: Rocuronium* 10 MG/ML VIAL ONE (11:59)
[2018-06-11] MEDS ORDERED: Midazolam* 1 MG/ML 5 ML VIAL (5 MG) ONE (11:59)
[2018-06-11] MEDS ORDERED: Bupivacaine 0.25% W/EPI* 10 ML SDV ONE (12:00)
[2018-06-11] MEDS ORDERED: fentaNYL* 50 MCG/ML 2 ML VIAL (100 MCG VIAL) ONE (13:19)
[2018-06-11] MEDS ORDERED: Morphine 10 MG/ML VIAL (1 ml) ONE (13:36)
[2018-06-11] MEDS ORDERED: Glycopyrrolate IV* 0.2 MG/ML 1 ML VIAL ONE (13:50)
[2018-06-11] MEDS ORDERED: Neostigmine Methylsulfate* 3 MG/3 ML SYRINGE ONE (13:50)
--- NOTE | 2018-06-11 14:51 | BRIEFOPN ---
Brief Operative Note - Surgery Procedures: Procedures OPERATIVE REPORT Pre-op: Open abdomen S/P exploratory laparotomy 06/09 for repair of perforated gallbladder Peritonitis Post-Op: Same Procedure:Exploratory laparotomy, closure of abdominal wall Surgeon: MD Lesli Asst: Tez Tellez MD Anes: general with Dr. Farfan IVF:800 cc's of crystalloid EBL:min Specimen: none Drain: Existing #10 VIVIAN drain left in RUQ Wound: 3 To ICU
[2018-06-11] MEDS: Vasopressin* 100 UNITS in D5W 250 ML BAG* 245 ML IVPB SCH (15:38)
[2018-06-11] MEDS ORDERED: KCL 20 MEQ/100 ML IVPREMIX* 20 MEQ/100 ML BAG ONE (16:41)
[2018-06-11] MEDS ORDERED: Furosemide IV* 10 MG/ML 2 ML VIAL (20 MG) IV ONE (16:42)
--- NOTE | 2018-06-11 16:49 | PN ---
Date of Service: 06/11/18 Critical Care Services: 72 yo F with a past medical history of morbid obesity, COPD, chronic hypoxemic respiratory failure on home O2, steroid dependance, МАРИНА on nightly CPAP, atrial fibrillation Xarelto , hypertension, small- cell lung cancer diagnosed in 2017 status post chemotherapy and radiation completed in March 2018, recent compression fracture, chronic pain on long-term opiates being managed in the ICU for septic shock in the setting of perforated gall bladder s/ p repair and requiring intubation and mechanical ventilation 06/09: Intubated in the ICU due to increased WOB of breathing in the setting of septic shock; s/p ex-lap with finding of gall bladder perforation, abd left open 06/10: patient remains intubated/mechanically ventilated on sedation with propofol, on norepinephrine 06/11: Patient remains intubated/mechanically ventilated on fentanyl and vasopressin. She was taken to the OR for abd wound closure. Procedure was grossly uneventful Vital Signs: Temp Pulse Resp BP SpO2 FiO2 96.0 F 86 24 136/59 98 60 06/11/18 15:00 06/11/18 15:01 06/11/18 15:56 06/11/18 15:00 06/11/18 15:56 06/11 15:56 Physical Exam: Gen: Gross anasarca, NAD, sedated on fentanyl HEENT:NCAT, periorbital edema, neck supple, no thyromegaly Lungs:air entry bilaterally Cardiac: +S1 S2, tachycardia Abdomen:soft, hypoactive bowel sounds Extremities:2+ symmetric edema Neuro:on sedation, unable to access optimally Fluid Balance (Past 24 Hours): I= O= Net Intake & Output 06/09/18 06/10/18 06/11/18 06/12/18 06:59 06:59 06:59 06:59 Intake Total 2186 4818 3967 449.2 Output Total 68 1154 896 500 Balance 2118 3664 3071 -50.8 Weight 234 lb 9.266 oz 244 lb 11.41 oz 260 lb 2.327 oz Intake: IV Fluids 1148 3132 2671 LR 471 2200 NS (0.9%) 131 940 4260 Sodium Bicarb 1106 IVPB 211 205 447 380 ABX - FLAGYL 94 ABX - ZOSYN 211 111 322 100 KPhos 180 Potassium 125 100 Medicated IV 227 221 389 69.2 CC - Norepinephrine/ 227 163 226 13.2 Levophed CC - Propofol/Diprivan 58 55 Vasopressin 108 56 IV Narcotic Infusion 1 Fentanyl 1 Oral 0 Tube Feeding 139 Tube Feeding Flush Amount 600 60 Packed Cells 320 Fresh Frozen Plasma 800 Albumin 250 NG Tube Irrigate Amount 150 Output: VIVIAN #1 215 40 115 Wound Vac 325 Urine 205 Mckeon 68 614 856 130 Estimated Blood Loss 50 ADLs: Meal Record Start: 06/08/18 17: 17 Freq: Status: Complete Protocol: Created 06/08/18 17:17 System (Rec: 06/08/18 17:17 System [id number]-C05) ADLs: Meal Record Start: 06/08/18 19: 14 Freq: 09,13,18 Status: Complete Protocol: Created 06/08/18 19:14 [id number] (Rec: 06/08/18 19:14 [id number] ICU-C06) ADLs: Meal Record Start: 06/09/18 00: 02 Freq: 09,13,18 Status: Active Protocol: Created 06/09/18 00:02 [id number] (Rec: 06/09/18 00:02 [id number] ICU-C06) Document 06/09/18 09:00 [id number] (Rec: 06/09/18 10:33 [id number] ICU-C06) Document 06/09/18 13:00 [id number] (Rec: 06/09/18 13:28 [id number] ICU-C06) Document 06/10/18 13:00 [id number] (Rec: 06/10/18 17:45 [id number] ICU-C07) Document 06/10/18 18:00 HRQ3721 (Rec: 06/10/18 18:02 [id number] ICU-C07) Document 06/11/18 09:00 [id number] (Rec: 06/11/18 12:11 [id number] ICU-M32) Intake and Output Start: 06/08/18 17: 17 Freq: DAILY@0600,1400,2200 Status: Complete Protocol: Created 06/08/18 17:17 System (Rec: 06/08/18 17:17 System SSU-C05) Intake and Output Start: 06/08/18 19: 14 Freq: Q1HR Status: Complete Protocol: Created 06/08/18 19:14 [id number] (Rec: 06/08/18 19:14 [id number] ICU-C06) Document 06/08/18 22:28 MPW1884 (Rec: 06/08/18 22:28 [id number] ICU-M32) Document 06/08/18 22:46 PSX2160 (Rec: 06/08/18 22:46 [id number] ICU-M32) Intake and Output Start: 06/09/18 00: 02 Freq: Q1HR Status: Active Protocol: Created 06/09/18 00:02 [id number] (Rec: 06/09/18 00:02 [id number] ICU-C06) Document 06/09/18 01:56 COQ8942 (Rec: 06/09/18 01:56 [id number] ICU-M32) Document 06/09/18 04:00 PBT9103 (Rec: 06/09/18 05:09 FDF2062 ICU-M25) Document 06/09/18 08:00 PSW9690 (Rec: 06/09/18 11:30 [id number] ICU-C06) Document 06/09/18 12:00 HMY5861 (Rec: 06/09/18 13:30 [id number] ICU-C06) Document 06/09/18 15:44 [id number] (Rec: 06/09/18 15:44 [id number] ICU-C07) Document 06/09/18 18:00 GRP9110 (Rec: 06/10/18 01:20 ROS1070 ICU-C06) Document 06/09/18 20:00 DGT0515 (Rec: 06/09/18 21:48 [id number] ICU-C06) Document 06/09/18 22:00 DVG0981 (Rec: 06/09/18 22:08 [id number] ICU-C06) Document 06/09/18 23:50 PQD8588 (Rec: 06/09/18 23:50 DUV5802 ICU-C06) Document 06/10/18 01:00 SDZ2190 (Rec: 06/10/18 01:14 [id number] ICU-C06) Document 06/10/18 02:00 PHR8701 (Rec: 06/10/18 02:11 [id number] ICU-C06) Document 06/10/18 03:00 RMH5695 (Rec: 06/10/18 03:22 IQY6678 ICU-C06) Document 06/10/18 04:00 PBL0339 (Rec: 06/10/18 04:30 [id number] ICU-C06) Document 06/10/18 05:54 UGR3754 (Rec: 06/10/18 05:56 [id number] ICU-M32) Document 06/10/18 07:00 HDU1590 (Rec: 06/10/18 09:20 VGD4554 ICU-C07) Document 06/10/18 08:00 IJY9668 (Rec: 06/10/18 09:20 MFC2183 ICU-C07) Document 06/10/18 09:00 DJV7108 (Rec: 06/10/18 10:48 [id number] ICU-C07) Document 06/10/18 10:00 CKI9039 (Rec: 06/10/18 10:49 [id number] ICU-C07) Document 06/10/18 10:49 OVB0856 (Rec: 06/10/18 10:49 WBM1315 ICU-C07) Document 06/10/18 12:00 FTI0476 (Rec: 06/10/18 12:42 FGZ9789 ICU-C07) Document 06/10/18 13:00 OKL4632 (Rec: 06/10/18 17:09 HHI8838 ICU-M32) Document 06/10/18 14:00 UQL7050 (Rec: 06/10/18 17:09 YRH5760 ICU-M32) Document 06/10/18 15:00 BIC1611 (Rec: 06/10/18 17:10 [id number] ICU-M32) Document 06/10/18 16:00 PAK0603 (Rec: 06/10/18 18:35 HNP1738 ICU-C07) Document 06/10/18 17:00 PLA3781 (Rec: 06/10/18 18:35 JKE5027 ICU-C07) Document 06/10/18 18:00 JBY3315 (Rec: 06/10/18 18:35 PJA6662 ICU-C07) Document 06/10/18 19:00 HYP8736 (Rec: 06/10/18 19:44 RYW3869 ICU-M32) Document 06/10/18 20:00 QSD0462 (Rec: 06/10/18 20:24 TQV8634 ICU-C07) Document 06/10/18 21:00 AXY1000 (Rec: 06/10/18 21:32 LEX0829 ICU-C07) Document 06/10/18 22:07 FUY3982 (Rec: 06/10/18 22:07 [id number] ICU-M32) Document 06/10/18 23:00 VYN0797 (Rec: 06/11/18 00:11 OII4901 ICU-C07) Document 06/11/18 00:00 HCI2489 (Rec: 06/11/18 00:11 [id number] ICU-C07) Document 06/11/18 01:00 IDR0240 (Rec: 06/11/18 02:38 RUF4868 ICU-C07) Document 06/11/18 02:00 AAU4941 (Rec: 06/11/18 02:43 PJL1725 ICU-C07) Document 06/11/18 03:00 XVX1027 (Rec: 06/11/18 03:47 BSK1156 ICU-M32) Document 06/11/18 04:00 XWF3778 (Rec: 06/11/18 04:31 TLV0044 ICU-C07) Document 06/11/18 05:00 TSI3990 (Rec: 06/11/18 05:59 FVU2630 ICU-M32) Document 06/11/18 06:00 JZJ1952 (Rec: 06/11/18 06:11 [id number] ICU-M32) Document 06/11/18 07:00 UHA7027 (Rec: 06/11/18 08:23 LGP5764 ICU-M23) Document 06/11/18 08:00 YXM9226 (Rec: 06/11/18 08:24 [id number] ICU-M23) Document 06/11/18 09:00 GHL3679 (Rec: 06/11/18 10:01 ONS2745 ICU-M32) Document 06/11/18 10:00 ZQQ8552 (Rec: 06/11/18 10:01 [id number] ICU-M32) Document 06/11/18 11:00 VUL4666 (Rec: 06/11/18 11:02 [id number] ICU-M32) Document 06/11/18 12:00 FYQ0408 (Rec: 06/11/18 13:47 LHV6696 ICU-M24) Document 06/11/18 15:00 RPH7498 (Rec: 06/11/18 15:49 [id number] ICU-C07) Document 06/11/18 15:56 HUS1976 (Rec: 06/11/18 16:22 [id number] ICU-C07) Labs: Laboratory Results - last 24 hr 06/10/18 06/11/18 06/11/18 16:45 06:04 06:04 WBC 13.3 H RBC 2.27 L Hgb 8.0 L Hct 25 L MCV 108 H MCH 35 H MCHC 33 RDW 23 H Plt Count 74 L MPV 9.6 Neut % (Auto) 94.2 Lymph % (Auto) 3.3 [place] % (Auto) 2.3 Eos % (Auto) 0.1 Baso % (Auto) 0.1 Absolute Neuts (auto) 12.5 H Absolute Lymphs (auto) 0.4 L Absolute Monos (auto) 0.3 Absolute Eos (auto) 0 Absolute Basos (auto) 0 Absolute Nucleated RBC 0.1 Nucleated RBC % 0.4 Hypochromasia 1+ Anisocytosis 2+ Patient Temperature Not Reportable ABG pH 7.21 L ABG pH (Temp Correct) Not Reportable ABG pCO2 50 H ABG pCO2 (Temp Corrct Not Reportable ABG pO2 119 H ABG pO2 (Temp Correct Not Reportable ABG HCO3 18.6 L ABG O2 Saturation 99.7 H ABG Base Excess -8.1 L Respiration Rate 24 O2 Delivery Device vent Ventilator Type Not Reportable Vent Mode cmv FiO2 60 Inspiratory Time Not Reportable PEEP 10 Pressure Support Not Reportable Pressure Control Not Reportable EPAP Not Reportable IPAP Not Reportable BiPAP Not Reportable Sodium 139 Potassium 3.3 L Chloride 110 Carbon Dioxide 24 Anion Gap 5 BUN 20 Creatinine 0.58 Est GFR ( Amer) 124.0 Est GFR (Non-Af Amer) 102.5 BUN/Creatinine Ratio 34.5 H Glucose 132 H Calcium 8.3 L Phosphorus 1.9 L Magnesium 1.9 Studies: TTE 06/10/18: Conclusions Mild concentric left ventricular hypertrophy is observed. Global left ventricular wall motion and contractility are within normal limits. The estimated ejection fraction is 60-65%. The right ventricular global systolic function is hyperdynamic. There is no evidence of aortic stenosis. Mild mitral leaflet calcification is visualized. There is no evidence of mitral regurgitation. There is no evidence of tricuspid valve regurgitation. There is no significant pericardial effusion. Nutrition: TF promote at goal of 10cc/h x 24 hours till +BM Impression: 72 yo F with hx/o chroinic hypoxemic respiratory failure, COPD, morbid obesity, SCC s/p XRT/CHT, AF on xarelto being managed in the ICU for septic shock from perforated gall bladder with bile peritonitis and intubation/mechanical ventilation for increased WOB Septic shock Lactemia - resolved Urine [place] + brianna tropicalis Perforated gallbladder with bile peritonitis s/p exploratory laparotomy with drainage of RUQ and wound VAC on open abdomen 06/10- abd closure 06/11 Acute respiratory failure with hypoxemia and hypercapnea Acute ventilator dependance Mixed acute respiratory and metabolic acidosis Leukocytosis Anemia Coagulopathy 2.93 likely due to sepsis resolved HAZEL -resolved Diastolic dysfunction hx/o AF on xarelto Hypokalemia Hypophosphatemia Gross anasarca/volume overload Plan: Septic shock Lactemia - resolved Urine [place] + brianna tropicalis Gross anasarca/volume overload - third spacing - MAP >65 - UOP low between 20-50mL - on vasopressin only - Improved lactic acidosis from 3.4-->2.6-->0.5 - will consider brianna in urine as colonizer and not treat at this time - continue with zosyn - trial of lasix 20 mg x 1 and daily Perforated gallbladder with bile peritonitis s/p exploratory laparotomy with drainage of RUQ and wound VAC on open abdomen -by Dr. Yosi Ballesteros - intraoperatively 3100 cc of crystalloid, 4 units of fresh frozen plasma, and 250 cc of albumin -plan for wash out and abdominal closure on 06/11. abd closure 06/11 - intraop 800cc crystalloids Acute respiratory failure with hypoxemia and hypercapnea Acute ventilator dependance - mechanical vent - CMV, VT 400, PEEP 8, RR 16-->24, FIO2 0.6 - start to minimize sedation and analgesia with propofol and fentanyl to maintain RASS 0--1 and CPOT <2 while intubated Leukocytosis due to sepsis improving from 21-->22-->13 on zosyn Anemia Coagulopathy 2.93 likely due to sepsis resolved with acute intraop blood loss - intraoperatively received 1unit PRBC, 4 units FFP - s/p 1 unit PRBC 06/10 for high pressor needs and anemia - stable H/H thrombocytopenia likely due to acute illness vs erroneous re-check with am labs HAZEL -resolved Cr improved from 1.04-->0.82-->0.5 + UOP Lasix challenge Diastolic dysfunction hx/o AF on xarelto - holding xarelto till after abd closure x 48 hours Hypokalemia Hypophosphatemia due to poor intake replaced with IV KCL and KPhos DVT ppx: SCD. VENRON starting tomorrow. Holding xarelto till after abd closure x 48 hours GI ppx: H2B oral care with chlorhexidine Code status: full code prognosis: grave Critical care issues: septic shock, acute vent dependance/acute respiratory failure Critical care time: 45 minutes
[2018-06-11] MEDS ORDERED: Propofol* 100 ML IV SCH (17:00)
[2018-06-11] MEDS: Propofol* 100 ML IV SCH (20:25)
--- NOTE | 2018-06-11 20:31 | OP ---
DATE OF OPERATION: 06/11/18 - ROOM#ICU-09 DATE OF : 47 SURGEON: Vitaly Ballesteros MD. HARDSCAPE FOREMAN: Kirk Tellez MD. ANESTHESIOLOGIST: Dr. Farfan. ANESTHESIA: General. PRE-OP DIAGNOSES: 1. Open abdomen, status post exploratory laparotomy on 06/09/18. 2. Perforated gallbladder with peritonitis. POST-OP DIAGNOSIS: OPERATIVE PROCEDURE: Exploratory laparotomy and abdominal wall closure. ESTIMATED BLOOD LOSS: Minimal. IV FLUIDS: 800 cc of crystalloid. SPECIMENS: None. WOUND CLASSIFICATION: IV. COMPLICATIONS: None. DRAINS: The existing #10 VIVIAN drain in the right upper quadrant was left in place. DISPOSITION: To ICU, intubated. BRIEF HISTORY: Ms. Kassandra Giraldo is a 72-year-old woman who underwent exploratory laparotomy 48 hours ago for peritonitis after she presented with sepsis. She was found to have a perforated gallbladder requiring drainage of the gallbladder and her abdomen was left open due to extensive amount of contamination with plans to return to the operating room today for abdominal washout and closure of the abdominal fascia. The procedure was discussed with the patient's , who gave consent. The risks of, but not limited to, bleeding, infection, intraabdominal abscess formation, injury to peritoneal and retroperitoneal structures, possibly further surgical intervention depending on findings at this laparotomy were discussed. We discussed possibility of bowel resection, ostomy, as well as the risks of overall morbidity and mortality due to her significant associated medical conditions. DESCRIPTION OF PROCEDURE: Written informed consent was obtained, the abdomen was marked with indelible ink. The patient had been receiving intravenous antibiotics. She was taken to the operating room from the intensive care unit, intubated, and placed in the supine position. Mckeon catheter and nasogastric tube had been inserted. Anesthesia was administered. The existing wound VAC device was removed, and the abdomen was prepped and draped with Betadine in the usual sterile fashion. The existing [place] visceral protector was removed from the abdominal cavity. Upon entering the abdomen, there was a moderate amount of turbid fluid, but this was not bilious or fibrinous like had been noted on the initial exploration. Thorough irrigation with saline of all 4 quadrants was completed. Once again, I evaluated the entire small bowel and it was unremarkable without evidence of perforation or other abnormality. It was completely viable. The right colon, transverse colon, descending colon, as well as the rectum were also viable. They were not dilated. The stomach was normal and the nasogastric tube was in good position. Attention was then turned to the right upper quadrant. There was some fibrinous exudative fluid above the liver and this was irrigated thoroughly. The drain was in good position in the gallbladder fossa and I appreciated no evidence of bile leak from the cystic duct stump at the base in the infundibulum of the gallbladder that was placed before. The drain was left in position. A complete sponge, needle, and laparotomy pad count was completed. The midline fascial incision was then closed with interrupted #1 Vicryl suture. I used four separate #5 Ethibond full-thickness retention sutures with 16- [place] red rubber catheter bumpers. The skin was stapled. A Prevena closed wound VAC was placed over the incision and placed to 125 mmHg suction. The patient tolerated the procedure well and was taken to the intensive care unit in stable condition. [id number]/CPS #: [id number] CR
[2018-06-12] MEDS: Chlorhexidine MOUTHWASH 0.12%* 15 ML UDC TOPICAL SCH ×7 (00:40→22:21)
[2018-06-12] MEDS: ZOSYN 3.375 GM Q8H per EXTENDED INFUSION IVPB SCH ×8 (00:40→23:56)
[2018-06-12] MEDS: Albuterol/Ipratropium NEB.SOL* Albuterol 2.5 MG/Ipratropium 0.5 MG 3 ML INH SCH ×4 (01:23→19:37)
[2018-06-12] MEDS: Propofol* 100 ML IV SCH ×3 (03:41→14:33)
[2018-06-12 05:01] LABS: Hematocrit 24 % (33-41); Mean Corpuscular HGB Conc 33 g/dL (31-36); Mean Corpuscular Hemoglobin 36 pg (27-31); Mean Corpuscular Volume 107 fL (80-97); Platelet Count 55 10^3/uL (150-450); Red Blood Count 2.24 10^6 /uL (3.70-4.87); Red Cell Distribution Width 22 % (10.5-15); White Blood Count 13.3 10^3/uL (3.5-10.8)
[2018-06-12 05:11] LABS: BUN/Creatinine Ratio 36.6 (8-20); EGFR Non-African American 152.9 (>60); Magnesium 1.6 mg/dL (1.9-2.7); Phosphorus 2.1 mg/dL (2.5-5.0); Potassium 3.3 mmol/L (3.5-5.0)
[2018-06-12] MEDS: Heparin VIAL(*) 5000 UNITS/ML VIAL (FIVE THOUSAND) SUBCUT SCH (05:21)
[2018-06-12 05:25] LABS: ABS Basophils 0.1 10^3/ul (0-0.2); ABS Eosinophils 0.1 10^3/ul (0-0.6); ABS Lymphocytes 0.3 10^3/ul (1.0-4.8); ABS Monocytes 0.4 10^3/ul (0-0.8); ABS Neutrophils 12.4 10^3/ul (1.5-7.7); ABS Nucleated RBC 0 10^3/ul; Eosinophil % 0.4 %; Lymphocyte % 2.6 %; Nucleated Red Blood Cells % 0.2
[2018-06-12] MEDS: fentaNYL INFUSION 50 MCG/ML* 2,500 MCG/50 ML BAG IV SCH (06:23)
[2018-06-12] MEDS ORDERED: Furosemide IV* 10 MG/ML 2 ML VIAL (20 MG) IV ONE (09:00)
[2018-06-12] MEDS ORDERED: Magnesium Sulfate 1 GM IV* 1 GM/100 ML BAG IV ONE (10:00)
[2018-06-12] MEDS: Vasopressin* 100 UNITS in D5W 250 ML BAG* 245 ML IVPB SCH (10:32)
[2018-06-12] MEDS: KCL 20 MEQ/100 ML IVPREMIX* 20 MEQ/100 ML BAG IV SCH ×2 (10:56→13:19)
[2018-06-12] MEDS: Potassium Chloride LIQUID* 20 MEQ PACKET PO SCH (10:57)
[2018-06-12] MEDS ORDERED: Acetaminophen ADULT LIQ* 650 MG/20.3 ML UDC PO PRN (11:00)
[2018-06-12] MEDS: Fondaparinux* 2.5 MG/0.5 ML SYRINGE SUBCUT SCH (12:02)
--- NOTE | 2018-06-12 13:10 | PN ---
Progress Note - Progress Note Date of Service: 06/12/18 SOAP: Subjective: Patient seen at 0815 this morning Sedated and appears comfortable on ventilator Care reviewed with nurse Objective: Temp Pulse Resp BP Pulse Ox 96 F 112 20 114/70 95 06/12/18 07:30 06/12/18 13:00 06/12/18 13:00 06/12/18 12:00 06/12/18 13:00 Intake & Output 06/10/18 06/11/18 06/12/18 06/13/18 06:59 06:59 06:59 06:59 Intake Total 4818 3967 2136.2 Output Total 4663 865 2562 310 Balance 3664 3071 101.2 -310 Weight 244 lb 11.41 oz 260 lb 2.327 oz 257 lb 15.053 oz Intake: IV Fluids 3132 2671 362 ABX - ZOSYN 200 LR 2200 NS (0.9%) 932 1565 162 Sodium Bicarb 1106 IVPB 042 361 2432 ABX - FLAGYL 94 ABX - ZOSYN 111 322 100 KPhos 180 LR 800 Potassium 125 100 Medicated IV 221 389 365.2 CC - Norepinephrine/ 163 226 98.2 Levophed CC - Propofol/Diprivan 58 55 123 Vasopressin 108 144 IV Narcotic Infusion 1 46 Fentanyl 1 46 Oral 0 Tube Feeding 139 93 Tube Feeding Flush Amount 60 60 Packed Cells 320 Fresh Frozen Plasma 800 Albumin 250 NG Tube Irrigate Amount 150 30 Output: VIVIAN #1 215 40 205 Wound Vac 325 Urine 205 70 Mckeon 041 905 0661 240 Estimated Blood Loss 50 PEX: Comfortable Abd: Wound vac dressing in place, VIVAIN with small amount of serosaguinous fluid in bulb, non-bilious. labs noted Assessment: POD#3 s/p exlap for perforated gallbladder with sepsis and peritonitis Plan: IV abx Start tube feeds VIVIAN drainage Wean ventilator All above and operative findings discussed with and family after surgery yesterday.
[2018-06-12] MEDS: Acetaminophen TAB* 325 MG PO SCH ×2 (14:33→22:20)
--- NOTE | 2018-06-12 15:29 | PN ---
Date of Service: 06/12/18 Critical Care Services: 72 yo F with a past medical history of morbid obesity, COPD, chronic hypoxemic respiratory failure on home O2, steroid dependance, МАРИНА on nightly CPAP, atrial fibrillation Xarelto , hypertension, small- cell lung cancer diagnosed in 2017 status post chemotherapy and radiation completed in March 2018, recent compression fracture, chronic pain on long-term opiates being managed in the ICU for septic shock in the setting of perforated gall bladder s/ p repair and requiring intubation and mechanical ventilation 06/09: Intubated in the ICU due to increased WOB of breathing in the setting of septic shock; s/p ex-lap with finding of gall bladder perforation, abd left open 06/10: patient remains intubated/mechanically ventilated on sedation with propofol, on norepinephrine 06/11: Patient remains intubated/mechanically ventilated on fentanyl and vasopressin. She was taken to the OR for abd wound closure. Procedure was grossly uneventful 06/12: Patient off sedation (propofol) and analgesia(fentanyl) since this am. She is somnolent but easily arousable. She denies pain, fever, discomfort, or difficulty breathing. She intermittently follows commands Vital Signs: Temp Pulse Resp BP SpO2 FiO2 96.6 F 112 20 114/70 95 50 06/12/18 11:30 06/12/18 13:00 06/12/18 13:00 06/12/18 12:00 06/12/18 13:00 06/12 13:00 Physical Exam: Gen: Gross anasarca, NAD HEENT:NCAT, periorbital edema, neck supple, no thyromegaly Lungs:air entry bilaterally Cardiac: +S1 S2, tachycardia Abdomen:soft, hypoactive bowel sounds, obese, wound vac in place connected to pump-CDI Extremities:2+ symmetric edema Neuro:off sedation, somnolent but easily arousal. Non focal Fluid Balance (Past 24 Hours): I= O= Net Intake & Output 06/10/18 06/11/18 06/12/18 06/13/18 06:59 06:59 06:59 06:59 Intake Total 4818 3967 2136.2 Output Total 4519 417 9043 865 Balance 3664 3071 101.2 -865 Weight 244 lb 11.41 oz 260 lb 2.327 oz 257 lb 15.053 oz Intake: IV Fluids 3132 2671 362 ABX - ZOSYN 200 LR 2200 NS (0.9%) 932 1565 162 Sodium Bicarb 1106 IVPB 497 347 4461 ABX - FLAGYL 94 ABX - ZOSYN 111 322 100 KPhos 180 LR 800 Potassium 125 100 Medicated IV 221 389 365.2 CC - Norepinephrine/ 163 226 98.2 Levophed CC - Propofol/Diprivan 58 55 123 Vasopressin 108 144 IV Narcotic Infusion 1 46 Fentanyl 1 46 Oral 0 Tube Feeding 139 93 Tube Feeding Flush Amount 60 60 Packed Cells 320 Fresh Frozen Plasma 800 Albumin 250 NG Tube Irrigate Amount 150 30 Output: VIVIAN #1 215 40 205 Wound Vac 325 Urine 205 70 Mckeon 660 427 2542 795 Estimated Blood Loss 50 ADLs: Meal Record Start: 06/08/18 17: 17 Freq: Status: Complete Protocol: Created 06/08/18 17:17 System (Rec: 06/08/18 17:17 System U-C05) ADLs: Meal Record Start: 06/08/18 19: 14 Freq: ,,18 Status: Complete Protocol: Created 06/08/18 19:14 [id number] (Rec: 06/08/18 19:14 [id number] ICU-C06) ADLs: Meal Record Start: 06/09/18 00: 02 Freq: ,,18 Status: Active Protocol: Created 06/09/18 00:02 [id number] (Rec: 06/09/18 00:02 [id number] ICU-C06) Document 06/09/18 09:00 FVA6300 (Rec: 06/09/18 10:33 NAX3809 ICU-C06) Document 06/09/18 13:00 XEQ3534 (Rec: 06/09/18 13:28 YOV7844 ICU-C06) Document 06/10/18 13:00 SOG8482 (Rec: 06/10/18 17:45 YBW0249 ICU-C07) Document 06/10/18 18:00 FSN4171 (Rec: 06/10/18 18:02 OWO8721 ICU-C07) Document 06/11/18 09:00 IRO4850 (Rec: 06/11/18 12:11 AFN3504 ICU-M32) Document 06/11/18 18:00 YWV3379 (Rec: 06/11/18 18:44 RSY6376 ICU-C07) Document 06/12/18 11:10 CRY8304 (Rec: 06/12/18 11:27 JSF0894 ICU-C06) Intake and Output Start: 06/08/18 17: 17 Freq: DAILY@0600,1400,2200 Status: Complete Protocol: Created 06/08/18 17:17 System (Rec: 06/08/18 17:17 System SSU-C05) Intake and Output Start: 06/08/18 19: 14 Freq: Q1HR Status: Complete Protocol: Created 06/08/18 19:14 UHN5277 (Rec: 06/08/18 19:14 USI8477 ICU-C06) Document 06/08/18 22:28 RZC5132 (Rec: 06/08/18 22:28 FNA4130 ICU-M32) Document 06/08/18 22:46 MDH2924 (Rec: 06/08/18 22:46 TLK9112 ICU-M32) Intake and Output Start: 06/09/18 00: 02 Freq: Q1HR Status: Active Protocol: Created 06/09/18 00:02 MGH0024 (Rec: 06/09/18 00:02 FEC5764 ICU-C06) Document 06/09/18 01:56 ZGX1589 (Rec: 06/09/18 01:56 BJH4196 ICU-M32) Document 06/09/18 04:00 GVR9047 (Rec: 06/09/18 05:09 EBH3692 ICU-M25) Document 06/09/18 08:00 UIL1757 (Rec: 06/09/18 11:30 GLS6439 ICU-C06) Document 06/09/18 12:00 OVC3244 (Rec: 06/09/18 13:30 GPQ6038 ICU-C06) Document 06/09/18 15:44 QWV9019 (Rec: 06/09/18 15:44 UYO3638 ICU-C07) Document 06/09/18 18:00 PCS2617 (Rec: 06/10/18 01:20 EGQ0428 ICU-C06) Document 06/09/18 20:00 BQA7829 (Rec: 06/09/18 21:48 BYP7928 ICU-C06) Document 06/09/18 22:00 FYM8237 (Rec: 06/09/18 22:08 IQP1693 ICU-C06) Document 06/09/18 23:50 UNB2717 (Rec: 06/09/18 23:50 PCN1843 ICU-C06) Document 06/10/18 01:00 JYM3238 (Rec: 06/10/18 01:14 PJX1813 ICU-C06) Document 06/10/18 02:00 SAC4879 (Rec: 06/10/18 02:11 UNH1385 ICU-C06) Document 06/10/18 03:00 PYZ2774 (Rec: 06/10/18 03:22 MLI7407 ICU-C06) Document 06/10/18 04:00 PPP3388 (Rec: 06/10/18 04:30 YUS0709 ICU-C06) Document 06/10/18 05:54 UAA3264 (Rec: 06/10/18 05:56 EBJ6118 ICU-M32) Document 06/10/18 07:00 NDY1586 (Rec: 06/10/18 09:20 OAO5015 ICU-C07) Document 06/10/18 08:00 ZIM9499 (Rec: 06/10/18 09:20 PFT5302 ICU-C07) Document 06/10/18 09:00 BKV3380 (Rec: 06/10/18 10:48 EQR8911 ICU-C07) Document 06/10/18 10:00 JLO0343 (Rec: 06/10/18 10:49 IZL6973 ICU-C07) Document 06/10/18 10:49 JOI7508 (Rec: 06/10/18 10:49 ZFW4012 ICU-C07) Document 06/10/18 12:00 DKR4918 (Rec: 06/10/18 12:42 ZXL5211 ICU-C07) Document 06/10/18 13:00 NVT2492 (Rec: 06/10/18 17:09 ZRL4180 ICU-M32) Document 06/10/18 14:00 VXD7745 (Rec: 06/10/18 17:09 PON0245 ICU-M32) Document 06/10/18 15:00 AAZ9393 (Rec: 06/10/18 17:10 WGY7219 ICU-M32) Document 06/10/18 16:00 LVN9379 (Rec: 06/10/18 18:35 AJA3555 ICU-C07) Document 06/10/18 17:00 KLB6130 (Rec: 06/10/18 18:35 XAS6727 ICU-C07) Document 06/10/18 18:00 YMF1960 (Rec: 06/10/18 18:35 OUD9364 ICU-C07) Document 06/10/18 19:00 BAH5864 (Rec: 06/10/18 19:44 NFN7678 ICU-M32) Document 06/10/18 20:00 KMH1548 (Rec: 06/10/18 20:24 KUS5969 ICU-C07) Document 06/10/18 21:00 CFN7958 (Rec: 06/10/18 21:32 QGQ5731 ICU-C07) Document 06/10/18 22:07 OZS6686 (Rec: 06/10/18 22:07 PRD0977 ICU-M32) Document 06/10/18 23:00 MXQ3318 (Rec: 06/11/18 00:11 EAZ8305 ICU-C07) Document 06/11/18 00:00 PPF2479 (Rec: 06/11/18 00:11 YFT1192 ICU-C07) Document 06/11/18 01:00 DOV6515 (Rec: 06/11/18 02:38 UJO1705 ICU-C07) Document 06/11/18 02:00 WNQ4172 (Rec: 06/11/18 02:43 YQP3623 ICU-C07) Document 06/11/18 03:00 AJC6512 (Rec: 06/11/18 03:47 DPK0209 ICU-M32) Document 06/11/18 04:00 CZL9901 (Rec: 06/11/18 04:31 TQT4809 ICU-C07) Document 06/11/18 05:00 VPG0483 (Rec: 06/11/18 05:59 FCC2484 ICU-M32) Document 06/11/18 06:00 EYI5179 (Rec: 06/11/18 06:11 ABF1480 ICU-M32) Document 06/11/18 07:00 CHK3709 (Rec: 06/11/18 08:23 SKL9936 ICU-M23) Document 06/11/18 08:00 CDM3337 (Rec: 06/11/18 08:24 GNH0623 ICU-M23) Document 06/11/18 09:00 PIA4685 (Rec: 06/11/18 10:01 REL6772 ICU-M32) Document 06/11/18 10:00 REZ2727 (Rec: 06/11/18 10:01 ZHK3036 ICU-M32) Document 06/11/18 11:00 BDN9770 (Rec: 06/11/18 11:02 JHW9179 ICU-M32) Document 06/11/18 12:00 GOV0358 (Rec: 06/11/18 13:47 MNC4918 ICU-M24) Document 06/11/18 15:00 STE0893 (Rec: 06/11/18 15:49 DMJ7024 ICU-C07) Document 06/11/18 15:56 ZYL6953 (Rec: 06/11/18 16:22 OAU8143 ICU-C07) Document 06/11/18 18:00 VUZ8245 (Rec: 06/11/18 18:36 BUG2401 ICU-C07) Document 06/11/18 19:00 REL4241 (Rec: 06/11/18 20:09 ALL3272 ICU-M32) Document 06/11/18 20:00 CGA1355 (Rec: 06/11/18 20:12 HCO6864 ICU-M32) Document 06/11/18 22:00 CVL8789 (Rec: 06/11/18 22:27 DUP3093 ICU-C07) Document 06/11/18 23:00 YDX5501 (Rec: 06/11/18 23:30 FUZ2939 ICU-C07) Document 06/12/18 01:00 WRH7328 (Rec: 06/12/18 01:15 JXB7689 ICU-C07) Document 06/12/18 02:00 ZYQ0234 (Rec: 06/12/18 03:09 ENK6225 ICU-C07) Document 06/12/18 03:00 AYT9856 (Rec: 06/12/18 03:10 TDY5312 ICU-C07) Document 06/12/18 04:00 GQJ9599 (Rec: 06/12/18 04:52 OXQ2364 ICU-C07) Document 06/12/18 05:00 WFU0339 (Rec: 06/12/18 05:05 YVU9928 ICU-C07) Document 06/12/18 06:00 QKI4455 (Rec: 06/12/18 06:32 KKA5628 ICU-C07) Document 06/12/18 07:00 QAE8885 (Rec: 06/12/18 08:28 SAA5720 ICU-C06) Document 06/12/18 08:00 VRW9859 (Rec: 06/12/18 10:13 TRQ0969 ICU-C06) Document 06/12/18 09:00 ZSV8456 (Rec: 06/12/18 10:13 ARZ5879 ICU-C06) Document 06/12/18 10:00 QFW1917 (Rec: 06/12/18 10:35 MHN6372 ICU-C06) Document 06/12/18 11:00 IKI9068 (Rec: 06/12/18 11:28 RAB9980 ICU-C06) Document 06/12/18 11:30 CHH5104 (Rec: 06/12/18 13:30 YUD5912 ICU-C06) Document 06/12/18 13:00 MWB1977 (Rec: 06/12/18 13:31 MBI0038 ICU-C06) Document 06/12/18 14:00 BBJ5152 (Rec: 06/12/18 14:28 URR8801 ICU-C06) Labs: Laboratory Results - last 24 hr 06/12/18 06/12/18 04:41 04:41 WBC 13.3 H RBC 2.24 L Hgb 8.0 L Hct 24 L MCV 107 H MCH 36 H MCHC 33 RDW 22 H Plt Count 55 L MPV 10.0 Neut % (Auto) 93.3 Lymph % (Auto) 2.6 [place] % (Auto) 3.3 Eos % (Auto) 0.4 Baso % (Auto) 0.4 Absolute Neuts (auto) 12.4 H Absolute Lymphs (auto) 0.3 L Absolute Monos (auto) 0.4 Absolute Eos (auto) 0.1 Absolute Basos (auto) 0.1 Absolute Nucleated RBC 0 Nucleated RBC % 0.2 Sodium 140 Potassium 3.3 L Chloride 112 H Carbon Dioxide 22 Anion Gap 6 BUN 15 Creatinine 0.41 L Est GFR ( Amer) 185.0 Est GFR (Non-Af Amer) 152.9 BUN/Creatinine Ratio 36.6 H Glucose 96 Calcium 8.0 L Phosphorus 2.1 L Magnesium 1.6 L Studies: TTE 06/10/18: Conclusions Mild concentric left ventricular hypertrophy is observed. Global left ventricular wall motion and contractility are within normal limits. The estimated ejection fraction is 60-65%. The right ventricular global systolic function is hyperdynamic. There is no evidence of aortic stenosis. Mild mitral leaflet calcification is visualized. There is no evidence of mitral regurgitation. There is no evidence of tricuspid valve regurgitation. There is no significant pericardial effusion. Patient Name: ZELDA NAYLOR Medical Record#: [id number] Ordering Physician: Brown Monzon MD Acct.#: [id number] : 1945 Age: 72 Sex: F Location: [facility] Exam Date: 06/12/18 0700 ADM Status: ADM IN Order Information: CHEST AP OR PORT Accession Number: [id number] CPT: 56615 INDICATION: Acute respiratory distress COMPARISON: Most recent comparison chest x-rays dated April 28, 2018 TECHNIQUE: Single AP portable view of the chest was obtained. FINDINGS: Image quality is compromised due to the relative inferiority of a portable chest x-ray. Again seen is a right internal jugular vein power port with the tip terminating at the right atrium. There is a right neck central line with the tip terminating in the SVC. The endotracheal tube tip terminates approximately 2.7 cm from the lower margin of the clavicle. This appears to be above the level of the senthil without this is obscured on this chest x-ray. A gastric tube terminates below the level the diaphragm at the expected location of the gastric fundus. There is a mild degree of cardiomegaly similar appearance to the previous chest x-ray. There are patchy densities overlying the bilateral lungs as well as densities obscure the bilateral diaphragm. The pulmonary vasculature appears engorged and indistinct. Visualized bones are normal for the patient's age. IMPRESSION: 1. Chest x-ray findings are most consistent with cardiogenic pulmonary edema likely with bibasilar pleural effusions. 2. Potentially an overlying infectious pneumonia is possible as well. 3. Lines and tubes appear to be appropriately positioned as described above. <Electronically signed by Bruce Bruno MD in [place]> 06/12/18815 Dictated By: Bruce Bruno MD Dictated Date/Time: 06/12/18815 Transcribed Date/Time: 06/12/18811 Copy to: CC:Padmini Haynes MD; Brown Monzon MD; Lorelei Pickett MD; Richard Kohli MD This report is only to be considered final once signed by the Provider(s) as displayed in the "<Electronically Signed by >" field (s). Absence of a signature indicates the report is in a draft status and still needs to be finalized. In the event this document was created by someone other than the signing Provider, the individual initiating the document will be listed in the "Entered by:" or "Dictated by:" rapp. 1 of 2 Nutrition: TF promote at goal of 20cc/h x 24 hours till +BM Impression: 72 yo F with hx/o chroinic hypoxemic respiratory failure, COPD, morbid obesity, SCC s/p XRT/CHT, AF on xarelto being managed in the ICU for septic shock from perforated gall bladder with bile peritonitis and intubation/mechanical ventilation for increased WOB Septic shock Lactemia - resolved Urine [place] + brianna tropicalis Perforated gallbladder with bile peritonitis s/p exploratory laparotomy with drainage of RUQ and wound VAC on open abdomen 06/10- abd closure 06/11 Acute respiratory failure with hypoxemia and hypercapnea Acute ventilator dependance Mixed acute respiratory and metabolic acidosis Leukocytosis Anemia Coagulopathy 2.93 likely due to sepsis resolved HAZEL -resolved Diastolic dysfunction hx/o AF on xarelto Hypokalemia Hypophosphatemia Gross anasarca/volume overload Plan: Septic shock Lactemia - resolved Urine [place] + brianna tropicalis Gross anasarca/volume overload - third spacing - MAP >65 - off pressors since this am - UOP improved with lasix to 40cc/h - will consider brianna in urine as colonizer and not treat at this time - continue with zosyn Perforated gallbladder with bile peritonitis s/p exploratory laparotomy with drainage of RUQ and wound VAC on open abdomen abd closure 06/11 -by Dr. Yosi Ballesteros - wound care mgmt as per Gen Surg Acute respiratory failure with hypoxemia and hypercapnea Acute ventilator dependance Pulmonary edema - mechanical vent. Tolerating PS 10 - Pending ABG on current vent settings - Target RASS 0--1 and CPOT <2 while intubated - SBT/SWT - Plan to extubate once more awake and improvement in pulmonary edema Leukocytosis due to sepsis improving from 21-->22-->13 on zosyn Anemia Coagulopathy 2.93 likely due to sepsis resolved with acute intraop blood loss - intraoperatively received 1unit PRBC, 4 units FFP - s/p 1 unit PRBC 06/10 for high pressor needs and anemia - stable H/H thrombocytopenia - change heparin to arixtra for DVT ppx - Check HIT panel HAZEL -resolved Cr improved from 1.04-->0.82-->0.5 + UOP Lasix BID Diastolic dysfunction hx/o AF on xarelto - holding xarelto till after abd closure x 48 hours Hypokalemia Hypophosphatemia due to poor intake replaced with IV KCL and KPhos DVT ppx: SCD. Arixtra. Holding xarelto till after abd closure x 48 hours GI ppx: H2B oral care with chlorhexidine Code status: full code prognosis: critically ill- guarded Critical care issues: septic shock, acute vent dependance/acute respiratory failure Critical care time: 45 minutes
[2018-06-12] MEDS: Dexmedetomidine* 400 MCG in NS 0.9% 100 ML* 96 ML IVPB SCH ×2 (16:54→22:20)
[2018-06-12] MEDS: Furosemide IV* 10 MG/ML 2 ML VIAL (20 MG) IV SCH ×2 (16:56→22:32)
[2018-06-12] MEDS: fentaNYL* 50 MCG/ML 2 ML VIAL (100 MCG VIAL) IV SLOW PU PRN (16:56)
[2018-06-13] MEDS: Albuterol/Ipratropium NEB.SOL* Albuterol 2.5 MG/Ipratropium 0.5 MG 3 ML INH SCH ×4 (01:05→19:35)
[2018-06-13] MEDS: Chlorhexidine MOUTHWASH 0.12%* 15 ML UDC TOPICAL SCH ×4 (02:50→15:25)
[2018-06-13] MEDS: fentaNYL* 50 MCG/ML 2 ML VIAL (100 MCG VIAL) IV SLOW PU PRN ×2 (02:50→20:11)
[2018-06-13] MEDS: Dexmedetomidine* 400 MCG in NS 0.9% 100 ML* 96 ML IVPB SCH ×3 (03:22→14:51)
[2018-06-13 04:52] LABS: Hematocrit 27 % (33-41); Hemoglobin 8.6 g/dL (12.0-16.0); Mean Corpuscular HGB Conc 32 g/dL (31-36); Mean Corpuscular Hemoglobin 34 pg (27-31); Mean Corpuscular Volume 107 fL (80-97); Platelet Count 41 10^3/uL (150-450); Red Cell Distribution Width 21 % (10.5-15); White Blood Count 14.2 10^3/uL (3.5-10.8)
[2018-06-13 05:14] LABS: BUN/Creatinine Ratio 30.8 (8-20); Blood Urea Nitrogen 12 mg/dL (6-24); CO2 Carbon Dioxide 26 mmol/L (22-32); Calcium 8.4 mg/dL (8.6-10.3); Glucose 102 mg/dL (70-100); Magnesium 1.6 mg/dL (1.9-2.7); Phosphorus 1.8 mg/dL (2.5-5.0); Potassium 3.1 mmol/L (3.5-5.0); Sodium 141 mmol/L (135-145)
[2018-06-13 05:17] LABS: ABS Basophils 0 10^3/ul (0-0.2); ABS Eosinophils 0.1 10^3/ul (0-0.6); ABS Lymphocytes 0.7 10^3/ul (1.0-4.8); ABS Monocytes 0.4 10^3/ul (0-0.8); ABS Nucleated RBC 0 10^3/ul; Chloride 115 mmol/L (101-111); Eosinophil % 0.7 %; Lymphocyte % 4.9 %; Nucleated Red Blood Cells % 0.2
[2018-06-13] MEDS: Acetaminophen TAB* 325 MG PO SCH ×3 (06:23→23:22)
[2018-06-13] MEDS: ZOSYN 3.375 GM Q8H per EXTENDED INFUSION IVPB SCH ×6 (10:15→23:40)
[2018-06-13] MEDS: Furosemide IV* 10 MG/ML 2 ML VIAL (20 MG) IV SCH ×2 (10:16→20:04)
[2018-06-13] MEDS: Potassium Chloride LIQUID* 20 MEQ PACKET PO SCH (10:16)
[2018-06-13] MEDS ORDERED: Magnesium Sulfate 1 GM IV* 1 GM/100 ML BAG IV ONE (10:18)
[2018-06-13] MEDS: Vasopressin* 100 UNITS in D5W 250 ML BAG* 245 ML IVPB SCH (10:40)
[2018-06-13] MEDS: oxyCODONE ORAL.SOLN* 5 MG/5 ML UDC PO PRN ×2 (10:51→17:34)
[2018-06-13] MEDS ORDERED: Potassium Phosphate IV* 30 MMOLE in NS 0.9% 250 ML* 250 ML IVPB ONE (11:15)
--- NOTE | 2018-06-13 11:20 | PN ---
Progress Note - Progress Note Date of Service: 06/13/18 SOAP: Subjective: Sedated on ventilator Care reviewed with nurse at bedside Objective: Temp Pulse Resp BP Pulse Ox 96.7 F 71 16 97/62 96 06/13/18 08:00 06/13/18 08:30 06/13/18 10:51 06/13/18 08:30 06/13/18 08:30 Intake & Output 06/11/18 06/12/18 06/13/18 06/14/18 06:59 06:59 06:59 06:59 Intake Total 3967 2136.2 1089.2 Output Total 896 2035 2155 Balance 3071 101.2 -1065.8 Weight 260 lb 2.327 oz 257 lb 15.053 oz 251 lb 5.231 oz Intake: IV Fluids 2671 362 806 ABX - ZOSYN 200 487 NS (0.9%) 1565 162 119 Potassium 200 Sodium Bicarb 1106 IVPB 447 1180 ABX - ZOSYN 322 100 KPhos 180 LR 800 Potassium 125 100 Medicated IV 389 365.2 243.2 CC - Dexmedetomidine/ 36 Precedex CC - Norepinephrine/ 226 98.2 39.2 Levophed CC - Propofol/Diprivan 55 123 68 GEN - Magnesium 100 Vasopressin 108 144 IV Narcotic Infusion 1 46 Fentanyl 1 46 Oral 0 0 Tube Feeding 139 93 Tube Feeding Flush Amount 60 40 Packed Cells 320 NG Tube Irrigate Amount 30 Output: VIVIAN #1 40 205 30 Urine 205 70 Mckeon 856 1575 2055 Estimated Blood Loss 50 Other: Date of Last Bowel 06/13/18 Movement # Bowel Movements 1 Estimated Stool Amount Small PEX: Abd is soft and slightly distended. Few bowel sounds. Wound vac in place VIVIAN with small amount of bilious fluid in bulb Laboratory Results - last 24 hr 06/12/18 06/13/18 06/13/18 20:10 04:20 04:20 WBC 14.2 H RBC 2.50 L Hgb 8.6 L Hct 27 L MCV 107 H MCH 34 H MCHC 32 RDW 21 H Plt Count 41 L MPV 10.0 Neut % (Auto) 91.4 Lymph % (Auto) 4.9 [place] % (Auto) 2.9 Eos % (Auto) 0.7 Baso % (Auto) 0.1 Absolute Neuts (auto) 13.0 H Absolute Lymphs (auto) 0.7 L Absolute Monos (auto) 0.4 Absolute Eos (auto) 0.1 Absolute Basos (auto) 0 Absolute Nucleated RBC 0 Nucleated RBC % 0.2 Patient Temperature 104.8 ABG pH 7.47 H ABG pH (Temp Correct) Not Reportable ABG pCO2 35 ABG pCO2 (Temp Corrct Not Reportable ABG pO2 99 ABG pO2 (Temp Correct Not Reportable ABG HCO3 26.6 ABG O2 Saturation 99.3 H ABG Base Excess 2.1 H Respiration Rate 24 Ventilator Type 450 Vent Mode Not Reportable FiO2 50 Inspiratory Time Not Reportable PEEP 5 Pressure Support Not Reportable Pressure Control Not Reportable EPAP Not Reportable IPAP Not Reportable BiPAP Not Reportable Sodium 141 Potassium 3.1 L Chloride 115 H Carbon Dioxide 26 Anion Gap Not Reportable BUN 12 Creatinine 0.39 L Est GFR ( Amer) 196.0 Est GFR (Non-Af Amer) 162.0 BUN/Creatinine Ratio 30.8 H Glucose 102 H Calcium 8.4 L Phosphorus 1.8 L Magnesium 1.6 L Assessment: S/P exlap and drainage of perforated gallbladder-sepsis with peritonitis Ventilator dependence Thrombocytopenia Plan: Wean vent Tube feeds-on hold for high residual and attempted extubation possibly today IV abx VIVIAN drainage Wound vac Discussed care and progress with at bedside today Also discussed with Dr. Monzon, Deputy Commissioner, today.
[2018-06-13] MEDS: KCL 20 MEQ/100 ML IVPREMIX* 20 MEQ/100 ML BAG IV SCH ×4 (12:48→20:03)
[2018-06-13] MEDS: Fondaparinux* 2.5 MG/0.5 ML SYRINGE SUBCUT SCH (12:50)
--- NOTE | 2018-06-13 15:07 | PN ---
Date of Service: 06/13/18 Critical Care Services: 72 yo F with a past medical history of morbid obesity, COPD, chronic hypoxemic respiratory failure on home O2, steroid dependance, МАРИНА on nightly CPAP, atrial fibrillation Xarelto , hypertension, small- cell lung cancer diagnosed in 2017 status post chemotherapy and radiation completed in March 2018, recent compression fracture, chronic pain on long-term opiates being managed in the ICU for septic shock in the setting of perforated gall bladder s/ p repair and requiring intubation and mechanical ventilation 06/09: Intubated in the ICU due to increased WOB of breathing in the setting of septic shock; s/p ex-lap with finding of gall bladder perforation, abd left open 06/10- 06/11: Remained intubated/mechanically ventilated on fentanyl and vasopressin/NE 06/11: Taken to the OR for abd wound closure. Procedure was grossly uneventful 06/12: Patient off sedation (propofol) and analgesia(fentanyl) 06/12. She is somnolent but easily arousable. She denies pain, fever, discomfort, or difficulty breathing. She intermittently follows commands 06/13: Patient extubated today. Neurologically intact and follows commands, appropriately. She has a low voice which states is her usual. She reports abdominal pain. No fever, chest pain, N/V. + weak cough. Has been off fentanyl since yesterday am. Off vasopressin. On 0.5mcg of NE. Vital Signs: Temp Pulse Resp BP SpO2 FiO2 96 F 86 17 113/75 96 40 06/13/18 12:00 06/13/18 14:30 06/13/18 14:30 06/13/18 14:30 06/13/18 14:30 06/13 12:41 Physical Exam: Gen: Gross anasarca, NAD HEENT:NCAT, short neck, neck supple, no thyromegaly Lungs:air entry bilaterally Cardiac: +S1 S2, tachycardia Abdomen:soft, hypoactive bowel sounds, obese, wound vac in place connected to pump-CDI Extremities:2+ symmetric edema even on the dorsum of the feet Neuro:AAOx 3, non focal, weak cough Fluid Balance (Past 24 Hours): I= O= Net Intake & Output 06/11/18 06/12/18 06/13/18 06/14/18 06:59 06:59 06:59 06:59 Intake Total 3967 2136.2 1089.2 Output Total 896 2035 2155 785 Balance 3071 101.2 -1065.8 -785 Weight 260 lb 2.327 oz 257 lb 15.053 oz 251 lb 5.231 oz Intake: IV Fluids 2671 362 806 ABX - ZOSYN 200 487 NS (0.9%) 1565 162 119 Potassium 200 Sodium Bicarb 1106 IVPB 447 1180 ABX - ZOSYN 322 100 KPhos 180 LR 800 Potassium 125 100 Medicated IV 389 365.2 243.2 CC - Dexmedetomidine/ 36 Precedex CC - Norepinephrine/ 226 98.2 39.2 Levophed CC - Propofol/Diprivan 55 123 68 GEN - Magnesium 100 Vasopressin 108 144 IV Narcotic Infusion 1 46 Fentanyl 1 46 Oral 0 0 Tube Feeding 139 93 Tube Feeding Flush Amount 60 40 Packed Cells 320 NG Tube Irrigate Amount 30 Output: VIVIAN #1 40 205 30 20 Urine 205 70 Mckeon 856 1575 2055 765 Estimated Blood Loss 50 Other: Date of Last Bowel 06/13/18 Movement # Bowel Movements 1 Estimated Stool Amount Small ADLs: Meal Record Start: 06/08/18 17: 17 Freq: Status: Complete Protocol: Created 06/08/18 17:17 System (Rec: 06/08/18 17:17 System U-C05) ADLs: Meal Record Start: 06/08/18 19: 14 Freq: ,13,18 Status: Complete Protocol: Created 06/08/18 19:14 [id number] (Rec: 06/08/18 19:14 [id number] ICU-C06) ADLs: Meal Record Start: 06/09/18 00: 02 Freq: ,13,18 Status: Active Protocol: Created 06/09/18 00:02 [id number] (Rec: 06/09/18 00:02 HIX4005 ICU-C06) Document 06/09/18 09:00 [id number] (Rec: 06/09/18 10:33 HVA8675 ICU-C06) Document 06/09/18 13:00 PXH7439 (Rec: 06/09/18 13:28 JIT7096 ICU-C06) Document 06/10/18 13:00 NTX7021 (Rec: 06/10/18 17:45 BKY2089 ICU-C07) Document 06/10/18 18:00 HOZ4643 (Rec: 06/10/18 18:02 UQU4370 ICU-C07) Document 06/11/18 09:00 URJ1651 (Rec: 06/11/18 12:11 PMR1666 ICU-M32) Document 06/11/18 18:00 NKJ0309 (Rec: 06/11/18 18:44 DPU8705 ICU-C07) Document 06/12/18 11:10 FKS6246 (Rec: 06/12/18 11:27 ZNL4364 ICU-C06) Document 06/12/18 13:00 CNE1611 (Rec: 06/12/18 18:31 MDD3504 ICU-C06) Document 06/12/18 18:30 CKL9404 (Rec: 06/12/18 19:26 LPO2208 ICU-C06) Intake and Output Start: 06/08/18 17: 17 Freq: DAILY@0600,1400,2200 Status: Complete Protocol: Created 06/08/18 17:17 System (Rec: 06/08/18 17:17 System SSU-C05) Intake and Output Start: 06/08/18 19: 14 Freq: Q1HR Status: Complete Protocol: Created 06/08/18 19:14 CLF1572 (Rec: 06/08/18 19:14 WVJ0294 ICU-C06) Document 06/08/18 22:28 CBL7410 (Rec: 06/08/18 22:28 DLA2225 ICU-M32) Document 06/08/18 22:46 LTX5643 (Rec: 06/08/18 22:46 QPP6295 ICU-M32) Intake and Output Start: 06/09/18 00: 02 Freq: Q1HR Status: Active Protocol: Created 06/09/18 00:02 TCO4989 (Rec: 06/09/18 00:02 BIW6230 ICU-C06) Document 06/09/18 01:56 OBF7402 (Rec: 06/09/18 01:56 WBI8194 ICU-M32) Document 06/09/18 04:00 MWK2868 (Rec: 06/09/18 05:09 NWL3168 ICU-M25) Document 06/09/18 08:00 KEW3731 (Rec: 06/09/18 11:30 XRT1117 ICU-C06) Document 06/09/18 12:00 XGW7992 (Rec: 06/09/18 13:30 KGS9807 ICU-C06) Document 06/09/18 15:44 YQO5299 (Rec: 06/09/18 15:44 EHD8247 ICU-C07) Document 06/09/18 18:00 HBV6829 (Rec: 06/10/18 01:20 TKW2982 ICU-C06) Document 06/09/18 20:00 GZL5903 (Rec: 06/09/18 21:48 ACU0909 ICU-C06) Document 06/09/18 22:00 AQJ1585 (Rec: 06/09/18 22:08 PAF3706 ICU-C06) Document 06/09/18 23:50 JIB2880 (Rec: 06/09/18 23:50 LHQ8776 ICU-C06) Document 06/10/18 01:00 AYW9031 (Rec: 06/10/18 01:14 ECR4522 ICU-C06) Document 06/10/18 02:00 FJN3884 (Rec: 06/10/18 02:11 ENW7374 ICU-C06) Document 06/10/18 03:00 XZU4146 (Rec: 06/10/18 03:22 ZIW4076 ICU-C06) Document 06/10/18 04:00 UZR3147 (Rec: 06/10/18 04:30 TXD1499 ICU-C06) Document 06/10/18 05:54 YJY5533 (Rec: 06/10/18 05:56 HZQ7639 ICU-M32) Document 06/10/18 07:00 HTO8768 (Rec: 06/10/18 09:20 RWI0142 ICU-C07) Document 06/10/18 08:00 KHG4468 (Rec: 06/10/18 09:20 TPA1601 ICU-C07) Document 06/10/18 09:00 HAP9779 (Rec: 06/10/18 10:48 IPE4675 ICU-C07) Document 06/10/18 10:00 YUB7288 (Rec: 06/10/18 10:49 MBS7640 ICU-C07) Document 06/10/18 10:49 ICY9862 (Rec: 06/10/18 10:49 WCS0005 ICU-C07) Document 06/10/18 12:00 DJQ2361 (Rec: 06/10/18 12:42 PYC0630 ICU-C07) Document 06/10/18 13:00 JNK7725 (Rec: 06/10/18 17:09 ZAS1168 ICU-M32) Document 06/10/18 14:00 XVX1206 (Rec: 06/10/18 17:09 CIN1496 ICU-M32) Document 06/10/18 15:00 OEZ9643 (Rec: 06/10/18 17:10 GJR7729 ICU-M32) Document 06/10/18 16:00 JEF9218 (Rec: 06/10/18 18:35 UFW1512 ICU-C07) Document 06/10/18 17:00 HOG6244 (Rec: 06/10/18 18:35 FBC9108 ICU-C07) Document 06/10/18 18:00 EKD7719 (Rec: 06/10/18 18:35 REJ8011 ICU-C07) Document 06/10/18 19:00 ULE1763 (Rec: 06/10/18 19:44 DLB3263 ICU-M32) Document 06/10/18 20:00 DWF5038 (Rec: 06/10/18 20:24 KFL0961 ICU-C07) Document 06/10/18 21:00 KQT7329 (Rec: 06/10/18 21:32 RWZ0659 ICU-C07) Document 06/10/18 22:07 QNJ6432 (Rec: 06/10/18 22:07 TSF3778 ICU-M32) Document 06/10/18 23:00 RYZ4703 (Rec: 06/11/18 00:11 YVE2128 ICU-C07) Document 06/11/18 00:00 BUS1936 (Rec: 06/11/18 00:11 XXV9793 ICU-C07) Document 06/11/18 01:00 HOQ7281 (Rec: 06/11/18 02:38 HCS9722 ICU-C07) Document 06/11/18 02:00 DSJ1641 (Rec: 06/11/18 02:43 KIL7339 ICU-C07) Document 06/11/18 03:00 ZCU6357 (Rec: 06/11/18 03:47 KMF6838 ICU-M32) Document 06/11/18 04:00 GKH0459 (Rec: 06/11/18 04:31 LIM9534 ICU-C07) Document 06/11/18 05:00 RWH6499 (Rec: 06/11/18 05:59 AML1000 ICU-M32) Document 06/11/18 06:00 ANM0094 (Rec: 06/11/18 06:11 KHY4695 ICU-M32) Document 06/11/18 07:00 SGL0474 (Rec: 06/11/18 08:23 RYC6992 ICU-M23) Document 06/11/18 08:00 TCV1026 (Rec: 06/11/18 08:24 PDK6544 ICU-M23) Document 06/11/18 09:00 ARA8630 (Rec: 06/11/18 10:01 JVR8334 ICU-M32) Document 06/11/18 10:00 RKT2714 (Rec: 06/11/18 10:01 RMY2613 ICU-M32) Document 06/11/18 11:00 XZO8146 (Rec: 06/11/18 11:02 ESL3326 ICU-M32) Document 06/11/18 12:00 WNB8846 (Rec: 06/11/18 13:47 ALS8899 ICU-M24) Document 06/11/18 15:00 ELX0574 (Rec: 06/11/18 15:49 MLG1561 ICU-C07) Document 06/11/18 15:56 RCB3054 (Rec: 06/11/18 16:22 QZE2085 ICU-C07) Document 06/11/18 18:00 JMU4130 (Rec: 06/11/18 18:36 YIY6382 ICU-C07) Document 06/11/18 19:00 EKV9785 (Rec: 06/11/18 20:09 MVR2341 ICU-M32) Document 06/11/18 20:00 SAL6407 (Rec: 06/11/18 20:12 GFB2832 ICU-M32) Document 06/11/18 22:00 FUS7620 (Rec: 06/11/18 22:27 QBP5492 ICU-C07) Document 06/11/18 23:00 BAT2045 (Rec: 06/11/18 23:30 EES9328 ICU-C07) Document 06/12/18 01:00 GGJ5099 (Rec: 06/12/18 01:15 MRQ0097 ICU-C07) Document 06/12/18 02:00 ACP0733 (Rec: 06/12/18 03:09 SIW9457 ICU-C07) Document 06/12/18 03:00 WSR0571 (Rec: 06/12/18 03:10 SIK1045 ICU-C07) Document 06/12/18 04:00 ZXN8807 (Rec: 06/12/18 04:52 EAZ5483 ICU-C07) Document 06/12/18 05:00 MWK0020 (Rec: 06/12/18 05:05 PIO3538 ICU-C07) Document 06/12/18 06:00 IYM2280 (Rec: 06/12/18 06:32 WMZ9295 ICU-C07) Document 06/12/18 07:00 UDL8017 (Rec: 06/12/18 08:28 UEB7736 ICU-C06) Document 06/12/18 08:00 XMB5064 (Rec: 06/12/18 10:13 PDT9320 ICU-C06) Document 06/12/18 09:00 XQO7462 (Rec: 06/12/18 10:13 YPH5144 ICU-C06) Document 06/12/18 10:00 OLS2136 (Rec: 06/12/18 10:35 AAG9565 ICU-C06) Document 06/12/18 11:00 ASE9117 (Rec: 06/12/18 11:28 ETP0221 ICU-C06) Document 06/12/18 11:30 SHL4699 (Rec: 06/12/18 13:30 LNE7222 ICU-C06) Document 06/12/18 13:00 RWB2025 (Rec: 06/12/18 13:31 OLK7013 ICU-C06) Document 06/12/18 14:00 JPH4586 (Rec: 06/12/18 14:28 TYO1223 ICU-C06) Document 06/12/18 15:00 TPV7377 (Rec: 06/12/18 19:12 WPC4551 ICU-C06) Document 06/12/18 17:30 OCV1356 (Rec: 06/12/18 19:25 WCM5334 ICU-C06) Document 06/12/18 18:30 CLV1453 (Rec: 06/12/18 19:26 DBQ9667 ICU-C06) Document 06/12/18 19:00 YLK0066 (Rec: 06/12/18 20:47 GGB1889 ICU-C06) Document 06/12/18 21:00 TOZ4346 (Rec: 06/12/18 21:57 GQR3035 ICU-C06) Document 06/12/18 23:00 ICV1883 (Rec: 06/12/18 23:49 WUM3313 ICU-C06) Document 06/13/18 01:00 ZGE5473 (Rec: 06/13/18 01:18 SOF2589 ICU-C06) Document 06/13/18 02:00 XXW6208 (Rec: 06/13/18 02:05 NQX7076 ICU-C06) Document 06/13/18 03:00 UMH9795 (Rec: 06/13/18 03:22 KYY1659 ICU-C06) Document 06/13/18 04:00 IUT0789 (Rec: 06/13/18 05:37 EJV1724 ICU-C06) Document 06/13/18 05:00 AVE0291 (Rec: 06/13/18 05:50 QKA5072 ICU-C06) Document 06/13/18 06:00 TTT3701 (Rec: 06/13/18 07:25 ZWT5219 ICU-C06) Document 06/13/18 07:00 SYV0613 (Rec: 06/13/18 13:09 OVE5006 ICU-C06) Document 06/13/18 08:00 AAY7095 (Rec: 06/13/18 13:09 KES5547 ICU-C06) Document 06/13/18 08:00 YMC9444 (Rec: 06/13/18 13:11 UIM1765 ICU-C06) Document 06/13/18 09:00 LEQ8556 (Rec: 06/13/18 13:10 HDB4665 ICU-C06) Document 06/13/18 10:00 XXA9644 (Rec: 06/13/18 13:10 EZN5522 ICU-C06) Document 06/13/18 11:00 CJF2750 (Rec: 06/13/18 13:10 OPT6999 ICU-C06) Document 06/13/18 12:00 FEK7342 (Rec: 06/13/18 13:10 XWZ2582 ICU-C06) Document 06/13/18 13:00 ABE7698 (Rec: 06/13/18 14:50 HGN7702 ICU-C06) Document 06/13/18 14:00 WDB5231 (Rec: 06/13/18 14:50 JTT1663 ICU-C06) Document 06/13/18 14:50 ICE1305 (Rec: 06/13/18 14:50 BUK9839 ICU-C06) Labs: Laboratory Results - last 24 hr 06/12/18 06/13/18 06/13/18 20:10 04:20 04:20 WBC 14.2 H RBC 2.50 L Hgb 8.6 L Hct 27 L MCV 107 H MCH 34 H MCHC 32 RDW 21 H Plt Count 41 L MPV 10.0 Neut % (Auto) 91.4 Lymph % (Auto) 4.9 [place] % (Auto) 2.9 Eos % (Auto) 0.7 Baso % (Auto) 0.1 Absolute Neuts (auto) 13.0 H Absolute Lymphs (auto) 0.7 L Absolute Monos (auto) 0.4 Absolute Eos (auto) 0.1 Absolute Basos (auto) 0 Absolute Nucleated RBC 0 Nucleated RBC % 0.2 Patient Temperature 104.8 ABG pH 7.47 H ABG pH (Temp Correct) Not Reportable ABG pCO2 35 ABG pCO2 (Temp Corrct Not Reportable ABG pO2 99 ABG pO2 (Temp Correct Not Reportable ABG HCO3 26.6 ABG O2 Saturation 99.3 H ABG Base Excess 2.1 H Respiration Rate 24 Ventilator Type 450 Vent Mode Not Reportable FiO2 50 Inspiratory Time Not Reportable PEEP 5 Pressure Support Not Reportable Pressure Control Not Reportable EPAP Not Reportable IPAP Not Reportable BiPAP Not Reportable Sodium 141 Potassium 3.1 L Chloride 115 H Carbon Dioxide 26 Anion Gap Not Reportable BUN 12 Creatinine 0.39 L Est GFR ( Amer) 196.0 Est GFR (Non-Af Amer) 162.0 BUN/Creatinine Ratio 30.8 H Glucose 102 H Calcium 8.4 L Phosphorus 1.8 L Magnesium 1.6 L Studies: Patient Name: ZELDA NAYLOR Medical Record#: [id number] Ordering Physician: Brown Monzon MD Acct.#: [id number] : 1945 Age: 72 Sex: F Location: [facility] Exam Date: 06/13/18 1017 ADM Status: ADM IN Order Information: CHEST AP OR PORT Accession Number: [id number] CPT: 54395 Indication: Dyspnea, follow-up pneumonia. Single frontal view of the chest performed at 1217 hours was reviewed. Comparison is made with previous exam dated April 28, 2018. Cardiomegaly is noted. ET tube in appropriate position. Right upper lobe infiltrate is noted. There is a small cardiac recording device in the left lower chest. IMPRESSION: RIGHT UPPER LOBE INFILTRATE. ET TUBE, TUBES AND LINES APPEAR IN APPROPRIATE POSITION. <Electronically signed by Myrtle Larson MD in OV> 06/13/18 1307 Dictated By: Myrtle Larson MD Dictated Date/Time: 06/13/18 1307 Transcribed Date/Time: 06/13/18 1303 Copy to: CC:Padmini Haynes MD; Brown Monzon MD; Lorelei Pickett MD; Richard Kohli MD Imaging - [facility] Imaging - [facility] [address] [address] ph ([phone]) ph ([phone]) ph ([phone]) This report is only to be considered final once signed by the Provider(s) as displayed in the "<Electronically Signed by >" field (s). Absence of a signature indicates the report is in a draft status and still needs to be finalized. In the event this document was created by someone other than the signing Provider, the individual initiating the document will be listed in the "Entered by:" or "Dictated by:" rapp. 1 of 1 Nutrition: NPO at the time Impression: 72 yo F with hx/o chroinic hypoxemic respiratory failure, COPD, morbid obesity, SCC s/p XRT/CHT, AF on xarelto being managed in the ICU for septic shock from perforated gall bladder with bile peritonitis and intubation/mechanical ventilation for increased WOB Septic shock -resolving Lactemia - resolved Urine [place] + brianna tropicalis Perforated gallbladder with bile peritonitis s/p exploratory laparotomy with drainage of RUQ and wound VAC on open abdomen 06/10- abd closure 06/11 Acute respiratory failure with hypoxemia and hypercapnea Acute ventilator dependance - 06/09- extubated 06/13 Mixed acute respiratory and metabolic acidosis - resolved Leukocytosis Anemia Coagulopathy 2.93 likely due to sepsis resolved HAZEL -resolved Diastolic dysfunction hx/o AF on xarelto Electrolyte derrangements: Hypokalemia, Hypophosphatemia, hypomagnesemia Gross anasarca/volume overload Plan: Septic shock- resolved Lactemia - resolved Urine [place] + brianna tropicalis Gross anasarca/volume overload - third spacing - MAP >65 - Off norepinephrine - UOP improved and hemodynamics remain stable with diuresis on with lasix - will consider brianna in urine as colonizer and not treat at this time - continue with zosyn Perforated gallbladder with bile peritonitis s/p exploratory laparotomy with drainage of RUQ and wound VAC on open abdomen abd closure 06/11 -by Dr. Yosi Ballesteros - wound care mgmt as per Gen Surg Acute respiratory failure with hypoxemia and hypercapnea Acute ventilator dependance - 06/09- extubated 06/13 Mixed acute respiratory and metabolic acidosis - resolved Pulmonary edema-improving Weak cough - continue with bronchodilator and metanebs q6h to help with coughing and avoid post-op pulm complications Leukocytosis due to sepsis improving from 21-->22-->13-->14, likely reactive on zosyn Anemia Coagulopathy 2.93 likely due to sepsis resolved with acute intraop blood loss - intraoperatively received 1unit PRBC, 4 units FFP - s/p 1 unit PRBC 06/10 for high pressor needs and anemia - stable H/H thrombocytopenia - changed heparin to arixtra for DVT ppx 06/12 - HIT panel 06/12 pending HAZEL -resolved Cr improved from 1.04-->0.82-->0.5 + UOP Lasix 20 mg IV BID Diastolic dysfunction hx/o AF on xarelto - Consider restarting home xarelto if uneventful post extubation >24 hours Hypokalemia Hypophosphatemia Hypomagnesemia due to poor intake replaced with IV KCL, KPhos, MgSO4 will start TF if fails swallow eval DVT ppx: SCD. Arixtra. Holding xarelto, consider restarting if platelet count is not a concern and uneventful after extubation >24 hours GI ppx: H2B Code status: full code prognosis: critically ill- guarded Critical care issues: septic shock, acute vent dependance/acute respiratory failure, post extubation <24 hours Critical care time: 45 minutes
[2018-06-13] MEDS: Famotidine SUSP ORALSYR 8 MG/ML J TUBE SCH (21:29)
[2018-06-13] MEDS ORDERED: fentaNYL* 50 MCG/ML 2 ML VIAL (100 MCG VIAL) IV SLOW PU ONE (22:43)
[2018-06-13] MEDS ORDERED: fentaNYL* 50 MCG/ML 2 ML VIAL (100 MCG VIAL) ONE (22:45)
--- NOTE | 2018-06-13 23:03 | PN ---
Progress Note - Progress Note Date of Service: 06/13/18 Note: Paged for tachypnea, tachycardia and SOB - Patient with low voice/soft spoken barely audible and nods her head minimally for pain and SOB. Poor respiratory effort with weak cough. Faint b/l rhonchi. No wheeze or rales. Will give extra fentanyl, CXR and transition vapotherm. If no improvement will contact telesales specialist. Unable to communicate with patient if she wants to be re- intubated. Spoke with telesales specialist - transitioned patient to BiPAP with her history of МАРИНА and COPD. MOdest improvement in respiratory status.
[2018-06-13] MEDS ORDERED: Magnesium Sulfate 2 GM IV* 2 GM/50 ML BAG IVPB ONE (23:37)
[2018-06-13] MEDS ORDERED: Furosemide IV* 10 MG/ML VIAL (40 MG) IV ONE (23:37)
[2018-06-13] MEDS ORDERED: Morphine INJ* 2 MG/ML 1 ML SYRINGE (TWO MG - NEW SYRINGE VERSION) IV ONE (23:48)
[2018-06-14] MEDS: Albuterol/Ipratropium NEB.SOL* Albuterol 2.5 MG/Ipratropium 0.5 MG 3 ML INH SCH ×4 (00:55→19:30)
[2018-06-14] MEDS: oxyCODONE ORAL.SOLN* 5 MG/5 ML UDC PO PRN ×3 (01:18→17:59)
[2018-06-14] MEDS: fentaNYL* 50 MCG/ML 2 ML VIAL (100 MCG VIAL) IV SLOW PU PRN ×3 (04:20→19:51)
[2018-06-14 05:30] LABS: Phosphorus 3.7 mg/dL (2.5-5.0)
[2018-06-14 06:03] LABS: Hematocrit 30 % (33-41); Hemoglobin 9.4 g/dL (12.0-16.0); Mean Corpuscular HGB Conc 32 g/dL (31-36); Mean Corpuscular Hemoglobin 34 pg (27-31); Mean Corpuscular Volume 108 fL (80-97); Mean Platelet Volume 11.1 fL (7.4-10.4); Platelet Count 35 10^3/uL (150-450); Red Blood Count 2.74 10^6 /uL (3.70-4.87); Red Cell Distribution Width 22 % (10.5-15); White Blood Count 20.4 10^3/uL (3.5-10.8)
[2018-06-14 06:13] LABS: BUN/Creatinine Ratio 22.9 (8-20); Calcium 8.5 mg/dL (8.6-10.3); EGFR African American 154.3 (>60); EGFR Non-African American 127.5 (>60); Potassium 4.7 mmol/L (3.5-5.0)
[2018-06-14 06:35] LABS: ABS Basophils 0 10^3/ul (0-0.2); ABS Eosinophils 0 10^3/ul (0-0.6); ABS Lymphocytes 0.6 10^3/ul (1.0-4.8); ABS Monocytes 0.6 10^3/ul (0-0.8); ABS Neutrophils 19.2 10^3/ul (1.5-7.7); ABS Nucleated RBC 0.1 10^3/ul; Eosinophil % 0.2 %; Nucleated Red Blood Cells % 0.3
[2018-06-14] MEDS: Famotidine SUSP ORALSYR 8 MG/ML J TUBE SCH ×2 (08:15→22:05)
[2018-06-14] MEDS: Furosemide IV* 10 MG/ML 2 ML VIAL (20 MG) IV SCH ×2 (08:15→20:44)
[2018-06-14] MEDS: Acetaminophen TAB* 325 MG PO SCH ×3 (08:16→22:29)
--- NOTE | 2018-06-14 08:59 | PN ---
Progress Note - Progress Note Date of Service: 06/14/18 SOAP: Subjective: Pt seen and examined. on bipap. cannot phonate well, but moves lips and nods head. abdo pain, no flatus, some nausea Objective: Temp Pulse Resp BP Pulse Ox 97.6 F 100 27 123/67 99 06/14/18 04:00 06/14/18 08:30 06/14/18 08:30 06/14/18 06:00 06/14/18 08:30 Intake & Output 06/13/18 06/14/18 06/14/18 22:59 06:59 14:59 Intake Total 565 509 Output Total 858 278 Balance -293 231 Weight 255 lb 4.725 oz abdo: soft/ obese/ tender diffusely w/o rebound; edematous VIVIAN scant sero-bilious, vac dressing intact, no drainage labs noted wbc up, platelet down Assessment: POD5/3 ex lap drainage, takeback total body water overloaded. HD stable, on tube feeds awaiting bowel function Plan: continue tube feeds OOB abx labs in am change lines in wbc continues to increase
--- NOTE | 2018-06-14 09:47 | PN ---
Date of Service: 06/14/18 - [facility] note Critical Care Services: Pt seen and examined at bedside. Pt is on BiPAP. O/n events noted. Vitals, labs, meds reviewed, plan of care discussed with bedside RN Pt is 72 yo F with a past medical history of morbid obesity, asthma/COPD, chronic hypoxemic respiratory failure on home O2, steroid dependance, МАРИНА on nightly CPAP, atrial fibrillation on Xarelto, hypertension, small cell lung cancer diagnosed in 2017 status post chemotherapy and radiation completed in March 2018, recent compression fracture, chronic pain on long-term opiates being managed in the ICU for septic shock from perforated gall bladder s/p repair and requiring intubation and mechanical ventilation 06/09: Intubated in the ICU due to increased WOB of breathing in the setting of septic shock; s/p ex-lap with finding of gall bladder perforation, abd left open 06/10- 06/11: Remained intubated/mechanically ventilated on fentanyl and vasopressin/NE 06/11: Taken to the OR for abd wound closure. Procedure was grossly uneventful 06/12: Patient off sedation (propofol) and analgesia(fentanyl) 06/13: Patient extubated. 06/14: Was tachycardia and tachypneic last night, was placed with BiPAP with improvement. Is requiring 100% FiO2. Off pressors. Vital Signs: Temp Pulse Resp BP SpO2 FiO2 97.6 F 100 27 123/67 99 35 06/14/18 04:00 06/14/18 08:30 06/14/18 08:30 06/14/18 06:00 06/14/18 08:30 06/14 08:30 Physical Exam: Gen: Pt on BiPAP, alert, awake, speaks in low voice HEENT: PERRLA, No JVD Lungs: Dimnished air entry b/l, no wheeze Cardiac: S1, S2+, regular, tachycardic Abdomen: Obese, BS+, VIVIAN drain +, site looks good, mild tenderness+ Extremities: Anasarca+ Neuro: Alert, awake, no focal deficits Skin: No rash, bruises +, no petechiae Fluid Balance (Past 24 Hours): I= 1583 O= 1921 Net -338 Intake & Output 06/12/18 06/13/18 06/14/18 06/15/18 06:59 06:59 06:59 06:59 Intake Total 2136.2 1089.2 1583 Output Total 2034 2155 1921 45 Balance 101.2 -1065.8 -338 -45 Weight 257 lb 15.053 oz 251 lb 5.231 oz 255 lb 4.725 oz Intake: IV Fluids 362 806 367 ABX - ZOSYN 200 487 KPhos 270 NS (0.9%) 162 119 97 Potassium 200 IVPB 1180 916 ABX - ZOSYN 100 328 KPhos 180 LR 800 Magnesium 165 Potassium 100 423 Medicated IV 365.2 243.2 17 CC - Dexmedetomidine/ 36 8 Precedex CC - Norepinephrine/ 98.2 39.2 9 Levophed CC - Propofol/Diprivan 123 68 GEN - Magnesium 100 Vasopressin 144 IV Narcotic Infusion 46 Fentanyl 46 Oral 0 0 Tube Feeding 93 153 Tube Feeding Flush Amount 60 40 130 NG Tube Irrigate Amount 30 Output: VIVIAN #1 205 30 48 Urine 205 70 45 Mckeon 1575 2055 1823 Estimated Blood Loss 50 Tube Feeding Residual 50 Amount Wasted Other: Date of Last Bowel 06/13/18 06/14/18 Movement # Bowel Movements 1 1 Estimated Stool Amount Small Large Labs: Laboratory Results - last 24 hr 06/14/18 06/14/18 05:05 05:05 WBC 20.4 H RBC 2.74 L Hgb 9.4 L Hct 30 L MCV 108 H MCH 34 H MCHC 32 RDW 22 H Plt Count 35 L MPV 11.1 H Neut % (Auto) 93.9 Lymph % (Auto) 3.0 [place] % (Auto) 2.8 Eos % (Auto) 0.2 Baso % (Auto) 0.1 Absolute Neuts (auto) 19.2 H Absolute Lymphs (auto) 0.6 L Absolute Monos (auto) 0.6 Absolute Eos (auto) 0 Absolute Basos (auto) 0 Absolute Nucleated RBC 0.1 Nucleated RBC % 0.3 Sodium 142 Potassium 4.7 D Chloride 110 Carbon Dioxide 24 Anion Gap 8 BUN 11 Creatinine 0.48 L Est GFR ( Amer) 154.3 Est GFR (Non-Af Amer) 127.5 BUN/Creatinine Ratio 22.9 H Glucose 79 Calcium 8.5 L Phosphorus 3.7 Magnesium 2.0 Studies: CXR: Patchy air space opacities, more in RUL and small b/l effusions Nutrition: Soft diet when off BiPAP Impression: Septic shock sec to perforated gall bladder s/p repair - Off pressors Resp failure requiring intubation, extubated 06/13 Hypoxic and hypercapnic resp failure requiring NIPPV Anasarca Severe thrombocytopenia Leucocytosis, worsening today Anemia Plan: 1.Neuro: No issues with mentation. No delirium. Will change Fentanyl to q 4 hrs for optimal pain control. Aspiration precautions. 2.Resp: Still continues to have tachypnea, no wheeze. Has been requiring increase FiO2 and NIPPV. Will transition to vapotherm and titrate FiO2 as toelrated. c/w nebs q 4hrs prn. No significant secretions. Optimal pain control to prevent splinting and atelectasis 3.CVS: Hemodynamically stable, off pressors. Tachycardic-/ sec to pain. H/o A.fib, Xarelto at home. Changed to Fondaparinoux sec to concern with thrombocytopenia ? HIT. 4. ID: Sepsis sec to perforated gall bladder. Improving. Lactate and acidosis resolved. Off pressors. Having serous discharge through VIVIAN drain. Leucocytosis worsening, no fever. On Zosyn, Cx negative to date. Will rpt septic w/u if not improving/spikes fever 5. Haem: Thrombocytopenia- Worsening- HIT versus sec to sepsis and bone marrow supression. No active bleeding. Abd sites with no oozing. Will monitor closely. On Fondaparinoux given risk for blood clots. H&H stable. 6. GI: Will start liquid diet and advance as tolerated. LFTs elevated sec to biliary sepsis, will rpt today. Surgery f/u noted. 7. Renal: UO stable. ARF resolved. No electrolyte abnormalities. Receiving Lasix bid for 3rd spacing. Anasarca+, will order albumin. 8. Musculoskeletal: Pt not strong enough to get out of bed. Will change to cardiac chair. PT when able to 9. Psycho/social: at bedside. Updated Mckeon catheter need for hemodynamic monitoring IV access: Rt IJ, site looks good Full code, discussed with family regarding advanced directives, no conclusion reached Critical Care Time: 50 min
[2018-06-14] MEDS ORDERED: Artificial Tear OPHTH.OINT* 3.5 GM BOTH EYES PRN (10:13)
[2018-06-14] MEDS ORDERED: Albumin Human 5%* 12.5 GM/250 ML BTL IV ONE (10:30)
[2018-06-14] MEDS: Potassium Chloride LIQUID* 20 MEQ PACKET PO SCH (10:40)
[2018-06-14] MEDS: ZOSYN 3.375 GM Q8H per EXTENDED INFUSION IVPB SCH ×6 (10:40→23:53)
[2018-06-14 11:01] LABS: Albumin/Globulin Ratio 0.9 (1-3); Globulin 2.3 g/dL (2-4); Indirect Bilirubin 0.5 mg/dL (0.3-1.0); Total Bilirubin 1.6 mg/dL (0.2-1.0); Total Protein 4.3 g/dL (6.4-8.9)
[2018-06-14] MEDS: Fondaparinux* 2.5 MG/0.5 ML SYRINGE SUBCUT SCH (13:45)
[2018-06-15] MEDS: Albuterol/Ipratropium NEB.SOL* Albuterol 2.5 MG/Ipratropium 0.5 MG 3 ML INH SCH ×4 (00:42→20:42)
[2018-06-15] MEDS: fentaNYL* 50 MCG/ML 2 ML VIAL (100 MCG VIAL) IV SLOW PU PRN ×4 (02:11→14:07)
[2018-06-15] MEDS: Artificial Tears* 15 ML BTL BOTH EYES PRN (02:11)
[2018-06-15] MEDS: oxyCODONE ORAL.SOLN* 5 MG/5 ML UDC PO PRN ×2 (02:11→20:16)
[2018-06-15 06:08] LABS: Hematocrit 27 % (33-41); Hemoglobin 8.7 g/dL (12.0-16.0); Mean Corpuscular HGB Conc 33 g/dL (31-36); Mean Corpuscular Hemoglobin 35 pg (27-31); Mean Corpuscular Volume 108 fL (80-97); Platelet Count 40 10^3/uL (150-450); Red Blood Count 2.48 10^6 /uL (3.70-4.87); Red Cell Distribution Width 21 % (10.5-15); White Blood Count 11.2 10^3/uL (3.5-10.8)
[2018-06-15 06:24] LABS: Albumin 2.1 g/dL (3.2-5.2); BUN/Creatinine Ratio 25.5 (8-20); Calcium 8.3 mg/dL (8.6-10.3); EGFR African American 143.8 (>60); EGFR Non-African American 118.9 (>60); Globulin 2.1 g/dL (2-4); Potassium 3.9 mmol/L (3.5-5.0); Total Bilirubin 1.4 mg/dL (0.2-1.0); Total Protein 4.2 g/dL (6.4-8.9)
[2018-06-15 06:36] LABS: Immature Granulocytes 1 % (0-9); Lymphocytes % 11 %; Monocytes % 2 %; Myelocytes % 1 % (0-1); Neutrophil % 84 %; Nucleated Red Blood Cells/100 1 (0-0); Variant Lymph % 2 % (0-6)
[2018-06-15 06:38] LABS: ABS Neutrophils 9.52 10^3/ul (1.5-7.7)
--- NOTE | 2018-06-15 08:40 | PN ---
Progress Note - Progress Note Date of Service: 06/15/18 - Progress note Note: Pt seen and examined at bedside. Pt speaks in very low voice. Nods yes or no to questions. Vitals, labs, meds reviewed, plan of care discussed with bedside RN Pt is 72 yo F with a past medical history of morbid obesity, asthma/COPD, chronic hypoxemic respiratory failure on home O2, steroid dependance, МАРИНА on nightly CPAP, atrial fibrillation on Xarelto, hypertension, small cell lung cancer diagnosed in 2017 status post chemotherapy and radiation completed in March 2018, recent compression fracture, chronic pain on long-term opiates being managed in the ICU for septic shock from perforated gall bladder s/p repair and requiring intubation and mechanical ventilation 06/09: Intubated in the ICU due to increased WOB of breathing in the setting of septic shock; s/p ex-lap with finding of gall bladder perforation, abd left open 06/10- 06/11: Remained intubated/mechanically ventilated on fentanyl and vasopressin/NE 06/11: Taken to the OR for abd wound closure. Procedure was grossly uneventful 06/12: Patient off sedation (propofol) and analgesia(fentanyl) 06/13: Patient extubated. 06/14: Was tachycardia and tachypneic last night, was placed with BiPAP with improvement. Is requiring 100% FiO2. Off pressors. 06/15: Requiring high flow, tolerated BiPAP last night. Afebrile, oozing from IV sites and sero-sanguinous output from VIVIAN drain. Active Medications Generic Name Dose Route Start Last Admin Trade Name Freq PRN Reason Stop Dose Admin Acetaminophen 975 mg 06/12/18 15:00 06/14/18 22:29 Tylenol Tab* PO 975 mg Q8H VERNON Administration Albuterol/Ipratropium 1 neb 06/10/18 13:00 06/15/18 07:29 Duoneb (Albuterol 2.5 Mg/Ipratropium 0.5 Mg) INH 1 neb [id number] AWAKE VERNON Administration Famotidine 20 mg 06/13/18 21:00 06/14/18 22:05 Pepcid Susp* J TUBE 20 mg BID VERNON Administration Fentanyl Citrate 25 mcg 06/14/18 10:13 06/15/18 06:04 Fentanyl* IV SLOW PU 25 mcg Q4H PRN Administration PAIN Fondaparinux 2.5 mg 06/12/18 12:00 06/14/18 13:45 Arixtra* SUBCUT Not Given DAILY@1200 VERNON Furosemide 20 mg 06/12/18 16:00 06/14/18 20:44 Lasix Iv* IV 20 mg BID VERNON Administration Piperacillin Sod/Tazobactam 100 mls @ 25 mls/hr 06/09/18 00:00 06/14/18 23:53 Sod 3.375 gm/ Sodium Chloride IVPB 25 mls/hr Q8H VERNON Administration Albumin Human 25 gm in 100 mls @ 0 mls/hr 06/15/18 09:00 Albumin Human 25%* IV 06/15/18 09:01 ED ONCE ONE Per Protocol Oxycodone HCl 5 mg 06/12/18 14:13 06/15/18 02:11 Oxycodone Oral.Soln* PO 5 mg Q6H PRN Administration PAIN Pharmacy Consult 1 note 06/08/18 18:00 Zosyn Per Pharmacy* FOLLOW UP .ZOSYN PER PHARMACY VERNON Polyvinyl Alcohol 1 drop 06/14/18 12:10 06/15/18 02:11 Polyvinyl Alcohol 1.4% Opth* BOTH EYES 1 drop Q4H PRN Administration DRY EYE Potassium Chloride 20 meq 06/12/18 11:00 06/14/18 10:40 Klor-Con Liquid* PO 20 meq DAILY VERNON Administration Vital Signs Temp Pulse Resp BP Pulse Ox 97.2 F 99 18 111/71 99 06/15/18 03:52 06/15/18 07:30 06/15/18 07:30 06/15/18 06:00 06/15/18 07:30 O/E: Pt in bed in NAD HEENT: PERRLA, mucus membranes moist Lungs: Diminished air entry b/l, no wheeze CVS: S1, S2+, irregular Abd: Soft, BS+ Ext: Normal ROM, anasarca+ Neuro: Alert, awake, no focal deficits Laboratory Results - last 24 hr 06/14/18 06/15/18 06/15/18 05:05 05:50 05:50 WBC 11.2 H RBC 2.48 L Hgb 8.7 L Hct 27 L MCV 108 H MCH 35 H MCHC 33 RDW 21 H Plt Count 40 L MPV 12.0 H Neut % (Auto) Not Reportable Lymph % (Auto) Not Reportable Barron % (Auto) Not Reportable Eos % (Auto) Not Reportable Baso % (Auto) Not Reportable Absolute Neuts (auto) Not Reportable Absolute Lymphs (auto) Not Reportable Absolute Monos (auto) Not Reportable Absolute Eos (auto) Not Reportable Absolute Basos (auto) Not Reportable Absolute Nucleated RBC Not Reportable Immature Gran % 1 Neutrophils % 84 Lymphocytes % 11 Reactive Lymphs % 2 Monocytes % 2 Myelocytes % 1 Nucleated RBC % Not Reportable Abs Neuts (Manual) 9.52 H Abs Lymphs (Manual) 1.46 Abs Monocytes (Manual) 0.22 Nucleated RBCs/100 WBC 1 H Normal RBC Morphology Not Reportable Anisocytosis 1+ Macrocytosis 1+ Sodium 142 144 Potassium 4.7 D 3.9 Chloride 110 112 H Carbon Dioxide 24 27 Anion Gap 8 5 BUN 11 13 Creatinine 0.48 L 0.51 Est GFR ( Amer) 154.3 143.8 Est GFR (Non-Af Amer) 127.5 118.9 BUN/Creatinine Ratio 22.9 H 25.5 H Glucose 79 97 Calcium 8.5 L 8.3 L Phosphorus 3.7 Magnesium 2.0 Total Bilirubin 1.60 H 1.40 H Direct Bilirubin 1.10 H Indirect Bilirubin 0.5 AST 37 68 H ALT 24 36 Alkaline Phosphatase 580 H 745 H Total Protein 4.3 L 4.2 L Albumin 2.0 L 2.1 L Globulin 2.3 2.1 Albumin/Globulin Ratio 0.9 L 1.0 Impression: Septic shock sec to perforated gall bladder s/p repair - Off pressors Resp failure requiring intubation, extubated 06/13 Hypoxic and hypercapnic resp failure requiring NIPPV Anasarca Severe thrombocytopenia Leucocytosis, worsening today Anemia Plan: 1.Neuro: No issues with mentation. Will c/w Fentanyl to q 4 hrs for optimal pain control. Aspiration precautions. 2.Resp: Still continues to have tachypnea, no wheeze. Has been requiring high flow and NIPPV. Will transition to vapotherm and titrate FiO2 as tolerated. c/w nebs q 4hrs prn. No significant secretions. Optimal pain control to prevent splinting and atelectasis 3.CVS: Hemodynamically stable, off pressors. Tachycardic-/ sec to pain. H/o A.fib, Xarelto at home. Changed to Fondaparinoux sec to concern with thrombocytopenia ? HIT. Holding anticoagulation given low platelets and concern with bleeding. 4. ID: Sepsis sec to perforated gall bladder. Improving. Lactate and acidosis resolved. Off pressors. Having serous discharge through VIVIAN drain. Leucocytosis worsening, no fever. On Zosyn, Cx negative to date. Will rpt septic w/u if not improving/spikes fever 5. Haem: Thrombocytopenia- Still low however stable- HIT versus sec to sepsis and bone marrow suppression. No active bleeding. Abd sites without significant oozing. Will monitor closely. Will hold Fondaparinoux given risk for bleeding. H &H stable. 6. GI: Will start liquid diet and advance as tolerated. LFTs elevated sec to biliary sepsis, will f/u. Mild tenderness at incision site. T.bili trending down. 7. Renal: UO stable. ARF resolved. No electrolyte abnormalities. Receiving Lasix bid for 3rd spacing. Anasarca+, improved from yesterday, will order albumin again today. 8. Musculoskeletal: Pt not strong enough to get out of bed. Will get out of bed with assistance. PT ordered 9. Psycho/social: at bedside. Updated Mckeon catheter need for hemodynamic monitoring IV access: Rt IJ, site looks good Full code, discussed with family regarding advanced directives, no conclusion reached Will monitor in ICU today
[2018-06-15] MEDS ORDERED: Albumin Human 25%* 25 GM/100 ML BTL IV ONE (09:00)
[2018-06-15] MEDS: Acetaminophen TAB* 325 MG PO SCH ×2 (09:42→15:22)
[2018-06-15] MEDS: ZOSYN 3.375 GM Q8H per EXTENDED INFUSION IVPB SCH ×4 (09:42→15:57)
[2018-06-15] MEDS: Furosemide IV* 10 MG/ML 2 ML VIAL (20 MG) IV SCH ×2 (09:55→20:38)
[2018-06-15] MEDS: Famotidine SUSP ORALSYR 8 MG/ML J TUBE SCH ×2 (09:55→20:33)
[2018-06-15] MEDS: Potassium Chloride LIQUID* 20 MEQ PACKET PO SCH (09:56)
[2018-06-15] MEDS: Fondaparinux* 2.5 MG/0.5 ML SYRINGE SUBCUT SCH (11:00)
--- NOTE | 2018-06-15 11:20 | PN ---
Progress Note - Progress Note Date of Service: 06/15/18 SOAP: Subjective: Pt seen and examined. off cpap, nods head, no voice, passed swallow eval. family at bedside Objective: Temp Pulse Resp BP Pulse Ox 98.1 F 98 23 129/70 98 06/15/18 08:00 06/15/18 10:30 06/15/18 10:30 06/15/18 10:30 06/15/18 10:30 Intake & Output 06/14/18 06/15/18 06/15/18 22:59 06:59 14:59 Intake Total 336 416 Output Total 635 299 125 Balance -299 117 -125 Weight 248 lb 10.903 oz alert abdo: soft/ obesee/ tender w/o peritonitis VIVIAN: bilious vac dressing intact labs noted wbc down Assessment: POD 6/4, some improvement overall bile leak Plan: PO intake d/c ngt and place flexiflw if cannot manage PO abx oob
[2018-06-15] MEDS: Melatonin 3 MG TAB PO PRN (20:33)
[2018-06-15] MEDS: Acetaminophen ADULT LIQ* 650 MG/20.3 ML UDC PO SCH (22:49)
[2018-06-16] MEDS: ZOSYN 3.375 GM Q8H per EXTENDED INFUSION IVPB SCH ×6 (00:15→16:03)
[2018-06-16] MEDS: Albuterol/Ipratropium NEB.SOL* Albuterol 2.5 MG/Ipratropium 0.5 MG 3 ML INH SCH ×6 (01:28→23:18)
[2018-06-16] MEDS: fentaNYL* 50 MCG/ML 2 ML VIAL (100 MCG VIAL) IV SLOW PU PRN ×3 (03:59→20:49)
[2018-06-16] MEDS: Acetaminophen ADULT LIQ* 650 MG/20.3 ML UDC PO SCH ×3 (05:31→20:54)
[2018-06-16] MEDS: Potassium Chloride LIQUID* 20 MEQ PACKET PO SCH (08:17)
[2018-06-16] MEDS: Furosemide IV* 10 MG/ML 2 ML VIAL (20 MG) IV SCH ×2 (08:17→20:49)
[2018-06-16] MEDS: Famotidine SUSP ORALSYR 8 MG/ML J TUBE SCH ×2 (08:18→20:52)
--- NOTE | 2018-06-16 10:45 | PN ---
Progress Note - Progress Note Date of Service: 06/16/18 SOAP: Subjective: Events of weekend noted She remains extubated but is weak and non-verbal Objective: Temp Pulse Resp BP Pulse Ox 96 F 82 25 107/70 99 06/16/18 08:00 06/16/18 10:00 06/16/18 10:00 06/16/18 10:00 06/16/18 10:00 Intake & Output 06/14/18 06/15/18 06/16/18 06/17/18 06:59 06:59 06:59 06:59 Intake Total 1583 1196.5 908.7 313 Output Total 1921 1289 1735 295 Balance -338 -92.5 -826.3 18 Weight 255 lb 4.725 oz 248 lb 10.903 oz 245 lb 5.992 oz Intake: IV Fluids 367 104.5 160.7 ABX - ZOSYN 56.7 KPhos 270 NS (0.9%) 97 104.5 104 IVPB 916 325 319 ABX - ZOSYN 328 325 319 Magnesium 165 Potassium 423 Medicated IV 17 CC - Dexmedetomidine/ 8 Precedex CC - Norepinephrine/ 9 Levophed Oral 150 0 Tube Feeding 153 294 124 Tube Feeding Flush Amount 130 220 Albumin 253 253 NG Tube Irrigate Amount 155 60 Output: VIVIAN #1 48 60 65 0 Urine 45 Mckeon 1823 1184 1670 295 Estimated Blood Loss 0 Tube Feeding Residual 50 0 Amount Wasted Other: Date of Last Bowel 06/14/18 06/15/18 Movement # Bowel Movements 1 1 1 0 Estimated Stool Amount Large Large Small PEX: Awake-alert with eyes open and weak, non-verbal Abd is soft and distended. Bowel sounds present but decreased throughout. Wound vac in place. VIVIAN with small amount of bilious fluid in bulb. Labs 06/15 reviewed Assessment: S/P exlap for perforated gallbladder with drainage COPD-extubated Malnutrition Plan: IV abx Will discuss with Dr. Kohli regarding nutrition-hope to restart tube feeds Wound Care VIVIAN drain
[2018-06-16] MEDS: Fondaparinux* 2.5 MG/0.5 ML SYRINGE SUBCUT SCH (11:59)
--- NOTE | 2018-06-16 12:44 | PN ---
Date of Service: 06/16/18 Critical Care Services: Had an episode of O2 desaturation this Am, which resolved spontaneously. Patient is very lethargic and responds poorly to verbal commands. Vital Signs: Temp Pulse Resp BP SpO2 FiO2 96.3 F 93 32 96/59 96 80 Physical Exam: Gen:Eyes open but does not respond to verbal commands HEENT:OP clear. No facial assymetry Lungs:Decreased BS on right side Abdomen:obese Extremities:2+ edema Neuro: moves only in response to deep pain. Fluid Balance (Past 24 Hours): 06/16/18 06:59 Intake Total 908.7 Output Total 1735 Balance -826.3 Weight 245 lb 5.992 oz Intake: IV Fluids 160.7 ABX - ZOSYN 56.7 KPhos NS (0.9%) 104 IVPB 319 ABX - ZOSYN 319 Magnesium Potassium Medicated IV Oral 150 Tube Feeding 124 Tube Feeding Flush Amount Albumin NG Tube Irrigate Amount 155 Output: VIVIAN #1 65 Urine Mckeon 1670 Estimated Blood Loss Tube Feeding Residual Amount Wasted Other: Date of Last Bowel 06/15/18 Movement # Bowel Movements 1 Estimated Stool Amount Small Labs: None today Studies: CXR: Infiltrate right base and volume loss right hemothorax Nutrition: oral diet - intake poor Impression: Patient appears debilitated, and the problem with O2 desaturation is probably from volume loss in right lung due to retained secretions. The prognosis is poor , especially for regaining independent function. Plan: Patient has been placed on BiPAP, with improvement in O2 saturation. I spoke with about end-of-life decisions, and after speaking with his sons, he has decided that patient should not be intubated. Critical Care Time: 40 minutes
[2018-06-16] MEDS: oxyCODONE ORAL.SOLN* 5 MG/5 ML UDC PO PRN (17:54)
[2018-06-16] MEDS: Melatonin 3 MG TAB PO PRN (20:51)
[2018-06-17] MEDS: ZOSYN 3.375 GM Q8H per EXTENDED INFUSION IVPB SCH ×4 (00:53→08:40)
[2018-06-17] MEDS: Albuterol/Ipratropium NEB.SOL* Albuterol 2.5 MG/Ipratropium 0.5 MG 3 ML INH SCH ×6 (03:12→23:24)
[2018-06-17] MEDS: fentaNYL* 50 MCG/ML 2 ML VIAL (100 MCG VIAL) IV SLOW PU PRN ×3 (03:39→16:57)
[2018-06-17] MEDS: Acetaminophen ADULT LIQ* 650 MG/20.3 ML UDC PO SCH ×3 (05:46→22:10)
[2018-06-17 08:13] LABS: GPIIb/IIIa (Cell-1) Negative; GPIIb/IIIa (Cell-2) Negative; GPIV Negative; GPIa/IIa (Cell-1) Negative; GPIa/IIa (Cell-2) Negative; GPIb/IX Negative; Platelet Count x 10(9)/L? 55
[2018-06-17] MEDS: Famotidine SUSP ORALSYR 8 MG/ML J TUBE SCH ×2 (08:44→20:33)
[2018-06-17] MEDS: Furosemide IV* 10 MG/ML 2 ML VIAL (20 MG) IV SCH ×2 (08:44→20:35)
[2018-06-17] MEDS: Potassium Chloride LIQUID* 20 MEQ PACKET PO SCH (08:44)
[2018-06-17] MEDS: Fondaparinux* 2.5 MG/0.5 ML SYRINGE SUBCUT SCH (12:10)
--- NOTE | 2018-06-17 12:55 | PN ---
Progress Note - Progress Note Date of Service: 06/17/18 SOAP: Subjective: She is more alert today-responding to questions BM this morning Objective: Temp Pulse Resp BP Pulse Ox 98.3 F 88 20 107/60 99 06/17/18 04:00 06/17/18 11:21 06/17/18 11:21 06/17/18 10:30 06/17/18 11:21 Intake & Output 06/15/18 06/16/18 06/17/18 06/18/18 06:59 06:59 06:59 06:59 Intake Total 1196.5 908.7 1045 Output Total 1289 1735 1338 75 Balance -92.5 -826.3 -293 -75 Weight 248 lb 10.903 oz 245 lb 5.992 oz 247 lb 5.738 oz Intake: IV Fluids 104.5 160.7 306 ABX - ZOSYN 56.7 250 NS (0.9%) 104.5 104 56 IVPB 325 319 100 ABX - ZOSYN 325 319 100 Oral 150 0 Tube Feeding 294 124 226 Tube Feeding Flush Amount 220 100 Albumin 253 253 NG Tube Irrigate Amount 155 60 Output: VIVIAN #1 60 65 43 Wound Vac 0 Urine 45 70 Mckeon 1184 1670 1225 75 Estimated Blood Loss 0 Tube Feeding Residual 0 Amount Wasted Other: Date of Last Bowel 06/15/18 06/16/18 Movement # Bowel Movements 1 1 1 Estimated Stool Amount Large Small Large PEX: Comfortable Abd is soft and distended. Few bowel sounds present. VIVIAN with bilious fluid in bulb WOund vac in place Assessment: S/P exlap for peritonitis, perforated gallbladder COPD Ileus Plan: Advance tube feeds as tolerated D/C IC abx VIVIAN drainage Check labs in AM All discussed with Dr. Kohli and patient's today.
--- NOTE | 2018-06-17 13:19 | PN ---
Date of Service: 05/20/18 Critical Care Services: Looks a little better today after BIPAP all night. Is more communicative, but still is very weak, and is on high-flow O2. Antibiotics have been d/c'd because all cultures are negative. Dr. Martinez (Oncology) in to see patient and spoke with . Vital Signs: Temp Pulse Resp BP SpO2 FiO2 98.3 F 88 20 107/60 99 80 Physical Exam: Gen:Somnolent but arousable Lungs:COARSE rhonchi both lungs Abdomen: obese Extremities:2-3+ edema Fluid Balance (Past 24 Hours): 06/15/18 06/16/18 06/17/18 06:59 06:59 06:59 Intake Total 1196.5 908.7 1045 Output Total 1289 1735 1338 Balance -92.5 -826.3 -293 Weight 248 lb 245 lb 247 lb Intake: IV Fluids 104.5 160.7 306 ABX - ZOSYN 56.7 250 NS (0.9%) 104.5 104 56 IVPB 325 319 100 ABX - ZOSYN 325 319 100 Oral 150 0 Tube Feeding 294 124 226 Tube Feeding Flush Amount 220 100 Albumin 253 253 NG Tube Irrigate Amount 155 60 Output: VIVIAN #1 60 65 43 Wound Vac 0 Urine 45 70 Mckeon 1184 1670 1225 Estimated Blood Loss 0 Tube Feeding Residual 0 Amount Wasted Other: Date of Last Bowel 06/15/18 06/16/18 Movement # Bowel Movements 1 1 1 Estimated Stool Amount Large Small Large Labs: 06/12/18 11:10 Anti-Platelet Antibody Negative Anti-Plt HLA Class I Ab Negative Anti-Plt GP Ia/IIa Cell1 Negative Anti-Plt GP Ia/IIa Cell2 Negative Anti-Plt GP Ib/IX Negative Anti-Plt GP IIb/IIIa Cell1 Negative Anti-Plt GP IIb/IIIa Cell2 Negative Anti-Plt GP IV Negative Anti-Plt Prov Pt Diag See comment Anti-Platelet IVIg No Anti-Plt Plt Tx 72hrs No Anti-Plt Plt x10(9)/L 55 Platelet Ab Comment See comment Studies: None today Nutrition: tube feedings 20 cc/hr at night Impression: Cinically better today but still has problems with hypoxic respiratory failure, and is probably aspirating mouth secretions. She is receiving tube feedings. Plan: 1. Advance tube feedings to 40 cc/hr (1 kcal/cc). 2. Swallow evaluation 3. Taper nasal O2 when able. 4. BIPAP at night as needed. Critical Care Time: 40 minutes
[2018-06-17] MEDS: oxyCODONE ORAL.SOLN* 5 MG/5 ML UDC PO PRN (22:10)
[2018-06-18] MEDS: fentaNYL* 50 MCG/ML 2 ML VIAL (100 MCG VIAL) IV SLOW PU PRN (00:23)
[2018-06-18] MEDS: Albuterol/Ipratropium NEB.SOL* Albuterol 2.5 MG/Ipratropium 0.5 MG 3 ML INH SCH ×5 (03:30→20:00)
[2018-06-18] MEDS: Acetaminophen ADULT LIQ* 650 MG/20.3 ML UDC PO SCH ×3 (05:31→21:40)
[2018-06-18 06:28] LABS: Hematocrit 27 % (33-41); Hemoglobin 8.3 g/dL (12.0-16.0); Mean Corpuscular HGB Conc 31 g/dL (31-36); Mean Corpuscular Hemoglobin 35 pg (27-31); Mean Corpuscular Volume 112 fL (80-97); Mean Platelet Volume 12.2 fL (7.4-10.4); Platelet Count 59 10^3/uL (150-450); Red Blood Count 2.36 10^6 /uL (3.70-4.87); Red Cell Distribution Width 21 % (10.5-15); White Blood Count 14.1 10^3/uL (3.5-10.8)
[2018-06-18 06:46] LABS: Albumin 2.3 g/dL (3.2-5.2); BUN/Creatinine Ratio 43.5 (8-20); Calcium 8.5 mg/dL (8.6-10.3); EGFR Non-African American 133.9 (>60); Globulin 2.2 g/dL (2-4); Potassium 3.1 mmol/L (3.5-5.0); Total Bilirubin 0.9 mg/dL (0.2-1.0); Total Protein 4.5 g/dL (6.4-8.9)
[2018-06-18] MEDS: Furosemide IV* 10 MG/ML 2 ML VIAL (20 MG) IV SCH (08:34)
[2018-06-18] MEDS: Famotidine SUSP ORALSYR 8 MG/ML J TUBE SCH ×2 (08:35→21:37)
[2018-06-18] MEDS: Potassium Chloride LIQUID* 20 MEQ PACKET PO SCH (08:35)
[2018-06-18] MEDS: oxyCODONE ORAL.SOLN* 5 MG/5 ML UDC PO PRN (11:11)
--- NOTE | 2018-06-18 11:43 | PN ---
Progress Note - Progress Note Date of Service: 06/18/18 SOAP: Subjective: Remains weak but awake and alert No N/V, minimal abdominal incisional pain Had large BM last night Tolerating TF's with minimal residual Objective: Temp Pulse Resp BP Pulse Ox 96.5 F 82 23 116/59 94 06/18/18 07:55 06/18/18 10:30 06/18/18 11:11 06/18/18 10:30 06/18/18 10:30 Intake & Output 06/16/18 06/17/18 06/18/18 06/19/18 06:59 06:59 06:59 06:59 Intake Total 908.7 1045 981.6 0 Output Total 1735 1338 1540 475 Balance -826.3 -293 -558.4 -475 Weight 245 lb 5.992 oz 247 lb 5.738 oz 236 lb 15.951 oz Intake: IV Fluids 160.7 306 192.6 ABX - ZOSYN 56.7 250 192.6 NS (0.9%) 104 56 IVPB 319 100 113 ABX - ZOSYN 319 100 113 Oral 150 0 0 Tube Feeding 124 226 516 0 Tube Feeding Flush Amount 100 Albumin 253 0 NG Tube Irrigate Amount 155 60 160 0 Output: VIVIAN #1 65 43 50 0 Wound Vac 0 Urine 70 Mckeon 1670 1225 1490 475 Estimated Blood Loss 0 0 Tube Feeding Residual 0 0 Amount Wasted Other: Date of Last Bowel 06/15/18 06/16/18 06/16/18 Movement # Bowel Movements 1 1 0 Estimated Stool Amount Small Large Large PEX: Awake, non-verbal but nods head and squeezes hands appropriately to respond to questions Abd is soft and distended. Wound is CDI-wound vac removed. Few bowel sounds present. VIVIAN with small amount of bilious fluid in bulb Laboratory Results - last 24 hr 06/18/18 06/18/18 05:44 05:44 WBC 14.1 H RBC 2.36 L Hgb 8.3 L Hct 27 L MCV 112 H MCH 35 H MCHC 31 RDW 21 H Plt Count 59 L MPV 12.2 H Sodium 147 H Potassium 3.1 L Chloride 111 Carbon Dioxide 32 Anion Gap 4 BUN 20 Creatinine 0.46 L Est GFR ( Amer) 162.0 Est GFR (Non-Af Amer) 133.9 BUN/Creatinine Ratio 43.5 H Glucose 121 H Calcium 8.5 L Total Bilirubin 0.90 AST 51 H ALT 33 Alkaline Phosphatase 1488 H Total Protein 4.5 L Albumin 2.3 L Globulin 2.2 Albumin/Globulin Ratio 1.0 Assessment: S/P exlap for peritonitis, perforated gallbladder COPD Lung cancer Ileus-appears to be improving Elevated alkaline phosphatase, ?? etiology, other LFT's normal Plan: Wound vac d/c'd Advance TF's as tolerated-goal 65 cc/hr Pulmonary toilet VIVIAN drainage Not certain cause of elevated alkaline phosphatase--?? oncologic, will discuss with medical service Care and progress discussed with patient's .
[2018-06-18] MEDS: Fondaparinux* 2.5 MG/0.5 ML SYRINGE SUBCUT SCH (12:16)
[2018-06-18] MEDS: KCL 20 MEQ/100 ML IVPREMIX* 20 MEQ/100 ML BAG IV SCH ×2 (12:18→13:35)
[2018-06-18] MEDS ORDERED: Furosemide IV* 10 MG/ML VIAL (40 MG) IV SCH (13:00)
--- NOTE | 2018-06-18 13:21 | PN ---
Date of Service: 06/18/18 Critical Care Services: More alert today, and responds appropriately to verbal commands. Vital Signs: Temp Pulse Resp BP SpO2 FiO2 97 F 86 22 116/59 95 50 Physical Exam: Gen:Awake and comfortable Lungs: Coarse rhonchi both sides Cardiac: Reg rhythm Extremities:2+ edema. No cyanosis. Fluid Balance (Past 24 Hours): 06/16/18 06/17/18 06/18/18 06:59 06:59 06:59 Intake Total 908.7 1045 981.6 Output Total 1735 1338 1540 Balance -826.3 -293 -558.4 Weight 245 lb 247 lb 236 lb Intake: IV Fluids 160.7 306 192.6 ABX - ZOSYN 56.7 250 192.6 NS (0.9%) 104 56 IVPB 319 100 113 ABX - ZOSYN 319 100 113 Oral 150 0 Tube Feeding 124 226 516 Tube Feeding Flush Amount 100 Albumin 253 NG Tube Irrigate Amount 155 60 160 Output: VIVIAN #1 65 43 50 Wound Vac 0 Urine 70 Mckeon 1670 1225 1490 Estimated Blood Loss 0 Tube Feeding Residual 0 Amount Wasted Other: Date of Last Bowel 06/15/18 06/16/18 Movement # Bowel Movements 1 1 Estimated Stool Amount Small Large Labs: Laboratory Results - last 24 hr 06/18/18 06/18/18 05:44 05:44 WBC 14.1 H RBC 2.36 L Hgb 8.3 L Hct 27 L MCV 112 H MCH 35 H MCHC 31 RDW 21 H Plt Count 59 L Sodium 147 H Potassium 3.1 L Chloride 111 Carbon Dioxide 32 Anion Gap 4 BUN 20 Creatinine 0.46 L Glucose 121 H Calcium 8.5 L Total Bilirubin 0.90 AST 51 H ALT 33 Alkaline Phosphatase 1488 Total Protein 4.5 L Albumin 2.3 Globulin 2.2 Albumin/Globulin Ratio 1.0 Studies: None today Nutrition: Tube feedings with jevity 1.2 at 40 cc/hr Impression: Respiratory status has improved, although I don't know how long this improvement will last. The source of markedly elevated AlkPhos is unclear - probably biliary tree (although no similar increase in bilirubin). Plan: 1. Radionucleide scan of biliary tree if alk phos higher tomorrow. 2. Continue diuresis and vigorous NT suctioning to facilitate removal of secretions. Critical Care Time: 35 minutes
[2018-06-18] MEDS: Nystatin TOP POWDER* 15 GM BTL TOPICAL SCH ×2 (13:49→21:37)
[2018-06-19] MEDS: Albuterol/Ipratropium NEB.SOL* Albuterol 2.5 MG/Ipratropium 0.5 MG 3 ML INH SCH ×4 (01:24→19:40)
[2018-06-19] MEDS ORDERED: Lactated Ringers 1000 ML Bag* 1,000 ML IV SCH ×3 (02:00→06:00)
[2018-06-19] MEDS ORDERED: Norepinephrine 16MCG/ML IVPRE* 4,000 MCG/250 ML BAG IV ONE (04:31)
[2018-06-19] MEDS: Norepinephrine 16MCG/ML IVPRE* 4,000 MCG/250 ML BAG IV SCH ×2 (04:45→08:37)
--- NOTE | 2018-06-19 05:04 | PN ---
Hospitalist Progress Note Date of Service: 06/19/18 HOSPITALIST ADDENDUM Called by RN earlier because patient was hypotensive. Initially responded to IVF bolus, but later became hypotensive again. Will resume Levophed and monitor.
[2018-06-19] MEDS: Acetaminophen ADULT LIQ* 650 MG/20.3 ML UDC PO SCH ×3 (06:05→21:23)
[2018-06-19 06:50] LABS: Albumin 2.2 g/dL (3.2-5.2); BUN/Creatinine Ratio 44.2 (8-20); Calcium 8.5 mg/dL (8.6-10.3); EGFR African American 175.1 (>60); EGFR Non-African American 144.7 (>60); Globulin 2.1 g/dL (2-4); Potassium 3.3 mmol/L (3.5-5.0); Total Bilirubin 0.8 mg/dL (0.2-1.0); Total Protein 4.3 g/dL (6.4-8.9)
[2018-06-19] MEDS: Nystatin TOP POWDER* 15 GM BTL TOPICAL SCH ×2 (09:00→21:24)
[2018-06-19] MEDS: Famotidine SUSP ORALSYR 8 MG/ML J TUBE SCH ×2 (09:40→21:23)
[2018-06-19] MEDS: Potassium Chloride LIQUID* 20 MEQ PACKET PO SCH (09:40)
[2018-06-19] MEDS: Lactobacillus Acidophilus* 1 TAB PO SCH ×2 (11:40→21:24)
[2018-06-19] MEDS: Fondaparinux* 2.5 MG/0.5 ML SYRINGE SUBCUT SCH (11:40)
[2018-06-19] MEDS: oxyCODONE ORAL.SOLN* 5 MG/5 ML UDC PO PRN ×2 (11:40→18:18)
--- NOTE | 2018-06-19 11:47 | PN ---
Progress Note - Progress Note Date of Service: 06/19/18 SOAP: Subjective: Events of last night noted Restarted on Levophed for drop in BP but has responded to IVF and being weaned off. Awake and alert. She is having bowel movements. Objective: Temp Pulse Resp BP Pulse Ox 96.7 F 92 24 111/56 97 06/19/18 08:00 06/19/18 11:15 06/19/18 11:15 06/19/18 11:15 06/19/18 11:15 Intake & Output 06/17/18 06/18/18 06/19/18 06/20/18 06:59 06:59 06:59 06:59 Intake Total 1045 981.6 2086 100 Output Total 1338 1540 1595 165 Balance -293 -558.4 491 -65 Weight 247 lb 5.738 oz 236 lb 15.951 oz 239 lb 3.225 oz Intake: IV Fluids 306 192.6 1340 ABX - ZOSYN 250 192.6 LR 1140 NS (0.9%) 56 kcl 200 IVPB 100 113 ABX - ZOSYN 100 113 Medicated IV 21 CC - Norepinephrine/ 21 Levophed Oral 0 0 Tube Feeding 226 516 725 Tube Feeding Flush Amount 100 100 Albumin 253 0 NG Tube Irrigate Amount 60 160 0 Output: VIVIAN #1 43 50 20 Wound Vac 0 Urine 70 Mckeon 1225 1490 1575 165 Estimated Blood Loss 0 0 Tube Feeding Residual 0 0 Amount Wasted Other: Date of Last Bowel 06/16/18 06/16/18 Movement # Bowel Movements 1 0 Estimated Stool Amount Large Medium PEX: Comfortable-mental status unchanged from yesterday, awake and alert. Abd is soft and distended. Few bowel sounds are present. Incision CDI. VIVIAN in place with bilious fluid in bulb. Laboratory Results - last 24 hr 06/19/18 06:00 Sodium 151 H Potassium 3.3 L Chloride 111 Carbon Dioxide 33 H Anion Gap 7 BUN 19 Creatinine 0.43 L Est GFR ( Amer) 175.1 Est GFR (Non-Af Amer) 144.7 BUN/Creatinine Ratio 44.2 H Glucose 94 Calcium 8.5 L Total Bilirubin 0.80 GGT 1086 H AST 46 H ALT 35 Alkaline Phosphatase 1452 H Total Protein 4.3 L Albumin 2.2 L Globulin 2.1 Albumin/Globulin Ratio 1.0 Assessment: S/P exlap for perforated gallbladder, drained. COPD Malnutrition Elevated alkaline phosphatase, normal LFT's ?? etiology. Also, GGTP elevated She is now tolerating TF's Plan: HIDA and US right upper quadrant to evaluate alkaline phosphatase elevation Tube feeds She remains off antibiotics VIVIAN drainage Above discussed with Dr. Kohli
--- NOTE | 2018-06-19 15:51 | PN ---
Date of Service: 06/19/18 Critical Care Services: Alk Phos continues to be elevated, bit HEIDA scan today shows no biliary obstruction. Patient is clinically unchanged - was on levophed for low BP but that occured after increasing the furosemide dose, and it resolved with fluid infusion. Vital Signs: Temp Pulse Resp BP SpO2 FiO2 96.7 F 83 18 84/48 99 60 Physical Exam: Gen:Alert and responds to verbal commands Lungs:Coarse rhonchi in both lungs. Decreaed BS right hemithorax Extremities: 2+ edema (pitting) Fluid Balance (Past 24 Hours): 06/18/18 06/19/18 06:59 06:59 Intake Total 981.6 2086 Output Total 1540 1595 Balance -558.4 491 Weight 236 lb 239 lb Intake: IV Fluids 192.6 1340 ABX - ZOSYN 192.6 LR 1140 NS (0.9%) kcl 200 IVPB 113 ABX - ZOSYN 113 Medicated IV 21 CC - Norepinephrine/ 21 Levophed Oral 0 Tube Feeding 516 725 Tube Feeding Flush Amount Albumin 0 NG Tube Irrigate Amount 160 0 Output: VIVIAN #1 50 20 Wound Vac Urine Mckeon 1490 1575 Estimated Blood Loss 0 Tube Feeding Residual 0 Amount Wasted Other: Date of Last Bowel 06/16/18 Movement # Bowel Movements 0 Estimated Stool Amount Medium Labs: 06/19/18 06:00 Sodium 151 H Potassium 3.3 L Chloride 111 Carbon Dioxide 33 H Anion Gap 7 BUN 19 Creatinine 0.43 L BUN/Creatinine Ratio 44.2 H Glucose 94 Calcium 8.5 L Total Bilirubin 0.80 GGT 1086 H AST 46 H ALT 35 Alkaline Phosphatase 1452 H Total Protein 4.3 L Albumin 2.2 L Globulin 2.1 Albumin/Globulin Ratio 1.0 Studies: HEIDA Scan - as mentioned earlier. Nutrition: Jevity 1.2 at 40 cc/hr Impression: Overall, clinical status unchanged. Elevated alk phos is most likely from gallbladder manipulation. Plan: Continue general supportive care. Cut back on the diuresis. Monitor biliary tract and liver enzymes
[2018-06-19] MEDS: fentaNYL* 50 MCG/ML 2 ML VIAL (100 MCG VIAL) IV SLOW PU PRN (16:45)
[2018-06-20] MEDS: Albuterol/Ipratropium NEB.SOL* Albuterol 2.5 MG/Ipratropium 0.5 MG 3 ML INH SCH ×4 (00:58→19:39)
[2018-06-20] MEDS: Acetaminophen ADULT LIQ* 650 MG/20.3 ML UDC PO SCH ×3 (05:39→20:29)
[2018-06-20 06:03] LABS: Hematocrit 25 % (33-41); Hemoglobin 7.7 g/dL (12.0-16.0); Mean Corpuscular HGB Conc 30 g/dL (31-36); Mean Corpuscular Hemoglobin 36 pg (27-31); Mean Corpuscular Volume 118 fL (80-97); Mean Platelet Volume 10.7 fL (7.4-10.4); Platelet Count 86 10^3/uL (150-450); Red Blood Count 2.14 10^6 /uL (3.70-4.87); Red Cell Distribution Width 21 % (10.5-15); White Blood Count 13.4 10^3/uL (3.5-10.8)
[2018-06-20 06:25] LABS: Albumin 2.2 g/dL (3.2-5.2); Calcium 9.1 mg/dL (8.6-10.3); EGFR African American 147.2 (>60); EGFR Non-African American 121.6 (>60); Globulin 2.2 g/dL (2-4); Magnesium 1.6 mg/dL (1.9-2.7); Phosphorus 3.4 mg/dL (2.5-5.0); Potassium 3.8 mmol/L (3.5-5.0); Total Bilirubin 0.7 mg/dL (0.2-1.0); Total Protein 4.4 g/dL (6.4-8.9)
[2018-06-20] MEDS: Famotidine SUSP ORALSYR 8 MG/ML J TUBE SCH ×2 (09:22→20:29)
[2018-06-20] MEDS: Potassium Chloride LIQUID* 20 MEQ PACKET PO SCH (09:22)
[2018-06-20] MEDS: Lactobacillus Acidophilus* 1 TAB PO SCH ×2 (09:22→20:29)
[2018-06-20] MEDS: Nystatin TOP POWDER* 15 GM BTL TOPICAL SCH ×2 (09:23→20:30)
--- NOTE | 2018-06-20 10:33 | PN ---
Progress Note - Progress Note Date of Service: 06/20/18 SOAP: Subjective: Awake and alert but remains nonverbal-nods head Tolerating tube feeds without residual, having BM's HIDA reviewed Objective: Temp Pulse Resp BP Pulse Ox 97.8 F 90 18 95/65 100 06/20/18 04:00 06/20/18 07:23 06/20/18 07:23 06/20/18 06:00 06/20/18 07:23 Intake & Output 06/18/18 06/19/18 06/20/18 06/21/18 06:59 06:59 06:59 06:59 Intake Total 981.6 2086 4354 Output Total 1540 1595 796 75 Balance -558.4 491 3558 -75 Weight 236 lb 15.951 oz 239 lb 3.225 oz 239 lb 3.225 oz Intake: IV Fluids 192.6 1340 3094 ABX - ZOSYN 192.6 LR 1140 3094 kcl 200 IVPB 113 ABX - ZOSYN 113 Medicated IV 21 53 CC - Norepinephrine/ 21 53 Levophed Oral 0 0 Tube Feeding 516 725 533 Tube Feeding Flush Amount 674 Albumin 0 0 NG Tube Irrigate Amount 160 0 0 Output: VIVIAN #1 50 20 85 Mckeon 1490 1575 711 75 Estimated Blood Loss 0 Tube Feeding Residual 0 Amount Wasted Other: Date of Last Bowel 06/16/18 06/19/18 Movement # Bowel Movements 0 1 Estimated Stool Amount Medium Medium PEX: Comfortable Abd is soft and slightly distended. Bowel sounds present. Wound is CDI VIVIAN with bilious fluid in bulb Laboratory Results - last 24 hr 06/20/18 06/20/18 05:46 05:46 WBC 13.4 H RBC 2.14 L Hgb 7.7 L Hct 25 L MCV 118 H MCH 36 H MCHC 30 L RDW 21 H Plt Count 86 L MPV 10.7 H Sodium 148 H Potassium 3.8 Chloride 112 H Carbon Dioxide 33 H Anion Gap 3 BUN 19 Creatinine 0.50 L Est GFR ( Amer) 147.2 Est GFR (Non-Af Amer) 121.6 BUN/Creatinine Ratio 38.0 H Glucose 120 H Calcium 9.1 Phosphorus 3.4 Magnesium 1.6 L Total Bilirubin 0.70 AST 47 H ALT 36 Alkaline Phosphatase 1330 H Total Protein 4.4 L Albumin 2.2 L Globulin 2.2 Albumin/Globulin Ratio 1.0 HIDA reviewed-no biliary obstruction with rapid flow of tracer into small intestine or pooling of tracer in right upper quadrant to suggest biloma. Assessment: S/P exlap for perforated gallbladder with drainage-persistent small amount of bilious fluid in VIVIAN drain-consistent with cystic duct leak. No pooling of tracer to suggest biloma and no biliary obstruction. LFT's normal and alkaline phosphatase trending downward. Malnutrition COPD Lung cancer Plan: Discussed with Dr. Kohli-will proceed with CT scan of abd and pelvis She remains off antibiotics Continue and advance tube feeds VIVIAN drainage
[2018-06-20] MEDS: oxyCODONE ORAL.SOLN* 5 MG/5 ML UDC PO PRN ×2 (10:47→20:30)
[2018-06-20] MEDS ORDERED: Folic Acid IV* 1 MG/0.2 ML SYRINGE IV SCH ×2 (12:00→16:00)
[2018-06-20] MEDS ORDERED: Folic Acid IV* 1 MG, Multiple Vitamin IV ADULT* 10 ML in D5NS 0.9% 1000 ML BAG* 1,000 ML IV SCH ×4 (12:30)
[2018-06-20] MEDS ORDERED: Folic Acid IV* 1 MG, Multiple Vitamin IV ADULT* 10 ML in NS 0.9% 1000 ML** 1,000 ML IV SCH ×4 (12:30)
[2018-06-20] MEDS: Fondaparinux* 2.5 MG/0.5 ML SYRINGE SUBCUT SCH (13:31)
[2018-06-20] MEDS: Lactated Ringers 1000 ML Bag* 1,000 ML IV SCH (13:32)
--- NOTE | 2018-06-20 15:38 | PN ---
Date of Service: 06/20/18 Critical Care Services: Remains somnolent, and continues to have episodes of O2 desaturation, which requires BIPAP. Has been afebrile, with a mild leukocytosis. Vital Signs: Temp Pulse Resp BP SpO2 FiO2 97.8 F 99 24 95/65 96 100 Physical Exam: Gen:Somnolent but arousable HEENT:BIPAP mask on Lungs: Coarse rhonchi on both sides Abdomen: VIVIAN drain with about 5 cc of dark, greenish fluid. Extremities: 2+ edema. No cyanosis Fluid Balance (Past 24 Hours): 06/19/18 06/20/18 06:59 06:59 Intake Total 2086 4354 Output Total 1595 796 Balance 491 3558 Weight 239 lb 239 lb Intake: IV Fluids 1340 3094 ABX - ZOSYN LR 1140 3094 kcl 200 IVPB ABX - ZOSYN Medicated IV 21 53 CC - Norepinephrine/ 21 53 Levophed Oral 0 0 Tube Feeding 725 533 Tube Feeding Flush Amount 674 Albumin 0 0 NG Tube Irrigate Amount 0 0 Output: VIVIAN #1 20 85 Mckeon 1575 711 Estimated Blood Loss 0 Tube Feeding Residual 0 Amount Wasted Other: Date of Last Bowel 06/16/18 06/19/18 Movement # Bowel Movements 0 1 Estimated Stool Amount Medium Medium Labs: Laboratory Results - last 24 hr 06/20/18 06/20/18 05:46 05:46 WBC 13.4 H RBC 2.14 L Hgb 7.7 L Hct 25 L MCV 118 Plt Count 86 Sodium 148 H Potassium 3.8 Chloride 112 H Carbon Dioxide 33 H Anion Gap 3 BUN 19 Creatinine 0.50 L Glucose 120 H Calcium 9.1 Phosphorus 3.4 Magnesium 1.6 Total Bilirubin 0.70 AST 47 H ALT 36 Alkaline Phosphatase 1330 H Total Protein 4.4 L Albumin 2.2 L Globulin 2.2 Albumin/Globulin Ratio 1.0 Studies: None Nutrition: Jevity 1.2 at 40 cc/hr Impression: Although there is nothing active at this time, patient continues to have depressed mental status and to have episodes of hypoxemia. There is no evidence of infection. However, there is a marked macrocytic anemia, which could be folate deficiency. Thiamine deficiency (Wernickes) is also possible, considering poor nutritional status. The alk phos is decreasing, although the source is still a mystery. The edema in this case is mostly due to low albumin, and is difficult of resolve. Attempts at diuresis lead to hypotension. Plan: 1. Folate level, and start IV folate (1 mg daily). 2. Start thiamine at 100 mg IV daily 3. Start multivitamins - add to tube feedings. 4. Surgery service actively following. Prognosis for full recovery continues to be very poor. aware. Critical Care Time: 45 minutes
[2018-06-20] MEDS ORDERED: Thiamine IV* 100 MG in NS 0.9% 50 ML* 50 ML IV SCH (17:00)
[2018-06-20] MEDS: Albuterol 2.5 MG/3 ML NEB.SOL* (0.083%) INH PRN (19:39)
[2018-06-20] MEDS: Thiamine TAB* 100 MG TAB PO SCH (20:29)
[2018-06-20] MEDS: Folic Acid IV* 1 MG in NS 0.9% 50 ML* 50 ML IVPB SCH (20:29)
[2018-06-20] MEDS: fentaNYL* 50 MCG/ML 2 ML VIAL (100 MCG VIAL) IV SLOW PU PRN (20:30)
[2018-06-20] MEDS: Norepinephrine 16MCG/ML IVPRE* 4,000 MCG/250 ML BAG IV SCH (21:03)
[2018-06-20] MEDS: Artificial Tears* 15 ML BTL BOTH EYES PRN (21:32)
[2018-06-20] MEDS: Multivitamins ADULT w/MIN LIQ* 15 ML UDC PO SCH (21:32)
[2018-06-21] MEDS: fentaNYL* 50 MCG/ML 2 ML VIAL (100 MCG VIAL) IV SLOW PU PRN (00:18)
[2018-06-21] MEDS: Albuterol/Ipratropium NEB.SOL* Albuterol 2.5 MG/Ipratropium 0.5 MG 3 ML INH SCH ×4 (01:10→19:05)
[2018-06-21] MEDS: Acetaminophen ADULT LIQ* 650 MG/20.3 ML UDC PO SCH (05:01)
[2018-06-21 05:41] LABS: Hematocrit 23 % (33-41); Mean Corpuscular HGB Conc 31 g/dL (31-36); Mean Corpuscular Hemoglobin 36 pg (27-31); Mean Corpuscular Volume 118 fL (80-97); Mean Platelet Volume 10.7 fL (7.4-10.4); Platelet Count 86 10^3/uL (150-450); Red Blood Count 1.96 10^6 /uL (3.70-4.87); Red Cell Distribution Width 21 % (10.5-15)
[2018-06-21 06:03] LABS: Albumin 2.1 g/dL (3.2-5.2); EGFR African American 147.2 (>60); EGFR Non-African American 121.6 (>60); Globulin 2.1 g/dL (2-4); Indirect Bilirubin 0.3 mg/dL (0.3-1.0); Magnesium 1.6 mg/dL (1.9-2.7); Potassium 3.8 mmol/L (3.5-5.0); Total Bilirubin 0.6 mg/dL (0.2-1.0); Total Protein 4.2 g/dL (6.4-8.9)
[2018-06-21 06:28] LABS: Folate 8.58 ng/mL (>3.99)
[2018-06-21] MEDS: Norepinephrine 16MCG/ML IVPRE* 4,000 MCG/250 ML BAG IV SCH ×2 (07:18→15:52)
[2018-06-21] MEDS: Lactated Ringers 1000 ML Bag* 1,000 ML IV SCH (08:33)
[2018-06-21] MEDS: Potassium Chloride LIQUID* 20 MEQ PACKET PO SCH (08:54)
[2018-06-21] MEDS: Multivitamins ADULT w/MIN LIQ* 15 ML UDC PO SCH (08:54)
[2018-06-21] MEDS: Lactobacillus Acidophilus* 1 TAB PO SCH ×2 (08:54→21:11)
[2018-06-21] MEDS: Famotidine SUSP ORALSYR 8 MG/ML J TUBE SCH ×2 (08:54→21:11)
[2018-06-21] MEDS: Thiamine TAB* 100 MG TAB PO SCH (08:54)
[2018-06-21] MEDS: oxyCODONE ORAL.SOLN* 5 MG/5 ML UDC PO PRN (08:55)
[2018-06-21] MEDS: Folic Acid IV* 1 MG in NS 0.9% 50 ML* 50 ML IVPB SCH (09:48)
--- NOTE | 2018-06-21 09:51 | PN ---
Progress Note - Progress Note Date of Service: 06/21/18 SOAP: Subjective: More lethargic this morning Objective: Temp Pulse Resp BP Pulse Ox 98.2 F 110 25 104/56 100 06/21/18 03:42 06/21/18 08:30 06/21/18 08:55 06/21/18 08:30 06/21/18 08:30 Intake & Output 06/19/18 06/20/18 06/21/18 06/22/18 06:59 06:59 06:59 06:59 Intake Total 2086 4354 3176 Output Total 8995 233 3135 75 Balance 491 3558 2158 -75 Weight 239 lb 3.225 oz 239 lb 3.225 oz 254 lb 13.67 oz Intake: IV Fluids 1340 3094 1663 LR 1140 3094 1663 kcl 200 IVPB 62 folic acid 62 Medicated IV 21 53 231 CC - Norepinephrine/ 21 53 231 Levophed Oral 0 0 Tube Feeding 725 533 860 Tube Feeding Flush Amount 674 360 Albumin 0 0 NG Tube Irrigate Amount 0 0 Output: VIVIAN #1 20 85 30 Mckeon 1575 711 888 75 Estimated Blood Loss 0 Tube Feeding Residual 0 100 Amount Wasted Other: Date of Last Bowel 06/16/18 06/19/18 Movement # Bowel Movements 0 1 Estimated Stool Amount Medium Medium PEX: lethargic but will open eyes and squeeze hand Abd is soft and distended. Wound is CDI. VIVIAN with small amount of bilious fluid in bulb. Laboratory Results - last 24 hr 06/21/18 06/21/18 05:24 05:24 WBC 13.0 H RBC 1.96 L Hgb 7.0 L Hct 23 L MCV 118 H MCH 36 H MCHC 31 RDW 21 H Plt Count 86 L MPV 10.7 H Sodium 149 H Potassium 3.8 Chloride 113 H Carbon Dioxide 35 H Anion Gap 1 L BUN 18 Creatinine 0.50 L Est GFR ( Amer) 147.2 Est GFR (Non-Af Amer) 121.6 BUN/Creatinine Ratio 36.0 H Glucose 122 H Calcium 9.0 Magnesium 1.6 L Total Bilirubin 0.60 Direct Bilirubin 0.30 H Indirect Bilirubin 0.3 AST 38 ALT 35 Alkaline Phosphatase 1138 H Total Protein 4.2 L Albumin 2.1 L Globulin 2.1 Albumin/Globulin Ratio 1.0 Vitamin B12 1381 H Folate 8.58 Assessment: S/P exlap for perforated gallbladder with drainage Lung cancer Malnutrition COPD Obesity Plan: Continue to advance tube feeds VIVIAN drain Off antibiotics Discussed with yesterday-she is a DNI/DNR.
[2018-06-21] MEDS: Nystatin TOP POWDER* 15 GM BTL TOPICAL SCH ×2 (11:42→21:11)
[2018-06-21] MEDS: Fondaparinux* 2.5 MG/0.5 ML SYRINGE SUBCUT SCH (12:23)
--- NOTE | 2018-06-21 17:58 | PN ---
Date of Service: 06/21/18 Critical Care Services: Clinical status unchanged. Patient continues to appear very weak, and requires BIPAP for most of the day and night. No signs of active infection. Vital Signs: Temp Pulse Resp BP SpO2 FiO2 98.5 F 111 22 86/47 88 60 Physical Exam: Gen:Eyes open and responds to verbal commands occasionally. Lungs:diminished BS bilaterally. Cardiac: Reg rhythm Extremities: 2+edema. No cyanosis. Fluid Balance (Past 24 Hours): 06/21/18 06:59 Intake Total 3176 Output Total 1018 Balance 2158 Weight 254 lb Intake: IV Fluids 1663 LR 1663 kcl IVPB 62 folic acid 62 Medicated IV 231 CC - Norepinephrine/ 231 Levophed Oral Tube Feeding 860 Tube Feeding Flush Amount 360 Albumin NG Tube Irrigate Amount NGT Output: VIVIAN #1 30 Mckeon 888 Estimated Blood Loss Tube Feeding Residual 100 Amount Wasted Other: Date of Last Bowel Movement # Bowel Movements Estimated Stool Amount Labs: 06/21/18 06/21/18 05:24 05:24 WBC 13.0 H RBC 1.96 L Hgb 7.0 Hct 23 L MCV 118 MCH 36 H MCHC 31 Plt Count 86 Sodium 149 H Potassium 3.8 Chloride 113 H Carbon Dioxide 35 H Anion Gap 1 L BUN 18 Creatinine 0.50 L Glucose 122 H Calcium 9.0 Magnesium 1.6 Total Bilirubin 0.60 Direct Bilirubin 0.30 H Indirect Bilirubin 0.3 AST 38 ALT 35 Alkaline Phosphatase 1138 Total Protein 4.2 L Albumin 2.1 L Globulin 2.1 Albumin/Globulin Ratio 1.0 Vitamin B12 1381 H Folate 8.58 Studies: CXR: Bilateral pleural effusions Nutrition: Tube feedings - stopped because of high gastric residuals. Impression: 1. Respiratory failure due to weakness and inability to handle mouth secretions. 2. Macrocytic anemia is not due to folate or B12 deficiency. Prognosis is very poor. Plan: 1, D/C IV folate. 2. Palliative care consult Critical Care Time: 40 minutes (including time to evaluate respiratory status off BIPAP).
[2018-06-21] MEDS ORDERED: Magnesium Sulfate 2 GM IV* 2 GM/50 ML BAG IVPB ONE (18:08)
[2018-06-21] MEDS: fentaNYL* 50 MCG/ML 2 ML VIAL (100 MCG VIAL) IV PRN (21:11)
[2018-06-22] MEDS: Albuterol/Ipratropium NEB.SOL* Albuterol 2.5 MG/Ipratropium 0.5 MG 3 ML INH SCH ×4 (01:11→19:16)
[2018-06-22] MEDS: fentaNYL* 50 MCG/ML 2 ML VIAL (100 MCG VIAL) IV PRN ×4 (01:26→13:29)
[2018-06-22] MEDS: Norepinephrine 16MCG/ML IVPRE* 4,000 MCG/250 ML BAG IV SCH (02:49)
[2018-06-22] MEDS: Lactated Ringers 1000 ML Bag* 1,000 ML IV SCH (05:01)
[2018-06-22 05:18] LABS: Hematocrit 22 % (33-41); Hemoglobin 6.9 g/dL (12.0-16.0); Mean Corpuscular HGB Conc 31 g/dL (31-36); Mean Corpuscular Hemoglobin 36 pg (27-31); Mean Corpuscular Volume 117 fL (80-97); Mean Platelet Volume 10.7 fL (7.4-10.4); Platelet Count 85 10^3/uL (150-450); Red Blood Count 1.91 10^6 /uL (3.70-4.87); Red Cell Distribution Width 21 % (10.5-15); White Blood Count 11.9 10^3/uL (3.5-10.8)
[2018-06-22 05:34] LABS: Albumin/Globulin Ratio 0.9 (1-3); BUN/Creatinine Ratio 42.9 (8-20); EGFR African American 222.1 (>60); EGFR Non-African American 183.6 (>60); Globulin 2.2 g/dL (2-4); Magnesium 1.8 mg/dL (1.9-2.7); Potassium 3.7 mmol/L (3.5-5.0); Total Bilirubin 0.7 mg/dL (0.2-1.0); Total Protein 4.2 g/dL (6.4-8.9)
[2018-06-22] MEDS: Multivitamins ADULT w/MIN LIQ* 15 ML UDC PO SCH (08:53)
[2018-06-22] MEDS: Lactobacillus Acidophilus* 1 TAB PO SCH ×2 (08:53→21:23)
[2018-06-22] MEDS: Famotidine SUSP ORALSYR 8 MG/ML J TUBE SCH ×2 (08:53→21:23)
[2018-06-22] MEDS: Potassium Chloride LIQUID* 20 MEQ PACKET PO SCH (08:53)
[2018-06-22] MEDS: Thiamine TAB* 100 MG TAB PO SCH (08:53)
[2018-06-22] MEDS: Folic Acid IV* 1 MG in NS 0.9% 50 ML* 50 ML IVPB SCH (09:05)
--- NOTE | 2018-06-22 10:36 | PN ---
Progress Note - Progress Note Date of Service: 06/22/18 SOAP: Subjective: Pt is on BIPAP. Responds nodding yes to pain in abd. Objective: Vital Signs Temp 96.9 F 06/22/18 07:50 Pulse 103 06/22/18 08:15 Resp 20 06/22/18 10:43 BP 103/60 06/22/18 08:15 Pulse Ox 98 06/22/18 08:15 Gen: lying in bed; opens eyes to voice. Abd: obese, distended; M/L incision c/d/i; no erythema; VIVIAN with bile drainage; dressing changed; tender at drain site and incision. Intake & Output 06/21/18 06/22/18 06/22/18 18:59 06:59 18:59 Intake Total 810 1206 Output Total 908 702 95 Balance -98 504 -95 Weight 250 lb 7.122 oz Intake: IV Fluids 384 764 LR 384 764 IVPB 60 Magnesium 60 Medicated IV 220 382 CC - Norepinephrine/ 220 382 Levophed Tube Feeding 156 NG Tube Irrigate Amount 50 NGT 50 Output: VIVIAN #1 3 140 Mckeon 605 562 95 Liquid Stool 300 Laboratory Results - last 24 hr 06/22/18 06/22/18 05:05 05:05 WBC 11.9 H RBC 1.91 L Hgb 6.9 L Hct 22 L MCV 117 H MCH 36 H MCHC 31 RDW 21 H Plt Count 85 L MPV 10.7 H Sodium 150 H Potassium 3.7 Chloride 114 H Carbon Dioxide 34 H Anion Gap 2 BUN 15 Creatinine 0.35 L Est GFR ( Amer) 222.1 Est GFR (Non-Af Amer) 183.6 BUN/Creatinine Ratio 42.9 H Glucose 90 Calcium 9.0 Magnesium 1.8 L Total Bilirubin 0.70 AST 27 ALT 30 Alkaline Phosphatase 1024 H Total Protein 4.2 L Albumin 2.0 L Globulin 2.2 Albumin/Globulin Ratio 0.9 L Assessment: S/P exlap for perforated gallbladder with drainage Lung cancer Malnutrition COPD Obesity Plan: Continue VIVIAN drain Comfort care/Palliative Care seems appropriate; consult pending
[2018-06-22] MEDS: Nystatin TOP POWDER* 15 GM BTL TOPICAL SCH ×2 (10:44→21:23)
[2018-06-22] MEDS: Fondaparinux* 2.5 MG/0.5 ML SYRINGE SUBCUT SCH (12:52)
--- NOTE | 2018-06-22 19:32 | PN ---
Date of Service: 06/22/18 Critical Care Services: Mental status remains very depressed, and she has been on BIPAP all day Vital Signs: Temp Pulse Resp BP SpO2 FiO2 96.3 F 96 25 109/55 100 70 Physical Exam: Gen:Somnolent but arousable Lungs:Scattered coarse rhonchi Abdomen: VIVIAN drain draining bilious fluid. Extremities:2-3+ edema Fluid Balance (Past 24 Hours): 06/22/18 06:59 Intake Total 2016 Output Total 1610 Balance 406 Weight 250 lb Intake: IV Fluids 1148 LR 1148 IVPB 60 Magnesium 60 folic acid Medicated IV 602 CC - Norepinephrine/ 602 Levophed Oral Tube Feeding 156 Tube Feeding Flush Amount Albumin NG Tube Irrigate Amount 50 NGT 50 Output: VIVIAN #1 143 Mckeon 1167 Liquid Stool 300 Tube Feeding Residual Amount Wasted Other: Date of Last Bowel Movement # Bowel Movements Estimated Stool Amount Labs: 06/22/18 06/22/18 05:05 05:05 WBC 11.9 H RBC 1.91 L Hgb 6.9 L Hct 22 L MCV 117 H MCH 36 H MCHC 31 RDW 21 H Plt Count 85 L MPV 10.7 H Sodium 150 Potassium 3.7 Chloride 114 H Carbon Dioxide 34 H Anion Gap 2 BUN 15 Creatinine 0.35 L Glucose 90 Calcium 9.0 Magnesium 1.8 L Total Bilirubin 0.70 AST 27 ALT 30 Alkaline Phosphatase 1024 H Total Protein 4.2 L Albumin 2.0 L Globulin 2.2 Albumin/Globulin Ratio 0.9 L Studies: None Nutrition: Tube feedings Impression: Clinical status unchanged, and prognosis for recovery remains very poor. is aware of this. There is no evidence of active infection, and alk phos is decreasing. Plan: 1. General supportive care. 2. Palliative care consult.
[2018-06-23] MEDS: Lactated Ringers 1000 ML Bag* 1,000 ML IV SCH (00:26)
[2018-06-23] MEDS: Albuterol/Ipratropium NEB.SOL* Albuterol 2.5 MG/Ipratropium 0.5 MG 3 ML INH SCH ×3 (00:58→14:05)
[2018-06-23] MEDS: Norepinephrine 16MCG/ML IVPRE* 4,000 MCG/250 ML BAG IV SCH (06:05)
[2018-06-23] MEDS: Albuterol 2.5 MG/3 ML NEB.SOL* (0.083%) INH PRN (07:07)
[2018-06-23] MEDS: fentaNYL* 50 MCG/ML 2 ML VIAL (100 MCG VIAL) IV PRN ×3 (08:32→16:56)
[2018-06-23] MEDS: Potassium Chloride LIQUID* 20 MEQ PACKET PO SCH (09:41)
[2018-06-23] MEDS: Famotidine SUSP ORALSYR 8 MG/ML J TUBE SCH (09:41)
[2018-06-23] MEDS: Thiamine TAB* 100 MG TAB PO SCH (09:42)
[2018-06-23] MEDS: Nystatin TOP POWDER* 15 GM BTL TOPICAL SCH (09:42)
[2018-06-23] MEDS: Lactobacillus Acidophilus* 1 TAB PO SCH (09:42)
[2018-06-23] MEDS: Multivitamins ADULT w/MIN LIQ* 15 ML UDC PO SCH (09:42)
[2018-06-23] MEDS ORDERED: fentaNYL PATCH 25 MCG/HR TRANSDERM SCH (12:00)
[2018-06-23] MEDS: Fondaparinux* 2.5 MG/0.5 ML SYRINGE SUBCUT SCH (12:10)
--- NOTE | 2018-06-23 12:12 | CONSULT ---
Palliative / Hospice Consult Ordering Provider: Richard Kohli - Subjective Code Status: DNR Advance Directives Location: In Chart MOLST Part A Completed: Yes - on chart MOLST Part E Completed:: Yes - on chart - History or Present Illness History or Present Illness: 72 yo transferred from [facility] to [facility] with abdominal pain N/V. She was inpatient with SNF then transferred to inpatient unit and then to [facility]. PMH is significant for small cell lung cancer 2018 s/p chemo and radiation, afib on xarelto, COPD O2 and steroid dependent, asthma, МАРИНА on CPAP, HTN, compression fx , chronic pain on opioids and diastolic dysfunction. She is an ex smoker, no etoh, no drug use 49yrs, retired from [employer] dept. Pt was found to have acute cholecystitis with sepsis intubated for chronic hypoxic resp failure, extubated 06/09, went to OR for exploratory lap with drainage, open abd and wound VAC for perforated GB with bile peritonitis, 06/11 back to OR for closure of abdomen, 06/13 extubated on Bipap. Not improving balancing between pulmonary edema and hypotension, not tolerating tube feeds. Several conversations with providers has made pt DNR/DNI and understands prognosis is poor. Lab Values: Laboratory Last Values WBC 11.9 10^3/uL (3.5-10.8) H 06/22/18 05:05 RBC 1.91 10^6 /uL (3.70-4.87) L 06/22/18 05:05 Hgb 6.9 g/dL (12.0-16.0) L 06/22/18 05:05 Hct 22 % (33-41) L 06/22/18 05:05 MCV 117 fL (80-97) H 06/22/18 05:05 MCH 36 pg (27-31) H 06/22/18 05:05 MCHC 31 g/dL (31-36) 06/22/18 05:05 RDW 21 % (10.5-15) H 06/22/18 05:05 Plt Count 85 10^3/uL (150-450) L 06/22/18 05:05 MPV 10.7 fL (7.4-10.4) H 06/22/18 05:05 Neut % (Auto) Not Reportable 06/15/18 05:50 Lymph % (Auto) Not Reportable 06/15/18 05:50 [facility] % (Auto) Not Reportable 06/15/18 05:50 Eos % (Auto) Not Reportable 06/15/18 05:50 Baso % (Auto) Not Reportable 06/15/18 05:50 Absolute Neuts (auto) Not Reportable 06/15/18 05:50 Absolute Lymphs (auto) Not Reportable 06/15/18 05:50 Absolute Monos (auto) Not Reportable 06/15/18 05:50 Absolute Eos (auto) Not Reportable 06/15/18 05:50 Absolute Basos (auto) Not Reportable 06/15/18 05:50 Absolute Nucleated RBC Not Reportable 06/15/18 05:50 Immature Gran % 1 % (0-9) 06/15/18 05:50 Neutrophils % 84 % 06/15/18 05:50 Band Neutrophils % 24 % (0-8) H 06/09/18 15:36 Lymphocytes % 11 % 06/15/18 05:50 Reactive Lymphs % 2 % (0-6) 06/15/18 05:50 Monocytes % 2 % 06/15/18 05:50 Myelocytes % 1 % (0-1) 06/15/18 05:50 Nucleated RBC % Not Reportable 06/15/18 05:50 Abs Neuts (Manual) 9.52 10^3/ul (1.5-7.7) H 06/15/18 05:50 Abs Lymphs (Manual) 1.46 10^3/ul (1.0-4.8) 06/15/18 05:50 Abs Monocytes (Manual) 0.22 10^3/ul (0-0.8) 06/15/18 05:50 Nucleated RBCs/100 WBC 1 (0-0) H 06/15/18 05:50 Toxic Granulation 1+ 06/08/18 17:15 Normal RBC Morphology Not Reportable 06/15/18 05:50 Polychromasia 1+ 06/08/18 17:15 Hypochromasia 1+ 06/11/18 06:04 Anisocytosis 1+ 06/15/18 05:50 Macrocytosis 1+ 06/15/18 05:50 INR (Anticoag Therapy) 1.66 (0.77-1.02) H 06/10/18 05:45 APTT 47.4 seconds (26.0-36.3) H 06/09/18 21:15 Patient Temperature 104.8 06/12/18 20:10 ABG pH 7.47 (7.35-7.45) H 06/12/18 20:10 ABG pH (Temp Correct) Not Reportable 06/12/18 20:10 ABG pCO2 35 mmHg (35-45) 06/12/18 20:10 ABG pCO2 (Temp Corrct Not Reportable 06/12/18 20:10 ABG pO2 99 mmHg (80-100) 06/12/18 20:10 ABG pO2 (Temp Correct Not Reportable 06/12/18 20:10 ABG HCO3 26.6 mmol/L (19-31) 06/12/18 20:10 ABG O2 Saturation 99.3 % (94.0-98.0) H 06/12/18 20:10 ABG Base Excess 2.1 mmol/L (-2.0-2.0) H 06/12/18 20:10 VBG pH 7.32 (7.32-7.43) 06/09/18 05:30 VBG pCO2 41 mmHg (41-51) 06/09/18 05:30 VBG pO2 43.0 mmHg (35-45) 06/09/18 05:30 VBG HCO3 20.4 mmol/L (24-28) L 06/09/18 05:30 VBG O2 Saturation 70.0 % (70-80) 06/09/18 05:30 VBG Base Excess -4.8 mmol/L (0.0-4.0) L 06/09/18 05:30 Respiration Rate 24 06/12/18 20:10 O2 Delivery Device vent 06/10/18 16:45 Ventilator Type 450 06/12/18 20:10 Vent Mode Not Reportable 06/12/18 20:10 FiO2 50 06/12/18 20:10 Inspiratory Time Not Reportable 06/12/18 20:10 PEEP 5 06/12/18 20:10 Pressure Support Not Reportable 06/12/18 20:10 Pressure Control Not Reportable 06/12/18 20:10 EPAP Not Reportable 06/12/18 20:10 IPAP Not Reportable 06/12/18 20:10 BiPAP Not Reportable 06/12/18 20:10 Sodium 150 mmol/L (135-145) H 06/22/18 05:05 Potassium 3.7 mmol/L (3.5-5.0) 06/22/18 05:05 Chloride 114 mmol/L (101-111) H 06/22/18 05:05 Carbon Dioxide 34 mmol/L (22-32) H 06/22/18 05:05 Anion Gap 2 mmol/L (2-11) 06/22/18 05:05 BUN 15 mg/dL (6-24) 06/22/18 05:05 Creatinine 0.35 mg/dL (0.51-0.95) L 06/22/18 05:05 Est GFR ( Amer) 222.1 (>60) 06/22/18 05:05 Est GFR (Non-Af Amer) 183.6 (>60) 06/22/18 05:05 BUN/Creatinine Ratio 42.9 (8-20) H 06/22/18 05:05 Glucose 90 mg/dL (70-100) 06/22/18 05:05 Lactic Acid 0.5 mmol/L (0.5-2.0) 06/10/18 11:57 Calcium 9.0 mg/dL (8.6-10.3) 06/22/18 05:05 Phosphorus 3.4 mg/dL (2.5-5.0) 06/20/18 05:46 Magnesium 1.8 mg/dL (1.9-2.7) L 06/22/18 05:05 Total Bilirubin 0.70 mg/dL (0.2-1.0) 06/22/18 05:05 Direct Bilirubin 0.30 mg/dL (0.03-0.18) H 06/21/18 05:24 Indirect Bilirubin 0.3 mg/dL (0.3-1.0) 06/21/18 05:24 GGT 1086 U/L (9-64.0) H 06/19/18 06:00 AST 27 U/L (13-39) 06/22/18 05:05 ALT 30 U/L (7-52) 06/22/18 05:05 Alkaline Phosphatase 1024 U/L (34-104) H 06/22/18 05:05 Total Protein 4.2 g/dL (6.4-8.9) L 06/22/18 05:05 Albumin 2.0 g/dL (3.2-5.2) L 06/22/18 05:05 Globulin 2.2 g/dL (2-4) 06/22/18 05:05 Albumin/Globulin Ratio 0.9 (1-3) L 06/22/18 05:05 Lipase < 10 U/L (11.0-82.0) L 06/08/18 17:15 Vitamin B12 1381 pg/mL (180-914) H 06/21/18 05:24 Folate 8.58 ng/mL (>3.99) 06/21/18 05:24 Urine Color Vanessa 06/09/18 15:27 Urine Appearance Cloudy 06/09/18 15:27 Urine pH 5.0 (5-9) 06/09/18 15:27 Ur Specific [place] > 1.060 (1.010-1.030) H 06/09/18 15:27 Urine Protein 1+(30 mg/dl) (Negative) A 06/09/18 15:27 Urine Ketones Trace (Negative) A 06/09/18 15:27 Urine Blood Negative (Negative) 06/09/18 15:27 Urine Nitrate Negative (Negative) 06/09/18 15:27 Urine Bilirubin Negative (Negative) 06/09/18 15:27 Urine Urobilinogen Negative (Negative) 06/09/18 15:27 Ur Leukocyte Esterase 1+ (Negative) A 06/09/18 15:27 Urine WBC (Auto) 1+(6-10/hpf) (Absent) A 06/09/18 15:27 Urine RBC (Auto) Absent (Absent) 06/09/18 15:27 Ur Squamous Epith Cells Present (Absent) A 06/09/18 15:27 Urine Bacteria Absent (Absent) 06/09/18 15:27 Urine Yeast Present (Absent) A 06/09/18 15:27 Urine Glucose Negative (Negative) 06/09/18 15:27 Anti-Platelet Antibody Negative 06/12/18 11:10 Anti-Plt HLA Class I Ab Negative 06/12/18 11:10 Anti-Plt GP Ia/IIa Cell1 Negative 06/12/18 11:10 Anti-Plt GP Ia/IIa Cell2 Negative 06/12/18 11:10 Anti-Plt GP Ib/IX Negative 06/12/18 11:10 Anti-Plt GP IIb/IIIa Cell1 Negative 06/12/18 11:10 Anti-Plt GP IIb/IIIa Cell2 Negative 06/12/18 11:10 Anti-Plt GP IV Negative 06/12/18 11:10 Anti-Plt Prov Pt Diag See comment 06/12/18 11:10 Anti-Platelet IVIg No 06/12/18 11:10 Anti-Plt Plt Tx 72hrs No 06/12/18 11:10 Anti-Plt Plt x10(9)/L 55 06/12/18 11:10 Platelet Ab Comment See comment 06/12/18 11:10 Blood Type O Negative 06/09/18 15:47 Antibody Screen Negative 06/09/18 15:47 Crossmatch See Detail 06/09/18 15:47 - Objective Active Medications: Albuterol (Ventolin 2.5 Mg/3 Ml Neb.Yaneli*) 2.5 mg INH Q2H PRN PRN Reason: SOB/WHEEZING Last Admin: 06/20/18 19:39 Dose: 2.5 mg Albuterol/Ipratropium (Duoneb (Albuterol 2.5 Mg/Ipratropium 0.5 Mg)) 1 neb INH [id number] AWAKE [facility] Last Admin: 06/23/18 07:07 Dose: 1 neb Famotidine (Pepcid Susp*) 20 mg J TUBE BID [facility] Last Admin: 06/23/18 09:41 Dose: 20 mg Fentanyl (Duragesic Patch 25 Mcg/Hr*) 25 mcg TRANSDERM Q72H [facility] Fentanyl Citrate (Fentanyl*) 25 mcg IV Q2H PRN PRN Reason: PAIN Last Admin: 06/23/18 08:32 Dose: 25 mcg Fondaparinux (Arixtra*) 2.5 mg SUBCUT DAILY@1200 [facility] Last Admin: 06/22/18 12:52 Dose: 2.5 mg Norepinephrine Bitartrate (Levophed 16 Mcg/Ml Premix Bag*) 4,000 mcg in 250 mls @ 18.75 mls/hr IV .INITIAL RATE [facility]; Protocol Last Admin: 06/23/18 06:05 Dose: 11.3 mls/hr Lactated Ringer's (Lactated Ringers 1000 Ml Bag*) 1,000 mls @ 50 mls/hr IV PER RATE [facility] Last Admin: 06/23/18 00:26 Dose: 50 mls/hr Folic Acid 1 mg/ Sodium (Chloride) 50.2 mls @ 100.4 mls/hr IVPB DAILY [facility] Last Admin: 06/22/18 09:05 Dose: 100.4 mls/hr Lactobacillus Rhamnosus (Lactobacillus Acidophilus*) 1 tab PO BID [facility] Last Admin: 06/23/18 09:42 Dose: 1 tab Melatonin (Melatonin) 3 mg PO BEDTIME PRN PRN Reason: SLEEP Last Admin: 06/16/18 20:51 Dose: 3 mg Multivitamins (Theragran W/Minerals Liq*) 15 ml PO DAILY [facility] Last Admin: 06/23/18 09:42 Dose: 15 ml Nystatin (Nystatin Top Powder*) 1 applic TOPICAL BID [facility] Last Admin: 06/23/18 09:42 Dose: 1 applic Oxycodone HCl (Oxycodone Oral.Soln*) 5 mg PO Q6H PRN PRN Reason: PAIN Last Admin: 06/21/18 08:55 Dose: 5 mg Polyvinyl Alcohol (Polyvinyl Alcohol 1.4% Opth*) 1 drop BOTH EYES Q4H PRN PRN Reason: DRY EYE Last Admin: 06/20/18 21:32 Dose: 1 drop Potassium Chloride (Klor-Con Liquid*) 20 meq PO DAILY [facility] Last Admin: 06/23/18 09:41 Dose: 20 meq Thiamine HCl (Vitamin B-1 Tab*) 100 mg PO DAILY [facility] Last Admin: 06/23/18 09:42 Dose: 100 mg Vital Signs: Vital Signs: Temp Pulse Resp BP Pulse Ox 96.2 F 96 14 109/54 100 06/23/18 03:57 06/23/18 11:30 06/23/18 11:30 06/23/18 11:30 06/23/18 11:30 Patient Weight: Weight 114.4 kg Intake and Output: Intake & Output 06/21/18 06/22/18 06/23/18 06/24/18 06:59 06:59 06:59 06:59 Intake Total 3176 2016 1527 Output Total 1018 1610 1235 205 Balance 2158 406 292 -205 Weight 115.6 kg 113.6 kg 114.4 kg Intake: IV Fluids 1663 1148 1280 LR 1663 1148 1280 IVPB 62 60 Magnesium 60 folic acid 62 Medicated IV 231 602 207 CC - Norepinephrine/ 231 602 207 Levophed Tube Feeding 860 156 Tube Feeding Flush Amount 360 NG Tube Irrigate Amount 50 40 NGT 50 40 Output: VIVIAN #1 30 143 250 [place] 888 1167 885 205 Liquid Stool 300 100 Tube Feeding Residual 100 Amount Wasted Other: Estimated Stool Amount Medium ADLs: Meal Record Start: 06/08/18 17: 17 Freq: Status: Complete Protocol: Created 06/08/18 17:17 System (Rec: 06/08/18 17:17 System U-C05) ADLs: Meal Record Start: 06/08/18 19: 14 Freq: ,13,18 Status: Complete Protocol: Created 06/08/18 19:14 [id number] (Rec: 06/08/18 19:14 [id number] ICU-C06) ADLs: Meal Record Start: 06/09/18 00: 02 Freq: Status: Active Protocol: Created 06/09/18 00:02 [id number] (Rec: 06/09/18 00:02 [id number] ICU-C06) Document 06/09/18 09:00 DPP7954 (Rec: 06/09/18 10:33 KZW2081 ICU-C06) Document 06/09/18 13:00 DKQ4946 (Rec: 06/09/18 13:28 UQF3292 ICU-C06) Document 06/10/18 13:00 DHJ0054 (Rec: 06/10/18 17:45 FXT1332 ICU-C07) Document 06/10/18 18:00 DKV0243 (Rec: 06/10/18 18:02 BIL3274 ICU-C07) Document 06/11/18 09:00 HPG1905 (Rec: 06/11/18 12:11 AJP9362 ICU-M32) Document 06/11/18 18:00 XHQ8614 (Rec: 06/11/18 18:44 BRL0557 ICU-C07) Document 06/12/18 11:10 YGE3488 (Rec: 06/12/18 11:27 PUD6419 ICU-C06) Document 06/12/18 13:00 TSJ5918 (Rec: 06/12/18 18:31 [id number] ICU-C06) Document 06/12/18 18:30 UIU9556 (Rec: 06/12/18 19:26 NQW0854 ICU-C06) Document 06/13/18 09:00 SYX8280 (Rec: 06/13/18 16:34 WCS9701 ICU-C06) Document 06/13/18 13:00 FGM0247 (Rec: 06/13/18 16:49 BMZ6494 ICU-C06) Document 06/13/18 18:00 UEY5496 (Rec: 06/13/18 18:57 RAI7290 ICU-C06) Document 06/15/18 13:00 JLL8224 (Rec: 06/15/18 14:21 VTR9687 ICU-C06) Document 06/16/18 13:00 CUA3770 (Rec: 06/16/18 13:49 TXF9214 ICU-C07) Document 06/16/18 18:00 LIW7221 (Rec: 06/16/18 18:11 BYF4830 ICU-C07) Document 06/17/18 09:00 UEN9031 (Rec: 06/17/18 15:10 CDT0859 ICU-C07) Document 06/17/18 13:00 DSY1353 (Rec: 06/17/18 15:10 AUZ0158 ICU-C07) Document 06/17/18 15:10 DWF0118 (Rec: 06/17/18 15:10 ZQP1139 ICU-C07) Document 06/18/18 09:00 MTM4204 (Rec: 06/18/18 10:05 ISK1758 ICU-C07) Document 06/18/18 12:28 CUF4816 (Rec: 06/18/18 12:29 XZV2862 ICU-C07) Document 06/18/18 17:34 LOL1706 (Rec: 06/18/18 17:35 TBV0510 ICU-C12) Intake and Output Start: 06/08/18 17: 17 Freq: DAILY@0600,1400,2200 Status: Complete Protocol: Created 06/08/18 17:17 System (Rec: 06/08/18 17:17 System SSU-C05) Intake and Output Start: 06/08/18 19: 14 Freq: Q1HR Status: Complete Protocol: Created 06/08/18 19:14 LUS6686 (Rec: 06/08/18 19:14 UYU0634 ICU-C06) Document 06/08/18 22:28 JCP9443 (Rec: 06/08/18 22:28 HQQ7684 ICU-M32) Document 06/08/18 22:46 IKY9582 (Rec: 06/08/18 22:46 TBZ2569 ICU-M32) Intake and Output Start: 06/09/18 00: 02 Freq: Q1HR Status: Active Protocol: Created 06/09/18 00:02 AAX3448 (Rec: 06/09/18 00:02 HCG6662 ICU-C06) Document 06/09/18 01:56 BVT6463 (Rec: 06/09/18 01:56 MXL4914 ICU-M32) Document 06/09/18 04:00 FRW3305 (Rec: 06/09/18 05:09 ETJ2758 ICU-M25) Document 06/09/18 08:00 LGO2845 (Rec: 06/09/18 11:30 OZY0549 ICU-C06) Document 06/09/18 12:00 XSI8581 (Rec: 06/09/18 13:30 JZC7324 ICU-C06) Document 06/09/18 15:44 DND6317 (Rec: 06/09/18 15:44 ZOI8322 ICU-C07) Document 06/09/18 18:00 ZEF2956 (Rec: 06/10/18 01:20 BLK1344 ICU-C06) Document 06/09/18 20:00 EKJ4751 (Rec: 06/09/18 21:48 ZHL6894 ICU-C06) Document 06/09/18 22:00 PYT1496 (Rec: 06/09/18 22:08 MVS7607 ICU-C06) Document 06/09/18 23:50 RJG5638 (Rec: 06/09/18 23:50 EYJ0172 ICU-C06) Document 06/10/18 01:00 KXV1300 (Rec: 06/10/18 01:14 WXU9540 ICU-C06) Document 06/10/18 02:00 WZL7878 (Rec: 06/10/18 02:11 NUH5549 ICU-C06) Document 06/10/18 03:00 QNE8929 (Rec: 06/10/18 03:22 FLZ1228 ICU-C06) Document 06/10/18 04:00 TEE9958 (Rec: 06/10/18 04:30 BKD0146 ICU-C06) Document 06/10/18 05:54 ETL2104 (Rec: 06/10/18 05:56 LQI8172 ICU-M32) Document 06/10/18 07:00 SYL1585 (Rec: 06/10/18 09:20 SBU2531 ICU-C07) Document 06/10/18 08:00 ZHP0796 (Rec: 06/10/18 09:20 MLS8207 ICU-C07) Document 06/10/18 09:00 YLD2916 (Rec: 06/10/18 10:48 BYT6274 ICU-C07) Document 06/10/18 10:00 VAP1624 (Rec: 06/10/18 10:49 KRQ6462 ICU-C07) Document 06/10/18 10:49 BUK9091 (Rec: 06/10/18 10:49 DFB0948 ICU-C07) Document 06/10/18 12:00 DTA4407 (Rec: 06/10/18 12:42 DXY9452 ICU-C07) Document 06/10/18 13:00 SXV0210 (Rec: 06/10/18 17:09 QAC5025 ICU-M32) Document 06/10/18 14:00 JFE5384 (Rec: 06/10/18 17:09 NUZ1302 ICU-M32) Document 06/10/18 15:00 GVU4776 (Rec: 06/10/18 17:10 VZP6114 ICU-M32) Document 06/10/18 16:00 HSH0833 (Rec: 06/10/18 18:35 FCG1956 ICU-C07) Document 06/10/18 17:00 QKO6491 (Rec: 06/10/18 18:35 KSK9227 ICU-C07) Document 06/10/18 18:00 KUG0422 (Rec: 06/10/18 18:35 ZPJ3324 ICU-C07) Document 06/10/18 19:00 OPT2896 (Rec: 06/10/18 19:44 VNQ4836 ICU-M32) Document 06/10/18 20:00 SFK5598 (Rec: 06/10/18 20:24 ZKJ9751 ICU-C07) Document 06/10/18 21:00 DZF4006 (Rec: 06/10/18 21:32 LLR1094 ICU-C07) Document 06/10/18 22:07 GVQ4336 (Rec: 06/10/18 22:07 PNC1072 ICU-M32) Document 06/10/18 23:00 DNO4877 (Rec: 06/11/18 00:11 DDN6434 ICU-C07) Document 06/11/18 00:00 VUS3149 (Rec: 06/11/18 00:11 NMT3349 ICU-C07) Document 06/11/18 01:00 QNH8128 (Rec: 06/11/18 02:38 UGX3158 ICU-C07) Document 06/11/18 02:00 VRF8673 (Rec: 06/11/18 02:43 UPM0280 ICU-C07) Document 06/11/18 03:00 OAP2656 (Rec: 06/11/18 03:47 KII5798 ICU-M32) Document 06/11/18 04:00 XFV7042 (Rec: 06/11/18 04:31 TXG7382 ICU-C07) Document 06/11/18 05:00 WUO3113 (Rec: 06/11/18 05:59 NGV2546 ICU-M32) Document 06/11/18 06:00 OPA3681 (Rec: 06/11/18 06:11 PQS1761 ICU-M32) Document 06/11/18 07:00 GTX9144 (Rec: 06/11/18 08:23 JBB8857 ICU-M23) Document 06/11/18 08:00 OHG4885 (Rec: 06/11/18 08:24 TPA2139 ICU-M23) Document 06/11/18 09:00 LPD4452 (Rec: 06/11/18 10:01 TXR4155 ICU-M32) Document 06/11/18 10:00 QID5165 (Rec: 06/11/18 10:01 EBG9770 ICU-M32) Document 06/11/18 11:00 JKK3640 (Rec: 06/11/18 11:02 CEA6900 ICU-M32) Document 06/11/18 12:00 YSC2017 (Rec: 06/11/18 13:47 QRN7467 ICU-M24) Document 06/11/18 15:00 YTV8054 (Rec: 06/11/18 15:49 RWA3899 ICU-C07) Document 06/11/18 15:56 JMS8868 (Rec: 06/11/18 16:22 BXT6501 ICU-C07) Document 06/11/18 18:00 OMS2358 (Rec: 06/11/18 18:36 AMO0245 ICU-C07) Document 06/11/18 19:00 JWP1899 (Rec: 06/11/18 20:09 NNL5723 ICU-M32) Document 06/11/18 20:00 CQB3702 (Rec: 06/11/18 20:12 ZEC5320 ICU-M32) Document 06/11/18 22:00 LGQ1669 (Rec: 06/11/18 22:27 FSD8718 ICU-C07) Document 06/11/18 23:00 ZYF3052 (Rec: 06/11/18 23:30 ANQ5994 ICU-C07) Document 06/12/18 01:00 MKG0235 (Rec: 06/12/18 01:15 IXW7641 ICU-C07) Document 06/12/18 02:00 RNI3358 (Rec: 06/12/18 03:09 CXT2162 ICU-C07) Document 06/12/18 03:00 POK8915 (Rec: 06/12/18 03:10 AJK6717 ICU-C07) Document 06/12/18 04:00 AYB5502 (Rec: 06/12/18 04:52 HKA9086 ICU-C07) Document 06/12/18 05:00 PHB4407 (Rec: 06/12/18 05:05 OFA6970 ICU-C07) Document 06/12/18 06:00 PRB2156 (Rec: 06/12/18 06:32 OOA9575 ICU-C07) Document 06/12/18 07:00 VFV5817 (Rec: 06/12/18 08:28 LLG2638 ICU-C06) Document 06/12/18 08:00 NNN2088 (Rec: 06/12/18 10:13 ZXZ0138 ICU-C06) Document 06/12/18 09:00 IXJ4185 (Rec: 06/12/18 10:13 TOB4142 ICU-C06) Document 06/12/18 10:00 PNH5706 (Rec: 06/12/18 10:35 MJZ0185 ICU-C06) Document 06/12/18 11:00 CFU4790 (Rec: 06/12/18 11:28 JQK1934 ICU-C06) Document 06/12/18 11:30 UAL4879 (Rec: 06/12/18 13:30 GLJ7987 ICU-C06) Document 06/12/18 13:00 LTJ7011 (Rec: 06/12/18 13:31 VCM5168 ICU-C06) Document 06/12/18 14:00 YVX0996 (Rec: 06/12/18 14:28 ADP6015 ICU-C06) Document 06/12/18 15:00 XXU1557 (Rec: 06/12/18 19:12 TOQ2340 ICU-C06) Document 06/12/18 17:30 HVU0874 (Rec: 06/12/18 19:25 MJW6742 ICU-C06) Document 06/12/18 18:30 HCZ5200 (Rec: 06/12/18 19:26 GXQ9654 ICU-C06) Document 06/12/18 19:00 ZZT4796 (Rec: 06/12/18 20:47 WWX5967 ICU-C06) Document 06/12/18 21:00 GAR5402 (Rec: 06/12/18 21:57 SYT8793 ICU-C06) Document 06/12/18 23:00 ZDG2508 (Rec: 06/12/18 23:49 IJQ3282 ICU-C06) Document 06/13/18 01:00 RHO4602 (Rec: 06/13/18 01:18 QQH7014 ICU-C06) Document 06/13/18 02:00 SAT5894 (Rec: 06/13/18 02:05 YLF5827 ICU-C06) Document 06/13/18 03:00 TIV0458 (Rec: 06/13/18 03:22 CDP6854 ICU-C06) Document 06/13/18 04:00 RYS2698 (Rec: 06/13/18 05:37 XRW3512 ICU-C06) Document 06/13/18 05:00 EKE7663 (Rec: 06/13/18 05:50 QTF3630 ICU-C06) Document 06/13/18 06:00 KET4425 (Rec: 06/13/18 07:25 UDM3774 ICU-C06) Document 06/13/18 07:00 LUJ4844 (Rec: 06/13/18 13:09 TOC0394 ICU-C06) Document 06/13/18 08:00 RLF4638 (Rec: 06/13/18 13:09 DNB0951 ICU-C06) Document 06/13/18 08:00 RZD5473 (Rec: 06/13/18 13:11 ASV5782 ICU-C06) Document 06/13/18 09:00 INZ1307 (Rec: 06/13/18 13:10 TJI9630 ICU-C06) Document 06/13/18 10:00 ZYX1073 (Rec: 06/13/18 13:10 TBD0212 ICU-C06) Document 06/13/18 11:00 ROG4350 (Rec: 06/13/18 13:10 PPY8929 ICU-C06) Document 06/13/18 12:00 XOQ5469 (Rec: 06/13/18 13:10 GAM1075 ICU-C06) Document 06/13/18 13:00 XBO9920 (Rec: 06/13/18 14:50 DMZ6947 ICU-C06) Document 06/13/18 14:00 GAN5877 (Rec: 06/13/18 14:50 EFE0862 ICU-C06) Document 06/13/18 14:50 CLW5599 (Rec: 06/13/18 14:50 IDD2235 ICU-C06) Document 06/13/18 16:00 HNX3712 (Rec: 06/13/18 17:08 OIV8789 ICU-C06) Document 06/13/18 17:00 HSE4108 (Rec: 06/13/18 17:08 WFX2565 ICU-C06) Document 06/13/18 18:00 VEF3787 (Rec: 06/13/18 18:58 [id number] ICU-C06) Document 06/13/18 20:00 BIZ3804 (Rec: 06/13/18 20:51 CAC3682 ICU-C06) Document 06/13/18 20:52 MUM5633 (Rec: 06/13/18 20:52 UUH7045 ICU-C06) Document 06/13/18 21:50 CMP1622 (Rec: 06/13/18 21:53 LRO7949 ICU-M32) Document 06/13/18 23:36 TXI9230 (Rec: 06/13/18 23:36 QKK4475 ICU-C06) Document 06/14/18 01:00 HIR7395 (Rec: 06/14/18 01:11 CSR8267 ICU-C06) Document 06/14/18 02:00 FCF7218 (Rec: 06/14/18 02:10 RII3920 ICU-M32) Document 06/14/18 03:00 PMZ5854 (Rec: 06/14/18 03:04 XYO7367 ICU-C06) Document 06/14/18 04:00 TIB4835 (Rec: 06/14/18 04:50 XKW0263 ICU-C06) Document 06/14/18 05:00 CSA7651 (Rec: 06/14/18 05:11 VID7290 ICU-C06) Document 06/14/18 06:00 BCS7494 (Rec: 06/14/18 06:10 JDI8720 ICU-M32) Document 06/14/18 07:00 PNY0024 (Rec: 06/14/18 09:34 QUO4157 ICU-C06) Document 06/14/18 08:00 XYI8690 (Rec: 06/14/18 09:34 NLT9543 ICU-C06) Document 06/14/18 09:00 VMD9539 (Rec: 06/14/18 11:41 ICO4188 ICU-M32) Document 06/14/18 10:00 TLI9109 (Rec: 06/14/18 11:41 OTG4793 ICU-M32) Document 06/14/18 11:00 YYC9580 (Rec: 06/14/18 11:41 SMI6340 ICU-M32) Document 06/14/18 12:39 KKL7489 (Rec: 06/14/18 12:39 ZKR5350 ICU-C12) Document 06/14/18 13:00 CCX6167 (Rec: 06/14/18 13:28 UAL3016 ICU-C06) Document 06/14/18 14:00 TZH8890 (Rec: 06/14/18 14:45 QPT3769 ICU-C06) Document 06/14/18 14:30 HQV1284 (Rec: 06/14/18 15:08 KBC1295 ICU-M32) Document 06/14/18 15:05 TXW6851 (Rec: 06/14/18 15:08 WNY5832 ICU-M32) Document 06/14/18 16:00 QNZ5300 (Rec: 06/14/18 17:03 RAC8872 ICU-M32) Document 06/14/18 17:00 TSD0943 (Rec: 06/14/18 17:03 HSH6621 ICU-M32) Document 06/14/18 18:00 YBP6693 (Rec: 06/14/18 18:00 NCD9157 ICU-M32) Document 06/14/18 18:00 LBH3675 (Rec: 06/14/18 18:04 CGN6305 ICU-M32) Document 06/14/18 19:57 QNN4044 (Rec: 06/14/18 19:57 RPU4151 ICU-C06) Document 06/14/18 20:00 AOW0346 (Rec: 06/14/18 22:10 NFG8505 ICU-M32) Document 06/14/18 22:00 WMJ7816 (Rec: 06/14/18 22:09 MCD5748 ICU-M32) Document 06/14/18 22:00 FLU5743 (Rec: 06/14/18 22:10 TXA4209 ICU-M32) Document 06/14/18 23:00 ANX4825 (Rec: 06/14/18 23:03 XEW0347 ICU-C06) Document 06/15/18 00:00 RUX6336 (Rec: 06/15/18 00:30 NRR1347 ICU-C06) Document 06/15/18 00:58 FLP4343 (Rec: 06/15/18 00:58 PFZ3717 ICU-C06) Document 06/15/18 02:00 XXT3354 (Rec: 06/15/18 02:25 FBB5284 ICU-C06) Document 06/15/18 03:00 MMN0919 (Rec: 06/15/18 03:07 ACQ4976 ICU-C06) Document 06/15/18 04:00 LGI5194 (Rec: 06/15/18 04:54 FWR5490 ICU-C06) Document 06/15/18 05:56 FKX5966 (Rec: 06/15/18 05:56 VJA4925 ICU-M32) Document 06/15/18 05:56 YCV8440 (Rec: 06/15/18 05:56 KCF4077 ICU-M32) Document 06/15/18 07:00 CGS6850 (Rec: 06/15/18 10:31 THW5520 ICU-C06) Document 06/15/18 08:00 RWT7669 (Rec: 06/15/18 10:31 MVV2460 ICU-C06) Document 06/15/18 09:00 WZS2174 (Rec: 06/15/18 10:31 ABE8808 ICU-C06) Document 06/15/18 10:00 MPP0538 (Rec: 06/15/18 10:31 GST0741 ICU-C06) Document 06/15/18 11:00 TNF2831 (Rec: 06/15/18 11:29 GKQ2397 ICU-C06) Document 06/15/18 12:00 ORN7279 (Rec: 06/15/18 12:45 ZZA6599 ICU-C06) Document 06/15/18 13:00 BIN9263 (Rec: 06/15/18 16:08 BAF8944 ICU-C06) Document 06/15/18 14:00 CLK2368 (Rec: 06/15/18 16:08 BOZ4153 ICU-C06) Document 06/15/18 15:00 EQN7662 (Rec: 06/15/18 16:08 OGM6162 ICU-C06) Document 06/15/18 16:00 PSP6630 (Rec: 06/15/18 16:08 UPL6729 ICU-C06) Document 06/15/18 17:00 PUY0511 (Rec: 06/15/18 18:40 UND5257 ICU-C06) Document 06/15/18 18:00 UDN4208 (Rec: 06/15/18 18:40 KQL8078 ICU-C06) Document 06/15/18 20:00 NHX7480 (Rec: 06/15/18 20:50 AUS7335 ICU-C07) Document 06/15/18 21:00 FNK4664 (Rec: 06/15/18 21:16 KMK6456 ICU-C07) Document 06/15/18 21:16 DDS5037 (Rec: 06/15/18 21:17 BEO4178 ICU-C07) Document 06/15/18 22:00 XVF4459 (Rec: 06/15/18 22:14 XGM7515 ICU-C07) Document 06/15/18 22:57 TAX0723 (Rec: 06/15/18 22:57 IWD1054 ICU-C07) Document 06/16/18 00:00 ZXC5042 (Rec: 06/16/18 00:17 YKC9649 ICU-M32) Document 06/16/18 02:00 XSE6037 (Rec: 06/16/18 02:13 BYR5664 ICU-C07) Document 06/16/18 03:00 ZCF8013 (Rec: 06/16/18 03:02 TPO2588 ICU-C07) Document 06/16/18 04:00 SJP5872 (Rec: 06/16/18 04:17 HHL9165 ICU-C07) Document 06/16/18 05:58 RZT1736 (Rec: 06/16/18 05:58 HTJ0259 ICU-M32) Document 06/16/18 08:00 VVV9721 (Rec: 06/16/18 10:27 YSD4711 ICU-C07) Document 06/16/18 09:00 DHQ7725 (Rec: 06/16/18 10:39 YTL6525 ICU-C07) Document 06/16/18 10:00 GAY5438 (Rec: 06/16/18 10:39 TTB9117 ICU-C07) Document 06/16/18 12:00 SUP2754 (Rec: 06/16/18 12:04 CYV9506 ICU-M32) Document 06/16/18 13:00 BQB6296 (Rec: 06/16/18 13:49 OHE4589 ICU-C07) Document 06/16/18 14:00 LUY4884 (Rec: 06/16/18 14:03 EPT2004 ICU-C07) Document 06/16/18 15:00 HEW0927 (Rec: 06/16/18 16:01 EAL8703 ICU-C07) Document 06/16/18 16:00 PCD5854 (Rec: 06/16/18 16:18 PRZ6015 ICU-C07) Document 06/16/18 17:00 WEU5584 (Rec: 06/16/18 17:12 RTZ6194 ICU-C07) Document 06/16/18 18:00 XSP5315 (Rec: 06/16/18 18:11 LNS8629 ICU-C07) Document 06/16/18 20:00 MRR8537 (Rec: 06/16/18 20:23 JDG4556 ICU-C06) Document 06/16/18 21:00 WAT5501 (Rec: 06/16/18 21:03 CKQ2125 ICU-M32) Document 06/16/18 21:00 QAL7903 (Rec: 06/17/18 01:50 EQD3978 ICU-C06) Document 06/16/18 22:00 HET6749 (Rec: 06/16/18 22:02 UUO2682 ICU-C07) Document 06/16/18 22:50 [id number] (Rec: 06/16/18 22:50 [id number] ICU-C06) Document 06/17/18 00:00 MFH7999 (Rec: 06/17/18 03:59 GGS1457 ICU-C07) Document 06/17/18 00:53 XQR0883 (Rec: 06/17/18 00:55 NCK0966 ICU-M32) Document 06/17/18 03:00 KZN8197 (Rec: 06/17/18 03:22 MJB3219 ICU-C06) Document 06/17/18 04:00 YGL7790 (Rec: 06/17/18 04:25 LTA8654 ICU-C07) Document 06/17/18 05:51 JFI7206 (Rec: 06/17/18 05:52 KWK3343 ICU-M32) Document 06/17/18 07:32 TCB4705 (Rec: 06/17/18 07:32 DND2205 ICU-C07) Document 06/17/18 09:00 LNY6399 (Rec: 06/17/18 15:12 TRP3267 ICU-C07) Document 06/17/18 10:00 SWI4823 (Rec: 06/17/18 15:12 LCU5592 ICU-C07) Document 06/17/18 11:00 JFG1801 (Rec: 06/17/18 15:12 JBD5275 ICU-C07) Document 06/17/18 12:00 SLN7139 (Rec: 06/17/18 15:12 TTJ8614 ICU-C07) Document 06/17/18 13:00 UFF2702 (Rec: 06/17/18 15:12 ZPP0655 ICU-C07) Document 06/17/18 14:00 CJD7961 (Rec: 06/17/18 15:12 RCQ0188 ICU-C07) Document 06/17/18 15:00 PSO2252 (Rec: 06/17/18 15:12 HMQ0475 ICU-C07) Document 06/17/18 16:00 JRO3565 (Rec: 06/17/18 17:55 FMC2682 ICU-C07) Document 06/17/18 17:00 PDE4640 (Rec: 06/17/18 17:55 VBW6456 ICU-C07) Document 06/17/18 18:00 RYK3732 (Rec: 06/17/18 18:59 GVM7546 ICU-C07) Document 06/17/18 20:38 PRR4361 (Rec: 06/17/18 20:40 NYK9936 ICU-M32) Document 06/17/18 22:00 OMU3478 (Rec: 06/17/18 22:14 CBY4286 ICU-M32) Document 06/17/18 22:14 HDP7462 (Rec: 06/17/18 22:15 MTM3118 ICU-M32) Document 06/17/18 23:00 VSJ4238 (Rec: 06/17/18 23:06 VYS5639 ICU-C07) Document 06/18/18 00:00 WLO6475 (Rec: 06/18/18 00:36 HBM6778 ICU-C07) Document 06/18/18 01:00 YUI3531 (Rec: 06/18/18 03:09 DPV0514 ICU-C07) Document 06/18/18 02:00 ZAF5167 (Rec: 06/18/18 03:10 GEM7890 ICU-C07) Document 06/18/18 03:00 VYH3619 (Rec: 06/18/18 03:10 WXA9546 ICU-C07) Document 06/18/18 05:35 FNY3148 (Rec: 06/18/18 05:36 KPG0722 ICU-M32) Document 06/18/18 06:38 UXH0631 (Rec: 06/18/18 06:38 UUN4573 ICU-C07) Document 06/18/18 07:55 RVO9046 (Rec: 06/18/18 08:02 MFU4215 ICU-C07) Document 06/18/18 08:35 HRR5652 (Rec: 06/18/18 08:36 LDW5229 ICU-M32) Document 06/18/18 10:00 TYY0591 (Rec: 06/18/18 10:25 ARO6368 ICU-C07) Document 06/18/18 10:57 MHY5168 (Rec: 06/18/18 11:00 TJB6999 ICU-C07) Document 06/18/18 11:00 CRX8471 (Rec: 06/18/18 11:07 PIZ0476 ICU-C07) Document 06/18/18 12:27 CET5071 (Rec: 06/18/18 12:27 XZH6648 ICU-C07) Document 06/18/18 13:36 CYT4898 (Rec: 06/18/18 13:36 CGT4814 ICU-M32) Document 06/18/18 15:00 YMM0469 (Rec: 06/18/18 15:18 TGI7070 ICU-C07) Document 06/18/18 15:19 VDN0458 (Rec: 06/18/18 15:28 EQK4971 ICU-C07) Document 06/18/18 16:47 JOW8846 (Rec: 06/18/18 16:51 PDH9052 ICU-C12) Document 06/18/18 17:34 OCG2923 (Rec: 06/18/18 17:35 OKQ5938 ICU-C12) Document 06/18/18 18:00 FZM9564 (Rec: 06/18/18 18:27 UAV1803 ICU-C12) Document 06/18/18 19:00 MSN6511 (Rec: 06/18/18 19:22 WSY4355 ICU-C16) Document 06/18/18 20:00 RSU0020 (Rec: 06/18/18 20:42 YNV0296 ICU-C16) Document 06/18/18 22:00 BNT0981 (Rec: 06/18/18 22:02 VEB7708 ICU-C16) Document 06/19/18 01:00 EEC9024 (Rec: 06/19/18 01:12 IPF0577 ICU-C16) Document 06/19/18 01:35 LYO6427 (Rec: 06/19/18 01:35 OKZ9236 ICU-C16) Document 06/19/18 03:00 HPJ5725 (Rec: 06/19/18 03:12 ICC4932 ICU-C16) Document 06/19/18 04:00 MGR9731 (Rec: 06/19/18 04:49 GTD1840 ICU-C16) Document 06/19/18 06:00 WEJ7055 (Rec: 06/19/18 06:11 MPP3283 ISDEMO-M03 ) Document 06/19/18 08:00 STB6402 (Rec: 06/19/18 08:39 JAO8666 ISDEMO-M03 ) Document 06/19/18 10:00 NBV2748 (Rec: 06/19/18 11:10 PAF1857 ICU-C16) Document 06/19/18 11:35 MVT5542 (Rec: 06/19/18 11:35 IJM3731 ICU-C16) Document 06/19/18 15:00 YUU9624 (Rec: 06/19/18 15:31 QDJ6993 ICU-C16) Document 06/19/18 15:35 HPV9636 (Rec: 06/19/18 15:49 GUP1965 ICU-M25) Document 06/19/18 17:00 MOC2528 (Rec: 06/19/18 17:54 WLW1035 ICU-M25) Document 06/19/18 18:00 USR6748 (Rec: 06/19/18 18:06 KVZ5267 ICU-M25) Document 06/19/18 19:05 YYG8595 (Rec: 06/19/18 19:23 IFY1283 ICU-C16) Document 06/19/18 20:17 KBH9580 (Rec: 06/19/18 20:17 ASN4100 ICU-C16) Document 06/19/18 22:05 FTO1729 (Rec: 06/19/18 22:08 KQW9782 ICU-C16) Document 06/19/18 23:00 ELB4845 (Rec: 06/19/18 23:06 OXJ9182 ICU-C16) Document 06/20/18 00:16 NHQ0118 (Rec: 06/20/18 00:17 JFG5884 ICU-C16) Document 06/20/18 01:07 ODK6820 (Rec: 06/20/18 01:08 LQS7030 ICU-C16) Document 06/20/18 02:19 DSJ2677 (Rec: 06/20/18 02:19 FVQ9240 ICU-C16) Document 06/20/18 03:31 UIN6373 (Rec: 06/20/18 03:32 IKG1557 ICU-C16) Document 06/20/18 04:07 YYM5363 (Rec: 06/20/18 04:08 WBX6638 ICU-C16) Document 06/20/18 05:10 KSW0667 (Rec: 06/20/18 05:23 PRN9033 ICU-C16) Document 06/20/18 06:06 CWQ2686 (Rec: 06/20/18 06:14 VON2962 ICU-C16) Document 06/20/18 08:00 CXL2718 (Rec: 06/20/18 09:28 VFD2923 ISDEMO-M03 ) Document 06/20/18 09:00 DEG0026 (Rec: 06/20/18 09:28 JNF1614 ISDEMO-M03 ) Document 06/20/18 10:00 DES8126 (Rec: 06/20/18 20:15 ZBO3587 ICU-C22) Document 06/20/18 11:00 FBO0147 (Rec: 06/20/18 20:15 TVS7408 ICU-C22) Document 06/20/18 12:00 JTY2787 (Rec: 06/20/18 20:15 RSA7897 ICU-C22) Document 06/20/18 14:00 NBU1876 (Rec: 06/20/18 20:15 IKG1411 ICU-C22) Document 06/20/18 15:00 SPV2881 (Rec: 06/20/18 20:15 TEH0932 ICU-C22) Document 06/20/18 16:00 ZZD7350 (Rec: 06/20/18 20:15 TSO9931 ICU-C22) Document 06/20/18 17:00 EQB1949 (Rec: 06/20/18 20:15 OMY5388 ICU-C22) Document 06/20/18 20:00 UPT9458 (Rec: 06/20/18 20:19 LZV6707 ICU-C16) Document 06/20/18 21:00 CMI3741 (Rec: 06/20/18 21:25 ZIR0528 ISDEMO-M03 ) Document 06/20/18 22:00 ZBL2828 (Rec: 06/20/18 22:07 FCG4236 ICU-C16) Document 06/20/18 23:00 GCN5487 (Rec: 06/20/18 23:05 ACO3915 ICU-C16) Document 06/21/18 01:00 FGX3418 (Rec: 06/21/18 01:13 EFR4145 ICU-C16) Document 06/21/18 02:00 WSN0796 (Rec: 06/21/18 02:03 YRU5913 ICU-C16) Document 06/21/18 03:00 PGR9912 (Rec: 06/21/18 03:03 AJT6784 ICU-C16) Document 06/21/18 04:00 PPX0353 (Rec: 06/21/18 04:24 CID4465 ICU-C16) Document 06/21/18 05:00 ACL4456 (Rec: 06/21/18 05:28 THY5839 ICU-C16) Document 06/21/18 06:00 IBB8753 (Rec: 06/21/18 06:34 GWB4001 ICU-C16) Document 06/21/18 07:00 VGN8742 (Rec: 06/21/18 08:32 DRD0975 ICU-C16) Document 06/21/18 08:00 TQT6390 (Rec: 06/21/18 08:32 ONZ9139 ICU-C16) Document 06/21/18 09:00 KBJ8677 (Rec: 06/21/18 16:03 KAJ2123 ICU-C16) Document 06/21/18 11:30 CDH2062 (Rec: 06/21/18 16:04 XDZ2686 ICU-C16) Document 06/21/18 14:00 CCP4029 (Rec: 06/21/18 16:04 JJQ4637 ICU-C16) Document 06/21/18 16:00 PNM0668 (Rec: 06/21/18 16:53 WIY6908 ICU-C16) Document 06/21/18 18:00 LHX9123 (Rec: 06/21/18 18:28 HFQ0471 ICU-C16) Document 06/21/18 19:00 DKV5511 (Rec: 06/21/18 20:04 QZL1248 ICU-C16) Document 06/21/18 21:00 XHI5173 (Rec: 06/21/18 21:18 ONC1693 ISDEMO-M03 ) Document 06/21/18 22:00 XRB8769 (Rec: 06/21/18 22:10 ORK7371 ICU-C16) Document 06/22/18 00:00 WRC5116 (Rec: 06/22/18 00:03 DEW2224 ICU-C16) Document 06/22/18 02:00 SMA7421 (Rec: 06/22/18 02:11 QNM7032 ICU-C16) Document 06/22/18 02:11 DGZ0158 (Rec: 06/22/18 02:11 OHY0477 ICU-C16) Document 06/22/18 03:00 AKA1656 (Rec: 06/22/18 03:05 LWF9059 ICU-C16) Document 06/22/18 04:00 TTU4101 (Rec: 06/22/18 04:03 IJS8233 ICU-C16) Document 06/22/18 04:58 XZC2155 (Rec: 06/22/18 04:58 JYY3109 ICU-C16) Document 06/22/18 06:32 WSJ3442 (Rec: 06/22/18 06:32 MIS6179 ICU-C16) Document 06/22/18 08:00 HZX6417 (Rec: 06/22/18 08:32 AXF1256 ICU-C16) Document 06/22/18 11:00 RKG1066 (Rec: 06/22/18 11:19 ZKF0416 ICU-C20) Document 06/22/18 11:00 SLO5392 (Rec: 06/22/18 12:27 PRC4535 ICU-C16) Document 06/22/18 13:00 MVM9974 (Rec: 06/22/18 13:11 ZBI4742 ICU-C16) Document 06/22/18 14:00 FCP1017 (Rec: 06/22/18 16:20 ZAB7080 ICU-C16) Document 06/22/18 16:00 KOG2426 (Rec: 06/22/18 16:20 HOM3107 ICU-C16) Document 06/22/18 18:00 GIZ2196 (Rec: 06/22/18 18:25 VAM3324 ISDEMO-M03 ) Document 06/22/18 20:00 PEZ3764 (Rec: 06/22/18 20:26 UDD0810 ICU-C10) Document 06/22/18 22:00 NLQ2209 (Rec: 06/22/18 22:11 RZI3838 ICU-C16) Document 06/23/18 00:00 UOT6696 (Rec: 06/23/18 00:15 DTN3424 ICU-C16) Document 06/23/18 01:00 FLE1835 (Rec: 06/23/18 01:01 FKE2139 ICU-C16) Document 06/23/18 02:00 KKT8151 (Rec: 06/23/18 02:10 YHP7229 ICU-C16) Document 06/23/18 05:00 IZZ4863 (Rec: 06/23/18 05:05 HUR8710 ICU-C16) Document 06/23/18 06:00 GBH7492 (Rec: 06/23/18 06:08 PEL6022 ISDEMO-M03 ) Document 06/23/18 08:00 QZI8652 (Rec: 06/23/18 11:08 CBP7386 ICU-C16) Document 06/23/18 09:00 HHD8778 (Rec: 06/23/18 11:08 OVK9592 ICU-C16) Document 06/23/18 10:00 BHE6003 (Rec: 06/23/18 11:08 BKB0141 ICU-C16) Cardiovascular: RRR - Normal S1 and S2 Respiratory: Symmetrical Chest Expansion and Respiratory Effort - poor respiratory effort Abdominal: - - diffuse tenderness Extremities: - - 1-2+ piting edema - Assessment Assessment: 72 yo female with respiratory failure and perforated GB and bile peritonitis prognosis poor family aware - Plan Consult Plan (MU): Palliative Plan: Long discussion with , son, son in law and grand-daughter about prognosis. understands pt(his ) has a poor prognosis and he just wants to keep her comfortable. We have discussed not using bp support meds, pulling the NG tube, changing Bipap to nasal cannula or mask O2(whichever is more comfortable)and increasing pain meds. is aware she may today as is family. He is in agreement with the plan nurse present for discussion and ICU doctor aware and orders written. Support provided calender runner offered but declined. - Time On Unit Date of Evaluation: 06/23/18 Hospice Consult Time in: 11:00 Hospice Consult Time Out: 12:30 Hospice Consult Time Total: 90 > 50% of Time Spend In Counseling or Coordinating Care: Yes
--- NOTE | 2018-06-23 13:45 | PN ---
Progress Note - Progress Note Date of Service: 06/23/18 SOAP: Subjective: Appears comfortable Objective: Temp Pulse Resp BP Pulse Ox 96.2 F 96 10 109/54 100 06/23/18 03:57 06/23/18 11:30 06/23/18 12:20 06/23/18 11:30 06/23/18 11:30 Intake & Output 06/21/18 06/22/18 06/23/18 06/24/18 06:59 06:59 06:59 06:59 Intake Total 3176 2015 1527 156 Output Total 1018 1610 1235 205 Balance 2158 406 292 -49 Weight 254 lb 13.67 oz 250 lb 7.122 oz 252 lb 3.341 oz Intake: IV Fluids 1663 1148 1280 LR 1663 1148 1280 IVPB 62 60 Magnesium 60 folic acid 62 Medicated IV 231 602 207 156 CC - Norepinephrine/ 231 602 207 156 Levophed Tube Feeding 860 156 Tube Feeding Flush Amount 360 NG Tube Irrigate Amount 50 40 NGT 50 40 Output: VIVIAN #1 30 143 250 Mckeon 888 1167 885 205 Liquid Stool 300 100 Tube Feeding Residual 100 Amount Wasted Other: Estimated Stool Amount Medium PEX: Abdomen soft and distended. Incision CDI. VIVIAN with bilious output Assessment: S/P ex lap for perforated gallbladder Lung CA Severe COPD Malnutrition Prognosis poor Plan: Appreciate Palliative care consult Comfort measures
--- NOTE | 2018-06-23 16:20 | PN ---
Date of Service: 06/23/18 - 16 Critical Care Services: 72 yo F with PMH including SCLC s/p chemoradiation completed 03/2018, recent compression fracture of L1, atrial fibrillation and chronic respiratory failure with hypoxia. She was transferred from [facility] on 06/08 for management of acute cholecystits. On arrival she is noted to be in septic shock and transferred to ICU. Bolused IVF and started on Levophed with subsequent improvement in BP. CT abdomen overnight showed GB wall thickening with no radioopaque calculi. Ascites and colitis also noted. Question of GB rupture and surgery consulted. 06/09: Intubated for increased work of breathing. Continued on broad spectrum antibiotics. Went to OR for exploratory laparoscopy, converted to laparotomy with oversew of cystic duct and placement of open abdomen vac. GB found to be gangrenous with free intaperitonal rupture. 06/10: remains sedated and mechanically ventilated. Lactic acidosis resolved. Continues on Levophed 06/11: returned to OR for washout and closure of abdominal wall. Continues on Vasopressin. Coagulopathy and thrombocytopenia felt secondary to sepsis. HAZEL resolved. 06/12: started on TF. Sedation vacation, following commands. Heparin changed to Arixtra for DVT prophylaxis given thrombocytopenia and HIT panel sent. 06/13: TF on hold due to high residuals. Extubated. Leukocytosis improving. That evening seen by provider for tachypnea, tachycardia and shortness of breath. Poor respiratory effort with weak cough noted. Started on BiPAP. 06/14: remains on BiPAP. JPs serous. 06/15: Vapotherm. VIVIAN noted to be bilious consistent with bile leak 06/16: remains weak and lethargic. Family opted for DNR/DNI. 06/17: abx discontinued after all cultures negative. More communicative after BiPAP all night. Hematology consulted for thrombocytopenia. 06/18: large BM. tolerating TF with minimal residuals. Elevated ALK. 06/19: Hypotensive requiring multiple fluid boluses, restarted on Levophed overnight. HIDA negative for biliary obstruction. 06/20: remains somnolent, continuing to have episodes of desaturation requiring BiPAP. mild leukocytosis. Started on Folate IV to rule out any contribution from a possible Wernickes on mental status given poor nutritional status. 06/21: continues to require BiPAP throughout most of the day. Respiratory failure secondary to generalized weakness and inability to manage secretions. Failing to demonstrate improvement, with poor prognosis. Palliative care team consulted. 06/22: reporting pain in abdomen. on PRN fentanyl. continued depression of mental status. BiPAP all day. 06/23: Family met with Palliative care this morning. They elected comfort care. Vital Signs: Temp Pulse Resp BP SpO2 FiO2 97.8 F 92 30 106/52 100 100 06/23/18 08:00 06/23/18 12:30 06/23/18 15:00 06/23/18 13:44 06/23/18 12:30 06/23 11:12 Physical Exam: seen on rounds 06/23 Gen: resting comfortably HEENT: intact Lungs: nonlabored Cardiac: RRR Abdomen: nondistended Extremities: warm, dry, edematous Neuro: sleeping Fluid Balance (Past 24 Hours): I= O= Net Intake & Output 06/21/18 06/22/18 06/23/18 06/24/18 06:59 06:59 06:59 06:59 Intake Total 3176 2016 1527 543 Output Total 1018 1610 1235 427 Balance 2158 406 292 116 Weight 254 lb 13.67 oz 250 lb 7.122 oz 252 lb 3.341 oz Intake: IV Fluids 1663 1148 1280 387 LR 1663 1148 1280 387 IVPB 62 60 Magnesium 60 folic acid 62 Medicated IV 231 602 207 156 CC - Norepinephrine/ 231 602 207 156 Levophed Tube Feeding 860 156 Tube Feeding Flush Amount 360 NG Tube Irrigate Amount 50 40 NGT 50 40 Output: VIVIAN #1 30 143 250 Mckeon 888 1167 885 427 Liquid Stool 300 100 Tube Feeding Residual 100 Amount Wasted Other: Estimated Stool Amount Medium Labs: none today Studies: 06/21 CXR - pulmonary edema improved. persistent pleural effusions with associated basilar atelectasis 06/19 HIDA - no biliary obstruction. nonvisualization of gallbladder 06/16 CXR - pulmonary edema. cardiomegaly. small bilateral pleural effusions. multifocal airspace disease. 06/13 CXR - cardiomegaly, small bilateral pleural effusion, patchy airspace disease. RUL infiltrate 06/12 CXR - cardiogenic pulmonary edema. bilateral pleural effusions. 06/09 CXR - small bilateral pleural effusions. right basilar atelectasis vs consolidation. 06/09 US GB - GB wall thickening with ascites and positive sonographic bates's sign. hepatomegaly with fatty infiltration of liver 06/08 CXR - small left pleural effusion 06/08 CT abd, pelvis - possible infectius colitis cecum through splenic flexture , hepatic steatosis vs hepatitis, bilateral pleural effusions, infrarenal AAA and left SABI aneursym without rupture. Nutrition: NPO Impression: 72 yo F admitted on 06/08 with perforated gangrenous cholecystitis and bile peritonitis. Ross post operative course with persistent hypoxic respiratory failure requiring high flow and BiPAP to sustain adequate oxygenation. Continued pressor requirement. Now HD 16, failing to progress. Family electing comfort measures only. Plan: Cardiovascular: (1) Septic shock; (2) Chronic atrial fibrillation; (3) Hyperlipidemia; (4) Chronic HTN; (5) Chronic diastolic dysfunction -- HR 88-106 -- SBP 76-130 -- Telemetry -- Vasopressors Levophed @ 3 mcg/min, now off secondary to comfort measures status Home meds: Atorvastatin, Diltiazem, Rivaroxaban, Lasix Pulmonary: (1) Acute on chronic hypoxic respiratory failure; (2) Bilateral pulmonary edema and effusions; (3) COPD; (4) SCLC s/p chemoradiation 03/2018; (5 ) МАРИНА -- RR 3-33 -- sats 87-100 -- BiPAP stopped secondary to comfort care status -- Albuterol Home meds: Tiotoprium, Duoneb, Mometasone/Formoterol, Montelukast Gastrointestinal: (1) Elevated ALK; (2) Gangrenous perforated cholecystitis s/ p exlap and oversew of cystic duct; (3) Bile peritonitis s/p washout; (4) GERD -- LFTs Tbili 0.7 ALK 1024 from 1138 AST 27 ALT 30 -- diet: NPO. NG removed for comfort purposes. -- bowel regimen: None -- ulcer prophylaxis: Pepcid, discontinue as now comfort measures and no enteral access Home meds: Omeprazole, Loperamide, Docusate, Miralax, Simethicone, Lactobacillus , Zofran Endocrine: No acute issues -- monitor BGs Home meds: None Renal: (1) Hypernatremia; (2) Hypomagnesemia; (3) Chronic urinary retention; (4 ) HAZEL, resolved -- UOP: 37 ml/hr -- I/O:1527 ml in / 1235 ml out -- Cr 0.35 from 0.50 -- Lytes Na 150 from 149 K 3.7 Ca 9.0 Mag 1.8 -- LR @ 50 ml/hr Home meds: Lasix, Tamsulosin, Calcitonin, Potassium chloride Infectious disease: (1) Peritonitis, resolving; (2) Sepsis -- Tmax 97.8 -- WBC 11.9 from 13.0 -- Micro 06/13 blood negative 06/09 peritoneal negative wound normal yoshi Urine Evie tropicalis, likely colonization 06/08 MRSA screen negative blood negative -- ABX Course completed Home meds: None Neurologic: (1) Comfort care status; (2) Acute encephalopathy secondary to sepsis; (3) recent compression fracture of L1 vertebra with chronic pain -- Fentanyl patch and PRN For pain control -- PRN Roxanol -- Palliative care following Home meds: Tylenol, Lidoderm patch, Oxycodone, Fentanyl Hematological: (1) Anemia, chronic; (2) Thrombocytopenia; (3) Coagulopathy, resolved -- Hgb 6.9 from 7.0 -- Plt 85 from 86 -- No platelet antibodies dectected -- DVT prophylaxis: Chemoprophylaxis discontinued as patient is now comfort FPC meds: Rivaroxaban Metabolic: (1) Lactic acidosis, resolved Home meds: None Other home meds: Vitamin D Deep vein thrombosis prophylaxis: Not indicated at this time as now comfort care only Dietary: Not indicated at this time as now comfort care only Condition: critical Prognosis: poor Code status: DNR/DNI, comfort care only Disposition: change to floor status Family updated at bedside regarding interval events and plan of care Cumulative time spent in the care of this patient (excluding any procedure time) : at least 40 minutes. Patient care included clinical interview (with patient and/or family), bedside exam of the patient, review of labs, x-rays, and other ancillary data, coordination of (respiratory, nursing care, review of patient's records, discussion regarding patients management with involved consultants, primary physician, pharmacists, and other healthcare personnel (dietary, case management , physical/occupational therapy etc.) Critical Care Time: 40
[2018-06-23 17:33] VITALS: BP 78/55
--- NOTE | 2018-06-23 18:21 | PN ---
Progress Note - Progress Note Date of Service: 06/23/18 Note: PT apneic and asystolic. No response to noxious stimuli. No heart tones or respirations on auscultation Pronounced at 1807
[2018-06-23] MEDS ORDERED: fentaNYL Patch Check Q Shift 1 NOTE FOLLOW UP SCH (19:00)
--- NOTE | 2018-06-23 20:26 | DS ---
summary Date of Admission: 06/08/2018 Date of : 06/23/2018 Time of : 1807 Admitting physician: Discharge Physician: Harriet Benavides MD Code status: DNR Immediate cause of : Sepsis due to gangrenous cholecystitis Final diagnoses: Septic shock Gangrenous perforated cholecystitis Bile peritonitis Acute on chronic respiratory failure Acute encephalopathy secondary to sepsis Bilateral pulmonary edema and effusions COPD Hypernatremia Hypomagnesemia Acute thrombocytopenia Coagulopathy, resolved Lactic acidosis, resolved HAZEL, resolved Recent compression fracture of L1 vertebra Chronic anemia Chronic urinary retention Small cell lung cancer s/p chemoradiation completed 03/2018 Elevated ALK Chronic atrial fibrillation Chronic diastolic dysfuction GERD Brief history of presentation and hospital course: 72 yo F with PMH including SCLC s/p chemoradiation completed 03/2018, recent compression fracture of L1, atrial fibrillation and chronic respiratory failure with hypoxia. She was transferred from [facility] on 06/08 for management of acute cholecystits. On arrival she is noted to be in septic shock and transferred to ICU. Bolused IVF and started on Levophed with subsequent improvement in BP. CT abdomen overnight showed GB wall thickening with no radioopaque calculi. Ascites and colitis also noted. Question of GB rupture and surgery consulted. 06/09: Intubated for increased work of breathing. Continued on broad spectrum antibiotics. Went to OR for exploratory laparoscopy, converted to laparotomy with oversew of cystic duct and placement of open abdomen vac. GB found to be gangrenous with free intaperitonal rupture. 06/10: remains sedated and mechanically ventilated. Lactic acidosis resolved. Continues on Levophed 06/11: returned to OR for washout and closure of abdominal wall. Continues on Vasopressin. Coagulopathy and thrombocytopenia felt secondary to sepsis. HAZEL resolved. 06/12: started on TF. Sedation vacation, following commands. Heparin changed to Arixtra for DVT prophylaxis given thrombocytopenia and HIT panel sent. 06/13: TF on hold due to high residuals. Extubated. Leukocytosis improving. That evening seen by provider for tachypnea, tachycardia and shortness of breath. Poor respiratory effort with weak cough noted. Started on BiPAP. 06/14: remains on BiPAP. JPs serous. 06/15: Vapotherm. VIVIAN noted to be bilious consistent with bile leak 06/16: remains weak and lethargic. Family opted for DNR/DNI. 06/17: abx discontinued after all cultures negative. More communicative after BiPAP all night. Hematology consulted for thrombocytopenia. 06/18: large BM. tolerating TF with minimal residuals. Elevated ALK. 06/19: Hypotensive requiring multiple fluid boluses, restarted on Levophed overnight. HIDA negative for biliary obstruction. 06/20: remains somnolent, continuing to have episodes of desaturation requiring BiPAP. mild leukocytosis. Started on Folate IV to rule out any contribution from a possible Wernickes on mental status given poor nutritional status. 06/21: continues to require BiPAP throughout most of the day. Respiratory failure secondary to generalized weakness and inability to manage secretions. Failing to demonstrate improvement, with poor prognosis. Palliative care team consulted. 06/22: reporting pain in abdomen. on PRN fentanyl. continued depression of mental status. BiPAP all day. 06/23: Family met with Palliative care this morning. They elected comfort care. Data review: Labs and Xrays reviewed Consults: General surgery, internal medicine, Procedures: Exploratory laparotomy, oversew of cystic duct, intubation Significant diagnostic studies: CT with acute cholecystitis, colitis, ascites. HIDA without duct obstruction Treatments: comfort measures Antibiotics Arixtra SUSANNAH protocol Summary took approximately 20 min
== END 2018-06-23 18:07 | disposition expired | DRG 853 ==
LOC: SSU 17:11 → ICU 18:27
PROVIDERS: ADMIT Internal Medicine; ATTEND Internal Medicine Critical Care Medicine
PROC: 0W9G00Z Drainage of Peritoneal Cavity with Drainage Device, Open Approach (ICD-10-PCS; 2018-06-08)
PROC: 3E033XZ Introduction of Vasopressor into Peripheral Vein, Percutaneous Approach (ICD-10-PCS; 2018-06-08)
PROC: 05H533Z Insertion of Infusion Device into Right Subclavian Vein, Percutaneous Approach (ICD-10-PCS; 2018-06-08)
PROC: 5A1955Z Respiratory Ventilation, Greater than 96 Consecutive Hours (ICD-10-PCS; 2018-06-09)
PROC: 0BH17EZ Insertion of Endotracheal Airway into Trachea, Via Natural or Artificial Opening (ICD-10-PCS; 2018-06-09)
PROC: 0WQF0ZZ Repair Abdominal Wall, Open Approach (ICD-10-PCS; 2018-06-11)
PROC: 0DH67UZ Insertion of Feeding Device into Stomach, Via Natural or Artificial Opening (ICD-10-PCS; principal; 2018-06-12)
PROC: 0BP1XDZ Removal of Intraluminal Device from Trachea, External Approach (ICD-10-PCS; 2018-06-13)
PROC: 5A09457 Assistance with Respiratory Ventilation, 24-96 Consecutive Hours, Continuous Positive Airway Pressure (ICD-10-PCS; 2018-06-14)
DX: A41.9 Sepsis, unspecified organism (principal); R65.21 Severe sepsis with septic shock; K65.3 Choleperitonitis; G93.41 Metabolic encephalopathy; J96.21 Acute and chronic respiratory failure with hypoxia; J96.02 Acute respiratory failure with hypercapnia; K81.0 Acute cholecystitis; E87.0 Hyperosmolality and hypernatremia; N17.9 Acute kidney failure, unspecified; C34.90 Malignant neoplasm of unspecified part of unspecified bronchus or lung; R18.8 Other ascites; Z68.41 Body mass index [BMI] 40.0-44.9, adult; J90 Pleural effusion, not elsewhere classified; D62 Acute posthemorrhagic anemia; J81.1 Chronic pulmonary edema; E46 Unspecified protein-calorie malnutrition; K82.A1 Gangrene of gallbladder in cholecystitis; E83.42 Hypomagnesemia; J44.9 Chronic obstructive pulmonary disease, unspecified; D69.59 Other secondary thrombocytopenia; D64.9 Anemia, unspecified; R33.8 Other retention of urine; K21.9 Gastro-esophageal reflux disease without esophagitis; I48.2 Chronic atrial fibrillation; Z66 Do not resuscitate; E66.01 Morbid (severe) obesity due to excess calories; K76.0 Fatty (change of) liver, not elsewhere classified; I48.0 Paroxysmal atrial fibrillation; G47.33 Obstructive sleep apnea (adult) (pediatric); I10 Essential (primary) hypertension; K52.9 Noninfective gastroenteritis and colitis, unspecified; R79.1 Abnormal coagulation profile; G89.29 Other chronic pain; Z88.5 Allergy status to narcotic agent; Z88.2 Allergy status to sulfonamides; Z88.1 Allergy status to other antibiotic agents; Z91.012 Allergy to eggs; Z87.891 Personal history of nicotine dependence; Z83.3 Family history of diabetes mellitus; Z82.5 Family history of asthma and other chronic lower respiratory diseases; K42.9 Umbilical hernia without obstruction or gangrene; R40.2413 Glasgow coma scale score 13-15, at hospital admission; E83.39 Other disorders of phosphorus metabolism; Z51.5 Encounter for palliative care
CPT/HCPCS: 36415; 36600; 71045; 74177; 76705; 78226; 80048; 80053; 80076; 81003; 81015; 82607; 82746; 82803; 82977; 83605; 83690; 83735; 84100; 85025; 85027; 85610; 85730; 86022; 86850; 86900; 86901; 86922; 86927; 87040; 87070; 87073; 87077; 87086; 87106; 87205; 87640; 87641; 93005; 93306; 94002; 94003; 94640; 94660; 94667; 94668; 99233; A9270-GY; A9272-GY; A9537; G8978-GP-CL; G8979-GP-CJ; J0171; J0330; J1644; J1940; J2250; J2270; J2543; J2704; J2710; J3010; J3475; J3480; J3490; J7060; P9017; P9040; P9045; P9047; Q9967